=== PATIENT | male | born 1950 | race Caucasian/White ===

== ENCOUNTER 2018-04-29 12:57 | Observation (INO) | payer MEDICARE, SELFPAY ==
[2018-04-29] VITALS (11 sets, daily range): BP systolic 161–190; BP diastolic 105–121; PULSE 79–97; RESP 16–20; TEMP 36.6–37; O2SAT 92–95; BMI 27.1; BMI 26.5; BMI 26.6
--- NOTE | 2018-04-29 13:14 | CT_ITS ---
STUDY: CT ABDOMEN AND PELVIS WITHOUT CONTRAST REASON FOR EXAM: Male, 67 years old. Abdominal pain. Bloody diarrhea. Prior gastric bypass surgery and abdominal aortic aneurysm repair. RADIATION DOSAGE (If Supplied By Facility): CTDIvol = ( 9.35 ) mGy, DLP = ( 450.76 ) mGycm TECHNIQUE: Transaxial images were obtained from the dome of the diaphragm to the symphysis pubis without oral contrast, and without intravenous contrast. Sagittal and coronal images were reconstructed. Individualized dose optimization techniques were used for this CT. COMPARISON: Comparison is made with prior examination dated July 05, 2017. FINDINGS: The visualized lung bases are unremarkable. Coronary artery calcification. There is a 8.7 mm cyst in the superior aspect of the right lobe of the liver. There are surgical clips in the gallbladder fossa consistent with a prior cholecystectomy. Normal spleen. Normal pancreas. Normal bilateral adrenal glands. Stable 3.3 cm x 2.6 m cyst in the lateral inferior portion of the right kidney. Normal left kidney. Status post subtotal gastrectomy. Anastomosis clips are seen in the distal small bowel and right hemicolon as well as in the mid left small bowel loops. These are unchanged. Scattered sigmoid diverticula. There are surgical clips in the region of the appendix consistent with a prior appendectomy. There is scattered atherosclerotic calcification of the abdominal aorta, without a demonstrated aneurysm. Normal inferior vena cava. Normal retroperitoneum. Normal urinary bladder. There is evidence of an umbilical hernia containing nondilated small bowel loops. There are diffuse degenerative changes of the visualized lumbar spine. CT/Abdomen/Pelvis without Cont IMPRESSION: Midline ventral hernia containing nondilated small bowel loops. Postsurgical changes in the stomach as well as in the small bowel and colon. There has been no change. Electronically Signed: Mckay Blackwood MD at 14:07 EDT Tel [phone], Service support ,
--- NOTE | 2018-04-29 13:17 | ED.VISSUMM ---
- ER Visit Summary Date of Service: 04/29/18 Chief Complaint: Abdominal pain History of Present Illness: The patient is a 67 M who presents with abdominal pain as well as bright red blood per rectum. Started 2 days ago. He said he was having abdominal pain and cramping. 2 days ago he had bright red blood per rectum when he had a bowel movement. Yesterday and today he has had black and brown mixed in his stools. He still has some lower abdominal cramping but it is much improved. He states he was on arthritis pills but took all 60 of them and has not started them back for the past 5 days. He has no history of hemorrhoids or any bleeding. He is on aspirin and Plavix for coronary artery disease. Physical Examination: Vital signs reviewed. HEENT exam unremarkable. Heart is regular rate and rhythm without murmurs. Lungs are clear to auscultation. Abdomen is soft and nontender. He does have multiple scars on the abdomen. Extremities reveal no edema. Skin exam normal. Neurologic exam normal. Test Results: Hemoglobin 11.7, potassium 2.9, BUN 20. CAT scan of the abdomen and pelvis reveals a midline hernia with some small bowel but there is no evidence of obstruction. Emergency Department Course and Treatment: Patient's hemoglobin has decreased. It was 15 last year. The etiology of his GI bleed may be from taking all of the arthritis pills. He may have developed an ulcer. Patient will be given Protonix here. Discussed with Dr. Mendes and he will be available to see the patient as needed. Patient was also discussed with hospitalist for admission Treatment Plan: [] Disposition: Admit Impression: GI bleed This note was generated with [employer] dictation software. It may contain incorrect words, spelling, and punctuation that were not noted in review of the chart prior to signing ED Disposition - Plan for ED Patient: Chief Complaint: GI Bleed Referrals: Kelley Tolbert MD [Primary Care Provider] -
[2018-04-29 13:34] LABS: Absolute Lymphocyte Count 1.17 X10^3/ul (0.83-4.51); Absolute Neutrophil Count 5.3 X10^3/uL (2.0-7.7); Basophil# 0.03 X10^3/uL; Basophil% 0.4 % (0-1); Eosinophil# 0.14 X10^3/uL; Eosinophils% 1.9 % (0-5); Hemoglobin 11.7 g/dl (13.0-16.5); Lymphocyte # 1.17 X10^3/ul (4.0); Lymphocyte % 15.9 % (19-41); Mean Corp Hgb Conc 33.4 g/gl (32-36); Mean Corpuscular Hgb 32.1 pg (27.0-32.0); Mean Corpuscular Volume 95.9 fL (80-94); Mean Platelet Vol. 9.2 fl (6.2-12.0); Monocyte# 0.66 X10^3/uL; Neutrophil # 5.33 X10^3/uL (2.7-7.7); Neutrophil % 72.7 % (47-70); POSITIVE COUNT NO; POSITIVE DIFFERENTIAL NO; POSITIVE MORPHOLOGY NO; Platelet Count 215 K/mm3 (150-450); RBC Distribution Width CV 15.2 % (11.6-14.6); RBC Distribution Width SD 52.9 fl (35.1-43.9); Red Blood Count 3.65 M/mm3 (4.6-6.2); White Blood Count 7.3 K/mm3 (4.4-11.0)
[2018-04-29 13:49] LABS: ALB/GLOB Ratio 0.9 RATIO (0.9-2.4); AST(SGOT) 13 U/L (15-37); Alanine Aminotransfer ALT/SGPT 16 U/L (16-61); Albumin, Serum 3.1 g/dL (3.2-5.0); Alkaline Phosphatase 65 U/L (45-117); Anion Gap 8 (5-15); BUN 20 mg/dL (7-18); BUN/Creat Ratio 16.5 RATIO (10-20); Calcium,Total 8.2 mg/dL (8.5-10.1); Chloride 106 mmol/L (98-107); Creatinine, Serum 1.21 mg/dL (0.70-1.30); EST Glomerular Filtration Rate 64 mL/min (>60); Est Glom Filt Rate - Afr Amer 77 mL/min (>60); Globulin 3.4 g/dL (2.2-4.2); Glucose 87 mg/dL (74-106); Potassium 2.9 mmol/L (3.5-5.1); Protein, Total 6.5 g/dL (6.4-8.2); Sodium Level 143 mmol/L (136-145)
--- NOTE | 2018-04-29 14:30 | PCM.HP.STD ---
Problem List (1) Lower GI bleed Status: Acute History of Present Illness Date of Admission: 04/29/18 Chief Complaint: Lower GI bleed The patient is a 67 year old M with an extensive past medical history which includes CAD status post quadruple bypass, and carotid stenting, history of throat cancer, and hypotension. Was admitted by the ED on 04/29/2018 with a complaint of rectal bleeding of one day duration. According to patient, went to have a bowel movement and realized that the toilet bowl was full of from blood with very little bowel movement. It recurred today as well as so he decided coming to the ED. This is first episode of rectal bleeding. He denies any history of diverticular disease, any weight loss, any pain with the rectal bleeding or any vomiting. Patient is on aspirin and Plavix and states that he was put on a medication to help with his arthritis by his primary care doctor. He states he takes 1 tablet a day and on the medication information list, it said not to take medication if patient had heart stents; this is likely therefore an NSAID he was taking. 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 He admitted to mild shortness of breath but that is chronic and also complained of lightheadedness but attributed this to vertigo which he states is chronic since he had his throat cancer. He denied any coffee-ground emesis or abdominal pain. 12 point review of systems otherwise negative. In the ED, his vitals were significant for temperature of 97.9 Fahrenheit, blood pressure 167/116, pulse rate of 92 and respiratory rate of 16. Labs were significant for potassium of 2.9 and hemoglobin of 11.7, platelets where normal at 215. He had a CT of his abdomen and pelvis which was significant for midline ventral hernia with nondilated bowel loops. He has been admitted to be managed for lower GI bleed. [] Past Medical History Past Medical History (Chronic Problems): Chronic Problems (Last Reviewed 04/29/18 @ 09:47 by Terry Dunbar MD) Dyspnea on exertion (Chronic) Fatigue (Chronic) Atherosclerosis of [place] coronary artery of [place] heart without angina pectoris (Chronic) CABG 2012; NSTEMI 08/31/2014; Syncope (Chronic) Bilateral carotid artery stenosis (Chronic) History of gastric bypass (Chronic) Hypertension (Chronic) Hyperlipidemia (Chronic) History of coronary artery bypass graft (Chronic 02/26/15) LEVINE-LAD, SVG to diag and LCx. SVG to PDA of RCA 02/26/2013 @ [facility]; Adrenal insufficiency (Chronic) Generalized weakness (Chronic) Non compliance w medication regimen (Chronic) Orthostatic hypotension (Chronic) Asthma (Chronic) Depression (Chronic) Tonsillar cancer (Chronic) diagnosed in 2005 and treated with surgery, radiation and cis-platinin Hypothyroidism (Chronic) Medical History: Medical History (Last Reviewed 04/29/18 @ 09:47 by Terry Dunbar MD) Dyspnea on exertion (Chronic) R06.09 Fatigue (Chronic) R53.83 Atherosclerosis of [place] coronary artery of [place] heart without angina pectoris (Chronic) I25.10 CABG 2012; NSTEMI 08/31/2014; Syncope (Chronic) R55 Bilateral carotid artery stenosis (Chronic) I65.23 Hypertension (Chronic) I10 Hyperlipidemia (Chronic) E78.5 Adrenal insufficiency (Chronic) E27.40 Hypophosphatemia (Acute) E83.39 Generalized weakness (Chronic) R53.1 Hypokalemia (Acute) E87.6 Non compliance w medication regimen (Chronic) Z91.14 Orthostatic hypotension (Chronic) I95.1 Hypoxemia (Acute) R09.02 Asthma (Chronic) J45.909 Depression (Chronic) F32.9 Tonsillar cancer (Chronic) C09.9 diagnosed in 2005 and treated with surgery, radiation and cis-platinin Hypothyroidism (Chronic) E03.9 Allergies ciprofloxacin [From Cipro] Adverse Reaction (Verified 04/29/18 13:00) Vomiting ciprofloxacin HCl [From Cipro] Adverse Reaction (Verified 04/29/18 13:00) Vomiting metronidazole [From Flagyl] Adverse Reaction (Verified 04/29/18 13:00) Vomiting morphine Adverse Reaction (Verified 04/29/18 13:00) Other ofloxacin [From Floxin] Adverse Reaction (Verified 04/29/18 13:00) Vomiting Home Medications: Ambulatory Orders Medication Instructions Recorded Clopidogrel Bisulfate [Plavix] 75 mg PO DAILY 10/12/15 Levothyroxine [Synthroid] 75 mcg PO DAILY 10/12/15 Albuterol Inhaler [Ventolin Hfa] 1 puff INHALATION Q4H PRN PRN 12/03/16 Potassium Chloride [K-Dur] 20 meq PO BIDCM #60 tab 12/05/16 sertraline 50 mg tablet 50 mg PO QDAY 08/01/17 atorvastatin 20 mg tablet 20 mg PO QDAY 02/03/18 fludrocortisone 0.1 mg tablet 0.1 mg PO QDAY 02/03/18 prednisone 5 mg tablet 5 mg PO BID 02/03/18 guaifenesin ER 1,200 mg tablet, 1,200 mg PO Q12H 04/03/18 extended release 12 hr meclizine 12.5 mg tablet 12.5 mg PO BID-TID PRN 04/03/18 multivitamin tablet 1 tab PO DAILY 04/03/18 Aspirin [Aspirin EC] 81 mg PO DAILY 04/29/18 Etodolac [Lodine] 300 mg PO Q8H 04/29/18 Fluticasone Propionate 2 puff NASAL QHS 04/29/18 Ranitidine [Zantac] 150 mg PO BID 04/29/18 Sucralfate 1 tab PO TID 04/29/18 Surgical History: Surgical History (Last Reviewed 04/29/18 @ 09:47 by Terry Dunbar MD) History of gastric bypass (Chronic) Z98.890 History of coronary artery bypass graft (Chronic) Onset Date: 02/26/15 LEVINE-LAD, SVG to diag and LCx. SVG to PDA of RCA 02/26/2013 @ [facility]; Surgical History: cholecystectomy, coronary bypass surgery, - - cholecystectomy, appendectomy, H&N surgery for tonsillar cancer Lives: Spouse/ Significant Other Smoking Status: Never smoker Alcohol: None Drugs: None - *Family History Maternal Family History: Family History (Last Reviewed 04/29/18 @ 09:47 by Terry Dunbar MD) Mother CAD (coronary artery disease) Lung cancer Father Alcoholism Brother Diabetes Hypertension History Items: No pertinent history Review of Systems Constitutional: Denies: Chills, Fever, Malaise, Weakness, Weight Change, Fatigue Eyes: Denies: Cataracts HEENT: Denies: Head Aches, Sinus Congestion, Sinus Drainage Cardiovascular: Reports: Light Headedness - chronic. Denies: Chest Pain, Chest Tightness, Edema, Heaviness, Orthopnea, Palpitations, Paroxysmal Noc. Dyspnea, Syncope Respiratory: Denies: Cough, Shortness of Breath, Shortness of breath at rest, Sputum production Gastrointestinal: Reports: Hematochezia. Denies: Abdominal Pain, Dyspepsia, Hematemesis, Nausea, Melena, Vomiting Genitourinary: Denies: Dysuria Musculoskeletal: Denies: Joint Pain, Joint Tenderness Skin: Denies: Rash, Wounds Neurological: Denies: Numbness, Tingling, Focal weakness Psychiatric: Denies: Anxiety, Depression, Homicidal Ideations, Suicidal Ideations Hematologic/ Lymphatic: Denies: Easy Bruising, Easy Bleeding VTE Information - Inpt Only VTE Present on Admission: No VTE Mechan Device Prophylaxis: SCD's VTE Pharm Prophylaxis ordered?: Yes Reason prophylaxis not ordered:: Medical Contraindication - rectal bleeding - Physical Exam General: Alert, Oriented x3, Cooperative, No apparent distress HEENT: Atraumatic, PERRLA, EOMI, Normocephalic Oral: Dry Mucosa Neck: Supple, No JVD, Negative Carotid Bruits, No Nodes Lungs: Clear to auscultation, Normal air movement Cardiovascular: Regular rate, Regular Rhythm, Normal S1, Normal S2, No murmurs Abdomen: Bowel Sounds Present, Soft, Non Tender, Non-Distended, No Hepato-splenomegaly, - - well healed site in epigastrum where PEG tube was inserted Extremities: No edema, Capillary Refill Less than 3 Seconds Skin: No rashes, No breakdown Musculoskeletal: No Tenderness to Palpation of Joints or Extremities Lymphatic: No Cervical, Supraclavicular, or Inguinal Adenopathy Neurological: Cranial nerves II-XII grossly intact, Neuro grossly intact, Motor Exam 5/5 strength throughout Psych/Mental Status: Normal Affect, Appropriate, Alert and oriented to time, place, person, mood and affect Vital Signs Temp Pulse Resp BP Pulse Ox 97.9 F 92 16 167/116 H 94 04/29/18 12:58 04/29/18 13:03 04/29/18 12:58 04/29/18 13:03 04/29/18 12:58 Oxygen Delivery Method Room Air Weight: 200 lb Body Mass Index (BMI) 27.1 Finger Stick Blood Glucose 104 Laboratory Tests Past 24 Hrs 04/29/18 04/29/18 13:25 13:25 WBC 7.3 RBC 3.65 L Hgb 11.7 L Hct 35.0 L MCV 95.9 H MCH 32.1 H MCHC 33.4 RDW 15.2 H RDW Differential 52.9 H Plt Count 215 MPV 9.2 Immature Gran % (Auto) 0.100 Neut % (Auto) 72.7 H Lymph % (Auto) 15.9 L [place] % (Auto) 9.0 Eos % (Auto) 1.9 Baso % (Auto) 0.4 Absolute Neuts (auto) 5.3 Absolute Lymphs (auto) 1.17 Total Counted Not Reportable Sodium 143 Potassium 2.9 L Chloride 106 Carbon Dioxide 29.0 Anion Gap 8 BUN 20 H Creatinine 1.21 Estim Creat Clear Calc 66.80 Est GFR (MDRD) Af Amer 77 Est GFR (MDRD) Non-Af 64 BUN/Creatinine Ratio 16.5 Glucose 87 Calcium 8.2 L Total Bilirubin 0.50 AST 13 L ALT 16 Alkaline Phosphatase 65 Total Protein 6.5 Albumin 3.1 L Globulin 3.4 Albumin/Globulin Ratio 0.9 Diagnostic Data Abdomen/Pelvis CT 04/29/18 13:14 IMPRESSION: Midline ventral hernia containing nondilated small bowel loops. Postsurgical changes in the stomach as well as in the small bowel and colon. There has been no change. Electronically Signed: Mckay Blackwood MD at 14:07 EDT Tel [phone], Service support , Assessment/Plan All Active Problems (Last Reviewed 04/29/18 @ 09:47 by Terry Dunbar MD) Lower GI bleed (Acute) Hypophosphatemia (Acute) Hypokalemia (Acute) Hypoxemia (Acute) Angina pectoris (Resolved) NSTEMI (non-ST elevated myocardial infarction) (Resolved) 67-year-old male presenting with a one-day history of lower GI bleeding. 1. Lower GI bleeding likely medication induced vs diverticular disease Bleeding started 1 day ago. It is painless bright red with no associated clots. CT scan of abdomen only showed ventral hernia. Hemoglobin is 11, with baseline from 1 year ago been around 16. Platelets are normal. To [facility] with telemetry. Keep n.p.o. for now. IV fluid normal saline 1 20 cc/h IV pantoprazole 40 mg twice daily. Hold aspirin, Plavix and NSAIDs. consult general surgery. 2. Hypokalemia: Potassium is 2.9 today. Has a history of hypokalemia. Will replace. Will check magnesium level as well. Will monitor. 3. CAD s/p CABG and carotid stents hold aspirin, plavix. continue statins 4. Hypotension: on midodrine, likely for orthostatic hypotension. will monitor 5. Macrocytic anemia Hb is 11.7, with macrocytosis normochromic will check iron panel, vitamin B12 and folate 6. Hypothyroidism: Synthroid 75 mg daily. Will continue. 7. History of throat cancer: stable. S/p treatment. 8. History of adrenal insufficiency: on PO prednisone 5mg bid. Will hold o/a of NPO status, and start IV solumedrol 20mg bid; the slightly higher replacement dose will also help with stress hormone replacement. DVT prophylaxis:SCDs. No anti-coagulation on account of rectal bleeding Prophylaxis: On IV PPI Code Status: Full code. Patient counselled extensively about different types of code status, and differences between DNRCC, DNRCCA and full code. Patient elects to be full code. Total face to face time 17 mins Code Visit Inpatient E&M: 72773 Init Hosp L3 Procedures: 45204 Advncd Care Plan 30 Min
[2018-04-29] MEDS: 0.9% Normal Saline 1,000 ML 100 ML IV (15:57)
[2018-04-29 17:05] LABS: Ferritin 24 ng/mL (26-388); Iron 63 ug/dL (65-175); Iron Binding Capacity,Total 366 ug/dL (250-450); Magnesium 2.2 mg/dL (1.6-2.6)
[2018-04-29 17:10] LABS: International Normalized Ratio 0.9; Prothrombin Time (Protime)PT. 12.5 SECONDS (11.7-14.9); Vitamin B12 287 pg/mL (211-911)
[2018-04-29] MEDS: Sertraline 50 MG Tablet PO (17:19)
--- NOTE | 2018-04-29 20:13 | CON.PCM_ITS ---
Reason for Consult Date of Consultation: 04/29/18 Reason for Consultation: GI Bleed History of Present Illness: The patient is a 67 year old M who recently underwent bilateral carotid artery stenting. The patient is on aspirin and Plavix. he was given a prescription of Naprosyn but cautioned against taking it due to the risk of ulcerations. the patient had an upper respiratory infection at the end of March. He was initially given antibiotics and given a steroid taper. Due to pain, the patient is also taking significant quantities of Excedrin. he noted dark stools for a day, then bloody stools followed by maroon to dark or melena stools again. He denies dizziness. He does note some epigastric discomfort. He presented emergency department. A complete blood count the [facility] in January, had a hemoglobin of 14.7. Today's hemoglobin is 11.7. the patient has a complex past history.I had most recently seen the patient July,. My note at that time included: Salty is a patient I am following for an incisional hernia and a leaking PEG tube site. ?? ? The patient's most significant concern his chronic drainage from a left sub costal wound site. 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 ?The patient noted no problems with the PEG tube site after removal until underwent coronary artery bypass grafting in 2012. ?Since that time, he notes that the upper left incision site which he recalls is being previously the PEG tube site now has chronic drainage. ??He notes no gastric contents but occasionally purulent drainage from this site. ?He recalls his chest tube was located in that site of my PEG tube placement when he underwent his CABG - February 14, 2013. ???He had a previous gastric reduction surgery performed by Dr. Craig Katz which involved stapling of the stomach and a gastrostomy tube placed lower in his left upper quadrant in the . ?When I saw him for PEG tube placement in 2004, I had to place the PEG tube more proximally in the stomach felt to be above his restrictive staple line. ? I did initially seen him in July 2013 for this complaint. ?I obtained a CT scan of the abdomen and pelvis and chest. ?This demonstrated: ? CT ABDOMEN FINDINGS: * ?Midline abdominal hernia containing multiple loops of small bowel noted on image 187. No obstruction is seen. * ?Multiple postsurgical clips in the epigastric region noted image 154. * ?Soft tissue density or changes from previous PEG tube noted image 69 LEFT side of the midline just below the xiphoid process extending into the stomach. No fluid collections are seen in this area. No definite fistulous tract lumen is seen. Liver: Liver texture unremarkable. ?There is a subcentimeter cyst dome of liver RIGHT side image 94. Postsurgical clips in the gallbladder fossa noted Biliary tree: Common duct normal in size. No intrahepatic bile duct dilatation is seen. Pancreas: Unremarkable Spleen: Spleen normal size. ?No focal masses. Adrenals: Normal size. Kidneys: Are seen to function bilaterally. ?RIGHT renal cyst is noted. Lymph nodes: No enlarged lymph nodes are seen. Retroperitoneum: The aorta is normal in size. ?Otherwise unremarkable. CT PELVIS FINDINGS: Lymph Nodes: No enlarged lymph nodes. Urinary bladder: Unremarkable IMPRESSION: 1. ?No fluid collections are seen at the site of the previous PEG tube tract. 2. ?Findings in the chest probably represent post radiation changes 3. ?Midline anterior abdominal wall hernia containing nondilated loops of small bowel ? ? ?I felt it was unusual that the patient's drainage started this many years follo wing PEG tube placement and that he had no problem for over 5 years after the tube was removed. ?I then performed upper and lower endoscopy on 09/15/2013. The patient was found to have gastritis, previous gastrostomy present, patent vertical banded gastroplasty, gastric polyps, and evidence of where the PEG site has not closed completely. Colon noted multiple small diverticula in the sigmoid colon. Pathology demonstrated Antrum biopsy noting chronic inactive gastritis with single and minute non necrotizing granuloma, stomach polypectomy noting fundic gland polyp, and proximal to gastric band biopsy with no diagnostic alteration. H. Pylori was negative. The patient notes no complaints since the procedure. This demonstrated postsurgical changes consistent with his previous gastric stapling. ?My PEG site which demonstrated a indentation intragastrically but I was not able to feed a biopsy probe through the tract or feed a probe from the external abdominal cavity into the stomach through the tract. ? The patient noted that he did well for some time following this endoscopy and had minimal symptoms of drainage but recently he has noted increased drainage and occasionally what sounds like air leaking out of the site. ?He still does not note actual food or gastric contents draining but occasionally purulent discharge. ?He returns for repeat evaluation for the chronic above issue. ? ? The patient in August had a CT scan of the chest. ?This demonstrated the tract with indentation but no signs of intra-abdominal abscess or other abnormality. ? He returns now in September 2016 noting drainage increasing more frequently after eating. ?He also notes that his incisional hernias are enlarging both in the upper midline which seemed to be secondary to his cardiac surgical procedure and an incisional hernia below that site in the upper midline/just slightly supraumbilical region. ???He also has a history of tonsillar cancer. ?He received neck radiation. ?He had a duplex with a finding of carotid stenosis and was referred to Dr. Nieto for vascular surgical evaluation at [facility]. ? I repeated the CT scan with oral contrast this time asking the patient to strain to see if he could have any contrast be demonstrated his ejecting from the site. ?Due to testing and other issues the CT scan was not obtained until March 2017. ?CT scan again demonstrates the tract without any filling of contrast but both the subxiphoid incisional hernia which is just medial to the gastrostomy track and a larger super umbilical incisional hernia are increasing in size and are now giving the patient discomfort. ? The patient's most significant concern his chronic drainage from a left sub costal wound site. 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 ?The patient noted no problems with the PEG tube site since removal. ?He recently underwent coronary artery bypass grafting. ?Since that time, he notes that the upper left incision site which she recalls is being previously the PEG tube site now has chronic drainage. ?He also feels that his sternum seems somewhat unstable. ?He notes no gastric contents but occasionally purulent drainage from this site. ?He does not recall whether a chest tube was located in that site or not post CABG. ? I obtained a CT scan of the abdomen and pelvis and chest. ?This demonstrated no obvious abnormalities related to the coronary bypass grafting and no residual metallic or wire structures. ?This site does seem to be directed towards the PEG site. ?In repeat discussion with Radha Palomo, he notes that he had had gastric banding by Dr. Katz. ?On CT scan, there appears to be a surgical phyllis in the stomach not completely near the PEG site but this does not seem consistent with pure gastric banding. ?He also seems unusual at the patient's drainage what it started this many years following PEG tube placement. ? I communicated with Dr. Narciso Sears [facility] fluid noted a similar problem and is recommended to repeat upper endoscopy with resolution clip placement ? I performed upper endoscopy on May 07, 2017 and placed 2 clips at the leaking gastrostomy site and also noted a degree of gastritis which I performed a biopsy. ?Pathology demonstrated: ? Stomach, antrum, biopsy - Oxyntic type gastric mucosa with changes of chemical gastritis (reactive gastropathy). - No Helicobacter organisms identified. ? The patient notes no further bilious drainage from the site and no bubbling when he eats or coughs like he had previous to clip placement. ?He also notes no irritation around the site which she felt was from the leakage of gastric contents. ? He now notes a scant amount of white drainage from the site. ?He feels this is likely consistent with drainage as noted in past from what he thought was the chest tube site which came out just medial to the previous PEG site. ?His interpretation is that the gastric side is no longer leaking but the chronic issue at from the chest tube site is now the scant but less problematic drainage. Past Medical History Past Medical History (Chronic Problems): Chronic Problems (Last Reviewed 04/29/18 @ 09:47 by Terry Dunbar MD) Dyspnea on exertion (Chronic) Fatigue (Chronic) Atherosclerosis of [place] coronary artery of [place] heart without angina pectoris (Chronic) CABG 2012; NSTEMI 08/31/2014; Syncope (Chronic) Bilateral carotid artery stenosis (Chronic) History of gastric bypass (Chronic) Hypertension (Chronic) Hyperlipidemia (Chronic) History of coronary artery bypass graft (Chronic 02/26/15) LEVINE-LAD, SVG to diag and LCx. SVG to PDA of RCA 02/26/2013 @ [facility]; Adrenal insufficiency (Chronic) Generalized weakness (Chronic) Non compliance w medication regimen (Chronic) Orthostatic hypotension (Chronic) Asthma (Chronic) Depression (Chronic) Tonsillar cancer (Chronic) diagnosed in 2005 and treated with surgery, radiation and cis-platinin Hypothyroidism (Chronic) Medical History: Medical History (Last Reviewed 04/29/18 @ 09:47 by Terry Dunbar MD) Dyspnea on exertion (Chronic) R06.09 Fatigue (Chronic) R53.83 Atherosclerosis of [place] coronary artery of [place] heart without angina pectoris (Chronic) I25.10 CABG 2012; NSTEMI 08/31/2014; Syncope (Chronic) R55 Bilateral carotid artery stenosis (Chronic) I65.23 Hypertension (Chronic) I10 Hyperlipidemia (Chronic) E78.5 Adrenal insufficiency (Chronic) E27.40 Hypophosphatemia (Acute) E83.39 Generalized weakness (Chronic) R53.1 Hypokalemia (Acute) E87.6 Non compliance w medication regimen (Chronic) Z91.14 Orthostatic hypotension (Chronic) I95.1 Hypoxemia (Acute) R09.02 Asthma (Chronic) J45.909 Depression (Chronic) F32.9 Tonsillar cancer (Chronic) C09.9 diagnosed in 2005 and treated with surgery, radiation and cis-platinin Hypothyroidism (Chronic) E03.9 Allergies ciprofloxacin [From Cipro] Adverse Reaction (Verified 04/29/18 13:00) Vomiting ciprofloxacin HCl [From Cipro] Adverse Reaction (Verified 04/29/18 13:00) Vomiting metronidazole [From Flagyl] Adverse Reaction (Verified 04/29/18 13:00) Vomiting morphine Adverse Reaction (Verified 04/29/18 15:21) after 2-3 days I turn into a monster ofloxacin [From Floxin] Adverse Reaction (Verified 04/29/18 13:00) Vomiting Home Medications: Ambulatory Orders Medication Instructions Recorded Clopidogrel Bisulfate [Plavix] 75 mg PO DAILY 10/12/15 Levothyroxine [Synthroid] 75 mcg PO DAILY 10/12/15 Albuterol Inhaler [Ventolin Hfa] 1 puff INHALATION Q4H PRN PRN 12/03/16 Potassium Chloride [K-Dur] 20 meq PO BIDCM #60 tab 12/05/16 sertraline 50 mg tablet 50 mg PO QDAY 08/01/17 atorvastatin 20 mg tablet 20 mg PO QDAY 02/03/18 fludrocortisone 0.1 mg tablet 0.1 mg PO QDAY 02/03/18 prednisone 5 mg tablet 5 mg PO BID 02/03/18 guaifenesin ER 1,200 mg tablet, 1,200 mg PO Q12H 04/03/18 extended release 12 hr meclizine 12.5 mg tablet 12.5 mg PO BID-TID PRN 04/03/18 multivitamin tablet 1 tab PO DAILY 04/03/18 Aspirin [Aspirin EC] 81 mg PO DAILY 04/29/18 Etodolac [Lodine] 300 mg PO Q8H 04/29/18 Fluticasone Propionate 2 puff NASAL QHS 04/29/18 Ranitidine [Zantac] 150 mg PO BID 04/29/18 Sucralfate 1 tab PO TID 04/29/18 Surgical History: Surgical History (Last Reviewed 04/29/18 @ 09:47 by Terry Dunbar MD) History of gastric bypass (Chronic) Z98.890 History of coronary artery bypass graft (Chronic) Onset Date: 02/26/15 LEVINE-LAD, SVG to diag and LCx. SVG to PDA of RCA 02/26/2013 @ [facility]; Surgical History: cholecystectomy, coronary bypass surgery, - - cholecystectomy, appendectomy, H&N surgery for tonsillar cancer Lives: Spouse/ Significant Other Smoking Status: Never smoker Alcohol: None Drugs: None - *Family History Maternal Family History: Family History (Last Reviewed 04/29/18 @ 09:47 by Terry Dunbar MD) Mother CAD (coronary artery disease) Lung cancer Father Alcoholism Brother Diabetes Hypertension History Items: No pertinent history Review of Systems Constitutional: Reports: Fatigue. Denies: Chills, Fever, Weight Change HEENT: Denies: Head Aches, Sinus Congestion, Sinus Drainage Cardiovascular: Denies: Chest Pain, Palpitations Respiratory: Denies: Cough, Shortness of breath at rest, Sputum production Gastrointestinal: Reports: Abdominal Pain, Hematochezia, Melena. Denies: Nausea, Vomiting Genitourinary: Denies: Dysuria Musculoskeletal: Denies: Joint Pain, Joint Tenderness Skin: Denies: Rash, Wounds Neurological: Denies: Numbness, Tingling, Focal weakness Psychiatric: Denies: Anxiety, Depression, Homicidal Ideations, Suicidal Ideations Hematologic/ Lymphatic: Denies: Easy Bruising, Easy Bleeding - Physical Exam General: Alert, Oriented x3, Cooperative HEENT: Atraumatic, PERRLA, EOMI, Normocephalic Neck: Supple, No JVD, Negative Carotid Bruits Lungs: Clear to auscultation, Normal air movement Cardiovascular: Regular rate, No murmurs Abdomen: Bowel Sounds Present, Soft, Tender - In the epigastrium Extremities: No edema, Capillary Refill Less than 3 Seconds Skin: No rashes, No breakdown Musculoskeletal: No Tenderness to Palpation of Joints or Extremities Neurological: Cranial nerves II-XII grossly intact Psych/Mental Status: Normal Affect, Appropriate Vital Signs Temp Pulse Resp BP Pulse Ox 98.3 F 84 20 H 190/119 H 94 04/29/18 15:51 04/29/18 18:00 04/29/18 15:51 04/29/18 15:51 04/29/18 15:51 Oxygen Delivery Method Room Air Weight: 88.859 kg Body Mass Index (BMI) 26.5 Finger Stick Blood Glucose 104 Intake and Output for Last 24 Hours 04/27/18 04/28/18 04/29/18 23:59 23:59 23:59 Intake Total 550 / 550 Output Total 600 / 600 Balance -50 / -50 Laboratory Tests Past 24 Hrs 04/29/18 04/29/18 04/29/18 13:25 13:25 16:01 WBC 7.3 RBC 3.65 L Hgb 11.7 L Hct 35.0 L MCV 95.9 H MCH 32.1 H MCHC 33.4 RDW 15.2 H RDW Differential 52.9 H Plt Count 215 MPV 9.2 Immature Gran % (Auto) 0.100 Neut % (Auto) 72.7 H Lymph % (Auto) 15.9 L Dixon % (Auto) 9.0 Eos % (Auto) 1.9 Baso % (Auto) 0.4 Absolute Neuts (auto) 5.3 Absolute Lymphs (auto) 1.17 Total Counted Not Reportable PT INR Sodium 143 Potassium 2.9 L Chloride 106 Carbon Dioxide 29.0 Anion Gap 8 BUN 20 H Creatinine 1.21 Estim Creat Clear Calc 66.80 Est GFR (MDRD) Af Amer 77 Est GFR (MDRD) Non-Af 64 BUN/Creatinine Ratio 16.5 Glucose 87 Calcium 8.2 L Magnesium 2.2 Iron 63 L TIBC 366 Ferritin 24 L Total Bilirubin 0.50 AST 13 L ALT 16 Alkaline Phosphatase 65 Total Protein 6.5 Albumin 3.1 L Globulin 3.4 Albumin/Globulin Ratio 0.9 Vitamin B12 RBC Folate Hemolysate RBC Folate Hematocrit Blood Type Antibody Screen 04/29/18 04/29/18 04/29/18 16:01 16:01 16:01 WBC RBC Hgb Hct MCV MCH MCHC RDW RDW Differential Plt Count MPV Immature Gran % (Auto) Neut % (Auto) Lymph % (Auto) Dixon % (Auto) Eos % (Auto) Baso % (Auto) Absolute Neuts (auto) Absolute Lymphs (auto) Total Counted PT 12.5 INR 0.9 Sodium Potassium Chloride Carbon Dioxide Anion Gap BUN Creatinine Estim Creat Clear Calc Est GFR (MDRD) Af Amer Est GFR (MDRD) Non-Af BUN/Creatinine Ratio Glucose Calcium Magnesium Iron TIBC Ferritin Total Bilirubin AST ALT Alkaline Phosphatase Total Protein Albumin Globulin Albumin/Globulin Ratio Vitamin B12 287 RBC Folate Hemolysate RBC Folate Hematocrit Blood Type A POSITIVE Antibody Screen NEGATIVE 04/29/18 16:01 WBC RBC Hgb Hct MCV MCH MCHC RDW RDW Differential Plt Count MPV Immature Gran % (Auto) Neut % (Auto) Lymph % (Auto) Dixon % (Auto) Eos % (Auto) Baso % (Auto) Absolute Neuts (auto) Absolute Lymphs (auto) Total Counted PT INR Sodium Potassium Chloride Carbon Dioxide Anion Gap BUN Creatinine Estim Creat Clear Calc Est GFR (MDRD) Af Amer Est GFR (MDRD) Non-Af BUN/Creatinine Ratio Glucose Calcium Magnesium Iron TIBC Ferritin Total Bilirubin AST ALT Alkaline Phosphatase Total Protein Albumin Globulin Albumin/Globulin Ratio Vitamin B12 RBC Folate Hemolysate Pending RBC Folate Pending Hematocrit Pending Blood Type Antibody Screen Assessment/Plan All Active Problems (Last Reviewed 04/29/18 @ 09:47 by Terry Dunbar MD) Lower GI bleed (Acute) Hypophosphatemia (Acute) Hypokalemia (Acute) Hypoxemia (Acute) Angina pectoris (Resolved) NSTEMI (non-ST elevated myocardial infarction) (Resolved) GI bleed-likely upper source due to aspirin, steroids, and Plavix. Patient an unremarkable colonoscopy 2012. He would like not to have another colonoscopy if possible. The patient will be admitted and his hemoglobin will be monitored. If his hemoglobin drops, more significantly. Plan will be for transfusion. Otherwise, I plan to perform upper endoscopy tomorrow. The patient understands the risks, benefits, complications, possible alternatives to endoscopy. Consents to the planned procedure.
[2018-04-29] MEDS: Atorvastatin Calcium 20 MG Tablet PO (21:09)
[2018-04-29] MEDS: guaiFENesin 1,200 MG Tablet 1200 MG PO (21:09)
[2018-04-29] MEDS: Fluticasone 0.05% 1 SPRAY NASAL.SRY 2 SPRAY NASAL (21:10)
[2018-04-29] MEDS: 0.9% NaCl Peripheral Flush Adult/Peds IV (21:10)
[2018-04-29] MEDS: Albuterol 2.5 MG/3 ML VIAL.NEB. INHALATION (22:10)
[2018-04-30] VITALS (21 sets, daily range): BP systolic 127–197; BP diastolic 83–132; PULSE 77–99; RESP 16–20; TEMP 36.5–36.8; O2SAT 93–96; BMI 26.5
[2018-04-30] MEDS: 0.9% Normal Saline 1,000 ML 100 ML IV (02:11)
[2018-04-30] MEDS: Acetaminophen 325 MG Tablet 650 MG PO (03:11)
[2018-04-30 06:24] LABS: Absolute Lymphocyte Count 0.51 X10^3/ul (0.83-4.51); Absolute Neutrophil Count 6.3 X10^3/uL (2.0-7.7); Basophil# 0.02 X10^3/uL; Basophil% 0.3 % (0-1); Hematocrit 35.3 % (40-54); Hemoglobin 11.6 g/dl (13.0-16.5); Lymphocyte # 0.51 X10^3/ul (4.0); Lymphocyte % 7.3 % (19-41); Mean Corp Hgb Conc 32.9 g/gl (32-36); Mean Corpuscular Hgb 31.5 pg (27.0-32.0); Mean Corpuscular Volume 95.9 fL (80-94); Mean Platelet Vol. 9.5 fl (6.2-12.0); Monocyte# 0.22 X10^3/uL; Monocyte% 3.1 % (0-10); Neutrophil # 6.26 X10^3/uL (2.7-7.7); Neutrophil % 89.3 % (47-70); Platelet Count 245 K/mm3 (150-450); RBC Distribution Width CV 14.9 % (11.6-14.6); RBC Distribution Width SD 52.8 fl (35.1-43.9); Red Blood Count 3.68 M/mm3 (4.6-6.2)
[2018-04-30 06:39] LABS: Anion Gap 7 (5-15); BUN 17 mg/dL (7-18); BUN/Creat Ratio 15.9 RATIO (10-20); Calcium,Total 8.1 mg/dL (8.5-10.1); Chloride 108 mmol/L (98-107); Creatinine, Serum 1.07 mg/dL (0.70-1.30); EST Glomerular Filtration Rate 74 mL/min (>60); Est Glom Filt Rate - Afr Amer 89 mL/min (>60); Estimated Creatinine Clearance 75.55 ml/min; Glucose 117 mg/dL (74-106); Potassium 3.6 mmol/L (3.5-5.1); Sodium Level 142 mmol/L (136-145)
[2018-04-30] MEDS: Levothyroxine 75 MCG Tablet PO (06:57)
[2018-04-30 07:02] LABS: Differential Indicated SCAN CRITERIA MET; POSITIVE COUNT NO; POSITIVE DIFFERENTIAL YES; POSITIVE MORPHOLOGY NO
[2018-04-30 07:06] LABS: Differential Comment SCANNED
--- NOTE | 2018-04-30 07:51 | PCM.PN.HOSP ---
Subjective: Patient is a 67-year-old gentleman with multiple comorbidities who presented with lower GI bleed 04/30/2018: Patient seen scheduled to undergo endoscopic evaluation by Dr. Mendes Objective: GENERAL: cooperative HEENT: Atraumatic moist oral mucosa EYES; Anicteric, Normal Conjuctiva NECK; supple, normal thyroid, RESPIRATORY: Clear to auscultation bilaterally, CARDIOVASCULAR: Regular S1 S2, GI: soft, non-tender, normoactive bowel sounds, : No Renal angle tenderness; No marvin EXTREMITIES: No edema, no clubbing, no cyanosis. MUSCULOSKELTAL: No Joint Tenderness; no muscle waisting NEURO: Awake; no lateralizing signs. SKIN: No Rash PSYCH; Normal affect Vitals/I&O's: Vital Signs Temp Pulse Resp BP Pulse Ox 97.7 F L 83 18 143/93 H 94 04/30/18 02:16 04/30/18 07:47 04/30/18 02:16 04/30/18 02:16 04/30/18 02:16 Oxygen Delivery Method Room Air Weight: 88.859 kg Body Mass Index (BMI) 26.5 Finger Stick Blood Glucose 104 Intake and Output for Last 24 Hours 04/28/18 04/29/18 04/30/18 23:59 23:59 23:59 Intake Total 550 / 550 2148 / 2148 Output Total 600 / 600 1800 / 1800 Balance -50 / -50 348 / 348 Musculoskeletal: - - Full range of motion in all major muscle groups. Laboratory Results 04/29/18 13:25: WBC 7.3, RBC 3.65 L, Hgb 11.7 L, Hct 35.0 L, MCV 95.9 H, MCH 32.1 H, MCHC 33.4, RDW 15.2 H, RDW Differential 52.9 H, Plt Count 215, MPV 9.2, Immature Gran % (Auto) 0.100, Neut % (Auto) 72.7 H, Lymph % (Auto) 15.9 L, [place] % (Auto) 9.0, Eos % (Auto) 1.9, Baso % (Auto) 0.4, Absolute Neuts (auto) 5.3, Absolute Lymphs (auto) 1.17, Total Counted Not Reportable 04/29/18 13:25: Sodium 143, Potassium 2.9 L, Chloride 106, Carbon Dioxide 29.0, Anion Gap 8, BUN 20 H, Creatinine 1.21, Estim Creat Clear Calc 66.80, Est GFR (MDRD) Af Amer 77, Est GFR (MDRD) Non-Af 64, BUN/Creatinine Ratio 16.5, Glucose 87, Calcium 8.2 L, Total Bilirubin 0.50, AST 13 L, ALT 16, Alkaline Phosphatase 65, Total Protein 6.5, Albumin 3.1 L, Globulin 3.4, Albumin/Globulin Ratio 0.9 04/29/18 16:01: Magnesium 2.2, Iron 63 L, TIBC 366, Ferritin 24 L 04/29/18 16:01: Blood Type A POSITIVE, Antibody Screen NEGATIVE 04/29/18 16:01: PT 12.5, INR 0.9 04/29/18 16:01: Vitamin B12 287 04/29/18 16:01: RBC Folate Hemolysate Pending, RBC Folate Pending, Hematocrit Pending 04/30/18 05:40: Sodium 142, Potassium 3.6, Chloride 108 H, Carbon Dioxide 27.0, Anion Gap 7, BUN 17, Creatinine 1.07, Estim Creat Clear Calc 75.55, Est GFR (MDRD) Af Amer 89, Est GFR (MDRD) Non-Af 74, BUN/Creatinine Ratio 15.9, Glucose 117 H, Calcium 8.1 L 04/30/18 05:40: WBC 7.0, RBC 3.68 L, Hgb 11.6 L, Hct 35.3 L, MCV 95.9 H, MCH 31.5, MCHC 32.9, RDW 14.9 H, RDW Differential 52.8 H, Plt Count 245, MPV 9.5, Immature Gran % (Auto) 0.000, Neut % (Auto) 89.3 H, Lymph % (Auto) 7.3 L, [place] % (Auto) 3.1, Eos % (Auto) 0.0, Baso % (Auto) 0.3, Absolute Neuts (auto) 6.3, Absolute Lymphs (auto) 0.51 L, Total Counted Not Reportable, Differential Comment SCANNED Current Medications Acetaminophen (Tylenol) 650 mg PO Q6H PRN PRN PRN Reason: Non-cardiac pain (mod-severe) Last Admin: 04/30/18 03:11 Dose: 650 mg Albuterol Sulfate (Ventolin Aerosols) 2.5 mg INHALATION Q4H PRN PRN PRN Reason: SOB &/OR WHEEZING Last Admin: 04/29/18 22:10 Dose: 2.5 mg Atorvastatin Calcium (Lipitor) 20 mg PO QHS [facility] Last Admin: 04/29/18 21:09 Dose: 20 mg Fludrocortisone Acetate (Florinef) 0.1 mg PO DAILY@0800 [facility] Fluticasone Propionate (Flonase Nasal [place]) 2 spray NASAL QHS [facility] Last Admin: 04/29/18 21:10 Dose: 2 spray Guaifenesin (Mucinex) 1,200 mg PO Q12H [facility] Last Admin: 04/29/18 21:09 Dose: 1,200 mg Hydralazine HCl (Apresoline) 10 mg PO Q4H PRN PRN PRN Reason: SBP > 160 Sodium Chloride () 1,000 mls @ 100 mls/hr IV .Q10H [facility] Stop: 04/30/18 11:14 Last Admin: 04/30/18 02:11 Dose: 100 mls/hr Pantoprazole Sodium 40 mg/ (Sodium Chloride) 110 mls @ 330 mls/hr IV Q12 [facility] Last Admin: 04/29/18 21:09 Dose: 330 mls/hr Influenza Virus Vaccine Quadrival (Fluarix/Fluzone) 0.5 ml IM .ONCE ONE Stop: 04/30/18 10:01 Levothyroxine Sodium (Synthroid) 75 mcg PO DAILY@0600 [facility] Last Admin: 04/30/18 06:57 Dose: 75 mcg Magnesium Hydroxide (Milk Of Magnesia) 30 ml PO DAILY PRN PRN PRN Reason: Constipation Meclizine HCl (Antivert) 12.5 mg PO TID PRN PRN PRN Reason: Vertigo Methylprednisolone (Solu-Medrol) 20 mg IV BID [facility] Last Admin: 04/29/18 21:09 Dose: 20 mg Multivitamins (Multivitamin) 1 tablet PO DAILY@0800 [facility] Sertraline HCl (Zoloft) 50 mg PO DAILY [facility] Last Admin: 04/29/18 17:19 Dose: 50 mg Sodium Chloride () 5 - 30 ml IV UD PRN PRN Reason: SALINE FLUSH Last Admin: 04/29/18 21:10 Dose: 10 ml Medical Necessity - Tobacco Use Smoking Status: Never smoker Assessment/Plan All Active Problems (Last Reviewed 04/29/18 @ 09:47 by Terry Dunbar MD) Lower GI bleed (Acute) Hypophosphatemia (Acute) Hypokalemia (Acute) Hypoxemia (Acute) Angina pectoris (Resolved) NSTEMI (non-ST elevated myocardial infarction) (Resolved) Patient is a 67-year-old gentleman with multiple comorbidities who presented with lower GI bleed 1. GI bleed suspected to be NSAID induced gastritis. Patient was on dual antiplatelet therapy held on admission started on Protonix consultation placed to Dr. Murphy with general surgery plan is for patient undergo endoscopic evaluation 2. Hypokalemia corrected per protocol 3. CAD with previous CABG and subsequent stent placement patient dual antiplatelets held on admission in view of above 4. Carotid artery disease with previous carotid stents 5. Hypothyroidism-patient is on levothyroxine home dose continued 6. 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 History of gastric bypass 8. History of adrenal insufficiency: PO prednisone 5mg bid held and started on IV Solumedrol 20mg bid 9. Orthostatic Hypotension: on midodrine 10. Depression patient is on SSRI 11. DVT prophylaxis SCDs only Clinical Impression(s) from Imaging Studies Abdomen/Pelvis CT 04/29/18 13:14 IMPRESSION: Midline ventral hernia containing nondilated small bowel loops. Postsurgical changes in the stomach as well as in the small bowel and colon. There has been no change. Electronically Signed: Mckay Blackwood MD at 14:07 EDT Tel [phone], Service support , Active Medications Acetaminophen (Tylenol) 650 mg PO Q6H PRN PRN PRN Reason: Non-cardiac pain (mod-severe) Last Admin: 04/30/18 03:11 Dose: 650 mg Albuterol Sulfate (Ventolin Aerosols) 2.5 mg INHALATION Q4H PRN PRN PRN Reason: SOB &/OR WHEEZING Last Admin: 04/29/18 22:10 Dose: 2.5 mg Atorvastatin Calcium (Lipitor) 20 mg PO QHS [facility] Last Admin: 09/25/18 21:09 Dose: 20 mg Fludrocortisone Acetate (Florinef) 0.1 mg PO DAILY@0800 [facility] Fluticasone Propionate (Flonase Nasal [place]) 2 spray NASAL QHS [facility] Last Admin: 04/29/18 21:10 Dose: 2 spray Guaifenesin (Mucinex) 1,200 mg PO Q12H [facility] Last Admin: 04/29/18 21:09 Dose: 1,200 mg Hydralazine HCl (Apresoline) 10 mg PO Q4H PRN PRN PRN Reason: SBP > 160 Last Admin: 04/30/18 11:17 Dose: 10 mg Pantoprazole Sodium 40 mg/ (Sodium Chloride) 110 mls @ 330 mls/hr IV Q12 [facility] Last Admin: 04/30/18 09:31 Dose: 330 mls/hr Levothyroxine Sodium (Synthroid) 75 mcg PO DAILY@0600 [facility] Last Admin: 04/30/18 06:57 Dose: 75 mcg Magnesium Hydroxide (Milk Of Magnesia) 30 ml PO DAILY PRN PRN PRN Reason: Constipation Meclizine HCl (Antivert) 12.5 mg PO TID PRN PRN PRN Reason: Vertigo Methylprednisolone (Solu-Medrol) 20 mg IV BID [facility] Last Admin: 04/30/18 09:31 Dose: 20 mg Multivitamins (Multivitamin) 1 tablet PO DAILY@0800 [facility] Sertraline HCl (Zoloft) 50 mg PO DAILY [facility] Last Admin: 04/29/18 17:19 Dose: 50 mg Sodium Chloride () 5 - 30 ml IV UD PRN PRN Reason: SALINE FLUSH Last Admin: 04/29/18 21:10 Dose: 10 ml Code Visit Inpatient E&M: 51212 Subs Hosp L3
[2018-04-30] MEDS: hydrALAZINE 10 MG Tablet PO (11:17)
--- NOTE | 2018-04-30 14:13 | CASEMGMT ---
Addendum entered by Frankie Blood 04/30/18 14:52: -pt at testing. Original Note: RN CM Note. Attempted to complete assessment, pt is @ testing. Baljeet MACDONALDN RN ACM
--- NOTE | 2018-04-30 14:56 | PCM.PN.SRG ---
Subjective: STOOL BECOMING BROWN - Physical Exam General: Alert, Oriented x3 Cardiovascular: Regular rate Abdomen: Bowel Sounds Present Vital Signs Temp Pulse Resp BP Pulse Ox 98.0 F 99 18 133/99 H 94 04/30/18 12:09 04/30/18 12:23 04/30/18 12:09 04/30/18 12:09 04/30/18 12:09 Oxygen Delivery Method Room Air Weight: 88.9 kg Body Mass Index (BMI) 26.5 Finger Stick Blood Glucose 104 Intake and Output for Last 24 Hours 04/28/18 04/29/18 04/30/18 23:59 23:59 23:59 Intake Total 550 / 550 2676 / 2676 Output Total 600 / 600 2200 / 2200 Balance -50 / -50 476 / 476 Laboratory Tests Past 24 Hrs 04/29/18 04/29/18 04/29/18 16:01 16:01 16:01 WBC RBC Hgb Hct MCV MCH MCHC RDW RDW Differential Plt Count MPV Immature Gran % (Auto) Neut % (Auto) Lymph % (Auto) [place] % (Auto) Eos % (Auto) Baso % (Auto) Absolute Neuts (auto) Absolute Lymphs (auto) Total Counted Differential Comment PT 12.5 INR 0.9 Sodium Potassium Chloride Carbon Dioxide Anion Gap BUN Creatinine Estim Creat Clear Calc Est GFR (MDRD) Af Amer Est GFR (MDRD) Non-Af BUN/Creatinine Ratio Glucose Calcium Magnesium 2.2 Iron 63 L TIBC 366 Ferritin 24 L Vitamin B12 RBC Folate Hemolysate RBC Folate Hematocrit Blood Type A POSITIVE Antibody Screen NEGATIVE 04/29/18 04/29/18 04/30/18 16:01 16:01 05:40 WBC RBC Hgb Hct MCV MCH MCHC RDW RDW Differential Plt Count MPV Immature Gran % (Auto) Neut % (Auto) Lymph % (Auto) [place] % (Auto) Eos % (Auto) Baso % (Auto) Absolute Neuts (auto) Absolute Lymphs (auto) Total Counted Differential Comment PT INR Sodium 142 Potassium 3.6 Chloride 108 H Carbon Dioxide 27.0 Anion Gap 7 BUN 17 Creatinine 1.07 Estim Creat Clear Calc 75.55 Est GFR (MDRD) Af Amer 89 Est GFR (MDRD) Non-Af 74 BUN/Creatinine Ratio 15.9 Glucose 117 H Calcium 8.1 L Magnesium Iron TIBC Ferritin Vitamin B12 287 RBC Folate Hemolysate Pending RBC Folate Pending Hematocrit Pending Blood Type Antibody Screen 04/30/18 05:40 WBC 7.0 RBC 3.68 L Hgb 11.6 L Hct 35.3 L MCV 95.9 H MCH 31.5 MCHC 32.9 RDW 14.9 H RDW Differential 52.8 H Plt Count 245 MPV 9.5 Immature Gran % (Auto) 0.000 Neut % (Auto) 89.3 H Lymph % (Auto) 7.[address] [place] % (Auto) 3.1 Eos % (Auto) 0.0 Baso % (Auto) 0.3 Absolute Neuts (auto) 6.3 Absolute Lymphs (auto) 0.51 L Total Counted Not Reportable Differential Comment SCANNED PT INR Sodium Potassium Chloride Carbon Dioxide Anion Gap BUN Creatinine Estim Creat Clear Calc Est GFR (MDRD) Af Amer Est GFR (MDRD) Non-Af BUN/Creatinine Ratio Glucose Calcium Magnesium Iron TIBC Ferritin Vitamin B12 RBC Folate Hemolysate RBC Folate Hematocrit Blood Type Antibody Screen Medical Necessity - Tobacco Use Smoking Status: Never smoker Assessment/Plan All Active Problems (Last Reviewed 04/29/18 @ 09:47 by Terry Dunbar MD) Lower GI bleed (Acute) Hypophosphatemia (Acute) Hypokalemia (Acute) Hypoxemia (Acute) Angina pectoris (Resolved) NSTEMI (non-ST elevated myocardial infarction) (Resolved) GI bleed-likely upper source due to aspirin, steroids, and Plavix. Patient an unremarkable colonoscopy 2012. He would like not to have another colonoscopy if possible. The patient will be admitted and his hemoglobin will be monitored. If his hemoglobin drops, more significantly. Plan will be for transfusion. Planned for EGD today - BP in endoscopy suite - 211/137 - case cancelled, 10mg labetalol given. Will plan to try again tomorrow at 10:30am. The patient understands the risks, benefits, complications, possible alternatives to endoscopy. Consents to the planned procedure.
--- NOTE | 2018-04-30 15:12 | PCM.PN.HOSP ---
Vitals/I&O's: Vital Signs Temp Pulse Resp BP Pulse Ox 98.0 F 99 18 133/99 H 94 04/30/18 12:09 04/30/18 12:23 04/30/18 12:09 04/30/18 12:09 04/30/18 12:09 Oxygen Delivery Method Room Air Weight: 88.9 kg Body Mass Index (BMI) 26.5 Finger Stick Blood Glucose 104 Intake and Output for Last 24 Hours 04/28/18 04/29/18 04/30/18 23:59 23:59 23:59 Intake Total 550 / 550 2676 / 2676 Output Total 600 / 600 2200 / 2200 Balance -50 / -50 476 / 476 Laboratory Results 04/29/18 16:01: Magnesium 2.2, Iron 63 L, TIBC 366, Ferritin 24 L 04/29/18 16:01: Blood Type A POSITIVE, Antibody Screen NEGATIVE 04/29/18 16:01: PT 12.5, INR 0.9 04/29/18 16:01: Vitamin B12 287 04/29/18 16:01: RBC Folate Hemolysate Pending, RBC Folate Pending, Hematocrit Pending 04/30/18 05:40: Sodium 142, Potassium 3.6, Chloride 108 H, Carbon Dioxide 27.0, Anion Gap 7, BUN 17, Creatinine 1.07, Estim Creat Clear Calc 75.55, Est GFR (MDRD) Af Amer 89, Est GFR (MDRD) Non-Af 74, BUN/Creatinine Ratio 15.9, Glucose 117 H, Calcium 8.1 L 04/30/18 05:40: WBC 7.0, RBC 3.68 L, Hgb 11.6 L, Hct 35.3 L, MCV 95.9 H, MCH 31.5, MCHC 32.9, RDW 14.9 H, RDW Differential 52.8 H, Plt Count 245, MPV 9.5, Immature Gran % (Auto) 0.000, Neut % (Auto) 89.3 H, Lymph % (Auto) 7.3 L, [place] % (Auto) 3.1, Eos % (Auto) 0.0, Baso % (Auto) 0.3, Absolute Neuts (auto) 6.3, Absolute Lymphs (auto) 0.51 L, Total Counted Not Reportable, Differential Comment SCANNED Current Medications Acetaminophen (Tylenol) 650 mg PO Q6H PRN PRN PRN Reason: Non-cardiac pain (mod-severe) Last Admin: 04/30/18 03:11 Dose: 650 mg Albuterol Sulfate (Ventolin Aerosols) 2.5 mg INHALATION Q4H PRN PRN PRN Reason: SOB &/OR WHEEZING Last Admin: 04/29/18 22:10 Dose: 2.5 mg Atorvastatin Calcium (Lipitor) 20 mg PO QHS [facility] Last Admin: 04/29/18 21:09 Dose: 20 mg Fludrocortisone Acetate (Florinef) 0.1 mg PO DAILY@0800 [facility] Fluticasone Propionate (Flonase Nasal [place]) 2 spray NASAL QHS [facility] Last Admin: 04/29/18 21:10 Dose: 2 spray Guaifenesin (Mucinex) 1,200 mg PO Q12H [facility] Last Admin: 04/29/18 21:09 Dose: 1,200 mg Hydralazine HCl (Apresoline) 10 mg PO Q4H PRN PRN PRN Reason: SBP > 160 Last Admin: 04/30/18 11:17 Dose: 10 mg Pantoprazole Sodium 40 mg/ (Sodium Chloride) 110 mls @ 330 mls/hr IV Q12 [facility] Last Admin: 04/30/18 09:31 Dose: 330 mls/hr Levothyroxine Sodium (Synthroid) 75 mcg PO DAILY@0600 [facility] Last Admin: 04/30/18 06:57 Dose: 75 mcg Magnesium Hydroxide (Milk Of Magnesia) 30 ml PO DAILY PRN PRN PRN Reason: Constipation Meclizine HCl (Antivert) 12.5 mg PO TID PRN PRN PRN Reason: Vertigo Methylprednisolone (Solu-Medrol) 20 mg IV BID [facility] Last Admin: 04/30/18 09:31 Dose: 20 mg Multivitamins (Multivitamin) 1 tablet PO DAILY@0800 [facility] Sertraline HCl (Zoloft) 50 mg PO DAILY [facility] Last Admin: 04/29/18 17:19 Dose: 50 mg Sodium Chloride () 5 - 30 ml IV UD PRN PRN Reason: SALINE FLUSH Last Admin: 04/29/18 21:10 Dose: 10 ml Medical Necessity - Tobacco Use Smoking Status: Never smoker Assessment/Plan All Active Problems (Last Reviewed 04/29/18 @ 09:47 by Terry Dunbar MD) Lower GI bleed (Acute) Hypophosphatemia (Acute) Hypokalemia (Acute) Hypoxemia (Acute) Angina pectoris (Resolved) NSTEMI (non-ST elevated myocardial infarction) (Resolved) Patient is a 67-year-old gentleman with multiple comorbidities who presented with lower GI bleed 1. GI bleed suspected to be NSAID induced gastritis. Patient was on dual antiplatelet therapy held on admission started on Protonix consultation placed to Dr. Murphy with general surgery plan is for patient undergo endoscopic evaluation 2. Hypokalemia corrected per protocol 3. CAD with previous CABG and subsequent stent placement patient dual antiplatelets held on admission in view of above 4. Carotid artery disease with previous carotid stents 5. Hypothyroidism-patient is on levothyroxine home dose continued 6. 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 History of gastric bypass 8. Adrenal insufficiency: on PO prednisone 5mg bid held and started on IV Solumedrol 20mg bid 9. Orthostatic Hypotension: on midodrine 10. Depression patient is on SSRI 11. DVT prophylaxis SCDs only Clinical Impression(s) from Imaging Studies Abdomen/Pelvis CT 04/29/18 13:14 IMPRESSION: Midline ventral hernia containing nondilated small bowel loops. Postsurgical changes in the stomach as well as in the small bowel and colon. There has been no change. Electronically Signed: Mckay Blackwood MD at 14:07 EDT Tel [phone], Service support , Active Medications Acetaminophen (Tylenol) 650 mg PO Q6H PRN PRN PRN Reason: Non-cardiac pain (mod-severe) Last Admin: 04/30/18 03:11 Dose: 650 mg Albuterol Sulfate (Ventolin Aerosols) 2.5 mg INHALATION Q4H PRN PRN PRN Reason: SOB &/OR WHEEZING Last Admin: 04/29/18 22:10 Dose: 2.5 mg Atorvastatin Calcium (Lipitor) 20 mg PO QHS [facility] Last Admin: 04/29/18 21:09 Dose: 20 mg Fludrocortisone Acetate (Florinef) 0.1 mg PO DAILY@0800 [facility] Fluticasone Propionate (Flonase Nasal [place]) 2 spray NASAL QHS [facility] Last Admin: 04/29/18 21:10 Dose: 2 spray Guaifenesin (Mucinex) 1,200 mg PO Q12H [facility] Last Admin: 04/29/18 21:09 Dose: 1,200 mg Hydralazine HCl (Apresoline) 10 mg PO Q4H PRN PRN PRN Reason: SBP > 160 Last Admin: 04/30/18 11:17 Dose: 10 mg Pantoprazole Sodium 40 mg/ (Sodium Chloride) 110 mls @ 330 mls/hr IV Q12 [facility] Last Admin: 04/30/18 09:31 Dose: 330 mls/hr Levothyroxine Sodium (Synthroid) 75 mcg PO DAILY@0600 [facility] Last Admin: 04/30/18 06:57 Dose: 75 mcg Magnesium Hydroxide (Milk Of Magnesia) 30 ml PO DAILY PRN PRN PRN Reason: Constipation Meclizine HCl (Antivert) 12.5 mg PO TID PRN PRN PRN Reason: Vertigo Methylprednisolone (Solu-Medrol) 20 mg IV BID [facility] Last Admin: 04/30/18 09:31 Dose: 20 mg Multivitamins (Multivitamin) 1 tablet PO DAILY@0800 [facility] Sertraline HCl (Zoloft) 50 mg PO DAILY [facility] Last Admin: 04/29/18 17:19 Dose: 50 mg Sodium Chloride () 5 - 30 ml IV UD PRN PRN Reason: SALINE FLUSH Last Admin: 04/29/18 21:10 Dose: 10 ml
[2018-04-30] MEDS: ALPRAZolam 0.5 MG Tablet PO (17:48)
--- NOTE | 2018-04-30 18:10 | SUR.PHASEI ---
Patient transferred to PACU from Endo Suite at 1455. Patient did not have procedure done due to elevate diastolic bp as high as 120. Dr. Efe Isaac is with patient and admnistering Labetolol IV. Please refer to anesthesia record for times Labetolol was given. Brought to PACU to monitor BP while Labetolol is being given.
--- NOTE | 2018-04-30 19:18 | SUR.PHASEI ---
PATIENT RECEIVED A TOTAL OF 25 MG OF LABETOLOL OVER APPROXIMATELY [address] DONNA LAINEZ STATED PATIENT COULD BE TRANSFERRED BACK TO HIS ORIGINAL ROOM WITH CLOSE MONITORING FROM DR JAUREGUI. DR. VALVERDE PLANS TO DO SCOPE TOMORROW AM. PATIENT STATES HE DOES NOT WANT SCOPE AND HE WANTS TO GO HOME. ALL OF THIS INFORMATION WAS REPORTED TO CHARGE NURSE, JEWEL.
[2018-04-30] MEDS: Fluticasone 0.05% 1 SPRAY NASAL.SRY 2 SPRAY NASAL (22:29)
[2018-04-30] MEDS: guaiFENesin 1,200 MG Tablet 1200 MG PO (22:30)
[2018-04-30] MEDS: 0.9% NaCl Peripheral Flush Adult/Peds IV (22:30)
[2018-04-30] MEDS: Atorvastatin Calcium 20 MG Tablet PO (22:30)
[2018-05-01] VITALS (14 sets, daily range): BP systolic 69–162; BP diastolic 51–100; PULSE 77–92; RESP 16–18; TEMP 36.6–37.3; O2SAT 92–97; BMI 26.6
--- NOTE | 2018-05-01 | IMM_PTH ---
PATIENT: SHAYAN ROSENTHAL LOC: [facility] U#:[id number] AGE/SX: 67/M ROOM: CO31 RE04/29/[address]: Dr. David Issa MD : [id number] BED: 1 DIS: 05/01/2018 SPEC #: [id number] RECD: 05/02/18 11:12 STATUS: SOUT REQ #: [id number] HERNÁN: 05/01/18 00:[address]: Craig Murphy DEPT: IMMUNOHISTOCHEMISTRY RECD BY: Miracle Canales ENTERED: 05/02/18 11:12 SP TYPE: IMMUNO OTHR DR: MD Dr. David Stark MD Dr. Nana Yaa Koram, MD Dr. Richard Guttman, MD Tissues: A - Stomach, NOS Procedures: H Pylori (initial) Comments: @ Ordering doctor for H.PYLORI edited from to @ by DANIEL at 05/02/18 1133 @ Submitting doctor edited from to @ by DANIEL at 05/02/18 1133 PHYSICIAN & INSTITUTION [place] [id number] SPECIMEN INFORMATION: Tissue Source: A - Antral biopsy Clinical Info: GI bleed Specimen Number: [id number] CPT code: 77722 METHODOLOGY: Deparaffinized sections of prefer/formalin-fixed tissue or PAP/DQ stained slides are incubated with monoclonal/polyclonal antibodies/oligonucleotide probes. Localization is made via biotin free immunoperoxidase method. Appropriate controls are performed and reacted as expected. Results on target cell population are indicated in the following table: RESULTS: ANTIBODY / CLONE RESULT Block A H Pylori (polyclonal) negative These tests were developed and their performance characteristics determined by [facility]. They may not have been cleared or approved by the [place]. Food and Drug Administration. The FDA has determined that such clearance or approval is not necessary. INTERPRETATION: A. Antral biopsy: Negative for Helicobacter pylori organisms. SJ:donell 05/05/18
--- NOTE | 2018-05-01 07:17 | PCM.PN.HOSP ---
Subjective: Patient seen scheduled to undergo endoscopic evaluation this a.m. Patient did receive Xanax for anxiety the day prior still remains sleepy according to him Objective: GENERAL: cooperative HEENT: Atraumatic moist oral mucosa EYES; Anicteric, Normal Conjuctiva NECK; supple, normal thyroid, RESPIRATORY: Clear to auscultation bilaterally, CARDIOVASCULAR: Regular S1 S2, GI: soft, non-tender, normoactive bowel sounds, : No Renal angle tenderness; No marvin EXTREMITIES: No edema, no clubbing, no cyanosis. MUSCULOSKELTAL: No Joint Tenderness; no muscle waisting NEURO: Awake; no lateralizing signs. SKIN: No Rash PSYCH; Normal affect Vitals/I&O's: Vital Signs Temp Pulse Resp BP Pulse Ox 98.8 F 81 18 124/87 H 94 05/01/18 03:43 05/01/18 06:28 05/01/18 03:43 05/01/18 03:43 05/01/18 03:43 Oxygen Delivery Method Room Air Weight: 88.9 kg Body Mass Index (BMI) 26.5 Finger Stick Blood Glucose 104 Intake and Output for Last 24 Hours 04/29/18 04/30/18 05/01/18 23:59 23:59 23:59 Intake Total 550 / 550 3101 / 3101 495 / 495 Output Total 600 / 600 2750 / 2750 1075 / 1075 Balance -50 / -50 351 / 351 -580 / -580 Current Medications Acetaminophen (Tylenol) 650 mg PO Q6H PRN PRN PRN Reason: Non-cardiac pain (mod-severe) Last Admin: 04/30/18 03:11 Dose: 650 mg Albuterol Sulfate (Ventolin Aerosols) 2.5 mg INHALATION Q4H PRN PRN PRN Reason: SOB &/OR WHEEZING Last Admin: 04/29/18 22:10 Dose: 2.5 mg Alprazolam (Xanax) 0.5 mg PO TID PRN PRN PRN Reason: ANXIETY Last Admin: 04/30/18 17:48 Dose: 0.5 mg Atorvastatin Calcium (Lipitor) 20 mg PO QHS [facility] Last Admin: 04/30/18 22:30 Dose: 20 mg Fludrocortisone Acetate (Florinef) 0.1 mg PO DAILY@0800 [facility] Last Admin: 04/30/18 17:52 Dose: Not Given Fluticasone Propionate (Flonase Nasal [place]) 2 spray NASAL QHS [facility] Last Admin: 04/30/18 22:29 Dose: 2 spray Guaifenesin (Mucinex) 1,200 mg PO Q12H [facility] Last Admin: 04/30/18 22:30 Dose: 1,200 mg Hydralazine HCl (Apresoline) 10 mg PO Q4H PRN PRN PRN Reason: SBP > 160 Last Admin: 04/30/18 11:17 Dose: 10 mg Pantoprazole Sodium 40 mg/ (Sodium Chloride) 110 mls @ 330 mls/hr IV Q12 [facility] Last Admin: 04/30/18 22:36 Dose: 330 mls/hr Levothyroxine Sodium (Synthroid) 75 mcg PO DAILY@0600 [facility] Last Admin: 05/01/18 05:24 Dose: Not Given Magnesium Hydroxide (Milk Of Magnesia) 30 ml PO DAILY PRN PRN PRN Reason: Constipation Meclizine HCl (Antivert) 12.5 mg PO TID PRN PRN PRN Reason: Vertigo Methylprednisolone (Solu-Medrol) 20 mg IV BID [facility] Last Admin: 04/30/18 22:30 Dose: 20 mg Multivitamins (Multivitamin) 1 tablet PO DAILY@0800 [facility] Last Admin: 04/30/18 17:48 Dose: Not Given Sertraline HCl (Zoloft) 50 mg PO DAILY [facility] Last Admin: 04/30/18 18:50 Dose: Not Given Sodium Chloride () 5 - 30 ml IV UD PRN PRN Reason: SALINE FLUSH Last Admin: 04/30/18 22:30 Dose: 10 ml Medical Necessity - Tobacco Use Smoking Status: Never smoker Assessment/Plan All Active Problems (Last Reviewed 04/29/18 @ 09:47 by Terry Dunbar MD) Lower GI bleed (Acute) Hypophosphatemia (Acute) Hypokalemia (Acute) Hypoxemia (Acute) Angina pectoris (Resolved) NSTEMI (non-ST elevated myocardial infarction) (Resolved) Patient is a 67-year-old gentleman with multiple comorbidities who presented with lower GI bleed 1. GI bleed suspected to be NSAID induced gastritis. Patient was on dual antiplatelet therapy held on admission started on Protonix consultation placed to Dr. Murphy with general surgery plan is for patient undergo endoscopic evaluation 2. Hypokalemia corrected per protocol 3. CAD with previous CABG and subsequent stent placement patient dual antiplatelets held on admission in view of above 4. Carotid artery disease with previous carotid stents 5. Hypothyroidism-patient is on levothyroxine home dose continued 6. 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 History of gastric bypass 8. Adrenal insufficiency: on PO prednisone 5mg bid held and started on IV Solumedrol 20mg bid 9. Orthostatic Hypotension: on midodrine 10. Depression patient is on SSRI 11. DVT prophylaxis SCDs only Clinical Impression(s) from Imaging Studies Abdomen/Pelvis CT 04/29/18 13:14 IMPRESSION: Midline ventral hernia containing nondilated small bowel loops. Postsurgical changes in the stomach as well as in the small bowel and colon. There has been no change. Electronically Signed: Mckay Blackwood MD at 14:07 EDT Tel [phone], Service support , Active Medications Acetaminophen (Tylenol) 650 mg PO Q6H PRN PRN PRN Reason: Non-cardiac pain (mod-severe) Last Admin: 04/30/18 03:11 Dose: 650 mg Albuterol Sulfate (Ventolin Aerosols) 2.5 mg INHALATION Q4H PRN PRN PRN Reason: SOB &/OR WHEEZING Last Admin: 04/29/18 22:10 Dose: 2.5 mg Atorvastatin Calcium (Lipitor) 20 mg PO QHS [facility] Last Admin: 04/29/18 21:09 Dose: 20 mg Fludrocortisone Acetate (Florinef) 0.1 mg PO DAILY@0800 [facility] Fluticasone Propionate (Flonase Nasal Citra) 2 spray NASAL QHS [facility] Last Admin: 04/29/18 21:10 Dose: 2 spray Guaifenesin (Mucinex) 1,200 mg PO Q12H [facility] Last Admin: 04/29/18 21:09 Dose: 1,200 mg Hydralazine HCl (Apresoline) 10 mg PO Q4H PRN PRN PRN Reason: SBP > 160 Last Admin: 04/30/18 11:17 Dose: 10 mg Pantoprazole Sodium 40 mg/ (Sodium Chloride) 110 mls @ 330 mls/hr IV Q12 [facility] Last Admin: 04/30/18 09:31 Dose: 330 mls/hr Levothyroxine Sodium (Synthroid) 75 mcg PO DAILY@0600 [facility] Last Admin: 04/30/18 06:57 Dose: 75 mcg Magnesium Hydroxide (Milk Of Magnesia) 30 ml PO DAILY PRN PRN PRN Reason: Constipation Meclizine HCl (Antivert) 12.5 mg PO TID PRN PRN PRN Reason: Vertigo Methylprednisolone (Solu-Medrol) 20 mg IV BID [facility] Last Admin: 04/30/18 09:31 Dose: 20 mg Multivitamins (Multivitamin) 1 tablet PO DAILY@0800 [facility] Sertraline HCl (Zoloft) 50 mg PO DAILY [facility] Last Admin: 04/29/18 17:19 Dose: 50 mg Sodium Chloride () 5 - 30 ml IV UD PRN PRN Reason: SALINE FLUSH Last Admin: 04/29/18 21:10 Dose: 10 ml Code Visit Inpatient E&M: 30178 Subs Hosp L2
--- NOTE | 2018-05-01 11:00 | EGD_PTH ---
PATIENT: SHAYAN ROSENTHAL LOC: MS3 U#:[id number] AGE/SX: 67/M ROOM: CT315 RE04/29/[address]: Dr. David Issa MD : 1950 BED: 1 DIS: 05/01/2018 SPEC #: [id number] RECD: 05/01/18 13:38 STATUS: JOSEF REQ #: [id number] HERNÁN: 05/01/18 11:[address]: Craig Murphy DEPT: SURGICAL PATHOLOGY RECD BY: Carolee Peck ENTERED: 05/01/18 14:08 SP TYPE: EGD BIOPSY OTHR DR: MD Dr. David Stark MD Dr. Nana Yaa Koram, MD Dr. Richard Guttman, MD Tissues: A - Gastric mucous membrane B - Gastric mucous membrane Procedures: Special Stain Group II Surgery Specimen Level IV Alcian Blue/PAS (control) Comments: @ Ordering doctor for SUIV edited from to @ by DANIEL at 05/02/18817 @ Submitting doctor edited from to @ by RGOOD at 05/02/18817 HEADER OPERATION: EGD ([facility] [place]) PRE-OP DIAGNOSIS: GI bleed TISSUE SUBMITTED: A. Antral biopsy, B. GE junction biopsy MICROSCOPIC DIAGNOSIS A. Antral biopsy: Mild gastritis. See microscopic description and comment. B. GE junction, biopsy: A fragment of gastroesophageal mucosa with chronic inflammation. Intestinal metaplasia (goblet cell metaplasia) is not identified. See comment. SJ:rg 05/02/18 COMMENT A. The results of immunohistochemistry for Helicobacter pylori will be reported separately ([id number]). B. Alcian blue/PAS stain with matched control is used in the evaluation of the specimen. MICROSCOPIC DESCRIPTION Slides are reviewed. A. The specimen shows fragments of gastric mucosa with chronic inflammatory cell infiltrates in the lamina propria consisting of lymphocytes and plasma cells, consistent with mild chronic gastritis. GROSS DESCRIPTION A - Received in fixative is one container labeled with the patient's name and designated antral biopsy. The specimen consists of one irregular fragment of light bell soft tissue that measures 0.8 x 0.2 x 0.1 cm. The specimen is totally submitted in one cassette. B - Received in fixative is one container labeled with the patient's name and designated GE junction biopsy. The specimen consists of one irregular fragment of light bell soft tissue that measures 0.6 x 0.2 x 0.1 cm. The specimen is totally submitted in one cassette. / SJ:donell 05/01/18 TC:3 CPT: 26154 x2, 09249
--- NOTE | 2018-05-01 11:25 | OP.ENDO_ITS ---
Patient Name: Salty Culver Procedure Date: 05/01/2018 11:02 AM Date of : 1950 Age: 67 Procedure: Upper GI endoscopy Indications: Suspected upper gastrointestinal bleeding Providers: Craig Murphy MD Referring MD: Shanda Andrade Medicines: Monitored Anesthesia Care Patient Profile: This is a 67 year old male. Refer to note in patient chart for documentation of history and physical. Complications: No immediate complications. Procedure: Pre-Anesthesia Assessment: - Prior to the procedure, a History and Physical was performed, and patient medications and allergies were reviewed. The patient is competent. The risks and benefits of the procedure and the sedation options and risks were discussed with the patient. All questions were answered and informed consent was obtained. Patient identification and proposed procedure were verified by the physician, the nurse and the irrigation district manager in the procedure room. Mental Status Examination: alert and oriented. Airway Examination: normal oropharyngeal airway and neck mobility. Respiratory Examination: clear to auscultation. CV Examination: normal. Prophylactic Antibiotics: The patient does not require prophylactic antibiotics. Prior Anticoagulants: The patient has taken Plavix (clopidogrel), last dose was day of procedure. ASA Grade Assessment: III - A patient with severe systemic disease. After reviewing the risks and benefits, the patient was deemed in satisfactory condition to undergo the procedure. The anesthesia plan was to use monitored anesthesia care (MAC). Immediately prior to administration of medications, the patient was re-assessed for adequacy to receive sedatives. The heart rate, respiratory rate, oxygen saturations, blood pressure, adequacy of pulmonary ventilation, and response to care were monitored throughout the procedure. The physical status of the patient was re-assessed after the procedure. After obtaining informed consent, the endoscope was passed under direct vision. Throughout the procedure, the patient's blood pressure, pulse, and oxygen saturations were monitored continuously. The gastroscope was introduced through the mouth, and advanced to the jejunum. The upper GI endoscopy was accomplished without difficulty. The patient tolerated the procedure well. Scope In: 11:07:24 AM Scope Out: 11:17:26 AM Total Procedure Duration Time 0 hours 10 minutes 2 seconds Findings: The examined jejunum was normal. The examined duodenum was normal. Evidence of a patent vertical banded gastroplasty was found. A gastric pouch was found. The staple line appeared intact. Evidence of a Silastic band was not seen. Evidence of a gastric bypass was found. A gastric pouch was found. The [id number]-[id number] limb was examined. There was evidence of a closed previous gastrostomy present in the gastric body. This was characterized by erythema. Scattered mild inflammation characterized by erythema, friability and granularity was found in the entire examined stomach. Biopsies were taken with a cold forceps for Helicobacter pylori cultures. Biopsies were taken with a cold forceps for histology. Mildly severe esophagitis with no bleeding was found. Biopsies were taken with a cold forceps for histology. Impression: - Normal examined jejunum. - Normal examined duodenum. - Patent vertical banded gastroplasty and intact staple line. - Gastric bypass. - Closed previous gastrostomy present characterized by erythema. - Chronic gastritis. Biopsied. - Mildly severe reflux esophagitis. Biopsied. Recommendation: - Return to my office in 1 week. - Use Prilosec (omeprazole) 40 mg PO daily. - Continue present medications. Procedure Code(s): --- Professional --- 25627, Esophagogastroduodenoscopy, flexible, transoral; with biopsy, single or multiple CPT copyright 2017 [employer]. All rights reserved. The codes documented in this report are preliminary and upon certified adapted physical educator review may be revised to meet current compliance requirements. Craig Murphy MD 05/01/2018 11:24:46 AM This report has been signed electronically. Number of Addenda: 0 Note Initiated On: 05/01/2018 11:02 AM
--- NOTE | 2018-05-01 12:00 | DCINST_ITS ---
You will use the following diet at home:: No restrictions Your food should be the consistency of: Regular Discharge Activity: Return to Normal Activity Allergies/Adverse Reactions: Allergies ciprofloxacin [From Cipro] Adverse Reaction (Verified 04/29/18 13:00) Vomiting ciprofloxacin HCl [From Cipro] Adverse Reaction (Verified 04/29/18 13:00) Vomiting metronidazole [From Flagyl] Adverse Reaction (Verified 04/29/18 13:00) Vomiting morphine Adverse Reaction (Verified 04/29/18 15:21) after 2-3 days I turn into a monster ofloxacin [From Floxin] Adverse Reaction (Verified 04/29/18 13:00) Vomiting Medications to take at Discharge Clopidogrel Bisulfate [Plavix] 75 mg PO DAILY 10/12/15 Levothyroxine [Synthroid] 75 mcg PO DAILY 10/12/15 Albuterol Inhaler [Ventolin Hfa] 1 puff INHALATION Q4H PRN PRN 12/03/16 sertraline 50 mg tablet 50 mg PO QDAY 08/01/17 atorvastatin 20 mg tablet 20 mg PO QDAY 02/03/18 fludrocortisone 0.1 mg tablet 0.1 mg PO QDAY 02/03/18 prednisone 5 mg tablet 5 mg PO BID 02/03/18 guaifenesin ER 1,200 mg tablet, extended release 12 hr 1,200 mg PO Q12H 04/03/18 meclizine 12.5 mg tablet 12.5 mg PO BID-TID PRN 04/03/18 multivitamin tablet 1 tab PO DAILY 04/03/18 Aspirin [Aspirin EC] 81 mg PO DAILY 04/29/18 Fluticasone Propionate 2 puff NASAL QHS 04/29/18 Ranitidine [Zantac] 150 mg PO BID 04/29/18 Sucralfate 1 tab PO TID 04/29/18 potassium chloride ER 20 mEq tablet,extended release(part/cryst) 40 meq PO BIDCM #60 tab 04/30/18 Pantoprazole Sodium [Protonix] 40 mg PO DAILY #60 tablet 05/01/18 The following prescriptions were given: Pantoprazole Sodium [Protonix] 40 mg PO DAILY #60 tablet Primary Care Physician: Kelley Tolbert MD [Primary Care Provider] - Please follow up with your Primary Care Physician in: in 1-2 weeks Test Results: Test results from this visit will be discussed in further detail at your follow- up appointment, if applicable. Please Follow Up With: Craig Murphy MD When: in 1-2 weeks Proposed Discharge Date: 05/01/18
--- NOTE | 2018-05-01 12:00 | DS.PCM_ITS ---
Discharge Date and Diagnosis Date of Admission: 04/29/18 Date of Discharge: 05/01/18 - Primary Discharge Diagnosis Acute gastritis; NSAID induced - Secondary Discharge Diagnosis Chronic Problems (Last Reviewed 04/29/18 @ 09:47 by Terry Dunbar MD) Dyspnea on exertion (Chronic) Fatigue (Chronic) Atherosclerosis of [place] coronary artery of [place] heart without angina pectoris (Chronic) CABG 2012; NSTEMI 08/31/2014; Syncope (Chronic) Bilateral carotid artery stenosis (Chronic) History of gastric bypass (Chronic) Hypertension (Chronic) Hyperlipidemia (Chronic) History of coronary artery bypass graft (Chronic 02/26/15) LEVINE-LAD, SVG to diag and LCx. SVG to PDA of RCA 02/26/2013 @ [facility]; Adrenal insufficiency (Chronic) Generalized weakness (Chronic) Non compliance w medication regimen (Chronic) Orthostatic hypotension (Chronic) Asthma (Chronic) Depression (Chronic) Tonsillar cancer (Chronic) diagnosed in 2005 and treated with surgery, radiation and cis-platinin Hypothyroidism (Chronic) Hospital Course and Treatment Imaging Results: Clinical Impression(s) from Imaging Studies Abdomen/Pelvis CT 04/29/18 13:14 IMPRESSION: Midline ventral hernia containing nondilated small bowel loops. Postsurgical changes in the stomach as well as in the small bowel and colon. There has been no change. Electronically Signed: Mckay Blackwood MD at 14:07 EDT Tel [phone], Service support , Labs (Last 48 Hours) 04/29/18 04/29/18 04/29/18 13:25 13:25 16:01 WBC 7.3 RBC 3.65 L Hgb 11.7 L Hct 35.0 L MCV 95.9 H MCH 32.1 H MCHC 33.4 RDW 15.2 H RDW Differential 52.9 H Plt Count 215 MPV 9.2 Immature Gran % (Auto) 0.100 Neut % (Auto) 72.7 H Lymph % (Auto) 15.[address] [place] % (Auto) 9.0 Eos % (Auto) 1.9 Baso % (Auto) 0.4 Absolute Neuts (auto) 5.3 Absolute Lymphs (auto) 1.17 Total Counted Not Reportable Differential Comment PT INR Sodium 143 Potassium 2.9 L Chloride 106 Carbon Dioxide 29.0 Anion Gap 8 BUN 20 H Creatinine 1.21 Estim Creat Clear Calc 66.80 Est GFR (MDRD) Af Amer 77 Est GFR (MDRD) Non-Af 64 BUN/Creatinine Ratio 16.5 Glucose 87 Calcium 8.2 L Magnesium 2.2 Iron 63 L TIBC 366 Ferritin 24 L Total Bilirubin 0.50 AST 13 L ALT 16 Alkaline Phosphatase 65 Total Protein 6.5 Albumin 3.1 L Globulin 3.4 Albumin/Globulin Ratio 0.9 Vitamin B12 RBC Folate Hemolysate RBC Folate Hematocrit Blood Type Antibody Screen 04/29/18 04/29/18 04/29/18 16:01 16:01 16:01 WBC RBC Hgb Hct MCV MCH MCHC RDW RDW Differential Plt Count MPV Immature Gran % (Auto) Neut % (Auto) Lymph % (Auto) [place] % (Auto) Eos % (Auto) Baso % (Auto) Absolute Neuts (auto) Absolute Lymphs (auto) Total Counted Differential Comment PT 12.5 INR 0.9 Sodium Potassium Chloride Carbon Dioxide Anion Gap BUN Creatinine Estim Creat Clear Calc Est GFR (MDRD) Af Amer Est GFR (MDRD) Non-Af BUN/Creatinine Ratio Glucose Calcium Magnesium Iron TIBC Ferritin Total Bilirubin AST ALT Alkaline Phosphatase Total Protein Albumin Globulin Albumin/Globulin Ratio Vitamin B12 287 RBC Folate Hemolysate RBC Folate Hematocrit Blood Type A POSITIVE Antibody Screen NEGATIVE 04/29/18 04/30/18 04/30/18 16:01 05:40 05:40 WBC 7.0 RBC 3.68 L Hgb 11.6 L Hct 35.3 L MCV 95.9 H MCH 31.5 MCHC 32.9 RDW 14.9 H RDW Differential 52.8 H Plt Count 245 MPV 9.5 Immature Gran % (Auto) 0.000 Neut % (Auto) 89.3 H Lymph % (Auto) 7.[address] [place] % (Auto) 3.1 Eos % (Auto) 0.0 Baso % (Auto) 0.3 Absolute Neuts (auto) 6.3 Absolute Lymphs (auto) 0.51 L Total Counted Not Reportable Differential Comment SCANNED PT INR Sodium 142 Potassium 3.6 Chloride 108 H Carbon Dioxide 27.0 Anion Gap 7 BUN 17 Creatinine 1.07 Estim Creat Clear Calc 75.55 Est GFR (MDRD) Af Amer 89 Est GFR (MDRD) Non-Af 74 BUN/Creatinine Ratio 15.9 Glucose 117 H Calcium 8.1 L Magnesium Iron TIBC Ferritin Total Bilirubin AST ALT Alkaline Phosphatase Total Protein Albumin Globulin Albumin/Globulin Ratio Vitamin B12 RBC Folate Hemolysate Pending RBC Folate Pending Hematocrit Pending Blood Type Antibody Screen Operations: None Summary of Care Provided: Physical exams at the time of discharge: GENERAL: cooperative HEENT: Atraumatic moist oral mucosa EYES; Anicteric, Normal Conjuctiva NECK; supple, normal thyroid, RESPIRATORY: Clear to auscultation bilaterally, CARDIOVASCULAR: Regular S1 S2, GI: soft, non-tender, normoactive bowel sounds, : No Renal angle tenderness; No marvin EXTREMITIES: No edema, no clubbing, no cyanosis. MUSCULOSKELTAL: No Joint Tenderness; no muscle waisting NEURO: Awake; no lateralizing signs. SKIN: No Rash PSYCH; Normal affect Patient is a 67-year-old gentleman with multiple comorbidities who presented with lower GI bleed 1. GI bleed suspected to be NSAID induced gastritis. Patient was on dual antiplatelet therapy held on admission started on Protonix consultation placed to Dr. Murphy with general surgery and underwent endoscopic evaluation on 05/01/2018 findings included evidence of gastritis which was felt to be secondary to patient's NSAID use; discontinued on discharge and prescribed PPI 2. Hypokalemia corrected per protocol 3. CAD with previous CABG and subsequent stent placement patient dual antiplatelets held on admission in view of above 4. Carotid artery disease with previous carotid stents 5. Hypothyroidism-patient is on levothyroxine home dose continued 6. History of Tonsillar cancer diagnosed in 2006 and treated with surgery, radiation and cis-platinin patient has since remained in remission 7. History of gastric bypass 8. Adrenal insufficiency: on PO prednisone 5mg bid held and started on IV Solumedrol 20mg bid 9. Orthostatic Hypotension: on midodrine 10. Depression patient is on SSRI 11. DVT prophylaxis SCDs only Discharge Diet: No Restrictions Discharge Activity: Return to Normal Activity Home Medications: Medications to take at Discharge Clopidogrel Bisulfate [Plavix] 75 mg PO DAILY 10/12/15 Levothyroxine [Synthroid] 75 mcg PO DAILY 10/12/15 Albuterol Inhaler [Ventolin Hfa] 1 puff INHALATION Q4H PRN PRN 12/03/16 sertraline 50 mg tablet 50 mg PO QDAY 08/01/17 atorvastatin 20 mg tablet 20 mg PO QDAY 02/03/18 fludrocortisone 0.1 mg tablet 0.1 mg PO QDAY 02/03/18 prednisone 5 mg tablet 5 mg PO BID 02/03/18 guaifenesin ER 1,200 mg tablet, extended release 12 hr 1,200 mg PO Q12H 04/03/18 meclizine 12.5 mg tablet 12.5 mg PO BID-TID PRN 04/03/18 multivitamin tablet 1 tab PO DAILY 04/03/18 Aspirin [Aspirin EC] 81 mg PO DAILY 04/29/18 Fluticasone Propionate 2 puff NASAL QHS 04/29/18 Ranitidine [Zantac] 150 mg PO BID 04/29/18 Sucralfate 1 tab PO TID 04/29/18 potassium chloride ER 20 mEq tablet,extended release(part/cryst) 40 meq PO BIDCM #60 tab 04/30/18 Pantoprazole Sodium [Protonix] 40 mg PO DAILY #60 tablet 05/01/18 Following Prescrptions Were Given to Patient: Pantoprazole Sodium [Protonix] 40 mg PO DAILY #60 tablet Primary Care Physician: Kelley Tolbert MD [Primary Care Provider] - Please follow up with your Primary Care Physician in: in 1-2 weeks Please Follow Up With: Craig Murphy MD When: in 1-2 weeks Disposition: Home Minutes spent on discharge:: 35 Patient Condition:: Stable Medical Necessity - Tobacco Use Smoking Status: Never smoker Meaningful Use Info Meaningful Use Diagnoses (Choose all that apply): None applicable Code Visit Inpatient E&M: 82216 Disch Hosp
[2018-05-01] MEDS: guaiFENesin 1,200 MG Tablet 1200 MG PO (12:47)
[2018-05-01] MEDS: 0.9% NaCl Peripheral Flush Adult/Peds IV (12:48)
[2018-05-01 16:10] LABS: Folate, Hemolysate Test 473.5 ng/mL (Not Estab.); Folate, RBC (Hct) Test 38.6 % (37.5-51.0)
[2018-05-02 12:41] LABS: Folates, RBC Test 1227 ng/mL (>498)
== END 2018-05-01 14:54 | disposition home or self-care (01) ==
LOC: ED 13:24 → MS3 14:47
PROVIDERS: Surgery; Admitting Provider Student in an Organized Health Care Education/Training Program; Emergency Provider Emergency Medicine; Family Provider Internal Medicine; PCP Internal Medicine; Referring Provider Student in an Organized Health Care Education/Training Program; Visit Provider Internal Medicine
PROC: 0DJ08ZZ Inspection of Upper Intestinal Tract, Via Natural or Artificial Opening Endoscopic (ICD-10-PCS; CPT 43235; principal; 2018-05-01 10:25)
DX: K29.00 Acute gastritis without bleeding (principal); T39.395A Adverse effect of other nonsteroidal anti-inflammatory drugs [NSAID], initial encounter; I25.10 Atherosclerotic heart disease of native coronary artery without angina pectoris; E78.5 Hyperlipidemia, unspecified; E03.9 Hypothyroidism, unspecified; I10 Essential (primary) hypertension; Z23 Encounter for immunization; M19.90 Unspecified osteoarthritis, unspecified site; K43.9 Ventral hernia without obstruction or gangrene; E87.6 Hypokalemia; E27.40 Unspecified adrenocortical insufficiency; D53.9 Nutritional anemia, unspecified; I95.1 Orthostatic hypotension; Z79.899 Other long term (current) drug therapy; Z79.02 Long term (current) use of antithrombotics/antiplatelets; Z95.1 Presence of aortocoronary bypass graft; Z79.82 Long term (current) use of aspirin; Z85.89 Personal history of malignant neoplasm of other organs and systems; Z92.21 Personal history of antineoplastic chemotherapy; Z92.3 Personal history of irradiation; F32.9 Major depressive disorder, single episode, unspecified; Z53.09 Procedure and treatment not carried out because of other contraindication
CPT/HCPCS: 43239 ×2; 36415; 74176; 80048; 80053; 82607; 82728; 82747; 83540; 83550; 83735; 85014; 85025; 85610; 86850; 86900; 88305; 88313; 88342; 94640; 96361; 96365; 96366; 96375; 96376; 97802; 99218; 99282; J7030; J7040; J7120; 90686; A4216; G0378

== ENCOUNTER → 2018-08-21 12:14 | Outpatient (CLI) | payer MEDICARE, SELFPAY ==
[2018-08-21 11:41] VITALS: BMI 28.2
--- NOTE | 2018-08-21 12:19 | RAD_ITS ---
STUDY: X-RAY CHEST REASON FOR EXAM: Male, 67 years old. Shortness of breath/dyspnea. Chest pain. Persistent cough. TECHNIQUE: PA and lateral views of the chest. COMPARISON: Comparison is made with prior study dated April 23, 2017. FINDINGS: Hyperinflation. Surgical clips are seen in the right cervical region. Mild degree of persistent increased markings in the lingular segment of the left upper lobe suggestive of scarring. There is no demonstrated pleural abnormality. Sternal cerclage wires and vascular clips are present from a prior sternotomy and coronary artery bypass graft procedure (CABG). Normal mediastinum and becca. Normal visualized pulmonary arteries. There is atherosclerotic tortuosity of the aortic arch and descending thoracic aorta. There are degenerative changes of the visualized thoracic spine. Normal visualized ribs, clavicles, and shoulders. Surgical clips are seen in the epigastric region as well as in the right upper quadrant. RAD/Chest PA and Lateral IMPRESSION: Stable mild degree of increased markings in the lingular segment left upper lobe suggestive of scarring. Electronically Signed: Mckay Blackwood MD at 10:18 EST Tel [phone], Service support ,
[2018-08-21 13:47] LABS: Absolute Lymphocyte Count 0.71 X10^3/ul (0.83-4.51); Absolute Neutrophil Count 11.1 X10^3/uL (2.0-7.7); Basophil# 0.02 X10^3/uL; Basophil% 0.2 % (0-1); Eosinophil# 0.01 X10^3/uL; Eosinophils% 0.1 % (0-5); Hemoglobin 14.4 g/dl (13.0-16.5); Lymphocyte # 0.71 X10^3/ul (4.0); Lymphocyte % 5.6 % (19-41); Mean Corpuscular Hgb 32.4 pg (27.0-32.0); Mean Corpuscular Volume 101.4 fL (80-94); Mean Platelet Vol. 10.3 fl (6.2-12.0); Monocyte% 5.6 % (0-10); Neutrophil # 11.05 X10^3/uL (2.7-7.7); Neutrophil % 87.9 % (47-70); Platelet Count 182 K/mm3 (150-450); RBC Distribution Width SD 56.2 fl (35.1-43.9); Red Blood Count 4.44 M/mm3 (4.6-6.2); White Blood Count 12.6 K/mm3 (4.4-11.0)
[2018-08-21 13:48] LABS: POSITIVE COUNT NO; POSITIVE DIFFERENTIAL NO; POSITIVE MORPHOLOGY NO
[2018-08-21 14:12] LABS: Anion Gap 8 (5-15); BUN 18 mg/dL (7-18); BUN/Creat Ratio 15.1 RATIO (10-20); Calcium,Total 9.1 mg/dL (8.5-10.1); Chloride 109 mmol/L (98-107); Creatinine, Serum 1.19 mg/dL (0.70-1.30); EST Glomerular Filtration Rate 65 mL/min (>60); Est Glom Filt Rate - Afr Amer 79 mL/min (>60); Glucose 105 mg/dL (74-106); Potassium 4.3 mmol/L (3.5-5.1); Sodium Level 142 mmol/L (136-145)
[2018-08-21 14:19] LABS: BNP,B-Type NATRIURETIC PEPTIDE 146.5 pg/mL (0-100)
--- OUTSIDE RECORDS SUMMARY | 2018-10-26 04:15 | XMS RPT_ITS ---
:1950 Author Organization OHIP Care Team Providers Name Role Phone Terry Dunbar Attending Unavailable Jacob Freitas Attending Unavailable Ganta, Laura Referring Unavailable Ganta, Laura Primary Care Unavailable Terry Dunbar Attending Unavailable Ganta, Laura Referring Unavailable Ganta, Laura Primary Care Unavailable Koram, Shanda Keyla Admitting Unavailable Koram, Shanda Keyla Referring Unavailable Ana Murphy Consulting Unavailable David Issa Attending Unavailable Koram, Shanda Keyla Admitting Unavailable Koram, Shanda Keyla Attending Unavailable Koram, Shanda Keyla Referring Unavailable Ganta, Laura Primary Care Unavailable Ana Murphy Consulting Unavailable Koram, Shanda Keyla Consulting Unavailable RoofJacob H Attending Unavailable Ganta, Laura Referring Unavailable Roof, Jacob H Attending Unavailable Roof, Jacob H Referring Unavailable Ganta, Laura Primary Care Unavailable Koram, Shanda Keyla Admitting Unavailable David Issa Attending Unavailable Koram, Shanda Keyla Referring Unavailable Ganta, Laura Primary Care Unavailable Ana Murphy Consulting Unavailable David Issa Consulting Unavailable Koram, Shanda Keyla Admitting Unavailable David Issa Attending Unavailable Koram, Shanda Keyla Referring Unavailable Ganta, Laura Primary Care Unavailable Ana Murphy Consulting Unavailable David Issa Consulting Unavailable LUTHER NIETO Admitting Unavailable LUTHER NIETO Attending Unavailable NIETO, LUTHER SCHNEIDER Admitting Unavailable LUTHER NIETO Attending Unavailable NIETOLUTHER Attending Unavailable GANTA, LAURA Referring Unavailable NIETO, LUTHER SCHNEIDER Admitting Unavailable LUTHER NIETO Attending Unavailable NIETOLUTHER Attending Unavailable GANTA, LAURA Referring Unavailable JOVANA WHITAKER (PA) Attending Unavailable MARCO FRIAS (PA) Referring Unavailable MOOREROSALEE (M48 M60 ARMOR CREWMAN) Referring Unavailable GANTA, LAURA Attending Unavailable MARILYN HERMAN (FLIGHT ATTENDANT) Referring Unavailable GANTA, LAURA Referring Unavailable MOORELUKASROSALEE (M48 M60 ARMOR CREWMAN) Referring Unavailable KATYJEREMIAS (M48 M60 ARMOR CREWMAN) Attending Unavailable GANTA, LAURA Referring Unavailable GANTA, LAURA Referring Unavailable HAAGEN, MAUDE (M48 M60 ARMOR CREWMAN) Referring Unavailable HAAGEN, MAUDE (M48 M60 ARMOR CREWMAN) Attending Unavailable HAAGEN, MAUDE (M48 M60 ARMOR CREWMAN) Referring Unavailable HAAGEN, MAUDE (M48 M60 ARMOR CREWMAN) Referring Unavailable HAAGEN, MAUDE (M48 M60 ARMOR CREWMAN) Referring Unavailable HAAGEN, MAUDE (M48 M60 ARMOR CREWMAN) Referring Unavailable HAAGEN, MAUDE (M48 M60 ARMOR CREWMAN) Attending Unavailable HAAGEN, MAUDE (M48 M60 ARMOR CREWMAN) Attending Unavailable HAAGEN, MAUDE (M48 M60 ARMOR CREWMAN) Referring Unavailable HAAGEN, MAUDE (M48 M60 ARMOR CREWMAN) Referring Unavailable HAAGEN, MAUDE (M48 M60 ARMOR CREWMAN) Attending Unavailable HAAGEN, MAUDE (M48 M60 ARMOR CREWMAN) Referring Unavailable GANTA, LAURA Attending Unavailable JEREMIAS BURNS (M48 M60 ARMOR CREWMAN) Attending Unavailable GANTA, LAURA Referring Unavailable JEREMIAS BURNS (M48 M60 ARMOR CREWMAN) Attending Unavailable GANTA, LAURA Referring Unavailable JEREMIAS BURNS (M48 M60 ARMOR CREWMAN) Attending Unavailable GANTA, LAURA Referring Unavailable GANTA, LAURA Attending Unavailable GANTA, LAURA Referring Unavailable JEREMIAS BURNS ([facility]) Attending Unavailable GANTA, LAURA Attending Unavailable GANTA, LAURA Referring Unavailable LUTHER NIETO Admitting Unavailable LUTHER NIETO Attending Unavailable IMCA Primary Care Unavailable LUTHER NIETO Attending Unavailable IMCA Referring Unavailable IMCA Primary Care Unavailable LUTHER NIETO Admitting Unavailable LUTHER NIETO Attending Unavailable IMCA Primary Care Unavailable LUTHER NIETO Attending Unavailable IMCA Referring Unavailable IMCA Primary Care Unavailable LUTHER NIETO Admitting Unavailable LUTHER NIETO Attending Unavailable IMCA Primary Care Unavailable LUTHER NIETO Attending Unavailable IMCA Referring Unavailable IMCA Primary Care Unavailable PROBLEMS PROBLEMS DATE TYPE CONDITION / CODE ATTENDING STATUS SOURCE Unknown I25.10 - Atherosclerotic Jacob Freitas Active [place] 9 heart disease of [place] [facility] coronary artery without Hospital angina pectoris / Repository I25.10(ICD-10) Unknown Z95.1 - Presence of Jacob Freitas Active [place] 9 aortocoronary bypass Community graft / Z95.1(ICD-10) Hospital Repository Unknown I65.23 - Occlusion and Jacob Freitas Active [place] 9 stenosis of bilateral Community carotid arteries / Hospital I65.23(ICD-10) Repository Unknown E78.00 - Pure Jacob Freitas Active [place] 9 hypercholesterolemia, Community unspecified / Hospital E78.00(ICD-10) Repository Unknown I10 - Essential (primary) Jacob Freitas Active [place] 9 hypertension / Community I10(ICD-10) Hospital Repository Unknown R06.09 - Other forms of Jacob Freitas Active [place] 9 dyspnea / R06.09(ICD-10) Community Hospital Repository Unknown K92.2 - Gastrointestinal Manjinder, Terry Active [place] 8 hemorrhage, unspecified / Community K92.2(ICD-10) Hospital Repository Unknown E78.0 - Pure Jacob Freitas Active [place] 8 hypercholesterolemia / Community E78.0(ICD-10) Hospital Repository Unknown I95.1 - Orthostatic RoofJacob Active [place] 8 hypotension / Community I95.1(ICD-10) Hospital Repository Active Occlusion and stenosis of [facility] 8 bilateral carotid [facility] Other arteries / I65.23(ICD-10) [place] Repository Active Other specified NATE Active [place] 8 postprocedural states / [facility] Other Z98.890(ICD-10) [place] Repository Admitting Unknown / UNK(Unknown) NATE Active [facility] 8 diagnosis [facility] Repository Active Generalized anxiety NA Active [place] 8 disorder / F41.1(ICD-10) Clinic Main [place] Repository Active Anemia, unspecified / NA Active [place] 8 D64.9(ICD-10) Clinic Main [place] Repository Active Bronchitis, not specified NA Active [place] 8 as acute or chronic / Clinic Main J40(ICD-10) [place] Repository Active Other injury of Active [place] 8 unspecified body region, Clinic Main initial encounter / [place] T14.8XXA(ICD-10) Repository Active Local infection of the Active [place] 8 skin and subcutaneous [facility] Main tissue, unspecified / [place] L08.9(ICD-10) Repository Active Chest pain, unspecified / Active [place] 8 R07.9(ICD-10) Clinic Main [place] Repository Active Hemorrhage due to Active [place] 8 vascular prosthetic [facility] Main devices, implants and [place] grafts, initial encounter Repository / T82.838A(ICD-10) Active Contusion of abdominal Active [place] 8 wall, initial encounter / Clinic Main S30.1XXA(ICD-10) [place] Repository Active Dizziness and giddiness / NA Active [place] 7 R42(ICD-10) Clinic Main [place] Repository Active Other hypotension / NA Active [place] 8 I95.89(ICD-10) Clinic Main [place] Repository Active Essential (primary) NA Active [place] 8 hypertension / Clinic Main I10(ICD-10) [place] Repository Active Other shelter (current) NA Active [place] 8 drug therapy / Clinic Main Z79.899(ICD-10) [place] Repository Active 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 Clinic Main (chronic) / D50.0(ICD-10) [place] Repository Active Occlusion and stenosis of NATE Active [place] 8 right carotid artery / LUTHERHELEN SCHNEIDER [facility] Other I65.21(ICD-10) [place] Repository Active Unknown / UNK(Unknown) NATE Active [place] 8 LUTHER SCHNEIDER [facility] Other [place] Repository Active Vitamin D deficiency, NA [facility] unspecified / Clinic Main E55.9(ICD-10) [place] Repository Active Nonscarring hair loss, NA Active [place] 8 unspecified / Clinic Main L65.9(ICD-10) [place] Repository Active Pain, unspecified / NA Active [place] 8 R52(ICD-10) Clinic Main [place] Repository Active Unspecified injury of [facility] [place] by [facility] 8 left lower leg, initial Clinic Main encounter / [place] S89.92XA(ICD-10) Repository Active Occlusion and stenosis of Irma NIETO [place] 8 unspecified carotid [facility] Other artery / I65.29(ICD-10) [place] Repository Active Encounter for other NA [facility] 8 preprocedural examination Clinic Main / Z01.818(ICD-10) [place] Repository PROCEDURES PROCEDURES No Procedure Records FoundRESULTS RESULTS PROGRESS Observed: 08/22/2018 Status: COMPLETED Source: [place] 10:38 AM [facility] RE[facility] HNO ID: [id number] Author: Laura [place] Service: (none) Author Type: Physician Type: Progress Notes Filed: 08/26/2018 10:19 AM Note Text: Reason for Visit Patient presents with: Established Patient: 2 month follow up-HTN,dizzy,stomach bloated,right sided pain Shayan Culver is a 67 year old male who presents here today for Above Complaints. Health Maintenance DTAP,TDAP,TD(1 - Tdap) HEPATITIS C SCREENING PNEUMOVAX AGE 65 AND OVER WITH 5YR LOOKBACK(1) HPI Patient has been feeling poorly for the past few weeks. Complains of feeling sick in his stomach constantly for the past few days. 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 He has very labile blood pressures. Today he noted to me that his granddaughter is home with him, his DIL is being very difficult , grandchildren do not feel safe. He is very very worried about the whole situation. Son is upset as his has been cheating him for the past many years, and since his granddaughters are at home he is constantly reminded of the sad situation at home. All of the stress makes his bp high and with his carotid body disease he is not able to control his blood pressures and we have a hard time controlling his blood pressures Also today he notes His vertigo is out of control. He was not to take naproxen due to gi Issue but he has been taking it not realizing it.which I think is contributing to his gi issues. He was asked not to take any NSAIDS but he still takes them on a daily basis. He has bloating and indigestion, I think from the nsaids No problem-specific Assessment AND Plan notes found for this encounter. PAST MEDICAL HISTORY Diagnosis Date - BPH (benign prostatic hyperplasia) - CAD (coronary artery disease) - Carotid stenosis L>R - COPD (chronic obstructive pulmonary disease) ([facility]) - Essential hypertension, benign Labile hyper and hypotensive - GERD (gastroesophageal reflux disease) 2012 - History of gastric bypass - Hyperlipidemia - Hypothyroidism - Major depressive disorder, single episode, moderate (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) 02/2013 CABG x 4 - Orthostatic hypotension - Reflux esophagitis Confirmed by Ba swallow. - Seasonal allergies Dr. Espana. - Stroke (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 - Unspecified asthma(493.90) - Vertebral artery occlusion left - Vitamin D deficiency 2012 PAST SURGICAL HISTORY Procedure Laterality Date - APPENDECTOMY 1961 - CABG (4) VEIN GRAFTS AND ARTERIAL GRAFT(S) 02/26/13 - CAROTID STENT PLACEMENT-INTRAOP Right 12/06/2017 - COLONOSCOP W/ OR W/O BRSH SPEC 09/15/13 few diverticula - 10 year follow up - COLONOSCOPY several - EGD W/O BRSH SPECIMEN W/BX 09/15/13 gastritis, gastric band in place, thin PEG site - EGD W/O OR W/BRUSH/WASH 03/28/2010 EGD - EGD W/O OR W/BRUSH/WASH 05/07/2017 EGD - HEART CATHETERIZATION 09/01/14 diffuse disease, no revascularizable target - HEART SURGERY HX - KIDNEY SURGERY HX - PAST SURGICAL HISTORY OF ~1977 kidney stones - PAST SURGICAL HISTORY OF 1976 intestinal bypass - PAST SURGICAL HISTORY OF ~1977 partial intestinal bypass reversal - PAST SURGICAL HISTORY OF 1994 gastric banding - PAST SURGICAL HISTORY OF 01/18/2005 throat cancer - PAST SURGICAL HISTORY OF 11/08/2017 Lt carotid arteriogram with stenting - PEG TUBE 03/20/2005 removed after 1 1/2y - REMOVAL GALLBLADDER ~1977 - XRAY CHEST 1 VIEW 06/06/15 hyperinflation and scarring FAMILY HISTORY Problem Relation Age of Onset - Diabetes Mother - Coronary Artery Disease Mother - Psychiatry Mother depression - Cancer Mother lung - Cancer Father esophagus - Asthma Father - other (esophageal cancer) Father - Diabetes Brother - Alcohol/Drug Maternal Uncle - Alcohol/Drug Maternal Grandfather - Coronary Artery Disease Maternal Grandfather - Heart Maternal Grandfather - Alcohol/Drug Brother - Cancer Maternal Uncle throat - Coronary Artery Disease Maternal Aunt - Diabetes Maternal Grandmother - Diabetes Paternal Grandmother - Diabetes Maternal Aunt x2 - Heart Maternal Aunt x2 Social History Substance Use Topics - Smoking status: Never Smoker - Smokeless tobacco: Never Used Comment: Parents smoked in childhood. Spouse smokes. - Alcohol use No Past medical history, appointments, medications, allergies reviewed. Pertinent Lab/Diagnostic Studies are reviewed and discussed today Current Outpatient Prescriptions: - pregabalin (LYRICA) 25 mg capsule - levothyroxine (SYNTHROID) 75 mcg tablet - sertraline (ZOLOFT) 100 mg tablet - pantoprazole (PROTONIX) 40 mg grps - atorvastatin (LIPITOR) 20 mg tablet - predniSONE (DELTASONE) 10 mg tablet - Milnacipran (SAVELLA) 50 mg tab - meclizine (ANTIVERT) 12.5 mg tab - albuterol HFA (VENTOLIN HFA) 90 mcg/actuation inhaler - sucralfate (CARAFATE) 1 gram tablet - hydrOXYzine pamoate (VISTARIL) 25 mg capsule - fluticasone (FLONASE) 50 mcg/actuation nasal spray - fludrocortisone (FLORINEF) 0.1 mg tablet - esomeprazole (NEXIUM) 40 mg capsule - clopidogrel (PLAVIX) 75 mg tablet - guaiFENesin (MUCINEX) 1,200 mg Ta12 - aspirin 325 mg tablet - potassium chloride (K-TAB) 10 mEq tablet - MULTIVITAMIN TAB Review of Systems CONSTITUTIONAL: No fevers, chills night sweats, unintended weight loss CARDIOVASCULAR: No chest pain, dyspnea, palpitations, orthopnea, PND, ankle edema. PULM: No dyspnea, unexplained cough. GI: No dysphagia/odynophagia, problematic reflux, constipation, diarrhea, changes in stool habits, hematochezia, melena. : No new urinary complaints, including dysuria, gross hematuria or pyuria. NEURO: No new balance problems, peripheral weakness/paresthesias or numbness of concern. Physical Exam BP 164/100 (BP Site: Left Arm, BP Position: Sitting, BP Cuff Size: Large Adult) Pulse 99 Resp 12 Ht 182.9 cm (6') Wt 96.2 kg (212 lb) SpO2 96% BMI 28.75 kg/m? General appearance: Well appearing, alert, in no acute distress, well nourished. Skin: Skin color, texture, turgor normal, no suspicious rashes or lesions Head: Normocephalic, no masses, lesions, tenderness or abnormalities Eyes: Anicteric sclera. Pupils are equally round and reactive to light. Extraocular movements are intact. Lungs: Lungs clear to auscultation. No wheezing, rhonchi, rales Heart: RRR without murmur, gallop, or rubs. Extremities: No deformities, edema, skin discoloration, clubbing or cyanosis. Good capillary refill. ASSESSMENT/PLAN: 1. Gastroesophageal reflux disease without esophagitis - ICD9: 530.81, ICD10: K21.9 discussed that he can only take tylenol - PANTOPRAZOLE 20 MG TABLET,DELAYED RELEASE. 2. Essential hypertension - ICD9: 401.9, ICD10: I10 Not well controlled emotionally patient is not doing very well and that increased his bp he is also very sensitive to medication and bottoms out frequently, cardiology has been involved but we are not able to adequately control. - Recommended regular aerobic exercise. - Recommend home blood pressure monitoring, to bring results in on next visit - Goal of BP <130/80 3. Anxiety and depression - ICD9: 300.00, 311, ICD10: F41.9, F32.9 Asked him to take this on a daily basis - BUSPIRONE 5 MG TABLET 4. Recurrent major depressive disorder, in partial remission (HCC) - ICD9: 296.35, ICD10: F33.41 See hpi for depression triggers, current he is anxious and depressed 5. Chronic obstructive pulmonary disease, unspecified COPD type (HCC) - ICD9: 496, ICD10: J44.9 Patient has copd which is stable today LAURA GROVE MD CNOV Observed: 08/22/2018 Status: COMPLETED Source: [place] 10:20 AM [facility] REPOSITORY Office Visit (INTMWS) SHAYAN CULVER ([id number]) 1950 M Date Time Provider Department 08/22/18 10:20 AM LAURA GROVE INTMWS During your visit today, we recorded the following information about you: Pulse Respiration Blood pressure Weight 99/minute 12/minute 110/70 96.2 kg Height 1.829 m LAURA GROVE MD 08/26/2018 10:19 AM Signed Reason for Visit Patient presents with: Established Patient: 2 month follow up-HTN,dizzy,stomach bloated,right sided pain Shayan Culver is a 67 year old male who presents here today for Above Complaints. Health Maintenance DTAP,TDAP,TD(1 - Tdap) HEPATITIS C SCREENING PNEUMOVAX AGE 65 AND OVER WITH 5YR LOOKBACK(1) HPI Patient has been feeling poorly for the past few weeks. Complains of feeling sick in his stomach constantly for the past few days. 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 He has very labile blood pressures. Today he noted to me that his granddaughter is home with him, his DIL is being very difficult , grandchildren do not feel safe. He is very very worried about the whole situation. Son is upset as his has been cheating him for the past many years, and since his granddaughters are at home he is constantly reminded of the sad situation at home. All of the stress makes his bp high and with his carotid body disease he is not able to control his blood pressures and we have a hard time controlling his blood pressures Also today he notes His vertigo is out of control. He was not to take naproxen due to gi Issue but he has been taking it not realizing it.which I think is contributing to his gi issues. He was asked not to take any NSAIDS but he still takes them on a daily basis. He has bloating and indigestion, I think from the nsaids No problem-specific Assessment AND Plan notes found for this encounter. PAST MEDICAL HISTORY Diagnosis Date - BPH (benign prostatic hyperplasia) - CAD (coronary artery disease) - Carotid stenosis L>R - COPD (chronic obstructive pulmonary disease) ([facility]) - Essential hypertension, benign Labile hyper and hypotensive - GERD (gastroesophageal reflux disease) 2012 - History of gastric bypass - Hyperlipidemia - Hypothyroidism - Major depressive disorder, single episode, moderate (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) 02/2013 CABG x 4 - Orthostatic hypotension - Reflux esophagitis Confirmed by Ba swallow. - Seasonal allergies Dr. Espana. - Stroke (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 - Unspecified asthma(493.90) - Vertebral artery occlusion left - Vitamin D deficiency 2012 PAST SURGICAL HISTORY Procedure Laterality Date - APPENDECTOMY 1961 - CABG (4) VEIN GRAFTS AND ARTERIAL GRAFT(S) 02/26/13 - CAROTID STENT PLACEMENT-INTRAOP Right 12/06/2017 - COLONOSCOP W/ OR W/O BRSH SPEC 09/15/13 few diverticula - 10 year follow up - COLONOSCOPY several - EGD W/O BRSH SPECIMEN W/BX 09/15/13 gastritis, gastric band in place, thin PEG site - EGD W/O OR W/BRUSH/WASH 03/28/2010 EGD - EGD W/O OR W/BRUSH/WASH 05/07/2017 EGD - HEART CATHETERIZATION 09/01/14 diffuse disease, no revascularizable target - HEART SURGERY HX - KIDNEY SURGERY HX - PAST SURGICAL HISTORY OF ~1977 kidney stones - PAST SURGICAL HISTORY OF 1976 intestinal bypass - PAST SURGICAL HISTORY OF ~1977 partial intestinal bypass reversal - PAST SURGICAL HISTORY OF 1994 gastric banding - PAST SURGICAL HISTORY OF 01/18/2005 throat cancer - PAST SURGICAL HISTORY OF 11/08/2017 Lt carotid arteriogram with stenting - PEG TUBE 03/20/2005 removed after 1 1/2y - REMOVAL GALLBLADDER ~1977 - XRAY CHEST 1 VIEW 06/06/15 hyperinflation and scarring FAMILY HISTORY Problem Relation Age of Onset - Diabetes Mother - Coronary Artery Disease Mother - Psychiatry Mother depression - Cancer Mother lung - Cancer Father esophagus - Asthma Father - other (esophageal cancer) Father - Diabetes Brother - Alcohol/Drug Maternal Uncle - Alcohol/Drug Maternal Grandfather - Coronary Artery Disease Maternal Grandfather - Heart Maternal Grandfather - Alcohol/Drug Brother - Cancer Maternal Uncle throat - Coronary Artery Disease Maternal Aunt - Diabetes Maternal Grandmother - Diabetes Paternal Grandmother - Diabetes Maternal Aunt x2 - Heart Maternal Aunt x2 Social History Substance Use Topics - Smoking status: Never Smoker - Smokeless tobacco: Never Used Comment: Parents smoked in childhood. Spouse smokes. - Alcohol use No Past medical history, appointments, medications, allergies reviewed. Pertinent Lab/Diagnostic Studies are reviewed and discussed today Current Outpatient Prescriptions: - pregabalin (LYRICA) 25 mg capsule - levothyroxine (SYNTHROID) 75 mcg tablet - sertraline (ZOLOFT) 100 mg tablet - pantoprazole (PROTONIX) 40 mg grps - atorvastatin (LIPITOR) 20 mg tablet - predniSONE (DELTASONE) 10 mg tablet - Milnacipran (SAVELLA) 50 mg tab - meclizine (ANTIVERT) 12.5 mg tab - albuterol HFA (VENTOLIN HFA) 90 mcg/actuation inhaler - sucralfate (CARAFATE) 1 gram tablet - hydrOXYzine pamoate (VISTARIL) 25 mg capsule - fluticasone (FLONASE) 50 mcg/actuation nasal spray - fludrocortisone (FLORINEF) 0.1 mg tablet - esomeprazole (NEXIUM) 40 mg capsule - clopidogrel (PLAVIX) 75 mg tablet - guaiFENesin (MUCINEX) 1,200 mg Ta12 - aspirin 325 mg tablet - potassium chloride (K-TAB) 10 mEq tablet - MULTIVITAMIN TAB Review of Systems CONSTITUTIONAL: No fevers, chills night sweats, unintended weight loss CARDIOVASCULAR: No chest pain, dyspnea, palpitations, orthopnea, PND, ankle edema. PULM: No dyspnea, unexplained cough. GI: No dysphagia/odynophagia, problematic reflux, constipation, diarrhea, changes in stool habits, hematochezia, melena. : No new urinary complaints, including dysuria, gross hematuria or pyuria. NEURO: No new balance problems, peripheral weakness/paresthesias or numbness of concern. Physical Exam BP 164/100 (BP Site: Left Arm, BP Position: Sitting, BP Cuff Size: Large Adult) Pulse 99 Resp 12 Ht 182.9 cm (6') Wt 96.2 kg (212 lb) SpO2 96% BMI 28.75 kg/m? General appearance: Well appearing, alert, in no acute distress, well nourished. Skin: Skin color, texture, turgor normal, no suspicious rashes or lesions Head: Normocephalic, no masses, lesions, tenderness or abnormalities Eyes: Anicteric sclera. Pupils are equally round and reactive to light. Extraocular movements are intact. Lungs: Lungs clear to auscultation. No wheezing, rhonchi, rales Heart: RRR without murmur, gallop, or rubs. Extremities: No deformities, edema, skin discoloration, clubbing or cyanosis. Good capillary refill. ASSESSMENT/PLAN: 1. Gastroesophageal reflux disease without esophagitis - ICD9: 530.81, ICD10: K21.9 discussed that he can only take tylenol - PANTOPRAZOLE 20 MG TABLET,DELAYED RELEASE. 2. Essential hypertension - ICD9: 401.9, ICD10: I10 Not well controlled emotionally patient is not doing very well and that increased his bp he is also very sensitive to medication and bottoms out frequently, cardiology has been involved but we are not able to adequately control. - Recommended regular aerobic exercise. - Recommend home blood pressure monitoring, to bring results in on next visit - Goal of BP <130/80 3. Anxiety and depression - ICD9: 300.00, 311, ICD10: F41.9, F32.9 Asked him to take this on a daily basis - BUSPIRONE 5 MG TABLET 4. Recurrent major depressive disorder, in partial remission (HCC) - ICD9: 296.35, ICD10: F33.41 See hpi for depression triggers, current he is anxious and depressed 5. Chronic obstructive pulmonary disease, unspecified COPD type (HCC) - ICD9: 496, ICD10: J44.9 Patient has copd which is stable today LAURA GROVE MD Referring Provider: LAURA GROVE [[id number]] Allergies As of Date: 08/22/2018 Noted Allergy Reaction FLOXIN (OFLOXACIN) 10/09/2005 1 - Mental Status Change Comments: Severe depression. FLAGYL (METRONIDAZOLE HCL) 01/15/2005 1 - Mental Status Change Comments: Depression. CIPROFLOXACIN 02/16/2013 6 - Diarrhea 16 - Unknown Comments: ? diarrhea. MORPHINE 12/28/2016 1 - Mental Status Change Date Reviewed: 08/22/2018 Reviewed by: Kamila Casas LPN - Fully Assessed Reason for Visit: Established Patient [175] Cmt: 2 month follow up-HTN,dizzy,stomach bloated,right sided pain Primary Visit Diagnosis:Gastroesophageal reflux disease without esophagitis [K21.9] Other Visit Diagnoses:Essential hypertension [I10] Anxiety and depression [F41.9, F32.9] Recurrent major depressive disorder, in partial remission (HCC) [F33.41] Chronic obstructive pulmonary disease, unspecified COPD type (HCC) [J44.9] Order(s):pantoprazole DR (PROTONIX) 20 mg tabletTake 1 tablet by mouth twice daily. Take on empty stomach, 1/2 hr before meal.Disp: 60 tabletRfl: 2 busPIRone (BUSPAR) 5 mg tabletTake 1 tablet by mouth three times daily.Disp: 90 tabletRfl: 0 Prescriptions as of 08/22/2018 Sig: PANTOPRAZOLE 20 MG TABLET,DEL* Take 1 tablet by mouth twice * BUSPIRONE 5 MG TABLET Take 1 tablet by mouth three * PREGABALIN 25 MG CAPSULE Take 1 capsule by mouth twice* Patient not taking: Reported on 08/03/2018 LEVOTHYROXINE 75 MCG TABLET TAKE ONE TABLET BY MOUTH ONCE* SERTRALINE 100 MG TABLET TAKE ONE-HALF TABLET BY MOUTH* ATORVASTATIN 20 MG TABLET Take 1 tablet by mouth once d* PREDNISONE 10 MG TABLET Take 1 tablet by mouth once d* MECLIZINE 12.5 MG TABLET TAKE ONE TABLET BY MOUTH TWIC* ALBUTEROL SULFATE HFA 90 MCG/* Inhale 2 Puffs as instructed * SUCRALFATE 1 GRAM TABLET Take 1 tablet by mouth three * HYDROXYZINE PAMOATE 25 MG CAP* Take 1 capsule by mouth three* FLUTICASONE 50 MCG/ACTUATION * Use 2 Sprays in each nostril * FLUDROCORTISONE 0.1 MG TABLET Take 1 tablet by mouth twice * ESOMEPRAZOLE MAGNESIUM 40 MG * Take 1 capsule by mouth daily* CLOPIDOGREL 75 MG TABLET Take 1 tablet by mouth once d* GUAIFENESIN ER 1,200 MG TABLE* Take 1 tablet by mouth once d* ASPIRIN 325 MG TABLET Take 81 mg by mouth once genaro* POTASSIUM CHLORIDE ER 10 MEQ * Take 1 tablet by mouth daily * MULTIVITAMIN TABLET Take one(1) tablet daily. Problem List As Of Date 08/22/2018 Noted Resolved MALIGNANT NEOPL TONSIL [C09.9] INVALID FOR* DIZZINESS AND GIDDINESS [R42] INVALID FOR* More... 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 Depression [F32.9] INVALID FOR* More... GERD (gastroesophageal reflux disease) [K21.9] INVALID FOR* More... Vitamin d deficiency [E55.9] Hyperlipidemia [E78.5] More... Hearing loss [H91.90] INVALID FOR* BPPV (benign paroxysmal positional vertigo) [H8*INVALID FOR* Tonsillar cancer [C09.9] INVALID FOR* CAD (coronary artery disease) [I25.10] More... Carotid artery stenosis, symptomatic [I65.29] More... Encounter for screening colonoscopy [Z12.11] INVALID FOR* Diverticula of colon [K57.30] INVALID FOR* Gastritis [K29.70] INVALID FOR* Irritation around percutaneous endoscopic gastr*INVALID FOR* Essential hypertension, benign [I10] More... Labile blood pressure [R09.89] INVALID FOR* Other pain disorders related to psychological f*INVALID FOR* Adjustment disorder with mixed anxiety and depr*INVALID FOR* Asthma, moderate persistent, poorly-controlled * Arthritis [M19.90] INVALID FOR* More... Orthostatic hypotension [I95.1] INVALID FOR* More... COPD with chronic bronchitis (HCC) [J44.9] INVALID FOR* More... Hypertension [I10] INVALID FOR* More... Environmental allergies [Z91.09] INVALID FOR* More... Complication of gastrostomy tube (HCC) [K94.20] INVALID FOR* Reflux esophagitis [K21.0] More... Essential hypertension [I10] INVALID FOR* Internal carotid artery stenosis, bilateral [I6*INVALID FOR* Malnutrition of mild degree (HCC) [E44.1] INVALID FOR* History of common carotid artery stent placemen*INVALID FOR* History of carotid stenosis [Z86.79] INVALID FOR* Prescriptions ordered this encounter Disp Refills Start End PANTOPRAZOLE 20 MG TABLET,DELAYED RE* 60 t* 2 08/22/2018 Route: ORAL Sig: Take 1 tablet by mouth twice daily. Take on empty stomach, 1/2 hr before meal. BUSPIRONE 5 MG TABLET 90 t* 0 08/22/2018 Route: ORAL Sig: Take 1 tablet by mouth three times daily. Medications Discontinued During This Encounter pantoprazole (PROTONIX) 40 mg grps 60 P* 2 06/20/2018 08/22/2018 Route: ORAL Sig: Take 1 Packet by mouth DAILY (6 AM). Disc: Reason for discontinue is not on file. Milnacipran (SAVELLA) 50 mg tab 60 t* 2 06/20/2018 08/22/2018 Class: Print RX Route: ORAL Sig: Take 1 tablet by mouth twice daily. 12.5 mg once on day 1, then 12.5 mg twice daily on days 2 to 3, 25 mg twice daily on days 4 to 7, then 50 mg twice daily thereafter Patient not taking: Reported on 07/03/2018 Disc: Reason for discontinue is not on file. Encounter Status:Closed by LAURA GROVE MD on 08/26/18 CBC W/DIFF, AUTOMATED Collected: 08/21/2018 Status: F Source: [place] 12:32 PM [facility] REPOSITORY TYPE CODE TESTS RESULT OUT OF RANGE REFERENCE UNITS LAB L100.1000 4.4-11.0 K/mm3 High WBC 12.6 LAB L100.1200 4.6-6.2 M/mm3 Low RBC 4.44 LAB L100.1300 13.0-16.5 g/dl Normal HGB 14.4 LAB L100.1400 40-54 % Normal HCT 45.0 LAB L100.1500 80-94 fL High MCV 101.4 LAB L100.1600 27.0-32.0 pg High MCH 32.4 LAB L100.1700 32-36 g/gl Normal MCHC 32.0 LAB L100.1810 11.6-14.6 % High RDW CV 15.0 LAB L100.1820 35.1-43.9 fl High RDW SD 56.2 LAB L100.1900 150-450 K/mm3 Normal PLT 182 LAB L100.2000 6.2-12.0 fl Normal MPV 10.3 LAB L100.2100 47-70 % High NEUT% 87.9 LAB L100.2200 19-41 % Low LY% 5.6 LAB L100.2300 0-10 % Normal MONO% 5.6 LAB L100.2400 0-5 % Normal EO% 0.1 LAB L100.2500 0-1 % Normal BASO% 0.2 LAB L100.2550 0.0-0.9 % Normal IM GRAN % 0.600 Result Comment: IG% - Immature Granulocytes (promyelocytes, myelocytes and metamyelocytes) > 1% indicates that a LEFT SHIFT is Present. LAB L100.2620 2.0-7.7 X10 3/uL High Absolute Neut 11.1 LAB L100.2720 0.83-4.51 X10 3/ul Low Absolute Lymph 0.71 Performed By: #### L100.0100 #### [facility] [address] [place] [address]. [place], [address] BASIC METABOLIC Collected: 08/21/2018 Status: F Source: [place] PROFILE (BMP) 12:32 PM [facility] REPOSITORY TYPE CODE TESTS RESULT OUT OF RANGE REFERENCE UNITS LAB L501.0100 74-106 mg/dL Normal GLU 105 Result Comment: Fasting Glucose result from 100 to 125 mg/dL suggests IMPAIRED HOMEOSTASIS per A.D.A. criteria. Please note revised GLUCOSE reference range effective 2017. LAB L501.1000 7-18 mg/dL Normal BUN 18 LAB L501.1100 0.70-1.30 mg/dL Normal CREAT,SERUM 1.19 Result Comment: The validity of the calculated GFR AND GFRAA in patients over 70 years has not been determined. Clinical correlation is essential. LAB L501.1110 >60 mL/min Normal EST GFR 65 Result Comment: Non- GFR Calc LAB L501.1115 >60 mL/min Normal EST GFR - AA 79 Result Comment: GFR Calc LAB L501.1300 10-20 RATIO Normal BUN/CRE 15.1 LAB L501.2200 8.5-10.1 mg/dL CA Normal 9.1 LAB L501.5300 136-145 mmol/L NA Normal 142 LAB L501.5600 3.5-5.1 mmol/L K Normal 4.3 Result Comment: Slight Hemolysis, Result may be falsely increased. LAB L501.5900 98-107 mmol/L High CL 109 LAB L501.6100 21.0-32.0 mmol/L Normal CO2 25.0 LAB L501.6200 5-15 Normal 8 GAP Performed By: #### L500.2500 #### [facility] [address] [place], [address] BNP,B-TYPE NATRIURETIC Collected: 08/21/2018 Status: F Source: [place] 12:32 PM [facility] REPOSITORY TYPE CODE TESTS RESULT OUT OF RANGE REFERENCE UNITS LAB L503.6620 0-100 pg/mL High B-TYPE 146.5 KENNETH PEP Performed By: #### L503.6620 #### [facility] [address] [place], [address] CHEST PA AND LATERAL Observed: 08/21/2018 Status: F Source: [place] 12:17 PM [facility] REPOSITORY [facility] Imaging Services [address] [place] [address] Chest PA and Lateral MR#: [id number] Acct: [id number] Name: SHAYAN CULVER Rep #: [id number] : 1950 M 67 From: Mckay Blackwood MD PCP: Laura Grove MD Status: REG CLI Study: Chest PA and Lateral Date of Exam: 08/21/18 Exam# [id number] Ordering Dr: Jacob Freitas FLIGHT ATTENDANT-C STUDY: X-RAY CHEST REASON FOR EXAM: Male, 67 years old. Shortness of breath/dyspnea. Chest pain. Persistent cough. TECHNIQUE: PA and lateral views of the chest. COMPARISON: Comparison is made with prior study dated April 23, 2017. FINDINGS: Hyperinflation. Surgical clips are seen in the right cervical region. Mild degree of persistent increased markings in the lingular segment of the left upper lobe suggestive of scarring. There is no demonstrated pleural abnormality. Sternal cerclage wires and vascular clips are present from a prior sternotomy and coronary artery bypass graft procedure (CABG). Normal mediastinum and becca. Normal visualized pulmonary arteries. There is atherosclerotic tortuosity of the aortic arch and descending thoracic aorta. There are degenerative changes of the visualized thoracic spine. Normal visualized ribs, clavicles, and shoulders. Surgical clips are seen in the epigastric region as well as in the right upper quadrant. RAD/Chest PA and Lateral IMPRESSION: Stable mild degree of increased markings in the lingular segment left upper lobe suggestive of scarring. Electronically Signed: Mckay Blackwood MD at 10:18 EST Tel [phone], Service support , CC: MUKESH Freitas; Laura Grove MD Whip Operator: Signed CNCO Observed: 08/04/2018 Status: COMPLETED Source: [place] 12:00 AM [facility] REPOSITORY Letter Text [place] [facility] [address] [place], [place] [address] 08/04/2018 Shayan Culver [id number] [address] [facility] [address] Dear Mr. Culvre: I noted on my schedule today that we had an appointment. I am sorry I missed you. I realize that there are many distractions and busy schedules. Please call ahead of time, if you are unable to make it. If this was because of a miscommunication, please ensure that you speak with one of the schedulers over the phone/in person after each appointment (this is the safest way, since we can't guarantee that you will receive your appointments via mail). If you need to cancel, please call us in advance. Thanks for your understanding, and hope to see you again soon. Sincerely, Dr. Macario Alberto MD PROGRESS Observed: 08/03/2018 Status: COMPLETED Source: [place] 1:16 PM [facility] [place] REPOSITORY HNO ID: [id number] Author: Ken (Clara) Service: (none) Author Type: Nurse Practitioner Type: Progress Notes Filed: 08/03/2018 2:36 PM Note Text: Subjective HPI HPI Shayan Culver is a 67 year old male who presents today for CC of cough, chest pain, weakness. This started 2 weeks ago. Has tried otc medication and albuterol. Symptoms are worsened by nothing. Risk factors hx of CAD, GA, CHF, COPD. .Patient presents with: Chest Congestion: cough and fatigue x 2 weeks PAST MEDICAL HISTORY Diagnosis Date - BPH (benign prostatic hyperplasia) - CAD (coronary artery disease) - Carotid stenosis L>R - COPD (chronic obstructive pulmonary disease) ([facility]) - Essential hypertension, benign Labile hyper and hypotensive - GERD (gastroesophageal reflux disease) 2012 - History of gastric bypass - Hyperlipidemia - Hypothyroidism - Major depressive disorder, single episode, moderate (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) 02/2013 CABG x 4 - Orthostatic hypotension - Reflux esophagitis Confirmed by Ba swallow. - Seasonal allergies Dr. Espana. - Stroke (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 - Unspecified asthma(493.90) - Vertebral artery occlusion left - Vitamin D deficiency 2012 PAST SURGICAL HISTORY Procedure Laterality Date - APPENDECTOMY 1961 - CABG (4) VEIN GRAFTS AND ARTERIAL GRAFT(S) 02/26/13 - CAROTID STENT PLACEMENT-INTRAOP Right 12/06/2017 - COLONOSCOP W/ OR W/O BRSH SPEC 09/15/13 few diverticula - 10 year follow up - COLONOSCOPY several - EGD W/O BRSH SPECIMEN W/BX 09/15/13 gastritis, gastric band in place, thin PEG site - EGD W/O OR W/BRUSH/WASH 03/28/2010 EGD - EGD W/O OR W/BRUSH/WASH 05/07/2017 EGD - HEART CATHETERIZATION 09/01/14 diffuse disease, no revascularizable target - HEART SURGERY HX - KIDNEY SURGERY HX - PAST SURGICAL HISTORY OF ~1977 kidney stones - PAST SURGICAL HISTORY OF 1976 intestinal bypass - PAST SURGICAL HISTORY OF ~1977 partial intestinal bypass reversal - PAST SURGICAL HISTORY OF 1994 gastric banding - PAST SURGICAL HISTORY OF 01/18/2005 throat cancer - PAST SURGICAL HISTORY OF 11/08/2017 Lt carotid arteriogram with stenting - PEG TUBE 03/20/2005 removed after 1 12y - REMOVAL GALLBLADDER ~1977 - XRAY CHEST 1 VIEW 06/06/15 hyperinflation and scarring ALLERGIES Floxin [Ofloxacin]; Flagyl [Metronidazole Hcl]; Ciprofloxacin; Morphine MEDICATIONS albuterol HFA (VENTOLIN HFA) 90 mcg/actuation inhaler Inhale 2 Puffs as instructed every 4 hours as needed for Wheezing/Shortness of Breath. aspirin 325 mg tablet Take 81 mg by mouth once daily. atorvastatin (LIPITOR) 20 mg tablet Take 1 tablet by mouth once daily. clopidogrel (PLAVIX) 75 mg tablet Take 1 tablet by mouth once daily. esomeprazole (NEXIUM) 40 mg capsule Take 1 capsule by mouth daily before breakfast. 1/2 hr before meal. fludrocortisone (FLORINEF) 0.1 mg tablet Take 1 tablet by mouth twice daily. Prescribed by cardiology. fluticasone (FLONASE) 50 mcg/actuation nasal spray Use 2 Sprays in each nostril once daily. Rinse mouth after use. guaiFENesin (MUCINEX) 1,200 mg Ta12 Take 1 tablet by mouth once daily. hydrOXYzine pamoate (VISTARIL) 25 mg capsule Take 1 capsule by mouth three times daily as needed. levothyroxine (SYNTHROID) 75 mcg tablet TAKE ONE TABLET BY MOUTH ONCE DAILY meclizine (ANTIVERT) 12.5 mg tab TAKE ONE TABLET BY MOUTH TWICE DAILY MULTIVITAMIN TAB Take one(1) tablet daily. pantoprazole (PROTONIX) 40 mg grps Take 1 Packet by mouth DAILY (6 AM). potassium chloride (K-TAB) 10 mEq tablet Take 1 tablet by mouth daily with breakfast. predniSONE (DELTASONE) 10 mg tablet Take 1 tablet by mouth once daily. sertraline (ZOLOFT) 100 mg tablet TAKE ONE-HALF TABLET BY MOUTH TWICE DAILY sucralfate (CARAFATE) 1 gram tablet Take 1 tablet by mouth three times daily before meals. Milnacipran (SAVELLA) 50 mg tab Take 1 tablet by mouth twice daily. 12.5 mg once on day 1, then 12.5 mg twice daily on days 2 to 3, 25 mg twice daily on days 4 to 7, then 50 mg twice daily thereafter pregabalin (LYRICA) 25 mg capsule Take 1 capsule by mouth twice daily for 30 days. FAMILY HISTORY Problem Relation Age of Onset - Diabetes Mother - Coronary Artery Disease Mother - Psychiatry Mother depression - Cancer Mother lung - Cancer Father esophagus - Asthma Father - other (esophageal cancer) Father - Diabetes Brother - Alcohol/Drug Maternal Uncle - Alcohol/Drug Maternal Grandfather - Coronary Artery Disease Maternal Grandfather - Heart Maternal Grandfather - Alcohol/Drug Brother - Cancer Maternal Uncle throat - Coronary Artery Disease Maternal Aunt - Diabetes Maternal Grandmother - Diabetes Paternal Grandmother - Diabetes Maternal Aunt x2 - Heart Maternal Aunt x2 Social History Substance Use Topics - Smoking status: Never Smoker - Smokeless tobacco: Never Used Comment: Parents smoked in childhood. Spouse smokes. - Alcohol use No Review of Systems Constitutional: Negative for chills, fever and weight loss. HENT: Positive for congestion. Negative for ear pain, nosebleeds and sore throat. Respiratory: Positive for cough and shortness of breath. Negative for wheezing. Cardiovascular: Positive for chest pain. Musculoskeletal: Negative for neck pain. Objective Blood pressure 128/76, pulse 82, temperature 36.1 ?C (96.9 ?F), temperature source Tympanic, resp. rate 16, weight 93.9 kg (207 lb), SpO2 95 %. Component Latest Ref Rng AND Units 01/31/2018 Glucose 74 - 99 mg/dL 94 BUN 9 - 24 mg/dL 21 Creatinine 0.73 - 1.22 mg/dL 1.26 (H) Sodium 136 - 144 mmol/L 138 Potassium 3.7 - 5.1 mmol/L 4.4 Chloride 97 - 105 mmol/L 102 CO2 22 - 30 mmol/L 21 (L) Anion Gap 9 - 18 mmol/L 15 Calcium 8.5 - 10.2 mg/dL 9.9 eGFR- >60 eGFR-All Other Races . 57 Physical Exam Constitutional: He is oriented to person, place, and time and well-developed, well-nourished, and in no distress. Non-toxic appearance. He does not have a sickly appearance. No distress. HENT: Head: Normocephalic and atraumatic. Cardiovascular: Normal rate, regular rhythm, S1 normal, S2 normal and normal heart sounds. Pulmonary/Chest: Effort normal. He has wheezes (scattered). He has rhonchi (scattered). Neurological: He is alert and oriented to person, place, and time. Gait normal. Skin: He is not diaphoretic. ASSESSMENT/PLAN: 1. Chest pain, unspecified type - ICD9: 786.50, ICD10: R07.9 -concerns for cardiac involvement, I recommend ER evaluation -report called to [facility] ER - to drive pov to ER Patient declined squad Ken Varela APRN.CNP CNOV Observed: 08/03/2018 Status: COMPLETED Source: [place] 1:00 PM [facility] REPOSITORY Office Visit (WSTR) SHAYAN CULVER Queenie ([id number]) 1950 M Date Time Provider Department 08/03/18 1:00 PM [facility] During your visit today, we recorded the following information about you: Temperature Pulse Respiration Blood pressure 96.9 degrees 82/minute 16/minute 128/76 Weight 93.9 kg Ken Varela APRN.CNP 08/03/2018 2:36 PM Signed Subjective HPI HPI Shayan Culver is a 67 year old male who presents today for CC of cough, chest pain, weakness. This started 2 weeks ago. Has tried otc medication and albuterol. Symptoms are worsened by nothing. Risk factors hx of CAD, GA, CHF, COPD. .Patient presents with: Chest Congestion: cough and fatigue x 2 weeks PAST MEDICAL HISTORY Diagnosis Date - BPH (benign prostatic hyperplasia) - CAD (coronary artery disease) - Carotid stenosis L>R - COPD (chronic obstructive pulmonary disease) ([facility]) - Essential hypertension, benign Labile hyper and hypotensive - GERD (gastroesophageal reflux disease) 2012 - History of gastric bypass - Hyperlipidemia - Hypothyroidism - Major depressive disorder, single episode, moderate (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) 02/2013 CABG x 4 - Orthostatic hypotension - Reflux esophagitis Confirmed by Ba swallow. - Seasonal allergies Dr. Espana. - Stroke (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 - Unspecified asthma(493.90) - Vertebral artery occlusion left - Vitamin D deficiency 2012 PAST SURGICAL HISTORY Procedure Laterality Date - APPENDECTOMY 1961 - CABG (4) VEIN GRAFTS AND ARTERIAL GRAFT(S) 02/26/13 - CAROTID STENT PLACEMENT-INTRAOP Right 12/06/2017 - COLONOSCOP W/ OR W/O BRSH SPEC 09/15/13 few diverticula - 10 year follow up - COLONOSCOPY several - EGD W/O BRSH SPECIMEN W/BX 09/15/13 gastritis, gastric band in place, thin PEG site - EGD W/O OR W/BRUSH/WASH 03/28/2010 EGD - EGD W/O OR W/BRUSH/WASH 05/07/2017 EGD - HEART CATHETERIZATION 09/01/14 diffuse disease, no revascularizable target - HEART SURGERY HX - KIDNEY SURGERY HX - PAST SURGICAL HISTORY OF ~1977 kidney stones - PAST SURGICAL HISTORY OF 1976 intestinal bypass - PAST SURGICAL HISTORY OF ~1977 partial intestinal bypass reversal - PAST SURGICAL HISTORY OF 1994 gastric banding - PAST SURGICAL HISTORY OF 01/18/2005 throat cancer - PAST SURGICAL HISTORY OF 11/08/2017 Lt carotid arteriogram with stenting - PEG TUBE 03/20/2005 removed after 1 1/2y - REMOVAL GALLBLADDER ~1977 - XRAY CHEST 1 VIEW 06/06/15 hyperinflation and scarring ALLERGIES Floxin [Ofloxacin]; Flagyl [Metronidazole Hcl]; Ciprofloxacin; Morphine MEDICATIONS albuterol HFA (VENTOLIN HFA) 90 mcg/actuation inhaler Inhale 2 Puffs as instructed every 4 hours as needed for Wheezing/Shortness of Breath. aspirin 325 mg tablet Take 81 mg by mouth once daily. atorvastatin (LIPITOR) 20 mg tablet Take 1 tablet by mouth once daily. clopidogrel (PLAVIX) 75 mg tablet Take 1 tablet by mouth once daily. esomeprazole (NEXIUM) 40 mg capsule Take 1 capsule by mouth daily before breakfast. 1/2 hr before meal. fludrocortisone (FLORINEF) 0.1 mg tablet Take 1 tablet by mouth twice daily. Prescribed by cardiology. fluticasone (FLONASE) 50 mcg/actuation nasal spray Use 2 Sprays in each nostril once daily. Rinse mouth after use. guaiFENesin (MUCINEX) 1,200 mg Ta12 Take 1 tablet by mouth once daily. hydrOXYzine pamoate (VISTARIL) 25 mg capsule Take 1 capsule by mouth three times daily as needed. levothyroxine (SYNTHROID) 75 mcg tablet TAKE ONE TABLET BY MOUTH ONCE DAILY meclizine (ANTIVERT) 12.5 mg tab TAKE ONE TABLET BY MOUTH TWICE DAILY MULTIVITAMIN TAB Take one(1) tablet daily. pantoprazole (PROTONIX) 40 mg grps Take 1 Packet by mouth DAILY (6 AM). potassium chloride (K-TAB) 10 mEq tablet Take 1 tablet by mouth daily with breakfast. predniSONE (DELTASONE) 10 mg tablet Take 1 tablet by mouth once daily. sertraline (ZOLOFT) 100 mg tablet TAKE ONE-HALF TABLET BY MOUTH TWICE DAILY sucralfate (CARAFATE) 1 gram tablet Take 1 tablet by mouth three times daily before meals. Milnacipran (SAVELLA) 50 mg tab Take 1 tablet by mouth twice daily. 12.5 mg once on day 1, then 12.5 mg twice daily on days 2 to 3, 25 mg twice daily on days 4 to 7, then 50 mg twice daily thereafter pregabalin (LYRICA) 25 mg capsule Take 1 capsule by mouth twice daily for 30 days. FAMILY HISTORY Problem Relation Age of Onset - Diabetes Mother - Coronary Artery Disease Mother - Psychiatry Mother depression - Cancer Mother lung - Cancer Father esophagus - Asthma Father - other (esophageal cancer) Father - Diabetes Brother - Alcohol/Drug Maternal Uncle - Alcohol/Drug Maternal Grandfather - Coronary Artery Disease Maternal Grandfather - Heart Maternal Grandfather - Alcohol/Drug Brother - Cancer Maternal Uncle throat - Coronary Artery Disease Maternal Aunt - Diabetes Maternal Grandmother - Diabetes Paternal Grandmother - Diabetes Maternal Aunt x2 - Heart Maternal Aunt x2 Social History Substance Use Topics - Smoking status: Never Smoker - Smokeless tobacco: Never Used Comment: Parents smoked in childhood. Spouse smokes. - Alcohol use No Review of Systems Constitutional: Negative for chills, fever and weight loss. HENT: Positive for congestion. Negative for ear pain, nosebleeds and sore throat. Respiratory: Positive for cough and shortness of breath. Negative for wheezing. Cardiovascular: Positive for chest pain. Musculoskeletal: Negative for neck pain. Objective Blood pressure 128/76, pulse 82, temperature 36.1 ?C (96.9 ?F), temperature source Tympanic, resp. rate 16, weight 93.9 kg (207 lb), SpO2 95 %. Component Latest Ref Rng AND Units 01/31/2018 Glucose 74 - 99 mg/dL 94 BUN 9 - 24 mg/dL 21 Creatinine 0.73 - 1.22 mg/dL 1.26 (H) Sodium 136 - 144 mmol/L 138 Potassium 3.7 - 5.1 mmol/L 4.4 Chloride 97 - 105 mmol/L 102 CO2 22 - 30 mmol/L 21 (L) Anion Gap 9 - 18 mmol/L 15 Calcium 8.5 - 10.2 mg/dL 9.9 eGFR- >60 eGFR-All Other Races . 57 Physical Exam Constitutional: He is oriented to person, place, and time and well-developed, well-nourished, and in no distress. Non-toxic appearance. He does not have a sickly appearance. No distress. HENT: Head: Normocephalic and atraumatic. Cardiovascular: Normal rate, regular rhythm, S1 normal, S2 normal and normal heart sounds. Pulmonary/Chest: Effort normal. He has wheezes (scattered). He has rhonchi (scattered). Neurological: He is alert and oriented to person, place, and time. Gait normal. Skin: He is not diaphoretic. ASSESSMENT/PLAN: 1. Chest pain, unspecified type - ICD9: 786.50, ICD10: R07.9 -concerns for cardiac involvement, I recommend ER evaluation -report called to [facility] ER - to drive pov to ER Patient declined squad Ken Varela APRN.[id number] M60 [employer] Referring Provider: SELF [[id number]] Allergies As of Date: 08/03/2018 Noted Allergy Reaction FLOXIN (OFLOXACIN) 10/09/2005 1 - Mental Status Change Comments: Severe depression. FLAGYL (METRONIDAZOLE HCL) 01/15/2005 1 - Mental Status Change Comments: Depression. CIPROFLOXACIN 02/16/2013 6 - Diarrhea 16 - Unknown Comments: ? diarrhea. MORPHINE 12/28/2016 1 - Mental Status Change Date Reviewed: 08/03/2018 Reviewed by: Ken Varela - Fully Assessed Reason for Visit: Chest Congestion [236] Cmt: cough and fatigue x 2 weeks Primary Visit Diagnosis:Chest pain, unspecified type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 avoid all NSAIDs except ASA going forward - Routine follow up as scheduled 3. Reactive depression - ICD9: 300.4, ICD10: F32.9 - Improved - Continue Zoloft at 100mg daily - Discontinue Wellbutrin d/t intolerance - Okay to begin Vistaril PRN as discussed at previous visit - Routine follow up as scheduled, sooner for new or worsening symptoms Jeremias Burns APRN.[id number] M60 [employer] May 13, 2018 10:52 AM Referring Provider: LAURA GROVE [[id number]] Allergies As of Date: 05/13/2018 Noted Allergy Reaction FLOXIN (OFLOXACIN) 10/09/2005 1 - Mental Status Change Comments: Severe depression. FLAGYL (METRONIDAZOLE HCL) 01/15/2005 1 - Mental Status Change Comments: Depression. CIPROFLOXACIN 02/16/2013 6 - Diarrhea 16 - Unknown Comments: ? diarrhea. MORPHINE 12/28/2016 1 - Mental Status Change Date Reviewed: 04/17/2018 Reviewed by: Jeremias Starkey LPN - Fully Assessed Primary Visit Diagnosis:Hospital discharge follow-up [Z09] Other Visit Diagnoses:GI bleed due to NSAIDs [K92.2, T39.395A] Reactive depression [F32.9] Order(s):albuterol HFA (VENTOLIN HFA) 90 mcg/actuation inhalerInhale 2 Puffs as instructed every 4 hours as needed for Wheezing/Shortness of Breath.Disp: 1 InhalerRfl: 5 atorvastatin (LIPITOR) 20 mg tabletTake 1 tablet by mouth once daily.Disp: 90 tabletRfl: 3 sucralfate (CARAFATE) 1 gram tabletTake 1 tablet by mouth three times daily before meals.Disp: 90 tabletRfl: 1 Prescriptions as of 05/13/2018 Sig: PANTOPRAZOLE 40 MG GRANULES F* Take 40 mg by mouth DAILY (6 * PREDNISONE 5 MG TABLET,DELAYE* Take 5 mg by mouth twice genaro* ALBUTEROL SULFATE HFA 90 MCG/* Inhale 2 Puffs as instructed * ATORVASTATIN 20 MG TABLET Take 1 tablet by mouth once d* SUCRALFATE 1 GRAM TABLET Take 1 tablet by mouth three * HYDROXYZINE PAMOATE 25 MG CAP* Take 1 capsule by mouth three* PREDNISONE 10 MG TABLET Take 40 mg x 3 days, 20 mg x * FLUTICASONE 50 MCG/ACTUATION * Use 2 Sprays in each nostril * FLUDROCORTISONE 0.1 MG TABLET Take 1 tablet by mouth twice * ESOMEPRAZOLE MAGNESIUM 40 MG * Take 1 capsule by mouth daily* CLOPIDOGREL 75 MG TABLET Take 1 tablet by mouth once d* GUAIFENESIN ER 1,200 MG TABLE* Take 1 tablet by mouth once d* MECLIZINE 12.5 MG TABLET Take 1 tablet by mouth twice * LEVOTHYROXINE 75 MCG TABLET Take 1 tablet by mouth once d* SERTRALINE 100 MG TABLET Take 0.5 tablets by mouth twi* ASPIRIN 325 MG TABLET Take 81 mg by mouth once genaro* POTASSIUM CHLORIDE ER 10 MEQ * Take 1 tablet by mouth daily * MULTIVITAMIN TABLET Take one(1) tablet daily. Problem List As Of Date 05/13/2018 Noted Resolved MALIGNANT NEOPL TONSIL [C09.9] INVALID FOR* DIZZINESS AND GIDDINESS [R42] INVALID FOR* More... 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 Depression [F32.9] INVALID FOR* More... GERD (gastroesophageal reflux disease) [K21.9] INVALID FOR* More... Vitamin d deficiency [E55.9] Hyperlipidemia [E78.5] More... Hearing loss [H91.90] INVALID FOR* BPPV (benign paroxysmal positional vertigo) [H8*INVALID FOR* Tonsillar cancer [C09.9] INVALID FOR* CAD (coronary artery disease) [I25.10] More... Carotid artery stenosis, symptomatic [I65.29] More... Encounter for screening colonoscopy [Z12.11] INVALID FOR* Diverticula of colon [K57.30] INVALID FOR* Gastritis [K29.70] INVALID FOR* Irritation around percutaneous endoscopic gastr*INVALID FOR* Essential hypertension, benign [I10] More... Labile blood pressure [R09.89] INVALID FOR* Other pain disorders related to psychological f*INVALID FOR* Adjustment disorder with mixed anxiety and depr*INVALID FOR* Asthma, moderate persistent, poorly-controlled * Arthritis [M19.90] INVALID FOR* More... Orthostatic hypotension [I95.1] INVALID FOR* More... COPD with chronic bronchitis (HCC) [J44.9] INVALID FOR* More... Hypertension [I10] INVALID FOR* More... Environmental allergies [Z91.09] INVALID FOR* More... Complication of gastrostomy tube (HCC) [K94.20] INVALID FOR* Reflux esophagitis [K21.0] More... Essential hypertension [I10] INVALID FOR* Internal carotid artery stenosis, bilateral [I6*INVALID FOR* Malnutrition of mild degree ([facility]) [E44.1] INVALID FOR* History of common carotid artery stent placemen*INVALID FOR* History of carotid stenosis [Z86.79] INVALID FOR* Prescriptions ordered this encounter Disp Refills Start End ALBUTEROL SULFATE HFA 90 MCG/ACTUATI* 1 In* 5 05/13/2018 Route: INHALATION Sig: Inhale 2 Puffs as instructed every 4 hours as needed for Wheezing/Shortness of Breath. ATORVASTATIN 20 MG TABLET 90 t* 3 05/13/2018 Route: ORAL Sig: Take 1 tablet by mouth once daily. SUCRALFATE 1 GRAM TABLET 90 t* 1 05/13/2018 Route: ORAL Sig: Take 1 tablet by mouth three times daily before meals. Medications Discontinued During This Encounter buPROPion XL (WELLBUTRIN XL) 150 mg * 30 t* 0 04/17/2018 05/13/2018 Route: ORAL Sig: Take 1 tablet by mouth once daily. Disc: Reason for discontinue is not on file. naproxen (NAPROSYN) 500 mg tablet 30 t* 0 12/20/2017 05/13/2018 Route: ORAL Sig: Take 1 tablet by mouth twice daily as needed (for pain/inflammation). Take with food. Disc: Reason for discontinue is not on file. albuterol HFA (VENTOLIN HFA) 90 mcg/* 1 In* 5 09/05/2017 05/13/2018 Route: INHALATION Sig: Inhale 2 Puffs as instructed every 4 hours as needed for Wheezing/Shortness of Breath. Disc: Reason for discontinue is not on file. atorvastatin (LIPITOR) 20 mg tablet 90 t* 0 01/15/2017 05/13/2018 Route: ORAL Sig: Take 1 tablet by mouth once daily. Disc: Reason for discontinue is not on file. sucralfate (CARAFATE) 1 gram tablet 90 t* 1 04/17/2018 05/13/2018 Route: ORAL Sig: Take 1 tablet by mouth three times daily before meals. Disc: Reason for discontinue is not on file. Encounter Status:Closed by JEREMIAS BURNS CNP on 05/14/18 PROGRESS Observed: 05/05/2018 Status: COMPLETED Source: [place] 5:04 PM [facility] REPOSITORY HNO ID: [id number] Author: Graciela Romero Service: (none) Author Type: Registered Nurse Type: Progress Notes Filed: 05/07/2018 5:34 PM Note Text: Unable to reach pt. URIEL Observed: 05/05/2018 Status: COMPLETED Source: [place] 12:00 AM [facility] REPOSITORY Patient Outreach (INTMWS) SHAYAN CULVER ([id number]) 1950 M Date Time Provider Department 05/05/18 GRACIELA OCAMPO During your visit today, we recorded the following information about you: Graciela Capps RN 05/07/2018 5:34 PM Signed Unable to reach pt. Allergies As of Date: 05/05/2018 Noted Allergy Reaction FLOXIN (OFLOXACIN) 10/09/2005 1 - Mental Status Change Comments: Severe depression. FLAGYL (METRONIDAZOLE HCL) 01/15/2005 1 - Mental Status Change Comments: Depression. CIPROFLOXACIN 02/16/2013 6 - Diarrhea 16 - Unknown Comments: ? diarrhea. 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 Hospital Follow Up [7950] Transition Of Care [7007] Reason For Visit History Recorded Prescriptions as of 05/05/2018 Sig: BUPROPION XL 150 MG TAB Take 1 tablet by mouth once d* HYDROXYZINE PAMOATE 25 MG CAP* Take 1 capsule by mouth three* SUCRALFATE 1 GRAM TABLET Take 1 tablet by mouth three * PREDNISONE 10 MG TABLET Take 40 mg x 3 days, 20 mg x * FLUTICASONE 50 MCG/ACTUATION * Use 2 Sprays in each nostril * FLUDROCORTISONE 0.1 MG TABLET Take 1 tablet by mouth twice * NAPROXEN 500 MG TABLET Take 1 tablet by mouth twice * ESOMEPRAZOLE MAGNESIUM 40 MG * Take 1 capsule by mouth daily* CLOPIDOGREL 75 MG TABLET Take 1 tablet by mouth once d* ALBUTEROL SULFATE HFA 90 MCG/* Inhale 2 Puffs as instructed * GUAIFENESIN ER 1,200 MG TABLE* Take 1 tablet by mouth once d* MECLIZINE 12.5 MG TABLET Take 1 tablet by mouth twice * LEVOTHYROXINE 75 MCG TABLET Take 1 tablet by mouth once d* SERTRALINE 100 MG TABLET Take 0.5 tablets by mouth twi* ATORVASTATIN 20 MG TABLET Take 1 tablet by mouth once d* ASPIRIN 325 MG TABLET Take 81 mg by mouth once genaro* POTASSIUM CHLORIDE ER 10 MEQ * Take 1 tablet by mouth daily * MULTIVITAMIN TABLET Take one(1) tablet daily. Problem List As Of Date 05/05/2018 Noted Resolved MALIGNANT NEOPL TONSIL [C09.9] INVALID FOR* DIZZINESS AND GIDDINESS [R42] INVALID FOR* More... 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 Depression [F32.9] INVALID FOR* More... GERD (gastroesophageal reflux disease) [K21.9] INVALID FOR* More... Vitamin d deficiency [E55.9] Hyperlipidemia [E78.5] More... Hearing loss [H91.90] INVALID FOR* BPPV (benign paroxysmal positional vertigo) [H8*INVALID FOR* Tonsillar cancer [C09.9] INVALID FOR* CAD (coronary artery disease) [I25.10] More... Carotid artery stenosis, symptomatic [I65.29] More... Encounter for screening colonoscopy [Z12.11] INVALID FOR* Diverticula of colon [K57.30] INVALID FOR* Gastritis [K29.70] INVALID FOR* Irritation around percutaneous endoscopic gastr*INVALID FOR* Essential hypertension, benign [I10] More... Labile blood pressure [R09.89] INVALID FOR* Other pain disorders related to psychological f*INVALID FOR* Adjustment disorder with mixed anxiety and depr*INVALID FOR* Asthma, moderate persistent, poorly-controlled * Arthritis [M19.90] INVALID FOR* More... Orthostatic hypotension [I95.1] INVALID FOR* More... COPD with chronic bronchitis (HCC) [J44.9] INVALID FOR* More... Hypertension [I10] INVALID FOR* More... Environmental allergies [Z91.09] INVALID FOR* More... Complication of gastrostomy tube (HCC) [K94.20] INVALID FOR* Reflux esophagitis [K21.0] More... Essential hypertension [I10] INVALID FOR* Internal carotid artery stenosis, bilateral [I6*INVALID FOR* Malnutrition of mild degree (HCC) [E44.1] INVALID FOR* History of common carotid artery stent placemen*INVALID FOR* History of carotid stenosis [Z86.79] INVALID FOR* Encounter Status:Closed by GRACIELA ROMERO on 05/07/18 PROGRESS Observed: 05/03/2018 Status: COMPLETED Source: [place] 9:55 AM [facility] REPOSITORY [facility] ID: [id number] Author: Ana Murphy Service: (none) Author Type: Physician Type: Progress Notes Filed: 05/03/2018 9:57 AM Note Text: OPERATIVE NOTATION FOR [facility] SURGICAL PROCEDURE. May 01, 2018 Shayan Jerome Palomo 1950 [id number] male PROCEDURE: EGD WITH BIOPSY - [id number] SURGEON: Alejandra Murphy M.D. FACS MENTAL HEALTH ASSOCIATE: None DEPT: WQ PROVIDER: [id number]=AstjmmzAna Murphy MD POS: [id number]=[id number] DIAGNOSIS: (K92.2) Acute GI bleeding (primary encounter diagnosis) ASA CLASS: 3 - Severe FINDINGS: no obvious source COMPLICATIONS: None PMHx - PAST MEDICAL HISTORY Diagnosis Date - BPH (benign prostatic hyperplasia) - CAD (coronary artery disease) - Carotid stenosis L>R - COPD (chronic obstructive pulmonary disease) (HCC) - Essential hypertension, benign Labile hyper and hypotensive - GERD (gastroesophageal reflux disease) 2012 - History of gastric bypass - Hyperlipidemia - Hypothyroidism - Major depressive disorder, single episode, moderate (HCC) Corey Pardo-therapist and José Stewart - Malignant neoplasm of lingual tonsil (HCC) 2004 SCC - GA (myocardial infarction) (HCC) 02/2013 CABG x 4 - Orthostatic hypotension - Reflux esophagitis Confirmed by Ba swallow. - Seasonal allergies Dr. Espana. 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 Ana Murphy MD DISCHARGE SUMMARY Observed: 05/01/2018 Status: F Source: [place] 12:22 PM [facility] REPOSITORY [facility] Medical Records Department [address] [place] [address] Discharge Summary 05/01/18 1200 MR#: [id number] Acct: [id number] Name: SHAYAN CULVER Rep #: [id number] : 1950 67 From: David Issa MD PCP: Laura Grove MD Status: ADM IN Y [place] [facility] [place] [id number] Discharge Date and Diagnosis Date of Admission: 04/29/18 Date of Discharge: 05/01/18 - Primary Discharge Diagnosis Acute gastritis; NSAID induced - Secondary Discharge Diagnosis Chronic Problems (Last Reviewed 04/29/18 @ 09:47 by Terry Dunbar MD) Dyspnea on exertion (Chronic) Fatigue (Chronic) Atherosclerosis of [place] coronary artery of [place] heart without angina pectoris (Chronic) CABG 2012; NSTEMI 08/31/2014; Syncope (Chronic) Bilateral carotid artery stenosis (Chronic) History of gastric bypass (Chronic) Hypertension (Chronic) Hyperlipidemia (Chronic) History of coronary artery bypass graft (Chronic 02/26/15) LEVINE-LAD, SVG to diag and LCx. SVG to PDA of RCA 02/26/2013 @ [facility]; Adrenal insufficiency (Chronic) Generalized weakness (Chronic) Non compliance w medication regimen (Chronic) Orthostatic hypotension (Chronic) Asthma (Chronic) Depression (Chronic) Tonsillar cancer (Chronic) diagnosed in 2005 and treated with surgery, radiation and cis-platinin Hypothyroidism (Chronic) Hospital Course and Treatment Imaging Results: Clinical Impression(s) from Imaging Studies Abdomen/Pelvis CT 04/29/18 13:14 IMPRESSION: Midline ventral hernia containing nondilated small bowel loops. Postsurgical changes in the stomach as well as in the small bowel and colon. There has been no change. Electronically Signed: Mckay Blackwood MD at 14:07 EDT Tel [phone], Service support , Labs (Last 48 Hours) WBC 7.3 RBC 3.65 L Hgb 11.7 L Hct 35.0 L MCV 95.9 H MCH 32.1 H MCHC 33.4 RDW 15.2 H RDW Differential 52.9 H WBC RBC Hgb Hct MCV MCH MCHC RDW RDW Differential Plt Count MPV Immature Gran % (Auto) WBC 7.0 RBC 3.68 L Hgb 11.6 L Hct 35.3 L MCV 95.9 H MCH 31.5 MCHC 32.9 RDW 14.9 H Operations: None Summary of Care Provided: Physical exams at the time of discharge: GENERAL: cooperative HEENT: Atraumatic moist oral mucosa EYES; Anicteric, Normal Conjuctiva NECK; supple, normal thyroid, RESPIRATORY: Clear to auscultation bilaterally, CARDIOVASCULAR: Regular S1 S2, GI: soft, non-tender, normoactive bowel sounds, : No Renal angle tenderness; No acuna EXTREMITIES: No edema, no clubbing, no cyanosis. MUSCULOSKELTAL: No Joint Tenderness; no muscle waisting NEURO: Awake; no lateralizing signs. SKIN: No Rash PSYCH; Normal affect Patient is a 67-year-old gentleman with multiple comorbidities who presented with lower GI bleed 1. GI bleed suspected to be NSAID induced gastritis. Patient was on dual antiplatelet therapy held on admission started on Protonix consultation placed to Dr. Murphy with general surgery and underwent endoscopic evaluation on 05/01/2018 findings included evidence of gastritis which was felt to be secondary to patient's NSAID use; discontinued on discharge and prescribed PPI 2. Hypokalemia corrected per protocol 3. CAD with previous CABG and subsequent stent placement patient dual antiplatelets held on admission in view of above 4. Carotid artery disease with previous carotid stents 5. Hypothyroidism-patient is on levothyroxine home dose continued 6. 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 History of gastric bypass 8. Adrenal insufficiency: on PO prednisone 5mg bid held and started on IV Solumedrol 20mg bid 9. Orthostatic Hypotension: on midodrine 10. Depression patient is on SSRI 11. DVT prophylaxis SCDs only Discharge Diet: No Restrictions Discharge Activity: Return to Normal Activity Home Medications: Medications to take at Discharge Clopidogrel Bisulfate [Plavix] 75 mg PO DAILY 10/12/15 Levothyroxine [Synthroid] 75 mcg PO DAILY 10/12/15 Albuterol Inhaler [Ventolin Hfa] 1 puff INHALATION Q4H PRN PRN 12/03/16 sertraline 50 mg tablet 50 mg PO QDAY 08/01/17 atorvastatin 20 mg tablet 20 mg PO QDAY 02/03/18 fludrocortisone 0.1 mg tablet 0.1 mg PO QDAY 02/03/18 prednisone 5 mg tablet 5 mg PO BID 02/03/18 guaifenesin ER 1,200 mg tablet, extended release 12 hr 1,200 mg PO Q12H 04/03/18 meclizine 12.5 mg tablet 12.5 mg PO BID-TID PRN 04/03/18 multivitamin tablet 1 tab PO DAILY 04/03/18 Aspirin [Aspirin EC] 81 mg PO DAILY 04/29/18 Fluticasone Propionate 2 puff NASAL QHS 04/29/18 Ranitidine [Zantac] 150 mg PO BID 04/29/18 Sucralfate 1 tab PO TID 04/29/18 potassium chloride ER 20 mEq tablet,extended release(part/cryst) 40 meq PO BIDCM #60 tab 04/30/18 Pantoprazole Sodium [Protonix] 40 mg PO DAILY #60 tablet 05/01/18 Following Prescrptions Were Given to Patient: Pantoprazole Sodium [Protonix] 40 mg PO DAILY #60 tablet Primary Care Physician: Laura Grove MD [Primary Care Provider] - Please follow up with your Primary Care Physician in: in 1- 2 weeks Please Follow Up With: Ana Murphy MD When: in 1-2 weeks Disposition: Home Minutes spent on discharge:: 35 Patient Condition:: Stable Medical Necessity - Tobacco Use Smoking Status: Never smoker Meaningful Use Info Meaningful Use Diagnoses (Choose all that apply): None applicable Code Visit Inpatient E CARIE M: [id number] Disch Hosp 05/01/18 1222 <Electronically signed by David Issa MD> Date David Issa MD Cosigner Signature (if applicable): Date CC: Laura Grove MD; David Issa MD Signed DISCHARGE INSTRUCTION Observed: 05/01/2018 Status: F Source: [place] 12:00 PM [facility] REPOSITORY [facility] Medical Records Department [address] [place] [address] Instructions for Home/Discharge Instructions 05/01/18 1158 MR#: [id number] Acct: [id number] Name: SHAYAN CULVER Rep #: [id number] : 1950 67 From: David Issa MD PCP: Laura Grove MD Status: ADM IN You will use the following diet at home:: No restrictions Your food should be the consistency of: Regular Discharge Activity: Return to Normal Activity Allergies/Adverse Reactions: Allergies ciprofloxacin [From Cipro] Adverse Reaction (Verified 04/29/18 13:00) Vomiting ciprofloxacin HCl [From Cipro] Adverse Reaction (Verified 04/29/18 13:00) Vomiting metronidazole [From Flagyl] Adverse Reaction (Verified 04/29/18 13:00) Vomiting morphine Adverse Reaction (Verified 04/29/18 15:21) after 2-3 days I turn into a monster ofloxacin [From Floxin] Adverse Reaction (Verified 04/29/18 13:00) Vomiting Medications to take at Discharge Clopidogrel Bisulfate [Plavix] 75 mg PO DAILY 10/12/15 Levothyroxine [Synthroid] 75 mcg PO DAILY 10/12/15 Albuterol Inhaler [Ventolin Hfa] 1 puff INHALATION Q4H PRN PRN 12/03/16 sertraline 50 mg tablet 50 mg PO QDAY 08/01/17 atorvastatin 20 mg tablet 20 mg PO QDAY 02/03/18 fludrocortisone 0.1 mg tablet 0.1 mg PO QDAY 02/03/18 prednisone 5 mg tablet 5 mg PO BID 02/03/18 guaifenesin ER 1,200 mg tablet, extended release 12 hr 1,200 mg PO Q12H 04/03/18 meclizine 12.5 mg tablet 12.5 mg PO BID-TID PRN 04/03/18 multivitamin tablet 1 tab PO DAILY 04/03/18 Aspirin [Aspirin EC] 81 mg PO DAILY 04/29/18 Fluticasone Propionate 2 puff NASAL QHS 04/29/18 Ranitidine [Zantac] 150 mg PO BID 04/29/18 Sucralfate 1 tab PO TID 04/29/18 potassium chloride ER 20 mEq tablet,extended release(part/cryst) 40 meq PO BIDCM #60 tab 04/30/18 Pantoprazole Sodium [Protonix] 40 mg PO DAILY #60 tablet 05/01/18 The following prescriptions were given: Pantoprazole Sodium [Protonix] 40 mg PO DAILY #60 tablet Primary Care Physician: Laura Grove MD [Primary Care Provider] - Please follow up with your Primary Care Physician in: in 1- 2 weeks Test Results: Test results from this visit will be discussed in further detail at your follow-up appointment, if applicable. Please Follow Up With: Ana Murphy MD When: in 1-2 weeks Proposed Discharge Date: 05/01/18 05/01/18 1200 <Electronically signed by David Issa MD> Date David Issa MD CC: Laura Grove MD; Ana Murphy MD OPERATIVE REPORT - Observed: 05/01/2018 Status: F Source: [place] [facility] 11:25 AM [facility] REPOSITORY [facility] Medical Records Department [address] [place] [address] Operative Report - Endoscopy MR#: [id number] Acct: [id number] Name: SHAYAN CULVER Rep #: [id number] : 1950 67 From: Ana Murphy MD PCP: Laura Grove MD Status: ADM IN Patient Name: Shayan Culver Procedure Date: 05/01/2018 11:02 AM Date of : 1950 Age: 67 Procedure: Upper GI endoscopy Indications: Suspected upper gastrointestinal bleeding Providers: Ana Murphy MD Referring MD: Shanda Andrade Medicines: Monitored Anesthesia Care Patient Profile: This is a 67 year old male. Refer to note in patient chart for documentation of history and physical. Complications: No immediate complications. Procedure: Pre-Anesthesia Assessment: - Prior to the procedure, a History and Physical was performed, and patient medications and allergies were reviewed. The patient is competent. The risks and benefits of the procedure and the sedation options and risks were discussed with the patient. All questions were answered and informed consent was obtained. Patient identification and proposed procedure were verified by the physician, the nurse and the cut off operator scorer in the procedure room. Mental Status Examination: alert and oriented. Airway Examination: normal oropharyngeal airway and neck mobility. Respiratory Examination: clear to auscultation. CV Examination: normal. Prophylactic Antibiotics: The patient does not require prophylactic antibiotics. Prior Anticoagulants: The patient has taken Plavix (clopidogrel), last dose was day of procedure. ASA Grade Assessment: III - A patient with severe systemic disease. After reviewing the risks and benefits, the patient was deemed in satisfactory condition to undergo the procedure. The anesthesia plan was to use monitored anesthesia care (MAC). Immediately prior to administration of medications, the patient was re-assessed for adequacy to receive sedatives. The heart rate, respiratory rate, oxygen saturations, blood pressure, adequacy of pulmonary ventilation, and response to care were monitored throughout the procedure. The physical status of the patient was re-assessed after the procedure. After obtaining informed consent, the endoscope was passed under direct vision. Throughout the procedure, the patient's blood pressure, pulse, and oxygen saturations were monitored continuously. The gastroscope was introduced through the mouth, and advanced to the jejunum. The upper GI endoscopy was accomplished without difficulty. The patient tolerated the procedure well. Scope In: 11:07:24 AM Scope Out: 11:17:26 AM Total Procedure Duration Time 0 hours 10 minutes 2 seconds Findings: The examined jejunum was normal. The examined duodenum was normal. Evidence of a patent vertical banded gastroplasty was found. A gastric pouch was found. The staple line appeared intact. Evidence of a Silastic band was not seen. Evidence of a gastric bypass was found. A gastric pouch was found. The [id number] limb was examined. There was evidence of a closed previous gastrostomy present in the gastric body. This was characterized by erythema. Scattered mild inflammation characterized by erythema, friability and granularity was found in the entire examined stomach. Biopsies were taken with a cold forceps for Helicobacter pylori cultures. Biopsies were taken with a cold forceps for histology. Mildly severe esophagitis with no bleeding was found. Biopsies were taken with a cold forceps for histology. Impression: - Normal examined jejunum. - Normal examined duodenum. - Patent vertical banded gastroplasty and intact staple line. - Gastric bypass. - Closed previous gastrostomy present characterized by erythema. - Chronic gastritis. Biopsied. - Mildly severe reflux esophagitis. Biopsied. Recommendation: - Return to my office in 1 week. - Use Prilosec (omeprazole) 40 mg PO daily. - Continue present medications. Procedure Code(s): --- Professional --- 53922, Esophagogastroduodenoscopy, flexible, transoral; with biopsy, single or multiple CPT copyright 2017 [employer]. All rights reserved. The codes documented in this report are preliminary and upon managed care manager review may be revised to meet current compliance requirements. Ana Murphy MD 05/01/2018 11:24:46 AM This report has been signed electronically. Number of Addenda: 0 Note Initiated On: 05/01/2018 11:02 AM 05/01/18 1125 Date Ana Murphy MD Cosigner Signature: Date (if indicated) CC: Laura Grove MD; David Issa MD; Shanda Andrade MD Date Dictated: 05/01/18 1102 Date Transcribed: Whip Operator: DONELL Signed EGD (PICK SITE) Observed: 05/01/2018 Status: F Source: [place] 11:00 AM [facility] REPOSITORY Patient: SHAYAN CULVER : 1950 (67/M) Acct Num: [id number] Phys: Maegan HANNA, Unit Num: [id number] Loc: MS3 [id number] Specimen: [id number] Received: 05/01/18 - 1338 Spec Type: EGD BIOPSY TISSUES 1 TISSUES: A. Gastric mucous membrane B. Gastric mucous membrane COMMENT A. The results of immunohistochemistry for Helicobacter pylori will be reported separately ([id number]). B. Alcian blue/PAS stain with matched control is used in the evaluation of the specimen. GROSS DESCRIPTION A - Received in fixative is one container labeled with the patient's name and designated antral biopsy. The specimen consists of one irregular fragment of light bell soft tissue that measures 0.8 x 0.2 x 0.1 cm. The specimen is totally submitted in one cassette. B - Received in fixative is one container labeled with the patient's name and designated GE junction biopsy. The specimen consists of one irregular fragment of light bell soft tissue that measures 0.6 x 0.2 x 0.1 cm. The specimen is totally submitted in one cassette. / KATIANA:donell 05/01/18 TC:3 CPT: 88911 x2, 93039 HEADER OPERATION: EGD ([facility]) PRE-OP DIAGNOSIS: GI bleed TISSUE SUBMITTED: A. Antral biopsy, B. GE junction biopsy MICROSCOPIC DESCRIPTION Slides are reviewed. A. The specimen shows fragments of gastric mucosa with chronic inflammatory cell infiltrates in the lamina propria consisting of lymphocytes and plasma cells, consistent with mild chronic gastritis. MICROSCOPIC DIAGNOSIS A. Antral biopsy: Mild gastritis. See microscopic description and comment. B. GE junction, biopsy: A fragment of gastroesophageal mucosa with chronic inflammation. Intestinal metaplasia (goblet cell metaplasia) is not identified. See comment. KATIANA:donell 05/02/18 Signed Sergey Dumont 05/02/18 <signature on file> Performed By: #### PEGD #### [facility] [place], [place], [address] IMMUNOHISTOCHEMISTRY Observed: 05/01/2018 Status: F Source: [place] 12:00 AM [facility] REPOSITORY Patient: SHAYAN CULVER : 1950 (67/M) Acct Num: [id number] Phys: David Issa MD Unit Num: [id number] Loc: MS3 [id number] Specimen: [id number] Received: 05/02/18 - 1112 Spec Type: IMMUNO TISSUES 1 TISSUES: A. Stomach, NOS SPECIMEN INFORMATION: Tissue Source: A - Antral biopsy Clinical Info: GI bleed Specimen Number: [id number] CPT code: 11130 METHODOLOGY: Deparaffinized sections of prefer/formalin-fixed tissue or PAP/DQ stained slides are incubated with monoclonal/polyclonal antibodies/oligonucleotide probes. Localization is made via biotin free immunoperoxidase method. Appropriate controls are performed and reacted as expected. Results on target cell population are indicated in the following table: RESULTS: ANTIBODY / CLONE RESULT Block A H Pylori (polyclonal) negative These tests were developed and their performance characteristics determined by [facility]. They may not have been cleared or approved by the U.S. Food and Drug Administration. The FDA has determined that such clearance or approval is not necessary. INTERPRETATION: A. Antral biopsy: Negative for Helicobacter pylori organisms. SJ:donell 05/05/18 PHYSICIAN AND INSTITUTION [address] [address] Signed Sergey Dumont 05/05/18 <signature on file> Performed By: #### PIMM #### [facility] [address] [place] [address]. [place], [place], [id number] CNOP Observed: 05/01/2018 Status: COMPLETED Source: [place] 12:00 AM [facility] REPOSITORY Operative Note (Enc) (GENSWS) Progress Notes: Ana Murphy MD 05/03/2018 9:57 AM Signed OPERATIVE NOTATION FOR [facility] SURGICAL PROCEDURE. May 01, 2018 Shayan Culver 1950 [id number] male PROCEDURE: EGD WITH BIOPSY - [id number] SURGEON: Alejandra Murphy M.D. FACS MENTAL HEALTH ASSOCIATE: None DEPT: WQ PROVIDER: X95=MujzobsAna Murphy MD POS: 0X1=HEOUXLPCL DIAGNOSIS: (K92.2) Acute GI bleeding (primary encounter diagnosis) ASA CLASS: 3 - Severe FINDINGS: no obvious source COMPLICATIONS: None PMHx - PAST MEDICAL HISTORY Diagnosis Date - BPH (benign prostatic hyperplasia) - CAD (coronary artery disease) - Carotid stenosis L>R - COPD (chronic obstructive pulmonary disease) ([facility]) - Essential hypertension, benign Labile hyper and hypotensive - GERD (gastroesophageal reflux disease) 2012 - History of gastric bypass - Hyperlipidemia - Hypothyroidism - Major depressive disorder, single episode, moderate (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) 02/2013 CABG x 4 - Orthostatic hypotension - Reflux esophagitis Confirmed by Ba swallow. - Seasonal allergies Dr. Espana. - Stroke (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 Ana Murphy MD Encounter Status:Closed by ANA MURPHY MD on 05/03/18 BASIC METABOLIC Collected: 04/30/2018 Status: F Source: [place] PROFILE ([facility]) 5:40 AM [facility] REPOSITORY TYPE CODE TESTS RESULT OUT OF RANGE REFERENCE UNITS LAB L501.0100 74-106 mg/dL High GLU 117 Result Comment: Fasting Glucose result from 100 to 125 mg/dL suggests IMPAIRED HOMEOSTASIS per A.D.A. criteria. Please note revised GLUCOSE reference range effective 2017. LAB L501.1000 7-18 mg/dL Normal BUN 17 LAB L501.1100 0.70-1.30 mg/dL Normal CREAT,SERUM 1.07 Result Comment: The validity of the calculated GFR AND GFRAA in patients over 70 years has not been determined. Clinical correlation is essential. LAB L501.1110 >60 mL/min Normal EST GFR 74 Result Comment: Non- GFR Calc LAB L501.1115 >60 mL/min Normal EST GFR - AA 89 Result Comment: GFR Calc LAB L501.1255 ml/min Normal Estimated CRCL 75.55 LAB L501.1300 10-20 RATIO Normal BUN/CRE 15.9 LAB L501.2200 8.5-10 mg/dL Low .1 CA 8.1 LAB L501.5300 136-14 mmol/L Normal 5 NA 142 LAB L501.5600 3.5-5. mmol/L Normal 1 K 3.6 LAB L501.5900 98-107 mmol/L High CL 108 LAB L501.6100 21.0-3 mmol/L Normal 2.0 CO2 27.0 LAB L501.6200 5-15 Normal GAP 7 Performed By: #### L500.2500 #### [facility] [address] [place], [place], [id number] CBC W/DIFF, AUTOMATED Collected: 04/30/2018 Status: F Source: [place] 5:40 AM [facility] REPOSITORY TYPE CODE TESTS RESULT OUT OF RANGE REFERENCE UNITS LAB L100.1000 4.4-11.0 K/mm3 Normal WBC 7.0 LAB L100.1200 4.6-6.2 M/mm3 Low RBC 3.68 LAB L100.1300 13.0-16.5 g/dl Low HGB 11.6 LAB L100.1400 40-54 % Low HCT 35.3 LAB L100.1500 80-94 fL High MCV 95.9 LAB L100.1600 27.0-32.0 pg Normal MCH 31.5 LAB L100.1700 32-36 g/gl Normal MCHC 32.9 LAB L100.1810 11.6-14.6 % High RDW CV 14.9 LAB L100.1820 35.1-43.9 fl High RDW SD 52.8 LAB L100.1900 150-450 K/mm3 Normal PLT 245 LAB L100.2000 6.2-12.0 fl Normal MPV 9.5 LAB L100.2100 47-70 % High NEUT% 89.3 LAB L100.2200 19-41 % Low LY% 7.3 LAB L100.2300 0-10 % Normal MONO% 3.1 LAB L100.2400 0-5 % Normal EO% 0.0 LAB L100.2500 0-1 % Normal BASO% 0.3 LAB L100.2550 0.0-0.9 % Normal IM GRAN % 0.000 Result Comment: IG% - Immature Granulocytes (promyelocytes, myelocytes and metamyelocytes) > 1% indicates that a LEFT SHIFT is Present. LAB L100.2620 2.0-7.7 X10 3/uL Normal Absolute Neut 6.3 LAB L100.2720 0.83-4.51 X10 3/ul Low Absolute Lymph 0.51 LAB L100.4500 Normal SMEAR COMMENT SCANNED Performed By: #### L100.0100 #### [facility] [address] [facility] [place], [address] CONSULTATION Observed: 04/29/2018 Status: F Source: [place] 8:16 PM [facility] REPOSITORY [facility] Medical Records Department [address] [place] [address] Consultation 04/29/182004 MR#: [id number] Acct: [id number] Name: SHAYAN CULVER Rep #: [id number] : 1950 67 From: Ana uMrphy MD PCP: Laura Grove MD Status: ADM IN Location: [facility] [id number] Reason for Consult Date of Consultation: 04/29/18 Reason for Consultation: GI Bleed History of Present Illness: The patient is a 67 year old M who recently underwent bilateral carotid artery stenting. The patient is on aspirin and Plavix. he was given a prescription of Naprosyn but cautioned against taking it due to the risk of ulcerations. the patient had an upper respiratory infection at the end of March. He was initially given antibiotics and given a steroid taper. Due to pain, the patient is also taking significant quantities of Excedrin. he noted dark stools for a day, then bloody stools followed by maroon to dark or melena stools again. He denies dizziness. He does note some epigastric discomfort. He presented emergency department. A complete blood count the [facility] in January, had a hemoglobin of 14.7. Today's hemoglobin is 11.7. the patient has a complex past history.I had most recently seen the patient July,. My note at that time included: Shayan is a patient I am following for an incisional hernia and a leaking PEG tube site. The patient's most significant concern his chronic drainage from a left sub costal wound site. 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 The patient noted no problems with the PEG tube site after removal until underwent coronary artery bypass grafting in 2012. Since that time, he notes that the upper left incision site which he recalls is being previously the PEG tube site now has chronic drainage. He notes no gastric contents but occasionally purulent drainage from this site. He recalls his chest tube was located in that site of my PEG tube placement when he underwent his CABG - February 14, 2013. He had a previous gastric reduction surgery performed by Dr. Ana Katz which involved stapling of the stomach and a gastrostomy tube placed lower in his left upper quadrant in the . When I saw him for PEG tube placement in 2004, I had to place the PEG tube more proximally in the stomach felt to be above his restrictive staple line. I did initially seen him in July 2013 for this complaint. I obtained a CT scan of the abdomen and pelvis and chest. This demonstrated: CT ABDOMEN FINDINGS: * Midline abdominal hernia containing multiple loops of small bowel noted on image 187. No obstruction is seen. * Multiple postsurgical clips in the epigastric region noted image 154. * Soft tissue density or changes from previous PEG tube noted image 69 LEFT side of the midline just below the xiphoid process extending into the stomach. No fluid collections are seen in this area. No definite fistulous tract lumen is seen. Liver: Liver texture unremarkable. There is a subcentimeter cyst dome of liver RIGHT side image 94. Postsurgical clips in the gallbladder fossa noted Biliary tree: Common duct normal in size. No intrahepatic bile duct dilatation is seen. Pancreas: Unremarkable Spleen: Spleen normal size. No focal masses. Adrenals: Normal size. Kidneys: Are seen to function bilaterally. RIGHT renal cyst is noted. Lymph nodes: No enlarged lymph nodes are seen. Retroperitoneum: The aorta is normal in size. Otherwise unremarkable. CT PELVIS FINDINGS: Lymph Nodes: No enlarged lymph nodes. Urinary bladder: Unremarkable IMPRESSION: 1. No fluid collections are seen at the site of the previous PEG tube tract. 2. Findings in the chest probably represent post radiation changes 3. Midline anterior abdominal wall hernia containing nondilated loops of small bowel I felt it was unusual that the patient's drainage started this many years following PEG tube placement and that he had no problem for over 5 years after the tube was removed. I then performed upper and lower endoscopy on 09/15/2013. The patient was found to have gastritis, previous gastrostomy present, patent vertical banded gastroplasty, gastric polyps, and evidence of where the PEG site has not closed completely. Colon noted multiple small diverticula in the sigmoid colon. Pathology demonstrated Antrum biopsy noting chronic inactive gastritis with single and minute non necrotizing granuloma, stomach polypectomy noting fundic gland polyp, and proximal to gastric band biopsy with no diagnostic alteration. H. Pylori was negative. The patient notes no complaints since the procedure. This demonstrated postsurgical changes consistent with his previous gastric stapling. My PEG site which demonstrated a indentation intragastrically but I was not able to feed a biopsy probe through the tract or feed a probe from the external abdominal cavity into the stomach through the tract. The patient noted that he did well for some time following this endoscopy and had minimal symptoms of drainage but recently he has noted increased drainage and occasionally what sounds like air leaking out of the site. He still does not note actual food or gastric contents draining but occasionally purulent discharge. He returns for repeat evaluation for the chronic above issue. The patient in August had a CT scan of the chest. This demonstrated the tract with indentation but no signs of intra-abdominal abscess or other abnormality. He returns now in September 2016 noting drainage increasing more frequently after eating. He also notes that his incisional hernias are enlarging both in the upper midline which seemed to be secondary to his cardiac surgical procedure and an incisional hernia below that site in the upper midline/just slightly supraumbilical region. He also has a history of tonsillar cancer. He received neck radiation. He had a duplex with a finding of carotid stenosis and was referred to Dr. Nieto for vascular surgical evaluation at [facility]. I repeated the CT scan with oral contrast this time asking the patient to strain to see if he could have any contrast be demonstrated his ejecting from the site. Due to testing and other issues the CT scan was not obtained until March 2017. CT scan again demonstrates the tract without any filling of contrast but both the subxiphoid incisional hernia which is just medial to the gastrostomy track and a larger super umbilical incisional hernia are increasing in size and are now giving the patient discomfort. The patient's most significant concern his chronic drainage from a left sub costal wound site. 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 The patient noted no problems with the PEG tube site since removal. He recently underwent coronary artery bypass grafting. Since that time, he notes that the upper left incision site which she recalls is being previously the PEG tube site now has chronic drainage. He also feels that his sternum seems somewhat unstable. He notes no gastric contents but occasionally purulent drainage from this site. He does not recall whether a chest tube was located in that site or not post CABG. I obtained a CT scan of the abdomen and pelvis and chest. This demonstrated no obvious abnormalities related to the coronary bypass grafting and no residual metallic or wire structures. This site does seem to be directed towards the PEG site. In repeat discussion with Radha Palomo, he notes that he had had gastric banding by Dr. Katz. On CT scan, there appears to be a surgical phyllis in the stomach not completely near the PEG site but this does not seem consistent with pure gastric banding. He also seems unusual at the patient's drainage what it started this many years following PEG tube placement. I communicated with Dr. Narciso Sears [facility] fluid noted a similar problem and is recommended to repeat upper endoscopy with resolution clip placement I performed upper endoscopy on May 07, 2017 and placed 2 clips at the leaking gastrostomy site and also noted a degree of gastritis which I performed a biopsy. Pathology demonstrated: Stomach, antrum, biopsy - Oxyntic type gastric mucosa with changes of chemical gastritis (reactive gastropathy). - No Helicobacter organisms identified. The patient notes no further bilious drainage from the site and no bubbling when he eats or coughs like he had previous to clip placement. He also notes no irritation around the site which she felt was from the leakage of gastric contents. He now notes a scant amount of white drainage from the site. He feels this is likely consistent with drainage as noted in past from what he thought was the chest tube site which came out just medial to the previous PEG site. His interpretation is that the gastric side is no longer leaking but the chronic issue at from the chest tube site is now the scant but less problematic drainage. Past Medical History Past Medical History (Chronic Problems): Chronic Problems (Last Reviewed 04/29/18 @ 09:47 by Terry Dunbar MD) Dyspnea on exertion (Chronic) Fatigue (Chronic) Atherosclerosis of [place] coronary artery of [place] heart without angina pectoris (Chronic) CABG 2012; NSTEMI 08/31/2014; Syncope (Chronic) Bilateral carotid artery stenosis (Chronic) History of gastric bypass (Chronic) Hypertension (Chronic) Hyperlipidemia (Chronic) History of coronary artery bypass graft (Chronic 02/26/15) LEVINE-LAD, SVG to diag and LCx. SVG to PDA of RCA 02/26/2013 @ [facility]; Adrenal insufficiency (Chronic) Generalized weakness (Chronic) Non compliance w medication regimen (Chronic) Orthostatic hypotension (Chronic) Asthma (Chronic) Depression (Chronic) Tonsillar cancer (Chronic) diagnosed in 2005 and treated with surgery, radiation and cis-platinin Hypothyroidism (Chronic) Medical History: Medical History (Last Reviewed 04/29/18 @ 09:47 by Terry Dunbar MD) Dyspnea on exertion (Chronic) R06.09 Fatigue (Chronic) R53.83 Atherosclerosis of [place] coronary artery of [place] heart without angina pectoris (Chronic) I25.10 CABG 2012; NSTEMI 08/31/2014; Syncope (Chronic) R55 Bilateral carotid artery stenosis (Chronic) I65.23 Hypertension (Chronic) I10 Hyperlipidemia (Chronic) E78.5 Adrenal insufficiency (Chronic) E27.40 Hypophosphatemia (Acute) E83.39 Generalized weakness (Chronic) R53.1 Hypokalemia (Acute) E87.6 Non compliance w medication regimen (Chronic) Z91.14 Orthostatic hypotension (Chronic) I95.1 Hypoxemia (Acute) R09.02 Asthma (Chronic) J45.909 Depression (Chronic) F32.9 Tonsillar cancer (Chronic) C09.9 diagnosed in 2005 and treated with surgery, radiation and cis-platinin Hypothyroidism (Chronic) E03.9 Allergies ciprofloxacin [From Cipro] Adverse Reaction (Verified 04/29/18 13:00) Vomiting ciprofloxacin HCl [From Cipro] Adverse Reaction (Verified 04/29/18 13:00) Vomiting metronidazole [From Flagyl] Adverse Reaction (Verified 04/29/18 13:00) Vomiting morphine Adverse Reaction (Verified 04/29/18 15:21) after 2-3 days I turn into a monster ofloxacin [From Floxin] Adverse Reaction (Verified 04/29/18 13:00) Vomiting Home Medications: Ambulatory Orders Medication Instructions Recorded Clopidogrel Bisulfate [Plavix] 75 mg PO DAILY 10/12/15 Levothyroxine [Synthroid] 75 mcg PO DAILY 10/12/15 Surgical History: Surgical History (Last Reviewed 04/29/18 @ 09:47 by Terry Dunbar MD) History of gastric bypass (Chronic) Z98.890 History of coronary artery bypass graft (Chronic) Onset Date: 02/26/15 LEVINE-LAD, SVG to diag and LCx. SVG to PDA of RCA 02/26/2013 @ [facility]; Surgical History: cholecystectomy, coronary bypass surgery, - - cholecystectomy, appendectomy, H AND N surgery for tonsillar cancer Lives: Spouse/ Significant Other Smoking Status: Never smoker Alcohol: None Drugs: None - *Family History Maternal Family History: Family History (Last Reviewed 04/29/18 @ 09:47 by Terry Dunbar MD) Mother CAD (coronary artery disease) Lung cancer Father Alcoholism Brother Diabetes Hypertension History Items: No pertinent history Review of Systems Constitutional: Reports: Fatigue. Denies: Chills, Fever, Weight Change HEENT: Denies: Head Aches, Sinus Congestion, Sinus Drainage Cardiovascular: Denies: Chest Pain, Palpitations Respiratory: Denies: Cough, Shortness of breath at rest, Sputum production Gastrointestinal: Reports: Abdominal Pain, Hematochezia, Melena. Denies: Nausea, Vomiting Genitourinary: Denies: Dysuria Musculoskeletal: Denies: Joint Pain, Joint Tenderness Skin: Denies: Rash, Wounds Neurological: Denies: Numbness, Tingling, Focal weakness Psychiatric: Denies: Anxiety, Depression, Homicidal Ideations, Suicidal Ideations Hematologic/ Lymphatic: Denies: Easy Bruising, Easy Bleeding - Physical Exam General: Alert, Oriented x3, Cooperative HEENT: Atraumatic, PERRLA, EOMI, Normocephalic Neck: Supple, No JVD, Negative Carotid Bruits Lungs: Clear to auscultation, Normal air movement Cardiovascular: Regular rate, No murmurs Abdomen: Bowel Sounds Present, Soft, Tender - In the epigastrium Extremities: No edema, Capillary Refill Less than 3 Seconds Skin: No rashes, No breakdown Musculoskeletal: No Tenderness to Palpation of Joints or Extremities Neurological: Cranial nerves II-XII grossly intact Psych/Mental Status: Normal Affect, Appropriate Vital Signs Temp Pulse Resp BP Pulse Ox 98.3 F 84 20 H 190/119 H 94 04/29/18 15:51 04/29/18 18:00 04/29/18 15:51 04/29/18 15:51 04/29/18 15:51 Oxygen Delivery Method Room Air Weight: 88.859 kg Body Mass Index (BMI) 26.5 Finger Stick Blood Glucose 104 Intake and Output for Last 24 Hours Intake Total 550 / 550 Output Total 600 / 600 Balance -50 / -50 Laboratory Tests Past 24 Hrs WBC 7.3 RBC 3.65 L Hgb 11.7 L Hct 35.0 L MCV 95.9 H MCH 32.1 H MCHC 33.4 WBC RBC Hgb Hct MCV MCH MCHC RDW RDW Differential Plt Count Assessment/Plan All Active Problems (Last Reviewed 04/29/18 @ 09:47 by Terry Dunbar MD) Lower GI bleed (Acute) Hypophosphatemia (Acute) Hypokalemia (Acute) Hypoxemia (Acute) Angina pectoris (Resolved) NSTEMI (non-ST elevated myocardial infarction) (Resolved) GI bleed-likely upper source due to aspirin, steroids, and Plavix. Patient an unremarkable colonoscopy 2012. He would like not to have another colonoscopy if possible. The patient will be admitted and his hemoglobin will be monitored. If his hemoglobin drops, more significantly. Plan will be for transfusion. Otherwise, I plan to perform upper endoscopy tomorrow. The patient understands the risks, benefits, complications, possible alternatives to endoscopy. Consents to the planned procedure. 04/29/182015 <Electronically signed by Ana Murphy MD> Date Ana Murphy MD Cosigner Signature (if applicable): Date CC: Laura Grove MD; Shanda Andrade MD; Ana Murphy MD Signed HISTORY AND PHYSICAL Observed: 04/29/2018 Status: F Source: [place] EXAM 7:48 PM [facility] REPOSITORY [facility] Medical Records Department [address] [place] [address] History and Physical 04/29/18 1430 MR#: [id number] Acct: [id number] Name: SHAYAN CULVER Rep #: [id number] : 1950 67 From: Shanda Andrade MD PCP: Laura Grove MD Status: ADM IN Y [id number] Problem List (1) Lower GI bleed Status: Acute History of Present Illness Date of Admission: 04/29/18 Chief Complaint: Lower GI bleed The patient is a 67 year old M with an extensive past medical history which includes CAD status post quadruple bypass, and carotid stenting, history of throat cancer, and hypotension. Was admitted by the ED on 04/29/2018 with a complaint of rectal bleeding of one day duration. According to patient, went to have a bowel movement and realized that the toilet bowl was full of from blood with very little bowel movement. It recurred today as well as so he decided coming to the ED. This is first episode of rectal bleeding. He denies any history of diverticular disease, any weight loss, any pain with the rectal bleeding or any vomiting. Patient is on aspirin and Plavix and states that he was put on a medication to help with his arthritis by his primary care doctor. He states he takes 1 tablet a day and on the medication information list, it said not to take medication if patient had heart stents; this is likely therefore an NSAID he was taking. He denied any associated chest pain, though he said he saw his medical device sales consultant this morning he complained of some chest discomfort and EKG was done which was normal. He admitted to mild shortness of breath but that is chronic and also complained of lightheadedness but attributed this to vertigo which he states is chronic since he had his throat cancer. He denied any coffee-ground emesis or abdominal pain. 12 point review of systems otherwise negative. In the ED, his vitals were significant for temperature of 97.9 Fahrenheit, blood pressure 167/116, pulse rate of 92 and respiratory rate of 16. Labs were significant for potassium of 2.9 and hemoglobin of 11.7, platelets where normal at 215. He had a CT of his abdomen and pelvis which was significant for midline ventral hernia with nondilated bowel loops. He has been admitted to be managed for lower GI bleed. [] Past Medical History Past Medical History (Chronic Problems): Chronic Problems (Last Reviewed 04/29/18 @ 09:47 by Terry Dunbar MD) Dyspnea on exertion (Chronic) Fatigue (Chronic) Atherosclerosis of [place] coronary artery of [place] heart without angina pectoris (Chronic) CABG 2012; NSTEMI 08/31/2014; Syncope (Chronic) Bilateral carotid artery stenosis (Chronic) History of gastric bypass (Chronic) Hypertension (Chronic) Hyperlipidemia (Chronic) History of coronary artery bypass graft (Chronic 02/26/15) LEVINE-LAD, SVG to diag and LCx. SVG to PDA of RCA 02/26/2013 @ [facility]; Adrenal insufficiency (Chronic) Generalized weakness (Chronic) Non compliance w medication regimen (Chronic) Orthostatic hypotension (Chronic) Asthma (Chronic) Depression (Chronic) Tonsillar cancer (Chronic) diagnosed in 2005 and treated with surgery, radiation and cis-platinin Hypothyroidism (Chronic) Medical History: Medical History (Last Reviewed 04/29/18 @ 09:47 by Terry Dunbar MD) Dyspnea on exertion (Chronic) R06.09 Fatigue (Chronic) R53.83 Atherosclerosis of [place] coronary artery of [place] heart without angina pectoris (Chronic) I25.10 CABG 2012; NSTEMI 08/31/2014; Syncope (Chronic) R55 Bilateral carotid artery stenosis (Chronic) I65.23 Hypertension (Chronic) I10 Hyperlipidemia (Chronic) E78.5 Adrenal insufficiency (Chronic) E27.40 Hypophosphatemia (Acute) E83.39 Generalized weakness (Chronic) R53.1 Hypokalemia (Acute) E87.6 Non compliance w medication regimen (Chronic) Z91.14 Orthostatic hypotension (Chronic) I95.1 Hypoxemia (Acute) R09.02 Asthma (Chronic) J45.909 Depression (Chronic) F32.9 Tonsillar cancer (Chronic) C09.9 diagnosed in 2006 and treated with surgery, radiation and cis-platinin Hypothyroidism (Chronic) E03.9 Allergies ciprofloxacin [From Cipro] Adverse Reaction (Verified 04/29/18 13:00) Vomiting ciprofloxacin HCl [From Cipro] Adverse Reaction (Verified 04/29/18 13:00) Vomiting metronidazole [From Flagyl] Adverse Reaction (Verified 04/29/18 13:00) Vomiting morphine Adverse Reaction (Verified 04/29/18 13:00) Other ofloxacin [From Floxin] Adverse Reaction (Verified 04/29/18 13:00) Vomiting Home Medications: Ambulatory Orders Medication Instructions Recorded Clopidogrel Bisulfate [Plavix] 75 mg PO DAILY 10/12/15 Levothyroxine [Synthroid] 75 mcg PO DAILY 10/12/15 Surgical History: Surgical History (Last Reviewed 04/29/18 @ 09:47 by Terry Dunbar MD) History of gastric bypass (Chronic) Z98.890 History of coronary artery bypass graft (Chronic) Onset Date: 02/26/15 LEVINE-LAD, SVG to diag and LCx. SVG to PDA of RCA 02/26/2013 @ [facility]; Surgical History: cholecystectomy, coronary bypass surgery, - - cholecystectomy, appendectomy, H AND N surgery for tonsillar cancer Lives: Spouse/ Significant Other Smoking Status: Never smoker Alcohol: None Drugs: None - *Family History Maternal Family History: Family History (Last Reviewed 04/29/18 @ 09:47 by Terry Dunbar MD) Mother CAD (coronary artery disease) Lung cancer Father Alcoholism Brother Diabetes Hypertension History Items: No pertinent history Review of Systems Constitutional: Denies: Chills, Fever, Malaise, Weakness, Weight Change, Fatigue Eyes: Denies: Cataracts HEENT: Denies: Head Aches, Sinus Congestion, Sinus Drainage Cardiovascular: Reports: Light Headedness - chronic. Denies: Chest Pain, Chest Tightness, Edema, Heaviness, Orthopnea, Palpitations, Paroxysmal Noc. Dyspnea, Syncope Respiratory: Denies: Cough, Shortness of Breath, Shortness of breath at rest, Sputum production Gastrointestinal: Reports: Hematochezia. Denies: Abdominal Pain, Dyspepsia, Hematemesis, Nausea, Melena, Vomiting Genitourinary: Denies: Dysuria Musculoskeletal: Denies: Joint Pain, Joint Tenderness Skin: Denies: Rash, Wounds Neurological: Denies: Numbness, Tingling, Focal weakness Psychiatric: Denies: Anxiety, Depression, Homicidal Ideations, Suicidal Ideations Hematologic/ Lymphatic: Denies: Easy Bruising, Easy Bleeding VTE Information - Inpt Only VTE Present on Admission: No VTE Mechan Device Prophylaxis: SCD's VTE Pharm Prophylaxis ordered?: Yes Reason prophylaxis not ordered:: Medical Contraindication - rectal bleeding - Physical Exam General: Alert, Oriented x3, Cooperative, No apparent distress HEENT: Atraumatic, PERRLA, EOMI, Normocephalic Oral: Dry Mucosa Neck: Supple, No JVD, Negative Carotid Bruits, No Nodes Lungs: Clear to auscultation, Normal air movement Cardiovascular: Regular rate, Regular Rhythm, Normal S1, Normal S2, No murmurs Abdomen: Bowel Sounds Present, Soft, Non Tender, Non-Distended, No Hepato-splenomegaly, - - well healed site in epigastrum where PEG tube was inserted Extremities: No edema, Capillary Refill Less than 3 Seconds Skin: No rashes, No breakdown Musculoskeletal: No Tenderness to Palpation of Joints or Extremities Lymphatic: No Cervical, Supraclavicular, or Inguinal Adenopathy Neurological: Cranial nerves II-XII grossly intact, Neuro grossly intact, Motor Exam 5/5 strength throughout Psych/Mental Status: Normal Affect, Appropriate, Alert and oriented to time, place, person, mood and affect Vital Signs Temp Pulse Resp BP Pulse Ox 97.9 F 92 16 167/116 H 94 04/29/18 12:58 04/29/18 13:03 04/29/18 12:58 04/29/18 13:03 04/29/18 12:58 Oxygen Delivery Method Room Air Weight: 200 lb Body Mass Index (BMI) 27.1 Finger Stick Blood Glucose 104 Laboratory Tests Past 24 Hrs WBC 7.3 RBC 3.65 L Hgb 11.7 L Hct 35.0 L MCV 95.9 H Diagnostic Data Abdomen/Pelvis CT 04/29/18 13:14 IMPRESSION: Midline ventral hernia containing nondilated small bowel loops. Postsurgical changes in the stomach as well as in the small bowel and colon. There has been no change. Electronically Signed: Mckay Blackwood MD at 14:07 EDT Tel [phone], Service support , Assessment/Plan All Active Problems (Last Reviewed 04/29/18 @ 09:47 by Terry Dunbar MD) Lower GI bleed (Acute) Hypophosphatemia (Acute) Hypokalemia (Acute) Hypoxemia (Acute) Angina pectoris (Resolved) NSTEMI (non-ST elevated myocardial infarction) (Resolved) 67-year-old male presenting with a one-day history of lower GI bleeding. 1. Lower GI bleeding likely medication induced vs diverticular disease * Bleeding started 1 day ago. It is painless bright red with no associated clots. * CT scan of abdomen only showed ventral hernia. * Hemoglobin is 11, with baseline from 1 year ago been around 16. Platelets are normal. * To [facility] with telemetry. * Keep n.p.o. for now. IV fluid normal saline 1 20 cc/h * IV pantoprazole 40 mg twice daily. * Hold aspirin, Plavix and NSAIDs. * consult general surgery. * 2. Hypokalemia: Potassium is 2.9 today. Has a history of hypokalemia. Will replace. Will check magnesium level as well. Will monitor. 3. CAD s/p CABG and carotid stents * hold aspirin, plavix. continue statins * 4. Hypotension: on midodrine, likely for orthostatic hypotension. will monitor 5. Macrocytic anemia * Hb is 11.7, with macrocytosis normochromic * will check iron panel, vitamin B12 and folate * 6. Hypothyroidism: Synthroid 75 mg daily. Will continue. 7. History of throat cancer: stable. S/p treatment. 8. History of adrenal insufficiency: * on PO prednisone 5mg bid. Will hold o/a of NPO status, and start IV solumedrol 20mg bid; the slightly higher replacement dose will also help with stress hormone replacement. DVT prophylaxis:SCDs. No anti-coagulation on account of rectal bleeding Prophylaxis: On IV PPI Code Status: Full code. * Patient counselled extensively about different types of code status, and differences between DNRCC, DNRCCA and full code. Patient elects to be full code. Total face to face time 17 mins Code Visit Inpatient E AND M: 56156 Init Hosp L3 Procedures: 16055 Advncd Care Plan 30 Min 04/29/181947 <Electronically signed by Shanda Andrade MD> Date Shanda Andrade MD Cosigner Signature: Date (if applicable) CC: Laura Grove MD; Shanda Andrade MD Signed MAGNESIUM Collected: 04/29/2018 Status: F Source: [place] 4:01 PM [facility] REPOSITORY TYPE CODE TESTS RESULT OUT OF RANGE REFERENCE UNITS LAB L501.5200 1.6-2.6 mg/dL Normal MG 2.2 Performed By: #### L501.5200, L503.6075, L503.6150, L503.6550 #### [facility] [address] [place], [address] IRON BINDING Collected: 04/29/2018 Status: F Source: [place] [facility] 4:01 PM [facility] REPOSITORY TYPE CODE TESTS RESULT OUT OF RANGE REFERENCE UNITS LAB L503.6075 250-450 ug/dL Normal TIBC 366 Performed By: #### L501.5200, L503.6075, L503.6150, L503.6550 #### [facility] [address] [place], [address] IRON Collected: 04/29/2018 Status: F Source: [place] 4:01 PM [facility] REPOSITORY TYPE CODE TESTS RESULT OUT OF RANGE REFERENCE UNITS LAB L503.6150 65-175 ug/dL Low IRON 63 Performed By: #### L501.5200, L503.6075, L503.6150, L503.6550 #### [facility] [address] [place], [address] FERRITIN Collected: 04/29/2018 Status: F Source: [place] 4:01 [facility] REPOSITORY TYPE CODE TESTS RESULT OUT OF REFERENCE UNITS RANGE LAB L503.6550 26-388 ng/mL Low FERRITIN 24 Performed By: #### L501.5200, L503.6075, L503.6150, L503.6550 #### [facility] [address] [place], [address] PROTHROMBIN TIME W/INR Collected: 04/29/2018 Status: F Source: [place] 4:01 [facility] REPOSITORY TYPE CODE TESTS RESULT OUT OF RANGE REFERENCE UNITS LAB L300.4150 11.7-14.9 SECONDS Normal PROTIME 12.5 LAB L300.4200 Normal INR 0.9 Performed By: #### L300.3900 #### [facility] [address] [place], [address] VITAMIN B12 Collected: 04/29/2018 Status: F Source: [place] 4:01 [facility] REPOSITORY TYPE CODE TESTS RESULT OUT OF RANGE REFERENCE UNITS LAB L503.0105 211-911 pg/mL Normal Vitamin B12 287 Performed By: #### L503.0105 #### [facility] [address] [place], [address] TYPE AND SCREEN Collected: 04/29/2018 Status: F Source: [place] 4:01 [facility] REPOSITORY Order Comment: Reason for Type AND Screen/Red Cells: HEMORRHAGE, GI BLEED TYPE CODE TESTS RESULT OUT OF RANGE REFERENCE UNITS LAB B10.0800 A Normal BLOOD TYPE GEL POSITIVE LAB B100.4000 Normal Antibody NEGATIVE Screen Performed By: #### B101.7450 #### [facility] [address] [place], [address] FOLATES, RBC Collected: 04/29/2018 Status: F Source: [place] 4:01 [facility] REPOSITORY TYPE CODE TESTS RESULT OUT OF RANGE REFERENCE UNITS LAB L3100.1735 Not Estab. ng/mL Normal 473.5 FOL,HEMOLYSA TE LAB L3100.1740 37.5-51.0 % Normal 38.6 FOLR,HEMATOC RIT LAB L3100.1745 >498 ng/mL Normal FOLATE, 1227 RBC Result Comment: Performed at: - [facility] [address], [place], [place] [id number] Host And Hostess: Escobar Cade PhD, Phone: [phone] Performed By: #### L3100.1725 #### [facility] (refer to report for specific site) refer to report for address and phone number EMERGENCY DEPARTMENT Observed: 04/29/2018 Status: F Source: [place] SUMMARY 2:33 PM [facility] REPOSITORY [facility] Medical Records Department [address] [facility] [place] [address] Emergency Department Summary 04/29/18 1317 MR#: [id number] Acct: [id number] Name: SHAYAN CULVER Rep #: [id number] : 1950 67 From: Orville Fournier MD PCP: Laura Grove MD Status: REG ER - ER Visit Summary Date of Service: 04/29/18 Chief Complaint: Abdominal pain History of Present Illness: The patient is a 67 M who presents with abdominal pain as well as bright red blood per rectum. Started 2 days ago. He said he was having abdominal pain and cramping. 2 days ago he had bright red blood per rectum when he had a bowel movement. Yesterday and today he has had black and brown mixed in his stools. He still has some lower abdominal cramping but it is much improved. He states he was on arthritis pills but took all 60 of them and has not started them back for the past 5 days. He has no history of hemorrhoids or any bleeding. He is on aspirin and Plavix for coronary artery disease. Physical Examination: Vital signs reviewed. HEENT exam unremarkable. Heart is regular rate and rhythm without murmurs. Lungs are clear to auscultation. Abdomen is soft and nontender. He does have multiple scars on the abdomen. Extremities reveal no edema. Skin exam normal. Neurologic exam normal. Test Results: Hemoglobin 11.7, potassium 2.9, BUN 20. CAT scan of the abdomen and pelvis reveals a midline hernia with some small bowel but there is no evidence of obstruction. Emergency Department Course and Treatment: Patient's hemoglobin has decreased. It was 15 last year. The etiology of his GI bleed may be from taking all of the arthritis pills. He may have developed an ulcer. Patient will be given Protonix here. Discussed with Dr. Mendes and he will be available to see the patient as needed. Patient was also discussed with hospitalist for admission Treatment Plan: [] Disposition: Admit Impression: GI bleed This note was generated with Skyt[employer] dictation software. It may contain incorrect words, spelling, and punctuation that were not noted in review of the chart prior to signing ED Disposition - Plan for ED Patient: Chief Complaint: GI Bleed Referrals: Laura Grove MD [Primary Care Provider] - What to do if you have Problems For any increased pain, shortness of breath, bleeding, nausea or vomiting, chest pain, or any unexpected problems, contact your Primary Care Provider. Call [facility] ([phone]) or report to the closest Emergency Room. Call 911 if necessary. 04/29/18 1433 <Electronically signed by Orville Fournier MD> Date Orville Fournier MD Cosigner Signature (If Indicated): Date CC: Laura Grove MD CBC W/DIFF, AUTOMATED Collected: 04/29/2018 Status: F Source: [place] 1:25 PM [facility] REPOSITORY TYPE CODE TESTS RESULT OUT OF RANGE REFERENCE UNITS LAB L100.1000 4.4-11.0 K/mm3 Normal WBC 7.3 LAB L100.1200 4.6-6.2 M/mm3 Low RBC 3.65 LAB L100.1300 13.0-16.5 g/dl Low HGB 11.7 LAB L100.1400 40-54 % Low HCT 35.0 LAB L100.1500 80-94 fL High MCV 95.9 LAB L100.1600 27.0-32.0 pg High MCH 32.1 LAB L100.1700 32-36 g/gl Normal MCHC 33.4 LAB L100.1810 11.6-14.6 % High RDW CV 15.2 LAB L100.1820 35.1-43.9 fl High RDW SD 52.9 LAB L100.1900 150-450 K/mm3 Normal PLT 215 LAB L100.2000 6.2-12.0 fl Normal MPV 9.2 LAB L100.2100 47-70 % High NEUT% 72.7 LAB L100.2200 19-41 % Low LY% 15.9 LAB L100.2300 0-10 % Normal MONO% 9.0 LAB L100.2400 0-5 % Normal EO% 1.9 LAB L100.2500 0-1 % Normal BASO% 0.4 LAB L100.2550 0.0-0.9 % Normal IM GRAN % 0.100 Result Comment: IG% - Immature Granulocytes (promyelocytes, myelocytes and metamyelocytes) > 1% indicates that a LEFT SHIFT is Present. LAB L100.2620 2.0-7.7 X10 3/uL Normal Absolute Neut 5.3 LAB L100.2720 0.83-4.51 X10 3/ul Normal Absolute Lymph 1.17 Performed By: #### L100.0100 #### [facility] [address] [place], [address] COMPREHENSIVE METABOLIC Collected: 04/29/2018 Status: F Source: [facility] 1:25 [facility] REPOSITORY TYPE CODE TESTS RESULT OUT OF RANGE REFERENCE UNITS LAB L501.0100 74-106 mg/dL Normal GLU 87 Result Comment: Please note revised GLUCOSE reference range effective 2017. LAB L501.1000 7-18 mg/dL High BUN 20 LAB L501.1100 0.70-1.30 mg/dL Normal CREAT,SERUM 1.21 Result Comment: The validity of the calculated GFR AND GFRAA in patients over 70 years has not been determined. Clinical correlation is essential. LAB L501.1110 >60 mL/min Normal EST GFR 64 Result Comment: Non- GFR Calc LAB L501.1115 >60 mL/min Normal EST GFR - AA 77 Result Comment: GFR Calc LAB L501.1255 ml/min Normal Estimated CRCL 66.80 LAB L501.1300 10-20 RATIO Normal BUN/CRE 16.5 LAB L501.1500 6.4-8. g/dL Normal 2 T PROT 6.5 LAB L501.1800 3.2-5. g/dL Low 0 ALB 3.1 LAB L501.1950 2.2-4. g/dL Normal 2 GLOB 3.4 LAB L501.2000 0.9-2. RATIO Normal 4 A/G 0.9 LAB L501.2200 8.5-10 mg/dL Low .1 CA 8.2 LAB L501.4100 15-37 U/L Low AST 13 LAB L501.4305 45-117 U/L Normal ALK P 65 LAB L501.4405 16-61 U/L Normal ALT 16 LAB L501.4600 0.20-1 mg/dL Normal .00 T BILI 0.50 LAB L501.5300 136-14 mmol/L Normal 5 NA 143 LAB L501.5600 3.5-5. mmol/L Low 1 K 2.9 LAB L501.5900 98-107 mmol/L Normal CL 106 LAB L501.6100 21.0-3 mmol/L Normal 2.0 CO2 29.0 LAB L501.6200 5-15 Normal GAP 8 Performed By: #### L500.4050 #### [facility] [address] [facility] [place], [address] ABDOMEN/PELVIS WITHOUT Observed: 04/29/2018 Status: F Source: [place] CONT 1:16 PM [facility] REPOSITORY [facility] Imaging Services [address] [place] [address] Abdomen/Pelvis without Cont MR#: [id number] Acct: [id number] Name: SHAYAN CULVER Rep #: [id number] : 1950 M 67 From: Mckay Blackwood MD PCP: Laura Grove MD Status: REG ER Study: Abdomen/Pelvis without Cont Date of Exam: 04/29/18 Exam# [id number] Ordering Dr: Orville Fournier MD STUDY: CT ABDOMEN AND PELVIS WITHOUT CONTRAST REASON FOR EXAM: Male, 67 years old. Abdominal pain. Bloody diarrhea. Prior gastric bypass surgery and abdominal aortic aneurysm repair. RADIATION DOSAGE (If Supplied By Facility): CTDIvol = ( 9.35 ) mGy, DLP = ( 450.76 ) mGycm TECHNIQUE: Transaxial images were obtained from the dome of the diaphragm to the symphysis pubis without oral contrast, and without intravenous contrast. Sagittal and coronal images were reconstructed. Individualized dose optimization techniques were used for this CT. COMPARISON: Comparison is made with prior examination dated July 05, 2017. FINDINGS: The visualized lung bases are unremarkable. Coronary artery calcification. There is a 8.7 mm cyst in the superior aspect of the right lobe of the liver. There are surgical clips in the gallbladder fossa consistent with a prior cholecystectomy. Normal spleen. Normal pancreas. Normal bilateral adrenal glands. Stable 3.3 cm x 2.6 m cyst in the lateral inferior portion of the right kidney. Normal left kidney. Status post subtotal gastrectomy. Anastomosis clips are seen in the distal small bowel and right hemicolon as well as in the mid left small bowel loops. These are unchanged. Scattered sigmoid diverticula. There are surgical clips in the region of the appendix consistent with a prior appendectomy. There is scattered atherosclerotic calcification of the abdominal aorta, without a demonstrated aneurysm. Normal inferior vena cava. Normal retroperitoneum. Normal urinary bladder. There is evidence of an umbilical hernia containing nondilated small bowel loops. There are diffuse degenerative changes of the visualized lumbar spine. CT/Abdomen/Pelvis without Cont IMPRESSION: Midline ventral hernia containing nondilated small bowel loops. Postsurgical changes in the stomach as well as in the small bowel and colon. There has been no change. Electronically Signed: Mckay Blackwood MD at 14:07 EDT Tel [phone], Service support , CC: Laura Grove MD; Orville Fournier MD Whip Operator: Signed CARDIOLOGY VISIT Observed: 04/29/2018 Status: F Source: [place] REPORT 9:55 AM [facility] REPOSITORY [facility] [address] [place] [address]. [address] [place] [address] OFFICE VISIT Date of Service: 04/29/18 MR#: [id number] Acct: [id number] Name: SHAYAN CULVER Rep #: [id number] : 1950 Provider: Terry Dunbar MD Age/Sex: 67/M Location: [facility] Status: Signed HPI HPI Chief Complaint: Follow up visit Details: SHAYAN CULVER, is a 67 M who presents to the office today for a cardiovascular outpatient follow-up. He has a history of coronary artery disease status post bypass surgery in 2012 with LEVINE to the LAD, SVG to diagonal branch, and SVG to posterior descending artery of the RCA. He also has a history of bilateral carotid stenosis status post bilateral carotid stenting in 2018, labile hypertension, hyperlipidemia, and throat cancer s/p radiation therapy in the past. He has complained of some intermittent chest discomfort which has occurred 3 times. He has had no dizziness or diaphoresis no near syncope or syncope. He also complains of some black tarry stools as well as reddish discoloration of his stools. He is also had difficulty clearing his throat. He has not had any deena syncopal episodes. His physical exam here today demonstrates clear lung haines regular rate and rhythm no carotid bruit no pedal edema his electrocardiogram done demonstrates normal sinus rhythm with a rate of 95 bpm and no acute changes noted. Intake Vital Signs04/29/18 Height 6 ft 1 in 04/29/18 Weight: 200 lb 04/29/18 Body Mass Index (BMI) 26.4 04/29/18 Blood Pressure 168/98 H Intake Visit Reasons: chest pain [id number] Consultant Required: No Accompanied by: none Is patient in pain?: Yes Allergies ciprofloxacin [From Cipro] Adverse Reaction (Verified 04/29/18 09:38) Vomiting ciprofloxacin HCl [From Cipro] Adverse Reaction (Verified 04/29/18 09:38) Vomiting metronidazole [From Flagyl] Adverse Reaction (Verified 04/29/18 09:38) Vomiting morphine Adverse Reaction (Verified 04/29/18 09:38) Other ofloxacin [From Floxin] Adverse Reaction (Verified 04/29/18 09:38) Vomiting Medications Aspirin [Aspirin, Baby] 81 mg PO DAILY@0800 10/12/15 [History Confirmed 04/29/18] Clopidogrel Bisulfate [Plavix] 75 mg PO DAILY 10/12/15 [History Confirmed 04/29/18] Levothyroxine [Synthroid] 75 mcg PO DAILY 10/12/15 [History Confirmed 04/29/18] Albuterol Inhaler [Ventolin Hfa] 1 puff INHALATION Q4H PRN PRN 12/03/16 [History Confirmed 04/29/18] Potassium Chloride [K-Dur] 20 meq PO BIDCM #60 tab 12/05/16 [Rx Confirmed 04/29/18] sertraline 50 mg tablet 50 mg PO QDAY 08/01/17 [History Confirmed 04/29/18] atorvastatin 20 mg tablet 20 mg PO QDAY 02/03/18 [History Confirmed 04/29/18] fludrocortisone 0.1 mg tablet 0.1 mg PO QDAY 02/03/18 [History Confirmed 04/29/18] prednisone 5 mg tablet 5 mg PO BID 02/03/18 [History Confirmed 04/29/18] sodium di- and monophosphate-potassium phos monobasic 250 mg tablet 1 tab PO TID tab 02/03/18 [History Confirmed 04/29/18] guaifenesin ER 1,200 mg tablet, extended release 12 hr 1,200 mg PO Q12H 04/03/18 [History Confirmed 04/29/18] meclizine 12.5 mg tablet 12.5 mg PO BID-TID PRN 04/03/18 [History Confirmed 04/29/18] multivitamin tablet 1 tab PO DAILY 04/03/18 [History Confirmed 04/29/18] naproxen 500 mg tablet 500 mg PO BID 04/03/18 [History Confirmed 04/29/18] [facility] Medical History Dyspnea on exertion (Chronic) Fatigue (Chronic) Atherosclerosis of [place] coronary artery of [place] heart without angina pectoris (Chronic) Syncope (Chronic) Bilateral carotid artery stenosis (Chronic) Hypertension (Chronic) Hyperlipidemia (Chronic) Adrenal insufficiency (Chronic) Hypophosphatemia (Acute) Generalized weakness (Chronic) Hypokalemia (Acute) Non compliance w medication regimen (Chronic) Orthostatic hypotension (Chronic) Hypoxemia (Acute) Asthma (Chronic) Depression (Chronic) Tonsillar cancer (Chronic) Hypothyroidism (Chronic) Surgical History History of gastric bypass (Chronic) History of coronary artery bypass graft (Chronic 02/26/15) Family History Mother CAD (coronary artery disease) Lung cancer Father Alcoholism Brother Diabetes Hypertension Social History Smoking Status: Former smoker quit date: 05/05/15 pack-years: 90 alcohol intake: never substance use type: does not use caffeine: Yes Type: coffee Number of servings: 1 what type of physical activity do you participate in: none seatbelt use: always do you feel safe at home: Yes ROS Const Const: Negative for fatigue, weakness, night sweats, excessive sweating, frequent falls, headache(s) or daytime sleepiness Eyes Eyes: Negative for loss of peripheral vision, transient loss of vision, blind spots, double vision or blurry vision ENT ENT: Negative for headache(s), dizziness, balance problems, Nosebleed/epistaxis, tongue swelling or lip swelling Cardio Chest Pain: Yes Frequency: daily Character: sharp Onset: at rest, exercise Location: mid sternal Duration: minutes Exacerbation: rest, exercise Palpitations: No Edema: None Muscle aches with walking: None Resp Respiratory: Negative for SOB at rest, SOB orthopnea\SOB lying down, Cough, paroxysmal nocturnal dyspnea or SOB with activity GI GI: Negative nausea, vomiting, heartburn, black,tarry stools or bright, red blood in stools : Negative for hematuria Musc Musc: Negative for balance problems, muscle aches/ myalgia, muscle weakness or joint pain Skin Skin: Negative non-healing lesions, unusual bruising or rash Neuro Neuro: Negative for weakness, frequent falls, headache(s), double vision, dizziness, lightheadedness, orthostatic symptoms, blurry vision or lack of coordination Fercho Hematologic/Lymphatic: Negative for easy bruising or easy bleeding Endo Endo: Negative for fatigue, excessive sweating, cold intolerance, heat intolerance, increased thirst/drinking or hair loss Psych Psych: Negative for anxiety or depression Allergy Allergy/Immunology: Negative for throat swelling, Negative for tongue swelling, Negative for hives, Negative for rash, Negative for lip swelling Cardiology Exam Const Appearance: cooperative, healthy appearing, well developed, well groomed and no acute distress Nutritional Appearance: well nourished and average body habitus Orientation: alert, awake and oriented x3 Head Head: normal to inspection, normocephalic and atraumatic Ears: hearing grossly normal bilaterally and external ears normal Nose: external nose normal, nasal mucous membranes and turbinates normal, nares normal, septum normal, no nasal discharge Face and Sinus: face symmetric Mouth: oral mucosae normal, tongue normal, oropharynx normal and moist mucous membranes Teeth and gingiva: dentition normal Throat: posterior oropharynx normal, tonsils normal and uvula midline Eyes General: appearance normal, both eyes and all related structures Eyelids: eyelids normal Conjunctivae: conjunctivae normal Pupils: PERRL, normal by confrontation and accommodation normal EOM: EOM intact bilaterally Neck Neck: normal visual inspection, trachea midline and no JVD JVD: +5 Carotids: normal carotid upstroke and bounding pulses Chest Chest inspection: normal inspection of the chest, symmetric chest movement and normal respiratory effort Auscultation: Bilateral: Clear to Auscultation Cardio Palpation: normal PMI Rate: regular rate Rhythm: regular rhythm Heart sounds: S1 normal, S2 normal and normal, physiologic split S2; negative rub, gallop or murmur GI GI: normal to inspection, soft, no hepatosplenomegaly and bowel sounds present Neuro General: alert, awake, oriented x3, no focal sensory deficit, gait normal and moves all extremities Skin Skin: no rashes or lesions noted Extremities Pulses: Normal: Right Femoral Pulse, Left Femoral Pulse, Right Dorsalis Pedis Pulse, Left Dorsalis Pedis Pulse, Right Posterior Tibial Pulse, Left Posterior Tibial Pulse, Right Radial Pulse, Left Radial Pulse Lower Extremity Edema: None: Bilateral Musculoskel Musculoskeletal: No joint tenderness Psych Psychological: normal affect Assessment AND Plan 1. History of coronary artery bypass graft Z95.1 LEVINE-LAD, SVG to diag and LCx. SVG to PDA of RCA 02/26/2013 @ [facility]; Plan He does have a history of coronary bypass grafting his last test in August 2017 demonstrated evidence of basal lateral infarct with no evidence of ischemia at this time with his chest discomfort I do not think this is anginal but I would like to obtain a troponin his EKG is reassuring. Orders Orders: 2. Hypertension I10 Plan He does have labile blood pressures and as you know at this time his blood pressure is a little elevated which is not terribly unusual for him we will continue to follow him and have him monitor his blood pressures carefully. 3. Bilateral carotid artery stenosis I65.23 Plan He does have a history of bilateral carotid stenosis status post bilateral stenting he will continue to follow-up with the vascular surgeon regarding the above. 4. GI bleed K92.2 Plan He appears to be having a GI bleed and I would like us to obtain a CBC to make sure there is not a significant amount of bleed. He is on naproxen which I am suggesting to him that he discontinue. Depending on the results further recommendations will be made. I have however asked him to check in with you later this week. Plan Detail Other Orders Orders: Follow Up 6 Months (jhr) Coding Level of Care Code Off vis,est,level 4 Diagnoses History of coronary artery bypass graft Z95.1 Hypertension I10 Bilateral carotid artery stenosis I65.23 GI bleed K92.2 Coding Level of Care Code Off vis,est,level 4 Diagnoses History of coronary artery bypass graft Z95.1 Hypertension I10 Bilateral carotid artery stenosis I65.23 GI bleed K92.2 04/29/18 0955 <Electronically signed by Terry Dunbar MD> Date Terry Dunbar MD Cosigner Signature: Date (if applicable) CC: Laura Grove MD PROGRESS Observed: 04/17/2018 Status: COMPLETED Source: [place] 1:23 PM [facility] [place] REPOSITORY O ID: [id number] Author: Jeremias Burns Service: (none) Author Type: Nurse Practitioner Type: Progress Notes Filed: 04/17/2018 5:22 PM Note Text: CC: Patient presents with: Depression: getting worse Dizziness Fatigue Abdominal Pain: x 2-3 weeks; feels this is due to carrying a ladder HPI Shayan Culver is a 67 year old male who presents today for complaints of depression, dizziness, fatigue and abdominal pain x2-3 weeks. Patient reports he is feeling very depressed with associated fatigue and feelings of dizziness or being overwhelmed for which his Antivert is not helping. He states if too many things are thrown at him or too many people are talking to him he becomes overwhelmed, feels dizzy and almost confused. He reports his appetite is down since our last visit and has lost ~6lbs over the past 2 weeks. He is currently on Zoloft 100mg total. he was previously put on Wellbutrin for worsening depression this summer but self discontinued. He is interested in restarting medication. He also notes he should be enjoying life at this point but he has to deal with his meth head son and narc head daughter. He son currently lives with he and his . He reports he has survived cancer and surgeries but is unable to celebrate anything positive. Denies any SI/HI. Abdominal Pain: Constant nausea or irritated feeling in the mid abdomen. Denies fevers or chills. On Nexium for GERD for which he is compliant. Requesting carafate as that has helped in the past following all of his abdominal surgeries. No vomiting, diarrhea, black or bloody stools. Patient also notes continued cough since our last visit ~2 weeks ago. Completed course of treatment with no improvement. REVIEW OF SYSTEMS General: no fevers, no chills, no night sweats, no recurrent infections and See HPI Respiratory: no wheezing, no shortness of breath, no hemoptysis, See HPI Cardiovascular: no chest pain, no chest pressure, no palpitations and no swelling GI: See HPI Psych: See HPI PAST MEDICAL HISTORY Diagnosis Date - BPH (benign prostatic hyperplasia) - CAD (coronary artery disease) - Carotid stenosis L>R - COPD (chronic obstructive pulmonary disease) ([facility]) - Essential hypertension, benign Labile hyper and hypotensive - GERD (gastroesophageal reflux disease) 2012 - History of gastric bypass - Hyperlipidemia - Hypothyroidism - Major depressive disorder, single episode, moderate (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) 02/2013 CABG x 4 - Orthostatic hypotension - Reflux esophagitis Confirmed by Ba swallow. - Seasonal allergies Dr. Espana. - Stroke (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 - Unspecified asthma(493.90) - Vertebral artery occlusion left - Vitamin D deficiency 2012 PAST SURGICAL HISTORY Procedure Laterality Date - APPENDECTOMY 1961 - CABG (4) VEIN GRAFTS AND ARTERIAL GRAFT(S) 02/26/13 - CAROTID STENT PLACEMENT-INTRAOP Right 12/06/2017 - COLONOSCOP W/ OR W/O BRS SPEC 09/15/13 few diverticula - 10 year follow up - COLONOSCOPY several - EGD W/O [facility] SPECIMEN W/BX 09/15/13 gastritis, gastric band in place, thin PEG site - EGD W/O OR W/BRUSH/WASH 03/28/2010 EGD - EGD W/O OR W/BRUSH/WASH 05/07/2017 EGD - HEART CATHETERIZATION 09/01/14 diffuse disease, no revascularizable target - HEART SURGERY HX - KIDNEY SURGERY HX - PAST SURGICAL HISTORY OF ~1977 kidney stones - PAST SURGICAL HISTORY OF 1976 intestinal bypass - PAST SURGICAL HISTORY OF ~1977 partial intestinal bypass reversal - PAST SURGICAL HISTORY OF 1994 gastric banding - PAST SURGICAL HISTORY OF 01/18/2005 throat cancer - PAST SURGICAL HISTORY OF 11/08/2017 Lt carotid arteriogram with stenting - PEG TUBE 03/20/2005 removed after 1 1/2y - REMOVAL GALLBLADDER ~1977 - XRAY CHEST 1 VIEW 06/06/15 hyperinflation and scarring ALLERGIES Floxin [Ofloxacin]; Flagyl [Metronidazole Hcl]; Ciprofloxacin; Morphine MEDICATIONS fluconazole (DIFLUCAN) 200 mg tablet TAKE 2 TABLETS BY MOUTH ON DAY 1, THEN TAKE ONE TABLET DAILY FOR 13 DAYS predniSONE (DELTASONE) 10 mg tablet Take 40 mg x 3 days, 20 mg x 3 days, 10 mg x 3 days. Take with food, once daily fluticasone (FLONASE) 50 mcg/actuation nasal spray Use 2 Sprays in each nostril once daily. Rinse mouth after use. fludrocortisone (FLORINEF) 0.1 mg tablet Take 1 tablet by mouth twice daily. Prescribed by cardiology. naproxen (NAPROSYN) 500 mg tablet Take 1 tablet by mouth twice daily as needed (for pain/inflammation). Take with food. esomeprazole (NEXIUM) 40 mg capsule Take 1 capsule by mouth daily before breakfast. 1/2 hr before meal. clopidogrel (PLAVIX) 75 mg tablet Take 1 tablet by mouth once daily. ranitidine (ZANTAC) 150 mg tablet Take 1 tablet by mouth twice daily. albuterol HFA (VENTOLIN HFA) 90 mcg/actuation inhaler Inhale 2 Puffs as instructed every 4 hours as needed for Wheezing/Shortness of Breath. guaiFENesin (MUCINEX) 1,200 mg Ta12 Take 1 tablet by mouth once daily. meclizine (ANTIVERT) 12.5 mg tab Take 1 tablet by mouth twice daily. levothyroxine (SYNTHROID) 75 mcg tablet Take 1 tablet by mouth once daily. sertraline (ZOLOFT) 100 mg tablet Take 0.5 tablets by mouth twice daily. atorvastatin (LIPITOR) 20 mg tablet Take 1 tablet by mouth once daily. aspirin 325 mg tablet Take 81 mg by mouth once daily. potassium chloride (K-TAB) 10 mEq tablet Take 1 tablet by mouth daily with breakfast. MULTIVITAMIN TAB Take one(1) tablet daily. FAMILY HISTORY Problem Relation Age of Onset - Diabetes Mother - Coronary Artery Disease Mother - Psychiatry Mother depression - Cancer Mother lung - Cancer Father esophagus - Asthma Father - other (esophageal cancer) Father - Diabetes Brother - Alcohol/Drug Maternal Uncle - Alcohol/Drug Maternal Grandfather - Coronary Artery Disease Maternal Grandfather - Heart Maternal Grandfather - Alcohol/Drug Brother - Cancer Maternal Uncle throat - Coronary Artery Disease Maternal Aunt - Diabetes Maternal Grandmother - Diabetes Paternal Grandmother - Diabetes Maternal Aunt x2 - Heart Maternal Aunt x2 Social History Substance Use Topics - Smoking status: Never Smoker - Smokeless tobacco: Never Used Comment: Parents smoked in childhood. Spouse smokes. - Alcohol use No PHYSICAL EXAM BP 160/102 Pulse 96 Temp 36.9 ?C (98.5 ?F) Resp 16 Wt 88 kg (194 lb) SpO2 97% BMI 26.31 kg/m? General Appearance: in no acute distress, alert, thin Pysch: mood and affect flat and restricted Skin: Skin color, texture, turgor normal for age; Head: normocephalic, atraumatic Lungs: Negative findings: normal respiratory rate and rhythm and no chest deformities noted, Positive findings: wheezing , rhonchi Heart: RRR without murmur, gallop, or rubs. No ectopy Abdomen: Abdomen soft, Bowel sounds normal. No masses, organomegaly, Positive findings: tenderness mild epigastric DTAP,TDAP,TD(1 - Tdap) due on 11/13/1971 HEPATITIS C SCREENING due on 1996 PNEUMOVAX AGE 65 AND OVER WITH 5YR LOOKBACK(1) due on 2017 INFLUENZA(1) due on 04/05/2018 STATIN MED ADHERENCE due on 05/05/2018 STEROID INHALER PRESCRIBED due on 05/05/2018 LDL CHOLESTEROL due on 12/12/2018 ANNUAL PCP TEAM CHRONIC DISEASE VISIT due on 04/02/2019 BP CONTROLLED (<130/80) due on 04/02/2019 DIABETES SCREEN due on 01/31/2021 LIPID SCREEN due on 12/12/2022 COLORECTAL CANCER SCREENING,SEE MODIFIER due on 09/15/2023 PROSTATE CANCER SCREENING DISCUSSION Completed ADULT PREVNAR-13 Completed ASSESSMENT/PLAN: 1. Moderate episode of recurrent major depressive disorder (HCC) - ICD9: 296.32, ICD10: F33.1 (primary diagnosis) - Continue Zoloft, add Wellbutrin - BUPROPION XL 150 MG TAB - HYDROXYZINE PAMOATE 25 MG CAPSULE - Follow up in 3 weeks 2. Dizziness and giddiness - ICD9: 780.4, ICD10: R42 - BUPROPION XL 150 MG TAB - HYDROXYZINE PAMOATE 25 MG CAPSULE 3. Epigastric pain - ICD9: 789.06, ICD10: R10.13 Etiology unclear Differential Diagnosis includes GERD, PUD and anxiety - Begin treatment with carafate TID - Follow up in 3 weeks or sooner if worsening of symptoms - SUCRALFATE 1 GRAM TABLET 4. Cough - ICD9: 786.2, ICD10: R05 - Concerned for silent aspiration vs aspiration pneumonia - Patient declined repeat MBS as he doesn't intend to follow a thickened liquid diet should it be recommended, strongly encouraged patient to reconsider. He plans to discuss with and notify office if he changes his mind - Consider starting Doxycycline if no symptom improvement in 3-5 days Jeremias Burns APRN.[id number] M60 [employer] Prescription instructions reviewed with patient as applicable. Potential red flag symptoms discussed with the patient. Reviewed appropriate action plan to take if red flag symptoms occur. Patient agreeable to treatment plan. YESSY Observed: 04/17/2018 Status: COMPLETED Source: [place] 1:20 PM [facility] REPOSITORY Office Visit (INTMWS) SHAYAN CULVER ([id number]) 1950 M Date Time Provider Department 04/17/18 1:20 PM JEREMIAS BURNS (CLARA) INTQueenieWS During your visit today, we recorded the following information about you: Temperature Pulse Respiration Blood pressure 98.5 degrees 96/minute 16/minute 160/102 Weight 88 kg Jeremias Burns APRN.CNP 04/17/2018 5:22 PM Signed CC: Patient presents with: Depression: getting worse Dizziness Fatigue Abdominal Pain: x 2-3 weeks; feels this is due to carrying a ladder HPI Shayan Culver is a 67 year old male who presents today for complaints of depression, dizziness, fatigue and abdominal pain x2-3 weeks. Patient reports he is feeling very depressed with associated fatigue and feelings of dizziness or being overwhelmed for which his Antivert is not helping. He states if too many things are thrown at him or too many people are talking to him he becomes overwhelmed, feels dizzy and almost confused. He reports his appetite is down since our last visit and has lost ~6lbs over the past 2 weeks. He is currently on Zoloft 100mg total. he was previously put on Wellbutrin for worsening depression this summer but self discontinued. He is interested in restarting medication. He also notes he should be enjoying life at this point but he has to deal with his meth head son and narc head daughter. He son currently lives with he and his . He reports he has survived cancer and surgeries but is unable to celebrate anything positive. Denies any SI/HI. Abdominal Pain: Constant nausea or irritated feeling in the mid abdomen. Denies fevers or chills. On Nexium for GERD for which he is compliant. Requesting carafate as that has helped in the past following all of his abdominal surgeries. No vomiting, diarrhea, black or bloody stools. Patient also notes continued cough since our last visit ~2 weeks ago. Completed course of treatment with no improvement. REVIEW OF SYSTEMS General: no fevers, no chills, no night sweats, no recurrent infections and See HPI Respiratory: no wheezing, no shortness of breath, no hemoptysis, See HPI Cardiovascular: no chest pain, no chest pressure, no palpitations and no swelling GI: See HPI Psych: See HPI PAST MEDICAL HISTORY Diagnosis Date - BPH (benign prostatic hyperplasia) - CAD (coronary artery disease) - Carotid stenosis L>R - COPD (chronic obstructive pulmonary disease) (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) 02/2013 CABG x 4 - Orthostatic hypotension - Reflux esophagitis Confirmed by Ba swallow. - Seasonal allergies Dr. Espana. - Stroke (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 - Unspecified asthma(493.90) - Vertebral artery occlusion left - Vitamin D deficiency 2012 PAST SURGICAL HISTORY Procedure Laterality Date - APPENDECTOMY 1961 - CABG (4) VEIN GRAFTS AND ARTERIAL GRAFT(S) 02/26/13 - CAROTID STENT PLACEMENT-INTRAOP Right 12/06/2017 - COLONOSCOP W/ OR W/O BRS SPEC 09/15/13 few diverticula - 10 year follow up - COLONOSCOPY several - EGD W/O [facility] SPECIMEN W/BX 09/15/13 gastritis, gastric band in place, thin PEG site - EGD W/O OR W/BRUSH/WASH 03/28/2010 EGD - EGD W/O OR W/BRUSH/WASH 05/07/2017 EGD - HEART CATHETERIZATION 09/01/14 diffuse disease, no revascularizable target - HEART SURGERY HX - KIDNEY SURGERY HX - PAST SURGICAL HISTORY OF ~1977 kidney stones - PAST SURGICAL HISTORY OF 1976 intestinal bypass - PAST SURGICAL HISTORY OF ~1977 partial intestinal bypass reversal - PAST SURGICAL HISTORY OF 1994 gastric banding - PAST SURGICAL HISTORY OF 01/18/2005 throat cancer - PAST SURGICAL HISTORY OF 11/08/2017 Lt carotid arteriogram with stenting - PEG TUBE 03/20/2005 removed after 1 1/2y - REMOVAL GALLBLADDER ~1977 - XRAY CHEST 1 VIEW 06/06/15 hyperinflation and scarring ALLERGIES Floxin [Ofloxacin]; Flagyl [Metronidazole Hcl]; Ciprofloxacin; Morphine MEDICATIONS fluconazole (DIFLUCAN) 200 mg tablet TAKE 2 TABLETS BY MOUTH ON DAY 1, THEN TAKE ONE TABLET DAILY FOR 13 DAYS predniSONE (DELTASONE) 10 mg tablet Take 40 mg x 3 days, 20 mg x 3 days, 10 mg x 3 days. Take with food, once daily fluticasone (FLONASE) 50 mcg/actuation nasal spray Use 2 Sprays in each nostril once daily. Rinse mouth after use. fludrocortisone (FLORINEF) 0.1 mg tablet Take 1 tablet by mouth twice daily. Prescribed by cardiology. naproxen (NAPROSYN) 500 mg tablet Take 1 tablet by mouth twice daily as needed (for pain/inflammation). Take with food. esomeprazole (NEXIUM) 40 mg capsule Take 1 capsule by mouth daily before breakfast. 1/2 hr before meal. clopidogrel (PLAVIX) 75 mg tablet Take 1 tablet by mouth once daily. ranitidine (ZANTAC) 150 mg tablet Take 1 tablet by mouth twice daily. albuterol HFA (VENTOLIN HFA) 90 mcg/actuation inhaler Inhale 2 Puffs as instructed every 4 hours as needed for Wheezing/Shortness of Breath. guaiFENesin (MUCINEX) 1,200 mg Ta12 Take 1 tablet by mouth once daily. meclizine (ANTIVERT) 12.5 mg tab Take 1 tablet by mouth twice daily. levothyroxine (SYNTHROID) 75 mcg tablet Take 1 tablet by mouth once daily. sertraline (ZOLOFT) 100 mg tablet Take 0.5 tablets by mouth twice daily. atorvastatin (LIPITOR) 20 mg tablet Take 1 tablet by mouth once daily. aspirin 325 mg tablet Take 81 mg by mouth once daily. potassium chloride (K-TAB) 10 mEq tablet Take 1 tablet by mouth daily with breakfast. MULTIVITAMIN TAB Take one(1) tablet daily. FAMILY HISTORY Problem Relation Age of Onset - Diabetes Mother - Coronary Artery Disease Mother - Psychiatry Mother depression - Cancer Mother lung - Cancer Father esophagus - Asthma Father - other (esophageal cancer) Father - Diabetes Brother - Alcohol/Drug Maternal Uncle - Alcohol/Drug Maternal Grandfather - Coronary Artery Disease Maternal Grandfather - Heart Maternal Grandfather - Alcohol/Drug Brother - Cancer Maternal Uncle throat - Coronary Artery Disease Maternal Aunt - Diabetes Maternal Grandmother - Diabetes Paternal Grandmother - Diabetes Maternal Aunt x2 - Heart Maternal Aunt x2 Social History Substance Use Topics - Smoking status: Never Smoker - Smokeless tobacco: Never Used Comment: Parents smoked in childhood. Spouse smokes. - Alcohol use No PHYSICAL EXAM BP 160/102 Pulse 96 Temp 36.9 ?C (98.5 ?F) Resp 16 Wt 88 kg (194 lb) SpO2 97% BMI 26.31 kg/m? General Appearance: in no acute distress, alert, thin Pysch: mood and affect flat and restricted Skin: Skin color, texture, turgor normal for age; Head: normocephalic, atraumatic Lungs: Negative findings: normal respiratory rate and rhythm and no chest deformities noted, Positive findings: wheezing , rhonchi Heart: RRR without murmur, gallop, or rubs. No ectopy Abdomen: Abdomen soft, Bowel sounds normal. No masses, organomegaly, Positive findings: tenderness mild epigastric DTAP,TDAP,TD(1 - Tdap) due on 11/13/1971 HEPATITIS C SCREENING due on 1996 PNEUMOVAX AGE 65 AND OVER WITH 5YR LOOKBACK(1) due on 2017 INFLUENZA(1) due on 04/05/2018 STATIN MED ADHERENCE due on 05/05/2018 STEROID INHALER PRESCRIBED due on 05/05/2018 LDL CHOLESTEROL due on 12/12/2018 ANNUAL PCP TEAM CHRONIC DISEASE VISIT due on 04/02/2019 BP CONTROLLED (<130/80) due on 04/02/2019 DIABETES SCREEN due on 01/31/2021 LIPID SCREEN due on 12/12/2022 COLORECTAL CANCER SCREENING,SEE MODIFIER due on 09/15/2023 PROSTATE CANCER SCREENING DISCUSSION Completed ADULT PREVNAR-13 Completed ASSESSMENT/PLAN: 1. Moderate episode of recurrent major depressive disorder (HCC) - ICD9: 296.32, ICD10: F33.1 (primary diagnosis) - Continue Zoloft, add Wellbutrin - BUPROPION XL 150 MG TAB - HYDROXYZINE PAMOATE 25 MG CAPSULE - Follow up in 3 weeks 2. Dizziness and giddiness - ICD9: 780.4, ICD10: R42 - BUPROPION XL 150 MG TAB - HYDROXYZINE PAMOATE 25 MG CAPSULE 3. Epigastric pain - ICD9: 789.06, ICD10: R10.13 Etiology unclear Differential Diagnosis includes GERD, PUD and anxiety - Begin treatment with carafate TID - Follow up in 3 weeks or sooner if worsening of symptoms - SUCRALFATE 1 GRAM TABLET 4. Cough - ICD9: 786.2, ICD10: R05 - Concerned for silent aspiration vs aspiration pneumonia - Patient declined repeat MBS as he doesn't intend to follow a thickened liquid diet should it be recommended, strongly encouraged patient to reconsider. He plans to discuss with and notify office if he changes his mind - Consider starting Doxycycline if no symptom improvement in 3-5 days Jeremias Burns APRN.M48 M60 [employer] Prescription instructions reviewed with patient as applicable. Potential red flag symptoms discussed with the patient. Reviewed appropriate action plan to take if red flag symptoms occur. Patient agreeable to treatment plan. Referring Provider: LAURA GROVE [[id number]] Allergies As of Date: 04/17/2018 Noted Allergy Reaction FLOXIN (OFLOXACIN) 10/09/2005 1 - Mental Status Change Comments: Severe depression. FLAGYL (METRONIDAZOLE HCL) 01/15/2005 1 - Mental Status Change Comments: Depression. CIPROFLOXACIN 02/16/2013 6 - Diarrhea 16 - Unknown Comments: ? diarrhea. MORPHINE 12/28/2016 1 - Mental Status Change Date Reviewed: 04/17/2018 Reviewed by: Jeremias Starkey LPN - Fully Assessed Reason for Visit: Depression [32] Cmt: getting worse Dizziness [36] Fatigue [46] Abdominal Pain [1] Cmt: x 2-3 weeks; feels this is due to carrying a ladder Primary Visit Diagnosis:Moderate episode of recurrent major depressive disorder (HCC) [F33.1] Other Visit Diagnoses:Dizziness and giddiness [R42] Epigastric pain [R10.13] Cough [R05] Order(s):buPROPion XL (WELLBUTRIN XL) 150 mg 24 hr tabletTake 1 tablet by mouth once daily.Disp: 30 tabletRfl: 0 hydrOXYzine pamoate (VISTARIL) 25 mg capsuleTake 1 capsule by mouth three times daily as needed.Disp: 90 capsuleRfl: 0 sucralfate (CARAFATE) 1 gram tabletTake 1 tablet by mouth three times daily before meals.Disp: 90 tabletRfl: 1 [START ON 04/21/2018] doxycycline monohydrate (MONODOX) 100 mg capsuleTake 1 capsule by mouth twice daily for 7 days.Disp: 14 capsuleRfl: 0 Prescriptions as of 04/17/2018 Sig: PREDNISONE 10 MG TABLET Take 40 mg x 3 days, 20 mg x * FLUTICASONE 50 MCG/ACTUATION * Use 2 Sprays in each nostril * FLUDROCORTISONE 0.1 MG TABLET Take 1 tablet by mouth twice * NAPROXEN 500 MG TABLET Take 1 tablet by mouth twice * ESOMEPRAZOLE MAGNESIUM 40 MG * Take 1 capsule by mouth daily* CLOPIDOGREL 75 MG TABLET Take 1 tablet by mouth once d* ALBUTEROL SULFATE HFA 90 MCG/* Inhale 2 Puffs as instructed * GUAIFENESIN ER 1,200 MG TABLE* Take 1 tablet by mouth once d* MECLIZINE 12.5 MG TABLET Take 1 tablet by mouth twice * LEVOTHYROXINE 75 MCG TABLET Take 1 tablet by mouth once d* SERTRALINE 100 MG TABLET Take 0.5 tablets by mouth twi* ATORVASTATIN 20 MG TABLET Take 1 tablet by mouth once d* ASPIRIN 325 MG TABLET Take 81 mg by mouth once genaro* POTASSIUM CHLORIDE ER 10 MEQ * Take 1 tablet by mouth daily * MULTIVITAMIN TABLET Take one(1) tablet daily. BUPROPION XL 150 MG TAB Take 1 tablet by mouth once d* HYDROXYZINE PAMOATE 25 MG CAP* Take 1 capsule by mouth three* SUCRALFATE 1 GRAM TABLET Take 1 tablet by mouth three * DOXYCYCLINE MONOHYDRATE 100 M* Take 1 capsule by mouth twice* Problem List As Of Date 04/17/2018 Noted Resolved MALIGNANT NEOPL TONSIL [C09.9] INVALID FOR* DIZZINESS AND GIDDINESS [R42] INVALID FOR* More... 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 Depression [F32.9] INVALID FOR* More... GERD (gastroesophageal reflux disease) [K21.9] INVALID FOR* More... Vitamin d deficiency [E55.9] Hyperlipidemia [E78.5] More... Hearing loss [H91.90] INVALID FOR* BPPV (benign paroxysmal positional vertigo) [H8*INVALID FOR* Tonsillar cancer [C09.9] INVALID FOR* CAD (coronary artery disease) [I25.10] More... Carotid artery stenosis, symptomatic [I65.29] More... Encounter for screening colonoscopy [Z12.11] INVALID FOR* Diverticula of colon [K57.30] INVALID FOR* Gastritis [K29.70] INVALID FOR* Irritation around percutaneous endoscopic gastr*INVALID FOR* Essential hypertension, benign [I10] More... Labile blood pressure [R09.89] INVALID FOR* Other pain disorders related to psychological f*INVALID FOR* Adjustment disorder with mixed anxiety and depr*INVALID FOR* Asthma, moderate persistent, poorly-controlled * Arthritis [M19.90] INVALID FOR* More... Orthostatic hypotension [I95.1] INVALID FOR* More... COPD with chronic bronchitis (HCC) [J44.9] INVALID FOR* More... Hypertension [I10] INVALID FOR* More... Environmental allergies [Z91.09] INVALID FOR* More... Complication of gastrostomy tube (HCC) [K94.20] INVALID FOR* Reflux esophagitis [K21.0] More... Essential hypertension [I10] INVALID FOR* Internal carotid artery stenosis, bilateral [I6*INVALID FOR* Malnutrition of mild degree (HCC) [E44.1] INVALID FOR* History of common carotid artery stent placemen*INVALID FOR* History of carotid stenosis [Z86.79] INVALID FOR* Prescriptions ordered this encounter Disp Refills Start End BUPROPION XL 150 MG TAB 30 t* 0 04/17/2018 Route: ORAL Sig: Take 1 tablet by mouth once daily. HYDROXYZINE PAMOATE 25 MG CAPSULE 90 c* 0 04/17/2018 Route: ORAL Sig: Take 1 capsule by mouth three times daily as needed. SUCRALFATE 1 GRAM TABLET 90 t* 1 04/17/2018 Route: ORAL Sig: Take 1 tablet by mouth three times daily before meals. DOXYCYCLINE MONOHYDRATE 100 MG CAPSU* 14 c* 0 04/21/2018 04/28/2018 Route: ORAL Sig: Take 1 capsule by mouth twice daily for 7 days. Medications Discontinued During This Encounter fluconazole (DIFLUCAN) 200 mg tablet 15 t* 0 04/02/2018 04/17/2018 Sig: TAKE 2 TABLETS BY MOUTH ON DAY 1, THEN TAKE ONE TABLET DAILY FOR 13 DAYS Disc: Reason for discontinue is not on file. ranitidine (ZANTAC) 150 mg tablet 60 t* 11 09/18/2017 04/17/2018 Route: ORAL Sig: Take 1 tablet by mouth twice daily. Disc: Reason for discontinue is not on file. Follow-up and Disposition History Recorded Encounter Status:Closed by KATY CLARAJEREMIAS on 04/17/18 CARDIOLOGY VISIT Observed: 04/17/2018 Status: F Source: [place] REPORT 10:35 AM [facility] [place] REPOSITORY [facility] [address] [place] [address] OFFICE VISIT Date of Service: 04/03/18 MR#: [id number] Acct: [id number] Name: SHAYAN CULVER Rep #: [id number] : 1950 Provider: MUKESH Freitas Age/Sex: 67/M Location: [facility] Status: Signed HPI HPI Details: SHAYAN CULVER, is a 67 M who presents to the office today for a cardiovascular outpatient follow-up. He has a history of coronary artery disease status post bypass surgery in 2012 with LEVINE to the LAD, SVG to diagonal branch, and SVG to posterior descending artery of the RCA. He also has a history of bilateral carotid stenosis status post bilateral carotid stenting in 2017, labile hypertension, hyperlipidemia, and throat cancer s/p radiation therapy in the past. Pt. denies chest, arm, jaw, or neck discomfort. His exercise tolerance is stable. Pt. denies symptoms of CHF, palpitations, or syncopal episodes. Pt. denies edema or claudication issues. Pt. denies PND, myalgia, or unexplainable fatigue. He states SOB that he is currently being treated for a sinus infection/drainage. He states lightheadedness and dizziness with pre-syncope sensation with fluctuating blood pressure and recent sinus infection. He uses three pillows to help with GERD. Intake Vital Signs04/03/18 Height 6 ft 1 in 04/03/18 Weight: 199 lb 04/03/18 Body Mass Index (BMI) 26.2 04/03/18 Blood Pressure 210/130 Intake Visit Reasons: concerned re: BP's, orthostatic Sx J2Ee Consultant Required: No Accompanied by: none Is patient in pain?: No Allergies ciprofloxacin [From Cipro] Adverse Reaction (Verified 02/03/18 09:19) Vomiting ciprofloxacin HCl [From Cipro] Adverse Reaction (Verified 02/03/18 09:19) Vomiting metronidazole [From Flagyl] Adverse Reaction (Verified 02/03/18 09:19) Vomiting morphine Adverse Reaction (Verified 02/03/18 09:19) Other ofloxacin [From Floxin] Adverse Reaction (Verified 02/03/18 09:19) Vomiting Medications Aspirin [Aspirin, Baby] 81 mg PO DAILY@0800 10/12/15 [History Confirmed 04/03/18] Clopidogrel Bisulfate [Plavix] 75 mg PO DAILY 10/12/15 [History Confirmed 04/03/18] Levothyroxine [Synthroid] 75 mcg PO DAILY 10/12/15 [History Confirmed 04/03/18] Albuterol Inhaler [Ventolin Hfa] 1 puff INHALATION Q4H PRN PRN 12/03/16 [History Confirmed 04/03/18] Esomeprazole Magnesium [Nexium] 40 mg PO DAILY 12/03/16 [History Confirmed 04/03/18] Potassium Chloride [K-Dur] 20 meq PO BIDCM #60 tab 12/05/16 [Rx Confirmed 04/03/18] sertraline 50 mg tablet 50 mg PO QDAY 08/01/17 [History Confirmed 04/03/18] atorvastatin 20 mg tablet 20 mg PO QDAY 02/03/18 [History Confirmed 04/03/18] fludrocortisone 0.1 mg tablet 0.1 mg PO QDAY 02/03/18 [History Confirmed 04/03/18] prednisone 5 mg tablet 5 mg PO BID 02/03/18 [History Confirmed 04/03/18] sodium di- and monophosphate-potassium phos monobasic 250 mg tablet 1 tab PO TID tab 02/03/18 [History Confirmed 04/03/18] guaifenesin ER 1,200 mg tablet, extended release 12 hr 1,200 mg PO Q12H 04/03/18 [History Confirmed 04/03/18] meclizine 12.5 mg tablet 12.5 mg PO BID-TID PRN 04/03/18 [History Confirmed 04/03/18] multivitamin tablet 1 tab PO DAILY 04/03/18 [History Confirmed 04/03/18] naproxen 500 mg tablet 500 mg PO BID 04/03/18 [History Confirmed 04/03/18] PFSH Medical History Dyspnea on exertion (Chronic) Fatigue (Chronic) Atherosclerosis of [place] coronary artery of [place] heart without angina pectoris (Chronic) Syncope (Chronic) Bilateral carotid artery stenosis (Chronic) Hypertension (Chronic) Hyperlipidemia (Chronic) Adrenal insufficiency (Chronic) Hypophosphatemia (Acute) Generalized weakness (Chronic) Hypokalemia (Acute) Non compliance w medication regimen (Chronic) Orthostatic hypotension (Chronic) Hypoxemia (Acute) Asthma (Chronic) Depression (Chronic) Tonsillar cancer (Chronic) Hypothyroidism (Chronic) Surgical History History of gastric bypass (Chronic) History of coronary artery bypass graft (Chronic 02/26/15) Family History Mother CAD (coronary artery disease) Lung cancer Father Alcoholism Brother Diabetes Hypertension Social History Smoking Status: Former smoker quit date: 05/05/15 pack-years: 90 alcohol intake: never substance use type: does not use caffeine: Yes Type: coffee Number of servings: 1 what type of physical activity do you participate in: none seatbelt use: always do you feel safe at home: Yes ROS Const Const: Negative for weakness, body ache, fever(s), chills or fatigue ENT ENT: Positive for dizziness Cardio Chest Pain: No Palpitations: No Edema: None Muscle aches with walking: None Resp Respiratory: Positive for SOB with activity; negative for SOB at rest, SOB orthopnea\SOB lying down or paroxysmal nocturnal dyspnea GI GI: Negative nausea, black,tarry stools, bright, red blood in stools or vomiting blood/hematemesis : Negative for hematuria or frequent nighttime urination/ nocturia Musc Musc: Negative for muscle aches/ myalgia Skin Skin: Negative non-healing lesions or rash Neuro Neuro: Positive for lightheadedness, near syncope and dizziness; negative for syncope, orthostatic symptoms or weakness Endo Endo: Negative for fatigue Allergy Allergy/Immunology: Negative for rash Cardiology Exam Const Appearance: cooperative, healthy appearing, comfortable and no acute distress Nutritional Appearance: overweight Orientation: alert, awake and oriented x3 Head Head: normal to inspection Ears: hearing grossly normal bilaterally Nose: external nose normal Face and Sinus: face symmetric Mouth: oral mucosae normal Eyes Eyelids: eyelids normal Conjunctivae: conjunctivae normal Pupils: PERRL EOM: EOM intact bilaterally Neck Neck: no JVD and normal visual inspection Carotids: normal carotid upstroke carotid endarterectomy: Bilateral Chest Chest inspection: normal inspection of the chest and normal respiratory effort Auscultation: Bilateral: Clear to Auscultation Cardio Rate: regular rate Rhythm: regular rhythm Heart sounds: S1 normal and S2 normal; negative rub, gallop or murmur GI GI: normal to inspection and hernia Neuro General: alert, awake, oriented x3 and CN's II-XI intact bilaterally Skin Skin: no rashes or lesions noted Extremities Pulses: Normal: Right Posterior Tibial Pulse, Left Posterior Tibial Pulse, Right Radial Pulse, Left Radial Pulse Lower Extremity Edema: None: Bilateral Psych Psychological: normal affect Supplemental Info Echocardiogram from July 2017 showed normal LV size, estimated ejection fraction 55%, and structurally normal valves. Stress test from August 2017 was a pharmacological myocardial perfusion stress test with evidence of basal lateral infarct and no ischemia noted. Assessment AND Plan 1. Atherosclerosis of [place] coronary artery of [place] heart without angina pectoris I25.10 CABG 2012; NSTEMI 08/31/2014; KRYSTIAN Duque Stress test in January 2018 was considered negative for stress- induced myocardial ischemia. Patient denies any chest pain, arm pain, jaw pain, neck pain, shortness of breath, or fatigue suggestive of angina at this time. We will continue to monitor this. We will not make any medication regimen changes and will continue risk factor modification. 2. History of coronary artery bypass graft Z95.1 LEVINE-LAD, SVG to diag and LCx. SVG to PDA of RCA 02/26/2013 @ [facility]; [place] - KRYSTIAN Camacho She will continue current treatment plan as outlined above. 3. Bilateral carotid artery stenosis I65.23 KRYSTIAN Duque He is status post recent stenting to bilateral carotid arteries. He will continue follow-up with Dr. Nieto for this. He will continue current medications. 4. Pure hypercholesterolemia E78.00; E78.0 KRYSTIAN Duque This is managed by primary care physician. We will continue current statin medication. 5. Orthostatic hypotension I95.1 KRYSTIAN Duque Patient's blood pressure continues to be very labile. He states during his carotid stenting he required arterial line due to frequent blood pressure shifts. His blood pressure is elevated today in office. He states this is not unusual for him. He is recently started on oral prednisone due to sinus infection. He was asked to hold his Florinef while taking oral steroids and continue to monitor his blood pressure. Even though his blood pressure is elevated no medications will be added, due to previous attempts causing extreme lows. Hopefully carotid stenting will improve labile blood pressure. Plan Detail Additional Comments - Jacob Freitas FLIGHT ATTENDANT-C Discussed the above patient with Dr. Dunbar, he agrees with the plan of care. Thank you for allowing us to participate in the patients plan of care, if you have any questions please do not hesitate to call. This note was generated using a voice recognition system and there may be incorrect words, spelling or punctuation that were not noted when reviewing the office note prior to saving. Coding Level of Care Code Off vis,est,level 3 Diagnoses Atherosclerosis of [place] coronary artery of [place] heart without angina pectoris I25.10 History of coronary artery bypass graft Z95.1 Bilateral carotid artery stenosis I65.23 Pure hypercholesterolemia E78.00; E78.0 Hyperlipidemia type: pure hypercholesterolemia Orthostatic hypotension I95.1 Coding Level of Care Code Off vis,est,level 3 Diagnoses Atherosclerosis of [place] coronary artery of [place] heart without angina pectoris I25.10 History of coronary artery bypass graft Z95.1 Bilateral carotid artery stenosis I65.23 Pure hypercholesterolemia E78.00; E78.0 Hyperlipidemia type: pure hypercholesterolemia Orthostatic hypotension I95.1 04/03/18 1432 <Electronically signed by Jacob Freitas FLIGHT ATTENDANT-C> Date Jacob Freitas FLIGHT ATTENDANT-C 04/17/18 1035<Electronically signed by Terry Dunbar MD> Cosigner Signature: Date (if applicable) Terry Dunbar MD CC: Laura Grove MD PROGRESS Observed: 04/02/2018 Status: COMPLETED Source: [place] 2:04 PM [facility] [facility] [place] REPOSITORY [facility] ID: [id number] Author: Jeremias Burns Service: (none) Author Type: Nurse Practitioner Type: Progress Notes Filed: 04/02/2018 3:04 PM Note Text: CC: Patient presents with: Cough: Ongoing cough x 4 weeks, finished AIB, patient now has sore throat x 5 days HPI: Shayan Culver is a 67 year old male who presents to the office with complaint of respiratory symptoms, chest congestion, head congestion, cough, productive, wheezing, sore throat, sinus symptoms, ear symptoms, rhinorrhea and waking up with sweats for 2 weeks. Symptoms started with sinus drainage, ear pain and chest congestion. He denies sneezing, hoarse voice, body aches, fever, ear pain, rash, nausea and vomiting . Treatments tried include Guaifenesin/Mucinex, Albuterol once daily MDI/nebulilzer and Excedrin and previously on antibiotics per PCP with no relief of symptoms. Recently finished Zpak and reports no symptom improvement but no worsening of symptoms. Sick contacts: no. Patient denies a history of occasional episodes of bronchitis, pneumonia and COPD. Non-smoker and with a history of seasonal allergies. The ROS is otherwise negative. The patient's pmh, medications, allergies, and past visits are reviewed. PHYSICAL EXAM: BP 114/78 Pulse 78 Temp 36.6 ?C (97.9 ?F) (Temporal Artery) Resp 16 Wt 90.7 kg (200 lb) SpO2 98% BMI 27.12 kg/m? General appearance: tired/ill appearing, alert, cooperative, pleasant, in no acute distress Head: Normocephalic Eyes: conjunctiva pink and moist, no icterus, sclera white, non-injected Ears: Right ear: Normal, TM - dull. Left ear: Normal, TM - dull, serous effusion Nose: clear rhinorrhea. Oropharynx:moderate erythema Neck:supple Heart: Negative. RRR without obvious murmur, gallop, or rubs. No ectopy. Lungs: diminished breath sounds, scattered end expiratory wheezes, rhonchi diffusely ASSESSMENT/PLAN: 1. Recurrent pansinusitis - ICD9: 461.8, ICD10: J01.41 (primary diagnosis) - The patient should also be given OTC decongestants prn, warm salt water gargles, throat lozenges and/or OTC throat spray as needed for the first 5-7 days of treatment. - Supportive care with plenty of fluids, rest, and analgesia prn. - Follow up in 3-5 days if symptoms persist or worsen. - PREDNISONE 10 MG TABLET - FLUTICASONE 50 MCG/ACTUATION NASAL SPRAY,SUSPENSION 2. Wheezing - ICD9: 786.07, ICD10: R06.2 - Albuterol inhaler TID, may use up to every 4 hours as needed for SOB/wheezing - PREDNISONE 10 MG TABLET - Follow up in 5 days if no symptom improvement 3. Cough - ICD9: 786.2, ICD10: R05 - Plan as above - Recommend humidifier and Mucinex - PREDNISONE 10 MG TABLET 4. Dysfunction of both eustachian tubes - ICD9: 381.81, ICD10: H69.83 - FLUTICASONE 50 MCG/ACTUATION NASAL SPRAY,SUSPENSION 5. Oral thrush - ICD9: 112.0, ICD10: B37.0 - FLUCONAZOLE 200 MG TABLET Prescription instructions reviewed with patient as applicable. Potential red flag symptoms discussed with the patient. Reviewed appropriate action plan to take if red flag symptoms occur. Patient agreeable to treatment plan. Jeremias Burns APRN.CNP CNOV Observed: 04/02/2018 Status: COMPLETED Source: [place] 2:00 PM [facility] REPOSITORY Office Visit (INTMWS) SHAYAN CULVER ([id number]) 1950 M Date Time Provider Department 04/02/18 2:00 PM JEREMIAS BURNS (M48 M60 [employer]) INTMWS During your visit today, we recorded the following information about you: Temperature Pulse Respiration Blood pressure 97.9 degrees 78/minute 16/minute 114/78 Weight 90.7 kg Jeremias Burns APRN.CNP 04/02/2018 3:04 PM Signed CC: Patient presents with: Cough: Ongoing cough x 4 weeks, finished AIB, patient now has sore throat x 5 days HPI: Shayan Culver is a 67 year old male who presents to the office with complaint of respiratory symptoms, chest congestion, head congestion, cough, productive, wheezing, sore throat, sinus symptoms, ear symptoms, rhinorrhea and waking up with sweats for 2 weeks. Symptoms started with sinus drainage, ear pain and chest congestion. He denies sneezing, hoarse voice, body aches, fever, ear pain, rash, nausea and vomiting . Treatments tried include Guaifenesin/Mucinex, Albuterol once daily MDI/nebulilzer and Excedrin and previously on antibiotics per PCP with no relief of symptoms. Recently finished Zpak and reports no symptom improvement but no worsening of symptoms. Sick contacts: no. Patient denies a history of occasional episodes of bronchitis, pneumonia and COPD. Non-smoker and with a history of seasonal allergies. The ROS is otherwise negative. The patient's pmh, medications, allergies, and past visits are reviewed. PHYSICAL EXAM: BP 114/78 Pulse 78 Temp 36.6 ?C (97.9 ?F) (Temporal Artery) Resp 16 Wt 90.7 kg (200 lb) SpO2 98% BMI 27.12 kg/m? General appearance: tired/ill appearing, alert, cooperative, pleasant, in no acute distress Head: Normocephalic Eyes: conjunctiva pink and moist, no icterus, sclera white, non-injected Ears: Right ear: Normal, TM - dull. Left ear: Normal, TM - dull, serous effusion Nose: clear rhinorrhea. Oropharynx:moderate erythema Neck:supple Heart: Negative. RRR without obvious murmur, gallop, or rubs. No ectopy. Lungs: diminished breath sounds, scattered end expiratory wheezes, rhonchi diffusely ASSESSMENT/PLAN: 1. Recurrent pansinusitis - ICD9: 461.8, ICD10: J01.41 (primary diagnosis) - The patient should also be given OTC decongestants prn, warm salt water gargles, throat lozenges and/or OTC throat spray as needed for the first 5-7 days of treatment. - Supportive care with plenty of fluids, rest, and analgesia prn. - Follow up in 3-5 days if symptoms persist or worsen. - PREDNISONE 10 MG TABLET - FLUTICASONE 50 MCG/ACTUATION NASAL SPRAY,SUSPENSION 2. Wheezing - ICD9: 786.07, ICD10: R06.2 - Albuterol inhaler TID, may use up to every 4 hours as needed for SOB/wheezing - PREDNISONE 10 MG TABLET - Follow up in 5 days if no symptom improvement 3. Cough - ICD9: 786.2, ICD10: R05 - Plan as above - Recommend humidifier and Mucinex - PREDNISONE 10 MG TABLET 4. Dysfunction of both eustachian tubes - ICD9: 381.81, ICD10: H69.83 - FLUTICASONE 50 MCG/ACTUATION NASAL SPRAY,SUSPENSION 5. Oral thrush - ICD9: 112.0, ICD10: B37.0 - FLUCONAZOLE 200 MG TABLET Prescription instructions reviewed with patient as applicable. Potential red flag symptoms discussed with the patient. Reviewed appropriate action plan to take if red flag symptoms occur. Patient agreeable to treatment plan. Jeremias Burns APRN.CLARA Burns APRN.CLARA 04/02/2018 2:26 PM Signed Start using Albuterol inhaler at least 3x day. You may use as frequently as every 4 hours. Warm liquids for sore throat or lozenges. Resume Mucinex Humidifier at bedtime or where you spend the most time. Referring Provider: LAURA GROVE [[id number]] Allergies As of Date: 04/02/2018 Noted Allergy Reaction FLOXIN (OFLOXACIN) 10/09/2005 1 - Mental Status Change Comments: Severe depression. FLAGYL (METRONIDAZOLE HCL) 01/15/2005 1 - Mental Status Change Comments: Depression. CIPROFLOXACIN 02/16/2013 6 - Diarrhea 16 - Unknown Comments: ? diarrhea. MORPHINE 12/28/2016 1 - Mental Status Change Date Reviewed: 04/02/2018 Reviewed by: Emily Benavidez Ma - Fully Assessed Reason for Visit: Cough [28] Cmt: Ongoing cough x 4 weeks, finished AIB, patient now has sore throat x 5 days Reason For Visit History Recorded Primary Visit Diagnosis:Recurrent pansinusitis [J01.41] Other Visit Diagnoses:Wheezing [R06.2] Cough [R05] Dysfunction of both eustachian tubes [H69.83] Oral thrush [B37.0] Order(s):fluconazole (DIFLUCAN) 200 mg tabletTAKE 2 TABLETS BY MOUTH ON DAY 1, THEN TAKE ONE TABLET DAILY FOR 13 DAYSDisp: 15 tabletRfl: 0 predniSONE (DELTASONE) 10 mg tabletTake 40 mg x 3 days, 20 mg x 3 days, 10 mg x 3 days. Take with food, once dailyDisp: 21 tabletRfl: 0 fluticasone (FLONASE) 50 mcg/actuation nasal sprayUse 2 Sprays in each nostril once daily. Rinse mouth after use.Disp: 1 BottleRfl: 2 Prescriptions as of 04/02/2018 Sig: FLUCONAZOLE 200 MG TABLET TAKE 2 TABLETS BY MOUTH ON DA* PREDNISONE 10 MG TABLET Take 40 mg x 3 days, 20 mg x * FLUTICASONE 50 MCG/ACTUATION * Use 2 Sprays in each nostril * FLUDROCORTISONE 0.1 MG TABLET Take 1 tablet by mouth twice * NAPROXEN 500 MG TABLET Take 1 tablet by mouth twice * ESOMEPRAZOLE MAGNESIUM 40 MG * Take 1 capsule by mouth daily* CLOPIDOGREL 75 MG TABLET Take 1 tablet by mouth once d* RANITIDINE 150 MG TABLET Take 1 tablet by mouth twice * ALBUTEROL SULFATE HFA 90 MCG/* Inhale 2 Puffs as instructed * GUAIFENESIN ER 1,200 MG TABLE* Take 1 tablet by mouth once d* MECLIZINE 12.5 MG TABLET Take 1 tablet by mouth twice * LEVOTHYROXINE 75 MCG TABLET Take 1 tablet by mouth once d* SERTRALINE 100 MG TABLET Take 0.5 tablets by mouth twi* ATORVASTATIN 20 MG TABLET Take 1 tablet by mouth once d* ASPIRIN 325 MG TABLET Take 81 mg by mouth once genaro* POTASSIUM CHLORIDE ER 10 MEQ * Take 1 tablet by mouth daily * MULTIVITAMIN TABLET Take one(1) tablet daily. Problem List As Of Date 04/02/2018 Noted Resolved MALIGNANT NEOPL TONSIL [C09.9] INVALID FOR* DIZZINESS AND GIDDINESS [R42] INVALID FOR* More... 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 Depression [F32.9] INVALID FOR* More... GERD (gastroesophageal reflux disease) [K21.9] INVALID FOR* More... Vitamin d deficiency [E55.9] Hyperlipidemia [E78.5] More... Hearing loss [H91.90] INVALID FOR* BPPV (benign paroxysmal positional vertigo) [H8*INVALID FOR* Tonsillar cancer [C09.9] INVALID FOR* CAD (coronary artery disease) [I25.10] More... Carotid artery stenosis, symptomatic [I65.29] More... Encounter for screening colonoscopy [Z12.11] INVALID FOR* Diverticula of colon [K57.30] INVALID FOR* Gastritis [K29.70] INVALID FOR* Irritation around percutaneous endoscopic gastr*INVALID FOR* Essential hypertension, benign [I10] More... Labile blood pressure [R09.89] INVALID FOR* Other pain disorders related to psychological f*INVALID FOR* Adjustment disorder with mixed anxiety and depr*INVALID FOR* Asthma, moderate persistent, poorly-controlled * Arthritis [M19.90] INVALID FOR* More... Orthostatic hypotension [I95.1] INVALID FOR* More... COPD with chronic bronchitis (HCC) [J44.9] INVALID FOR* More... Hypertension [I10] INVALID FOR* More... Environmental allergies [Z91.09] INVALID FOR* More... Complication of gastrostomy tube (HCC) [K94.20] INVALID FOR* Reflux esophagitis [K21.0] More... Essential hypertension [I10] INVALID FOR* Internal carotid artery stenosis, bilateral [I6*INVALID FOR* Malnutrition of mild degree (HCC) [E44.1] INVALID FOR* History of common carotid artery stent placemen*INVALID FOR* History of carotid stenosis [Z86.79] INVALID FOR* Other instructions from your clinician: Start using Albuterol inhaler at least 3x day. You may use as frequently as every 4 hours. Warm liquids for sore throat or lozenges. Resume Mucinex Humidifier at bedtime or where you spend the most time. Prescriptions ordered this encounter Disp Refills Start End FLUCONAZOLE 200 MG TABLET 15 t* 0 04/02/2018 Sig: TAKE 2 TABLETS BY MOUTH ON DAY 1, THEN TAKE ONE TABLET DAILY FOR 13 DAYS PREDNISONE 10 MG TABLET 21 t* 0 04/02/2018 Sig: Take 40 mg x 3 days, 20 mg x 3 days, 10 mg x 3 days. Take with food, once daily FLUTICASONE 50 MCG/ACTUATION NASAL S* 1 Nikhil* 2 04/02/2018 Route: EACH NOSTRIL Sig: Use 2 Sprays in each nostril once daily. Rinse mouth after use. Medications Discontinued During This Encounter azithromycin (ZITHROMAX) 250 mg tabl* 6 ta* 0 03/20/2018 04/02/2018 Route: ORAL Sig: Take 1 tablet by mouth once daily. Disc: Reason for discontinue is not on file. fluconazole (DIFLUCAN) 200 mg tablet 15 t* 0 02/07/2018 04/02/2018 Sig: TAKE 2 TABLETS BY MOUTH ON DAY 1, THEN TAKE ONE TABLET DAILY FOR 13 DAYS Disc: Reason for discontinue is not on file. fluticasone (FLONASE) 50 mcg/actuati* 1 Nikhil* 3 09/05/2017 04/02/2018 Route: EACH NOSTRIL Sig: Use 1 [place] in each nostril daily at bedtime. Disc: Reason for discontinue is not on file. Encounter Status:Closed by JEREMIAS BURNS CNP on 04/02/18 PROGRESS Observed: 03/20/2018 Status: COMPLETED Source: [place] 11:26 AM [facility] [place] REPOSITORY O ID: [id number] Author: Laura Grove Service: (none) Author Type: Physician Type: Progress Notes Filed: 03/20/2018 1:53 PM Note Text: Reason for Visit Patient presents with: Same Day Appointment: possible sinus infection or pneumonia Shayan Culver is a 67 year old male who presents here today for Above Complaints.. Health Maintenance BLOOD PRESSURE CONTROLLED DTAP,TDAP,TD(1 - Tdap) HEPATITIS C SCREENING PNEUMOVAX AGE 65 AND OVER WITH 5YR LOOKBACK(1) INFLUENZA(1) HPI Here today for sinusitis- he has had that for the past 3 weeks, he was seen by Maude Higgins , his head below the eyes back of the head hurts him, some cough, some moy black discharge, was taking mucinex. He is not taking fludricortisone. His bp is very high, because does not like to come in, he has huge fluctuations, of bp , he goes up and down a lot. At home he is 117 /88, He had a carotid artery stenosis. Stopped wellbutrin felt dazed out on it No problem-specific Assessment AND Plan notes found for this encounter. 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 - Seasonal allergies Dr. Espana. 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 - Unspecified asthma(493.90) - Vertebral artery occlusion left - Vitamin D deficiency 2012 PAST SURGICAL HISTORY Procedure Laterality Date - APPENDECTOMY 1961 - CABG (4) VEIN GRAFTS AND ARTERIAL GRAFT(S) 02/26/13 - CAROTID STENT PLACEMENT-INTRAOP Right 12/06/2017 - COLONOSCOP W/ OR W/O [facility] SPEC 09/15/13 few diverticula - 10 year follow up - COLONOSCOPY several - EGD W/O [facility] SPECIMEN W/BX 09/15/13 gastritis, gastric band in place, thin PEG site - EGD W/O OR W/BRUSH/WASH 03/28/2010 EGD - EGD W/O OR W/BRUSH/WASH 05/07/2017 EGD - HEART CATHETERIZATION 09/01/14 diffuse disease, no revascularizable target - HEART SURGERY HX - KIDNEY SURGERY HX - PAST SURGICAL HISTORY OF ~1977 kidney stones - PAST SURGICAL HISTORY OF 1976 intestinal bypass - PAST SURGICAL HISTORY OF ~1977 partial intestinal bypass reversal - PAST SURGICAL HISTORY OF 1994 gastric banding - PAST SURGICAL HISTORY OF 01/18/2005 throat cancer - PAST SURGICAL HISTORY OF 11/08/2017 Lt carotid arteriogram with stenting - PEG TUBE 03/20/2005 removed after 1 1/2y - REMOVAL GALLBLADDER ~1977 - XRAY CHEST 1 VIEW 06/06/15 hyperinflation and scarring FAMILY HISTORY Problem Relation Age of Onset - Diabetes Mother - Coronary Artery Disease Mother - Psychiatry Mother depression - Cancer Mother lung - Cancer Father esophagus - Asthma Father - other (esophageal cancer) Father - Diabetes Brother - Alcohol/Drug Maternal Uncle - Alcohol/Drug Maternal Grandfather - Coronary Artery Disease Maternal Grandfather - Heart Maternal Grandfather - Alcohol/Drug Brother - Cancer Maternal Uncle throat - Coronary Artery Disease Maternal Aunt - Diabetes Maternal Grandmother - Diabetes Paternal Grandmother - Diabetes Maternal Aunt x2 - Heart Maternal Aunt x2 Social History Substance Use Topics - Smoking status: Never Smoker - Smokeless tobacco: Never Used Comment: Parents smoked in childhood. Spouse smokes. - Alcohol use No Past medical history, appointments, medications, allergies reviewed. Pertinent Lab/Diagnostic Studies are reviewed and discussed today Current Outpatient Prescriptions: - fluconazole (DIFLUCAN) 200 mg tablet - buPROPion (WELLBUTRIN) 75 mg tablet - fludrocortisone (FLORINEF) 0.1 mg tablet - naproxen (NAPROSYN) 500 mg tablet - esomeprazole (NEXIUM) 40 mg capsule - clopidogrel (PLAVIX) 75 mg tablet - ranitidine (ZANTAC) 150 mg tablet - albuterol HFA (VENTOLIN HFA) 90 mcg/actuation inhaler - fluticasone (FLONASE) 50 mcg/actuation nasal spray - guaiFENesin (MUCINEX) 1,200 mg Ta12 - meclizine (ANTIVERT) 12.5 mg tab - levothyroxine (SYNTHROID) 75 mcg tablet - sertraline (ZOLOFT) 100 mg tablet - atorvastatin (LIPITOR) 20 mg tablet - aspirin 325 mg tablet - potassium chloride (K-TAB) 10 mEq tablet - MULTIVITAMIN TAB Review of Systems CONSTITUTIONAL: No fevers, chills night sweats, unintended weight loss CARDIOVASCULAR: No chest pain, dyspnea, palpitations, orthopnea, PND, ankle edema. PULM: No dyspnea, unexplained cough. GI: No dysphagia/odynophagia, problematic reflux, constipation, diarrhea, changes in stool habits, hematochezia, melena. : No new urinary complaints, including dysuria, gross hematuria or pyuria. NEURO: No new balance problems, peripheral weakness/paresthesias or numbness of concern. Physical Exam BP 194/96 (BP Site: Right Arm, BP Position: Sitting, BP Cuff Size: Large Adult) Pulse 87 Resp 14 Ht 182.9 cm (6') Wt 90.7 kg (200 lb) SpO2 94% BMI 27.12 kg/m? General appearance: Well appearing, alert, in no acute distress, well nourished. Skin: Skin color, texture, turgor normal, no suspicious rashes or lesions Head: tenderness in the frontal and maxillary Eyes: Anicteric sclera. Pupils are equally round and reactive to light. Extraocular movements are intact. Lungs: Lungs clear to auscultation. No wheezing, rhonchi, rales Heart: RRR without murmur, gallop, or rubs. ASSESSMENT/PLAN: 1. Acute recurrent pansinusitis - ICD9: 461.8, ICD10: J01.41 (primary diagnosis) - Will begin treatment with as per antibiotic as written, see orders. Patient involved in shared decision making for management of her medical issues. History and medications reviewed. Epic updated as needed Refills taken care of and meds adjusted as indicated after reviewed history, exam and labs. Health Maintenance reviewed. Updated record and/or ordered tests as recorded. - AZITHROMYCIN 250 MG TABLET 2. Elevated BP without diagnosis of hypertension - ICD9: 796.2, ICD10: R03.0 He will call back with readings from home repeat systolic was 170, much lower than when he came in LAURA GROVE MD CNOV Observed: 03/20/2018 Status: COMPLETED Source: [place] 11:00 AM [facility] REPOSITORY Office Visit (INTMWS) SHAYAN CULVER ([id number]) 1950 M Date Time Provider Department 03/20/18 11:00 AM LAURA GROVE INTMWS During your visit today, we recorded the following information about you: Pulse Respiration Blood pressure Weight 87/minute 14/minute 194/96 90.7 kg Height 1.829 m LAURA GROVE MD 03/20/2018 1:53 PM Signed Reason for Visit Patient presents with: Same Day Appointment: possible sinus infection or pneumonia Shayan Culver is a 67 year old male who presents here today for Above Complaints.. Health Maintenance BLOOD PRESSURE CONTROLLED DTAP,TDAP,TD(1 - Tdap) HEPATITIS C SCREENING PNEUMOVAX AGE 65 AND OVER WITH 5YR LOOKBACK(1) INFLUENZA(1) HPI Here today for sinusitis- he has had that for the past 3 weeks, he was seen by Maude Higgins , his head below the eyes back of the head hurts him, some cough, some moy black discharge, was taking mucinex. He is not taking fludricortisone. His bp is very high, because does not like to come in, he has huge fluctuations, of bp , he goes up and down a lot. At home he is 117 /88, He had a carotid artery stenosis. Stopped wellbutrin felt dazed out on it No problem-specific Assessment AND Plan notes found for this encounter. PAST MEDICAL HISTORY Diagnosis Date - BPH (benign prostatic hyperplasia) - CAD (coronary artery disease) - Carotid stenosis L>R - COPD (chronic obstructive pulmonary disease) ([facility]) - Essential hypertension, benign Labile hyper and hypotensive - GERD (gastroesophageal reflux disease) 2012 - History of gastric bypass - Hyperlipidemia - Hypothyroidism - Major depressive disorder, single episode, moderate (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) 02/2013 CABG x 4 - Orthostatic hypotension - Reflux esophagitis Confirmed by Ba swallow. - Seasonal allergies Dr. Espana. - Stroke (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 - Unspecified asthma(493.90) - Vertebral artery occlusion left - Vitamin D deficiency 2012 PAST SURGICAL HISTORY Procedure Laterality Date - APPENDECTOMY 1961 - CABG (4) VEIN GRAFTS AND ARTERIAL GRAFT(S) 02/26/13 - CAROTID STENT PLACEMENT-INTRAOP Right 12/06/2017 - COLONOSCOP W/ OR W/O [facility] SPEC 09/15/13 few diverticula - 10 year follow up - COLONOSCOPY several - EGD W/O [facility] SPECIMEN W/BX 09/15/13 gastritis, gastric band in place, thin PEG site - EGD W/O OR W/BRUSH/WASH 03/28/2010 EGD - EGD W/O OR W/BRUSH/WASH 05/07/2017 EGD - HEART CATHETERIZATION 09/01/14 diffuse disease, no revascularizable target - HEART SURGERY HX - KIDNEY SURGERY HX - PAST SURGICAL HISTORY OF ~1977 kidney stones - PAST SURGICAL HISTORY OF 1976 intestinal bypass - PAST SURGICAL HISTORY OF ~1977 partial intestinal bypass reversal - PAST SURGICAL HISTORY OF 1994 gastric banding - PAST SURGICAL HISTORY OF 01/18/2005 throat cancer - PAST SURGICAL HISTORY OF 11/08/2017 Lt carotid arteriogram with stenting - PEG TUBE 03/20/2005 removed after 1 1/2y - REMOVAL GALLBLADDER ~1977 - XRAY CHEST 1 VIEW 06/06/15 hyperinflation and scarring FAMILY HISTORY Problem Relation Age of Onset - Diabetes Mother - Coronary Artery Disease Mother - Psychiatry Mother depression - Cancer Mother lung - Cancer Father esophagus - Asthma Father - other (esophageal cancer) Father - Diabetes Brother - Alcohol/Drug Maternal Uncle - Alcohol/Drug Maternal Grandfather - Coronary Artery Disease Maternal Grandfather - Heart Maternal Grandfather - Alcohol/Drug Brother - Cancer Maternal Uncle throat - Coronary Artery Disease Maternal Aunt - Diabetes Maternal Grandmother - Diabetes Paternal Grandmother - Diabetes Maternal Aunt x2 - Heart Maternal Aunt x2 Social History Substance Use Topics - Smoking status: Never Smoker - Smokeless tobacco: Never Used Comment: Parents smoked in childhood. Spouse smokes. - Alcohol use No Past medical history, appointments, medications, allergies reviewed. Pertinent Lab/Diagnostic Studies are reviewed and discussed today Current Outpatient Prescriptions: - fluconazole (DIFLUCAN) 200 mg tablet - buPROPion (WELLBUTRIN) 75 mg tablet - fludrocortisone (FLORINEF) 0.1 mg tablet - naproxen (NAPROSYN) 500 mg tablet - esomeprazole (NEXIUM) 40 mg capsule - clopidogrel (PLAVIX) 75 mg tablet - ranitidine (ZANTAC) 150 mg tablet - albuterol HFA (VENTOLIN HFA) 90 mcg/actuation inhaler - fluticasone (FLONASE) 50 mcg/actuation nasal spray - guaiFENesin (MUCINEX) 1,200 mg Ta12 - meclizine (ANTIVERT) 12.5 mg tab - levothyroxine (SYNTHROID) 75 mcg tablet - sertraline (ZOLOFT) 100 mg tablet - atorvastatin (LIPITOR) 20 mg tablet - aspirin 325 mg tablet - potassium chloride (K-TAB) 10 mEq tablet - MULTIVITAMIN TAB Review of Systems CONSTITUTIONAL: No fevers, chills night sweats, unintended weight loss CARDIOVASCULAR: No chest pain, dyspnea, palpitations, orthopnea, PND, ankle edema. PULM: No dyspnea, unexplained cough. GI: No dysphagia/odynophagia, problematic reflux, constipation, diarrhea, changes in stool habits, hematochezia, melena. : No new urinary complaints, including dysuria, gross hematuria or pyuria. NEURO: No new balance problems, peripheral weakness/paresthesias or numbness of concern. Physical Exam BP 194/96 (BP Site: Right Arm, BP Position: Sitting, BP Cuff Size: Large Adult) Pulse 87 Resp 14 Ht 182.9 cm (6') Wt 90.7 kg (200 lb) SpO2 94% BMI 27.12 kg/m? General appearance: Well appearing, alert, in no acute distress, well nourished. Skin: Skin color, texture, turgor normal, no suspicious rashes or lesions Head: tenderness in the frontal and maxillary Eyes: Anicteric sclera. Pupils are equally round and reactive to light. Extraocular movements are intact. Lungs: Lungs clear to auscultation. No wheezing, rhonchi, rales Heart: RRR without murmur, gallop, or rubs. ASSESSMENT/PLAN: 1. Acute recurrent pansinusitis - ICD9: 461.8, ICD10: J01.41 (primary diagnosis) - Will begin treatment with as per antibiotic as written, see orders. Patient involved in shared decision making for management of her medical issues. History and medications reviewed. Epic updated as needed Refills taken care of and meds adjusted as indicated after reviewed history, exam and labs. Health Maintenance reviewed. Updated record and/or ordered tests as recorded. - AZITHROMYCIN 250 MG TABLET 2. Elevated BP without diagnosis of hypertension - ICD9: 796.2, ICD10: R03.0 He will call back with readings from home repeat systolic was 170, much lower than when he came in LAURA GROVE MD Referring Provider: SELF [[id number]] Allergies As of Date: 03/20/2018 Noted Allergy Reaction FLOXIN (OFLOXACIN) 10/09/2005 1 - Mental Status Change Comments: Severe depression. FLAGYL (METRONIDAZOLE HCL) 01/15/2005 1 - Mental Status Change Comments: Depression. CIPROFLOXACIN 02/16/2013 6 - Diarrhea 16 - Unknown Comments: ? diarrhea. MORPHINE 12/28/2016 1 - Mental Status Change Date Reviewed: 03/20/2018 Reviewed by: Kamila Casas LPN - Fully Assessed Reason for Visit: Same Day Appointment [255] Cmt: possible sinus infection or pneumonia Primary Visit Diagnosis:Acute recurrent pansinusitis [J01.41] Other Visit Diagnosis:Elevated BP without diagnosis of hypertension [R03.0] Order(s):azithromycin (ZITHROMAX) 250 mg tabletTake 1 tablet by mouth once daily.Disp: 6 tabletRfl: 0 Prescriptions as of 03/20/2018 Sig: AZITHROMYCIN 250 MG TABLET Take 1 tablet by mouth once d* FLUCONAZOLE 200 MG TABLET TAKE 2 TABLETS BY MOUTH ON DA* FLUDROCORTISONE 0.1 MG TABLET Take 1 tablet by mouth twice * NAPROXEN 500 MG TABLET Take 1 tablet by mouth twice * ESOMEPRAZOLE MAGNESIUM 40 MG * Take 1 capsule by mouth daily* CLOPIDOGREL 75 MG TABLET Take 1 tablet by mouth once d* RANITIDINE 150 MG TABLET Take 1 tablet by mouth twice * ALBUTEROL SULFATE HFA 90 MCG/* Inhale 2 Puffs as instructed * FLUTICASONE 50 MCG/ACTUATION * Use 1 [place] in each nostril d* GUAIFENESIN ER 1,200 MG TABLE* Take 1 tablet by mouth once d* MECLIZINE 12.5 MG TABLET Take 1 tablet by mouth twice * LEVOTHYROXINE 75 MCG TABLET Take 1 tablet by mouth once d* SERTRALINE 100 MG TABLET Take 0.5 tablets by mouth twi* ATORVASTATIN 20 MG TABLET Take 1 tablet by mouth once d* ASPIRIN 325 MG TABLET Take 81 mg by mouth once genaro* POTASSIUM CHLORIDE ER 10 MEQ * Take 1 tablet by mouth daily * MULTIVITAMIN TABLET Take one(1) tablet daily. Problem List As Of Date 03/20/2018 Noted Resolved MALIGNANT NEOPL TONSIL [C09.9] INVALID FOR* DIZZINESS AND GIDDINESS [R42] INVALID FOR* More... 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 Depression [F32.9] INVALID FOR* More... GERD (gastroesophageal reflux disease) [K21.9] INVALID FOR* More... Vitamin d deficiency [E55.9] Hyperlipidemia [E78.5] More... Hearing loss [H91.90] INVALID FOR* BPPV (benign paroxysmal positional vertigo) [H8*INVALID FOR* Tonsillar cancer [C09.9] INVALID FOR* CAD (coronary artery disease) [I25.10] More... Carotid artery stenosis, symptomatic [I65.29] More... Encounter for screening colonoscopy [Z12.11] INVALID FOR* Diverticula of colon [K57.30] INVALID FOR* Gastritis [K29.70] INVALID FOR* Irritation around percutaneous endoscopic gastr*INVALID FOR* Essential hypertension, benign [I10] More... Labile blood pressure [R09.89] INVALID FOR* Other pain disorders related to psychological f*INVALID FOR* Adjustment disorder with mixed anxiety and depr*INVALID FOR* Asthma, moderate persistent, poorly-controlled * Arthritis [M19.90] INVALID FOR* More... Orthostatic hypotension [I95.1] INVALID FOR* More... COPD with chronic bronchitis (HCC) [J44.9] INVALID FOR* More... Hypertension [I10] INVALID FOR* More... Environmental allergies [Z91.09] INVALID FOR* More... Complication of gastrostomy tube (HCC) [K94.20] INVALID FOR* Reflux esophagitis [K21.0] More... Essential hypertension [I10] INVALID FOR* Internal carotid artery stenosis, bilateral [I6*INVALID FOR* Malnutrition of mild degree (HCC) [E44.1] INVALID FOR* History of common carotid artery stent placemen*INVALID FOR* History of carotid stenosis [Z86.79] INVALID FOR* Prescriptions ordered this encounter Disp Refills Start End AZITHROMYCIN 250 MG TABLET 6 ta* 0 03/20/2018 Route: ORAL Sig: Take 1 tablet by mouth once daily. Medications Discontinued During This Encounter buPROPion (WELLBUTRIN) 75 mg tablet 60 t* 2 01/31/2018 03/20/2018 Route: ORAL Sig: Take 1 tablet by mouth twice daily. Disc: Reason for discontinue is not on file. Encounter Status:Closed by LAURA GROVE MD on 03/20/18 PROGRESS Observed: 03/01/2018 Status: COMPLETED Source: [place] 3:16 PM [facility] REPOSITORY O ID: [id number] Author: Luther Nieto Service: (none) Author Type: Physician Type: Progress Notes Filed: 03/01/2018 3:23 PM Note Text: This patient is seen back in follow-up of his bilateral carotid artery stenting. He is doing very well post stenting and states that he feels a lot better than he did prior to the stenting procedures. 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 I still don't think that his improvement in how he feels on a day-to-day basis is related at all to what we did with regard to his carotid artery stenting. I do feel that the fact that the patient no longer is worried about the severe stenosis may have impacted how he feels on a day-to-day basis. At this point in time I review the imaging with the patient and show him what we did at the time of his carotid artery stenting and he is appreciative of this. At this point I tell him what I would like to do is get a CT angiogram in June and then an office visit in July to see him back and see how we look on carotid imaging. I tell him he should continue his aspirin and Plavix and I'm probably going to leave this long-term given the etiology of his problem. Overall I'm very pleased about this patient's outcome. He still having issues with his blood pressure but this is an extremely curious and interesting problem because the patient and have bouts of extremely severe hypertension is he had at one point in time which canceled his original stenting but then at other times can have blood pressure so low that he actually has syncopal episodes secondary to pressures in the 60s. This certainly poses a dilemma and while I have discussed this with his medical device sales consultant I don't know that we have a good answer as to what to do with regard to his blood pressure issues. All in all the patient is doing quite well has no postoperative sequelae and is very satisfied with how things have gone I'm going to follow-up with him when he returns for reassessment in July after CT angiogram is performed in June.I spent 15 minutes in the visit, with more than 50% of the total [id number] time of the visit in counseling / coordination of care. YESSY Observed: 02/21/2018 Status: COMPLETED Source: [place] 10:00 AM [facility] OTHER [place] REPOSITORY Office Visit (AGMIL) SHAYAN CULVER ([id number]) 1950 M Date Time Provider Department 02/21/18 10:00 AM LUTHER NIETO During your visit today, we recorded the following information about you: Pulse Respiration Blood pressure Weight 76/minute 18/minute 144/86 86.2 kg Height 1.829 m Luther Nieto MD 03/01/2018 3:23 PM Signed This patient is seen back in follow-up of his bilateral carotid artery stenting. He is doing very well post stenting and states that he feels a lot better than he did prior to the stenting procedures. 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 I still don't think that his improvement in how he feels on a day-to-day basis is related at all to what we did with regard to his carotid artery stenting. I do feel that the fact that the patient no longer is worried about the severe stenosis may have impacted how he feels on a day-to-day basis. At this point in time I review the imaging with the patient and show him what we did at the time of his carotid artery stenting and he is appreciative of this. At this point I tell him what I would like to do is get a CT angiogram in June and then an office visit in July to see him back and see how we look on carotid imaging. I tell him he should continue his aspirin and Plavix and I'm probably going to leave this long-term given the etiology of his problem. Overall I'm very pleased about this patient's outcome. He still having issues with his blood pressure but this is an extremely curious and interesting problem because the patient and have bouts of extremely severe hypertension is he had at one point in time which canceled his original stenting but then at other times can have blood pressure so low that he actually has syncopal episodes secondary to pressures in the 60s. This certainly poses a dilemma and while I have discussed this with his medical device sales consultant I don't know that we have a good answer as to what to do with regard to his blood pressure issues. All in all the patient is doing quite well has no postoperative sequelae and is very satisfied with how things have gone I'm going to follow-up with him when he returns for reassessment in July after CT angiogram is performed in June.I spent 15 minutes in the visit, with more than 50% of the total [id number] time of the visit in counseling / coordination of care. Referring Provider: LAURA GROVE [[id number]] Allergies As of Date: 02/21/2018 Noted Allergy Reaction FLOXIN (OFLOXACIN) 10/09/2005 1 - Mental Status Change Comments: Severe depression. FLAGYL (METRONIDAZOLE HCL) 01/15/2005 1 - Mental Status Change Comments: Depression. CIPROFLOXACIN 02/16/2013 6 - Diarrhea 16 - Unknown Comments: ? diarrhea. MORPHINE 12/28/2016 1 - Mental Status Change Date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 nasal spray Use 1 [place] in each nostril daily at bedtime. guaiFENesin (MUCINEX) 1,200 mg Ta12 Take 1 tablet by mouth once daily. meclizine (ANTIVERT) 12.5 mg tab Take 1 tablet by mouth twice daily. levothyroxine (SYNTHROID) 75 mcg tablet Take 1 tablet by mouth once daily. sertraline (ZOLOFT) 100 mg tablet Take 0.5 tablets by mouth twice daily. atorvastatin (LIPITOR) 20 mg tablet Take 1 tablet by mouth once daily. aspirin 325 mg tablet Take 81 mg by mouth once daily. potassium chloride (K-TAB) 10 mEq tablet Take 1 tablet by mouth daily with breakfast. MULTIVITAMIN TAB Take one(1) tablet daily. No current facility-administered medications for this visit. FAMILY HISTORY Problem Relation Age of Onset - Diabetes Mother - Coronary Artery Disease Mother - Psychiatry Mother depression - Cancer Mother lung - Cancer Father esophagus - Asthma Father - esophageal cancer [OTHER] Father - Diabetes Brother - Alcohol/Drug Maternal Uncle - Alcohol/Drug Maternal Grandfather - Coronary Artery Disease Maternal Grandfather - Heart Maternal Grandfather - Alcohol/Drug Brother - Cancer Maternal Uncle throat - Coronary Artery Disease Maternal Aunt - Diabetes Maternal Grandmother - Diabetes Paternal Grandmother - Diabetes Maternal Aunt x2 - Heart Maternal Aunt x2 Social History Marital status: Spouse name: Jenna Years of education: Number of children: 2 Occupational History Occupation Employer Comment disability-[employer]* Social History Main Topics Smoking status: Never Smoker Smokeless tobacco: Never Used Comment: Parents smoked in childhood. Spouse smokes. Alcohol use: No Drug use: Yes Types: Marijuana Comment: Past marijuana, over 1 year ago. Sexual activity: Yes Partners with: Female EXAM: BP 154/100 (BP Site: Left Arm, BP Position: Sitting, BP Cuff Size: Regular Adult) Pulse 92 Temp 36.8 ?C (98.3 ?F) (Left Tympanic) Resp 12 Wt 89.4 kg (197 lb) SpO2 98% BMI 25.85 kg/m? PHYSICAL EXAM: General Appearance: Well appearing, alert, in no acute distress, well-hydrated, well nourished.. Skin: Skin color, texture, turgor normal, no suspicious rashes or lesions. Left side of peg site with grape sized red area that is slightly swollen. Head: Normocephalic, no masses, lesions, tenderness or abnormalities. Eyes: Anicteric sclera. Pupils are equally round and reactive to light. Extraocular movements are intact. . Ears: External ears normal, canals clear, Normal TMs bilaterally. Oropharynx: Lips, mucosa, and tongue normal, teeth and gums normal, oropharynx normal. Neck: Supple, no adenopathy Lungs: Lungs clear to auscultation. No wheezing, rhonchi, rales. Heart: RRR without murmur, gallop, or rubs. No ectopy. Abdomen: Abdomen soft, non-tender. Bowel sounds normal. No masses, organomegaly. Musculoskeletal: No joint swelling, deformity, or tenderness. Neurologic: Gait normal. ASSESSMENT/PLAN: 1. Bronchitis - ICD9: 490, ICD10: J40 (primary diagnosis) Continue mucinex. Increase fluids. Start augmentin. - CBC + DIFF - COMP METABOLIC PANEL - XR CHEST 2V FRONTAL/LAT - Discussed red flag symptoms and when to call. 2. Wound infection - ICD9: 958.3, ICD10: T14.8XXA, L08.9 - Begin treatment with Augmentin - warm compresses. - WOUND CULTURE AND GRAM STAIN - CBC + DIFF - COMP METABOLIC PANEL 3. Labile blood pressure - ICD9: 796.2, ICD10: R09.89 - Recheck BP in office in a week. Encouraged to call Dr. Dunbar to discuss his labile blood pressure and if parameters needs to be adjusted for the florinef. - FLUDROCORTISONE 0.1 MG TABLET Discussed treatment plan and patient voices understanding. Patient's questions answered appropriately. Medications and potential side effects were discussed and patient voices understanding. Return to the office as scheduled or as needed for worsening/no improvement. Maude Higgins APRN.CLARA Higgins APRN.CLARA 01/07/2018 2:38 PM Signed 1. Nurse visit next week for BP check. 2. Start augmentin for bronchitis. 3. Keep using mucinex. 4. If you start feeling worse or running a fever, let us know. 5. Continue to monitor BP. 6. Labs today. Referring Provider: SELF [[id number]] Allergies As of Date: 01/07/2018 Noted Allergy Reaction FLOXIN (OFLOXACIN) 10/09/2005 1 - Mental Status Change Comments: Severe depression. FLAGYL (METRONIDAZOLE HCL) 01/15/2005 1 - Mental Status Change Comments: Depression. CIPROFLOXACIN 02/16/2013 6 - Diarrhea 16 - Unknown Comments: ? diarrhea. MORPHINE 12/28/2016 1 - Mental Status Change Date Reviewed: 01/07/2018 Reviewed by: Wanda Salvador Slab Tripper - Fully Assessed Reason for Visit: Fatigue [46] Cmt: X5 days Primary Visit Diagnosis:Bronchitis [J40] Other Visit Diagnoses:Wound infection [T14.8XXA, L08.9] Labile blood pressure [R09.89] Order(s):amoxicillin-clavulanic acid (AUGMENTIN) 875-125 mg per tabletTake 1 tablet by mouth twice daily for 10 days.Disp: 20 tabletRfl: 0 WOUND CULTURE AND GRAM STAIN [SQWCUL] Order #: [id number] CBC + DIFF [SQCBCDIF] Order #: [id number] FUTURE COMP METABOLIC PANEL [SQCMP] Order #: [id number] FUTURE XR CHEST 2V FRONTAL/LAT [[id number]] Order #: [id number] FUTURE fludrocortisone (FLORINEF) 0.1 mg tabletTake 1 tablet by mouth twice daily. Prescribed by cardiology.Disp: Rfl: Prescriptions as of 01/07/2018 Sig: NAPROXEN 500 MG TABLET Take 1 tablet by mouth twice * ESOMEPRAZOLE MAGNESIUM 40 MG * Take 1 capsule by mouth daily* CLOPIDOGREL 75 MG TABLET Take 1 tablet by mouth once d* RANITIDINE 150 MG TABLET Take 1 tablet by mouth twice * ALBUTEROL SULFATE HFA 90 MCG/* Inhale 2 Puffs as instructed * FLUTICASONE 50 MCG/ACTUATION * Use 1 [place] in each nostril d* GUAIFENESIN ER 1,200 MG TABLE* Take 1 tablet by mouth once d* MECLIZINE 12.5 MG TABLET Take 1 tablet by mouth twice * LEVOTHYROXINE 75 MCG TABLET Take 1 tablet by mouth once d* SERTRALINE 100 MG TABLET Take 0.5 tablets by mouth twi* ATORVASTATIN 20 MG TABLET Take 1 tablet by mouth once d* ASPIRIN 325 MG TABLET Take 81 mg by mouth once genaro* POTASSIUM CHLORIDE ER 10 MEQ * Take 1 tablet by mouth daily * MULTIVITAMIN TABLET Take one(1) tablet daily. AMOXICILLIN 875 MG-POTASSIUM * Take 1 tablet by mouth twice * FLUDROCORTISONE 0.1 MG TABLET Take 1 tablet by mouth twice * Problem List As Of Date 01/07/2018 Noted Resolved MALIGNANT NEOPL TONSIL [C09.9] INVALID FOR* DIZZINESS AND GIDDINESS [R42] INVALID FOR* More... 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 Depression [F32.9] INVALID FOR* More... GERD (gastroesophageal reflux disease) [K21.9] INVALID FOR* More... Vitamin d deficiency [E55.9] Hyperlipidemia [E78.5] More... Hearing loss [H91.90] INVALID FOR* BPPV (benign paroxysmal positional vertigo) [H8*INVALID FOR* Tonsillar cancer [C09.9] INVALID FOR* CAD (coronary artery disease) [I25.10] More... Carotid artery stenosis, symptomatic [I65.29] More... Encounter for screening colonoscopy [Z12.11] INVALID FOR* Diverticula of colon [K57.30] INVALID FOR* Gastritis [K29.70] INVALID FOR* Irritation around percutaneous endoscopic gastr*INVALID FOR* Essential hypertension, benign [I10] More... Labile blood pressure [R09.89] INVALID FOR* Other pain disorders related to psychological f*INVALID FOR* Adjustment disorder with mixed anxiety and depr*INVALID FOR* Asthma, moderate persistent, poorly-controlled * Arthritis [M19.90] INVALID FOR* More... Orthostatic hypotension [I95.1] INVALID FOR* More... COPD with chronic bronchitis (HCC) [J44.9] INVALID FOR* More... Hypertension [I10] INVALID FOR* More... Environmental allergies [Z91.09] INVALID FOR* More... Complication of gastrostomy tube (HCC) [K94.20] INVALID FOR* Reflux esophagitis [K21.0] More... Essential hypertension [I10] INVALID FOR* Internal carotid artery stenosis, bilateral [I6*INVALID FOR* Malnutrition of mild degree (HCC) [E44.1] INVALID FOR* History of common carotid artery stent placemen*INVALID FOR* History of carotid stenosis [Z86.79] INVALID FOR* Other instructions from your clinician: 1. Nurse visit next week for BP check. 2. Start augmentin for bronchitis. 3. Keep using mucinex. 4. If you start feeling worse or running a fever, let us know. 5. Continue to monitor BP. 6. Labs today. Prescriptions ordered this encounter Disp Refills Start End AMOXICILLIN 875 MG-POTASSIUM CLAVULA* 20 t* 0 01/07/2018 01/17/2018 Route: ORAL Sig: Take 1 tablet by mouth twice daily for 10 days. FLUDROCORTISONE 0.1 MG TABLET 01/07/2018 Class: Med Update Route: ORAL Sig: Take 1 tablet by mouth twice daily. Prescribed by cardiology. Medications Discontinued During This Encounter >IV - Start IV 1 Ea* 0 12/12/2017 01/07/2018 Class: Back Office Sig: START IV Disc: Other Encounter Status:Closed by MAUDE HIGGINS CNP on 01/07/18 WOUND Observed: 01/07/2018 Status: F Source: [place] CULTURE/STAIN 1:03 AM [facility] [place] REPOSITORY Sp. Request/Comment: - Swab Smear Result - No organisms seen No Polymorphonuclear leukocytes Culture Result - Few skin mckenna Performed By: #### WCUL #### [facility] [address] [id number] PROGRESS Observed: 12/20/2017 Status: COMPLETED Source: [place] 1:17 PM [facility] [place] REPOSITORY HNO ID: [id number] Author: Maude (Clara) Ronaldo Service: (none) Author Type: Nurse Practitioner Type: Progress Notes Filed: 12/20/2017 2:51 PM Note Text: This is a 67 year old male who presents today with: Patient presents with: Recheck: hypotension HISTORY OF PRESENT ILLNESS: Shayan Culver is a 67 year old male. Patient presents with: Recheck: hypotension Pt presents today for short interval follow-up. He was here last week for hospital f/u after having carotid done. He was having problems with hypotension and dizziness. His hemoglobin had dropped about 4 grams. He had 2 hematomas of the left groin. Refers that bruising is better. Refers that he is feeling better. Drinking 4 bottles of water daily. Eating better. Weight up 4 pounds. Hgb raising slowly. Refers that he is taking a daily. Refers that he takes the iron 2-3 times a day. Refers dizziness is improved. Restless legs improved. Refers blood pressure continues to fluctuate, but not getting low numbers any longer. Refers that not getting less than 90's systolic. REVIEW OF SYSTEMS GENERAL: No weight loss, malaise or fevers/chills HEENT: Negative for frequent or significant headaches, No changes in hearing or vision. RESPIRATORY: Negative for cough, hemoptysis, wheezing, dyspnea or shortness of breath CARDIOVASCULAR: Negative for chest pain, leg swelling, orthopnea, or palpitations GI: No nausea, vomiting, or diarrhea/constipation. No hematochezia/melena. No heartburn or reflux symptoms. MUSCULOSKELETAL: + knee pain. SKIN: Negative for lesions, rash, and itching. Refers bruising improved. ENDOCRINE: Negative for cold or heat intolerance, polyuria, polydipsia and goiter NEURO: No history of headaches, syncope, paralysis, seizures or tremors PAST MEDICAL HISTORY: PAST MEDICAL HISTORY Diagnosis Date - BPH (benign prostatic hyperplasia) - CAD (coronary artery disease) - Carotid stenosis L>R - COPD (chronic obstructive pulmonary disease) ([facility]) - Essential hypertension, benign Labile hyper and hypotensive - GERD (gastroesophageal reflux disease) 2012 - History of gastric bypass - Hyperlipidemia - Hypothyroidism - Major depressive disorder, single episode, moderate (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) 02/2013 CABG x 4 - Orthostatic hypotension - Reflux esophagitis Confirmed by Ba swallow. - Seasonal allergies Dr. Espana. - Stroke (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 - Unspecified asthma(493.90) - Vertebral artery occlusion left - Vitamin D deficiency 2012 PAST SURGICAL HISTORY Procedure Laterality Date - APPENDECTOMY 1961 - CABG (4) VEIN GRAFTS AND ARTERIAL GRAFT(S) 02/26/13 - CAROTID STENT PLACEMENT-INTRAOP Right 12/06/2017 - COLONOSCOP W/ OR W/O [facility] SPEC 09/15/13 few diverticula - 10 year follow up - COLONOSCOPY several - EGD W/O [facility] SPECIMEN W/BX 09/15/13 gastritis, gastric band in place, thin PEG site - EGD W/O OR W/BRUSH/WASH 03/28/2010 EGD - EGD W/O OR W/BRUSH/WASH 05/07/2017 EGD - HEART CATHETERIZATION 09/01/14 diffuse disease, no revascularizable target - HEART SURGERY HX - KIDNEY SURGERY HX - PAST SURGICAL HISTORY OF ~1977 kidney stones - PAST SURGICAL HISTORY OF 1976 intestinal bypass - PAST SURGICAL HISTORY OF ~1977 partial intestinal bypass reversal - PAST SURGICAL HISTORY OF 1994 gastric banding - PAST SURGICAL HISTORY OF 01/18/2005 throat cancer - PAST SURGICAL HISTORY OF 11/08/2017 Lt carotid arteriogram with stenting - PEG TUBE 03/20/2005 removed after 1 1/2y - REMOVAL GALLBLADDER ~1977 - XRAY CHEST 1 VIEW 06/06/15 hyperinflation and scarring ALLERGIES Floxin [Ofloxacin]; Flagyl [Metronidazole Hcl]; Ciprofloxacin; Morphine MEDICATIONS Current Outpatient Prescriptions: >IV - Start IV START IV naproxen (NAPROSYN) 500 mg tablet Take 1 tablet by mouth twice daily as needed (for pain/inflammation). Take with food. esomeprazole (NEXIUM) 40 mg capsule Take 1 capsule by mouth daily before breakfast. 1/2 hr before meal. diazePAM (VALIUM) 5 mg tablet Take 4 mg by mouth every 6 hours as needed (sleep). clopidogrel (PLAVIX) 75 mg tablet Take 1 tablet by mouth once daily. ranitidine (ZANTAC) 150 mg tablet Take 1 tablet by mouth twice daily. albuterol HFA (VENTOLIN HFA) 90 mcg/actuation inhaler Inhale 2 Puffs as instructed every 4 hours as needed for Wheezing/Shortness of Breath. fluticasone (FLONASE) 50 mcg/actuation nasal spray Use 1 [place] in each nostril daily at bedtime. guaiFENesin (MUCINEX) 1,200 mg Ta12 Take 1 tablet by mouth once daily. meclizine (ANTIVERT) 12.5 mg tab Take 1 tablet by mouth twice daily. levothyroxine (SYNTHROID) 75 mcg tablet Take 1 tablet by mouth once daily. sertraline (ZOLOFT) 100 mg tablet Take 0.5 tablets by mouth twice daily. atorvastatin (LIPITOR) 20 mg tablet Take 1 tablet by mouth once daily. aspirin 325 mg tablet Take 81 mg by mouth once daily. potassium chloride (K-TAB) 10 mEq tablet Take 1 tablet by mouth daily with breakfast. MULTIVITAMIN TAB Take one(1) tablet daily. No current facility-administered medications for this visit. FAMILY HISTORY Problem Relation Age of Onset - Diabetes Mother - Coronary Artery Disease Mother - Psychiatry Mother depression - Cancer Mother lung - Cancer Father esophagus - Asthma Father - esophageal cancer [OTHER] Father - Diabetes Brother - Alcohol/Drug Maternal Uncle - Alcohol/Drug Maternal Grandfather - Coronary Artery Disease Maternal Grandfather - Heart Maternal Grandfather - Alcohol/Drug Brother - Cancer Maternal Uncle throat - Coronary Artery Disease Maternal Aunt - Diabetes Maternal Grandmother - Diabetes Paternal Grandmother - Diabetes Maternal Aunt x2 - Heart Maternal Aunt x2 Social History Marital status: Spouse name: Jenna Years of education: Number of children: 2 Occupational History Occupation Employer Comment disability-[employer]* Social History Main Topics Smoking status: Never Smoker Smokeless tobacco: Never Used Comment: Parents smoked in childhood. Spouse smokes. Alcohol use: No Drug use: Yes Types: Marijuana Comment: Past marijuana, over 1 year ago. Sexual activity: Yes Partners with: Female EXAM: BP 102/60 (BP Site: Right Arm, BP Position: Sitting, BP Cuff Size: Regular Adult) Pulse 78 Resp 12 Wt 90.3 kg (199 lb) BMI 26.11 kg/m? PHYSICAL EXAM: General Appearance: Well appearing, alert, in no acute distress, well-hydrated, well nourished.. Skin: Skin color, texture, turgor normal, no suspicious rashes or lesions. Bruising of the left groin and thigh much improved. Some fading bruising still present. Head: Normocephalic, no masses, lesions, tenderness or abnormalities. Eyes: Anicteric sclera. Pupils are equally round and reactive to light. Extraocular movements are intact. . Lungs: Lungs clear to auscultation. No wheezing, rhonchi, rales. Heart: RRR without murmur, gallop, or rubs. No ectopy. Extremities: No deformities, edema, skin discoloration, clubbing or cyanosis. Good capillary refill. . Neurologic: Gait normal. ASSESSMENT/PLAN: 1. Orthostatic hypotension - ICD9: 458.0, ICD10: I95.1 (primary diagnosis) Pt doing better. He is tolerating fluids. Refers BP still fluctuates, but no significantly low BPs any longer. 2. Dizziness and giddiness - ICD9: 780.4, ICD10: R42 Improved. Keep drinking! 3. Anemia, unspecified type - ICD9: 285.9, ICD10: D64.9 Improving. Continue iron -- 1-2 times daily. Recheck labs in 3-4 weeks. - COMP METABOLIC PANEL - CBC + DIFF 4. Arthritis - ICD9: 716.90, ICD10: M19.90 Use naproxen sparingly for knee. - NAPROXEN 500 MG TABLET - Aware that he can have increased bleeding tendencies with this and plavix. Discussed treatment plan and patient voices understanding. Patient's questions answered appropriately. Medications and potential side effects were discussed and patient voices understanding. Return to the office as scheduled or as needed for worsening/no improvement. Maude Higgins APRN.CNP CNOV Observed: 12/20/2017 Status: COMPLETED Source: [place] 1:00 PM [facility] REPOSITORY Office Visit (FAMPWS) SHAYAN CULVER ([id number]) 1950 M Date Time Provider Department 12/20/17 1:00 PM MAUDE HIGGINS (CLARA) FAMPWS During your visit today, we recorded the following information about you: Pulse Respiration Blood pressure Weight 78/minute 12/minute 102/60 90.3 kg Maude Higgins APRN.CNP 12/20/2017 2:51 PM Signed This is a 67 year old male who presents today with: Patient presents with: Recheck: hypotension HISTORY OF PRESENT ILLNESS: Shayan Culver is a 67 year old male. Patient presents with: Recheck: hypotension Pt presents today for short interval follow-up. He was here last week for hospital f/u after having carotid done. He was having problems with hypotension and dizziness. His hemoglobin had dropped about 4 grams. He had 2 hematomas of the left groin. Refers that bruising is better. Refers that he is feeling better. Drinking 4 bottles of water daily. Eating better. Weight up 4 pounds. Hgb raising slowly. Refers that he is taking a daily. Refers that he takes the iron 2-3 times a day. Refers dizziness is improved. Restless legs improved. Refers blood pressure continues to fluctuate, but not getting low numbers any longer. Refers that not getting less than 90's systolic. REVIEW OF SYSTEMS GENERAL: No weight loss, malaise or fevers/chills HEENT: Negative for frequent or significant headaches, No changes in hearing or vision. RESPIRATORY: Negative for cough, hemoptysis, wheezing, dyspnea or shortness of breath CARDIOVASCULAR: Negative for chest pain, leg swelling, orthopnea, or palpitations GI: No nausea, vomiting, or diarrhea/constipation. No hematochezia/melena. No heartburn or reflux symptoms. MUSCULOSKELETAL: + knee pain. SKIN: Negative for lesions, rash, and itching. Refers bruising improved. ENDOCRINE: Negative for cold or heat intolerance, polyuria, polydipsia and goiter NEURO: No history of headaches, syncope, paralysis, seizures or tremors PAST MEDICAL HISTORY: PAST MEDICAL HISTORY Diagnosis Date - BPH (benign prostatic hyperplasia) - CAD (coronary artery disease) - Carotid stenosis L>R - COPD (chronic obstructive pulmonary disease) ([facility]) - Essential hypertension, benign Labile hyper and hypotensive - GERD (gastroesophageal reflux disease) 2012 - History of gastric bypass - Hyperlipidemia - Hypothyroidism - Major depressive disorder, single episode, moderate (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) 02/2013 CABG x 4 - Orthostatic hypotension - Reflux esophagitis Confirmed by Ba swallow. - Seasonal allergies Dr. Espana. - Stroke (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 - Unspecified asthma(493.90) - Vertebral artery occlusion left - Vitamin D deficiency 2012 PAST SURGICAL HISTORY Procedure Laterality Date - APPENDECTOMY 1961 - CABG (4) VEIN GRAFTS AND ARTERIAL GRAFT(S) 02/26/13 - CAROTID STENT PLACEMENT-INTRAOP Right 12/06/2017 - COLONOSCOP W/ OR W/O [facility] SPEC 09/15/13 few diverticula - 10 year follow up - COLONOSCOPY several - EGD W/O [facility] SPECIMEN W/BX 09/15/13 gastritis, gastric band in place, thin PEG site - EGD W/O OR W/BRUSH/WASH 03/28/2010 EGD - EGD W/O OR W/BRUSH/WASH 05/07/2017 EGD - HEART CATHETERIZATION 09/01/14 diffuse disease, no revascularizable target - HEART SURGERY HX - KIDNEY SURGERY HX - PAST SURGICAL HISTORY OF ~1977 kidney stones - PAST SURGICAL HISTORY OF 1976 intestinal bypass - PAST SURGICAL HISTORY OF ~1977 partial intestinal bypass reversal - PAST SURGICAL HISTORY OF 1994 gastric banding - PAST SURGICAL HISTORY OF 01/18/2005 throat cancer - PAST SURGICAL HISTORY OF 11/08/2017 Lt carotid arteriogram with stenting - PEG TUBE 03/20/2005 removed after 1 1/2y - REMOVAL GALLBLADDER ~1977 - XRAY CHEST 1 VIEW 06/06/15 hyperinflation and scarring ALLERGIES Floxin [Ofloxacin]; Flagyl [Metronidazole Hcl]; Ciprofloxacin; Morphine MEDICATIONS Current Outpatient Prescriptions: >IV - Start IV START IV naproxen (NAPROSYN) 500 mg tablet Take 1 tablet by mouth twice daily as needed (for pain/inflammation). Take with food. esomeprazole (NEXIUM) 40 mg capsule Take 1 capsule by mouth daily before breakfast. 1/2 hr before meal. diazePAM (VALIUM) 5 mg tablet Take 4 mg by mouth every 6 hours as needed (sleep). clopidogrel (PLAVIX) 75 mg tablet Take 1 tablet by mouth once daily. ranitidine (ZANTAC) 150 mg tablet Take 1 tablet by mouth twice daily. albuterol HFA (VENTOLIN HFA) 90 mcg/actuation inhaler Inhale 2 Puffs as instructed every 4 hours as needed for Wheezing/Shortness of Breath. fluticasone (FLONASE) 50 mcg/actuation nasal spray Use 1 [place] in each nostril daily at bedtime. guaiFENesin (MUCINEX) 1,200 mg Ta12 Take 1 tablet by mouth once daily. meclizine (ANTIVERT) 12.5 mg tab Take 1 tablet by mouth twice daily. levothyroxine (SYNTHROID) 75 mcg tablet Take 1 tablet by mouth once daily. sertraline (ZOLOFT) 100 mg tablet Take 0.5 tablets by mouth twice daily. atorvastatin (LIPITOR) 20 mg tablet Take 1 tablet by mouth once daily. aspirin 325 mg tablet Take 81 mg by mouth once daily. potassium chloride (K-TAB) 10 mEq tablet Take 1 tablet by mouth daily with breakfast. MULTIVITAMIN TAB Take one(1) tablet daily. No current facility-administered medications for this visit. FAMILY HISTORY Problem Relation Age of Onset - Diabetes Mother - Coronary Artery Disease Mother - Psychiatry Mother depression - Cancer Mother lung - Cancer Father esophagus - Asthma Father - esophageal cancer [OTHER] Father - Diabetes Brother - Alcohol/Drug Maternal Uncle - Alcohol/Drug Maternal Grandfather - Coronary Artery Disease Maternal Grandfather - Heart Maternal Grandfather - Alcohol/Drug Brother - Cancer Maternal Uncle throat - Coronary Artery Disease Maternal Aunt - Diabetes Maternal Grandmother - Diabetes Paternal Grandmother - Diabetes Maternal Aunt x2 - Heart Maternal Aunt x2 Social History Marital status: Spouse name: Jenna Years of education: Number of children: 2 Occupational History Occupation Employer Comment disability-[employer]* Social History Main Topics Smoking status: Never Smoker Smokeless tobacco: Never Used Comment: Parents smoked in childhood. Spouse smokes. Alcohol use: No Drug use: Yes Types: Marijuana Comment: Past marijuana, over 1 year ago. Sexual activity: Yes Partners with: Female EXAM: BP 102/60 (BP Site: Right Arm, BP Position: Sitting, BP Cuff Size: Regular Adult) Pulse 78 Resp 12 Wt 90.3 kg (199 lb) BMI 26.11 kg/m? PHYSICAL EXAM: General Appearance: Well appearing, alert, in no acute distress, well-hydrated, well nourished.. Skin: Skin color, texture, turgor normal, no suspicious rashes or lesions. Bruising of the left groin and thigh much improved. Some fading bruising still present. Head: Normocephalic, no masses, lesions, tenderness or abnormalities. Eyes: Anicteric sclera. Pupils are equally round and reactive to light. Extraocular movements are intact. . Lungs: Lungs clear to auscultation. No wheezing, rhonchi, rales. Heart: RRR without murmur, gallop, or rubs. No ectopy. Extremities: No deformities, edema, skin discoloration, clubbing or cyanosis. Good capillary refill. . Neurologic: Gait normal. ASSESSMENT/PLAN: 1. Orthostatic hypotension - ICD9: 458.0, ICD10: I95.1 (primary diagnosis) Pt doing better. He is tolerating fluids. Refers BP still fluctuates, but no significantly low BPs any longer. 2. Dizziness and giddiness - ICD9: 780.4, ICD10: R42 Improved. Keep drinking! 3. Anemia, unspecified type - ICD9: 285.9, ICD10: D64.9 Improving. Continue iron -- 1-2 times daily. Recheck labs in 3-4 weeks. - COMP METABOLIC PANEL - CBC + DIFF 4. Arthritis - ICD9: 716.90, ICD10: M19.90 Use naproxen sparingly for knee. - NAPROXEN 500 MG TABLET - Aware that he can have increased bleeding tendencies with this and plavix. Discussed treatment plan and patient voices understanding. Patient's questions answered appropriately. Medications and potential side effects were discussed and patient voices understanding. Return to the office as scheduled or as needed for worsening/no improvement. Maude Higgins APRN.CLARA Higgins APRN.CNP 12/20/2017 1:43 PM Signed 1. Labwork in a month. 2. Follow-up with Dr. Grove as scheduled. 3 If any problems/concerns prior to that, call. Referring Provider: SELF [[id number]] Allergies As of Date: 12/20/2017 Noted Allergy Reaction FLOXIN (OFLOXACIN) 10/09/2005 1 - Mental Status Change Comments: Severe depression. FLAGYL (METRONIDAZOLE HCL) 01/15/2005 1 - Mental Status Change Comments: Depression. CIPROFLOXACIN 02/16/2013 6 - Diarrhea 16 - Unknown Comments: ? diarrhea. MORPHINE 12/28/2016 1 - Mental Status Change Date Reviewed: 12/20/2017 Reviewed by: Wanda Salvador Slab Tripper - Fully Assessed Reason for Visit: Recheck [92] Cmt: hypotension Primary Visit Diagnosis:Orthostatic hypotension [I95.1] Other Visit Diagnoses:Dizziness and giddiness [R42] Anemia, unspecified type [D64.9] Arthritis [M19.90] Order(s):naproxen (NAPROSYN) 500 mg tabletTake 1 tablet by mouth twice daily as needed (for pain/inflammation). Take with food.Disp: 30 tabletRfl: 0 COMP METABOLIC PANEL [SQCMP] Order #: [id number] FUTURE CBC + DIFF [SQCBCDIF] Order #: [id number] FUTURE Prescriptions as of 12/20/2017 Sig: NAPROXEN 500 MG TABLET Take 1 tablet by mouth twice * COMPOUNDED PRESCRIPTION START IV ESOMEPRAZOLE MAGNESIUM 40 MG * Take 1 capsule by mouth daily* CLOPIDOGREL 75 MG TABLET Take 1 tablet by mouth once d* RANITIDINE 150 MG TABLET Take 1 tablet by mouth twice * ALBUTEROL SULFATE HFA 90 MCG/* Inhale 2 Puffs as instructed * FLUTICASONE 50 MCG/ACTUATION * Use 1 [place] in each nostril d* GUAIFENESIN ER 1,200 MG TABLE* Take 1 tablet by mouth once d* MECLIZINE 12.5 MG TABLET Take 1 tablet by mouth twice * LEVOTHYROXINE 75 MCG TABLET Take 1 tablet by mouth once d* SERTRALINE 100 MG TABLET Take 0.5 tablets by mouth twi* ATORVASTATIN 20 MG TABLET Take 1 tablet by mouth once d* ASPIRIN 325 MG TABLET Take 81 mg by mouth once genaro* POTASSIUM CHLORIDE ER 10 MEQ * Take 1 tablet by mouth daily * MULTIVITAMIN TABLET Take one(1) tablet daily. Problem List As Of Date 12/20/2017 Noted Resolved MALIGNANT NEOPL TONSIL [C09.9] INVALID FOR* DIZZINESS AND GIDDINESS [R42] INVALID FOR* More... 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 Depression [F32.9] INVALID FOR* More... GERD (gastroesophageal reflux disease) [K21.9] INVALID FOR* More... Vitamin d deficiency [E55.9] Hyperlipidemia [E78.5] More... Hearing loss [H91.90] INVALID FOR* BPPV (benign paroxysmal positional vertigo) [H8*INVALID FOR* Tonsillar cancer [C09.9] INVALID FOR* CAD (coronary artery disease) [I25.10] More... Carotid artery stenosis, symptomatic [I65.29] More... Encounter for screening colonoscopy [Z12.11] INVALID FOR* Diverticula of colon [K57.30] INVALID FOR* Gastritis [K29.70] INVALID FOR* Irritation around percutaneous endoscopic gastr*INVALID FOR* Essential hypertension, benign [I10] More... Labile blood pressure [R09.89] INVALID FOR* Other pain disorders related to psychological f*INVALID FOR* Adjustment disorder with mixed anxiety and depr*INVALID FOR* Asthma, moderate persistent, poorly-controlled * Arthritis [M19.90] INVALID FOR* More... Orthostatic hypotension [I95.1] INVALID FOR* More... COPD with chronic bronchitis (HCC) [J44.9] INVALID FOR* More... Hypertension [I10] INVALID FOR* More... Environmental allergies [Z91.09] INVALID FOR* More... Complication of gastrostomy tube (HCC) [K94.20] INVALID FOR* Reflux esophagitis [K21.0] More... Essential hypertension [I10] INVALID FOR* Internal carotid artery stenosis, bilateral [I6*INVALID FOR* Malnutrition of mild degree (HCC) [E44.1] INVALID FOR* History of common carotid artery stent placemen*INVALID FOR* History of carotid stenosis [Z86.79] INVALID FOR* Other instructions from your clinician: 1. Labwork in a month. 2. Follow-up with Dr. Grove as scheduled. 3 If any problems/concerns prior to that, call. Prescriptions ordered this encounter Disp Refills Start End NAPROXEN 500 MG TABLET 30 t* 0 12/20/2017 Route: ORAL Sig: Take 1 tablet by mouth twice daily as needed (for pain/inflammation). Take with food. Medications Discontinued During This Encounter diazePAM (VALIUM) 5 mg tablet 12/20/2017 Class: Historical Med Route: ORAL Sig: Take 4 mg by mouth every 6 hours as needed (sleep). Disc: Course of therapy completed naproxen (NAPROSYN) 500 mg tablet 30 t* 0 11/21/2017 12/20/2017 Route: ORAL Sig: Take 1 tablet by mouth twice daily as needed (for pain/inflammation). Take with food. Disc: Reason for discontinue is not on file. Disposition: Return if symptoms worsen or fail to improve. Follow-up and Disposition History Recorded Encounter Status:Closed by MAUDE HIGGINS CNP on 12/20/17 CBC AND DIFFERENTIAL Collected: 12/19/2017 Status: F Source: [place] 9:35 AM [facility] REPOSITORY TYPE CODE TESTS RESULT OUT OF REFERENCE UNITS RANGE LAB WBC 3.70-11.00 k/uL WBC High 11.27 LAB RBC 4.20-6.00 m/uL Low RBC 3.25 LAB HGB 13.0-17.0 g/dL Low Hemoglobin 10.7 LAB HCT 39.0-51.0 % Low Hematocrit 34.0 LAB MCV 80.0-100.0 fL MCV High 104.6 LAB MCH 26.0-34.0 pG MCH 32.9 LAB MCHC 30.5-36.0 g/dL MCHC 31.5 LAB RDWCV 11.5-15.0 % RDW-CV High 16.1 LAB PLTCT 150-400 k/uL Platelet Count 332 LAB MPV 9.0-12.7 fL MPV 10.0 LAB ANEUT % Neut% 71.4 LAB AANEUT 1.45-7.50 k/uL Abs Neut High 8.06 LAB ALYMP % Lymph% 13.0 LAB AALYMP 1.00-4.00 k/uL Abs Lymph 1.46 LAB AMONO % [place]% 8.2 LAB AAMONO <0.87 k/uL Abs [place] High 0.92 LAB AEOS % Eosin% 6.7 LAB AAEOS <0.46 k/uL Abs High Eosin 0.75 LAB ABASO % Baso% 0.7 LAB AABASO <0.11 k/uL Abs Baso 0.08 LAB AUNRBC 0 /100 WBC NRBCs 0.0 LAB ABNRBC <0.01 k/uL Absolute nRBC <0.01 LAB DTYP DTYPE Auto Diff Performed By: #### CBCDIF #### [facility] [address] [place], [place] [address] PROGRESS Observed: 12/12/2017 Status: COMPLETED Source: [place] 1:07 PM [facility] REPOSITORY HNO ID: [id number] Author: Maude Higgins (Hammer Operator) Service: (none) Author Type: Nurse Practitioner Type: Progress Notes Filed: 12/12/2017 4:47 PM Note Text: This is a 67 year old male who presents today with: Patient presents with: Hospital Follow Up: TCM HISTORY OF PRESENT ILLNESS: Shayan Culver is a 67 year old male. Patient presents with: Hospital Follow Up: TCM Pt presents today for hospital follow-up. Was admitted on 12/06/17 and discharged on 12/07/17 with PROCEDURE: Carotid arteriogram with placement of R ICA stent, Left groin access HOSPITAL COURSE: Labile blood pressure post procedure with stable neurologic exam. Patient discharged the following day. FINAL DIAGNOSIS: Right ICA stenosis s/p stenting Refers since Saturday, he has been feeling weak and dizzy. Refers that he has extensive bruising in the groin. Refers that he had a problem with bleeding during/after procedure, that pressure had to be held and protamine given several times. Refers the bruising is starting to get a little better. His Hgb noted to drop from 14.8 in October to 11.0 on 12/07. Today was 10.4. Gets orthostatic with position changes. Admits to not drinking much. Episode of chest pain last evening. Lasted several minutes. Did not feel necessary to go to ER, however reports it was similar to his heart pain in the past. No palpitation, diaphoresis, SOB. 10/12. REVIEW OF SYSTEMS GENERAL: + weakness. + restless legs. No fever/chills. HEENT: Negative for frequent or significant headaches, No changes in hearing or vision. NECK: Negative for lumps, goiter, pain and significant neck swelling RESPIRATORY: Negative for cough, hemoptysis, wheezing, dyspnea or shortness of breath CARDIOVASCULAR: Negative leg swelling, orthopnea, or palpitations. + chest pain last night 10/12. Lasted several minutes. States it was similar to heart pain. GI: No nausea, vomiting. No hematochezia/melena. Diarrhea X 1 over the weekend. Nothing since. : No history of dysuria, frequency or incontinence MUSCULOSKELETAL: + leg weakness SKIN: + groin bruising from recent procedure. ENDOCRINE: Negative for cold or heat intolerance, polyuria, polydipsia and goiter NEURO: No history of headaches, paralysis, seizures or tremors. Orthostatic dizziness. PAST MEDICAL HISTORY: PAST MEDICAL HISTORY Diagnosis Date - BPH (benign prostatic hyperplasia) - CAD (coronary artery disease) - Carotid stenosis L>R - COPD (chronic obstructive pulmonary disease) ([facility]) - Essential hypertension, benign Labile hyper and hypotensive - GERD (gastroesophageal reflux disease) 2012 - History of gastric bypass - Hyperlipidemia - Hypothyroidism - Major depressive disorder, single episode, moderate (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) 02/2013 CABG x 4 - Orthostatic hypotension - Reflux esophagitis Confirmed by Ba swallow. - Seasonal allergies Dr. Espana. - Stroke (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 - Unspecified asthma(493.90) - Vertebral artery occlusion left - Vitamin D deficiency 2012 PAST SURGICAL HISTORY Procedure Laterality Date - APPENDECTOMY 1961 - CABG (4) VEIN GRAFTS AND ARTERIAL GRAFT(S) 02/26/13 - CAROTID STENT PLACEMENT-INTRAOP Right 12/06/2017 - COLONOSCOP W/ OR W/O [facility] SPEC 09/15/13 few diverticula - 10 year follow up - COLONOSCOPY several - EGD W/O [facility] SPECIMEN W/BX 09/15/13 gastritis, gastric band in place, thin PEG site - EGD W/O OR W/BRUSH/WASH 03/28/2010 EGD - EGD W/O OR W/BRUSH/WASH 05/07/2017 EGD - HEART CATHETERIZATION 09/01/14 diffuse disease, no revascularizable target - HEART SURGERY HX - KIDNEY SURGERY HX - PAST SURGICAL HISTORY OF ~1977 kidney stones - PAST SURGICAL HISTORY OF 1976 intestinal bypass - PAST SURGICAL HISTORY OF ~1977 partial intestinal bypass reversal - PAST SURGICAL HISTORY OF 1994 gastric banding - PAST SURGICAL HISTORY OF 01/18/2005 throat cancer - PAST SURGICAL HISTORY OF 11/08/2017 Lt carotid arteriogram with stenting - PEG TUBE 03/20/2005 removed after 1 12y - REMOVAL GALLBLADDER ~1977 - XRAY CHEST 1 VIEW 06/06/15 hyperinflation and scarring ALLERGIES Floxin [Ofloxacin]; Flagyl [Metronidazole Hcl]; Ciprofloxacin; Morphine MEDICATIONS Current Outpatient Prescriptions: naproxen (NAPROSYN) 500 mg tablet Take 1 tablet by mouth twice daily as needed (for pain/inflammation). Take with food. esomeprazole (NEXIUM) 40 mg capsule Take 1 capsule by mouth daily before breakfast. 1/2 hr before meal. diazePAM (VALIUM) 5 mg tablet Take 4 mg by mouth every 6 hours as needed (sleep). clopidogrel (PLAVIX) 75 mg tablet Take 1 tablet by mouth once daily. ranitidine (ZANTAC) 150 mg tablet Take 1 tablet by mouth twice daily. albuterol HFA (VENTOLIN HFA) 90 mcg/actuation inhaler Inhale 2 Puffs as instructed every 4 hours as needed for Wheezing/Shortness of Breath. fluticasone (FLONASE) 50 mcg/actuation nasal spray Use 1 [place] in each nostril daily at bedtime. guaiFENesin (MUCINEX) 1,200 mg Ta12 Take 1 tablet by mouth once daily. meclizine (ANTIVERT) 12.5 mg tab Take 1 tablet by mouth twice daily. levothyroxine (SYNTHROID) 75 mcg tablet Take 1 tablet by mouth once daily. sertraline (ZOLOFT) 100 mg tablet Take 0.5 tablets by mouth twice daily. atorvastatin (LIPITOR) 20 mg tablet Take 1 tablet by mouth once daily. aspirin 325 mg tablet Take 81 mg by mouth once daily. potassium chloride (K-TAB) 10 mEq tablet Take 1 tablet by mouth daily with breakfast. MULTIVITAMIN TAB Take one(1) tablet daily. No current facility-administered medications for this visit. FAMILY HISTORY Problem Relation Age of Onset - Diabetes Mother - Coronary Artery Disease Mother - Psychiatry Mother depression - Cancer Mother lung - Cancer Father esophagus - Asthma Father - esophageal cancer [OTHER] Father - Diabetes Brother - Alcohol/Drug Maternal Uncle - Alcohol/Drug Maternal Grandfather - Coronary Artery Disease Maternal Grandfather - Heart Maternal Grandfather - Alcohol/Drug Brother - Cancer Maternal Uncle throat - Coronary Artery Disease Maternal Aunt - Diabetes Maternal Grandmother - Diabetes Paternal Grandmother - Diabetes Maternal Aunt x2 - Heart Maternal Aunt x2 Social History Marital status: Spouse name: Jenna Years of education: Number of children: 2 Occupational History Occupation Employer Comment disability-[employer]* Social History Main Topics Smoking status: Never Smoker Smokeless tobacco: Never Used Comment: Parents smoked in childhood. Spouse smokes. Alcohol use: No Drug use: Yes Types: Marijuana Comment: Past marijuana, over 1 year ago. Sexual activity: Yes Partners with: Female EXAM: BP 100/58 (BP Site: Right Arm, BP Position: Sitting, BP Cuff Size: Regular Adult) Pulse 62 Resp 12 Wt 88.5 kg (195 lb) BMI 25.59 kg/m? PHYSICAL EXAM: General Appearance: Pale, alert, in no acute distress, well nourished.. Skin: left groin with dressing that is coming off. Intact suture under dressing. Appx baseball sized hematoma present. Extensive bruising over mons pubis, penis, inner and anterior thigh. No bruit heard. Head: Normocephalic, no masses, lesions, tenderness or abnormalities. Eyes: Anicteric sclera. Extraocular movements are intact. . Oropharynx: Lips, mucosa, and tongue dry, teeth and gums normal, oropharynx normal. Neck: Supple, no adenopathy; thyroid symmetric, normal size, no bruits. Lungs: few scattered exp wheezes, otherwise, clear to auscultation. No wheezing, rhonchi, rales. Heart: RRR without murmur, gallop, or rubs. No ectopy. Abdomen: Abdomen soft, non-tender. Bowel sounds normal. No masses, organomegaly. Scar from previous gastrostomy tube. Extremities: No deformities, edema. Compression stockings on. Peripheral Pulses: Normal. Neurologic: Gait normal. ASSESSMENT/PLAN: 1. Internal carotid artery stenosis, bilateral - ICD9: 433.10, 433.30, ICD10: I65.23 (primary diagnosis) Right ICA stent on 12/06/17. Had Left ICA stent last month. 2. History of common carotid artery stent placement - ICD9: V45.89, ICD10: Z98.890, Z95.828 Right ICA stent on 12/06/17. Had left ICA stent last month. 3. Hematoma of groin, initial encounter - ICD9: 922.2, ICD10: S30.1XXA - US GROIN UNL VAS LAB -- r/0 pseudoaneurysm and/or retroperitoneal bleed. No bruit heard. However Hgb dropped from 14.8 in october, to 11 on 12/07 to 10.4 now. orthodontic treatment coordinator was able to facilitate having patient go directly to vascular lab for u/s. 4. Hemorrhage due to vascular prosthetic devices, implants and grafts, initial encounter ([facility]) - ICD9: 996.74, ICD10: T82.838A - US GROIN UNL VAS LAB - However Hgb dropped from 14.8 in october, to 11 on 12/07 to 10.4 now. Encouraged to start iron twice daily X 1 week; then daily. Aware to increase fluids/fruits/vegetable to help prevent constipation. 5. Orthostatic hypotension - ICD9: 458.0, ICD10: I95.1 + ortho drop -- 140 supine, 90 standing. Encouraged to push fluids. Will return tomorrow for some IVF - COMPOUNDED PRESCRIPTION - SODIUM CHLORIDE 0.9 % INTRAVENOUS SOLUTION 6. Chest pain, unspecified type - ICD9: 786.50, ICD10: R07.9 Chest pain likely coronary ischemia related symptom - Electrocardiogram: Normal Conversation with patient that if develops heart pain again, he should be evaluated by ER via 911. Patient and voices understanding. - ECG COMPLETE W INTERPRETATION Discussed treatment plan and patient voices understanding. Patient's questions answered appropriately. Medications and potential side effects were discussed and patient voices understanding. Return to the office as scheduled or as needed for worsening/no improvement. Maude Higgins APRN.[id number] M60 ARMOR CREWMAN PROGRESS Observed: 12/12/2017 Status: COMPLETED Source: [place] 1:07 PM [facility] REPOSITORY HNO ID: [id number] Author: Wanda Salvador Cma Service: (none) Author Type: (none) Type: Progress Notes Filed: 12/12/2017 4:47 PM Note Text: Transitional Care Management Progress Note The patients TCM visit was performed within the 7 days of discharge. Patient's Date of discharge: 12/07/17 Date of initial coordinator contact after discharge: 12/10/17 Discharge diagnosis: right ICA stenosis Medication review completed Yes Wanda Salvador Cma Provider Documentation: In follow-up of hospitalization, Shayan Culver is a 67 year old male with the chief complaint of hospital follow up-TCM I have reviewed the patient?s last hospital course including diagnostic testing performed during this hospitalization, their discharge medications, and my assessment and plan with the patient and any family members present at today?s visit. CNOV Observed: 12/12/2017 Status: COMPLETED Source: [place] 1:00 PM [facility] REPOSITORY Office Visit (FAMPWS) SHAYAN CULVER ([id number]) 1950 M Date Time Provider Department 12/12/17 1:00 PM MAUDE HIGGINS ([id number] M60 ARMOR CREWMAN) FAMPWS During your visit today, we recorded the following information about you: Pulse Respiration Blood pressure Weight 100/minute 12/minute 92/71 88.5 kg Wanda Salvador Cma 12/12/2017 4:47 PM Signed Transitional Care Management Progress Note The patients TCM visit was performed within the 7 days of discharge. Patient's Date of discharge: 12/07/17 Date of initial coordinator contact after discharge: 12/10/17 Discharge diagnosis: right ICA stenosis Medication review completed Yes Wanda Salvador Cma Provider Documentation: In follow-up of hospitalization, Shayan Culver is a 67 year old male with the chief complaint of hospital follow up-TCM I have reviewed the patient?s last hospital course including diagnostic testing performed during this hospitalization, their discharge medications, and my assessment and plan with the patient and any family members present at today?s visit. Maude Higgins (Hammer Operator) 12/12/2017 4:47 PM Signed This is a 67 year old male who presents today with: Patient presents with: Hospital Follow Up: TCM HISTORY OF PRESENT ILLNESS: Shayan Culver is a 67 year old male. Patient presents with: Hospital Follow Up: TCM Pt presents today for hospital follow-up. Was admitted on 12/06/17 and discharged on 12/07/17 with PROCEDURE: Carotid arteriogram with placement of R ICA stent, Left groin access HOSPITAL COURSE: Labile blood pressure post procedure with stable neurologic exam. Patient discharged the following day. FINAL DIAGNOSIS: Right ICA stenosis s/p stenting Refers since Saturday, he has been feeling weak and dizzy. Refers that he has extensive bruising in the groin. Refers that he had a problem with bleeding during/after procedure, that pressure had to be held and protamine given several times. Refers the bruising is starting to get a little better. His Hgb noted to drop from 14.8 in October to 11.0 on 12/07. Today was 10.4. Gets orthostatic with position changes. Admits to not drinking much. Episode of chest pain last evening. Lasted several minutes. Did not feel necessary to go to ER, however reports it was similar to his heart pain in the past. No palpitation, diaphoresis, SOB. 10/12. REVIEW OF SYSTEMS GENERAL: + weakness. + restless legs. No fever/chills. HEENT: Negative for frequent or significant headaches, No changes in hearing or vision. NECK: Negative for lumps, goiter, pain and significant neck swelling RESPIRATORY: Negative for cough, hemoptysis, wheezing, dyspnea or shortness of breath CARDIOVASCULAR: Negative leg swelling, orthopnea, or palpitations. + chest pain last night 10/12. Lasted several minutes. States it was similar to heart pain. GI: No nausea, vomiting. No hematochezia/melena. Diarrhea X 1 over the weekend. Nothing since. : No history of dysuria, frequency or incontinence MUSCULOSKELETAL: + leg weakness SKIN: + groin bruising from recent procedure. ENDOCRINE: Negative for cold or heat intolerance, polyuria, polydipsia and goiter NEURO: No history of headaches, paralysis, seizures or tremors. Orthostatic dizziness. PAST MEDICAL HISTORY: PAST MEDICAL HISTORY Diagnosis Date - BPH (benign prostatic hyperplasia) - CAD (coronary artery disease) - Carotid stenosis L>R - COPD (chronic obstructive pulmonary disease) (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) 02/2013 CABG x 4 - Orthostatic hypotension - Reflux esophagitis Confirmed by Ba swallow. - Seasonal allergies Dr. Espana. - Stroke (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 - Unspecified asthma(493.90) - Vertebral artery occlusion left - Vitamin D deficiency 2012 PAST SURGICAL HISTORY Procedure Laterality Date - APPENDECTOMY 1961 - CABG (4) VEIN GRAFTS AND ARTERIAL GRAFT(S) 02/26/13 - CAROTID STENT PLACEMENT-INTRAOP Right 12/06/2017 - COLONOSCOP W/ OR W/O BRSH SPEC 09/15/13 few diverticula - 10 year follow up - COLONOSCOPY several - EGD W/O BRSH SPECIMEN W/BX 09/15/13 gastritis, gastric band in place, thin PEG site - EGD W/O OR W/BRUSH/WASH 03/28/2010 EGD - EGD W/O OR W/BRUSH/WASH 05/07/2017 EGD - HEART CATHETERIZATION 09/01/14 diffuse disease, no revascularizable target - HEART SURGERY HX - KIDNEY SURGERY HX - PAST SURGICAL HISTORY OF ~1977 kidney stones - PAST SURGICAL HISTORY OF 1976 intestinal bypass - PAST SURGICAL HISTORY OF ~1977 partial intestinal bypass reversal - PAST SURGICAL HISTORY OF 1994 gastric banding - PAST SURGICAL HISTORY OF 01/18/2005 throat cancer - PAST SURGICAL HISTORY OF 11/08/2017 Lt carotid arteriogram with stenting - PEG TUBE 03/20/2005 removed after 1 1/2y - REMOVAL GALLBLADDER ~1977 - XRAY CHEST 1 VIEW 06/06/15 hyperinflation and scarring ALLERGIES Floxin [Ofloxacin]; Flagyl [Metronidazole Hcl]; Ciprofloxacin; Morphine MEDICATIONS Current Outpatient Prescriptions: naproxen (NAPROSYN) 500 mg tablet Take 1 tablet by mouth twice daily as needed (for pain/inflammation). Take with food. esomeprazole (NEXIUM) 40 mg capsule Take 1 capsule by mouth daily before breakfast. 1/2 hr before meal. diazePAM (VALIUM) 5 mg tablet Take 4 mg by mouth every 6 hours as needed (sleep). clopidogrel (PLAVIX) 75 mg tablet Take 1 tablet by mouth once daily. ranitidine (ZANTAC) 150 mg tablet Take 1 tablet by mouth twice daily. albuterol HFA (VENTOLIN HFA) 90 mcg/actuation inhaler Inhale 2 Puffs as instructed every 4 hours as needed for Wheezing/Shortness of Breath. fluticasone (FLONASE) 50 mcg/actuation nasal spray Use 1 [place] Century in each nostril daily at bedtime. guaiFENesin (MUCINEX) 1,200 mg Ta12 Take 1 tablet by mouth once daily. meclizine (ANTIVERT) 12.5 mg tab Take 1 tablet by mouth twice daily. levothyroxine (SYNTHROID) 75 mcg tablet Take 1 tablet by mouth once daily. sertraline (ZOLOFT) 100 mg tablet Take 0.5 tablets by mouth twice daily. atorvastatin (LIPITOR) 20 mg tablet Take 1 tablet by mouth once daily. aspirin 325 mg tablet Take 81 mg by mouth once daily. potassium chloride (K-TAB) 10 mEq tablet Take 1 tablet by mouth daily with breakfast. MULTIVITAMIN TAB Take one(1) tablet daily. No current facility-administered medications for this visit. FAMILY HISTORY Problem Relation Age of Onset - Diabetes Mother - Coronary Artery Disease Mother - Psychiatry Mother depression - Cancer Mother lung - Cancer Father esophagus - Asthma Father - esophageal cancer [OTHER] Father - Diabetes Brother - Alcohol/Drug Maternal Uncle - Alcohol/Drug Maternal Grandfather - Coronary Artery Disease Maternal Grandfather - Heart Maternal Grandfather - Alcohol/Drug Brother - Cancer Maternal Uncle throat - Coronary Artery Disease Maternal Aunt - Diabetes Maternal Grandmother - Diabetes Paternal Grandmother - Diabetes Maternal Aunt x2 - Heart Maternal Aunt x2 Social History Marital status: Spouse name: Jenna Years of education: Number of children: 2 Occupational History Occupation Employer Comment disability-[employer]* Social History Main Topics Smoking status: Never Smoker Smokeless tobacco: Never Used Comment: Parents smoked in childhood. Spouse smokes. Alcohol use: No Drug use: Yes Types: Marijuana Comment: Past marijuana, over 1 year ago. Sexual activity: Yes Partners with: Female EXAM: BP 100/58 (BP Site: Right Arm, BP Position: Sitting, BP Cuff Size: Regular Adult) Pulse 62 Resp 12 Wt 88.5 kg (195 lb) BMI 25.59 kg/m? PHYSICAL EXAM: General Appearance: Pale, alert, in no acute distress, well nourished.. Skin: left groin with dressing that is coming off. Intact suture under dressing. Appx baseball sized hematoma present. Extensive bruising over mons pubis, penis, inner and anterior thigh. No bruit heard. Head: Normocephalic, no masses, lesions, tenderness or abnormalities. Eyes: Anicteric sclera. Extraocular movements are intact. . Oropharynx: Lips, mucosa, and tongue dry, teeth and gums normal, oropharynx normal. Neck: Supple, no adenopathy; thyroid symmetric, normal size, no bruits. Lungs: few scattered exp wheezes, otherwise, clear to auscultation. No wheezing, rhonchi, rales. Heart: RRR without murmur, gallop, or rubs. No ectopy. Abdomen: Abdomen soft, non-tender. Bowel sounds normal. No masses, organomegaly. Scar from previous gastrostomy tube. Extremities: No deformities, edema. Compression stockings on. Peripheral Pulses: Normal. Neurologic: Gait normal. ASSESSMENT/PLAN: 1. Internal carotid artery stenosis, bilateral - ICD9: 433.10, 433.30, ICD10: I65.23 (primary diagnosis) Right ICA stent on 12/06/17. Had Left ICA stent last month. 2. History of common carotid artery stent placement - ICD9: V45.89, ICD10: Z98.890, Z95.828 Right ICA stent on 12/06/17. Had left ICA stent last month. 3. Hematoma of groin, initial encounter - ICD9: 922.2, ICD10: S30.1XXA - US GROIN UNL VAS LAB -- r/0 pseudoaneurysm and/or retroperitoneal bleed. No bruit heard. However Hgb dropped from 14.8 in october, to 11 on 12/07 to 10.4 now. orthodontic treatment coordinator was able to facilitate having patient go directly to vascular lab for u/s. 4. Hemorrhage due to vascular prosthetic devices, implants and grafts, initial encounter ([facility]) - ICD9: 996.74, ICD10: T82.838A - US GROIN UNL VAS LAB - However Hgb dropped from 14.8 in october, to 11 on 12/07 to 10.4 now. Encouraged to start iron twice daily X 1 week; then daily. Aware to increase fluids/fruits/vegetable to help prevent constipation. 5. Orthostatic hypotension - ICD9: 458.0, ICD10: I95.1 + ortho drop -- 140 supine, 90 standing. Encouraged to push fluids. Will return tomorrow for some IVF - COMPOUNDED PRESCRIPTION - SODIUM CHLORIDE 0.9 % INTRAVENOUS SOLUTION 6. Chest pain, unspecified type - ICD9: 786.50, ICD10: R07.9 Chest pain likely coronary ischemia related symptom - Electrocardiogram: Normal Conversation with patient that if develops heart pain again, he should be evaluated by ER via 911. Patient and voices understanding. - ECG COMPLETE W INTERPRETATION Discussed treatment plan and patient voices understanding. Patient's questions answered appropriately. Medications and potential side effects were discussed and patient voices understanding. Return to the office as scheduled or as needed for worsening/no improvement. Maude Higgins APRN.[id number] M60 ARMOR CREWMAN Maude Higgins ([facility]) 12/12/2017 2:23 PM Signed 1. Start ferrous sulfate twice daily X 1 week; then decrease to daily. 2. Increase fluids. 3. If you get chest pain that does not quickly subside, or is accompanied by shortness of breast, dizziness, sweatiness, etc -- to the ER via 911. 4. If symptoms become worse -- more dizziness, feeling faint, etc -- to the ER. 5. Return tomorrow for some IV hydration. Referring Provider: SELF [[id number]] Allergies As of Date: 12/12/2017 Noted Allergy Reaction FLOXIN (OFLOXACIN) 10/09/2005 1 - Mental Status Change Comments: Severe depression. FLAGYL (METRONIDAZOLE HCL) 01/15/2005 1 - Mental Status Change Comments: Depression. CIPROFLOXACIN 02/16/2013 6 - Diarrhea 16 - Unknown Comments: ? diarrhea. MORPHINE 12/28/2016 1 - Mental Status Change Date Reviewed: 12/12/2017 Reviewed by: Wanda Salvador Cma - Fully Assessed Reason for Visit: Hospital Follow Up [177] Cmt: TCM Primary Visit Diagnosis:Internal carotid artery stenosis, bilateral [I65.23] Other Visit Diagnoses:History of common carotid artery stent placement [Z98.890, Z95.828] Hematoma of groin, initial encounter [S30.1XXA] Hemorrhage due to vascular prosthetic devices, implants and grafts, initial encounter ([facility]) [T82.838A] Orthostatic hypotension [I95.1] Chest pain, unspecified type [R07.9] Order(s):US GROIN [facility]L VAS LAB [[id number]] Order #: [id number] FUTURE >IV - Start IVSTART IVDisp: 1 EachRfl: 0 [START ON 12/13/2017] NaCl 0.9% iv infusionDisp: Rfl: ECG COMPLETE W INTERPRETATION [ECG01] Order #: [id number] FUTURE CBC + DIFF [SQCBCDIF] Order #: [id number] FUTURE Prescriptions as of 12/12/2017 Sig: COMPOUNDED PRESCRIPTION START IV NAPROXEN 500 MG TABLET Take 1 tablet by mouth twice * ESOMEPRAZOLE MAGNESIUM 40 MG * Take 1 capsule by mouth daily* DIAZEPAM 5 MG TABLET Take 4 mg by mouth every 6 ho* CLOPIDOGREL 75 MG TABLET Take 1 tablet by mouth once d* RANITIDINE 150 MG TABLET Take 1 tablet by mouth twice * ALBUTEROL SULFATE HFA 90 MCG/* Inhale 2 Puffs as instructed * FLUTICASONE 50 MCG/ACTUATION * Use 1 [place] in each nostril d* GUAIFENESIN ER 1,200 MG TABLE* Take 1 tablet by mouth once d* MECLIZINE 12.5 MG TABLET Take 1 tablet by mouth twice * LEVOTHYROXINE 75 MCG TABLET Take 1 tablet by mouth once d* SERTRALINE 100 MG TABLET Take 0.5 tablets by mouth twi* ATORVASTATIN 20 MG TABLET Take 1 tablet by mouth once d* ASPIRIN 325 MG TABLET Take 81 mg by mouth once genaro* POTASSIUM CHLORIDE ER 10 MEQ * Take 1 tablet by mouth daily * MULTIVITAMIN TABLET Take one(1) tablet daily. Problem List As Of Date 12/12/2017 Noted Resolved MALIGNANT NEOPL TONSIL [C09.9] INVALID FOR* DIZZINESS AND GIDDINESS [R42] INVALID FOR* More... 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 Depression [F32.9] INVALID FOR* More... GERD (gastroesophageal reflux disease) [K21.9] INVALID FOR* More... Vitamin d deficiency [E55.9] Hyperlipidemia [E78.5] More... Hearing loss [H91.90] INVALID FOR* BPPV (benign paroxysmal positional vertigo) [H8*INVALID FOR* Tonsillar cancer [C09.9] INVALID FOR* CAD (coronary artery disease) [I25.10] More... Carotid artery stenosis, symptomatic [I65.29] More... Encounter for screening colonoscopy [Z12.11] INVALID FOR* Diverticula of colon [K57.30] INVALID FOR* Gastritis [K29.70] INVALID FOR* Irritation around percutaneous endoscopic gastr*INVALID FOR* Essential hypertension, benign [I10] More... Labile blood pressure [R09.89] INVALID FOR* Other pain disorders related to psychological f*INVALID FOR* Adjustment disorder with mixed anxiety and depr*INVALID FOR* Asthma, moderate persistent, poorly-controlled * Arthritis [M19.90] INVALID FOR* More... Orthostatic hypotension [I95.1] INVALID FOR* More... COPD with chronic bronchitis (HCC) [J44.9] INVALID FOR* More... Hypertension [I10] INVALID FOR* More... Environmental allergies [Z91.09] INVALID FOR* More... Complication of gastrostomy tube (HCC) [K94.20] INVALID FOR* Reflux esophagitis [K21.0] More... Essential hypertension [I10] INVALID FOR* Internal carotid artery stenosis, bilateral [I6*INVALID FOR* Malnutrition of mild degree (HCC) [E44.1] INVALID FOR* History of common carotid artery stent placemen*INVALID FOR* History of carotid stenosis [Z86.79] INVALID FOR* Other instructions from your clinician: 1. Start ferrous sulfate twice daily X 1 week; then decrease to daily. 2. Increase fluids. 3. If you get chest pain that does not quickly subside, or is accompanied by shortness of breast, dizziness, sweatiness, etc -- to the ER via 911. 4. If symptoms become worse -- more dizziness, feeling faint, etc -- to the ER. 5. Return tomorrow for some IV hydration. Prescriptions ordered this encounter Disp Refills Start End COMPOUNDED PRESCRIPTION 1 Ea* 0 12/12/2017 Class: Back Office Sig: START IV SODIUM CHLORIDE 0.9 % INTRAVENOUS SO* 12/13/2017 12/13/2017 Route: INTRAVENOUS Encounter Status:Closed by MAUDE HIGGINS CNP on 12/12/17 PROGRESS Observed: 12/12/2017 Status: COMPLETED Source: [place] 11:58 AM [facility] [facility] [place] REPOSITORY HNO ID: [id number] Author: Maude (Clara) Ronaldo Service: (none) Author Type: Nurse Practitioner Type: Progress Notes Filed: 05/16/2018 6:59 AM Note Text: Order signed. BMP PLUS [facility] Collected: 12/12/2017 Status: F Source: [place] 8:58 AM [facility] REPOSITORY TYPE CODE TESTS RESULT OUT OF REFERENCE UNITS RANGE LAB NA 128-145 mmol/L Sodium 138 LAB K 3.6-5.1 mmol/L Low Potassium 3.4 LAB CL 98-108 mmol/L Chloride 106 LAB CO2 18-33 mmol/L CO2 27 LAB CRET 0.6-1.2 mg/dL Creatinine 0.90 LAB BUN 7-22 mg/dL BUN 12 LAB GLU 73-118 mg/dL Glucose 104 LAB CA 8.0-10.3 mg/dL Calcium, Total 9.0 LAB MG 1.6-2.3 mg/dL Magnesium 1.8 LAB AGAP 9-18 mmol/L Low Anion Gap 5 LAB GFRAA eGFR- >60 Amer. LAB GFRNAA . eGFR-All Other Races >60 Result Comment: eGFR (Estimated GFR) Units of measure: mL/min/1.73 meters squared eGFR is derived from the reexpressed MDRD Study equation using the following parameters: serum creatinine, age, gender and race. The creatinine assay has been calibrated to be traceable to IDMS. An eGFR <60 mL/min/1.73m2 for >3 months is consistent with chronic kidney disease. Refer to KDOQI guidelines for clinical interpretation. In patients with unstable renal function, e.g. those with acute kidney injury, the eGFR may not accurately reflect actual GFR. [place] CBC Collected: 12/12/2017 Status: F Source: [place] 8:58 AM [facility] REPOSITORY TYPE CODE TESTS RESULT OUT OF REFERENCE UNITS RANGE LAB WWBC 3.70-11.00 k/uL [place] WBC 9.09 LAB WRBC 4.20-6.00 m/uL Low [place] RBC 3.15 LAB WHGB 13.0-17.0 g/dL Low [place] Hemoglobin 10.4 LAB WHCT 39.0-51.0 % Low [place] Hematocrit 31.4 LAB WMCV 80.0-100.0 fL [place] MCV 99.7 LAB WMCH 26.0-34.0 pg [place] MCH 33.0 LAB WMCHC 30.5-36.0 g/dL [place] MCHC 33.1 LAB WRDW 11.5-15.0 % [place] RDW 14.2 LAB WPLT 150-400 k/uL [place] Platelet Cnt 258 LAB WMPV 9.0-12.7 fL [place] MPV 10.5 Result Comment: Test performed at: [facility], [address] [place] [address] Rd[address] [place] [address]. LIPID PANEL, BASIC Collected: 12/12/2017 Status: F Source: [place] 8:58 AM [facility] [place] REPOSITORY TYPE CODE TESTS RESULT OUT OF REFERENCE UNITS RANGE LAB CHOL <200 mg/dL Cholesterol 189 Result Comment: <200 mg/dL, Desirable 200-239 mg/dL, Borderline high >239 mg/dL, High LAB TRIGLY <150 mg/dL Triglyceride High 179 Result Comment: <150 mg/dL, Normal 150-199 mg/dL, Borderline high 200-499 mg/dL, High >499 mg/dL, Very high LAB HDL >39 mg/dL HDL-Cholesterol 40 Result Comment: 40-59 mg/dL, Acceptable >59 mg/dL, High: Negative risk factor for coronary heart disease <40 mg/dL, Low: Positive risk factor for coronary heart disease LAB LDL <100 mg/dL LDL-Cholesterol High 113 Result Comment: <100 mg/dL, Optimal 100-129 mg/dL, Near optimal/above optimal 130-159 mg/dL, Borderline high 160-189 mg/dL, High >189 mg/dL, Very high Secondary prevention optimal LDL Cholesterol levels are recommended to be < 70 mg/dL LAB NONHDL <130 mg/dL Non HDL High Cholesterol 149 Result Comment: <130 mg/dL, Optimal 130-159 mg/dL, Near optimal/above optimal 160-189 mg/dL, Borderline high 190-219 mg/dL, High >219 mg/dL, Very high Secondary prevention optimal non HDL Cholesterol levels are recommended to be < 100 mg/dL LAB FT hrs Fasting Time 2 LAB VLDL <30 mg/dL High VLDL Cholesterol 36 LAB TCHDL <5.10 TC:HDL Ratio 4.73 LAB LDLHDL <2.54 High LDL:HDL Ratio 2.83 Result Comment: Reference: 1. National Cholesterol Education Program ATP III Guideline At-A-Glance Quick Desk Reference: National Heart, Lung, and Blood [place]. National Institutes of Health. 2001: NIH Publication No. 01-3305. 2. An International Atherosclerosis Society position paper: global recommendations for the management of dyslipidemia: executive summary, Atherosclerosis. 2014: 232(2):410-413. Performed By: #### LIPB #### [facility] [address] [id number] CNPTOUTREASARA Observed: 12/12/2017 Status: COMPLETED Source: [place] 12:00 AM [facility] REPOSITORY Patient Outreach (INTMWS) SHAYAN CULVER ([id number]) 1950 M Date Time Provider Department 12/12/17 GRACIELA OCAMPO During your visit today, we recorded the following information about you: Graciela Capps RN 05/16/2018 6:59 AM Signed PRIMARY CARE COORDINATION IN OFFICE VISIT WITH PCP Patient has been identified by name and date of . PCP Assessment/Plan: Reviewed PCP plan with patient using Teach Back Pt has lg hematoma on lower abd and is discolored thru perineum, thighs, around sides and down under to buttock area. He is pale and feels weak. Orthostatics positive. He states he is unable to drink lg amts water because of previous gastric banding. Usually drinks only enough to relieve his dry mouth. He will be havingbvascular US today and IV hydration all day tomorrow. PCC Plan of Care: Patient concerns: States if this was the first side done, I'd never have the 2nd one done. Patient goals: To gain strength and not be so dizzy when standing. PCC Interventions: Assist with scheduling [facility] US today. Next Office Visit: 02/25/2018 Plan For Next Call: Graciela Capps RN December 12, 2017 Allergies As of Date: 12/12/2017 Noted Allergy Reaction FLOXIN (OFLOXACIN) 10/09/2005 1 - Mental Status Change Comments: Severe depression. FLAGYL (METRONIDAZOLE HCL) 01/15/2005 1 - Mental Status Change Comments: Depression. CIPROFLOXACIN 02/16/2013 6 - Diarrhea 16 - Unknown Comments: ? diarrhea. MORPHINE 12/28/2016 1 - Mental Status Change Date Reviewed: 12/12/2017 Reviewed by: Wanda Salvador Slab Tripper - Fully Assessed Reason for Visit: Mold Maintenance Technician Hospital Follow Up [1009] Prescriptions as of 12/12/2017 Sig: X COMPOUNDED PRESCRIPTION START IV X NAPROXEN 500 MG TABLET Take 1 tablet by mouth twice * ESOMEPRAZOLE MAGNESIUM 40 MG * Take 1 capsule by mouth daily* X DIAZEPAM 5 MG TABLET Take 4 mg by mouth every 6 ho* CLOPIDOGREL 75 MG TABLET Take 1 tablet by mouth once d* X RANITIDINE 150 MG TABLET Take 1 tablet by mouth twice * GUAIFENESIN ER 1,200 MG TABLE* Take 1 tablet by mouth once d* X ALBUTEROL SULFATE HFA 90 MCG/* Inhale 2 Puffs as instructed * X FLUTICASONE 50 MCG/ACTUATION * Use 1 [place] in each nostril d* MECLIZINE 12.5 MG TABLET Take 1 tablet by mouth twice * LEVOTHYROXINE 75 MCG TABLET Take 1 tablet by mouth once d* SERTRALINE 100 MG TABLET Take 0.5 tablets by mouth twi* X ATORVASTATIN 20 MG TABLET Take 1 tablet by mouth once d* ASPIRIN 325 MG TABLET Take 81 mg by mouth once genaro* POTASSIUM CHLORIDE ER 10 MEQ * Take 1 tablet by mouth daily * MULTIVITAMIN TABLET Take one(1) tablet daily. Problem List As Of Date 12/12/2017 Noted Resolved MALIGNANT NEOPL TONSIL [C09.9] INVALID FOR* DIZZINESS AND GIDDINESS [R42] INVALID FOR* More... 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 Depression [F32.9] INVALID FOR* More... GERD (gastroesophageal reflux disease) [K21.9] INVALID FOR* More... Vitamin d deficiency [E55.9] Hyperlipidemia [E78.5] More... Hearing loss [H91.90] INVALID FOR* BPPV (benign paroxysmal positional vertigo) [H8*INVALID FOR* Tonsillar cancer [C09.9] INVALID FOR* CAD (coronary artery disease) [I25.10] More... Carotid artery stenosis, symptomatic [I65.29] More... Encounter for screening colonoscopy [Z12.11] INVALID FOR* Diverticula of colon [K57.30] INVALID FOR* Gastritis [K29.70] INVALID FOR* Irritation around percutaneous endoscopic gastr*INVALID FOR* Essential hypertension, benign [I10] More... Labile blood pressure [R09.89] INVALID FOR* Other pain disorders related to psychological f*INVALID FOR* Adjustment disorder with mixed anxiety and depr*INVALID FOR* Asthma, moderate persistent, poorly-controlled * Arthritis [M19.90] INVALID FOR* More... Orthostatic hypotension [I95.1] INVALID FOR* More... COPD with chronic bronchitis (HCC) [J44.9] INVALID FOR* More... Hypertension [I10] INVALID FOR* More... Environmental allergies [Z91.09] INVALID FOR* More... Complication of gastrostomy tube (HCC) [K94.20] INVALID FOR* Reflux esophagitis [K21.0] More... Essential hypertension [I10] INVALID FOR* Internal carotid artery stenosis, bilateral [I6*INVALID FOR* Malnutrition of mild degree (HCC) [E44.1] INVALID FOR* History of common carotid artery stent placemen*INVALID FOR* History of carotid stenosis [Z86.79] INVALID FOR* Letter Text [place] [place] [facility] [address], [place] [address] Shayan Culver [facility] [address] Clinic #: [id number] 12/13/2017 Dear Mr. Culver; It was so nice to speak with you today regarding your recent discharge from the hospital and recuperation. Please feel free to call me with any questions or concerns to relay to Dr. Grove. If I do not answer, there is a voice mail to leave a message and I'll get back to you as soon as I can. Our Care Coordination program at the [facility] is a way to assist patients after discharge from the hospital, particularly when there are medication changes and possible need for assistance with appointments, etc. We understand that navigating the health care system is confusing and daunting at times and want to assist patients in any way we can. We also have a Pharmacist who can help with your meds and a Field Handyman. There is no additional charge for our services and is a way to help patients and their physicians stay more closely connected. Please feel free to call me anytime with any requests or questions you may have. We hope your recovery is speedy and uneventful and know we are here as a resource for you and your family. Sincerely, Graciela Romero RN Ambulatory Mold Maintenance Technician of Internal Medicine [facility] Encounter Status:Closed by IAN DAI on 05/16/18 URIEL Observed: 12/12/2017 Status: COMPLETED Source: [place] 12:00 AM [facility] REPOSITORY Patient Outreach (INTMWS) SHAYAN CULVER ([id number]) 1950 M Date Time Provider Department 12/12/17 GRACIELA OCAMPO During your visit today, we recorded the following information about you: Graciela Capps RN 05/16/2018 6:59 AM Signed TRANSITION CARE MANAGEMENT (TCM) FOLLOW-UP NOTE Provider Action/FYI Pls file lab orders so they can be resulted in time for appt today, Patient identified by name and date of : YES Spoke to patient Summary: Pt had labs drawn this morning and coming in to see FLIGHT ATTENDANT at . Can you change BMP, CBC order to STAT so they can result it by the time he comes in? Concerns: Sociology Faculty Member plan for next outreach: Signature Graciela Capps RN December 12, 2017 Maude Higgins APRN.CLARA 05/16/2018 6:59 AM Signed Order signed. Allergies As of Date: 12/12/2017 Noted Allergy Reaction FLOXIN (OFLOXACIN) 10/09/2005 1 - Mental Status Change Comments: Severe depression. FLAGYL (METRONIDAZOLE HCL) 01/15/2005 1 - Mental Status Change Comments: Depression. CIPROFLOXACIN 02/16/2013 6 - Diarrhea 16 - Unknown Comments: ? diarrhea. MORPHINE 12/28/2016 1 - Mental Status Change Date Reviewed: 12/12/2017 Reviewed by: Wanda Salvador Slab Tripper - Fully Assessed Reason for Visit: Mold Maintenance Technician Hospital Follow Up [3610] Primary Visit Diagnosis:Dizziness and giddiness [R42] Other Visit Diagnosis:Hypotension due to blood loss [I95.89] Order(s):PORFIRIO CBC [SQWCBC] Order #: [id number] FUTURE BMP PLUS FHC [SQPICBMP] Order #: [id number] FUTURE Prescriptions as of 12/12/2017 Sig: X NAPROXEN 500 MG TABLET Take 1 tablet by mouth twice * ESOMEPRAZOLE MAGNESIUM 40 MG * Take 1 capsule by mouth daily* X DIAZEPAM 5 MG TABLET Take 4 mg by mouth every 6 ho* CLOPIDOGREL 75 MG TABLET Take 1 tablet by mouth once d* X RANITIDINE 150 MG TABLET Take 1 tablet by mouth twice * GUAIFENESIN ER 1,200 MG TABLE* Take 1 tablet by mouth once d* X ALBUTEROL SULFATE HFA 90 MCG/* Inhale 2 Puffs as instructed * X FLUTICASONE 50 MCG/ACTUATION * Use 1 New Century in each nostril d* MECLIZINE 12.5 MG TABLET Take 1 tablet by mouth twice * LEVOTHYROXINE 75 MCG TABLET Take 1 tablet by mouth once d* SERTRALINE 100 MG TABLET Take 0.5 tablets by mouth twi* X ATORVASTATIN 20 MG TABLET Take 1 tablet by mouth once d* ASPIRIN 325 MG TABLET Take 81 mg by mouth once genaro* POTASSIUM CHLORIDE ER 10 MEQ * Take 1 tablet by mouth daily * MULTIVITAMIN TABLET Take one(1) tablet daily. Problem List As Of Date 12/12/2017 Noted Resolved MALIGNANT NEOPL TONSIL [C09.9] INVALID FOR* DIZZINESS AND GIDDINESS [R42] INVALID FOR* More... 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 Depression [F32.9] INVALID FOR* More... GERD (gastroesophageal reflux disease) [K21.9] INVALID FOR* More... Vitamin d deficiency [E55.9] Hyperlipidemia [E78.5] More... Hearing loss [H91.90] INVALID FOR* BPPV (benign paroxysmal positional vertigo) [H8*INVALID FOR* Tonsillar cancer [C09.9] INVALID FOR* CAD (coronary artery disease) [I25.10] More... Carotid artery stenosis, symptomatic [I65.29] More... Encounter for screening colonoscopy [Z12.11] INVALID FOR* Diverticula of colon [K57.30] INVALID FOR* Gastritis [K29.70] INVALID FOR* Irritation around percutaneous endoscopic gastr*INVALID FOR* Essential hypertension, benign [I10] More... Labile blood pressure [R09.89] INVALID FOR* Other pain disorders related to psychological f*INVALID FOR* Adjustment disorder with mixed anxiety and depr*INVALID FOR* Asthma, moderate persistent, poorly-controlled * Arthritis [M19.90] INVALID FOR* More... Orthostatic hypotension [I95.1] INVALID FOR* More... COPD with chronic bronchitis (HCC) [J44.9] INVALID FOR* More... Hypertension [I10] INVALID FOR* More... Environmental allergies [Z91.09] INVALID FOR* More... Complication of gastrostomy tube (HCC) [K94.20] INVALID FOR* Reflux esophagitis [K21.0] More... Essential hypertension [I10] INVALID FOR* Internal carotid artery stenosis, bilateral [I6*INVALID FOR* Malnutrition of mild degree (HCC) [E44.1] INVALID FOR* History of common carotid artery stent placemen*INVALID FOR* History of carotid stenosis [Z86.79] INVALID FOR* Encounter Status:Closed by MALAIKA, PRODUSER on 05/16/18 PROGRESS Observed: 12/11/2017 Status: COMPLETED Source: [place] 1:21 PM [facility] [place] REPOSITORY HNO ID: [id number] Author: Wanda Salvador Cma Service: (none) Author Type: (none) Type: Progress Notes Filed: 05/16/2018 7:02 AM Note Text: Patient notified and verbalized understanding Wanda Salvador Slab Tripper PROGRESS Observed: 12/11/2017 Status: COMPLETED Source: [place] 11:25 AM [facility] [place] REPOSITORY HNO ID: [id number] Author: Laura Grove Service: (none) Author Type: Physician Type: Progress Notes Filed: 05/16/2018 7:02 AM Note Text: noted PROGRESS Observed: 12/11/2017 Status: COMPLETED Source: [place] 9:50 AM [facility] [place] REPOSITORY HNO ID: [id number] Author: Maude Higgins Service: (none) Author Type: Nurse Practitioner Type: Progress Notes Filed: 05/16/2018 7:02 AM Note Text: Orders signed. Agree to ER if symptomatic at all. Increase fluids. PROGRESS Observed: 12/11/2017 Status: COMPLETED Source: [place] 8:26 AM [facility] [place] REPOSITORY HNO ID: [id number] Author: Graciela Romero Service: (none) Author Type: Registered Nurse Type: Progress Notes Filed: 05/16/2018 7:02 AM Note Text: 107/48; 89/69. HR 74 This AM. He is feeling better today, still tired. Needs F/U labs done and appt. Will come in tomorrow for labs. Concerned that he may have had additional slow bleeding. PROGRESS Observed: 12/10/2017 Status: COMPLETED Source: [place] 5:39 PM [facility] [place] REPOSITORY HNO ID: [id number] Author: Graciela Romero Service: (none) Author Type: Registered Nurse Type: Progress Notes Filed: 05/16/2018 7:02 AM Note Text: TRANSITION CARE MANAGEMENT (TCM) INITIAL CONTACT Provider Action/FYI: Pt had post op bleeding. Hgb dropped from 14.8>11.0. His SBP running 70-107. But declines ER. Need appt this week. Initial contact with patient post discharge, spoke to Shelby. Patient identified by name and . SUMMARY: -Pt discharged from [facility] on 12/07/17. -Follow up appointment on 12/12/17.. -Medication review done with . -Admitted for: R ICA CONCERNS: states Pt had a bleeder post op after groin cath removed and they had to kneel on him to stop it and he lost a lot of blood Due to additional anesthesia, per , his BP has been low. She states this morning it was 90. States when he was sitting it was in 70's so he laid down. continues to state she is watching him carefully and keeping him safe.' He always gets low bp with anesthesia until it wears off.' I am very concerned and discussed need for ER and she states he is alert and no need at this time. I asked her to take BP with him laying down. It is 96/. I suggested ER again and she again says he gets this way. We discussed if he is symptomatic, etc to call 911 IMMEDIATELY. She understands. Encouraged much increased fluids tonight and would likely need to see him tomorrow. I called back after 15 mins, and spoke wth pt. He is up and talked and laughed with me, refused ER currently but agrees to go if ANY more symptomatic. NEW MEDICATIONS: None MEDS HELD/DISCONTINUED: None BRIEF HOSPITAL COURSE: PROCEDURE: Carotid arteriogram with placement of R ICA stent, Left groin access HOSPITAL COURSE: Labile blood pressure post procedure with stable neurologic exam. Patient discharged the following day. FINAL DIAGNOSIS: Right ICA stenosis s/p stenting Copied from [employer] URIEL Observed: 12/10/2017 Status: COMPLETED Source: [place] 12:00 AM [facility] REPOSITORY Patient Outreach (FAMPWS) SHAYAN CULVER ([id number]) 1950 M Date Time Provider Department 12/10/17 QUYEN IMHOF, GRACIELA FAMPWS During your visit today, we recorded the following information about you: Graciela Capps RN 05/16/2018 7:02 AM Signed TRANSITION CARE MANAGEMENT (TCM) INITIAL CONTACT Provider Action/FYI: Pt had post op bleeding. Hgb dropped from 14.8>11.0. His SBP running 70-107. But declines ER. Need appt this week. Initial contact with patient post discharge, spoke to Shelby. Patient identified by name and . SUMMARY: -Pt discharged from [facility] on 12/07/17. -Follow up appointment on 12/12/17.. -Medication review done with . -Admitted for: R ICA CONCERNS: states Pt had a bleeder post op after groin cath removed and they had to kneel on him to stop it and he lost a lot of blood Due to additional anesthesia, per , his BP has been low. She states this morning it was 90. States when he was sitting it was in 70's so he laid down. continues to state she is watching him carefully and keeping him safe.' He always gets low bp with anesthesia until it wears off.' I am very concerned and discussed need for ER and she states he is alert and no need at this time. I asked her to take BP with him laying down. It is 96/. I suggested ER again and she again says he gets this way. We discussed if he is symptomatic, etc to call 911 IMMEDIATELY. She understands. Encouraged much increased fluids tonight and would likely need to see him tomorrow. I called back after 15 mins, and spoke wth pt. He is up and talked and laughed with me, refused ER currently but agrees to go if ANY more symptomatic. NEW MEDICATIONS: None MEDS HELD/DISCONTINUED: None BRIEF HOSPITAL COURSE: PROCEDURE: Carotid arteriogram with placement of R ICA stent, Left groin access HOSPITAL COURSE: Labile blood pressure post procedure with stable neurologic exam. Patient discharged the following day. FINAL DIAGNOSIS: Right ICA stenosis s/p stenting Copied from [employer] Graciela Capps RN 05/16/2018 7:02 AM Signed 107/48; 89/69. HR 74 This AM. He is feeling better today, still tired. Needs F/U labs done and appt. Will come in tomorrow for labs. Concerned that he may have had additional slow bleeding. Maude Higgins APRN.[id number] M60 ARMOR CREWMAN 05/16/2018 7:02 AM Signed Orders signed. Agree to ER if symptomatic at all. Increase fluids. LAURA GROVE MD 05/16/2018 7:02 AM Signed noted Wanda Salvador Cma 05/16/2018 7:02 AM Signed Patient notified and verbalized understanding Wanda Workvincent Slab Tripper Allergies As of Date: 12/10/2017 Noted Allergy Reaction FLOXIN (OFLOXACIN) 10/09/2005 1 - Mental Status Change Comments: Severe depression. FLAGYL (METRONIDAZOLE HCL) 01/15/2005 1 - Mental Status Change Comments: Depression. CIPROFLOXACIN 02/16/2013 6 - Diarrhea 16 - Unknown Comments: ? diarrhea. MORPHINE 12/28/2016 1 - Mental Status Change Date Reviewed: 12/06/2017 Reviewed by: Heavenly (Rn) CLINTON De La Cruz - Fully Assessed Reason for Visit: Transition Of Care [4074] Primary Visit Diagnosis:Blood loss anemia [D50.0] Other Visit Diagnosis:Essential hypertension [I10] Order(s):CBC [SQCBC] Order #: [id number] FUTURE BASIC METABOLIC PNL [SQBMP] Order #: [id number] FUTURE Prescriptions as of 12/10/2017 Sig: X NAPROXEN 500 MG TABLET Take 1 tablet by mouth twice * ESOMEPRAZOLE MAGNESIUM 40 MG * Take 1 capsule by mouth daily* CLOPIDOGREL 75 MG TABLET Take 1 tablet by mouth once d* X RANITIDINE 150 MG TABLET Take 1 tablet by mouth twice * X ALBUTEROL SULFATE HFA 90 MCG/* Inhale 2 Puffs as instructed * X FLUTICASONE 50 MCG/ACTUATION * Use 1 New Century in each nostril d* MECLIZINE 12.5 MG TABLET Take 1 tablet by mouth twice * LEVOTHYROXINE 75 MCG TABLET Take 1 tablet by mouth once d* SERTRALINE 100 MG TABLET Take 0.5 tablets by mouth twi* X ATORVASTATIN 20 MG TABLET Take 1 tablet by mouth once d* ASPIRIN 325 MG TABLET Take 81 mg by mouth once genaro* POTASSIUM CHLORIDE ER 10 MEQ * Take 1 tablet by mouth daily * X DIAZEPAM 5 MG TABLET Take 4 mg by mouth every 6 ho* GUAIFENESIN ER 1,200 MG TABLE* Take 1 tablet by mouth once d* MULTIVITAMIN TABLET Take one(1) tablet daily. Problem List As Of Date 12/10/2017 Noted Resolved MALIGNANT NEOPL TONSIL [C09.9] INVALID FOR* DIZZINESS AND GIDDINESS [R42] INVALID FOR* More... 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 Depression [F32.9] INVALID FOR* More... GERD (gastroesophageal reflux disease) [K21.9] INVALID FOR* More... Vitamin d deficiency [E55.9] Hyperlipidemia [E78.5] More... Hearing loss [H91.90] INVALID FOR* BPPV (benign paroxysmal positional vertigo) [H8*INVALID FOR* Tonsillar cancer [C09.9] INVALID FOR* CAD (coronary artery disease) [I25.10] More... Carotid artery stenosis, symptomatic [I65.29] More... Encounter for screening colonoscopy [Z12.11] INVALID FOR* Diverticula of colon [K57.30] INVALID FOR* Gastritis [K29.70] INVALID FOR* Irritation around percutaneous endoscopic gastr*INVALID FOR* Essential hypertension, benign [I10] More... Labile blood pressure [R09.89] INVALID FOR* Other pain disorders related to psychological f*INVALID FOR* Adjustment disorder with mixed anxiety and depr*INVALID FOR* Asthma, moderate persistent, poorly-controlled * Arthritis [M19.90] INVALID FOR* More... Orthostatic hypotension [I95.1] INVALID FOR* More... COPD with chronic bronchitis (HCC) [J44.9] INVALID FOR* More... Hypertension [I10] INVALID FOR* More... Environmental allergies [Z91.09] INVALID FOR* More... Complication of gastrostomy tube (HCC) [K94.20] INVALID FOR* Reflux esophagitis [K21.0] More... Essential hypertension [I10] INVALID FOR* Internal carotid artery stenosis, bilateral [I6*INVALID FOR* Malnutrition of mild degree (HCC) [E44.1] INVALID FOR* History of common carotid artery stent placemen*INVALID FOR* History of carotid stenosis [Z86.79] INVALID FOR* Encounter Status:Closed by EPIC, PRODUSER on 05/16/18 CNDS Observed: 12/07/2017 Status: COMPLETED Source: [place] 1:00 PM CLINIC [facility] REPOSITORY O ID: [id number] Author: Sang Bland (Res) Service: Vascular Surgery Author Type: Resident Type: Discharge Summaries Filed: 12/07/2017 1:02 PM Note Text: DISCHARGE NOTE (Patient Admitted Less than 48 Hours) SERVICE DATE: 12/07/2017 SERVICE TIME: 1300 ADMISSION DATE: 12/06/2017 DISCHARGE DISPOSITION: Home/Self Care DIET: Regular ACTIVITY AFTER DISCHARGE: Resume pre-hospital activity FOLLOW UP CARE REQUIRED: follow up with Dr. Nieto in 2-3 weeks DISCHARGE MEDICATIONS (ONLY ACTIVATE WHEN READY TO DISCHARGE): Current Discharge Medication List CONTINUE these medications which have NOT CHANGED diazePAM (VALIUM) 4 mg Take 4 mg by mouth every 6 hours as needed (sleep). clopidogrel (PLAVIX) 75 mg Take 75 mg by mouth once daily. Qty: 90 tablet Refills: 3 Associated Diagnoses:Non-ST elevation GA (NSTEMI) ([facility]) ranitidine (ZANTAC) 150 mg Take 150 mg by mouth twice daily. Qty: 60 tablet Refills: 11 Associated Diagnoses:Hypertension, unspecified type meclizine (ANTIVERT) 12.5 mg Take 12.5 mg by mouth twice daily. Qty: 180 tablet Refills: 3 Comments: Please consider 90 day supplies to promote better adherence levothyroxine (SYNTHROID) 75 mcg Take 75 mcg by mouth once daily. Qty: 90 tablet Refills: 3 sertraline (ZOLOFT) 50 mg Take 50 mg by mouth twice daily. Qty: 30 tablet Refills: 11 atorvastatin (LIPITOR) 20 mg Take 20 mg by mouth once daily. Qty: 90 tablet Refills: 0 aspirin 81 mg Take 81 mg by mouth once daily. Qty: 10 tablet Refills: 0 Associated Diagnoses:SOB (shortness of breath) naproxen (NAPROSYN) 500 mg Take 500 mg by mouth twice daily as needed (for pain/inflammation). Take with food. Qty: 30 tablet Refills: 0 esomeprazole (NexIUM) 40 mg Take 40 mg by mouth daily before breakfast. 1/2 hr before meal. Qty: 90 capsule Refills: 3 albuterol HFA (PROVENTIL HFA, VENTOLIN HFA) 2 Puffs Inhale 2 Puffs as instructed every 4 hours as needed for Wheezing/Shortness of Breath. Qty: 1 Inhaler Refills: 5 Associated Diagnoses:Asthma, late onset, severe persistent, uncomplicated fluticasone (FLONASE) 1 New Century Use 1 New Century in each nostril daily at bedtime. Qty: 1 Bottle Refills: 3 Associated Diagnoses:Chronic rhinitis guaiFENesin 1,200 mg Take 1,200 mg by mouth once daily. Qty: 30 tablet Refills: 3 Associated Diagnoses:Asthma, late onset, severe persistent, uncomplicated; Chronic rhinitis potassium chloride (K-TAB) 10 mEq Take 10 mEq by mouth daily with breakfast. Refills: 0 Associated Diagnoses:Non-ST elevation GA (NSTEMI) ([facility]) MULTIVITAMIN TAB Take one(1) tablet daily. Refills: 0 PROCEDURE: Carotid arteriogram with placement of R ICA stent, Left groin access HOSPITAL COURSE: Labile blood pressure post procedure with stable neurologic exam. Patient discharged the following day. FINAL DIAGNOSIS: Right ICA stenosis s/p stenting SIGNATURE: Sang Bland MD PATIENT NAME: Shayan Culver DATE: December 07, 2017 TIME: 1:00 PM PAGER: [phone] PROGRESS Observed: 12/07/2017 Status: COMPLETED Source: [place] 12:57 PM [facility] REPOSITORY O ID: [id number] Author: Sang Bland (Res) Service: Vascular Surgery Author Type: Resident Type: Progress Notes Filed: 12/07/2017 12:59 PM Note Text: Attestation signed by Karla Bucio at 12/08/2017 8:31 AM [facility] STAFF PHYSICIAN NOTE OF PERSONAL INVOLVEMENT IN CARE IMPRESSION: Carotid Stenosis PLAN: s/p carotid stent placement. Doing well, off all drips for labile BP. Will ween O2 and plan on DC today I have reviewed the documentation above obtained and documented by the Resident and have reviewed comorbidities and relevant tests. I have personally performed a face to face assessment of the patient and I have discussed the case and management of the patient's care. Counseling (Inpatient): I personally spent 20 total minutes involved in the care of this patient. Greater than 50% of the time was spent counseling and/or coordinating care for the patient, the nature of which is noted above. STAFF PHYSICIAN:: Karla Bucio MD DATE of SERVICE: 12/08/2017 TIME of SERVICE: 8:31 AM VASCULAR SURGERY PROGRESS NOTE SERVICE DATE: 12/07/2017 Subjective SUBJECTIVE: No overnight events. No complaints. Off all BP meds Denies N/V/CP/SOB Diet: DIET HEART HEALTHY Objective OBJECTIVE: Vitals: Temp (24hrs), Av ?C (96.8 ?F), Min:36 ?C (96.8 ?F), Max:36 ?C (96.8 ?F) BP 91/66 Pulse 89 Temp 36 ?C (96.8 ?F) (Temporal Artery) Resp 19 Ht 185.9 cm (6' 1.2) Wt 90.7 kg (200 lb) SpO2 93% BMI 26.24 kg/m? O2 Therapy: Room Air IANDO: Date 12/06/17699 - 12/07/1765812/07/17699 - 12/08/17 0659 Shift 0115-0179 6494-0795 3616-2596 24 Hour Total 0696-0369 9497-0261 4301-9609 24 Hour Total I N T A K E PO 240 240 PO 240 240 IV 420 918.1 1338.1 LR 267 728 0602 Phenylephrine Volume 20 22.1 42.1 Shift Total 660 918.1 1578.1 O U T P U T Urine 615 300 915 300 300 Void (ml) 300 300 Tube Output ([REMOVED] Indwelling Urinary Catheter 12/06/17 1800 Acuna 16 Fr 12/07/17 0552) 615 300 915 # of BMs Number of BMs 1 x 1 x Shift Total 615 300 915 300 300 Weight (kg) 90.7 90.7 90.7 90.7 90.7 90.7 90.7 90.7 MEDICATIONS Current Facility-Administered Medications: ondansetron 4 mg tab(s) (ZOFRAN) 4 mg ORAL q 6 H PRN ondansetron (PF) 4 mg injection (ZOFRAN) 4 mg INTRAVENOUS q 6 H PRN aspirin 81 mg tab(s) 81 mg ORAL DAILY meclizine 12.5 mg tab(s) (ANTIVERT) 12.5 mg ORAL BID atorvastatin 20 mg tab(s) (LIPITOR) 20 mg ORAL AT BEDTIME albuterol HFA 90 mcg/actuation 2 Puff (PROVENTIL HFA, VENTOLIN HFA) 2 Puff INHALATION q 4 H PRN guaiFENesin 1,200 mg ER tab(s) (MUCINEX) 1,200 mg ORAL DAILY famotidine 20 mg tab(s) (PEPCID) 20 mg ORAL BID clopidogrel 75 mg tab(s) (PLAVIX) 75 mg ORAL DAILY potassium chloride 10 mEq tablet (K-TAB) 10 mEq ORAL DAILY WITH BREAKFAST pantoprazole DR 40 mg tab(s) (PROTONIX) 40 mg ORAL BEFORE BREAKFAST DAILY sertraline 50 mg tab(s) (ZOLOFT) 50 mg ORAL BID levothyroxine 75 mcg tab(s) (SYNTHROID) 75 mcg ORAL DAILY (6 AM) enoxaparin 40 mg injection (LOVENOX) 40 mg SUBCUTANEOUS DAILY acetaminophen 975 mg tab(s) (TYLENOL) 975 mg ORAL q 6 H oxyCODONE IR 5 mg tab(s) (ROXICODONE) 5 mg ORAL q 6 H PRN fentaNYL 50 mcg/mL 25 mcg injection (SUBLIMAZE) 25 mcg INTRAVENOUS q 2 H PRN nitroglycerin 100 mg in D5W 250 mL 5-200 mcg/min INTRAVENOUS CONTINUOUS PHENYLephrine 80 mg in D5W 250 mL (NEOSYNEPHRINE) 25-300 mcg/min INTRAVENOUS CONTINUOUS Labs: Recent Labs 12/07/17 0430 NA 141 K 4.1 CHLOR 111* CO2 22 BUN 14 CREAT 1.05 GLUC 71 ANION 12 CA 8.1* WBC 8.34 HB 11.0* HCT 32.5* PLT 154 Exam: GENERAL: No distress, Alert NEURO: AANDOx3, CN II-XII grossly intact LUNGS: Unlabored breathing O2 Therapy: Room Air CARDIAC: Regular rate and rhythm as above ABDOMEN: Soft, non-tender, non-distended EXTREMITIES: EDWARDS, No deformities, No edema. Groin soft, mild ecchymosis SKIN: Skin color, texture, turgor normal, No rashes or lesions ASSESSMENT AND PLAN: Active Hospital Problems Diagnosis Date Noted - Carotid artery stenosis, symptomatic Overview Note: US 02/25/13: L ICA 50%, ECA 50-70%; R<50% - History of common carotid artery stent placement 12/06/2017 - History of carotid stenosis 12/06/2017 67 year old male s/p R carotid artery stenting No acute events Resume home medications Discharge home Assessment and plan discussed with attending: Fortunato SIGNATURE: Sang Bland MD PATIENT NAME: Shayan Culver DATE: December 07, 2017 TIME: 12:57 PM Pager: [phone] HEMOGRAM/DIFF Collected: 12/07/2017 Status: F Source: [facility] 4:30 AM HEALTH SYSTEM REPOSITORY TYPE CODE TESTS RESULT OUT OF REFERENCE UNITS RANGE LAB WBC(LOINC) 4.23-9.07 thou/cmm WBC 8.34 LAB RBC(LOINC) 4.63-6.08 mil/cmm Low RBC 3.33 LAB HGB(LOINC) 13.7-17.5 g/dL Low Hgb 11.0 LAB HCT(LOINC) 40.1-51.0 % Low Hct 32.5 LAB MCV(LOINC) 83.2-95.6 fl MCV High 97.6 LAB MCH(LOINC) 25.7-32.2 pg MCH High 33.0 LAB MCHC(LOINC 32.3-36.5 % ) MCHC 33.8 LAB RDW(LOINC) 11.6-14.4 % RDW 14.2 LAB RDWSD(LOIN 36.1-45.8 fl C) RDW SD High 51.4 LAB PLT(LOINC) 141-365 thou/cmm Platelet 154 LAB MPV(LOINC) 8.7-12.0 fl MPV 10.0 LAB SEG(LOINC) % Seg Neutrophil 74.2 LAB IGRE(LOINC % ) Immature Grans 0.50 LAB LYMPH(LOIN % C) Lymphocyte 10.3 LAB MNO(LOINC) % Monocyte 10.1 LAB EOSIN(LOIN % C) Eosinophil 4.3 LAB BASO(LOINC % ) Basophil 0.6 LAB SEGN(LOINC 1.78-5.38 thou/cmm ) Abs. High Neut 6.19 LAB IGAB(LOINC 0.00-0.05 thou/cmm ) Abs Immature Grans 0.04 LAB LYMN(LOINC 0.84-2.85 thou/cmm ) Abs. Lymph 0.86 LAB MONON(LOIN 0.30-0.82 thou/cmm C) Abs. High [place] 0.84 LAB EOSN(LOINC 0.04-0.54 thou/cmm ) Abs. Eosin 0.36 LAB BASON(LOIN 0.01-0.08 thou/cmm C) Abs. Baso 0.05 Performed By: #### CBCD1 #### [place] [address] BASIC PANEL Collected: 12/07/2017 Status: F Source: [facility] 4:30 AM HEALTH SYSTEM REPOSITORY TYPE CODE TESTS RESULT OUT OF REFERENCE UNITS RANGE LAB NA(LOINC) 136-145 mEq/L Sodium Blood 141 LAB K(LOINC) 3.5-5.1 mEq/L Potassium Blood 4.1 LAB CL(LOINC) 98-107 mEq/L Chloride High Blood 111 LAB CO2(LOINC) 21-32 mEq/L CO2 Blood 22 LAB GLU(LOINC) 70-99 mg/dL Glucose Blood 71 LAB BUN(LOINC) 7-18 mg/dL BUN Blood 14 LAB CREA(LOINC 0.67-1.17 mg/dL ) Creatinine Blood 1.05 LAB CA(LOINC) 8.5-10.1 mg/dL Low Calcium Blood 8.1 LAB ANGAP(LOIN 8-16 C) Anion Gap 12 Performed By: #### P8 #### [place] [address] MDRD GFR Collected: 12/07/2017 Status: F Source: [facility] 4:30 AM HEALTH SYSTEM REPOSITORY TYPE CODE TESTS RESULT OUT OF RANGE REFERENCE UNITS LAB GFRFN(LOINC >60mL/min/1.73m ) 2 eGFR >60 Result Comment: If the patient is , multiply the result by 1.210. Performed By: #### GFR #### [facility] [address] [place], [place] [address] CAROTID CEREBRAL Observed: 12/06/2017 Status: F Source: [facility] [id number] 12:43 PM HEALTH SYSTEM REPOSITORY Performed at [facility] APPROVED BY: LUTHER NIETO MD EXAM TITLE: RIGHT CEREBRAL ARTERIOGRAM. ANGIOPLASTY AND STENTING OF SEVERE RIGHT INTERNAL CAROTID STENOSIS UTILIZING 8MM BY 29 MM WALLSTENT STATUS POST RADIATION.*CLOSE CLOSURE OF RIGHT FEMORAL ACCESS Skin exit site pressure for 20 minutes. There were no complications noted. Note should be maintained at the patient was hemodynamically very unstable on admission secondary to his hypertension and the refore the entire procedure was performed with arterial line monitoring in continuous hemodynamic agents to help control the patient's blood pressure both hypertension and hypotension. The patient was awake at the end of the procedure had no evidence of any deficits and was returned to the cardiovascular intensive care unit in stable condition. DATE:12/06/2017 08:34 CLINICAL INDICATION/HISTORY: Patient has a history of severe radiation to the neck and severe bilateral carotid stenosis previously treated with left internal carotid artery stenting now here for right internal carotid artery stenting. TECHNIQUE: All elements of maximal barrier technique including cap and mask, sterile gown, sterile gloves, a large sterile drape, hand hygiene and appropriate prep agent for cutaneous antisepsis were ut ilized and maintained during the procedure. Micropuncture access was obtained and a micropuncture sheath was passed in the right femoral region. This was done under ultrasound guidance. Images are provided of the ultrasound guided access. The [place] wire was passed and the distal aorta 6 [place] sheath was passed. Once this was placed we went ahead and proceeded to pass a wire up and into the thoracic aortic arch. Utilizing previous thoraci c arch aortography we were able to identify the origin of the takeoff of the innominate artery on the right. We went ahead and proceeded to cannulate this. Once we had position there we passed a long 6 [place] shuttle sheath up and into the proximal common carotid artery. With the shuttle sheath in place we went ahead and proceeded to access the internal carotid artery. This was done with a filter wire. The filter wire was passed up and into the interest cavernous portion of the carotid artery. Once this was in good position we went ahead and proceeded to pass up a 3 mm x 20 mm balloon. Predil ation was performed with a 3 mm x 20 mm direct ablation with the distal filter wire in place. Once this was accomplished we went ahead and proceeded to perform passage of the stent up and over the wire and into the level of the carotid bifurcation. Once the stent was appropriately seated we went ahead and opened the stent the stent was opened and post stent dilation was performed utilizing 4 mm x 20 mm calculi balloon. Once this was accomplished we went ahead and performed post stent dilation arteriography. The post stent dilation arteriography revealed a widely patent stent without evidence of any intracerebral embolization. Images are provided of the balloon angioplasties as well as the placement of the protection device. In addition once these are performed images are provided revealing t he post stent placement images. Post stent imaging reveals minimal residual stenosis at the area of severe stenosis. Now the protection device was captured and retrieved. Once this was done we remove d the sheath and at the site of the sheath insertion and a Star close device was placed. Once a Star close device was placed we went ahead and proceeded to held FINDINGS: As above IMPRESSION: Successful stenting of significant postradiation stenosis of the right internal carotid artery utilizing 8mm by 29 mm Wallstent with post stent dilation utilizing 4 mm x 20 mm balloon CAROTID STENT [facility] Observed: 12/06/2017 Status: F Source: [facility] WITH EMB PROT 12:43 PM HEALTH SYSTEM [address] REPOSITORY Performed at [facility] APPROVED BY: LUTHER NIETO MD EXAM TITLE: RIGHT CEREBRAL ARTERIOGRAM. ANGIOPLASTY AND STENTING OF SEVERE RIGHT INTERNAL CAROTID STENOSIS UTILIZING 8MM BY 29 MM WALLSTENT STATUS POST RADIATION.*CLOSE CLOSURE OF RIGHT FEMORAL ACCESS Skin exit site pressure for 20 minutes. There were no complications noted. Note should be maintained at the patient was hemodynamically very unstable on admission secondary to his hypertension and the refore the entire procedure was performed with arterial line monitoring in continuous hemodynamic agents to help control the patient's blood pressure both hypertension and hypotension. The patient was awake at the end of the procedure had no evidence of any deficits and was returned to the cardiovascular intensive care unit in stable condition. DATE:12/06/2017 08:34 CLINICAL INDICATION/HISTORY: Patient has a history of severe radiation to the neck and severe bilateral carotid stenosis previously treated with left internal carotid artery stenting now here for right internal carotid artery stenting. TECHNIQUE: All elements of maximal barrier technique including cap and mask, sterile gown, sterile gloves, a large sterile drape, hand hygiene and appropriate prep agent for cutaneous antisepsis were ut ilized and maintained during the procedure. Micropuncture access was obtained and a micropuncture sheath was passed in the right femoral region. This was done under ultrasound guidance. Images are provided of the ultrasound guided access. The [place] wire was passed and the distal aorta 6 [place] sheath was passed. Once this was placed we went ahead and proceeded to pass a wire up and into the thoracic aortic arch. Utilizing previous thoraci c arch aortography we were able to identify the origin of the takeoff of the innominate artery on the right. We went ahead and proceeded to cannulate this. Once we had position there we passed a long 6 [place] shuttle sheath up and into the proximal common carotid artery. With the shuttle sheath in place we went ahead and proceeded to access the internal carotid artery. This was done with a filter wire. The filter wire was passed up and into the interest cavernous portion of the carotid artery. Once this was in good position we went ahead and proceeded to pass up a 3 mm x 20 mm balloon. Predil ation was performed with a 3 mm x 20 mm direct ablation with the distal filter wire in place. Once this was accomplished we went ahead and proceeded to perform passage of the stent up and over the wire and into the level of the carotid bifurcation. Once the stent was appropriately seated we went ahead and opened the stent the stent was opened and post stent dilation was performed utilizing 4 mm x 20 mm calculi balloon. Once this was accomplished we went ahead and performed post stent dilation arteriography. The post stent dilation arteriography revealed a widely patent stent without evidence of any intracerebral embolization. Images are provided of the balloon angioplasties as well as the placement of the protection device. In addition once these are performed images are provided revealing t he post stent placement images. Post stent imaging reveals minimal residual stenosis at the area of severe stenosis. Now the protection device was captured and retrieved. Once this was done we remove d the sheath and at the site of the sheath insertion and a Star close device was placed. Once a Star close device was placed we went ahead and proceeded to held FINDINGS: As above IMPRESSION: Successful stenting of significant postradiation stenosis of the right internal carotid artery utilizing 8mm by 29 mm Wallstent with post stent dilation utilizing 4 mm x 20 mm balloon BRIEF OP NOT Observed: 12/06/2017 Status: COMPLETED Source: [place] 12:04 PM [facility] REPOSITORY HNO ID: [id number] Author: Luther Nieto Service: Vascular Surgery Author Type: Physician Type: Brief Op Note Filed: 12/06/2017 12:07 PM Note Text: VASCULAR SURGERY POST PROCEDURE NOTE DATE: 12/06/17 NAME: Shayan Culver LOG ID: [id number] Pre-Procedure Diagnosis: 90% stenosis R ICA s/p radiation; symptomatic Post Procedure Diagnosis: Same. Career Coordinator: Dr. Luther Nieto (Primary) Procedure: Caqrotid arteriogram with placement R ICA stent Anesthesia: Procedural Sedation Findings: Good reslt with widely patent stent ; Pt neurologically intact post stent Estimated Blood Loss: Minimal (Less Than 25 mL). Specimen: None. Complications: None. Full report with procedural details to follow and will become available under Imaging Reports. Please contact for any questions or concerns. Luther Nieto MD Vascular Surgery Beeper [phone] ACT Collected: 12/06/2017 Status: F Source: [facility] 11:52 AM HEALTH SYSTEM REPOSITORY TYPE CODE TESTS RESULT OUT OF RANGE REFERENCE UNITS LAB ACT(LOINC) 89-169 sec ACT 159 Performed By: #### ACT #### [place] [address] ACT Collected: 12/06/2017 Status: F Source: [facility] 11:32 AM HEALTH SYSTEM REPOSITORY TYPE CODE TESTS RESULT OUT OF RANGE REFERENCE UNITS LAB ACT(LOINC) 89-169 sec High ACT 377 Performed By: #### ACT #### [place] [address] ACT Collected: 12/06/2017 Status: F Source: [facility] 10:55 AM HEALTH SYSTEM REPOSITORY TYPE CODE TESTS RESULT OUT OF RANGE REFERENCE UNITS LAB ACT(LOINC) 89-169 sec High ACT >400 Performed By: #### ACT #### [place] [address] ACT Collected: 12/06/2017 Status: F Source: [facility] 10:38 AM HEALTH SYSTEM REPOSITORY TYPE CODE TESTS RESULT OUT OF RANGE REFERENCE UNITS LAB ACT(LOINC) 89-169 sec High ACT 277 Performed By: #### ACT #### [facility] [address], [place] [address] ACT Collected: 12/06/2017 Status: F Source: [facility] 10:30 AM HEALTH SYSTEM REPOSITORY TYPE CODE TESTS RESULT OUT OF RANGE REFERENCE UNITS LAB ACT(LOINC) 89-169 sec ACT 130 Performed By: #### ACT #### [facility] [address] [place], [place] [address] PROGRESS Observed: 12/04/2017 Status: COMPLETED Source: [place] 1:40 PM [facility] REPOSITORY HNO ID: [id number] Author: Luther Nieto Service: (none) Author Type: Physician Type: Progress Notes Filed: 12/04/2017 1:43 PM Note Text: This patient is seen back in follow-up of his carotid stent that was performed on the left. This looked quite good upon completion and he has had no sequelae from this. He has no swelling or pain in his groin at this time. He is to undergo stenting of his right internal carotid artery in about a week from now. Overall the patient still has high anxiety about this and comes into the hospital hypertensive and we had to place an arterial line and control his blood pressure with nitroglycerin on the last visit. Immediately after performing the procedure he became normotensive and almost hypotensive and therefore I understand the problems that his primary physicians have in keeping him on any type of blood pressure medication I'm sure however he is having the spikes in blood pressure the problem is that when he gets hypotensive he has had episodes of near syncope and syncope which is not good either. At this point I'm going to go ahead and just plan on trying to give him a little more anxiolytic medication before the procedure and then proceed with seeing if we can do it without doing an arterial line this time. He have him set up for next Saturday for the procedure he is going to follow-up with us at that time CNOV Observed: 11/29/2017 Status: COMPLETED Source: [place] 11:45 AM [facility] REPOSITORY Office Visit (AGMIL) SHAYAN CULVER ([id number]) 1950 M Date Time Provider Department 11/29/17 11:45 AM LUTHER NIETO During your visit today, we recorded the following information about you: Pulse Respiration Blood pressure Weight 74/minute 18/minute 122/74 90.7 kg Height 1.829 m Luther Nieto MD 12/04/2017 1:43 PM Signed This patient is seen back in follow-up of his carotid stent that was performed on the left. This looked quite good upon completion and he has had no sequelae from this. He has no swelling or pain in his groin at this time. He is to undergo stenting of his right internal carotid artery in about a week from now. Overall the patient still has high anxiety about this and comes into the hospital hypertensive and we had to place an arterial line and control his blood pressure with nitroglycerin on the last visit. Immediately after performing the procedure he became normotensive and almost hypotensive and therefore I understand the problems that his primary physicians have in keeping him on any type of blood pressure medication I'm sure however he is having the spikes in blood pressure the problem is that when he gets hypotensive he has had episodes of near syncope and syncope which is not good either. At this point I'm going to go ahead and just plan on trying to give him a little more anxiolytic medication before the procedure and then proceed with seeing if we can do it without doing an arterial line this time. He have him set up for next Saturday for the procedure he is going to follow-up with us at that time Referring Provider: LAURA GROVE [[id number]] Allergies As of Date: 11/29/2017 Noted Allergy Reaction FLOXIN (OFLOXACIN) 10/09/2005 1 - Mental Status Change Comments: Severe depression. FLAGYL (METRONIDAZOLE HCL) 01/15/2005 1 - Mental Status Change Comments: Depression. CIPROFLOXACIN 02/16/2013 6 - Diarrhea 16 - Unknown Comments: ? diarrhea. MORPHINE 12/28/2016 1 - Mental Status Change Date Reviewed: 11/29/2017 Reviewed by: Salma Gould LPN - Fully Assessed Reason for Visit: Stenosis [1326] Cmt: Shayan is here for post op 11/08/17 Lt carotid arteriogram with stenting. Primary Visit Diagnosis:Internal carotid artery stenosis, right [I65.21] Other Visit Diagnoses:Pre-operative anxiety [F41.1] Anticipatory anxiety [F41.1] Prescriptions as of 11/29/2017 Sig: NAPROXEN 500 MG TABLET Take 1 tablet by mouth twice * ESOMEPRAZOLE MAGNESIUM 40 MG * Take 1 capsule by mouth daily* CLOPIDOGREL 75 MG TABLET Take 1 tablet by mouth once d* RANITIDINE 150 MG TABLET Take 1 tablet by mouth twice * ALBUTEROL SULFATE HFA 90 MCG/* Inhale 2 Puffs as instructed * FLUTICASONE 50 MCG/ACTUATION * Use 1 [place] in each nostril d* GUAIFENESIN ER 1,200 MG TABLE* Take 1 tablet by mouth once d* MECLIZINE 12.5 MG TABLET Take 1 tablet by mouth twice * LEVOTHYROXINE 75 MCG TABLET Take 1 tablet by mouth once d* SERTRALINE 100 MG TABLET Take 0.5 tablets by mouth twi* ATORVASTATIN 20 MG TABLET Take 1 tablet by mouth once d* ASPIRIN 325 MG TABLET Take 81 mg by mouth once genaro* POTASSIUM CHLORIDE ER 10 MEQ * Take 1 tablet by mouth daily * MULTIVITAMIN TABLET Take one(1) tablet daily. DIAZEPAM 5 MG TABLET Take 4 mg by mouth every 6 ho* Medication notes this encounter DIAZEPAM 5 MG TABLET >> Salma Gould LPN 11/29/2017 10:49 AM >> SALMA GOULD LPN SatNov 29, 2017 10:49 AM completed Problem List As Of Date 11/29/2017 Noted Resolved MALIGNANT NEOPL TONSIL [C09.9] INVALID FOR* DIZZINESS AND GIDDINESS [R42] INVALID FOR* More... 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 Depression [F32.9] INVALID FOR* More... GERD (gastroesophageal reflux disease) [K21.9] INVALID FOR* More... Vitamin d deficiency [E55.9] Hyperlipidemia [E78.5] More... Hearing loss [H91.90] INVALID FOR* BPPV (benign paroxysmal positional vertigo) [H8*INVALID FOR* Tonsillar cancer [C09.9] INVALID FOR* CAD (coronary artery disease) [I25.10] More... Carotid artery stenosis, symptomatic [I65.29] More... Encounter for screening colonoscopy [Z12.11] INVALID FOR* Diverticula of colon [K57.30] INVALID FOR* Gastritis [K29.70] INVALID FOR* Irritation around percutaneous endoscopic gastr*INVALID FOR* Essential hypertension, benign [I10] More... Labile blood pressure [R09.89] INVALID FOR* Other pain disorders related to psychological f*INVALID FOR* Adjustment disorder with mixed anxiety and depr*INVALID FOR* Asthma, moderate persistent, poorly-controlled * Arthritis [M19.90] INVALID FOR* More... Orthostatic hypotension [I95.1] INVALID FOR* More... COPD with chronic bronchitis (HCC) [J44.9] INVALID FOR* More... Hypertension [I10] INVALID FOR* More... Environmental allergies [Z91.09] INVALID FOR* More... Complication of gastrostomy tube (HCC) [K94.20] INVALID FOR* Reflux esophagitis [K21.0] More... Essential hypertension [I10] INVALID FOR* Internal carotid artery stenosis, bilateral [I6*INVALID FOR* Malnutrition of mild degree (HCC) [E44.1] INVALID FOR* Letter Text Encounter Status:Closed by LUTHER NIETO MD on 12/04/17 PROGRESS Observed: 11/21/2017 Status: COMPLETED Source: [place] 10:02 AM [facility] REPOSITORY HNO ID: [id number] Author: Jeremias Burns Service: (none) Author Type: Nurse Practitioner Type: Progress Notes Filed: 11/22/2017 8:05 AM Note Text: CC: Patient presents with: Established Patient: [facility] D/C carotid stent placed left side; TCM HPI Shayan Culver is a 67 year old male who presents today for follow up after Left carotid stent placed on 11/08/17. Patient was monitored in ICU overnight and discharged home the following day, 11/09/17. Since his return home patient reports he is feeling much better. Notes change in his energy level, reports his vision is improved specifically how his eyes react to sun light and dizziness is significantly better. Does report intermittent tingling sensation to the inner aspect of his right arm. Denies any pain, weakness, incisional swelling, drainage or bruising. Patient denies any headaches, chest pain, worsening SOB, new or worsening dizziness/lightheadedness. Patient is expected to have the same procedure on the right side next week. Patient also complained of ongoing bilateral knee pain after he sustained a fall ~4 months ago. He reports falling backwards off a step. He was evaluated in the urgent care for the same complaint back in September. Xrays were completd at that time showing no acute changes or fractures. Patient states that his pain continues to bilateral knees and thighs.Pain is constant and intensifies with standing. Described as a sharp pain, rated currently 1 out of 10 with standing. Tylenol for pain only takes edge off. Also using biofreeze daily. Denies any joint swelling, redness, weakness or numbness/tingling of lower extremities. HTN: Mr. Culver indicates that he is feeling well and denies any symptoms referable to elevated blood pressure. Specifically denies headache, chest pain, palpitations, dyspnea and peripheral edema. Patient denies any side effects of his medication(s) and is compliant with their regimen. Last 3 Encounter BP Readings: Date: BP: 11/21/2017 140/72 10/17/2017 148/113 09/30/2017 110/84 COPD. Shayan Culver 67 year old male presents today in follow up of COPD. Current symptoms include chronic cough and shortness of breath on exertion. 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 Depression: Patient reports mood is stable. States he does have down days on occasion, but feels the Zoloft is really helping him. He takes his medication regularly without notable side effects. REVIEW OF SYSTEMS General: no fevers, no chills, no night sweats, no recurrent infections, no change in appetite, no change in energy and no significant changes in weight HEENT: no frequent or significant headaches, no changes in hearing, no visual changes, no nose bleeds, no sinus or nasal problems Respiratory: no wheezing, no hemoptysis Cardiovascular: no chest pain, no chest pressure, no palpitations and no swelling GI: No nausea, vomiting, or diarrhea Neurologic: No headache, weakness, numbness, neck stiffness, tremor, vertigo, memory loss, syncope. 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 - Seasonal allergies Dr. Esapna. 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 - Unspecified asthma(493.90) - Vertebral artery occlusion left - Vitamin D deficiency 2012 PAST SURGICAL HISTORY Procedure Laterality Date - APPENDECTOMY 1961 - CABG (4) VEIN GRAFTS AND ARTERIAL GRAFT(S) 02/26/13 - COLONOSCOP W/ OR W/O BRSH SPEC 09/15/13 few diverticula - 10 year follow up - COLONOSCOPY several - EGD W/O BRSH SPECIMEN W/BX 09/15/13 gastritis, gastric band in place, thin PEG site - EGD W/O OR W/BRUSH/WASH 03/28/2010 EGD - EGD W/O OR W/BRUSH/WASH 05/07/2017 EGD - HEART CATHETERIZATION 09/01/14 diffuse disease, no revascularizable target - HEART SURGERY HX - KIDNEY SURGERY HX - PAST SURGICAL HISTORY OF ~1977 kidney stones - PAST SURGICAL HISTORY OF 1976 intestinal bypass - PAST SURGICAL HISTORY OF ~1977 partial intestinal bypass reversal - PAST SURGICAL HISTORY OF 1994 gastric banding - PAST SURGICAL HISTORY OF 01/18/2005 throat cancer - PEG TUBE 03/20/2005 removed after 1 1/2y - REMOVAL GALLBLADDER ~1977 - XRAY CHEST 1 VIEW 06/06/15 hyperinflation and scarring ALLERGIES Floxin [Ofloxacin]; Flagyl [Metronidazole Hcl]; Ciprofloxacin; Morphine MEDICATIONS esomeprazole (NEXIUM) 40 mg capsule Take 1 capsule by mouth daily before breakfast. 1/2 hr before meal. diazePAM (VALIUM) 5 mg tablet Take 4 mg by mouth every 6 hours as needed (sleep). clopidogrel (PLAVIX) 75 mg tablet Take 1 tablet by mouth once daily. ranitidine (ZANTAC) 150 mg tablet Take 1 tablet by mouth twice daily. albuterol HFA (VENTOLIN HFA) 90 mcg/actuation inhaler Inhale 2 Puffs as instructed every 4 hours as needed for Wheezing/Shortness of Breath. fluticasone (FLONASE) 50 mcg/actuation nasal spray Use 1 [place] in each nostril daily at bedtime. guaiFENesin (MUCINEX) 1,200 mg Ta12 Take 1 tablet by mouth once daily. meclizine (ANTIVERT) 12.5 mg tab Take 1 tablet by mouth twice daily. levothyroxine (SYNTHROID) 75 mcg tablet Take 1 tablet by mouth once daily. sertraline (ZOLOFT) 100 mg tablet Take 0.5 tablets by mouth twice daily. atorvastatin (LIPITOR) 20 mg tablet Take 1 tablet by mouth once daily. aspirin 325 mg tablet Take 81 mg by mouth once daily. potassium chloride (K-TAB) 10 mEq tablet Take 1 tablet by mouth daily with breakfast. MULTIVITAMIN TAB Take one(1) tablet daily. FAMILY HISTORY Problem Relation Age of Onset - Diabetes Mother - Coronary Artery Disease Mother - Psychiatry Mother depression - Cancer Mother lung - Cancer Father esophagus - Asthma Father - esophageal cancer [OTHER] Father - Diabetes Brother - Alcohol/Drug Maternal Uncle - Alcohol/Drug Maternal Grandfather - Coronary Artery Disease Maternal Grandfather - Heart Maternal Grandfather - Alcohol/Drug Brother - Cancer Maternal Uncle throat - Coronary Artery Disease Maternal Aunt - Diabetes Maternal Grandmother - Diabetes Paternal Grandmother - Diabetes Maternal Aunt x2 - Heart Maternal Aunt x2 Social History Substance Use Topics - Smoking status: Never Smoker - Smokeless tobacco: Never Used Comment: Parents smoked in childhood. Spouse smokes. - Alcohol use No PHYSICAL EXAM BP 140/72 (BP Site: Right Arm, BP Position: Sitting, BP Cuff Size: Regular Adult) Pulse 88 Resp 12 Ht 185.4 cm (6' 1) Wt 90.7 kg (200 lb) SpO2 97% BMI 26.39 kg/m2 General Appearance: well appearing, in no acute distress, alert Skin: Skin color, texture, turgor normal for age; Head: normocephalic, atraumatic Eyes: conjunctiva pink and moist, no icterus, sclera white, non-injected Oropharynx: lips normal without lesions, buccal mucosa dry, tongue midline and normal, soft palate, uvula, and tonsils normal Lungs: Lungs clear to auscultation. No wheezing, rhonchi, rales Heart: RRR without murmur, gallop, or rubs. No ectopy Bilateral Lower Extremities: No deformities, edema, skin discoloration, clubbing or cyanosis. Good capillary refill. TETANUS due on 11/13/1963 HEPATITIS C SCREENING due on 1996 PNEUMOVAX AGE 65 AND OVER WITH 5YR LOOKBACK(1) due on 2017 DIABETES SCREEN due on 11/09/2020 LIPID SCREEN due on 09/07/2021 COLORECTAL CANCER SCREENING,SEE MODIFIER due on 09/15/2023 PROSTATE CANCER SCREENING DISCUSSION Completed ADULT PREVNAR-13 Completed INFLUENZA Completed ASSESSMENT/PLAN: 1. Coronary artery disease involving ivanof bay heart without angina pectoris, unspecified vessel or lesion type - ICD9: 414.01, ICD10: I25.10 (primary diagnosis) - Recent L CEA 11/08/17. Post-operatively doing well - Scheduled for R CEA 11/27/17 - Follow up with cardiology as planned 2. Essential hypertension - ICD9: 401.9, ICD10: I10 - good control - Continue current medication(s) - Recheck in 4 months, sooner should new symptoms or problems arise. - Goal of BP <140/90 3. COPD with chronic bronchitis (HCC) - ICD9: 491.20, ICD10: J44.9 - Stable - Upcoming appointment with pulmonology - Follow up in 4 months, sooner if new or worsening symptoms 4. Adjustment disorder with mixed anxiety and depressed mood - ICD9: 309.28, ICD10: F43.23 - Stable - Continue Zoloft as prescribed - Follow up in 4 months, sooner if new or worsening symptoms 5. Acute pain of both knees - ICD9: 338.19, 719.46, ICD10: M25.561, M25.562 - Encouraged rest, ice/heat and PRN analgesics - Prescription for Naproxen given, patient instructed to confirm with cardiology before starting d/t upcoming procedure - Patient would most like benefit from PT after he is recovered from upcoming surgery Prescription instructions reviewed with patient as applicable. Potential red flag symptoms discussed with the patient. Reviewed appropriate action plan to take if red flag symptoms occur. Patient agreeable to treatment plan. Jeremias Burns APRN.M48 M60 ARMOR CREWMAN CNOV Observed: 11/21/2017 Status: COMPLETED Source: [place] 10:00 AM [facility] REPOSITORY Office Visit (INTMWS) SHAYAN CULVER ([id number]) 1950 M Date Time Provider Department 11/21/17 10:00 AM JEREMIAS BURNS ([facility]) INTMWS During your visit today, we recorded the following information about you: Pulse Respiration Blood pressure Weight 88/minute 12/minute 140/72 90.7 kg Height 1.854 m Kamila Casas WATER RESOURCES PROGRAM DIRECTOR 11/22/2017 8:05 AM Signed Provider Action/FYI: Pt w/L CEA, doing well. ? Initial contact with patient post discharge, spoke to Shayan. Patient identified by name and . ? SUMMARY: -Pt discharged from [facility] on 11/08. -Follow up appointment on 11/21/17 w/AJ Portillo. -Medication review done with pt. -Admitted for: L. CEA ? CONCERNS: None, doing well. Surprised he's doing so well and feeling so well. ? NEW MEDICATIONS: None ? MEDS HELD/DISCONTINUED: None ? BRIEF HOSPITAL COURSE: Operations:?Procedure(s) (LRB): SELECTIVE CATH PLACEMENT COMMON CAROTID OR INNOMINATE ARTERY BILATERAL W/ ANGIOGRAPHY OF THE IPSILATERAL EXTRACRANIAL CAROTID CIRCULATION AND ALL ASSOCIATED ?W/ ANGIOGRAPHY OF THE CERVICOCEREBRAL ARCH (N/A), 11/08/2017 Surgeon:?Luther Nieto ?? Other Procedures performed while hospitalized:? Insertion of Left Internal Carotid Artery Stent, 11/08/2017 ?? Hospital Course:?Pt had insertion of L carotid stent and was monitored in the ICU overnight for neurologic changes. Pt's BP was controlled without IV medications and the pt had no pain or neurologic changes after the procedure. Pt was started on a diet which he tolerated ANDamp; was advanced. Pt was discharged to home on POD1 in stable condition. ?? Operative Complications:?No ?? Complications prior to discharge:?No ?? Labs and Procedures Pending at Discharge:?No pending results.? ?? Consulting Teams During Hospitalization: Treatment Team: Attending Provider: Luther Nieto ?? Condition at Discharge:?Stable ? Note Details Additional Documentation Flowsheets: ? Source of Stratification SmartForms: ? [facility] CARE COORDINATE ACCEPT YN Encounter Info: ? Billing Info, History, Allergies, Detailed Report Jeremias Burns APRN.CLARA 11/22/2017 8:05 AM Signed CC: Patient presents with: Established Patient: [facility] D/C carotid stent placed left side; TCM HPI Shayan Culver is a 67 year old male who presents today for follow up after Left carotid stent placed on 11/08/17. Patient was monitored in ICU overnight and discharged home the following day, 11/09/17. Since his return home patient reports he is feeling much better. Notes change in his energy level, reports his vision is improved specifically how his eyes react to sun light and dizziness is significantly better. Does report intermittent tingling sensation to the inner aspect of his right arm. Denies any pain, weakness, incisional swelling, drainage or bruising. Patient denies any headaches, chest pain, worsening SOB, new or worsening dizziness/lightheadedness. Patient is expected to have the same procedure on the right side next week. Patient also complained of ongoing bilateral knee pain after he sustained a fall ~4 months ago. He reports falling backwards off a step. He was evaluated in the urgent care for the same complaint back in September. Xrays were completd at that time showing no acute changes or fractures. Patient states that his pain continues to bilateral knees and thighs.Pain is constant and intensifies with standing. Described as a sharp pain, rated currently 1 out of 10 with standing. Tylenol for pain only takes edge off. Also using biofreeze daily. Denies any joint swelling, redness, weakness or numbness/tingling of lower extremities. HTN: Mr. Culver indicates that he is feeling well and denies any symptoms referable to elevated blood pressure. Specifically denies headache, chest pain, palpitations, dyspnea and peripheral edema. Patient denies any side effects of his medication(s) and is compliant with their regimen. Last 3 Encounter BP Readings: Date: BP: 11/21/2017 140/72 10/17/2017 148/113 09/30/2017 110/84 COPD. Shayan Culver 67 year old male presents today in follow up of COPD. Current symptoms include chronic cough and shortness of breath on exertion. 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 Depression: Patient reports mood is stable. States he does have down days on occasion, but feels the Zoloft is really helping him. He takes his medication regularly without notable side effects. REVIEW OF SYSTEMS General: no fevers, no chills, no night sweats, no recurrent infections, no change in appetite, no change in energy and no significant changes in weight HEENT: no frequent or significant headaches, no changes in hearing, no visual changes, no nose bleeds, no sinus or nasal problems Respiratory: no wheezing, no hemoptysis Cardiovascular: no chest pain, no chest pressure, no palpitations and no swelling GI: No nausea, vomiting, or diarrhea Neurologic: No headache, weakness, numbness, neck stiffness, tremor, vertigo, memory loss, syncope. See HPI PAST MEDICAL HISTORY Diagnosis Date - BPH (benign prostatic hyperplasia) - CAD (coronary artery disease) - Carotid stenosis LANDgt;R - COPD (chronic obstructive pulmonary disease) ([facility]) - Essential hypertension, benign Labile hyper and hypotensive - GERD (gastroesophageal reflux disease) 2012 - History of gastric bypass - Hyperlipidemia - Hypothyroidism - Major depressive disorder, single episode, moderate (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) 02/2013 CABG x 4 - Orthostatic hypotension - Reflux esophagitis Confirmed by Ba swallow. - Seasonal allergies Dr. Espana. - Stroke (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 - Unspecified asthma(493.90) - Vertebral artery occlusion left - Vitamin D deficiency 2012 PAST SURGICAL HISTORY Procedure Laterality Date - APPENDECTOMY 1961 - CABG (4) VEIN GRAFTS ANDamp; ARTERIAL GRAFT(S) 02/26/13 - COLONOSCOP W/ OR W/O BRSH SPEC 09/15/13 few diverticula - 10 year follow up - COLONOSCOPY ANDquot;severalANDquot; - EGD W/O BRS SPECIMEN W/BX 09/15/13 gastritis, gastric band in place, thin PEG site - EGD W/O OR W/BRUSH/WASH 03/28/2010 EGD - EGD W/O OR W/BRUSH/WASH 05/07/2017 EGD - HEART CATHETERIZATION 1/28/15 diffuse disease, no revascularizable target - HEART SURGERY HX - KIDNEY SURGERY HX - PAST SURGICAL HISTORY OF ~1977 kidney stones - PAST SURGICAL HISTORY OF 1976 intestinal bypass - PAST SURGICAL HISTORY OF ~1977 partial intestinal bypass reversal - PAST SURGICAL HISTORY OF 1994 gastric banding - PAST SURGICAL HISTORY OF 01/18/2005 throat cancer - PEG TUBE 03/20/2005 removed after 1 1/2y - REMOVAL GALLBLADDER ~1977 - XRAY CHEST 1 VIEW 06/06/15 hyperinflation and scarring ALLERGIES Floxin [Ofloxacin]; Flagyl [Metronidazole Hcl]; Ciprofloxacin; Morphine MEDICATIONS esomeprazole (NEXIUM) 40 mg capsule Take 1 capsule by mouth daily before breakfast. 1/2 hr before meal. diazePAM (VALIUM) 5 mg tablet Take 4 mg by mouth every 6 hours as needed (sleep). clopidogrel (PLAVIX) 75 mg tablet Take 1 tablet by mouth once daily. ranitidine (ZANTAC) 150 mg tablet Take 1 tablet by mouth twice daily. albuterol HFA (VENTOLIN HFA) 90 mcg/actuation inhaler Inhale 2 Puffs as instructed every 4 hours as needed for Wheezing/Shortness of Breath. fluticasone (FLONASE) 50 mcg/actuation nasal spray Use 1 [place] in each nostril daily at bedtime. guaiFENesin (MUCINEX) 1,200 mg Ta12 Take 1 tablet by mouth once daily. meclizine (ANTIVERT) 12.5 mg tab Take 1 tablet by mouth twice daily. levothyroxine (SYNTHROID) 75 mcg tablet Take 1 tablet by mouth once daily. sertraline (ZOLOFT) 100 mg tablet Take 0.5 tablets by mouth twice daily. atorvastatin (LIPITOR) 20 mg tablet Take 1 tablet by mouth once daily. aspirin 325 mg tablet Take 81 mg by mouth once daily. potassium chloride (K-TAB) 10 mEq tablet Take 1 tablet by mouth daily with breakfast. MULTIVITAMIN TAB Take one(1) tablet daily. FAMILY HISTORY Problem Relation Age of Onset - Diabetes Mother - Coronary Artery Disease Mother - Psychiatry Mother depression - Cancer Mother lung - Cancer Father esophagus - Asthma Father - esophageal cancer [OTHER] Father - Diabetes Brother - Alcohol/Drug Maternal Uncle - Alcohol/Drug Maternal Grandfather - Coronary Artery Disease Maternal Grandfather - Heart Maternal Grandfather - Alcohol/Drug Brother - Cancer Maternal Uncle throat - Coronary Artery Disease Maternal Aunt - Diabetes Maternal Grandmother - Diabetes Paternal Grandmother - Diabetes Maternal Aunt x2 - Heart Maternal Aunt x2 Social History Substance Use Topics - Smoking status: Never Smoker - Smokeless tobacco: Never Used Comment: Parents smoked in childhood. Spouse smokes. - Alcohol use No PHYSICAL EXAM BP 140/72 (BP Site: Right Arm, BP Position: Sitting, BP Cuff Size: Regular Adult) Pulse 88 Resp 12 Ht 185.4 cm (6' 1ANDquot;) Wt 90.7 kg (200 lb) SpO2 97% BMI 26.39 kg/m2 General Appearance: well appearing, in no acute distress, alert Skin: Skin color, texture, turgor normal for age; Head: normocephalic, atraumatic Eyes: conjunctiva pink and moist, no icterus, sclera white, non-injected Oropharynx: lips normal without lesions, buccal mucosa dry, tongue midline and normal, soft palate, uvula, and tonsils normal Lungs: Lungs clear to auscultation. No wheezing, rhonchi, rales Heart: RRR without murmur, gallop, or rubs. No ectopy Bilateral Lower Extremities: No deformities, edema, skin discoloration, clubbing or cyanosis. Good capillary refill. TETANUS due on 11/13/1963 HEPATITIS C SCREENING due on 1996 PNEUMOVAX AGE 65 AND OVER WITH 5YR LOOKBACK(1) due on 2017 DIABETES SCREEN due on 11/09/2020 LIPID SCREEN due on 09/07/2021 COLORECTAL CANCER SCREENING,SEE MODIFIER due on 09/15/2023 PROSTATE CANCER SCREENING DISCUSSION Completed ADULT PREVNAR-13 Completed INFLUENZA Completed ASSESSMENT/PLAN: 1. Coronary artery disease involving ivanof bay heart without angina pectoris, unspecified vessel or lesion type - ICD9: 414.01, ICD10: I25.10 (primary diagnosis) - Recent L CEA 11/08/17. Post-operatively doing well - Scheduled for R CEA 11/27/17 - Follow up with cardiology as planned 2. Essential hypertension - ICD9: 401.9, ICD10: I10 - good control - Continue current medication(s) - Recheck in 4 months, sooner should new symptoms or problems arise. - Goal of BP ANDlt;140/90 3. COPD with chronic bronchitis (HCC) - ICD9: 491.20, ICD10: J44.9 - Stable - Upcoming appointment with pulmonology - Follow up in 4 months, sooner if new or worsening symptoms 4. Adjustment disorder with mixed anxiety and depressed mood - ICD9: 309.28, ICD10: F43.23 - Stable - Continue Zoloft as prescribed - Follow up in 4 months, sooner if new or worsening symptoms 5. Acute pain of both knees - ICD9: 338.19, 719.46, ICD10: M25.561, M25.562 - Encouraged rest, ice/heat and PRN analgesics - Prescription for Naproxen given, patient instructed to confirm with cardiology before starting d/t upcoming procedure - Patient would most like benefit from PT after he is recovered from upcoming surgery Prescription instructions reviewed with patient as applicable. Potential red flag symptoms discussed with the patient. Reviewed appropriate action plan to take if red flag symptoms occur. Patient agreeable to treatment plan. Jeremias Burns APRN.M48 M60 ARMOR CREWMAN Referring Provider: LAURA GROVE [[id number]] Allergies As of Date: 11/21/2017 Noted Allergy Reaction FLOXIN (OFLOXACIN) 10/09/2005 1 - Mental Status Change Comments: Severe depression. FLAGYL (METRONIDAZOLE HCL) 01/15/2005 1 - Mental Status Change Comments: Depression. CIPROFLOXACIN 02/16/2013 6 - Diarrhea 16 - Unknown Comments: ? diarrhea. MORPHINE 12/28/2016 1 - Mental Status Change Date Reviewed: 11/21/2017 Reviewed by: Kamila Casas LPN - Fully Assessed Reason for Visit: Established Patient [175] Cmt: [facility] D/C carotid stent placed left side; TCM Reason For Visit History Recorded Primary Visit Diagnosis:Coronary artery disease involving ivanof bay heart without angina pectoris, unspecified vessel or lesion type [I25.10] Other Visit Diagnoses:Essential hypertension [I10] COPD with chronic bronchitis (HCC) [J44.9] Adjustment disorder with mixed anxiety and depressed mood [F43.23] Acute pain of both knees [M25.561, M25.562] Order(s):naproxen (NAPROSYN) 500 mg tabletTake 1 tablet by mouth twice daily as needed (for pain/inflammation). Take with food.Disp: 30 tabletRfl: 0 Prescriptions as of 11/21/2017 Sig: NAPROXEN 500 MG TABLET Take 1 tablet by mouth twice * ESOMEPRAZOLE MAGNESIUM 40 MG * Take 1 capsule by mouth daily* DIAZEPAM 5 MG TABLET Take 4 mg by mouth every 6 ho* CLOPIDOGREL 75 MG TABLET Take 1 tablet by mouth once d* RANITIDINE 150 MG TABLET Take 1 tablet by mouth twice * ALBUTEROL SULFATE HFA 90 MCG/* Inhale 2 Puffs as instructed * FLUTICASONE 50 MCG/ACTUATION * Use 1 [place] in each nostril d* GUAIFENESIN ER 1,200 MG TABLE* Take 1 tablet by mouth once d* MECLIZINE 12.5 MG TABLET Take 1 tablet by mouth twice * LEVOTHYROXINE 75 MCG TABLET Take 1 tablet by mouth once d* SERTRALINE 100 MG TABLET Take 0.5 tablets by mouth twi* ATORVASTATIN 20 MG TABLET Take 1 tablet by mouth once d* ASPIRIN 325 MG TABLET Take 81 mg by mouth once genaro* POTASSIUM CHLORIDE ER 10 MEQ * Take 1 tablet by mouth daily * MULTIVITAMIN TABLET Take one(1) tablet daily. Problem List As Of Date 11/21/2017 Noted Resolved MALIGNANT NEOPL TONSIL [C09.9] INVALID FOR* DIZZINESS AND GIDDINESS [R42] INVALID FOR* More... 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 Depression [F32.9] INVALID FOR* More... GERD (gastroesophageal reflux disease) [K21.9] INVALID FOR* More... Vitamin d deficiency [E55.9] Hyperlipidemia [E78.5] More... Hearing loss [H91.90] INVALID FOR* BPPV (benign paroxysmal positional vertigo) [H8*INVALID FOR* Tonsillar cancer [C09.9] INVALID FOR* CAD (coronary artery disease) [I25.10] More... Carotid artery stenosis, symptomatic [I65.29] More... Encounter for screening colonoscopy [Z12.11] INVALID FOR* Diverticula of colon [K57.30] INVALID FOR* Gastritis [K29.70] INVALID FOR* Irritation around percutaneous endoscopic gastr*INVALID FOR* Essential hypertension, benign [I10] More... Labile blood pressure [R09.89] INVALID FOR* Other pain disorders related to psychological f*INVALID FOR* Adjustment disorder with mixed anxiety and depr*INVALID FOR* Asthma, moderate persistent, poorly-controlled * Arthritis [M19.90] INVALID FOR* More... Orthostatic hypotension [I95.1] INVALID FOR* More... COPD with chronic bronchitis (HCC) [J44.9] INVALID FOR* More... Hypertension [I10] INVALID FOR* More... Environmental allergies [Z91.09] INVALID FOR* More... Complication of gastrostomy tube (HCC) [K94.20] INVALID FOR* Reflux esophagitis [K21.0] More... Essential hypertension [I10] INVALID FOR* Internal carotid artery stenosis, bilateral [I6*INVALID FOR* Malnutrition of mild degree (HCC) [E44.1] INVALID FOR* Prescriptions ordered this encounter Disp Refills Start End NAPROXEN 500 MG TABLET 30 t* 0 11/21/2017 Route: ORAL Sig: Take 1 tablet by mouth twice daily as needed (for pain/inflammation). Take with food. Encounter Status:Closed by JEREMIAS BURNS CNP on 11/22/17 PROGRESS Observed: 11/21/2017 Status: COMPLETED Source: [place] 9:56 AM [facility] REPOSITORY O ID: [id number] Author: Kamila Casas LPN Service: (none) Author Type: (none) Type: Progress Notes Filed: 11/22/2017 8:05 AM Note Text: Provider Action/FYI: Pt w/L CEA, doing well. ? Initial contact with patient post discharge, spoke to Shayan. Patient identified by name and . ? SUMMARY: -Pt discharged from [facility] on 11/08. -Follow up appointment on 11/21/17 w/AJ Portillo. -Medication review done with pt. -Admitted for: L. CEA ? CONCERNS: None, doing well. Surprised he's doing so well and feeling so well. ? NEW MEDICATIONS: None ? MEDS HELD/DISCONTINUED: None ? BRIEF HOSPITAL COURSE: Operations:?Procedure(s) (LRB): SELECTIVE CATH PLACEMENT COMMON CAROTID OR INNOMINATE ARTERY BILATERAL W/ ANGIOGRAPHY OF THE IPSILATERAL EXTRACRANIAL CAROTID CIRCULATION AND ALL ASSOCIATED ?W/ ANGIOGRAPHY OF THE CERVICOCEREBRAL ARCH (N/A), 11/08/2017 Surgeon:?Luther Nieto ?? Other Procedures performed while hospitalized:? Insertion of Left Internal Carotid Artery Stent, 11/08/2017 ?? Hospital Course:?Pt had insertion of L carotid stent and was monitored in the ICU overnight for neurologic changes. Pt's BP was controlled without IV medications and the pt had no pain or neurologic changes after the procedure. Pt was started on a diet which he tolerated AND was advanced. Pt was discharged to home on POD1 in stable condition. ?? Operative Complications:?No ?? Complications prior to discharge:?No ?? Labs and Procedures Pending at Discharge:?No pending results.? ?? Consulting Teams During Hospitalization: Treatment Team: Attending Provider: Luther Nieto ?? Condition at Discharge:?Stable ? Note Details Additional Documentation Flowsheets: ? Source of Stratification SmartForms: ? [facility] CARE COORDINATE ACCEPT YN Encounter Info: ? Billing Info, History, Allergies, Detailed Report HOSP Observed: 11/14/2017 Status: COMPLETED Source: [place] 12:00 AM [facility] RE[facility] Patient:Shayan Culver MRN: <[id number]> Height:6' 0(1.829 m) Weight:200 lb (90.719 kg) Outpatient Medications as of 12/06/17: naproxen (NAPROSYN) 500 mg tablet esomeprazole (NEXIUM) 40 mg capsule diazePAM (VALIUM) 5 mg tablet clopidogrel (PLAVIX) 75 mg tablet ranitidine (ZANTAC) 150 mg tablet albuterol HFA (VENTOLIN HFA) 90 mcg/actuation inhaler fluticasone (FLONASE) 50 mcg/actuation nasal spray guaiFENesin (MUCINEX) 1,200 mg Ta12 meclizine (ANTIVERT) 12.5 mg tab levothyroxine (SYNTHROID) 75 mcg tablet sertraline (ZOLOFT) 100 mg tablet atorvastatin (LIPITOR) 20 mg tablet aspirin 325 mg tablet potassium chloride (K-TAB) 10 mEq tablet MULTIVITAMIN TAB Admission/Clinic Administered Medications as of 12/06/17: Patient has no admission medications. 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] Depression [F32.9] GERD (gastroesophageal reflux disease) [K21.9] Vitamin D deficiency [E55.9] Hyperlipidemia [E78.5] Hearing loss [H91.90] BPPV (benign paroxysmal positional vertigo) [H81.10] Tonsillar cancer (HCC) [C09.9] CAD (coronary artery disease) [I25.10] Carotid artery stenosis, symptomatic [I65.29] Encounter for screening colonoscopy [Z12.11] Diverticula of colon [K57.30] Gastritis [K29.70] Irritation around percutaneous endoscopic gastrostomy (PEG) tube site (HCC) [K94.29] Essential hypertension, benign [I10] Labile blood pressure [R09.89] Other pain disorders related to psychological factors [F45.42] Adjustment disorder with mixed anxiety and depressed mood [F43.23] Asthma, moderate persistent, poorly-controlled [J45.40] Arthritis [M19.90] Orthostatic hypotension [I95.1] COPD with chronic bronchitis (HCC) [J44.9] Hypertension [I10] Environmental allergies [Z91.09] Complication of gastrostomy tube (HCC) [K94.20] Reflux esophagitis [K21.0] Essential hypertension [I10] Internal carotid artery stenosis, bilateral [I65.23] Malnutrition of mild degree (HCC) [E44.1] Allergies: Floxin [Ofloxacin] Flagyl [Metronidazole Hcl] Ciprofloxacin Morphine Date Verified: 12/04/17 Lab Values Lab Value Units Date High Low POTA* 3.7 mEq/L 11/09/2017 5.1 3.5 Progress Notes ([facility]): DENYS Novak Angel 12/02/2017 9:33 AM Signed Mr. Culver is reschedule to have right carotid stenting on 12/06/17 arrival time 8:30am procedure time 9:30am at [facility]. ? NPO after midnight. Ok to continue ASA AND Plavix. ? Valium 15mg prior to procedure sent to [facility] [phone]. ? This information was phoned to Mrs. Culver. Progress Notes ([facility]): Luther Nieto 12/04/2017 1:43 PM Signed This patient is seen back in follow-up of his carotid stent that was performed on the left. This looked quite good upon completion and he has had no sequelae from this. He has no swelling or pain in his groin at this time. He is to undergo stenting of his right internal carotid artery in about a week from now. Overall the patient still has high anxiety about this and comes into the hospital hypertensive and we had to place an arterial line and control his blood pressure with nitroglycerin on the last visit. Immediately after performing the procedure he became normotensive and almost hypotensive and therefore I understand the problems that his primary physicians have in keeping him on any type of blood pressure medication I'm sure however he is having the spikes in blood pressure the problem is that when he gets hypotensive he has had episodes of near syncope and syncope which is not good either. At this point I'm going to go ahead and just plan on trying to give him a little more anxiolytic medication before the procedure and then proceed with seeing if we can do it without doing an arterial line this time. He have him set up for next Saturday for the procedure he is going to follow-up with us at that time PROGRESS Observed: 2017 Status: COMPLETED Source: [place] 6:13 PM [facility] REPOSITORY HNO ID: [id number] Author: Graciela Capps [facility] Service: (none) Author Type: Registered Nurse Type: Progress Notes Filed: 11/13/2017 9:25 AM Note Text: TRANSITION CARE MANAGEMENT (TCM) INITIAL CONTACT Provider Action/FYI: Pt w/L CEA, doing well. Initial contact with patient post discharge, spoke to Shayan. Patient identified by name and . SUMMARY: -Pt discharged from [facility] on 11/08. -Follow up appointment on 11/21/17 w/AJ Portillo. -Medication review done with pt. -Admitted for: L. CEA CONCERNS: None, doing well. Surprised he's doing so well and feeling so well. NEW MEDICATIONS: None MEDS HELD/DISCONTINUED: None BRIEF HOSPITAL COURSE: Operations: Procedure(s) (LRB): SELECTIVE CATH PLACEMENT COMMON CAROTID OR INNOMINATE ARTERY BILATERAL W/ ANGIOGRAPHY OF THE IPSILATERAL EXTRACRANIAL CAROTID CIRCULATION AND ALL ASSOCIATED W/ ANGIOGRAPHY OF THE CERVICOCEREBRAL ARCH (N/A), 11/08/2017 Surgeon: Luther Nieto ? Other Procedures performed while hospitalized: Insertion of Left Internal Carotid Artery Stent, 11/08/2017 ? Hospital Course: Pt had insertion of L carotid stent and was monitored in the ICU overnight for neurologic changes. Pt's BP was controlled without IV medications and the pt had no pain or neurologic changes after the procedure. Pt was started on a diet which he tolerated AND was advanced. Pt was discharged to home on POD1 in stable condition. ? Operative Complications: No ? Complications prior to discharge: No ? Labs and Procedures Pending at Discharge: No pending results. ? Consulting Teams During Hospitalization: Treatment Team: Attending Provider: Luther Nieto ? Condition at Discharge: Stable CNPTOUTREACH Observed: 2017 Status: COMPLETED Source: [place] 12:00 AM [facility] REPOSITORY Patient Outreach (INTMWS) SHAYAN CULVER ([id number]) 1950 M Date Time Provider Department 11/12/17 GRACIELA OCAMPO During your visit today, we recorded the following information about you: Graciela Capps RN 11/13/2017 9:25 AM Signed TRANSITION CARE MANAGEMENT (TCM) INITIAL CONTACT Provider Action/FYI: Pt w/L CEA, doing well. Initial contact with patient post discharge, spoke to Shayan. Patient identified by name and . SUMMARY: -Pt discharged from [facility] on 11/08. -Follow up appointment on 11/21/17 w/AJ Portillo. -Medication review done with pt. -Admitted for: L. CEA CONCERNS: None, doing well. Surprised he's doing so well and feeling so well. NEW MEDICATIONS: None MEDS HELD/DISCONTINUED: None BRIEF HOSPITAL COURSE: Operations: Procedure(s) (LRB): SELECTIVE CATH PLACEMENT COMMON CAROTID OR INNOMINATE ARTERY BILATERAL W/ ANGIOGRAPHY OF THE IPSILATERAL EXTRACRANIAL CAROTID CIRCULATION AND ALL ASSOCIATED W/ ANGIOGRAPHY OF THE CERVICOCEREBRAL ARCH (N/A), 11/08/2017 Surgeon: Luther Nieto ? Other Procedures performed while hospitalized: Insertion of Left Internal Carotid Artery Stent, 11/08/2017 ? Hospital Course: Pt had insertion of L carotid stent and was monitored in the ICU overnight for neurologic changes. Pt's BP was controlled without IV medications and the pt had no pain or neurologic changes after the procedure. Pt was started on a diet which he tolerated ANDamp; was advanced. Pt was discharged to home on POD1 in stable condition. ? Operative Complications: No ? Complications prior to discharge: No ? Labs and Procedures Pending at Discharge: No pending results. ? Consulting Teams During Hospitalization: Treatment Team: Attending Provider: Luther Nieto ? Condition at Discharge: Stable Allergies As of Date: 2017 Noted Allergy Reaction FLOXIN (OFLOXACIN) 10/09/2005 1 - Mental Status Change Comments: Severe depression. FLAGYL (METRONIDAZOLE HCL) 01/15/2005 1 - Mental Status Change Comments: Depression. CIPROFLOXACIN 02/16/2013 6 - Diarrhea 16 - Unknown Comments: ? diarrhea. 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 [3610] Prescriptions as of 2017 Sig: ESOMEPRAZOLE MAGNESIUM 40 MG * Take 1 capsule by mouth daily* DIAZEPAM 5 MG TABLET Take 4 mg by mouth every 6 ho* CLOPIDOGREL 75 MG TABLET Take 1 tablet by mouth once d* RANITIDINE 150 MG TABLET Take 1 tablet by mouth twice * ALBUTEROL SULFATE HFA 90 MCG/* Inhale 2 Puffs as instructed * FLUTICASONE 50 MCG/ACTUATION * Use 1 New Century in each nostril d* GUAIFENESIN ER 1,200 MG TABLE* Take 1 tablet by mouth once d* MECLIZINE 12.5 MG TABLET Take 1 tablet by mouth twice * LEVOTHYROXINE 75 MCG TABLET Take 1 tablet by mouth once d* SERTRALINE 100 MG TABLET Take 0.5 tablets by mouth twi* ATORVASTATIN 20 MG TABLET Take 1 tablet by mouth once d* ASPIRIN 325 MG TABLET Take 81 mg by mouth once genaro* POTASSIUM CHLORIDE ER 10 MEQ * Take 1 tablet by mouth daily * MULTIVITAMIN TABLET Take one(1) tablet daily. Problem List As Of Date 2017 Noted Resolved MALIGNANT NEOPL TONSIL [C09.9] INVALID FOR* DIZZINESS AND GIDDINESS [R42] INVALID FOR* More... 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 Depression [F32.9] INVALID FOR* More... GERD (gastroesophageal reflux disease) [K21.9] INVALID FOR* More... Vitamin d deficiency [E55.9] Hyperlipidemia [E78.5] More... Hearing loss [H91.90] INVALID FOR* BPPV (benign paroxysmal positional vertigo) [H8*INVALID FOR* Tonsillar cancer [C09.9] INVALID FOR* CAD (coronary artery disease) [I25.10] More... Carotid stenosis [I65.29] More... Encounter for screening colonoscopy [Z12.11] INVALID FOR* Diverticula of colon [K57.30] INVALID FOR* Gastritis [K29.70] INVALID FOR* Irritation around percutaneous endoscopic gastr*INVALID FOR* Essential hypertension, benign [I10] More... Labile blood pressure [R09.89] INVALID FOR* Other pain disorders related to psychological f*INVALID FOR* Adjustment disorder with mixed anxiety and depr*INVALID FOR* Asthma, moderate persistent, poorly-controlled * Arthritis [M19.90] INVALID FOR* More... Orthostatic hypotension [I95.1] INVALID FOR* More... COPD with chronic bronchitis (HCC) [J44.9] INVALID FOR* More... Hypertension [I10] INVALID FOR* More... Environmental allergies [Z91.09] INVALID FOR* More... Complication of gastrostomy tube (HCC) [K94.20] INVALID FOR* Reflux esophagitis [K21.0] More... Essential hypertension [I10] INVALID FOR* Internal carotid artery stenosis, bilateral [I6*INVALID FOR* Malnutrition of mild degree (HCC) [E44.1] INVALID FOR* Encounter Status:Closed by GRACIELA ROMERO on 11/13/17 CNDS Observed: 11/09/2017 Status: COMPLETED Source: [place] 2:11 PM [facility] REPOSITORY HNO ID: [id number] Author: Xochilt Thomas Service: Vascular Surgery Author Type: Resident Type: Discharge Summaries Filed: 11/09/2017 2:14 PM Note Text: DISCHARGE SUMMARY Name: Shayan Culver Admission Date: 11/08/2017 Discharge Date: November 09, 2017 Attending: Luther Nieto Reason for Hospitalization: Internal carotid artery stenosis, bilateral [I65.23] Secondary Diagnosis: Patient Active Hospital Problem List: Internal carotid artery stenosis, bilateral (11/08/2017) Malnutrition of mild degree (HCC) (11/08/2017) Operations: Procedure(s) (LRB): SELECTIVE CATH PLACEMENT COMMON CAROTID OR INNOMINATE ARTERY BILATERAL W/ ANGIOGRAPHY OF THE IPSILATERAL EXTRACRANIAL CAROTID CIRCULATION AND ALL ASSOCIATED W/ ANGIOGRAPHY OF THE CERVICOCEREBRAL ARCH (N/A), 11/08/2017 Surgeon: Luther Nieto Other Procedures performed while hospitalized: Insertion of Left Internal Carotid Artery Stent, 11/08/2017 Hospital Course: Pt had insertion of L carotid stent and was monitored in the ICU overnight for neurologic changes. Pt's BP was controlled without IV medications and the pt had no pain or neurologic changes after the procedure. Pt was started on a diet which he tolerated AND was advanced. Pt was discharged to home on POD1 in stable condition. Operative Complications: No Complications prior to discharge: No Labs and Procedures Pending at Discharge: No pending results. Consulting Teams During Hospitalization: Treatment Team: Attending Provider: Luther Nieto Condition at Discharge: Stable Discharge Disposition: Home/Self Care Information provided to patient: Copy of Discharge Instructions Instructions: See After Visit Summary Okay to remove bandaid over groin in 24 hours and shower after this time Discharge Medications: Current Discharge Medication List CONTINUE these medications which have NOT CHANGED diazePAM (VALIUM) 4 mg Take 4 mg by mouth every 6 hours as needed (sleep). clopidogrel (PLAVIX) 75 mg Take 75 mg by mouth once daily. Qty: 90 tablet Refills: 3 Associated Diagnoses:Non-ST elevation GA (NSTEMI) ([facility]) NEXIUM 24HR 20 mg capsule TAKE TWO CAPSULES BY MOUTH ONCE DAILY Qty: 60 capsule Refills: 3 Comments: Please consider 90 day supplies to promote better adherence albuterol HFA (PROVENTIL HFA, VENTOLIN HFA) 2 Puffs Inhale 2 Puffs as instructed every 4 hours as needed for Wheezing/Shortness of Breath. Qty: 1 Inhaler Refills: 5 Associated Diagnoses:Asthma, late onset, severe persistent, uncomplicated guaiFENesin 1,200 mg Take 1,200 mg by mouth once daily. Qty: 30 tablet Refills: 3 Associated Diagnoses:Asthma, late onset, severe persistent, uncomplicated; Chronic rhinitis meclizine (ANTIVERT) 12.5 mg Take 12.5 mg by mouth twice daily. Qty: 180 tablet Refills: 3 Comments: Please consider 90 day supplies to promote better adherence levothyroxine (SYNTHROID) 75 mcg Take 75 mcg by mouth once daily. Qty: 90 tablet Refills: 3 sertraline (ZOLOFT) 50 mg Take 50 mg by mouth twice daily. Qty: 30 tablet Refills: 11 atorvastatin (LIPITOR) 20 mg Take 20 mg by mouth once daily. Qty: 90 tablet Refills: 0 aspirin 81 mg Take 81 mg by mouth once daily. Qty: 10 tablet Refills: 0 Associated Diagnoses:SOB (shortness of breath) potassium chloride (K-TAB) 10 mEq Take 10 mEq by mouth daily with breakfast. Refills: 0 Associated Diagnoses:Non-ST elevation GA (NSTEMI) ([facility]) MULTIVITAMIN TAB Take one(1) tablet daily. Refills: 0 ranitidine (ZANTAC) 150 mg Take 150 mg by mouth twice daily. Qty: 60 tablet Refills: 11 Associated Diagnoses:Hypertension, unspecified type fluticasone (FLONASE) 1 New Century Use 1 New Century in each nostril daily at bedtime. Qty: 1 Bottle Refills: 3 Associated Diagnoses:Chronic rhinitis Current Discharge Medication List CONTINUE these medications which have NOT CHANGED diazePAM (VALIUM) 4 mg Take 4 mg by mouth every 6 hours as needed (sleep). clopidogrel (PLAVIX) 75 mg Take 75 mg by mouth once daily. Qty: 90 tablet Refills: 3 Associated Diagnoses:Non-ST elevation GA (NSTEMI) ([facility]) NEXIUM 24HR 20 mg capsule TAKE TWO CAPSULES BY MOUTH ONCE DAILY Qty: 60 capsule Refills: 3 Comments: Please consider 90 day supplies to promote better adherence albuterol HFA (PROVENTIL HFA, VENTOLIN HFA) 2 Puffs Inhale 2 Puffs as instructed every 4 hours as needed for Wheezing/Shortness of Breath. Qty: 1 Inhaler Refills: 5 Associated Diagnoses:Asthma, late onset, severe persistent, uncomplicated guaiFENesin 1,200 mg Take 1,200 mg by mouth once daily. Qty: 30 tablet Refills: 3 Associated Diagnoses:Asthma, late onset, severe persistent, uncomplicated; Chronic rhinitis meclizine (ANTIVERT) 12.5 mg Take 12.5 mg by mouth twice daily. Qty: 180 tablet Refills: 3 Comments: Please consider 90 day supplies to promote better adherence levothyroxine (SYNTHROID) 75 mcg Take 75 mcg by mouth once daily. Qty: 90 tablet Refills: 3 sertraline (ZOLOFT) 50 mg Take 50 mg by mouth twice daily. Qty: 30 tablet Refills: 11 atorvastatin (LIPITOR) 20 mg Take 20 mg by mouth once daily. Qty: 90 tablet Refills: 0 aspirin 81 mg Take 81 mg by mouth once daily. Qty: 10 tablet Refills: 0 Associated Diagnoses:SOB (shortness of breath) potassium chloride (K-TAB) 10 mEq Take 10 mEq by mouth daily with breakfast. Refills: 0 Associated Diagnoses:Non-ST elevation GA (NSTEMI) ([facility]) MULTIVITAMIN TAB Take one(1) tablet daily. Refills: 0 ranitidine (ZANTAC) 150 mg Take 150 mg by mouth twice daily. Qty: 60 tablet Refills: 11 Associated Diagnoses:Hypertension, unspecified type fluticasone (FLONASE) 1 New Century Use 1 New Century in each nostril daily at bedtime. Qty: 1 Bottle Refills: 3 Associated Diagnoses:Chronic rhinitis Follow-Up: Future Appointments Date Time Provider Department Center 2017 12:00 PM [id number] [facility] 11/29/2017 11:45 AM [id number] NIETO [facility] 12/05/2017 8:15 AM [id number] THERAPIST [facility] 12/05/2017 8:30 AM [id number] [facility]ER [facility] Follow Up with Dr. Nieto when pt has carotid stent placed on his other side TIME OF CARE: Discharge Management: I personally spent greater than 30 minutes involved in the discharge management of this patient. Xochilt Thomas DO November 09, 2017 2:11 PM PROGRESS Observed: 11/09/2017 Status: COMPLETED Source: [place] 6:24 AM [facility] OTHER CAMPUS REPOSITORY O ID: [id number] Author: Xochilt Thomas Service: Vascular Surgery Author Type: Resident Type: Progress Notes Filed: 11/09/2017 8:47 AM Note Text: Attestation signed by Sayda Patrick at 11/09/2017 1:48 PM I saw and evaluated the patient. Discussed with the resident and agree with resident's findings and plan as documented in the resident's note. Doing well. Neuro in tact. Puncture site c/d/i. Pt still has yet to get oob. BP controlled currently without drips. D/c either later today after pt walks vs tomorrow. Continue plavix. Sayda Patrick MD Vascular Surgery Progress Note SERVICE DATE: 11/09/2017 SUBJECTIVE: Pt doing very well. His blood pressure and pulse have been WNL without any drips. Pt has no neuro deficits. Is tolerating PO, no N/V. No pain. DIET REGULAR OBJECTIVE: Temp (24hrs), Av.3 ?C (97.4 ?F), Min:36 ?C (96.8 ?F), Max:36.6 ?C (97.9 ?F) BP 137/115 Pulse 84 Temp 36.3 ?C (97.3 ?F) Resp 22 Ht 185.4 cm (6' 1) Wt 90.7 kg (200 lb) SpO2 92% BMI 26.39 kg/m2 O2 Therapy: Room Air Date 11/08/17 07 - 11/09/17 0659 11/09/17 07 - 11/10/17 0659 Shift 9127-3707 6011-9385 7122-5221 24 Hour Total 3787-8353 6539-4639 7154-2832 24 Hour Total I N T A K E PO 120 120 PO 120 120 IV 1038 1038 D5 NS 1038 1038 Shift Total 120 1038 1158 O U T P U T Urine 278 627 6996 Void (ml) 483 222 7331 # of BMs Number of BMs 1 x 1 x Shift Total 059 543 2823 Weight (kg) 90.7 90.7 90.7 90.7 90.7 90.7 90.7 90.7 Current Facility-Administered Medications: dextrose 5% in NaCl 0.9% iv infusion 100 mL/hr INTRAVENOUS CONTINUOUS clopidogrel 75 mg tab(s) (PLAVIX) 75 mg ORAL DAILY enoxaparin 40 mg injection (LOVENOX) 40 mg SUBCUTANEOUS DAILY nitroglycerin 100 mg in D5W 250 mL 10 mcg/min INTRAVENOUS CONTINUOUS aspirin 81 mg tab(s) 81 mg ORAL DAILY meclizine 12.5 mg tab(s) (ANTIVERT) 12.5 mg ORAL BID albuterol HFA 90 mcg/actuation 2 Puff (PROVENTIL HFA, VENTOLIN HFA) 2 Puff INHALATION q 4 H PRN guaiFENesin 1,200 mg ER tab(s) (MUCINEX) 1,200 mg ORAL DAILY multivitamin with folic acid 1 tablet (THERA, ONE DAILY) 1 tablet ORAL DAILY potassium chloride 10 mEq tablet (K-TAB) 10 mEq ORAL DAILY WITH BREAKFAST sertraline 50 mg tab(s) (ZOLOFT) 50 mg ORAL DAILY levothyroxine 75 mcg tab(s) (SYNTHROID) 75 mcg ORAL DAILY famotidine 20 mg tab(s) (PEPCID) 20 mg ORAL BID ondansetron (PF) 4 mg injection (ZOFRAN) 4 mg INTRAVENOUS q 6 H PRN acetaminophen 650 mg tab(s) (TYLENOL) 650 mg ORAL q 4 H PRN Recent Labs 11/09/17 0240 11/06/17 0926 NA 139 142 K 3.7 4.1 CHLOR 108* 101 CO2 26 27 BUN 12 17 CREAT 1.08 1.41* GLUC 105* 112* ANION 9 14 CA 8.4* 9.5 INR -- 1.0 Exam: GENERAL: NAD NEURO: AANDOx3 HEENT: normocephalic, atraumatic, tongue midline, no facial droop LUNGS: Unlabored breathing CARDIAC: Regular rate and rhythm as above ABDOMEN: soft R GROIN: no swelling/hematoma, no ttp EXTREMITIES: EDWARDS, No deformities, No edema; bilateral UE AND LE's strength AND SILT ASSESSMENT AND PLAN: Active Hospital Problems Diagnosis Date Noted - Internal carotid artery stenosis, bilateral 11/08/2017 - Malnutrition of mild degree (HCC) 11/08/2017 66 year old male s/p L ICA stent 11/09/17 for symptomatic carotid stenosis, h/o neck XRT - diet - d/c a line - possibly okay to be discharged today - OOB, ambulate - ASA, plavix, lovenox - scd's Xochilt Thomas, DO General Surgery PGY-4 November 09, 2017 6:26 AM Pager: [phone] BASIC PANEL Collected: 11/09/2017 Status: F Source: [facility] 2:40 AM HEALTH SYSTEM REPOSITORY TYPE CODE TESTS RESULT OUT OF REFERENCE UNITS RANGE LAB NA(LOINC) 136-145 mEq/L Sodium Blood 139 LAB K(LOINC) 3.5-5.1 mEq/L Potassium Blood 3.7 LAB CL(LOINC) 98-107 mEq/L Chloride High Blood 108 LAB CO2(LOINC) 21-32 mEq/L CO2 Blood 26 LAB GLU(LOINC) 70-99 mg/dL Glucose High Blood 105 LAB BUN(LOINC) 7-18 mg/dL BUN Blood 12 LAB CREA(LOINC 0.67-1.17 mg/dL ) Creatinine Blood 1.08 LAB CA(LOINC) 8.5-10.1 mg/dL Low Calcium Blood 8.4 LAB ANGAP(LOIN 8-16 C) Anion Gap 9 Performed By: #### P8 #### [place] [id number] MDRD GFR Collected: 11/09/2017 Status: F Source: [facility] 2:40 AM HEALTH SYSTEM REPOSITORY TYPE CODE TESTS RESULT OUT OF RANGE REFERENCE UNITS LAB GFRFN(LOINC >60mL/min/1.73m ) 2 eGFR >60 Result Comment: If the patient is , multiply the result by 1.210. Performed By: #### GFR #### [facility] [address] [place] [id number] NUTRITION Observed: 11/08/2017 Status: COMPLETED Source: [place] 2:29 PM [facility] OTHER [facility] REPOSITORY HNO ID: [id number] Author: Neela Davis) CRYSTAL Valera Service: Nutrition Therapy Author Type: Registered Dietitian Type: Nutrition Filed: 11/08/2017 2:47 PM Note Text: NUTRITION THERAPY INITIAL ASSESSMENT SERVICE DATE: 11/08/2017 SERVICE TIME: 2:29 PM RECOMMENDED MALNUTRITION DIAGNOSIS: MILD PROTEIN-CALORIE MALNUTRITION In the context of Social/Environmental Circumstance based on: Insufficient Energy Intake: <75% for greater than or equal to 3 months NUTRITION CARE PLAN: Problem, Etiology and Signs/Symptoms: Suboptimal oral intake related to decreased appetite/ patient reports not hungry as evidenced by patient interview and unintentional weight loss Intervention: Advance diet as tolerated to Regular Monitor po and start supplement if po <50% meals Coordination of Care: Nursing Monitor and Evaluation: Goal: Meet >75% of estimated needs Monitor fluid/electrolyte balance Monitor labs, I/Os, vital signs, weight Discharge Nutrition Recommendations: Diet: Regular Chart reviewed for weight loss and poor po intake Per HPI: 66 yo male s/p stenting of left internal carotid artery Met with patient reports over the past 6 months a decline of ~20 lbs and not being hungry and not eating. ACTIVE PROBLEM LIST Malignant Neoplasm of Tonsil (Hcc) Dizziness and Giddiness Weight Loss Abdominal Pain, Unspecified Site Acute Gastritis Without Mention of Hemorrhage Hypothyroidism Malignant Neoplasm of Lingual Tonsil (Hcc) Depression Gerd (Gastroesophageal Reflux Disease) Vitamin D Deficiency Hyperlipidemia Hearing Loss Bppv (Benign Paroxysmal Positional Vertigo) Tonsillar Cancer (Hcc) Cad (Coronary Artery Disease) Carotid Stenosis Encounter for Screening Colonoscopy Diverticula of Colon Gastritis Irritation Around Percutaneous Endoscopic Gastrostomy (Peg) Tube Site (Hcc) Essential Hypertension, Benign Labile Blood Pressure Other Pain Disorders Related to Psychological Factors Adjustment Disorder With Mixed Anxiety and Depressed Mood Asthma, Moderate Persistent, Poorly-Controlled Arthritis Orthostatic Hypotension Copd With Chronic Bronchitis (Hcc) Hypertension Environmental Allergies Complication of Gastrostomy Tube (Hcc) Reflux Esophagitis Essential Hypertension Internal Carotid Artery Stenosis, Bilateral PAST MEDICAL HISTORY Diagnosis Date - BPH (benign prostatic hyperplasia) - CAD (coronary artery disease) - Carotid stenosis L>R - COPD (chronic obstructive pulmonary disease) (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) 02/2013 CABG x 4 - Orthostatic hypotension - Reflux esophagitis Confirmed by Ba swallow. - Seasonal allergies Dr. Espana. - Stroke (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 - Unspecified asthma(493.90) - Vertebral artery occlusion left - Vitamin D deficiency 2012 PAST SURGICAL HISTORY Procedure Laterality Date - APPENDECTOMY 1961 - CABG (4) VEIN GRAFTS AND ARTERIAL GRAFT(S) 02/26/13 - COLONOSCOP W/ OR W/O BRSH SPEC 09/15/13 few diverticula - 10 year follow up - COLONOSCOPY several - EGD W/O BRSH SPECIMEN W/BX 09/15/13 gastritis, gastric band in place, thin PEG site - EGD W/O OR W/BRUSH/WASH 03/28/2010 EGD - EGD W/O OR W/BRUSH/WASH 05/07/2017 EGD - HEART CATHETERIZATION 09/01/14 diffuse disease, no revascularizable target - HEART SURGERY HX - KIDNEY SURGERY HX - PAST SURGICAL HISTORY OF ~1977 kidney stones - PAST SURGICAL HISTORY OF 1976 intestinal bypass - PAST SURGICAL HISTORY OF ~1977 partial intestinal bypass reversal - PAST SURGICAL HISTORY OF 1994 gastric banding - PAST SURGICAL HISTORY OF 01/18/2005 throat cancer - PEG TUBE 03/20/2005 removed after 1 1/2y - REMOVAL GALLBLADDER ~1977 - XRAY CHEST 1 VIEW 06/06/15 hyperinflation and scarring Present Diet Order: Regular Enteral Access: None Nutritional Intake Prior to Admission: >75% estimated energy needs over the past 6 month(s), due to not being hungry GI symptoms: none Abdominal Exam: not assessed Is the patient having any pain that is interfering with oral/enteral intake? No ANTHROPOMETRICS Height: 185.4 cm (6' 1) Admission Weight: 90.7 kg (200 lb) Current Weight: 90.7 kg (200 lb) Body mass index is 26.39 kg/(m2). overweight Weight is stable over 3 months. Weight has decreased by 10 kg over 12 months representing 9.9 % weight change. NOT clinically significant Last Wt 11/08/17 : 90.7 kg (200 lb) 09/30/17 : 92.5 kg (204 lb) 09/18/17 : 91.5 kg (201 lb 12.8 oz) 09/05/17 : 92.1 kg (203 lb) 08/23/17 : 90.7 kg (200 lb) - 3 months ago 07/12/17 : 87.1 kg (192 lb) 07/05/17 : 87.3 kg (192 lb 6.4 oz) 07/01/17 : 88.5 kg (195 lb) 06/07/17 : 90.5 kg (199 lb 9.6 oz) 05/20/17 : 92.5 kg (204 lb) 05/07/17 : 89.9 kg (198 lb 3.1 oz) - 6 months ago 04/22/17 : 89.8 kg (198 lb) 04/16/17 : 91.2 kg (201 lb) 03/13/17 : 95.3 kg (210 lb) 02/25/17 : 96.2 kg (212 lb) 02/14/17 : 98 kg (216 lb) 02/08/17 : 95.3 kg (210 lb 3.2 oz) 01/09/17 : 95.3 kg (210 lb) 12/28/16 : 93.4 kg (206 lb) 11/08/16 : 100.7 kg (222 lb) - 12 months ago [place] Body Weight: 83.6kg Resting Metabolic Rate: 1755 Estimated kilocalorie needs: 9754-8054 kilocalories determined by 25-30 kcal/kg ideal body weight Estimated protein needs: 92-125 grams determined by 1.1-1.5 g/kg [place] weight Estimated fluid needs: 1614-0989 milliliters based on 1 mL per kcal NUTRITION FOCUSED PHYSICAL EXAM: Subcutaneous Fat Loss Orbital No fat loss Triceps No fat loss Mid-axillary at the iliac crest No fat loss Muscle Loss Locations: Temporalis No muscle loss Pectoralis No muscle loss Deltoids No muscle loss Interosseous No muscle loss Latissimus dorsi, trapezius No muscle loss Quadriceps No muscle loss Gastrocnemius No muscle loss Potential micronutrient deficiency revealed in: Hair - thin Mucous Membranes - dry and white film in mouth Tongue - white film Teeth - dentures Edema: No Ascites: No Assessment of Functional Status: No functional impairment, normal with no limitations Temperature Max in 24 hours: Temp (24hrs), Av ?C (96.8 ?F), Min:36 ?C (96.8 ?F), Max:36 ?C (96.8 ?F) BP 134/116 Pulse 79 Temp 36 ?C (96.8 ?F) Resp 17 Ht 185.4 cm (6' 1) Wt 90.7 kg (200 lb) SpO2 98% BMI 26.39 kg/m2 Recent Labs 11/06/17 0926 GLUC 112* BUN 17 CREAT 1.41* NA 142 K 4.1 CHLOR 101 CO2 27 Potential Signs of Inflammation: hyperglycemia ALLERGIES Allergen Reactions - Floxin [Ofloxacin] Mental Status Change Severe depression. - Flagyl [Metronidazo* Mental Status Change Depression. - Ciprofloxacin Diarrhea, Unknown ? diarrhea. - Morphine Mental Status Change Current Facility-Administered Medications: dextrose 5% in NaCl 0.9% iv infusion 100 mL/hr INTRAVENOUS CONTINUOUS clopidogrel 75 mg tab(s) (PLAVIX) 75 mg ORAL DAILY enoxaparin 40 mg injection (LOVENOX) 40 mg SUBCUTANEOUS DAILY nitroglycerin 100 mg in D5W 250 mL 10 mcg/min INTRAVENOUS CONTINUOUS aspirin 81 mg tab(s) 81 mg ORAL DAILY meclizine 12.5 mg tab(s) (ANTIVERT) 12.5 mg ORAL BID albuterol HFA 90 mcg/actuation 2 Puff (PROVENTIL HFA, VENTOLIN HFA) 2 Puff INHALATION q 4 H PRN guaiFENesin 1,200 mg ER tab(s) (MUCINEX) 1,200 mg ORAL DAILY multivitamin with folic acid 1 tablet (THERA, ONE DAILY) 1 tablet ORAL DAILY sertraline 50 mg tab(s) (ZOLOFT) 50 mg ORAL DAILY levothyroxine 75 mcg tab(s) (SYNTHROID) 75 mcg ORAL DAILY famotidine 20 mg tab(s) (PEPCID) 20 mg ORAL BID ondansetron (PF) 4 mg injection (ZOFRAN) 4 mg INTRAVENOUS q 6 H PRN acetaminophen 650 mg tab(s) (TYLENOL) 650 mg ORAL q 4 H PRN MNT Billing Type: Initial Assess/15 min 4 units SIGNATURE: Neela Valera RD, LD PATIENT NAME: Shayan Culver DATE: November 08, 2017 TIME: 2:29 PM PAGER: [phone] CAROTID CEREBRAL Observed: 11/08/2017 Status: F Source: [facility] [id number] 1:15 PM HEALTH SYSTEM REPOSITORY Performed at [facility] APPROVED BY: LUTHER NIETO MD EXAM TITLE: AORTIC ARCH ARTERIOGRAM WITH SELECTIVE LEFT CAROTID ARTERIOGRAM; STENTING OF LEFT INTERNAL CAROTID ARTERY UTILIZING 8MM BY 29 MM WALL STENT AND INTRAPROCEDURE CEREBRAL PROTECTION; CLOSURE OF ARTERIAL PUNCTURE WITH STAR CLOSE DEVICE DATE:11/08/2017 08:13 CLINICAL INDICATION/HISTORY: Patient with a history of both radical neck surgery and neck irradiation in the past he now has 90% stenosis of the internal carotid arteries bilaterally with some global sy mptomatology. He has also had some hemispheric symptomatology on both sides with some arm and hand numbness. He presents now for stenting of the internal carotid artery on the left with staged procedu re on the right planned. As on his previous trip to the hospital he is noted here to be severely hypertensive preoperatively even with preoperative sedation and therefore an arterial line was placed an d blood pressure was controlled with a nitroglycerin drip during the performance of the procedure. TECHNIQUE: All elements of maximal barrier technique including cap and mask, sterile gown, sterile gloves, a large sterile drape, hand hygiene and appropriate prep agent for cutaneous antisepsis were ut ilized and maintained during the procedure. Micropuncture access was obtained utilizing ultrasound guidance of the right common femoral artery. Once access was obtained we went ahead and passed a micropuncture wire with a micropuncture sheath an d dilator passed over this. We then passed a Bentson wire up and a diagnostic sheath was placed. Once the Bentson wire was passed proximally we then passed a pigtail catheter into the proximal aortic arch. Aortic arch arteriogram was performed which delineated the origins of the innominate artery the left common carotid artery and the subclavian arteries. Evidence of tight stenosis was present at the level of the internal carotid artery on the left. At this point in time easing examination of glide catheter and Glidewire we cannulated the left common carotid artery and pass the catheter up and into the carotid artery on the left. Diagnostic left a rteriogram was performed for measurement purposes and a severe 95% stenosis of the midportion of the internal carotid artery was noted. At this point in time we went ahead and proceeded to pass our wir e up and into the external carotid artery and with the tad wire in this position we went ahead and performed placement of a shuttle sheath into the proximal common carotid artery and advancing it into t he distal common carotid artery. Once the shuttle sheath was then placed we used a combination of glide catheter and the introducer catheter for the filter wire. At this point in time we went ahead an d passed the filter wire up and into the internal carotid artery. The filter wire initially was flow occlusive and therefore we immediately passed up a 3 mm x 2 mm coyote balloon and performed prestent angioplasty. This allowed to flow to be restored into the internal carotid artery after the angioplasty had been performed. Now with the wire in good position and the filter opened we went ahead and passed the Wallstent up and into the internal carotid artery. At this point in time the stent was opened and it opened well and seated well in the internal carotid artery. We had good flow through the internal carotid artery and a post stent dilation was performed with a 4 mm x 20 mm Bellwood balloon. Upon completion of this we had excellent flow there was good flow still through the distally placed stent filter. Now the filter was recaptured and removed. Completion arteriography was performed and compared to preangioplasty cerebral arteriography. There was no evidence of any embolization noted on pre and post cerebral arteriography. There was no evidence of any problems at the site of the stent. The sheath was removed at this point in time. A wire was left in place and then over the wire o f the*close device was passed and deployed. Skin exit site pressure was also held for 15 minutes with no evidence of bleeding. The patient had been heparinized during the procedure and a CTs were note d to be greater than 300 during performance of the procedure this was allowed to drift down but was not reversed. The patient also received Plavix during the performance of the procedure. The patient was neurologically intact upon completion of the procedure. This procedure was performed by Drs. Luther Nieto M.D. and Sayda Patrick M.D. FINDINGS: As above IMPRESSION: Normal aortic arch anatomy. Severe 95% stenosis of left internal carotid artery. Successful stenting of the internal carotid artery stenosis on the left utilizing 8mm by 29 mm wall stent and filter wi re. Successful post stent angioplasty using 4 mm x 20 mm coyote balloon. No evidence of intracerebral embolization on pre and post cerebral angiography. Successful closure of puncture site utilizing star close device CAROTID CEREBRAL Observed: 11/08/2017 Status: F Source: [facility] [id number] 1:15 PM HEALTH SYSTEM REPOSITORY Performed at [facility] APPROVED BY: LUTHER NIETO MD EXAM TITLE: AORTIC ARCH ARTERIOGRAM WITH SELECTIVE LEFT CAROTID ARTERIOGRAM; STENTING OF LEFT INTERNAL CAROTID ARTERY UTILIZING 8MM BY 29 MM WALL STENT AND INTRAPROCEDURE CEREBRAL PROTECTION; CLOSURE OF ARTERIAL PUNCTURE WITH STAR CLOSE DEVICE DATE:11/08/2017 08:13 CLINICAL INDICATION/HISTORY: Patient with a history of both radical neck surgery and neck irradiation in the past he now has 90% stenosis of the internal carotid arteries bilaterally with some global sy mptomatology. He has also had some hemispheric symptomatology on both sides with some arm and hand numbness. He presents now for stenting of the internal carotid artery on the left with staged procedu re on the right planned. As on his previous trip to the hospital he is noted here to be severely hypertensive preoperatively even with preoperative sedation and therefore an arterial line was placed an d blood pressure was controlled with a nitroglycerin drip during the performance of the procedure. TECHNIQUE: All elements of maximal barrier technique including cap and mask, sterile gown, sterile gloves, a large sterile drape, hand hygiene and appropriate prep agent for cutaneous antisepsis were ut ilized and maintained during the procedure. Micropuncture access was obtained utilizing ultrasound guidance of the right common femoral artery. Once access was obtained we went ahead and passed a micropuncture wire with a micropuncture sheath an d dilator passed over this. We then passed a Bentson wire up and a diagnostic sheath was placed. Once the Bentson wire was passed proximally we then passed a pigtail catheter into the proximal aortic arch. Aortic arch arteriogram was performed which delineated the origins of the innominate artery the left common carotid artery and the subclavian arteries. Evidence of tight stenosis was present at the level of the internal carotid artery on the left. At this point in time easing examination of glide catheter and Glidewire we cannulated the left common carotid artery and pass the catheter up and into the carotid artery on the left. Diagnostic left a rteriogram was performed for measurement purposes and a severe 95% stenosis of the midportion of the internal carotid artery was noted. At this point in time we went ahead and proceeded to pass our wir e up and into the external carotid artery and with the tad wire in this position we went ahead and performed placement of a shuttle sheath into the proximal common carotid artery and advancing it into t he distal common carotid artery. Once the shuttle sheath was then placed we used a combination of glide catheter and the introducer catheter for the filter wire. At this point in time we went ahead an d passed the filter wire up and into the internal carotid artery. The filter wire initially was flow occlusive and therefore we immediately passed up a 3 mm x 2 mm coyote balloon and performed prestent angioplasty. This allowed to flow to be restored into the internal carotid artery after the angioplasty had been performed. Now with the wire in good position and the filter opened we went ahead and passed the Wallstent up and into the internal carotid artery. At this point in time the stent was opened and it opened well and seated well in the internal carotid artery. We had good flow through the internal carotid artery and a post stent dilation was performed with a 4 mm x 20 mm Bellwood balloon. Upon completion of this we had excellent flow there was good flow still through the distally placed stent filter. Now the filter was recaptured and removed. Completion arteriography was performed and compared to preangioplasty cerebral arteriography. There was no evidence of any embolization noted on pre and post cerebral arteriography. There was no evidence of any problems at the site of the stent. The sheath was removed at this point in time. A wire was left in place and then over the wire o f the*close device was passed and deployed. Skin exit site pressure was also held for 15 minutes with no evidence of bleeding. The patient had been heparinized during the procedure and a CTs were note d to be greater than 300 during performance of the procedure this was allowed to drift down but was not reversed. The patient also received Plavix during the performance of the procedure. The patient was neurologically intact upon completion of the procedure. This procedure was performed by Drs. Luther Nieto M.D. and Sayda Patrick M.D. FINDINGS: As above IMPRESSION: Normal aortic arch anatomy. Severe 95% stenosis of left internal carotid artery. Successful stenting of the internal carotid artery stenosis on the left utilizing 8mm by 29 mm wall stent and filter wi re. Successful post stent angioplasty using 4 mm x 20 mm coyote balloon. No evidence of intracerebral embolization on pre and post cerebral angiography. Successful closure of puncture site utilizing star close device CAROTID STENT [facility] Observed: 11/08/2017 Status: F Source: [facility] WITH EMB PROT 1:15 PM HEALTH SYSTEM [id number] REPOSITORY Performed at [facility] APPROVED BY: LUTHER NIETO MD EXAM TITLE: AORTIC ARCH ARTERIOGRAM WITH SELECTIVE LEFT CAROTID ARTERIOGRAM; STENTING OF LEFT INTERNAL CAROTID ARTERY UTILIZING 8MM BY 29 MM WALL STENT AND INTRAPROCEDURE CEREBRAL PROTECTION; CLOSURE OF ARTERIAL PUNCTURE WITH STAR CLOSE DEVICE DATE:11/08/2017 08:13 CLINICAL INDICATION/HISTORY: Patient with a history of both radical neck surgery and neck irradiation in the past he now has 90% stenosis of the internal carotid arteries bilaterally with some global sy mptomatology. He has also had some hemispheric symptomatology on both sides with some arm and hand numbness. He presents now for stenting of the internal carotid artery on the left with staged procedu re on the right planned. As on his previous trip to the hospital he is noted here to be severely hypertensive preoperatively even with preoperative sedation and therefore an arterial line was placed an d blood pressure was controlled with a nitroglycerin drip during the performance of the procedure. TECHNIQUE: All elements of maximal barrier technique including cap and mask, sterile gown, sterile gloves, a large sterile drape, hand hygiene and appropriate prep agent for cutaneous antisepsis were ut ilized and maintained during the procedure. Micropuncture access was obtained utilizing ultrasound guidance of the right common femoral artery. Once access was obtained we went ahead and passed a micropuncture wire with a micropuncture sheath an d dilator passed over this. We then passed a Bentson wire up and a diagnostic sheath was placed. Once the Bentson wire was passed proximally we then passed a pigtail catheter into the proximal aortic arch. Aortic arch arteriogram was performed which delineated the origins of the innominate artery the left common carotid artery and the subclavian arteries. Evidence of tight stenosis was present at the level of the internal carotid artery on the left. At this point in time easing examination of glide catheter and Glidewire we cannulated the left common carotid artery and pass the catheter up and into the carotid artery on the left. Diagnostic left a rteriogram was performed for measurement purposes and a severe 95% stenosis of the midportion of the internal carotid artery was noted. At this point in time we went ahead and proceeded to pass our wir e up and into the external carotid artery and with the tad wire in this position we went ahead and performed placement of a shuttle sheath into the proximal common carotid artery and advancing it into t he distal common carotid artery. Once the shuttle sheath was then placed we used a combination of glide catheter and the introducer catheter for the filter wire. At this point in time we went ahead an d passed the filter wire up and into the internal carotid artery. The filter wire initially was flow occlusive and therefore we immediately passed up a 3 mm x 2 mm coyote balloon and performed prestent angioplasty. This allowed to flow to be restored into the internal carotid artery after the angioplasty had been performed. Now with the wire in good position and the filter opened we went ahead and passed the Wallstent up and into the internal carotid artery. At this point in time the stent was opened and it opened well and seated well in the internal carotid artery. We had good flow through the internal carotid artery and a post stent dilation was performed with a 4 mm x 20 mm Bellwood balloon. Upon completion of this we had excellent flow there was good flow still through the distally placed stent filter. Now the filter was recaptured and removed. Completion arteriography was performed and compared to preangioplasty cerebral arteriography. There was no evidence of any embolization noted on pre and post cerebral arteriography. There was no evidence of any problems at the site of the stent. The sheath was removed at this point in time. A wire was left in place and then over the wire o f the*close device was passed and deployed. Skin exit site pressure was also held for 15 minutes with no evidence of bleeding. The patient had been heparinized during the procedure and a CTs were note d to be greater than 300 during performance of the procedure this was allowed to drift down but was not reversed. The patient also received Plavix during the performance of the procedure. The patient was neurologically intact upon completion of the procedure. This procedure was performed by Drs. Luther Nieto M.D. and Sayda Patrick M.D. FINDINGS: As above IMPRESSION: Normal aortic arch anatomy. Severe 95% stenosis of left internal carotid artery. Successful stenting of the internal carotid artery stenosis on the left utilizing 8mm by 29 mm wall stent and filter wi re. Successful post stent angioplasty using 4 mm x 20 mm coyote balloon. No evidence of intracerebral embolization on pre and post cerebral angiography. Successful closure of puncture site utilizing star close device BRIEF OP NOT Observed: 11/08/2017 Status: COMPLETED Source: [place] 12:30 PM [facility]AMP[facility] REPOSITORY HNO ID: [id number] Author: Luther Nieto Service: Vascular Surgery Author Type: Physician Type: Brief Op Note Filed: 11/08/2017 12:33 PM Note Text: VASCULAR SURGERY POST PROCEDURE NOTE DATE: 11/08/17 NAME: Shayan Culver LOG ID: [id number] Pre-Procedure Diagnosis: Severe bilateral carotid stenosis, symptomatic,post neck radiation Post Procedure Diagnosis: Same. Career Coordinator: Dr. Luther Nieto (Primary) Procedure: Other (specify) - Aortic arch and selective left carotid arteriogram, stenting left internal carotid artery with 8mm stent utilizing cerebral protection Anesthesia: Procedural Sedation Findings: successful L ICA stenting with good result Estimated Blood Loss: Minimal (Less Than 25 mL). 100 mls Specimen: None. Complications: None. Full report with procedural details to follow and will become available under Imaging Reports. Please contact for any questions or concerns. Luther Nieto MD Vascular Surgery Beeper [phone] ACT Collected: 11/08/2017 Status: F Source: [facility] 12:07 PM HEALTH SYSTEM REPOSITORY TYPE CODE TESTS RESULT OUT OF RANGE REFERENCE UNITS LAB ACT(LOINC) 89-169 sec High ACT 285 Performed By: #### ACT #### [place] [address] ACT Collected: 11/08/2017 Status: F Source: [facility] 11:40 AM HEALTH SYSTEM REPOSITORY TYPE CODE TESTS RESULT OUT OF RANGE REFERENCE UNITS LAB ACT(LOINC) 89-169 sec High ACT 300 Performed By: #### ACT #### [address] [place], [place] [address] ACT Collected: 11/08/2017 Status: F Source: [facility] 11:15 AM HEALTH SYSTEM REPOSITORY TYPE CODE TESTS RESULT OUT OF RANGE REFERENCE UNITS LAB ACT(LOINC) 89-169 sec High ACT 345 Performed By: #### ACT #### [facility] [address] [place], [place] [address] ACT Collected: 11/08/2017 Status: F Source: [facility] 11:05 AM HEALTH SYSTEM REPOSITORY TYPE CODE TESTS RESULT OUT OF RANGE REFERENCE UNITS LAB ACT(LOINC) 89-169 sec ACT 131 Performed By: #### ACT #### [facility] [address] [place] [address] NURSING PROG Observed: 11/08/2017 Status: COMPLETED Source: [place] 8:54 AM [facility] REPOSITORY HNO ID: [id number] Author: Laura (Rn) CLINTON Price Service: (none) Author Type: Registered Nurse Type: Nursing Progress Note Filed: 11/08/2017 9:08 AM Note Text: 0855 PT admitted to [facility], Pre procedure teaching at bedside. Review of medications and moderate sedation teaching. 0907 dr nieto requesting the Patient at this time. 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 PROTIME Collected: 11/06/2017 Status: F Source: [place] 9:26 AM [facility] REPOSITORY TYPE CODE TESTS RESULT OUT OF RANGE REFERENCE UNITS LAB PSEC 9.7-13.0 sec PT Sec 9.9 LAB INR 0.9-1.3 PT INR 1.0 Result Comment: Vitamin K Antagonist (VKA) Therapeutic Range: INR 2 to 3 (Target INR of 2.5) Note: For patients treated with VKA drugs, such as warfarin, the [place] [employer] 2012 Guideline recommends a therapeutic INR range of 2 to 3 (target INR of 2.5). This recommendation includes high-risk patients with antiphospholipid syndrome with previous arterial or venous thromboembolism, current-generation mechanical or bioprosthetic aortic heart valve replacement. Note: Patients with mechanical aortic valve replacement and additional risk factors for thromboembolic events (atrial fibrillation, previous thromboembolism, LV dysfunction, hypercoagulable conditions) or an older generation mechanical AVR (i.e., ball in-Cage) or any mechanical MVR should have a INR therapeutic range of 2.5 to 3.5 (target INR of 3). Yeni GH, et al. Chest 2012, 141:7S-47S Kendra RA, et al. [facility] 2017, 70: [phone] Performed By: #### PT, BMP #### [facility] [address] [place], [place] [address] BASIC METABOLIC PANL Collected: 11/06/2017 Status: F Source: [place] 9:26 AM [facility] REPOSITORY TYPE CODE TESTS RESULT OUT OF REFERENCE UNITS RANGE LAB GLU 74-99 mg/dL High Glucose 112 Result Comment: The [place] [employer] Association (ADA) provides guidance for cutoff values for fasting glucose and random glucose. The ADA defines fasting as no caloric intake for at least 8 hours. Fas ting plasma glucose results between 100 to 125 mg/dL indicate increased risk for diabetes (prediabetes). Fasting plasma glucose results greater than or equal to 126 mg/dL meet the criteria for diagnosis of diabetes. In the absence of unequivocal hyperglycemia, results should be confirmed by repeat testing. In a patient with classic symptoms of hyperglycemia or hyperglycemic crisis, random plasma glucose results greater than or equal to 200 mg/dL meet the criteria for diagnosis of diabetes. Reference: Standards of Medical Care in Diabetes 2016, [place] [employer]. Diabetes Care. 2016.39(Suppl 1). LAB BUN 9-24 mg/dL BUN 17 LAB CRET 0.73-1.22 mg/dL Creatinine High 1.41 LAB NA 136-144 mmol/L Sodium 142 LAB K 3.7-5.1 mmol/L Potassium 4.1 LAB CL 97-105 mmol/L Chloride 101 LAB CO2 22-30 mmol/L CO2 27 LAB AGAP 9-18 mmol/L Anion Gap 14 LAB CA 8.5-10.2 mg/dL Calcium, Total 9.5 LAB GFRAA eGFR- Amer. >60 LAB GFRNAA . eGFR-All Other Races 51 Result Comment: eGFR (Estimated GFR) Units of measure: mL/min/1.73 meters squared eGFR is derived from the reexpressed MDRD Study equation using the following parameters: serum creatinine, age, gender and race. The creatinine assay has been calibrated to be traceable to IDMS. An eGFR <60 mL/min/1.73m2 for >3 months is consistent with chronic kidney disease. Refer to KDOQI guidelines for clinical interpretation. In patients with unstable renal function, e.g. those with acute kidney injury, the eGFR may not accurately reflect actual GFR. Performed By: #### PT, BMP #### [facility] [address] [place], [place] [address] CNPTOUTREACH Observed: 10/29/2017 Status: COMPLETED Source: [place] 12:00 AM [facility] REPOSITORY Patient Outreach ([facility]) SHAYAN CULVER ([id number]) 1950 M Date Time Provider Department 10/29/17 [facility] During your visit today, we recorded the following information about you: Allergies As of Date: 10/29/2017 Noted Allergy Reaction FLOXIN (OFLOXACIN) 10/09/2005 1 - Mental Status Change Comments: Severe depression. FLAGYL (METRONIDAZOLE HCL) 01/15/2005 1 - Mental Status Change Comments: Depression. CIPROFLOXACIN 02/16/2013 6 - Diarrhea 16 - Unknown Comments: ? diarrhea. MORPHINE 12/28/2016 1 - Mental Status Change Date Reviewed: 09/30/2017 Reviewed by: Digna Hubbard LPN - Fully Assessed Visit Diagnosis:Medication management [Z79.899] Order(s):LIPID PANEL BASIC [SQLIPB] Order #: [id number] FUTURE Prescriptions as of 10/29/2017 Sig: X DIAZEPAM 5 MG TABLET Take 4 mg by mouth every 6 ho* CLOPIDOGREL 75 MG TABLET Take 1 tablet by mouth once d* X ETODOLAC 300 MG CAPSULE Take 1 capsule by mouth every* X RANITIDINE 150 MG TABLET Take 1 tablet by mouth twice * X NEXIUM 24HR 20 MG CAPSULE,DEL* TAKE TWO CAPSULES BY MOUTH ON* GUAIFENESIN ER 1,200 MG TABLE* Take 1 tablet by mouth once d* X ALBUTEROL SULFATE HFA 90 MCG/* Inhale 2 Puffs as instructed * X FLUTICASONE 50 MCG/ACTUATION * Use 1 New Century in each nostril d* X PROCHLORPERAZINE MALEATE 5 MG* Take 1 tablet by mouth every * MECLIZINE 12.5 MG TABLET Take 1 tablet by mouth twice * LEVOTHYROXINE 75 MCG TABLET Take 1 tablet by mouth once d* SERTRALINE 100 MG TABLET Take 0.5 tablets by mouth twi* X BENZONATATE 200 MG CAPSULE Take 200 mg by mouth three ti* X ATORVASTATIN 20 MG TABLET Take 1 tablet by mouth once d* ASPIRIN 325 MG TABLET Take 81 mg by mouth once genaro* POTASSIUM CHLORIDE ER 10 MEQ * Take 1 tablet by mouth daily * MULTIVITAMIN TABLET Take one(1) tablet daily. Problem List As Of Date 10/29/2017 Noted Resolved MALIGNANT NEOPL TONSIL [C09.9] INVALID FOR* DIZZINESS AND GIDDINESS [R42] INVALID FOR* More... 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 Depression [F32.9] INVALID FOR* More... GERD (gastroesophageal reflux disease) [K21.9] INVALID FOR* More... Vitamin d deficiency [E55.9] Hyperlipidemia [E78.5] More... Hearing loss [H91.90] INVALID FOR* BPPV (benign paroxysmal positional vertigo) [H8*INVALID FOR* Tonsillar cancer [C09.9] INVALID FOR* CAD (coronary artery disease) [I25.10] More... Carotid stenosis [I65.29] More... Encounter for screening colonoscopy [Z12.11] INVALID FOR* Diverticula of colon [K57.30] INVALID FOR* Gastritis [K29.70] INVALID FOR* Irritation around percutaneous endoscopic gastr*INVALID FOR* Essential hypertension, benign [I10] More... Labile blood pressure [R09.89] INVALID FOR* Other pain disorders related to psychological f*INVALID FOR* Adjustment disorder with mixed anxiety and depr*INVALID FOR* Asthma, moderate persistent, poorly-controlled * Arthritis [M19.90] INVALID FOR* More... Orthostatic hypotension [I95.1] INVALID FOR* More... COPD with chronic bronchitis (HCC) [J44.9] INVALID FOR* More... Hypertension [I10] INVALID FOR* More... Environmental allergies [Z91.09] INVALID FOR* More... Complication of gastrostomy tube (HCC) [K94.20] INVALID FOR* Reflux esophagitis [K21.0] More... Essential hypertension [I10] INVALID FOR* Encounter Status:Closed by EPIC, PRODUSER on 05/16/18 CBC AND DIFFERENTIAL Collected: 10/17/2017 Status: F Source: [place] 2:37 PM [facility] REPOSITORY TYPE CODE TESTS RESULT OUT OF REFERENCE UNITS RANGE LAB WBC 3.70-11.00 k/uL WBC 9.05 LAB RBC 4.20-6.00 m/uL RBC 4.60 LAB HGB 13.0-17.0 g/dL Hemoglobin 14.8 LAB HCT 39.0-51.0 % Hematocrit 46.0 LAB MCV 80.0-100.0 fL MCV 100.0 LAB MCH 26.0-34.0 pG MCH 32.2 LAB MCHC 30.5-36.0 g/dL MCHC 32.2 LAB RDWCV 11.5-15.0 % RDW-CV 13.5 LAB PLTCT 150-400 k/uL Platelet Count 209 LAB MPV 9.0-12.7 fL MPV 10.6 LAB ANEUT % Neut% 80.1 LAB AANEUT 1.45-7.50 k/uL Abs Neut 7.25 LAB ALYMP % Lymph% 11.7 LAB AALYMP 1.00-4.00 k/uL Abs Lymph 1.06 LAB AMONO % [place]% 7.0 LAB AAMONO <0.87 k/uL Abs [place] 0.63 LAB AEOS % Eosin% 0.3 LAB AAEOS <0.46 k/uL Abs Eosin 0.03 LAB ABASO % Baso% 0.9 LAB AABASO <0.11 k/uL Abs Baso 0.08 LAB AUNRBC 0 /100 WBC NRBCs 0.0 LAB ABNRBC <0.01 k/uL Absolute nRBC <0.01 LAB DTYP DTYPE Auto Diff Performed By: #### CBCDIF, FT4, T3, TSH, VITD #### [facility] [address] [id number] FREE T4 Collected: 10/17/2017 Status: F Source: [place] 2:37 PM [facility] [place] REPOSITORY TYPE CODE TESTS RESULT OUT OF RANGE REFERENCE UNITS LAB FT4 0.9-1.7 ng/dL Low Free T4 0.7 Performed By: #### CBCDIF, FT4, T3, TSH, VITD #### [place] [address] T3 Collected: 10/17/2017 Status: F Source: [facility] 2:37 PM MAIN CAMPUS REPOSITORY TYPE CODE TESTS RESULT OUT OF RANGE REFERENCE UNITS LAB T3 79-165 ng/dL T3 90 Performed By: #### CBCDIF, FT4, T3, TSH, VITD #### [place] [address] TSH Collected: 10/17/2017 Status: F Source: [place] 2:37 PM [facility] [place] REPOSITORY TYPE CODE TESTS RESULT OUT OF RANGE REFERENCE UNITS LAB TSH 0.400-5.500 uU/mL TSH 2.140 Performed By: #### CBCDIF, FT4, T3, TSH, VITD #### [place] [address] VITAMIN D 25 HYDROXY Collected: 10/17/2017 Status: F Source: [place] 2:37 PM [facility] [place] REPOSITORY TYPE CODE TESTS RESULT OUT OF REFERENCE UNITS RANGE LAB VITD 31.0-80.0 ng/mL Vitamin D 25 34.8 Hydroxy Result Comment: Classification of 25 OH Vitamin D status: Insufficiency/Moderate Deficiency: < or = 30 ng/mL Sufficiency/Optimal Levels: 31 to 80 ng/mL Toxicity: > 100 ng/mL Test performed by chemiluminescent immunoassay. Performed By: #### CBCDIF, FT4, T3, TSH, VITD #### [place] [address] HOSP Observed: 10/17/2017 Status: COMPLETED Source: [place] 12:00 AM CLINIC OTHER CAMPUS REPOSITORY Patient:Shayan Culver MRN: <[id number]> Height:6' 1(1.854 m) Weight:200 lb (90.719 kg) Outpatient Medications as of 11/08/17: diazePAM (VALIUM) 5 mg tablet clopidogrel (PLAVIX) 75 mg tablet ranitidine (ZANTAC) 150 mg tablet NEXIUM 24HR 20 mg capsule albuterol HFA (VENTOLIN HFA) 90 mcg/actuation inhaler fluticasone (FLONASE) 50 mcg/actuation nasal spray guaiFENesin (MUCINEX) 1,200 mg Ta12 meclizine (ANTIVERT) 12.5 mg tab levothyroxine (SYNTHROID) 75 mcg tablet sertraline (ZOLOFT) 100 mg tablet atorvastatin (LIPITOR) 20 mg tablet aspirin 325 mg tablet potassium chloride (K-TAB) 10 mEq tablet MULTIVITAMIN TAB Admission/Clinic Administered Medications as of 11/08/17: Patient has no admission medications. 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] Depression [F32.9] GERD (gastroesophageal reflux disease) [K21.9] Vitamin D deficiency [E55.9] Hyperlipidemia [E78.5] Hearing loss [H91.90] BPPV (benign paroxysmal positional vertigo) [H81.10] Tonsillar cancer (HCC) [C09.9] CAD (coronary artery disease) [I25.10] Carotid stenosis [I65.29] Encounter for screening colonoscopy [Z12.11] Diverticula of colon [K57.30] Gastritis [K29.70] Irritation around percutaneous endoscopic gastrostomy (PEG) tube site (HCC) [K94.29] Essential hypertension, benign [I10] Labile blood pressure [R09.89] Other pain disorders related to psychological factors [F45.42] Adjustment disorder with mixed anxiety and depressed mood [F43.23] Asthma, moderate persistent, poorly-controlled [J45.40] Arthritis [M19.90] Orthostatic hypotension [I95.1] COPD with chronic bronchitis (HCC) [J44.9] Hypertension [I10] Environmental allergies [Z91.09] Complication of gastrostomy tube (HCC) [K94.20] Reflux esophagitis [K21.0] Essential hypertension [I10] Allergies: Floxin [Ofloxacin] Flagyl [Metronidazole Hcl] Ciprofloxacin Morphine Date Verified: 11/08/17 Lab Values Lab Value Units Date High Low POTA* 4.1 mmol/L 11/06/2017 5.1 3.7 FERCHO* 46.0 % 10/17/2017 51.0 39.0 Progress Notes ([facility]): Ignacia Glass LPN 10/22/2017 10:05 AM Signed Patient has been identified by name and date of : Yes Patient phones for refill(s): Pending Prescriptions Disp Refills CLOPIDOGREL 75 MG TABLET 90 tablet 3 Sig: Take 1 tablet by mouth once daily. KILO: No Date of last office visit in primary care: 09/18/2017 Last 2 Encounter Wt Readings: Date: Wt: 09/30/2017 92.5 kg (204 lb) 09/18/2017 91.5 kg (201 lb 12.8 oz) Previous labs/tests for medication: Blood Counts: WBC (k/uL) Date Value 10/17/2017 9.05 RBC (m/uL) Date Value 10/17/2017 4.60 Hematocrit (%) Date Value 10/17/2017 46.0 Hemoglobin (g/dL) Date Value 10/17/2017 14.8 Platelet Count (k/uL) Date Value 10/17/2017 209 Please advise. Thank you. Ignacia Casas LPN 10/22/2017 1:12 PM Signed The following approved medication requests have been transmitted electronically. Signed Prescriptions Disp Refills clopidogrel (PLAVIX) 75 mg tablet 90 tablet 3 Sig: Take 1 tablet by mouth once daily. KILO: No Authorizing Provider: LAURA GROVE LPN Progress Notes ([facility]): Yolie Jeronimo [employer] [facility] [place]/15/2017 11:41 AM Signed Patient needs ergocalciferol, vitamin D2, (DRISDOL) 50,000 unit capsule Patient has been identified by name and date of : Yes RX INSTRUCTIONS: Patient aware RX will be sent to pharmacy. No need to notify patient. Yolie Jeronimo PSR Frankie Harris 10/16/2017 3:28 PM Signed Patient has been identified by name and date of : Yes Patient phones for refill(s): No medications selected for refill. Date of last office visit in primary care: 09/18/17 w/pcp; next 11/12/17 Med was d/c 02/25/17 states not taking Last 2 Encounter Wt Readings: Date: Wt: 09/30/2017 92.5 kg (204 lb) 09/18/2017 91.5 kg (201 lb 12.8 oz) Previous labs/tests for medication: Vit D 2014 Please advise. Thank you. Frankie Ninacat LAURA GROVE MD 10/16/2017 3:48 PM Signed Please let him know that that he has labs ordered including the vitd We can decide if it is appropriate to fill depending on that [employer] WHEELER 10/16/2017 4:09 PM Signed Pt notified. PROGRESS Observed: 09/30/2017 Status: COMPLETED Source: [place] 3:44 PM [facility] [place] REPOSITORY HNO ID: [id number] Author: Marilyn Zheng ([place]) CLARA Angel Service: (none) Author Type: Nurse Practitioner Type: Progress Notes Filed: 09/30/2017 3:48 PM Note Text: Subjective HPI Patient presents with: Knee Pain: right knee pain after falling yesterday directly on knee on hard surface. Denies any otc treatment for symptoms. Review of Systems Musculoskeletal: Positive for joint pain (right knee injury yesterday after falling on it). PAST MEDICAL HISTORY Diagnosis Date - BPH (benign prostatic hyperplasia) - CAD (coronary artery disease) - Carotid stenosis L>R - COPD (chronic obstructive pulmonary disease) ([facility]) - Essential hypertension, benign Labile hyper and hypotensive - GERD (gastroesophageal reflux disease) 2012 - History of gastric bypass - Hyperlipidemia - Hypothyroidism - Major depressive disorder, single episode, moderate (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) 02/2013 CABG x 4 - Orthostatic hypotension - Reflux esophagitis Confirmed by Ba swallow. - Seasonal allergies Dr. Espana. 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 - Unspecified asthma(493.90) - Vertebral artery occlusion left - Vitamin D deficiency 2012 PAST SURGICAL HISTORY Procedure Laterality Date - APPENDECTOMY 1961 - CABG (4) VEIN GRAFTS AND ARTERIAL GRAFT(S) 02/26/13 - COLONOSCOP W/ OR W/O BRSH SPEC 09/15/13 few diverticula - 10 year follow up - COLONOSCOPY several - EGD W/O BRSH SPECIMEN W/BX 09/15/13 gastritis, gastric band in place, thin PEG site - EGD W/O OR W/BRUSH/WASH 03/28/2010 EGD - EGD W/O OR W/BRUSH/WASH 05/07/2017 EGD - HEART CATHETERIZATION 09/01/14 diffuse disease, no revascularizable target - HEART SURGERY HX - KIDNEY SURGERY HX - PAST SURGICAL HISTORY OF ~1977 kidney stones - PAST SURGICAL HISTORY OF 1976 intestinal bypass - PAST SURGICAL HISTORY OF ~1977 partial intestinal bypass reversal - PAST SURGICAL HISTORY OF 1994 gastric banding - PAST SURGICAL HISTORY OF 01/18/2005 throat cancer - PEG TUBE 03/20/2005 removed after 1 1/2y - REMOVAL GALLBLADDER ~1977 - XRAY CHEST 1 VIEW 06/06/15 hyperinflation and scarring ALLERGIES Floxin [Ofloxacin]; Flagyl [Metronidazole Hcl]; Ciprofloxacin; Morphine MEDICATIONS etodolac (LODINE) 300 mg capsule Take 1 capsule by mouth every 8 hours. ranitidine (ZANTAC) 150 mg tablet Take 1 tablet by mouth twice daily. NEXIUM 24HR 20 mg capsule TAKE TWO CAPSULES BY MOUTH ONCE DAILY albuterol HFA (VENTOLIN HFA) 90 mcg/actuation inhaler Inhale 2 Puffs as instructed every 4 hours as needed for Wheezing/Shortness of Breath. fluticasone (FLONASE) 50 mcg/actuation nasal spray Use 1 [place] Century in each nostril daily at bedtime. guaiFENesin (MUCINEX) 1,200 mg Ta12 Take 1 tablet by mouth once daily. meclizine (ANTIVERT) 12.5 mg tab Take 1 tablet by mouth twice daily. levothyroxine (SYNTHROID) 75 mcg tablet Take 1 tablet by mouth once daily. sertraline (ZOLOFT) 100 mg tablet Take 0.5 tablets by mouth twice daily. atorvastatin (LIPITOR) 20 mg tablet Take 1 tablet by mouth once daily. aspirin 325 mg tablet Take 81 mg by mouth once daily. clopidogrel (PLAVIX) 75 mg tablet Take 1 tablet by mouth once daily. potassium chloride (K-TAB) 10 mEq tablet Take 1 tablet by mouth daily with breakfast. MULTIVITAMIN TAB Take one(1) tablet daily. prochlorperazine (COMPAZINE) 5 mg tablet Take 1 tablet by mouth every 6 hours as needed. Benzonatate 200 mg capsule Take 200 mg by mouth three times daily as needed. FAMILY HISTORY Problem Relation Age of Onset - Diabetes Mother - Coronary Artery Disease Mother - Psychiatry Mother depression - Cancer Mother lung - Cancer Father esophagus - Asthma Father - esophageal cancer [OTHER] Father - Diabetes Brother - Alcohol/Drug Maternal Uncle - Alcohol/Drug Maternal Grandfather - Coronary Artery Disease Maternal Grandfather - Heart Maternal Grandfather - Alcohol/Drug Brother - Cancer Maternal Uncle throat - Coronary Artery Disease Maternal Aunt - Diabetes Maternal Grandmother - Diabetes Paternal Grandmother - Diabetes Maternal Aunt x2 - Heart Maternal Aunt x2 Social History Substance Use Topics - Smoking status: Never Smoker - Smokeless tobacco: Never Used Comment: Parents smoked in childhood. Spouse smokes. - Alcohol use No Objective Physical Exam Musculoskeletal: Left knee: He exhibits decreased range of motion (due to pain), swelling (mild) and bony tenderness (patellar). He exhibits no effusion, no ecchymosis, no deformity, no laceration, no erythema, normal alignment, no LCL laxity, normal patellar mobility, normal meniscus and no MCL laxity. Tenderness found. Medial joint line and MCL tenderness noted. No lateral joint line, no LCL and no patellar tendon tenderness noted. Nursing note and vitals reviewed. ASSESSMENT/PLAN: 1. Injury of left knee, initial encounter - ICD9: 959.7, ICD10: S89.92XA - Reviewed xray no acute fractures or dislocations. - Pt verbalized understanding. - Treat as sprain/contusion - Stanford wrap applied - Tylenol otc - RICE - F/u with pcp in 7-10 days or sooner if symptoms are not improving or worsening - XR KNEE GENERAL 4V AP BOTH/PA BOTH/LAT/MERC LT Prescription instructions reviewed with patient as applicable. Patient advised if symptoms do not improve or if symptoms worsen sooner, to contact their primary care physician. Potential red flag symptoms discussed with the patient. Reviewed appropriate action plan to take if red flag symptoms occur. Patient agreeable to treatment plan. Marilyn Angel CNP XR KNEE 4V AP/PA Observed: 09/30/2017 Status: F Source: [place] BOTH+LAT/VISH LT 2:10 PM [facility] [place] REPOSITORY * * *Final Report* * * DATE OF EXAM: Sep 30 2017 2:10PM WOX [id number] - XR KNEE 4V AP/PA BOTH+LAT/VISH LT / PROCEDURE REASON: Unspecified injury of left lower leg, initial encounter * * * * Physician Interpretation * * * * HISTORY: Unspecified injury of left lower leg, initial encounter TECHNIQUE: 4 views left knee COMPARISON: None. RESULT: There is no acute fracture. Normal joint space compartments and alignment. There is no joint effusion. Vascular calcifications are present. Surgical clips are in the medial soft tissue of the calf. IMPRESSION: NO ACUTE BONY ABNORMALITY Whip Operator: [facility] Transcribe Date/Time: Sep 30 2017 2:14P Dictated by : GAMA MCKEON MD This examination was interpreted and the report reviewed and electronically signed by: GAMA MCKEON MD on Sep 30 2017 2:15PM EST [id number] PROGRESS Observed: 09/30/2017 Status: COMPLETED Source: [place] 1:51 PM [facility] REPOSITORY HNO ID: [id number] Author: Reyna Quezada (Rt) Juvenal Gonzalez Service: (none) Author Type: Fitness Specialist Type: Progress Notes Filed: 09/30/2017 2:10 PM Note Text: Radiology Service Progress Note PATIENT NAME: Shayan Culver DATE OF SERVICE: September 30, 2017 TIME: 1:51 PM PATIENT IDENTITY VERIFICATION COMPLETED USING TWO (2) METHODS: Patient confirmed name verbally and Date of . PATIENT GENDER DATA: Male PATIENT RELEVANT IMPLANT DATA REVIEWED: Not Applicable RADIOLOGY DEPARTMENT: General X-ray: Exam(s) Completed: Lower Extremity X-Ray(s): Knee, AP / Lat / Tunne / Merchant Left: PERIPHERAL IV DATA: Not applicable SIGNED BY: RT Jimmy September 30, 2017 1:51 PM PROGRESS Observed: 09/18/2017 Status: COMPLETED Source: [place] 12:09 PM CLINIC MAIN CAMPUS REPOSITORY HNO ID: [id number] Author: Laura Grove Service: (none) Author Type: Physician Type: Progress Notes Filed: 09/18/2017 1:01 PM Note Text: Reason for Visit Patient presents with: Established Patient: wanting meds for pain, no narcotics Shayan Culver is a 66 year old male who presents here today for Above Complaints.. Health Maintenance TETANUS HEPATITIS C SCREENING HPI He has quit taking prednisone and the flourinef, he notes that his bp does not go too low. He has stopped having thrush and does not want to He was to have a carotid endarterectomy which was aborted due to the high blood pressure. Would like to have something for pain which seems to be an issue ever since he was off presnisone Also notes hair loss, severe fatigue and body aches. No problem-specific Assessment AND Plan notes found for this encounter. PAST MEDICAL HISTORY Diagnosis Date - BPH (benign prostatic hyperplasia) - CAD (coronary artery disease) - Carotid stenosis L>R - COPD (chronic obstructive pulmonary disease) (HCC) - Essential hypertension, benign Labile hyper and hypotensive - GERD (gastroesophageal reflux disease) 2012 - History of gastric bypass - Hyperlipidemia - Hypothyroidism - Major depressive disorder, single episode, moderate (HCC) Corey Pardo-therapist and José Stewart - Malignant neoplasm of lingual tonsil (HCC) 2004 SCC - GA (myocardial infarction) 02/2013 CABG x 4 - Orthostatic hypotension - Reflux esophagitis Confirmed by Ba swallow. - Seasonal allergies Dr. Espana. 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 - Unspecified asthma(493.90) - Vertebral artery occlusion left - Vitamin D deficiency 2012 PAST SURGICAL HISTORY Procedure Laterality Date - APPENDECTOMY 1961 - CABG (4) VEIN GRAFTS AND ARTERIAL GRAFT(S) 02/26/13 - COLONOSCOP W/ OR W/O BRSH SPEC 09/15/13 few diverticula - 10 year follow up - COLONOSCOPY several - EGD W/O BRSH SPECIMEN W/BX 09/15/13 gastritis, gastric band in place, thin PEG site - EGD W/O OR W/BRUSH/WASH 03/28/2010 EGD - EGD W/O OR W/BRUSH/WASH 05/07/2017 EGD - HEART CATHETERIZATION 1/28/15 diffuse disease, no revascularizable target - HEART SURGERY HX - KIDNEY SURGERY HX - PAST SURGICAL HISTORY OF ~1977 kidney stones - PAST SURGICAL HISTORY OF 1976 intestinal bypass - PAST SURGICAL HISTORY OF ~1977 partial intestinal bypass reversal - PAST SURGICAL HISTORY OF 1994 gastric banding - PAST SURGICAL HISTORY OF 01/18/2005 throat cancer - PEG TUBE 03/20/2005 removed after 1 1/2y - REMOVAL GALLBLADDER ~1977 - XRAY CHEST 1 VIEW 06/06/15 hyperinflation and scarring FAMILY HISTORY Problem Relation Age of Onset - Diabetes Mother - Coronary Artery Disease Mother - Psychiatry Mother depression - Cancer Mother lung - Cancer Father esophagus - Asthma Father - esophageal cancer [OTHER] Father - Diabetes Brother - Alcohol/Drug Maternal Uncle - Alcohol/Drug Maternal Grandfather - Coronary Artery Disease Maternal Grandfather - Heart Maternal Grandfather - Alcohol/Drug Brother - Cancer Maternal Uncle throat - Coronary Artery Disease Maternal Aunt - Diabetes Maternal Grandmother - Diabetes Paternal Grandmother - Diabetes Maternal Aunt x2 - Heart Maternal Aunt x2 Social History Substance Use Topics - Smoking status: Never Smoker - Smokeless tobacco: Never Used Comment: Parents smoked in childhood. Spouse smokes. - Alcohol use No Past medical history, appointments, medications, allergies reviewed. Pertinent Lab/Diagnostic Studies are reviewed and discussed today Current Outpatient Prescriptions: - NEXIUM 24HR 20 mg capsule - albuterol HFA (VENTOLIN HFA) 90 mcg/actuation inhaler - fluticasone (FLONASE) 50 mcg/actuation nasal spray - guaiFENesin (MUCINEX) 1,200 mg Ta12 - prochlorperazine (COMPAZINE) 5 mg tablet - meclizine (ANTIVERT) 12.5 mg tab - levothyroxine (SYNTHROID) 75 mcg tablet - sertraline (ZOLOFT) 100 mg tablet - Benzonatate 200 mg capsule - atorvastatin (LIPITOR) 20 mg tablet - fludrocortisone (FLORINEF) 0.1 mg tablet - aspirin 325 mg tablet - clopidogrel (PLAVIX) 75 mg tablet - potassium chloride (K-TAB) 10 mEq tablet - MULTIVITAMIN TAB Review of Systems CONSTITUTIONAL: No fevers, chills night sweats, unintended weight loss CARDIOVASCULAR: No chest pain, dyspnea, palpitations, orthopnea, PND, ankle edema. PULM: No dyspnea, unexplained cough. GI: No dysphagia/odynophagia, problematic reflux, constipation, diarrhea, changes in stool habits, hematochezia, melena. : No new urinary complaints, including dysuria, gross hematuria or pyuria. NEURO: No new balance problems, peripheral weakness/paresthesias or numbness of concern. Physical Exam BP 138/72 (BP Site: Left Arm, BP Position: Sitting, BP Cuff Size: Regular Adult) Pulse 87 Resp 12 Ht 185.4 cm (6' 1) Wt 91.5 kg (201 lb 12.8 oz) SpO2 97% BMI 26.62 kg/m2 General appearance: Well appearing, alert, in no acute distress, well nourished. Skin: Skin color, texture, turgor normal, no suspicious rashes or lesions Head: Normocephalic, no masses, lesions, tenderness or abnormalities Eyes: Anicteric sclera. Pupils are equally round and reactive to light. Extraocular movements are intact. Lungs: Lungs clear to auscultation. No wheezing, rhonchi, rales Heart: RRR without murmur, gallop, or rubs. Extremities: No deformities, edema, skin discoloration, clubbing or cyanosis. Good capillary refill. ASSESSMENT/PLAN: 1. Whole body pain - ICD9: 780.96, ICD10: R52 (primary diagnosis) To take ranitidine with the etodolac - ETODOLAC 300 MG CAPSULE - RANITIDINE 150 MG TABLET 2. Vitamin D deficiency - ICD9: 268.9, ICD10: E55.9 - VITAMIN D 25 HYDROXY 3. Falling hair - ICD9: 704.00, ICD10: L65.9 - TSH BLD - CBC + DIFF - T3 BLD - T4 FREE/FREE THYROX 4. Hypertension, unspecified type - ICD9: 401.9, ICD10: I10 Today blood pressure is good, he is not on any medication LAURA GROVE MD BRIEF OP NOT Observed: 09/13/2017 Status: COMPLETED Source: [place] 12:08 PM CLINIC OTHER CAMPUS REPOSITORY HNO ID: [id number] Author: Luther Nieto Service: Vascular Surgery Author Type: Physician Type: Brief Op Note Filed: 09/13/2017 12:17 PM Note Text: Patient was extremely hypertensive on entry into the room despite having been given PO Ativan for anxiety. On no antihypertensives per record. Initial BP with systolics 190-200 and diastolics 110-120. Given hydralazine x2 5 then 10mg more without adequate resolution. With his lesions being very tight risk of reperfusion bleeding due to loss of cerebral autoregulation and uncontrolled HTN were felt to be significant. Decision to contact his medical device sales consultant adjust meds and attempt stenting at another time was made. I contacted his medical device sales consultant Dr Dunbar and discussed case. He will contact patient and adjust meds and follow up with BP check next week. If better I will reschedule. Plan for intra-arterial monitoring at next attempt with Nitrotoglycerine drip if needed. Today's case cancelled. PLATELET Collected: 09/13/2017 Status: F Source: [facility] 8:30 AM HEALTH SYSTEM REPOSITORY TYPE CODE TESTS RESULT OUT OF REFERENCE UNITS RANGE LAB PLTI(LOINC) 141-365 thou/cmm Platelet 214 Performed By: #### PLTI #### [place] [address] PROTIME Collected: 09/12/2017 Status: F Source: [place] 4:02 PM [facility] [place] REPOSITORY TYPE CODE TESTS RESULT OUT OF RANGE REFERENCE UNITS LAB PSEC 9.7-13.0 sec PT Sec 10.5 LAB INR 0.9-1.3 PT INR 1.0 Result Comment: Vitamin K Antagonist (VKA) Therapeutic Range: INR 2 to 3 (Target INR of 2.5) Note: For patients treated with VKA drugs, such as warfarin, the [place] [employer] 2012 Guideline recommends a therapeutic INR range of 2 to 3 (target INR of 2.5). This recommendation includes high-risk patients with antiphospholipid syndrome with previous arterial or venous thromboembolism, current-generation mechanical or bioprosthetic aortic heart valve replacement. Note: Patients with mechanical aortic valve replacement and additional risk factors for thromboembolic events (atrial fibrillation, previous thromboembolism, LV dysfunction, hypercoagulable conditions) or an older generation mechanical AVR (i.e., ball in-Cage) or any mechanical MVR should have a INR therapeutic range of 2.5 to 3.5 (target INR of 3). Yeni QUIGLEY, et al. Chest 2012, 141:7S-47S Kendra VUONG et al. [facility] 2017, 70: 252-289 Performed By: #### PT, PTT, BMP #### [facility] [employer] [address], [place] [address] APTT Collected: 09/12/2017 Status: F Source: [place] 4:02 [facility] REPOSITORY TYPE CODE TESTS RESULT OUT OF RANGE REFERENCE UNITS LAB APTT 23.0-32.4 sec APTT 27.0 Result Comment: Unfractionated Heparin Therapeutic Ranges: Standard Heparin Nomogram: 53 to 78 seconds (anti-Xa level of 0.3 to 0.7 U/ml) Low Dose/ACS Nomogram: 49 to 67 seconds (anti-Xa level of 0.2 to 0.5 U/ml) Stroke Treatment Nomogram: 49 to 67 seconds (anti-Xa level of 0.2 to 0.5 U/ml) Note: The APTT therapeutic range has been determined for the current lot of laboratory APTT reagent in use throughout the [facility]. Performed By: #### PT, PTT, BMP #### [facility] [employer] [address] [place], [place] [address] BASIC METABOLIC PANL Collected: 09/12/2017 Status: F Source: [place] 4:02 [facility] REPOSITORY TYPE CODE TESTS RESULT OUT OF REFERENCE UNITS RANGE LAB GLU 74-99 mg/dL Glucose 94 Result Comment: The [place] Diabetes Association (ADA) provides guidance for cutoff values for fasting glucose and random glucose. The ADA defines fasting as no caloric intake for at least 8 hours. Fas ting plasma glucose results between 100 to 125 mg/dL indicate increased risk for diabetes (prediabetes). Fasting plasma glucose results greater than or equal to 126 mg/dL meet the criteria for diagnosis of diabetes. In the absence of unequivocal hyperglycemia, results should be confirmed by repeat testing. In a patient with classic symptoms of hyperglycemia or hyperglycemic crisis, random plasma glucose results greater than or equal to 200 mg/dL meet the criteria for diagnosis of diabetes. Reference: Standards of Medical Care in Diabetes 2016, [place] Diabetes Association. Diabetes Care. 2016.39(Suppl 1). LAB BUN 9-24 mg/dL BUN 21 LAB CRET 0.73-1.22 mg/dL Creatinine High 1.32 LAB NA 136-144 mmol/L Sodium 139 LAB K 3.7-5.1 mmol/L Potassium 3.9 LAB CL 97-105 mmol/L Chloride 99 LAB CO2 22-30 mmol/L CO2 26 LAB AGAP 9-18 mmol/L Anion Gap 14 LAB CA 8.5-10.2 mg/dL Calcium, Total 9.5 LAB GFRAA eGFR- Amer. >60 LAB GFRNAA . eGFR-All Other Races 55 Result Comment: eGFR (Estimated GFR) Units of measure: mL/min/1.73 meters squared eGFR is derived from the reexpressed MDRD Study equation using the following parameters: serum creatinine, age, gender and race. The creatinine assay has been calibrated to be traceable to IDMS. An eGFR <60 mL/min/1.73m2 for >3 months is consistent with chronic kidney disease. Refer to KDOQI guidelines for clinical interpretation. In patients with unstable renal function, e.g. those with acute kidney injury, the eGFR may not accurately reflect actual GFR. Performed By: #### PT, PTT, BMP #### [facility] [address], [place] [address] PROGRESS Observed: 09/05/2017 Status: COMPLETED Source: [place] 8:40 AM [facility] REPOSITORY HNO ID: [id number] Author: Jovana Whitaker Service: (none) Author Type: Physician Pricing Strategist Type: Progress Notes Filed: 09/05/2017 9:48 AM Note Text: [facility] [place], 09/05/17: INTERVAL HISTORY: The patient is here for follow up of asthma. Since the last visit 07/01/17, patient relates no ED visits or hospitalizations for management of exacerbation. Patient scheduled for left carotid arteriogram with possible stenting on 09/13/17. Patient weaned himself off of Prednisone since last office visit. Has not followed up with PCP as directed. Variable dry cough. No hemoptysis. No pleuritic chest pain. Variable wheezing, relieved with rescue inhaler. Exertional dyspnea. No nocturnal awakenings. Not requiring rescue bronchodilator weekly. I have not used it for a week. Side effects from medications: none. 2-3 times daily rescue bronchodilator use. Relieves chest tightness. Side effects from medications: unable to tolerate any addition to simple albuterol such as inhaled corticosteroids and anticholinergic bronchodilators secondary to oral thrush. PMH: Reviewed with patient today. No changes. FAMH: Reviewed with patient today. No changes. SOCH: No changes. ROS: General: Generally feels well. Eyes: No blurred vision, eye pain. Ears, nose, throat: Post nasal drip, rhinorrhea. No purulent nasal discharge, hoarseness. Cardiac: No angina, edema, orthopnea, paroxysmal nocturnal dyspnea. palpitations. GI: Heartburn, if eats chocolate at night and then goes to bed. No dysphagia. 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 Neuro/Psych: No headache, focal weakness, tremor. Sleeps poorly secondary to muscular pain. Skin: No rash. Otherwise negative. Immunization History Administered Date(s) Administered Influenza Seasonal Inj Age 3+ 05/14/2014 05/31/2016 Influenza Seasonal Inj Quadrivalent Age 3+ 07/11/2015 Influenza Vaccine, Split-Non Spec 05/19/2012 06/26/2013 Pneumococcal-13 Vac Conjugate 05/31/2016 Pneumovax 07/09/2006 Allergies were verified and updated, and medications were reconciled with the patient at this visit. PHYSICAL EXAMINATION: BP 104/62 Pulse 96 Resp 18 Wt 203 lb (92.1kg) SpO2 96% Body mass index is 26.78 kg/(m2). Gen: No acute distress. Cooperative with examination. ENT: Sclerae clear. EOMI. Nares clear. Oral hygeine good. Pharynx clear. No sign of oral thrush. Resp: No stridor, accessory respiratory muscle use, supra- sternal or intercostal retractions. No crackles, wheezes, rubs. CV: Regular rythm. Heart tones normal. Bilateral carotid bruit. Radial pulses normal. Abd: Non distended. MSK: No kyphoscoliosis, joint deformities. Ext: Warm and well perfused. No clubbing, cyanosis, edema. Skin: Color normal. Texture normal. No rash, eczema, urticaria. Neuro: Mental status normal. Affect normal. Muscle tone normal. No tremor. IMPRESSION and RECOMMENDATIONS: 1. Asthma, late onset, severe persistent, uncomplicated. Use your albuterol inhaler (Ventolin) at least 4 times daily. Start using Mucinex 1200 mg every 12 hours. This will help you cough up the mucus. Drink plenty of fluids to thin the mucus. Discuss with PCP prednisone use and pain control. Patient instructed to go to PCP for influenza vaccine. Our office does not have any additional vaccines. 2. Chronic Rhinitis. - Start nasal saline rinses as needed. - Flonase, 1-2 sprays each nostril once daily. ? - I reviewed the pathophysiology of asthma, NIH guidelines for evaluation and management, and mechanisms of action and side effects of medical therapy (ICS, bronchodilators) with the patient. I addressed the questions of the patient and , and they expressed understanding and acceptance of my answers. Jovana Whitaker PA-C [address] [place] [phone] CNOV Observed: 09/05/2017 Status: COMPLETED Source: [place] 8:30 AM [facility] REPOSITORY Office Visit (PULMWS) SHAYAN CULVER ([id number]) 1950 M Date Time Provider Department 09/05/17 8:30 AM JOVANA WHITAKER During your visit today, we recorded the following information about you: Pulse Respiration Blood pressure Weight 96/minute 18/minute 104/62 92.1 kg Jovana Whitaker PA-C 09/05/2017 9:48 AM Signed [facility], 09/05/17: INTERVAL HISTORY: The patient is here for follow up of asthma. Since the last visit 07/01/17, patient relates no ED visits or hospitalizations for management of exacerbation. Patient scheduled for left carotid arteriogram with possible stenting on 09/13/17. Patient weaned himself off of Prednisone since last office visit. Has not followed up with PCP as directed. Variable dry cough. No hemoptysis. No pleuritic chest pain. Variable wheezing, relieved with rescue inhaler. Exertional dyspnea. No nocturnal awakenings. Not requiring rescue bronchodilator weekly. ANDquot;I have not used it for a weekANDquot;. Side effects from medications: none. 2-3 times daily rescue bronchodilator use. Relieves chest tightness. Side effects from medications: unable to tolerate any addition to simple albuterol such as inhaled corticosteroids and anticholinergic bronchodilators secondary to oral thrush. PMH: Reviewed with patient today. No changes. FAMH: Reviewed with patient today. No changes. SOCH: No changes. ROS: General: Generally feels well. Eyes: No blurred vision, eye pain. Ears, nose, throat: Post nasal drip, rhinorrhea. No purulent nasal discharge, hoarseness. Cardiac: No angina, edema, orthopnea, paroxysmal nocturnal dyspnea. palpitations. GI: Heartburn, if eats chocolate at night and then goes to bed. No dysphagia. 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 Neuro/Psych: No headache, focal weakness, tremor. Sleeps poorly secondary to muscular pain. Skin: No rash. Otherwise negative. Immunization History Administered Date(s) Administered Influenza Seasonal Inj Age 3+ 05/14/2014 05/31/2016 Influenza Seasonal Inj Quadrivalent Age 3+ 07/11/2015 Influenza Vaccine, Split-Non Spec 05/19/2012 06/26/2013 Pneumococcal-13 Vac Conjugate 05/31/2016 Pneumovax 07/09/2006 Allergies were verified and updated, and medications were reconciled with the patient at this visit. PHYSICAL EXAMINATION: BP 104/62 Pulse 96 Resp 18 Wt 203 lb (92.1kg) SpO2 96% Body mass index is 26.78 kg/(m2). Gen: No acute distress. Cooperative with examination. ENT: Sclerae clear. EOMI. Nares clear. Oral hygeine good. Pharynx clear. No sign of oral thrush. Resp: No stridor, accessory respiratory muscle use, supra- sternal or intercostal retractions. No crackles, wheezes, rubs. CV: Regular rythm. Heart tones normal. Bilateral carotid bruit. Radial pulses normal. Abd: Non distended. MSK: No kyphoscoliosis, joint deformities. Ext: Warm and well perfused. No clubbing, cyanosis, edema. Skin: Color normal. Texture normal. No rash, eczema, urticaria. Neuro: Mental status normal. Affect normal. Muscle tone normal. No tremor. IMPRESSION and RECOMMENDATIONS: 1. Asthma, late onset, severe persistent, uncomplicated. Use your albuterol inhaler (Ventolin) at least 4 times daily. Start using Mucinex 1200 mg every 12 hours. This will help you cough up the mucus. Drink plenty of fluids to thin the mucus. Discuss with PCP prednisone use and pain control. Patient instructed to go to PCP for influenza vaccine. Our office does not have any additional vaccines. 2. Chronic Rhinitis. - Start nasal saline rinses as needed. - Flonase, 1-2 sprays each nostril once daily. ? - I reviewed the pathophysiology of asthma, NIH guidelines for evaluation and management, and mechanisms of action and side effects of medical therapy (ICS, bronchodilators) with the patient. I addressed the questions of the patient and , and they expressed understanding and acceptance of my answers. Jovana Whitaker PA-C [facility] [address] [phone] Jovana Whitaker PA-C 09/05/2017 9:00 AM Signed 1. Asthma, late onset, severe persistent, uncomplicated. Use your albuterol inhaler (Ventolin) at least 4 times daily. Start using Mucinex 1200 mg every 12 hours. This will help you cough up the mucus. Drink plenty of fluids to thin the mucus. Discuss with PCP prednisone use and pain control. Influenza vaccine today. 2. Chronic Rhinitis. - Start nasal saline rinses as needed. - Flonase, 1-2 sprays each nostril once daily. Referring Provider: MARCO FRIAS (GALEN) [[id number]] Allergies As of Date: 09/05/2017 Noted Allergy Reaction FLOXIN (OFLOXACIN) 10/09/2005 1 - Mental Status Change Comments: Severe depression. FLAGYL (METRONIDAZOLE HCL) 01/15/2005 1 - Mental Status Change Comments: Depression. CIPROFLOXACIN 02/16/2013 6 - Diarrhea 16 - Unknown Comments: ? diarrhea. MORPHINE 12/28/2016 1 - Mental Status Change Date Reviewed: 09/05/2017 Reviewed by: Jovana Whitaker - Fully Assessed Reason for Visit: Established Patient [175] Cmt: asthma Primary Visit Diagnosis:Asthma, late onset, severe persistent, uncomplicated [J45.50] Other Visit Diagnoses:Chronic rhinitis [J31.0] Post-nasal drip [R09.82] Order(s):albuterol HFA (VENTOLIN HFA) 90 mcg/actuation inhalerInhale 2 Puffs as instructed every 4 hours as needed for Wheezing/Shortness of Breath.Disp: 1 InhalerRfl: 5 SPIROMETRY BASELINE ONLY [[id number]] Order #: [id number] FUTURE fluticasone (FLONASE) 50 mcg/actuation nasal sprayUse 1 [place] in each nostril daily at bedtime.Disp: 1 BottleRfl: 3 guaiFENesin (MUCINEX) 1,200 mg [id number] 1 tablet by mouth once daily.Disp: 30 tabletRfl: 3 Prescriptions as of 09/05/2017 Sig: GUAIFENESIN ER 1,200 MG TABLE* Take 1 tablet by mouth once d* PROCHLORPERAZINE MALEATE 5 MG* Take 1 tablet by mouth every * MECLIZINE 12.5 MG TABLET Take 1 tablet by mouth twice * LEVOTHYROXINE 75 MCG TABLET Take 1 tablet by mouth once d* SERTRALINE 100 MG TABLET Take 0.5 tablets by mouth twi* ESOMEPRAZOLE MAGNESIUM 22.3 M* Take 2 capsules daily ATORVASTATIN 20 MG TABLET Take 1 tablet by mouth once d* ASPIRIN 325 MG TABLET Take 81 mg by mouth once genaro* CLOPIDOGREL 75 MG TABLET Take 1 tablet by mouth once d* POTASSIUM CHLORIDE ER 10 MEQ * Take 1 tablet by mouth daily * MULTIVITAMIN TABLET Take one(1) tablet daily. ALBUTEROL SULFATE HFA 90 MCG/* Inhale 2 Puffs as instructed * FLUTICASONE 50 MCG/ACTUATION * Use 1 [place] in each nostril d* ESOMEPRAZOLE MAGNESIUM 20 MG * Take 1 capsule by mouth daily* BENZONATATE 200 MG CAPSULE Take 200 mg by mouth three ti* FLUDROCORTISONE 0.1 MG TABLET Take 1 tablet by mouth once d* Patient taking differently: Take 0.1 mg by mouth twice da* Medication notes this encounter FLUDROCORTISONE 0.1 MG TABLET >> Jovana Whitaker PA-C 09/05/2017 8:40 AM >> JOVANA WHITAKER Sep 05, 2017 8:40 AM Not taking since 06/21 Problem List As Of Date 09/05/2017 Noted Resolved MALIGNANT NEOPL TONSIL [C09.9] INVALID FOR* DIZZINESS AND GIDDINESS [R42] INVALID FOR* More... 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 Depression [F32.9] INVALID FOR* More... GERD (gastroesophageal reflux disease) [K21.9] INVALID FOR* More... Vitamin d deficiency [E55.9] Hyperlipidemia [E78.5] More... Hearing loss [H91.90] INVALID FOR* BPPV (benign paroxysmal positional vertigo) [H8*INVALID FOR* Tonsillar cancer [C09.9] INVALID FOR* CAD (coronary artery disease) [I25.10] More... Carotid stenosis [I65.29] More... Encounter for screening colonoscopy [Z12.11] INVALID FOR* Diverticula of colon [K57.30] INVALID FOR* Gastritis [K29.70] INVALID FOR* Irritation around percutaneous endoscopic gastr*INVALID FOR* Essential hypertension, benign [I10] More... Labile blood pressure [R09.89] INVALID FOR* Other pain disorders related to psychological f*INVALID FOR* Adjustment disorder with mixed anxiety and depr*INVALID FOR* Asthma, moderate persistent, poorly-controlled * Arthritis [M19.90] INVALID FOR* More... Orthostatic hypotension [I95.1] INVALID FOR* More... COPD with chronic bronchitis (HCC) [J44.9] INVALID FOR* More... Hypertension [I10] INVALID FOR* More... Environmental allergies [Z91.09] INVALID FOR* More... Complication of gastrostomy tube (HCC) [K94.20] INVALID FOR* Reflux esophagitis [K21.0] More... Other instructions from your clinician: 1. Asthma, late onset, severe persistent, uncomplicated. Use your albuterol inhaler (Ventolin) at least 4 times daily. Start using Mucinex 1200 mg every 12 hours. This will help you cough up the mucus. Drink plenty of fluids to thin the mucus. Discuss with PCP prednisone use and pain control. Influenza vaccine today. 2. Chronic Rhinitis. - Start nasal saline rinses as needed. - Flonase, 1-2 sprays each nostril once daily. Prescriptions ordered this encounter Disp Refills Start End ALBUTEROL SULFATE HFA 90 MCG/ACTUATI* 1 In* 5 09/05/2017 Route: INHALATION Sig: Inhale 2 Puffs as instructed every 4 hours as needed for Wheezing/Shortness of Breath. FLUTICASONE 50 MCG/ACTUATION NASAL S* 1 Nikhil* 3 09/05/2017 Route: EACH NOSTRIL Sig: Use 1 [place] in each nostril daily at bedtime. GUAIFENESIN ER 1,200 MG TABLET, EXTE* 30 t* 3 09/05/2017 Route: ORAL Sig: Take 1 tablet by mouth once daily. Medications Discontinued During This Encounter predniSONE (DELTASONE) 10 mg tablet 30 t* 5 06/12/2017 09/05/2017 Cmt: Please consider 90 day supplies to promote better adherence Sig: TAKE ONE TABLET BY MOUTH ONCE DAILY Disc: Reason for discontinue is not on file. predniSONE (DELTASONE) 2.5 mg tablet 0 02/25/2017 09/05/2017 Class: Med Update Route: ORAL Sig: Take 5 tablets by mouth once daily. Disc: Reason for discontinue is not on file. fluticasone (FLONASE) 50 mcg/actuati* 1 Nikhil* 3 05/20/2017 09/05/2017 Route: EACH NOSTRIL Sig: Use 2 Sprays in each nostril daily at bedtime. Disc: Reason for discontinue is not on file. albuterol HFA (VENTOLIN HFA) 90 mcg/* 1 In* 0 02/01/2016 09/05/2017 Route: INHALATION Sig: Inhale 2 Puffs as instructed every 4 hours as needed for Wheezing/Shortness of Breath. Disc: Reason for discontinue is not on file. guaiFENesin (MUCINEX) 1,200 mg Ta12 0 04/22/2017 09/05/2017 Class: Med Update Route: ORAL Sig: Take 1 tablet by mouth once daily. Disc: Reason for discontinue is not on file. Disposition: Return in about 3 months (around 12/03/2017). Follow-up and Disposition History Recorded Encounter Status:Closed by JOVANA WHITAKER on 09/05/17 ALLERGIES ALLERGIES DATE TYPE / CODE NAME / CODE REACTION SEVERITY SOURCE 04/29/2018 Drug ciprofloxacin Vomiting Unknown [place] Allergy/416 HCl/[id number](RXNO Community 449998([facility]) [facility] ED CT) Repository 04/29/2018 Drug morphine/[id number] after 2-3 Unknown [place] Allergy/416 (RXNORM) days I turn [facility] 508420([facility] ED CT) monster Repository 04/29/2018 Drug ciprofloxacin/F0060 Vomiting Unknown [place] Allergy/416 31953(RXNORM) Community 916553([facility] ED CT) Repository 04/29/2018 Drug metronidazole/F0060 Vomiting Unknown [place] Allergy/416 72664(RXNORM) Community 063151([facility] ED CT) Repository 04/29/2018 Drug ofloxacin/[id number] Vomiting Unknown [place] Allergy/416 3(RXNORM) [facility] 645120([facility] ED CT) Repository 12/28/2016 DRUG MORPHINE Mental Chg [facility] INGREDI/419 Other [place] 816284(SNOM Repository ED CT) 02/16/2013 DRUG CIPROFLOXACIN DIARRHEA [facility] INGREDI/419 Other [place] 891418(SNOM Repository ED CT) 10/09/2005 DRUG OFLOXACIN Mental Chg High [facility] INGREDI/419 Other [place] 041292(SNOM Repository ED CT) 01/15/2005 DRUG METRONIDAZOLE HCL Mental Chg [facility] INGREDI/419 Other [place] 074082(SNOM Repository ED CT) NG/[id number] OFLOXACIN [facility] Repository NG/[id number] METRONIDAZOLE HCL [facility]) Repository NG/[id number] CIPROFLOXACIN [facility]) Repository NG/[id number] MORPHINE [facility]) Repository ENCOUNTERS ENCOUNTERS ADMIT/DISCHARGE ACCOUNT NUMBER ADMITTING ENCOUNTER LOCATION SOURCE CLASS 08/22/2018/08/27/19 [id number] Ambulatory [address] Main [place] Repository 08/21/2018 [id number] Ambulatory [facility] Hospital ding:RAD Repository 08/21/2018/08/21/19 [id number] Ambulatory BMSBuilding: [place] 19 BMS.[facility] Repository 08/03/2018/08/04/20 [id number] Ambulatory [address] Repository 07/03/2018/07/04/20 [id number] Ambulatory [address] Repository 06/20/2018/06/23/20 [id number] Ambulatory [address] Repository 05/13/2018/05/15/20 [id number] Ambulatory [address] Repository 04/29/2018/05/01/20 [id number] Shanda Andrade Amb[place] 18 [facility] ding:[id number] Repository : BN128Qme: 1 04/29/2018 [id number] Shanda Andrade Ambulatory BMSBuilding: [place] BMS.[facility] Repository 04/29/2018 [id number] Shanda Andrade Ambulatory BMSBuilding: [place] BMS.[facility] Repository 04/29/2018 [id number] Shanda Andrade Ambulatory BMSBuilding: [place] BMS.[facility] Repository 04/29/2018/04/29/20 [id number] Ambulatory BMSBuilding: [place] 18 BMS.[facility] Repository 04/17/2018/04/18/20 [id number] Ambulatory [address] Repository 04/03/2018/04/03/20 [id number] Ambulatory BMSBuilding: [place] 18 BMS.[facility] Repository 04/02/2018/04/03/20 [id number] Ambulatory [address] Repository 03/20/2018/03/21/20 [id number] Ambulatory [address] Repository 02/21/2018/02/22/20 [id number] Ambulatory [address] Other [place] Repository 02/21/2018/02/22/20 [id number] Ambulatory [address] MEDICAL Repository CENTERBuildi ng:AGWM 02/04/2018 [id number] Ambulatory BMSBuilding: [place] BMS.[facility] Repository 01/31/2018/02/01/20 [id number] Ambulatory [address] Repository 01/31/2018/02/04/20 [id number] Ambulatory [address] Repository 01/08/2018/01/09/20 [id number] Ambulatory [address] Repository 01/07/2018 [id number] Ambulatory [facility] Repository 01/07/2018/01/09/20 [id number] Ambulatory [address] [place] Repository 12/20/2017/12/24/19 [id number] Ambulatory [address] Repository 12/19/2017 [id number] Ambulatory [facility] Repository 12/12/2017/12/13/19 [id number] Ambulatory [address] Repository 12/12/2017/12/22/19 [id number] Ambulatory [address] Repository 12/12/2017 [id number] Ambulatory [facility] Repository 12/12/2017/12/14/19 [id number] Ambulatory [address] Repository 12/12/2017 [id number] Ambulatory [facility] Repository 12/12/2017/12/13/19 [id number] Ambulatory [address] Repository 12/06/2017/12/08/19 [id number] [place], Inpatient [address] Repository 12/06/2017/12/08/19 [id number] [place], [place] [address] MEDICAL Repository [place]:CVICRoom: [id number]: 11/29/2017/11/30/19 [id number] Ambulatory [address] Repository 11/29/2017/11/30/19 [id number] Ambulatory [address] MEDICAL Repository [place]:AGWM 11/21/2017/11/26/19 [id number] Ambulatory [address] Repository 11/08/2017/11/10/19 [id number] [place], Inpatient [address] Repository 11/08/2017/11/10/19 [id number] [place] [address] MEDICAL Repository CENTERBuildi ng:CVICRoom: [id number]: 11/06/2017/11/07/19 [id number] Ambulatory [address] Repository 10/17/2017 [id number] Ambulatory [facility] Repository 10/04/2017 [id number] Ambulatory [facility] MEDICAL Repository CENTERBuildi ng:AGWM 09/30/2017/09/30/19 [id number] Ambulatory [address] Repository 09/30/2017/10/04/19 [id number] Ambulatory [address] Repository 09/18/2017/09/19/19 [id number] Ambulatory [address] Repository 09/13/2017 [id number] [place], Ambulatory [facility] Repository 09/13/2017/09/13/19 [id number] [place], [address] MEDICAL Repository CENTERBuildi ng:AKIRRoom: POOLBed: 05 09/12/2017/09/12/19 [id number] Ambulatory [address] Repository 09/05/2017/09/05/19 [id number] Ambulatory [address] Repository PAYERS PAYERS ENCOUNTER GUARANTOR PAYER SUBSCRIBER SOURCE 08/21/2018 SHAYAN Jerome Primary SHAYAN [id number] Insurance:MYCARE [facility] THOMPSONDOB: Community MURALI RUN *IN [facility] [id number] Number: Repository [id number]: 330 [id number] [phone] () Date:4946-93-34BRFA CLAIMS DEPTPO [address] [address]BR: 08/21/2018 Secondary NOT GIVENUNK [place] Insurance:SELF PAY [facility] Number: Effective Repository Date:2018-08-21 08/21/2018 SHAYAN Jerome Primary SHAYAN [id number] Insurance:MYCARE CRSC THOMPSONDOB: Community MURALI RUN *IN [facility] [id number] Number: Repository [id number]: 330 [id number] [phone] (HP) Date:9025-54-44EAKZ CLAIMS DEPTPO [address] [address]QF: 08/21/2018 Secondary NOT GIVENUNK [place] Insurance:SELF PAY [facility] Number: Effective Repository Date:2018-08-21 04/29/2018 SHAYAN Jerome Primary SHAYAN [id number] Insurance:MYCARE CRSC THOMPSONDOB: Community MURALI RUN *IN [facility] [id number] Number: Repository [id number]: 330 [id number] [phone] (HP) Date:3960-62-91KGQF CLAIMS DEPTPO [address] [address]KK: 04/29/2018 Secondary NOT GIVENUNK [place] Insurance:SELF PAY [facility] Number: Effective Repository Date:2018-04-29 04/29/2018 SHAYAN Jerome Primary SHAYAN [id number] Insurance:MYCARE CRSC THOMPSONDOB: Community MURALI RUN *IN [facility] [id number] Number: Repository [id number]: 330 [id number] [phone] (HP) Date:8098-07-93WPZC CLAIMS DEPTPO [address] [place] [address]LA: 04/29/2018 Secondary NOT GIVENUNK [place] Insurance:SELF PAY [facility] Number: Effective Repository Date:2018-04-29 04/29/2018 SHAYAN Jerome Primary SHAYAN [place] [id number] Insurance:MYCARE CRSC THOMPSONDOB: Community MURALI RUN *IN [facility] [id number] Number: Repository [id number]: 330 [id number] [phone] () Date:2038-97-26YMDB CLAIMS DEPTPO [address] [address]UH: 04/29/2018 Secondary NOT GIVENUNK [place] Insurance:SELF PAY [facility] Number: Effective Repository Date:2018-04-29 04/29/2018 SHAYAN Jerome Primary SHAYAN [id number] Insurance:MYCARE CRSC THOMPSONDOB: Community MURALI RUN *IN [facility] 2521-29-07[place]USE[place] Number: Repository [id number]: 330 [id number] [phone] (HP) Date:2045-11-10GCUN CLAIMS DEPTPO [address] [place] [address]XL: 04/29/2018 Secondary NOT GIVENUNK [place] Insurance:SELF PAY [facility] Number: Effective Repository Date:2018-04-29 04/29/2018 SHAYAN Jerome Primary SHAYAN [place] [id number] Insurance:[facility]CARE [facility] THOMPSONDOB: [facility] MURALI RUN *IN [facility] [id number] Number: Repository [id number]: 330 [id number] [phone] () Date:2700-34-35DYMN CLAIMS DEPTPO [address] [place] [address]CK: 04/29/2018 Secondary NOT GIVENUNK [place] Insurance:SELF PAY [facility] Number: Effective Repository Date:2018-04-29 04/03/2018 SHAYAN Jerome Primary SHAYAN [place] [id number] Insurance:[facility] THOMPSONDOB: [facility] RUN *IN [facility] [id number] Number: Repository [address]Qog: [phone] [id number] [phone] () Date:9235-48-78VDBK CLAIMS DEPTPO [address] [place] [address]ZG: 04/03/2018 Secondary NOT GIVENUNK [place] Insurance:SELF PAY [facility] Number: Effective Repository Date:2018-04-03 02/21/2018 SHAYAN Jerome Primary SHAYAN Clancy [facility] THOMPSONDOB: Insurance:MEDICARE A THOMPSONDOB: [facility] [id number] AND BPolicy Number: [id number] Repository [facility] [id number] Date: [address]Zvn: () 02/21/2018 Secondary SHAYAN Clancy [facility] Insurance:[place] THOMPSONDOB: [facility] [id number] Repository Number: [id number] Date: 02/04/2018 SHAYAN Jerome Primary SHAYAN [place] [id number] Insurance:CARESOURCEP THOMPSONDOB: [facility] Number: [id number] [place], [place] [id number] Repository [address]Roq: (330) Date:2017-08-02P O [phone] (HP) [address]ATTN: [place] [address]PN: 02/04/2018 Secondary NOT GIVENUNK [place] Insurance:SELF PAY [facility] Number: Effective Repository Date:2017-08-02 12/06/2017 SHAYAN Jerome Primary SHAYAN Lopez THOMPSONDOB: Insurance:MEDICARE A THOMPSONDOB: Health System AND BPolicy Number: [id number] Repository [place] [id number] [place] Date: [address]Mmi: (HP) 12/06/2017 Secondary SHAYAN Lopez Insurance:[place] THOMPSONDOB: Health System MEDICAIDPolicy [id number] Repository Number: [id number] Date: 11/29/2017 SHAYAN Jerome Primary SHAYAN Lopez THOMPSONDOB: Insurance:CAR[employer]OURCE THOMPSONDOB: Health System MEDICAIDPolicy [id number] Repository [place] Number: [facility] CENTERNAILANEW [place] [id number] [address]Cje: (330) Date: [id number] (HP) 11/08/2017 SHAYAN Jerome Primary SHAYAN Lopez THOMPSONDOB: Insurance:MEDICARE A THOMPSONDOB: Health System AND BPolicy Number: [id number] Repository [place] [id number] [place] Date: [id number]: (HP) 10/04/2017 SHAYAN Jerome Primary SHAYAN Clancy [facility] THOMPSONDOB: Insurance:CARESOURCE THOMPSONDOB: Health System MEDICAIDPolicy [id number] Repository MURALI Number: [place]ANEW [place], [place] [id number] [address]Yvk: (330) Date: [id number] (HP) 09/13/2017 SHAYAN Clancy [facility] THOMPSONDOB: Insurance[facility] [id number] MEDICAIDPolicy [id number] [facility] Number: CONSTANTINO FISHER [id number] [id number]: (330) Date: ()
== END ==
PROVIDERS: Family Provider Internal Medicine; PCP Internal Medicine; Referring Provider Nurse Practitioner Family; Visit Provider Nurse Practitioner Family
DX: R06.09 Other forms of dyspnea (principal); I25.10 Atherosclerotic heart disease of native coronary artery without angina pectoris; Z95.1 Presence of aortocoronary bypass graft; I65.23 Occlusion and stenosis of bilateral carotid arteries; I10 Essential (primary) hypertension
CPT/HCPCS: 36415; 71046; 80048; 83880; 85025

== ENCOUNTER 2018-09-08 19:22 | Emergency (ER) | payer MEDICARE, SELFPAY ==
[2018-08-21 11:41] VITALS: BMI 28.2
[2018-09-08 19:24] VITALS: BP 125/72; PULSE 97; RESP 18; TEMP 36.9; O2SAT 93; BMI 28.9
--- NOTE | 2018-09-08 19:37 | EKG12_ITS ---
Test Reason : CP Blood Pressure : / mmHG Vent. Rate : 098 BPM Atrial Rate : 098 BPM P-R Int : 150 ms QRS Dur : 086 ms QT Int : 344 ms P-R-T Axes : 045 024 068 degrees QTc Int : 439 ms Normal sinus rhythm Nonspecific ST and T wave abnormality Abnormal ECG Confirmed by LISSETTE HANNA, DELFINA ([id number]), newspaper editor managing JORDEN CORRAL ([id number]) on 09/10/2018 2:03:18 PM Referred By: CARLIN Confirmed By:DELFINA MCLAUGHLIN MD
--- NOTE | 2018-09-08 19:38 | RAD_ITS ---
HISTORY: CHEST PAIN, LEFT SIDED ARM AND ABDOMEN PAIN WITH NAUSEAHX OF CABGx4, CAROTID SURGERIES RECENTY EXAM: XR Chest 1 View: COMPARISON: 08/21/18 CXR. FINDINGS: # of images incl. paperwork: 1 LINES/DEVICES: None. LUNGS: Radiographically clear. No consolidation, edema or effusion. No pneumothorax. Emphysematous changes are noted. MEDIASTINUM AND CARDIOVASCULAR STRUCTURES: Cardiac silhouette not enlarged. Central airways and mediastinal contour are unremarkable. Sternotomy wires and mediastinal surgical clips again demonstrated. As before, the upper 2 and most inferior sternotomy wires are discontiguous. BONES AND SOFT TISSUES: No acute findings. Several surgical clips in the upper abdomen again demonstrated. RAD/Chest 1 View (Portable) IMPRESSION: COPD. No radiographic evidence of acute cardiopulmonary disease. at 1952 Reported and signed by: Dimas Patel MD Electronically Signed: Dimas Patel, at 19:51 EST Tel , Service support ,
[2018-09-08 20:24] VITALS: BP 151/110; PULSE 90; RESP 20; TEMP 36.9; O2SAT 94
[2018-09-08 20:36] LABS: Absolute Lymphocyte Count 0.95 X10^3/ul (0.83-4.51); Absolute Neutrophil Count 10.2 X10^3/uL (2.0-7.7); Basophil# 0.03 X10^3/uL; Basophil% 0.2 % (0-1); Eosinophil# 0.13 X10^3/uL; Eosinophils% 1.1 % (0-5); Hematocrit 42.2 % (40-54); Lymphocyte # 0.95 X10^3/ul (4.0); Lymphocyte % 7.9 % (19-41); Mean Corp Hgb Conc 33.2 g/gl (32-36); Mean Corpuscular Hgb 32.9 pg (27.0-32.0); Mean Corpuscular Volume 99.3 fL (80-94); Mean Platelet Vol. 9.3 fl (6.2-12.0); Monocyte# 0.75 X10^3/uL; Monocyte% 6.2 % (0-10); Neutrophil # 10.15 X10^3/uL (2.7-7.7); Neutrophil % 84.4 % (47-70); Platelet Count 198 K/mm3 (150-450); RBC Distribution Width CV 14.4 % (11.6-14.6); RBC Distribution Width SD 51.9 fl (35.1-43.9); Red Blood Count 4.25 M/mm3 (4.6-6.2)
[2018-09-08 20:40] LABS: POSITIVE COUNT NO; POSITIVE DIFFERENTIAL NO; POSITIVE MORPHOLOGY NO
[2018-09-08 21:03] LABS: Anion Gap 5 (5-15); BUN 10 mg/dL (7-18); BUN/Creat Ratio 9.4 RATIO (10-20); Calcium,Total 8.8 mg/dL (8.5-10.1); Chloride 111 mmol/L (98-107); Creatinine, Serum 1.06 mg/dL (0.70-1.30); EST Glomerular Filtration Rate 74 mL/min (>60); Est Glom Filt Rate - Afr Amer 90 mL/min (>60); Estimated Creatinine Clearance 76.26 ml/min; Glucose 105 mg/dL (74-106); Potassium 3.5 mmol/L (3.5-5.1); Sodium Level 141 mmol/L (136-145)
[2018-09-08 21:13] VITALS: BP 163/109; PULSE 92; RESP 18; O2SAT 96
--- NOTE | 2018-09-08 21:20 | CT_ITS ---
HISTORY: LEFT SIDE ABD PAIN, CP, SOB, LEFT HAND WEAKNESS, DIZZINESS X 1 WEEK, HX GASTRIC BANDING WITH SMALL BOWEL RESECTION 40 YEARS AGO, CHF, PR, THROAT CA TECHNIQUE: Helically acquired images were obtained of the abdomen and pelvis following IV contrast. A radiation dose optimization technique was used for this scan. IV Contrast dosage and agent: 100 cc Isovue-300 Oral contrast: None. COMPARISON: 04/29/18 CT abdomen pelvis. FINDINGS: # of images incl. paperwork: 422 LOWER CHEST: No acute findings. Sternotomy wires partially visible. LIVER: No concerning findings. Incidental small cyst right lobe unchanged. GALLBLADDER AND BILIARY TREE: Status post cholecystectomy. Mild dilation of the common bile duct unchanged. KIDNEYS AND URETERS: Incidental cyst lower pole right kidney. No concerning renal mass. No hydronephrosis or renal stones. Ureters nondilated. ADRENAL GLANDS: Non-enlarged. SPLEEN: Normal size without focal cystic or solid mass. PANCREAS: No focal cystic or solid mass. BOWEL: Chronic postsurgical changes of the stomach with suture line and truncated appearance. Again demonstrated is a tract from the distal gastric lumen through the anterior abdominal wall to the skin surface, likely an open tract from previous gastrostomy tube. Supraumbilical wide necked anterior abdominal wall hernia contains several small bowel loops, no associated obstruction. Scattered sigmoid colon diverticula, no diverticulitis. Small bowel anastomoses in the left abdomen and the right abdomen. No inflammatory changes of the bowel. Small bilateral inguinal hernias contain fat but no bowel. LYMPH NODES: No enlarged mesenteric or retroperitoneal lymph nodes. PERITONEUM: No ascites or free air. No other fluid collection. VESSELS: Atherosclerosis. No abdominal aortic aneurysm. URINARY BLADDER: Incompletely distended, otherwise grossly unremarkable. REPRODUCTIVE ORGANS: No pelvic masses or pelvic ascites. BONES: No lytic or blastic abnormality observed. Degenerative changes similar to prior. CT/Abdomen/Pelvis WITH Contrast IMPRESSION: No acute findings, no significant change compared to previous. Extensive chronic postoperative changes of the bowel. 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 Individualized dose optimization techniques were used for this CT. at 0000 Reported and signed by: Dimas Patel MD Electronically Signed: Dimas Patel at 23:59 EST Tel , Service support ,
[2018-09-08] MEDS: Ondansetron 4 MG/2 ML Vial IV (21:25)
[2018-09-08] MEDS: Morphine 4 MG/ML Syringe IV (21:28)
[2018-09-08 21:34] VITALS: BP 155/96
[2018-09-08 21:36] LABS: Lipase 89 U/L (73-393)
[2018-09-08 21:45] LABS: AST(SGOT) 20 U/L (15-37); Alanine Aminotransfer ALT/SGPT 17 U/L (16-61); Albumin, Serum 3.3 g/dL (3.2-5.0); Alkaline Phosphatase 54 U/L (45-117); Globulin 3.2 g/dL (2.2-4.2); Protein, Total 6.5 g/dL (6.4-8.2)
[2018-09-08 22:23] VITALS: BP 137/93; PULSE 98; RESP 20; O2SAT 95
[2018-09-08 22:46] LABS: Bacteria 0 SEEN /hpf (None Seen); Mucous, Urine 0 SEEN /hpf (<or=2+); Red Blood Cells-Urine 0 SEEN /hpf (0-5); White Blood Cells 0 SEEN /hpf (0-5)
[2018-09-08 22:57] LABS: Color, Urine Yellow (Yellow); Glucose, Dipstick Normal (Normal); Ketone-Dipstick 15 mg/dl (Negative); Leukocyte Esterase-Dipstick Negative /ul (Negative); Nitrite-Dipstick Negative (Negative); Occult Blood-Urine Negative /ul (Negative); Protein-Dipstick Negative (Negative); Urine Bilirubin Dipstick Negative (Negative); Urine Clarity Clear (Clear); Urine Urobilinogen Normal (Normal)
[2018-09-08 23:07] LABS: Squamous Epithelial Cells - UA 0-5 SEEN /hpf (0-5)
[2018-09-08 23:43] VITALS: BP 97/84; PULSE 89; RESP 16; O2SAT 92
--- NOTE | 2018-09-09 00:20 | ED.VISSUMM ---
- ER Visit Summary Date of Service: 09/09/18 Chief Complaint: Chest pain and abdominal pain History of Present Illness: The patient is a 67 M who presents with chest and abdominal pain. This is been present for at least 2 months. His pain is sharp. It is worst in the left lower quadrant. He had one episode of diarrhea last week. He reports nausea without vomiting. No shortness of breath. No urinary symptoms. No blood in the stool. No fevers. Physical Examination: Initial blood pressure 151/110 this is improved on reevaluation and vitals otherwise normal Distress resting comfortably Moist mucous membranes Heart regular rate and rhythm Lungs are clear Abdomen soft Patient has diffuse abdominal tenderness but this is greatest in the left lower quadrant he does not have guarding or rebound Alert Test Results: EKG shows sinus rhythm at a rate of 98. Labs notable for white blood cell count 12.0. Chemistries otherwise unremarkable including hepatic function and lipase. Urinalysis is normal. Troponin is negative. Chest x-ray shows no acute disease. CT of the abdomen pelvis shows no acute findings does show a chronic fistulous tract. Emergency Department Course and Treatment: Patient was treated with IV morphine and Zofran. He is resting comfortably on reevaluation. His workup is unremarkable as above. Given chronic symptoms of 2 months and negative workup here I do not believe this is due to acute life-threatening pathology and believe he is safe to follow-up outpatient for further workup. He states that he has been referred by Dr. Mendes to [facility] in regards to abdominal pain, fistula, hernias. He was advised to follow-up as referred. Patient is to return for new or worsening symptoms was instructed on specific signs and symptoms to monitor for. He was given a prescription for short course of analgesics and antiemetics and discharged home. Treatment Plan: [] Disposition: Discharge Impression: Chest pain Abdominal pain This note was generated with [employer] dictation software. It may contain incorrect words, spelling, and punctuation that were not noted in review of the chart prior to signing ED Disposition - Plan for ED Patient: Referrals: Kelley Tolbert MD [Primary Care Provider] -
--- NOTE | 2018-09-09 00:23 | ED.DCSUM_ITS ---
- ER Visit Summary Date of Service: 09/09/18 Chief Complaint: Chest pain and abdominal pain History of Present Illness: The patient is a 67 M who presents with chest and abdominal pain. This is been present for at least 2 months. His pain is sharp. It is worst in the left lower quadrant. He had one episode of diarrhea last week. He reports nausea without vomiting. No shortness of breath. No urinary symptoms. No blood in the stool. No fevers. Physical Examination: Initial blood pressure 151/110 this is improved on reevaluation and vitals otherwise normal Distress resting comfortably Moist mucous membranes Heart regular rate and rhythm Lungs are clear Abdomen soft Patient has diffuse abdominal tenderness but this is greatest in the left lower quadrant he does not have guarding or rebound Alert Test Results: EKG shows sinus rhythm at a rate of 98. Labs notable for white blood cell count 12.0. Chemistries otherwise unremarkable including hepatic function and lipase. Urinalysis is normal. Troponin is negative. Chest x-ray shows no acute disease. CT of the abdomen pelvis shows no acute findings does show a chronic fistulous tract. Emergency Department Course and Treatment: Patient was treated with IV morphine and Zofran. He is resting comfortably on reevaluation. His workup is unremarkable as above. Given chronic symptoms of 2 months and negative workup here I do not believe this is due to acute life-threatening pathology and believe he is safe to follow-up outpatient for further workup. He states that he has been referred by Dr. Mendes to [facility] in regards to abdominal pain, fistul a, hernias. He was advised to follow-up as referred. Patient is to return for new or worsening symptoms was instructed on specific signs and symptoms to monitor for. He was given a prescription for short course of analgesics and antiemetics and discharged home. Treatment Plan: [] Disposition: Discharge Impression: Chest pain Abdominal pain This note was generated with [employer] dictation software. It may contain incorrect words, spelling, and punctuation that were not noted in review of the chart prior to signing ED Disposition - Plan for ED Patient: Referrals: Kelley Tolbert MD [Primary Care Provider] -
--- NOTE | 2018-09-09 00:23 | ED.DEP ---
ED Disposition - Plan for ED Patient: Instructions: ED Chest Pain NonCardiac, ED Abdominal Pain Unkn Cause Male Prescriptions: Hydrocodone Bitart/Apap 5-325 [[place] 5MG-325MG] 1 tab PO Q6H PRN PRN 3 Days #10 tab PRN Reason: Pain Ondansetron [Zofran Odt] 4 mg PO Q8H PRN PRN #10 tab PRN Reason: Nausea Referrals: Kelley Tolbert MD [Primary Care Provider] -
[2018-09-09 00:44] VITALS: BP 122/82; PULSE 88; RESP 14; O2SAT 94
== END 2018-09-09 00:44 | disposition home or self-care (01) ==
PROVIDERS: Emergency Provider Emergency Medicine; Family Provider Internal Medicine; PCP Internal Medicine
DX: R07.9 Chest pain, unspecified (principal); R10.9 Unspecified abdominal pain; R11.0 Nausea; R19.7 Diarrhea, unspecified; I25.10 Atherosclerotic heart disease of native coronary artery without angina pectoris; I10 Essential (primary) hypertension; E78.00 Pure hypercholesterolemia, unspecified; E03.9 Hypothyroidism, unspecified; Z95.1 Presence of aortocoronary bypass graft; Z79.82 Long term (current) use of aspirin; Z79.02 Long term (current) use of antithrombotics/antiplatelets; Z79.899 Other long term (current) drug therapy
CPT/HCPCS: 71045; 74177; 80048; 80076; 81001; 83690; 84484; 85025; 93005; 96374; 96375; 99285; Q9967; A4216; J2405

== ENCOUNTER → 2018-09-17 08:53 | Outpatient (CLI) | payer MEDICARE, SELFPAY ==
[2018-08-21 11:41] VITALS: BMI 28.2
[2018-09-08 19:24] VITALS: BMI 28.9
--- NOTE | 2018-09-17 08:56 | ECHOD_ITS ---
Reason For Study: DYSPNEA/SOB Procedure This was a 2D Doppler, Color Flow transthoracic echocardiogram. Exam performed in department. Left Ventricle Normal LV size. The estimated ejection fraction is 55 %. Stage 1 diastolic dysfunction. No regional wall motion abnormalities noted. Right Ventricle Normal RV size. Normal systolic function. Atria Normal left atrium. Normal right atrium. Mitral Valve Normal mitral valve. Tricuspid Valve Normal tricuspid valve. Aortic Valve Normal aortic valve. Pulmonic Valve Normal pulmonic valve. Great Vessels Normal aortic root. The pulmonary artery is normal size. Normal inferior vena cava. Pericardium/Pleural No pericardial effusion. MMode/2D Measurements & Calculations LVIDd: 4.1 cm IVSd: 1.1 cm Ao root diam: 3.7 cm LVIDs: 2.9 cm LVPWd: 0.76 cm RVDd: 3.0 cm FS: 28.6 % LAV(MOD-bp): 44.0 ml LVAd ap4: 32.3 cm2 SV(MOD-sp4): 53.9 ml LAV(MOD-bp) Indexed: 20.2 ml/m2 EDV(MOD-sp4): 98.4 ml LAV(MOD-sp2): 47.2 ml EDV(sp4-el): 104.4 ml LAV(MOD-sp4): 37.3 ml LVAs ap4: 19.4 cm2 ESV(MOD-sp4): 44.4 ml ESV(sp4-el): 46.1 ml EF(MOD-sp4): 54.8 % EF(sp4-el): 55.9 % SV(sp4-el): 58.3 ml LA A4 area: 15.3 cm2 LA dimension(2D): 3.2 cm RA A4 area: 14.6 cm2 Time Measurements MV dec time: 0.19 sec Doppler Measurements & Calculations MV E max aaron: 76.1 cm/sec Lat Peak E' Aaron: 12.8 cm/sec Med Peak E' Aaron: 8.5 cm/sec MV A max aaron: 102.8 cm/sec E/E' lat: 5.9 E/E' med: 8.9 MV E/A: 0.74 Ao V2 max: 129.4 cm/sec LV V1 max: 116.9 cm/sec PA V2 max: 83.9 cm/sec Ao max P.7 mmHg LV V1 max P.5 mmHg TR max aaron: 268.5 cm/sec TR max P.8 mmHg Interpretation Summary Normal LV size. The estimated ejection fraction is 55 %. Stage 1 diastolic dysfunction. The global longitudinal strain = -16.8 % (normal). The global longitudinal strain is normal. The global longitudinal strain = -16.8 % (normal). Ordering Physician: Jacob Freitas/Terry Dunbar Referring Physician: LAURA GROVE Performed By: Yudi Ruiz RDCS
== END ==
PROVIDERS: Family Provider Internal Medicine; PCP Internal Medicine; Referring Provider Internal Medicine Cardiovascular Disease; Visit Provider Internal Medicine Cardiovascular Disease
DX: I25.10 Atherosclerotic heart disease of native coronary artery without angina pectoris (principal); R06.09 Other forms of dyspnea; Z95.1 Presence of aortocoronary bypass graft; I10 Essential (primary) hypertension; E78.00 Pure hypercholesterolemia, unspecified
CPT/HCPCS: 93306

== ENCOUNTER 2019-04-09 12:58 | Emergency (ER) | payer MEDICARE, SELFPAY ==
[2019-04-09 13:02] VITALS: BP 112/83; PULSE 110; RESP 18; O2SAT 93
[2019-04-09 13:03] VITALS: BP 112/83; PULSE 110; RESP 18; TEMP 35.7; O2SAT 93; BMI 25.4
--- NOTE | 2019-04-09 13:21 | RAD_ITS ---
STUDY: X-RAY CHEST REASON FOR EXAM: Male, 68 years old. Weakness. Left upper quadrant pain. TECHNIQUE: AP and lateral views of the chest. COMPARISON: Comparison is made with prior examination dated September 08, 2018. FINDINGS: EKG electrodes are seen. Stable mild degree of increased markings in the lingular segment of the left upper lobe suggestive of a possible scarring. There is no demonstrated pleural abnormality. Sternal cerclage wires and vascular clips are present from a prior sternotomy and coronary artery bypass graft procedure (CABG). Normal mediastinum and becca. Normal visualized pulmonary arteries. There is atherosclerotic tortuosity of the aortic arch and descending thoracic aorta. Normal visualized thoracic spine. Normal visualized ribs, clavicles, and shoulders. There is no demonstrated abnormality of the visualized soft tissue structures of the upper abdomen. RAD/Chest PA and Lateral IMPRESSION: Mild increased markings in the lingular segment of the left upper lobe suggestive of scarring. Electronically Signed: Mckay Blackwood, at 14:33 EDT , Service support ,
--- NOTE | 2019-04-09 13:21 | CT_ITS ---
STUDY: CT ABDOMEN AND PELVIS WITHOUT CONTRAST REASON FOR EXAM: Male, 68 years old. 7 month history of left upper quadrant pain and weakness. RADIATION DOSAGE (If Supplied By Facility): CTDIvol = ( 11.89 ) mGy, DLP = ( 593.97 ) mGycm TECHNIQUE: Transaxial images were obtained from the dome of the diaphragm to the symphysis pubis without oral contrast, and without intravenous contrast. Sagittal and coronal images were reconstructed. Individualized dose optimization techniques were used for this CT. COMPARISON: Comparison is made with prior study dated September 08, 2018. FINDINGS: The visualized lung bases are unremarkable. Prior CABG. Coronary artery calcification. There is an 8 mm well-defined nodule in the mid upper aspect of the right lobe of liver suggestive of a small cyst. This is unchanged. There are surgical clips in the gallbladder fossa consistent with a prior cholecystectomy. Normal spleen. Normal pancreas. Normal bilateral adrenal glands. Stable 0.6 cm x 3.4 cm cyst in the lateral lower pole of the right kidney. Stable 1 cm hyperdense cyst in the lower pole of the left kidney. There is evidence of prior gastric surgery. Several anastomotic sites are seen within small bowel loops in the right lower and left lower abdomen. The patient is status post right hemicolectomy. Scattered sigmoid diverticula. There are surgical clips in the region of the appendix consistent with a prior appendectomy. Normal abdominal aorta. Normal inferior vena cava. Normal retroperitoneum. Normal urinary bladder. There is a small umbilical hernia containing nondilated small bowel loops. This is unchanged. There are diffuse degenerative changes of the visualized lumbar spine. CT/Abdomen/Pelvis without Cont IMPRESSION: Stable examination. No acute abnormality is seen. Electronically Signed: Mckay Blackwood, at 14:48 EDT , Service support ,
[2019-04-09] MEDS: HYDROmorphone 0.5 MG/0.5 ML SYRINGE IV (13:54)
[2019-04-09] MEDS: Ondansetron 4 MG/2 ML Vial IV (13:54)
[2019-04-09 14:00] LABS: Absolute Lymphocyte Count 1.05 X10^3/uL (0.83-4.51); Absolute Neutrophil Count 8.4 X10^3/uL (2.0-7.7); Basophil# 0.05 X10^3/uL; Basophil% 0.5 % (0-1); Eosinophil# 0.06 X10^3/uL; Eosinophils% 0.6 % (0-5); Hemoglobin 17.8 g/dL (13.0-16.5); Lymphocyte # 1.05 X10^3/ul (4.0); Mean Corp Hgb Conc 34.9 g/dL (32-36); Mean Corpuscular Hgb 34.8 pg (27.0-32.0); Mean Corpuscular Volume 99.6 fL (80-94); Mean Platelet Vol. 10.6 fl (6.2-12.0); Monocyte# 0.84 X10^3/uL; NRBC Flagged by Analyzer 0 % (0-5); Neutrophil # 8.42 X10^3/uL (2.7-7.7); Neutrophil % 80.5 % (47-70); Platelet Count 179 K/mm3 (150-450); RBC Distribution Width CV 13.1 % (11.6-14.6); RBC Distribution Width SD 48.1 fl (35.1-43.9); Red Blood Count 5.12 M/mm3 (4.6-6.2); White Blood Count 10.5 K/mm3 (4.4-11.0)
[2019-04-09 14:18] LABS: Anion Gap 6 (5-15); BUN 30 mg/dL (7-18); BUN/Creat Ratio 17.4 RATIO (10-20); Calcium,Total 9.6 mg/dL (8.5-10.1); Chloride 105 mmol/L (98-107); Creatinine, Serum 1.72 mg/dL (0.70-1.30); EST Glomerular Filtration Rate 42 mL/min (>60); Est Glom Filt Rate - Afr Amer 51 mL/min (>60); Estimated Creatinine Clearance 47.74 ml/min; Glucose 104 mg/dL (74-106); Potassium 5.1 mmol/L (3.5-5.1); Sodium Level 135 mmol/L (136-145)
[2019-04-09] MEDS: Ipratropium/Albuterol Sulfate 3 ML AMPUL.NEB INHALATION (14:27)
[2019-04-09 14:28] VITALS: PULSE 78; RESP 19
[2019-04-09 15:28] VITALS: BP 125/91; PULSE 78; RESP 14; O2SAT 91
[2019-04-09 15:33] LABS: Red Blood Cells-Urine 0 SEEN /hpf (0-5)
[2019-04-09 15:38] LABS: Color, Urine Yellow (Yellow); Glucose, Dipstick Normal (Normal); Ketone-Dipstick 15 mg/dl (Negative); Leukocyte Esterase-Dipstick Negative /ul (Negative); Nitrite-Dipstick Negative (Negative); Occult Blood-Urine Negative /ul (Negative); Protein-Dipstick Negative (Negative); Specific Gravity, Urine 1.015 (1.002-1.030); Urine Bilirubin Dipstick Negative (Negative); Urine Clarity Clear (Clear); Urine Urobilinogen Normal (Normal)
[2019-04-09 15:56] LABS: Bacteria RARE /hpf (None Seen); Mucous, Urine 1+ /hpf (<or=2+); Squamous Epithelial Cells - UA 0-5 SEEN /hpf (0-5); White Blood Cells 0-5 SEEN /hpf (0-5)
--- NOTE | 2019-04-09 16:16 | ED.VISSUMM ---
- ER Visit Summary Date of Service: 04/09/19 Chief Complaint: Abdominal pain History of Present Illness: The patient is a [address] Tolbert. He reports he has left upper quadrant abdominal pain that began yesterday. It is a sharp continuous pain that stated 10 severity. Is worsened by nothing and relieved by Protonix. He had nausea without vomiting. No diarrhea. His last bowel was today. No melena or hematochezia. He reports he has had dysuria for the past 4 years. On review of systems patient reports these had chills. He denies fever. Reports he had a cough productive of clear sputum for the past 2 to 3 months. He denies any chest pain or shortness of breath. Physical Examination: Vitals: Stable. Afebrile. General: Well-nourished and well-developed. Head: Normocephalic atraumatic. Neck: Supple, no lymphadenopathy. No JVD. Nontender. Cardiovascular: Regular rate and rhythm. No murmurs. Respiratory: No respiratory distress. Clear to auscultation bilaterally. Upper airway sounds bilaterally. Abdominal: Soft, mild left upper quadrant tenderness to palpation, nondistended, normal bowel sounds. No guarding, rebound, or peritoneal signs. Back: Nontender. Extremities: Nontender, no edema. Skin: Normal color, no rash. Neurologic: Alert and oriented ?3. Cranial nerves II through XII are intact. Normal strength and sensation. Psych: Normal affect. Test Results: CBC shows a hemoglobin of 17.8, 7 neutrophils 81, lymphocytes of 10. Chem-7 shows a sodium 135, BUN 30, creatinine 1.72. Creatinine is ranging from 1.06 and 1.19 in 2019. UA is negative. Clinical Impression(s) from Imaging Studies Abdomen/Pelvis CT 04/09/19 13:21 IMPRESSION: Stable examination. No acute abnormality is seen. Electronically Signed: Mckay Blackwood, at 14:48 EDT , Service support , Chest X-Ray 04/09/19 13:21 IMPRESSION: Mild increased markings in the lingular segment of the left upper lobe suggestive of scarring. Electronically Signed: Mckay Blackwood, at 14:33 EDT , Service support , Emergency Department Course and Treatment: Patient was given a dose of Dilaudid and Zofran IV. He is resting comfortably. He did not begin to wheeze so was given albuterol and Atrovent aerosols. His blood pressure is slightly low so he is given a liter of normal saline and his nhome dose of fludrocrotisone. Treatment Plan: Patient feels well and would like to go home. He will be discharged with Zofran. Instructed to follow-up with his primary care physician 1 day if not improving. Return to the emergency department for any worsening symptoms. Disposition: To home in improved and stable condition. Impression: 1. Abdominal pain, uncertain cause. 2. Renal insufficiency. 3. URI. This note was generated with [employer] dictation software. It may contain incorrect words, spelling, and punctuation that were not noted in review of the chart prior to signing ED Disposition - Plan for ED Patient: Disposition: Home or Assisted Living Instructions: ABDOMINAL PAIN, Unkown Cause, (Male) Prescriptions: Ondansetron [Zofran Odt] 4 mg PO Q8H PRN PRN #10 tab PRN Reason: Nausea Prescription Printed Referrals: Kelley Tolbert MD [Primary Care Provider] - 1 Day for another exam
[2019-04-09 16:39] VITALS: BP 100/81; PULSE 81; RESP 14; O2SAT 90
[2019-04-09] MEDS: Fludrocortisone Acetate 0.1 MG Tablet PO (16:39)
== END 2019-04-09 16:40 | disposition home or self-care (01) ==
LOC: ED 13:56
PROVIDERS: Emergency Provider Emergency Medicine; Family Provider Internal Medicine; PCP Internal Medicine
DX: R10.12 Left upper quadrant pain (principal); N28.9 Disorder of kidney and ureter, unspecified; J06.9 Acute upper respiratory infection, unspecified; R11.0 Nausea
CPT/HCPCS: 71046; 74176; 80048; 81001; 85025; 94640; 96361; 96374; 96375; 99285; J7030; A4216; J2405

== ENCOUNTER 2019-06-17 13:14 | Inpatient (IN) | payer MEDICARE, SELFPAY ==
[2019-05-07 15:55] VITALS: BMI 26.2
[2019-06-17] VITALS (12 sets, daily range): BP systolic 142–197; BP diastolic 93–145; PULSE 73–93; RESP 15–18; TEMP 36.4–36.7; O2SAT 95–97; BMI 29.6; BMI 27.0
--- NOTE | 2019-06-17 13:33 | RAD_ITS ---
STUDY: X-RAY CHEST REASON FOR EXAM: Male, 68 years old. One-month history of chest pain and shortness of breath. TECHNIQUE: PA and lateral views of the chest. COMPARISON: Comparison is made with prior study dated April 09, 2019. FINDINGS: EKG electrodes are seen. Hyperinflation. Stable increased markings in the lingular segment of the left upper lobe suggestive of scarring. There is no demonstrated pleural abnormality. Sternal cerclage wires and vascular clips are present from a prior sternotomy and coronary artery bypass graft procedure (CABG). Normal mediastinum and becca. Normal visualized pulmonary arteries. There is atherosclerotic tortuosity of the aortic arch and descending thoracic aorta. There are degenerative changes of the visualized thoracic spine. Normal visualized ribs, clavicles, and shoulders. Surgical clips are seen in the upper abdomen. RAD/Chest PA and Lateral IMPRESSION: Hyperinflation. Stable increased markings in the lingular segment of the left upper lobe in keeping with scarring. Electronically Signed: Mckay Blackwood, at 15:20 EST , Service support ,
--- NOTE | 2019-06-17 13:37 | ED.VIS.CHEST ---
History of Present Illness Chief Complaint: Shortness of Breath Informant: Patient Onset: Month(s) - 1.5-2 Timing: Continuous Location: Substernal, Left Chest Current Severity: Moderate Maximum Severity: Moderate Worsened By: Nothing Relieved By: Nothing Associated Symptoms: Dyspnea, Cough. Negative for: Nausea, Vomiting, Diaphoresis, Fever, Lightheadedness, Palpitations Narrative: Patient states he has 2 different chest pains. 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 He has a history of CABG. His last stress test was 08/2017, heart cath was longer than that. He is compliant with his medications, and until recently. He was prescribed imdur around 3 or 4 weeks ago, states that it is not helping anything and he thinks it may be making him feel worse since he has this new pressure-like chest pain on the left side only, so he stopped it 4 days ago. No changes in any of his symptoms since then. He indicates that he seems to get a lot of the discomfort at night, it may be worse when he lies down. Is a very poor historian, he is very angry, he is yelling at me about most of his symptoms and gets very frustrated when I attempt to ask details about his symptoms, telling me that I am making him mad and he wants to leave, but he is redirectable. He spent a lot of time telling me his opinions of the doctors who have seen him as an outpatient. - Past Medical History (1) Atherosclerosis of [place] coronary artery of [place] heart without angina pectoris Status: Chronic Comment: CABG 2012; NSTEMI 08/31/2014; (2) Bilateral carotid artery stenosis Status: Chronic (3) Essential hypertension Status: Chronic (4) History of coronary artery bypass graft Status: Chronic Comment: LEVINE-LAD, SVG to diag and LCx. SVG to PDA of RCA 02/26/2013 @ [facility]; (5) Hyperlipidemia Status: Chronic (6) Orthostatic hypotension Status: Chronic Past Medical History - Allergies and Home Meds Allergies/Adverse Reactions: Allergies ranolazine [From Ranexa] Adverse Reaction (Intermediate, Verified 06/01/19 08:49) wake up at night feeling like choking ciprofloxacin [From Cipro] Adverse Reaction (Verified 05/07/19 16:00) Vomiting ciprofloxacin HCl [From Cipro] Adverse Reaction (Verified 05/07/19 16:00) Vomiting metronidazole [From Flagyl] Adverse Reaction (Verified 05/07/19 16:00) Vomiting morphine Adverse Reaction (Verified 05/07/19 16:00) after 2-3 days I turn into a monster ofloxacin [From Floxin] Adverse Reaction (Verified 05/07/19 16:00) Vomiting Primary Care Physician: Kelley Tolbert MD [Primary Care Provider] - Surgical History: cholecystectomy, coronary bypass surgery, - - cholecystectomy, appendectomy, H&N surgery for tonsillar cancer, bilat carotid stenting Lives: Spouse/ Significant Other Smoking Status: Never smoker Drugs: None - Family History Maternal Family History: Family History (Last Reviewed 05/07/19 @ 16:35 by Terry Dunbar MD) Mother CAD (coronary artery disease) Lung cancer Father Cancer Brother Diabetes Hypertension Alcoholism Family History: Reports: No pertinent history Review of Systems General: Reports: Malaise. Denies: Chills, Fever, Sweats Eyes: Denies: Visual changes - bilaterally, Diplopia ENT: Denies: Rhinorrhea, Sore throat Cardiovascular: Reports: Chest pain. Denies: Palpitations Respiratory: Reports: Dyspnea, Cough. Denies: Sputum, Dyspnea on exertion, Orthopnea Gastrointestinal: Denies: Abdominal pain, Nausea, Vomiting, Diarrhea, Melena, Hematochezia Genitourinary: Denies: Dysuria, Hematuria, Frequency Musculoskeletal: Reports: Myalgias, Extremity Pain - claudication in calves x >1yr; no pain at rest. Denies: Swelling Skin: Denies: Rash, Wounds Neurological: Denies: Headache, Weakness, Numbness Physical Exam Vital Signs/Narrative: Vital Signs Temp Pulse Resp BP Pulse Ox 06/17/19 13:15 97.5 F L 92 17 150/93 H 96 Inital Vital Signs reviewed: Yes General: Well nourished, Well developed, No Acute Distress Head: Normocephalic, Atraumatic Eyes: Perrl, EOMI ENT: Moist mucous membranes, No rhinorrhea Neck: Supple, Nontender, No JVD Cardiovascular: Regular rate, Regular rhythm, No murmurs Respiratory: No distress, CTA bilaterally, Chest nontender Abdomen: Soft, Nontender, Nondistended, Normal bowel sounds Back: Nontender, Normal Inspection Extremities: Nontender, No edema. Negative for: Calf Tenderness Skin: Normal color, No rash, No Trauma Neurological: Alert, Oriented x3, Cranial nerves II-XII grossly intact, Normal Strength, Normal Sensation, Normal Gait Psychological: Normal affect, Agitated - emotionally. cooperative. Diagnostic/Tx/Re-eval Impressions Chest X-Ray 06/17/19 13:33 IMPRESSION: Hyperinflation. Stable increased markings in the lingular segment of the left upper lobe in keeping with scarring. Electronically Signed: Mckay Yasmeenediapril, at 15:20 EST , Service support , 06/17/19 13:33 Chest PA and Lateral [RAD] Stat Laboratory Results 06/17/19 06/17/19 13:50 13:50 WBC 8.5 RBC 4.20 L Hgb 14.1 Hct 42.5 MCV 101.2 H MCH 33.6 H MCHC 33.2 RDW Std Deviation 51.1 H RDW Coeff of Bharath 13.8 Plt Count 180 MPV 10.0 Immature Gran % (Auto) 0.200 Neut % (Auto) 81.6 H Lymph % (Auto) 9.2 L Mckinley % (Auto) 7.7 Eos % (Auto) 0.8 Baso % (Auto) 0.5 Absolute Neuts (auto) 6.9 Absolute Lymphs (auto) 0.78 L Nucleated RBC % 0 Sodium 144 Potassium 3.4 L Chloride 108 H Carbon Dioxide 29.0 Anion Gap 7 BUN 13 Creatinine 1.10 Estim Creat Clear Calc 72.51 Est GFR (MDRD) Af Amer 86 Est GFR (MDRD) Non-Af 71 BUN/Creatinine Ratio 11.8 Glucose 116 H Calcium 8.9 Troponin I 0.390 H - Rhythm Strip Rhythm Strip: Sinus Rhythm Rate: 90 Ectopy: None - EKG Initial EKG Interpretation: Sinus Rhythm, No Acute Injury Pattern, Non-Specific ST Changes - diffuse; no ST seg elev/dep Prior: Changed - only nonspecific T-wave changes Treatment: Aspirin, NTG SL, GI Cocktail - no change - Medical Decision Making Since patient has been having pain for over a month,. And states it is worse at night, we tried a GI cocktail first. It did not help anything. His EKG shows nonspecific T wave abnormalities without ST elevation or depressions, and his troponin came back elevated at 0.36. Therefore he will be given aspirin and nitroglycerin and reevaluated, plan is for admission. Discussed with Dr. Joyce who agrees with Lovenox and probably heart cath tomorrow. I did confirm that the patient has been compliant with his aspirin and Plavix, he last took his Plavix this morning. Therefore we do not need to load him at this time. He is getting nitroglycerin for his persistent chest discomfort, he is clinically stable and conversive and well-appearing. Discussed with hospitalist for PCU admission. ED Disposition - Plan for ED Patient: Disposition: Acute Care Hospital [facility] Diagnosis: Unstable angina Referrals: Kelley Tolbert MD [Primary Care Provider] -
[2019-06-17 14:00] LABS: Absolute Lymphocyte Count 0.78 X10^3/uL (0.83-4.51); Absolute Neutrophil Count 6.9 X10^3/uL (2.0-7.7); Basophil# 0.04 X10^3/uL; Basophil% 0.5 % (0-1); Eosinophil# 0.07 X10^3/uL; Eosinophils% 0.8 % (0-5); Hematocrit 42.5 % (40-54); Hemoglobin 14.1 g/dL (13.0-16.5); Lymphocyte # 0.78 X10^3/ul (4.0); Lymphocyte % 9.2 % (19-41); Mean Corp Hgb Conc 33.2 g/dL (32-36); Mean Corpuscular Hgb 33.6 pg (27.0-32.0); Mean Corpuscular Volume 101.2 fL (80-94); Monocyte# 0.65 X10^3/uL; Monocyte% 7.7 % (0-10); NRBC Flagged by Analyzer 0 % (0-5); Neutrophil # 6.93 X10^3/uL (2.7-7.7); Neutrophil % 81.6 % (47-70); Platelet Count 180 K/mm3 (150-450); RBC Distribution Width CV 13.8 % (11.6-14.6); RBC Distribution Width SD 51.1 fl (35.1-43.9); White Blood Count 8.5 K/mm3 (4.4-11.0)
[2019-06-17] MEDS: Mag Hydrox/Al Hydrox/Simeth 30 ML UDC PO (14:16)
[2019-06-17 14:17] LABS: Anion Gap 7 (5-15); BUN 13 mg/dL (7-18); BUN/Creat Ratio 11.8 RATIO (10-20); Calcium,Total 8.9 mg/dL (8.5-10.1); Chloride 108 mmol/L (98-107); EST Glomerular Filtration Rate 71 mL/min (>60); Est Glom Filt Rate - Afr Amer 86 mL/min (>60); Estimated Creatinine Clearance 72.51 ml/min; Glucose 116 mg/dL (74-106); Potassium 3.4 mmol/L (3.5-5.1); Sodium Level 144 mmol/L (136-145)
--- NOTE | 2019-06-17 14:57 | EKG12_ITS ---
Test Reason : CP Blood Pressure : / mmHG Vent. Rate : 090 BPM Atrial Rate : 090 BPM P-R Int : 170 ms QRS Dur : 110 ms QT Int : 372 ms P-R-T Axes : 085 074 047 degrees QTc Int : 455 ms Normal sinus rhythm Minimal voltage criteria for LVH, may be normal variant Septal infarct , age undetermined Abnormal ECG Confirmed by RICO HANNA, JOANNE ([id number]), online editor JORDEN CORRAL ([id number]) on 06/23/2019 1:06:42 PM Referred By: JULIANNE Confirmed By:MARY GÓMEZ MD
--- NOTE | 2019-06-17 15:47 | NURSING ---
106 UNSTABLE ANGINA TERELETSKY
[2019-06-17] MEDS: Aspirin 81 MG TAB.CHEW 324 MG PO (16:08)
[2019-06-17] MEDS: Enoxaparin 100 MG/ML Syringe SC (16:08)
[2019-06-17] MEDS: Nitroglycerin SL (ED/IMG/CATH) 0.4 MG TABLET SUBLINGUAL ×2 (16:08→16:23)
--- NOTE | 2019-06-17 16:29 | CON.PCM_ITS ---
Problem List (1) Unstable angina Status: Acute (2) Chest pain Status: Acute (3) Atherosclerosis of [place] coronary artery of [place] heart without angina pectoris Status: Chronic Comment: CABG 2012; NSTEMI 08/31/2014; (4) Hyperlipidemia Status: Chronic Qualifiers: Hyperlipidemia type: pure hypercholesterolemia Qualified Code(s): E78.00 - Pure hypercholesterolemia, unspecified; E78.0 - Pure hypercholesterolemia Reason for Consult Date of Consultation: 06/17/19 Reason for Consultation: Chest pain, unstable angina, hypertension, hypercholesterolemia, coronary disease status post CABG, non-STEMI History of Present Illness: The patient is a 68 year old M, patient of Dr. Higuera, with a history of laryngeal cancer status post radiation with possible subsequent blood pressure regulation challenges, coronary artery disease status post four-vessel bypass surgery at [facility] approximately 5 years ago after new onset substernal chest heaviness and pressure. Patient completed cardiac rehab and has not had a heart heart catheterization since that time. According to the patient had a fed some difficulty regulating his blood pressure where we go quite high and then go very low in the evening. About 3 weeks ago he discontinued his Toprol-XL 50 mg p.o. twice daily and his blood pressure has been climbing ever since. In addition the patient has had intermittent compliance with his baby aspirin, although he states that he has been compliant with his Plavix. Patient states that last evening he developed midsternal chest pain which was dissimilar from his previous angina that he experienced 5 years ago prior to his bypass as well as constant dull left upper chest pain aching. In addition he complained of dyspnea on exertion and shortness of breath and his blood pressure at home was quite elevated. Patient sought medical attention in the emergency room where his blood pressure was found to be in the 190s over 130s. Patient was initially given sublingual nitroglycerin with minimal improvement of his blood pressure. His EKG showed normal sinus rhythm with nonspecific ST and T wave changes. He is currently heme dynamically stable, awake, and answers all questions. Currently is having substernal chest pain, but it is improving with nitroglycerin. Initial troponin was 0.390. Chest x-ray is negative. [] Past Medical History Allergies/Adverse Reactions: Allergies ranolazine [From Ranexa] Adverse Reaction (Intermediate, Verified 06/01/19 08:49) wake up at night feeling like choking ciprofloxacin [From Cipro] Adverse Reaction (Verified 05/07/19 16:00) Vomiting ciprofloxacin HCl [From Cipro] Adverse Reaction (Verified 05/07/19 16:00) Vomiting metronidazole [From Flagyl] Adverse Reaction (Verified 05/07/19 16:00) Vomiting morphine Adverse Reaction (Verified 05/07/19 16:00) after 2-3 days I turn into a monster ofloxacin [From Floxin] Adverse Reaction (Verified 05/07/19 16:00) Vomiting Home Medications: Ambulatory Orders Medication Instructions Recorded Clopidogrel Bisulfate [Plavix] 75 mg PO DAILY 10/12/15 fludrocortisone 0.1 mg tablet 0.1 mg PO TID #90 tab 02/02/19 albuterol sulfate HFA 90 2 puff INHALATION Q4H PRN g 05/05/19 mcg/actuation aerosol inhaler fluticasone propionate 50 2 spray INTRANASAL DAILY 05/05/19 mcg/actuation nasal spray,suspension levothyroxine 100 mcg tablet 100 mcg PO DAILY 05/05/19 prednisone 10 mg tablet 10 mg PO DAILY 05/05/19 sucralfate 1 gram tablet 1 g PO 4X/DAY tab 05/05/19 isosorbide mononitrate ER 30 mg 30 mg PO DAILY #30 tab 06/01/19 tablet,extended release 24 hr Aspirin E.C. [Ecotrin] 81 mg PO DAILY@0800 06/17/19 Atorvastatin Calcium [Lipitor] 20 mg PO DAILY 06/17/19 Guaifenesin [Mucinex] 1,200 mg PO Q12H 06/17/19 Multivitamin with Minerals 1 tab PO DAILY 06/17/19 [Multiple Vitamin] Pantoprazole Sodium [Protonix] 20 mg PO BID 06/17/19 Potassium Chloride [K-Dur] 20 mg PO BID 06/17/19 Ranolazine [Ranolazine ER] 500 mg PO BID PRN PRN 06/17/19 Sertraline HCl [Zoloft] 50 mg PO DAILY 06/17/19 Past Medical History (Chronic Problems): Chronic Problems (Last Reviewed 05/07/19 @ 16:35 by Terry Dunbar MD) Essential hypertension (Chronic) Dyspnea on exertion (Chronic) Atherosclerosis of [place] coronary artery of [place] heart without angina pectoris (Chronic) CABG 2012; NSTEMI 08/31/2014; Syncope (Chronic) Bilateral carotid artery stenosis (Chronic) Hyperlipidemia (Chronic) History of coronary artery bypass graft (Chronic 02/26/15) LEVINE-LAD, SVG to diag and LCx. SVG to PDA of RCA 02/26/2013 @ [facility]; Orthostatic hypotension (Chronic) Surgical History: cholecystectomy, coronary bypass surgery, - - cholecystectomy, appendectomy, H&N surgery for tonsillar cancer, bilat carotid stenting - *Family History Maternal Family History: Family History (Last Reviewed 05/07/19 @ 16:35 by Terry Dunbar MD) Mother CAD (coronary artery disease) Lung cancer Father Cancer Brother Diabetes Hypertension Alcoholism History Items: No pertinent history Lives: Spouse/ Significant Other Smoking Status: Never smoker Drugs: None Review of Systems - Review of Systems General: Denies: Fever, Night Sweats, Fatigue Cardiovascular: Reports: Chest Discomfort, Chest Discomfort at Rest, Shortness of Breath, Shortness of Breath at Rest. Denies: Orthopnea, PND, Peripheral Edema, Palpitations, Lightheadedness, Dizziness, Near Syncope, Syncope Respiratory: Denies: Cough, Sputum Production, Hemoptysis Gastrointestinal: Denies: Hematemesis, Hematochezia, Melena Genitourinary: Denies: Dysuria, Hematuria Skin: Denies: Rash Subjectve: Patient laying in bed, no acute distress. Objective: Vital Signs Temp Pulse Resp BP Pulse Ox 97.5 F L 93 15 190/122 H 95 06/17/19 13:15 06/17/19 16:23 06/17/19 15:12 06/17/19 16:23 06/17/19 15:12 Oxygen Delivery Method Room Air Weight: 218 lb 11.177 oz Body Mass Index (BMI) 29.6 Finger Stick Blood Glucose 104 General: Awake, Alert, Oriented x 3 HEENT: PERRL, EOMI, Sclera Non Icteric Neck: Supple, Good ROM, No Lymph Node Enlargement Lungs: Clear to auscultation Cardiovascular: Regular Rhythm, Normal S1, Normal S2, No Murmurs, No Rubs, No Gallops 06/17/19 13:50: WBC 8.5, RBC 4.20 L, Hgb 14.1, Hct 42.5, MCV 101.2 H, MCH 33.6 H , MCHC 33.2, Plt Count 180, MPV 10.0, Immature Gran % (Auto) 0.200, Neut % (Auto) 81.6 H, Lymph % (Auto) 9.2 L, [place] % (Auto) 7.7, Eos % (Auto) 0.8, Baso % (Auto) 0.5, Absolute Neuts (auto) 6.9, Nucleated RBC % 0 06/17/19 13:50: Sodium 144, Potassium 3.4 L, Chloride 108 H, Carbon Dioxide 29.0, Anion Gap 7, BUN 13, Creatinine 1.10, Est GFR (MDRD) Af Amer 86, Est GFR (MDRD) Non-Af 71, BUN/Creatinine Ratio 11.8, Glucose 116 H, Calcium 8.9, Troponin I 0.390 H Rhythm: EKG: As above ECHO: From 09/17/2018 Normal LV size. The estimated ejection fraction is 55 %. Stage 1 diastolic dysfunction. The global longitudinal strain = -16.8 % (normal). The global longitudinal strain is normal. The global longitudinal strain = -16.8 % (normal). Stress Test: Cardiac Cath: Pending PCI: CT Surgery: Holter monitor: EPS: PPM: CXR: Chest CT Scan: Assessment/Plan 1. Coronary artery disease: The patient presents with atypical, nonexertional substernal chest pain superimposed on uncontrolled hypertension and poor medical compliance due to episodes of hypotension in the evening when taking his Toprol-XL 50 mg p.o. twice daily. Patient has known history of coronary disease and underwent four-vessel bypass surgery approximately 5 years ago. The pain upon presentation is dissimilar from his previous angina but he has associated shortness of breath. In addition he had an a recent non-walking nuclear stress test which was negative for inducible ischemia in 2018. His most recent echocardiogram in September 2018 showed normal LV size and function. Patient's initial troponin is 0.390, and given the constellation of his symptoms, risk factors, chest pain, and previous bypass surgery 5 years ago I recommend the patient undergo reloading with aspirin 325 mg x 1 now followed by reloading with Plavix 300 mg x 1 followed by 75 mg a day, and that he undergo a diagnostic left heart catheterization with graft angiography tomorrow morning. It is possible the patient's abnormal troponin is solely related to uncontrolled hypertension. However if he requires intervention we may proceed with that as well. In addition I recommend sublingual nitroglycerin series x3 followed by nitroglycerin paste 1 inch every 6 hours. In addition he will undergo Lovenox 1 mg/kg subcu twice daily for acute coronary syndrome. If he responds to nitroglycerin it does not bother him on his pressure would recommend nitroglycerin paste 1 inch every 6 hours. In addition patient has coronary disease and requires beta-nish therapy however he appears to have episodes of hypotension and possibly syncope with low blood pressure which is quite labile possibly related to his previous radiation to his carotid area after his throat cancer. Would recommend Coreg 3.125 mg p.o. twice daily starting this evening and titrating up from there. 2. Hyperlipidemia: Recommend obtaining a fasting lipid profile. Continue Lipitor. 3. Thank you very much for the opportunity to participate in the cardiac care of your patient. Consultation took place between 4 PM and 4:37 PM.
[2019-06-17] MEDS: Metoprolol Tartrate 5 MG/5 ML Vial IV (16:30)
[2019-06-17] MEDS: Nitroglycerin Oint 1 INCH PACKET TRANSDERM. (16:37)
--- NOTE | 2019-06-17 17:56 | HP.PCM_ITS ---
Problem List (1) Unstable angina Status: Acute (2) Chest pain Status: Acute (3) Essential hypertension Status: Chronic (4) Dyspnea on exertion Status: Chronic (5) Atherosclerosis of [place] coronary artery of [place] heart without angina pectoris Status: Chronic Comment: CABG 2012; NSTEMI 08/31/2014; (6) Syncope Status: Chronic (7) Bilateral carotid artery stenosis Status: Chronic (8) Hyperlipidemia Status: Chronic Qualifiers: Hyperlipidemia type: pure hypercholesterolemia Qualified Code(s): E78.00 - Pure hypercholesterolemia, unspecified; E78.0 - Pure hypercholesterolemia (9) History of coronary artery bypass graft Status: Chronic Comment: LEVINE-LAD, SVG to diag and LCx. SVG to PDA of [facility] 02/26/2013 @ [facility]; (10) Orthostatic hypotension Status: Chronic History of Present Illness Date of Admission: 06/17/19 Chief Complaint: Chest pain. The patient is a 68 year old M who presents to the emergency room due to chest pain. Patient reports he has had intermittent chest pain for the past month, worse when he is active or gets mad. He reports the episodes last approximately half hour and then resolved without any intervention. He reports associated shortness of breath and dizziness. He states his blood pressure is labile at home and typically is low in the morning and then rises throughout the day. Patient has a history of CABG, he follows with Dr. Dunbar. He denies chest pain currently. Pain does not radiate. He also reports his blood pressure is typically high during episodes of chest pain. Past Medical History Past Medical History (Chronic Problems): Chronic Problems (Last Reviewed 05/07/19 @ 16:35 by Terry Dunbar MD) Essential hypertension (Chronic) Dyspnea on exertion (Chronic) Atherosclerosis of [place] coronary artery of [place] heart without angina pectoris (Chronic) CABG 2012; NSTEMI 08/31/2014; Syncope (Chronic) Bilateral carotid artery stenosis (Chronic) Hyperlipidemia (Chronic) History of coronary artery bypass graft (Chronic 02/26/15) LEVINE-LAD, SVG to diag and LCx. SVG to PDA of RCA 02/26/2013 @ [facility]; Orthostatic hypotension (Chronic) Medical History: Medical History (Last Reviewed 05/07/19 @ 16:35 by Terry Dunbar MD) Essential hypertension (Chronic) I10 Dyspnea on exertion (Chronic) R06.09 Atherosclerosis of [place] coronary artery of [place] heart without angina pectoris (Chronic) I25.10 CABG 2012; NSTEMI 08/31/2014; Syncope (Chronic) R55 Bilateral carotid artery stenosis (Chronic) I65.23 Hyperlipidemia (Chronic) E78.5 Orthostatic hypotension (Chronic) I95.1 Adrenal insufficiency E27.40 Asthma J45.909 BPH (benign prostatic hyperplasia) N40.0 COPD (chronic obstructive pulmonary disease) J44.9 Depression F32.9 Fatigue R53.83 GERD (gastroesophageal reflux disease) K21.9 Generalized weakness R53.1 History of vertebral artery stenosis Z86.79 left Hypothyroidism E03.9 History of stroke Z86.73 Hypokalemia (Resolved) E87.6 Hypophosphatemia (Resolved) E83.39 Hypoxemia (Resolved) R09.02 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 and treated with surgery, radiation and cis-platinin Non compliance w medication regimen (Inactive) Z91.14 Allergies ranolazine [From Ranexa] Adverse Reaction (Intermediate, Verified 06/01/19 08:49) wake up at night feeling like choking ciprofloxacin [From Cipro] Adverse Reaction (Verified 05/07/19 16:00) Vomiting ciprofloxacin HCl [From Cipro] Adverse Reaction (Verified 05/07/19 16:00) Vomiting metronidazole [From Flagyl] Adverse Reaction (Verified 05/07/19 16:00) Vomiting morphine Adverse Reaction (Verified 05/07/19 16:00) after 2-3 days I turn into a monster ofloxacin [From Floxin] Adverse Reaction (Verified 05/07/19 16:00) Vomiting Home Medications: Ambulatory Orders Medication Instructions Recorded Clopidogrel Bisulfate [Plavix] 75 mg PO DAILY 10/12/15 fludrocortisone 0.1 mg tablet 0.1 mg PO TID #90 tab 02/02/19 albuterol sulfate HFA 90 2 puff INHALATION Q4H PRN g 05/05/19 mcg/actuation aerosol inhaler fluticasone propionate 50 2 spray INTRANASAL DAILY 05/05/19 mcg/actuation nasal spray,suspension levothyroxine 100 mcg tablet 100 mcg PO DAILY 05/05/19 prednisone 10 mg tablet 10 mg PO DAILY 05/05/19 sucralfate 1 gram tablet 1 g PO 4X/DAY tab 05/05/19 isosorbide mononitrate ER 30 mg 30 mg PO DAILY #30 tab 06/01/19 tablet,extended release 24 hr Aspirin E.C. [Ecotrin] 81 mg PO DAILY@0800 06/17/19 Atorvastatin Calcium [Lipitor] 20 mg PO DAILY 06/17/19 Guaifenesin [Mucinex] 1,200 mg PO Q12H 06/17/19 Multivitamin with Minerals 1 tab PO DAILY 06/17/19 [Multiple Vitamin] Pantoprazole Sodium [Protonix] 20 mg PO BID 06/17/19 Potassium Chloride [K-Dur] 20 mg PO BID 06/17/19 Ranolazine [Ranolazine ER] 500 mg PO BID PRN PRN 06/17/19 Sertraline HCl [Zoloft] 50 mg PO DAILY 06/17/19 Surgical History: Surgical History (Last Reviewed 05/07/19 @ 16:35 by Terry Dunbar MD) History of coronary artery bypass graft (Chronic) Onset Date: 02/26/15 LEVINE-LAD, SVG to diag and LCx. SVG to PDA of RCA 02/26/2013 @ [facility]; History of gastric bypass Z98.890 History of appendectomy Z90.49 History of cholecystectomy Z90.49 Surgical History: cholecystectomy, coronary bypass surgery, - - cholecystectomy, appendectomy, H&N surgery for tonsillar cancer, bilat carotid stenting, gastric bypass, kidney stone removal Psychiatric History: No pertinent psych hx Lives: Spouse/ Significant Other Smoking Status: Never smoker Tobacco Use: Secondhand Alcohol: None Drugs: None - *Family History Maternal Family History: Family History (Last Reviewed 05/07/19 @ 16:35 by Terry Dunbar MD) Mother CAD (coronary artery disease) Lung cancer Father Cancer Brother Diabetes Hypertension Alcoholism Paternal Family History: Family History (Last Reviewed 05/07/19 @ 16:35 by Terry Dunbar MD) Mother CAD (coronary artery disease) Lung cancer Father Cancer Brother Diabetes Hypertension Alcoholism History Items: - - esophageal cancer Review of Systems Constitutional: Denies: Chills, Fever, Weight Change HEENT: Denies: Head Aches, Sinus Congestion, Sinus Drainage Cardiovascular: Denies: Chest Pain, Edema, Light Headedness, Palpitations, Syncope Respiratory: Reports: Cough - Chronic. Denies: Shortness of breath at rest, Sputum production Gastrointestinal: Denies: Abdominal Pain, Nausea, Vomiting Genitourinary: Denies: Dysuria Musculoskeletal: Denies: Joint Pain, Joint Tenderness Skin: Denies: Rash, Wounds Neurological: Denies: Numbness, Tingling, Focal weakness Psychiatric: Denies: Anxiety, Depression, Homicidal Ideations, Suicidal Ideations Hematologic/ Lymphatic: Denies: Easy Bruising, Easy Bleeding VTE Information - Inpt Only VTE Present on Admission: No VTE Mechan Device Prophylaxis: None VTE Pharm Prophylaxis ordered?: Yes Patient Problems: Active and Suspected Problems (Last Reviewed 05/07/19 @ 16:35 by Terry Dunbar MD) Unstable angina (Acute) - Physical Exam Vitals/I&O's: Vital Signs Temp Pulse Resp BP Pulse Ox 98.1 F 73 16 163/103 H 96 06/17/19 17:31 06/17/19 17:55 06/17/19 17:40 06/17/19 17:31 06/17/19 17:31 Oxygen Flow Rate (L/min) 2 Oxygen Delivery Method Nasal Cannula Weight: 199 lb 3.2 oz Body Mass Index (BMI) 27.0 Finger Stick Blood Glucose 104 General: Alert, Oriented x3, Cooperative HEENT: Atraumatic, PERRLA, EOMI, Normocephalic Neck: Supple, No JVD, Negative Carotid Bruits Lungs: Clear to auscultation, Normal air movement Cardiovascular: Regular rate, Regular Rhythm, Normal S1, Normal S2, No murmurs Abdomen: Bowel Sounds Present, Soft, Non Tender Extremities: No clubbing, No cyanosis, No edema, Capillary Refill Less than 3 Seconds Skin: No rashes, No breakdown Musculoskeletal: No Tenderness to Palpation of Joints or Extremities Neurological: Cranial nerves II-XII grossly intact, Neuro grossly intact Psych/Mental Status: Normal Affect, Appropriate Laboratory Results 06/17/19 13:50: WBC 8.5, RBC 4.20 L, Hgb 14.1, Hct 42.5, MCV 101.2 H, MCH 33.6 H , MCHC 33.2, RDW Std Deviation 51.1 H, RDW Coeff of Bhar[place] 13.8, Plt Count 180, MPV 10.0, Immature Gran % (Auto) 0.200, Neut % (Auto) 81.6 H, Lymph % (Auto) 9.2 L, [place] % (Auto) 7.7, Eos % (Auto) 0.8, Baso % (Auto) 0.5, Absolute Neuts (auto) 6.9, Absolute Lymphs (auto) 0.78 L, Nucleated RBC % 0 06/17/19 13:50: Sodium 144, Potassium 3.4 L, Chloride 108 H, Carbon Dioxide 29.0, Anion Gap 7, BUN 13, Creatinine 1.10, Estim Creat Clear Calc 72.51, Est GFR (MDRD) Af Amer 86, Est GFR (MDRD) Non-Af 71, BUN/Creatinine Ratio 11.8, Glucose 116 H, Calcium 8.9, Troponin I 0.390 H Current Medications Aspirin (Ecotrin) 81 mg PO DAILY@0800 [facility] Atorvastatin Calcium (Lipitor) 20 mg PO QHS [facility] Clopidogrel Bisulfate (Plavix) 75 mg PO DAILY [facility] Diphenhydramine HCl (Benadryl) 50 mg PO X1 ONE Stop: 06/18/19 07:01 Fludrocortisone Acetate (Florinef) 0.1 mg PO TIDCM [facility] Fluticasone Propionate (Flonase Nasal [place]) 0 spray NASAL DAILY [facility] Guaifenesin (Mucinex) 1,200 mg PO Q12 [facility] Heparin Sodium (Porcine) (Heparin Na) 5,000 unit SC Q12 [facility] Sodium Chloride () 1,000 mls @ 0 mls/hr IV .Q0M [facility] Levothyroxine Sodium (Synthroid) 100 mcg PO DAILY@0600 [facility] Metoprolol Tartrate (Lopressor (Beta Renee)) 25 mg PO BID [facility] Morphine Sulfate () 4 mg IV Q3H PRN PRN PRN Reason: Pain Score 6-10/10 Pantoprazole Sodium (Protonix) 20 mg PO BID [facility] Potassium Chloride (K-Dur) 20 meq PO BID [facility] Prednisone () 10 mg PO DAILYCM [facility] Ranolazine (Ranexa) 500 mg PO BID PRN PRN PRN Reason: NAUSEA Sertraline HCl (Zoloft) 50 mg PO DAILY [facility] Sodium Chloride () 10 - 40 ml IV UD PRN PRN Reason: SALINE FLUSH Sucralfate (Carafate) 1 gm PO 1HR_ACHS [facility] Assessment/Plan All Active Problems (Last Reviewed 05/07/19 @ 16:35 by Terry Dunbar MD) Unstable angina (Acute) Chest pain (Acute) Angina pectoris (Resolved) Hypokalemia (Resolved) Hypophosphatemia (Resolved) Hypoxemia (Resolved) Lower GI bleed (Resolved) NSTEMI (non-ST elevated myocardial infarction) (Resolved) Tonsillar cancer (Resolved) 1. Chest pain/abnormal troponin, rule out ACS-cardiology consulted. Cycle enzymes. EKG without ST-T changes. Plan for cardiac catheterization in the morning. Continue aspirin, statin, Plavix. 2. CAD with history of CABG x4-continue aspirin, statin, Plavix. Started on beta-renee. 3. Hypertension-elevated on admission. Reports bottoming out with blood pressure medications in the past. Initiated on metoprolol 25 mg twice daily. 4. Hyperlipidemia-continue statin. 5. Carotid artery disease with previous cardiac stents-follows with Dr. Dunbar. Continue aspirin, statin, Plavix, nitrate. 6. Hypothyroidism-continue Synthroid regimen. 7. History of tonsillar cancer-in remission. 8. History of gastric bypass 9. Adrenal insufficiency-on Florinef. 10. Depression-continue sertraline regimen. 11. Orthostatic hypotension-previously on Midrin. DVT prophylaxis-heparin subcu This patient was seen by KRYSTIAN Posadas under the supervision of Dr. Song.
[2019-06-17] MEDS: Atorvastatin Calcium 20 MG Tablet PO (21:53)
[2019-06-17] MEDS: Heparin Injection (Vial) 5,000 UNIT/ML VIAL 5000 UNIT SC (21:53)
[2019-06-17] MEDS: Metoprolol Tartrate 25 MG Tablet PO (21:53)
[2019-06-17] MEDS: Sucralfate 1 GM Tablet PO (21:53)
[2019-06-17] MEDS: guaiFENesin 1,200 MG Tablet 1200 MG PO (21:53)
[2019-06-17] MEDS: Pantoprazole Sodium 20 MG Tablet PO (21:53)
[2019-06-17] MEDS: Ranolazine 500 MG Tablet PO (21:54)
[2019-06-17] MEDS: 0.9% Saline Lock 10 ML Syringe IV (22:00)
[2019-06-17] MEDS: Meclizine 12.5 MG Tablet PO (23:01)
[2019-06-18] VITALS (22 sets, daily range): BP systolic 112–160; BP diastolic 70–112; PULSE 63–77; RESP 15–18; TEMP 36.3–37; O2SAT 89–95
[2019-06-18] MEDS: 0.9% Saline Lock 10 ML Syringe IV ×3 (03:28→18:14)
[2019-06-18] MEDS: Morphine 4 MG/ML Syringe IV (03:28)
[2019-06-18] MEDS: Sucralfate 1 GM Tablet PO ×4 (05:55→20:32)
--- NOTE | 2019-06-18 05:55 | EKG12_ITS ---
Test Reason : AM EKG Blood Pressure : / mmHG Vent. Rate : 067 BPM Atrial Rate : 067 BPM P-R Int : 174 ms QRS Dur : 110 ms QT Int : 446 ms P-R-T Axes : 056 071 058 degrees QTc Int : 471 ms Normal sinus rhythm Nonspecific ST abnormality Abnormal ECG When compared with ECG of 17-JUN-2019 13:34, MANUAL COMPARISON REQUIRED, DATA IS UNCONFIRMED Confirmed by RICO AHNNA, JOANNE ([id number]), commissioning editor JORDEN CORRAL ([id number] on 06/23/2019 1:45:30 PM Referred By: [place] Confirmed By:MARY GÓMEZ MD
[2019-06-18] MEDS: Ranolazine 500 MG Tablet PO ×2 (05:56→20:32)
[2019-06-18] MEDS: Metoprolol Tartrate 25 MG Tablet PO (05:56)
[2019-06-18] MEDS: Levothyroxine 100 MCG Tablet PO (05:56)
[2019-06-18] MEDS: Aspirin E.C. 81 MG Tablet PO (05:58)
[2019-06-18] MEDS: Clopidogrel Bisulfate 75 MG Tablet PO (05:58)
[2019-06-18] MEDS: Ondansetron 4 MG/2 ML Vial IV ×2 (06:46→18:14)
[2019-06-18] MEDS: DiphenhydrAMINE 25 MG Capsule 50 MG PO (06:56)
--- NOTE | 2019-06-18 07:02 | NURSING ---
Report called to CLINTON Beth in [facility].
--- NOTE | 2019-06-18 08:05 | ECHOCS_ITS ---
Reason For Study: S/P CABG Procedure This was a 2D Doppler, Color Flow transthoracic echocardiogram. The study was technically difficult. Contrast injection was performed. Exam performed portable in patient room. Left Ventricle Normal LV size. The estimated ejection fraction is 40 %. Stage 2 diastolic dysfunction. Mid- Inferior: Hypokinetic. Infero-Basal: Hypokinetic. There are regional wall motion abnormalities as specified. Right Ventricle Normal RV size. Normal systolic function. Atria The left atrium is mildly enlarged. Normal right atrium. Mitral Valve Normal mitral valve. Tricuspid Valve Normal tricuspid valve. Aortic Valve The aortic valve is not well visualized. Pulmonic Valve The pulmonic valve is not well visualized. Great Vessels Normal aortic root. The pulmonary artery is normal size. Normal inferior vena cava. Pericardium/Pleural No pericardial effusion. Medication Diluted definity 5.0ml given slow IV push to enhance endocardial definition. MMode/2D Measurements & Calculations LVIDd: 5.4 cm IVSd: 1.1 cm Ao root diam: 3.5 cm LVIDs: 4.2 cm LVPWd: 0.94 cm RVDd: 3.7 cm FS: 22.9 % LAV(MOD-bp): 85.2 ml LA A4 area: 23.7 cm2 LA dimension(2D): 3.8 cm LAV(MOD-bp) Indexed: 40.1 ml/m2 LAV(MOD-sp2): 88.1 ml LAV(MOD-sp4): 81.2 ml RA A4 area: 16.1 cm2 Time Measurements MV dec time: 0.14 sec Doppler Measurements & Calculations MV E max aaron: 103.6 cm/sec Lat Peak E' Aaron: 9.2 cm/sec Med Peak E' Aaron: 7.4 cm/sec MV A max aaron: 58.5 cm/sec E/E' lat: 11.3 E/E' med: 14.0 MV E/A: 1.8 Ao V2 max: 131.6 cm/sec LV V1 max: 84.9 cm/sec PA V2 max: 75.5 cm/sec Ao max P.9 mmHg LV V1 max P.9 mmHg TR max aaron: 240.3 cm/sec TR max P.1 mmHg Interpretation Summary Normal LV size. The estimated ejection fraction is 40 %. There are regional wall motion abnormalities as specified. Stage 2 diastolic dysfunction. Contrast injection was performed. Ordering Physician: Terry Dunbar Referring Physician: Kelley Tolbert Performed By: Ban Jones, CRYSTALCS, RVT
--- NOTE | 2019-06-18 08:15 | PN.CARD_ITS ---
Subjectve: Patient seen and evaluated. Underwent cardiac catheterization Objective: Vital Signs Temp Pulse Resp BP Pulse Ox 98.0 F 77 18 113/76 95 06/18/19 06:50 06/18/19 07:13 06/18/19 06:50 06/18/19 06:50 06/18/19 06:50 Oxygen Flow Rate (L/min) 2 Oxygen Delivery Method Nasal Cannula Weight: 199 lb 3.2 oz Body Mass Index (BMI) 27.0 Finger Stick Blood Glucose 104 Intake and Output for Last 24 Hours 06/16/19 06/17/19 06/18/19 23:59 23:59 23:59 Intake Total 240 / 240 60 / 60 Balance 240 / 240 60 / 60 General: Awake, Alert, Oriented x 3 HEENT: PERRL, EOMI, Sclera Non Icteric Neck: Supple, Good ROM, No Lymph Node Enlargement Lungs: Clear to auscultation Cardiovascular: Regular Rhythm, Normal S1, Normal S2, No Murmurs, No Rubs, No Gallops Vascular: No Carotid Bruits, Normal Femoral Pulses, Normal Radial Pulses, Normal Dorsalis Pedal Pulse, Normal Posterior Tibial Pulses Abdomen: Bowel Sounds Present, Soft, Non Tender, No HSM, No Organomegaly Extremities: No Cyanosis, No Clubbing, No edema Musculoskeletal: No Erythema Skin: No Rashes Lymphatic: No Lymph Node Enlargement Neurological: No Focal Motor or Sensory Deficit Psych/Mental Status: Appropriate 06/17/19 13:50: WBC 8.5, RBC 4.20 L, Hgb 14.1, Hct 42.5, MCV 101.2 H, MCH 33.6 H , MCHC 33.2, Plt Count 180, MPV 10.0, Immature Gran % (Auto) 0.200, Neut % (Auto) 81.6 H, Lymph % (Auto) 9.2 L, [place] % (Auto) 7.7, Eos % (Auto) 0.8, Baso % (Auto) 0.5, Absolute Neuts (auto) 6.9, Nucleated RBC % 0 06/17/19 13:50: Sodium 144, Potassium 3.4 L, Chloride 108 H, Carbon Dioxide 29.0, Anion Gap 7, BUN 13, Creatinine 1.10, Est GFR (MDRD) Af Amer 86, Est GFR (MDRD) Non-Af 71, BUN/Creatinine Ratio 11.8, Glucose 116 H, Calcium 8.9, Troponin I 0.390 H 06/17/19 17:53: Troponin I 0.406 H 06/17/19 20:52: Troponin I 0.435 H Rhythm: EKG: ECHO: Stress Test: Cardiac Cath: PCI: CT Surgery: Holter monitor: EPS: PPM: CXR: Chest CT Scan: Medical Necessity - Tobacco Use Smoking Status: Never smoker Tobacco Use: Secondhand Assessment/Plan 1. Chest pain. Patient underwent cardiac catheterization today which demonstrated the following: Left main coronary artery which is normal. Left anterior descending artery which is totally occluded. Left circumflex artery which appears to be totally occluded. Ramus intermedius with 90% proximal long lesion. Dominant right coronary artery with moderate disease noted in the mid segment and severe distal lung disease. Saphenous vein graft to right coronary artery which is still occluded. Saphenous vein graft to the circumflex artery sequential to the diagonal with the circumflex artery portion occluded and moderate disease noted in the midsegment. An aberrant artery from the right coronary artery feeds the diagonal vessel area. Left internal mammary artery to left anterior descending artery which is patent. Global left ventricular systolic dysfunction with severe hypokinesis of the infe rior basal wall. Estimated ejection fraction 35%. Based on the above angiographic findings I would recommend continued medical therapy and ischemia mediated revascularization if necessary. 2. Hypertension * Pressures noted throughout the catheterization were normal. * Would recommend Coreg 6.25 mg twice a day * 3. Hyperlipidemia * Continue aggressive medical therapy * And has known diffuse atherosclerotic disease involving the carotid system, and subclavian system. * Thank you for allowing me to participate in the care of your patient. Please don't hesitate to call if any issues arise
--- NOTE | 2019-06-18 08:32 | CL.D_ITS ---
Patient Name: SHAYAN ROSENTHAL Study Date: 06/18/2019 Performing: Terry Dunbar MD Ht: 72.04 inches 183 cm : 1950 Wt: 198.42 lbs 90 kg Age: 68 Gender: male BSA: 2.12 PROCEDURE(S) PERFORMED [id number]/LV/CABG CLINICAL PROFILE AND INDICATIONS Indications: Worsening Angina, Other Heart Failure: None Stress/Imaging Stress/Image Study Performed: No CAD Presentations: Unstable angina. CONCLUSIONS Diffuse coronary artery disease with stenosis noted in the [place] ramus intermedius, moderate disease noted in the right coronary artery and severe disease noted in the distal right coronary artery and moderate disease noted in the saphenous vein graft to the diagonal vessel. RECOMMENDATIONS Medical therapy DESCRIPTION OF PROCEDURE The patient arrived to the procedure lab. The risks and benefits of the procedure as well as a full d escription of our services here and current unavailability of surgical backup were fully explained to the patient and/or their significant other prior to the catheterization. The Timeout was completed, verifying the correct patient and procedure. The patient's procedural site was prepped and draped in the usual fashion. Local anesthetic was given subcutaneously to right groin region with Lidocaine 2%. Using a modified Seldinger technique, arterial access was obtained via the right femoral artery, a 5 Fr sheath was inserted. Left Coronary Artery selective angiography was performed in multiple views u sing a 5 Fr. JL4 catheter. Right Coronary Artery selective angiography was then performed in multiple views using a 5 Fr. 3DRC (Lemuel) catheter. Saphenous Vein graft to the DIAG 1 selective angiograp hy was performed in multiple views using a 5 Fr. 3DRC (Lemuel) catheter. Left internal mammary artery graft to the LAD selective angiography was performed in multiple views using a 5 Fr. 3 DRC (Lemuel) catheter. Saphenous Vein graft to the DIAG 1 selective angiography was performed in mu ltiple views using a 5 Fr. AR MOD catheter. Left Ventriculography was performed in GASPAR projection usi ng a 5 Fr. Pigtail catheter. LV to AO pullback pressures were then recorded. Saphenous Vein graft to the DIAG 1 selective angiography was performed in multiple views using a 5 Fr. JR 4 catheter.The maynor rial sheath was pulled and manual compression applied until hemostasis is achieved. 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 COLLATERAL FLOW: Collateral flow from Right to Left COMPLICATIONS No Complications PROCEDURE MEDICATIONS Versed 1 mg IV Oxygen: 2 L/min via nasal cannula SUMMARY OF HEMODYNAMIC DATA Time AIR REST ECG 07:19:55 AO 125/72 (93) SA 07:37:29 LV 122/7, 22 07:53:51 LV 124/5, 21 07:53:59 LV 122/9, 24 07:55:07 LVp 124/7, 24 07:55:14 AOp 136/74 (100) 07:55:19 Signed By Terry Dunbar MD On 06/18/2019 8:32:04 AM Terry Dunbar MD
--- NOTE | 2019-06-18 09:29 | PN_ITS ---
Patient Problems: Active and Suspected Problems (Last Updated 06/18/19 @ 10:46 by Иван Graham MD) Unstable angina (Acute) Subjective: Chief complaint: Follow-up after admission for chest pain/angina pectoris/abnormal troponin. Patient seen and examined. No acute events overnight. He just came back from cardiac catheterization. He denies any more chest pain. Denies shortness of breath. His vital signs are stable. - Physical Exam Vitals/I&O's: Vital Signs Temp Pulse Resp BP Pulse Ox 97.8 F 65 16 120/85 H 94 06/18/19 09:05 06/18/19 09:20 06/18/19 09:20 06/18/19 09:20 06/18/19 09:20 Oxygen Flow Rate (L/min) 2 Oxygen Delivery Method Nasal Cannula Weight: 199 lb 3.2 oz Body Mass Index (BMI) 27.0 Finger Stick Blood Glucose 104 Intake and Output for Last 24 Hours 06/16/19 06/17/19 06/18/19 23:59 23:59 23:59 Intake Total 240 / 240 60 / 60 Balance 240 / 240 60 / 60 General: Alert, Oriented x3, Cooperative, No apparent distress HEENT: Atraumatic, PERRLA, EOMI, Normocephalic Oral: Moist Mucosa, No Gingival or Mucosal Lesions/ Ulcerations Neck: Supple, No JVD, Negative Carotid Bruits, Trachea Midline, Thyroid Normal Size and Texture Lungs: Clear to auscultation, Normal air movement, No rhonchi, No wheeze, No rales, Diminished Cardiovascular: Regular rate, Regular Rhythm, Normal S1, Normal S2, PMI Normal Abdomen: Bowel Sounds Present, Soft, Non Tender, Non-Distended, No Hepato- splenomegaly Extremities: No clubbing, No cyanosis, No edema Skin: No rashes, No breakdown Lymphatic: No Cervical, Supraclavicular, or Inguinal Adenopathy Neurological: Cranial nerves II-XII grossly intact, Motor Exam 5/5 strength throughout Psych/Mental Status: Normal Affect, Appropriate, Alert and oriented to time, place, person, mood and affect Laboratory Results 06/17/19 13:50: WBC 8.5, RBC 4.20 L, Hgb 14.1, Hct 42.5, MCV 101.2 H, MCH 33.6 H , MCHC 33.2, RDW Std Deviation 51.1 H, RDW Coeff of Bharath 13.8, Plt Count 180, MPV 10.0, Immature Gran % (Auto) 0.200, Neut % (Auto) 81.6 H, Lymph % (Auto) 9.2 L, [place] % (Auto) 7.7, Eos % (Auto) 0.8, Baso % (Auto) 0.5, Absolute Neuts (auto) 6.9, Absolute Lymphs (auto) 0.78 L, Nucleated RBC % 0 06/17/19 13:50: Sodium 144, Potassium 3.4 L, Chloride 108 H, Carbon Dioxide 29 .0, Anion Gap 7, BUN 13, Creatinine 1.10, Estim Creat Clear Calc 72.51, Est GFR (MDRD) Af Amer 86, Est GFR (MDRD) Non-Af 71, BUN/Creatinine Ratio 11.8, Glucose 116 H, Calcium 8.9, Troponin I 0.390 H 06/17/19 17:53: Troponin I 0.406 H 06/17/19 20:52: Troponin I 0.435 H Current Medications Albuterol Sulfate (Ventolin Aerosols) 2.5 mg INHALATION Q6HWA.RT PRN PRN Reason: SHORTNESS OF BREATH Aspirin (Ecotrin) 81 mg PO DAILY@0800 [facility] Last Admin: 06/18/19 05:58 Dose: 81 mg Documented by: Atorvastatin Calcium (Lipitor) 20 mg PO QHS [facility] Last Admin: 06/17/19 21:53 Dose: 20 mg Documented by: Carvedilol (Coreg) 6.25 mg PO BID [facility] Clopidogrel Bisulfate (Plavix) 75 mg PO DAILY [facility] Last Admin: 06/18/19 05:58 Dose: 75 mg Documented by: Fludrocortisone Acetate (Florinef) 0.1 mg PO TIDCM [facility] Last Admin: 06/17/19 18:08 Dose: Not Given Documented by: Fluticasone Propionate (Flonase Nasal [place]) 0 spray NASAL DAILY [facility] Guaifenesin (Mucinex) 1,200 mg PO Q12 [facility] Last Admin: 06/17/19 21:53 Dose: 1,200 mg Documented by: Heparin Sodium (Beef Lung) (Heparin 500 Unit/5 Ml (100/Ml)) 500 unit IV UD PRN PRN Reason: HEPARIN FLUSH Heparin Sodium (Porcine) (Heparin Na) 5,000 unit SC Q12 [facility] Last Admin: 06/17/19 21:53 Dose: 5,000 unit Documented by: Sodium Chloride () 1,000 mls @ 0 mls/hr IV .Q0M [facility] Labetalol HCl (Trandate) 5 mg IV X1 PRN PRN Reason: SBP > 160 prior to sheath pull Stop: 06/20/19 08:12 Levothyroxine Sodium (Synthroid) 100 mcg PO DAILY@0600 [facility] Last Admin: 06/18/19 05:56 Dose: 100 mcg Documented by: Meclizine HCl (Antivert) 12.5 mg PO BID PRN PRN PRN Reason: DIZZINESS Last Admin: 06/17/19 23:01 Dose: 12.5 mg Documented by: Morphine Sulfate () 4 mg IV Q3H PRN PRN PRN Reason: Pain Score 6-10/10 Last Admin: 06/18/19 03:28 Dose: 4 mg Documented by: Ondansetron HCl (Zofran) 4 mg IV Q6H PRN PRN PRN Reason: NAUSEA Last Admin: 06/18/19 06:46 Dose: 4 mg Documented by: Pantoprazole Sodium (Protonix) 20 mg PO BID [facility] Last Admin: 06/17/19 21:53 Dose: 20 mg Documented by: Potassium Chloride (K-Dur) 20 meq PO BID [facility] Last Admin: 06/18/19 05:56 Dose: 20 meq Documented by: Prednisone () 10 mg PO DAILYCM [facility] Ranolazine (Ranexa) 500 mg PO BID [facility] Last Admin: 06/18/19 05:56 Dose: 500 mg Documented by: Sertraline HCl (Zoloft) 50 mg PO DAILY [facility] Sodium Chloride () 10 - 40 ml IV UD PRN PRN Reason: SALINE FLUSH Last Admin: 06/18/19 06:46 Dose: 10 ml Documented by: Sucralfate (Carafate) 1 gm PO 1HR_ACHS [facility] Last Admin: 06/18/19 05:55 Dose: 1 gm Documented by: Medical Necessity - Tobacco Use Smoking Status: Never smoker Tobacco Use: Secondhand Assessment/Plan All Active Problems (Last Updated 06/18/19 @ 10:46 by Иван Graham MD) Unstable angina (Acute) This is a 68 years old male patient presented to the emergency room because of chest pain or shortness of breath, found to have abnormal troponin and the symptoms was probably due to unstable angina underwent cardiac catheterization. #1 chest pain/abnormal troponin/unstable angina: Status post cardiac catheterization that revealed diffuse coronary artery disease with stenosis noted in the [place] ramus intermedius, moderate disease in the RCA and severe disease in the distal RCA, moderate disease in the saphenous graft to the diagonal branch. No interventions performed and medical therapy recommended. Patient has no more chest pain. His vital signs are stable. EKG revealed no acute ischemic changes. He is on aspirin, Plavix, statins, Coreg, Ranexa. Cardiology on the case. 2D echocardiogram ordered. Plan to continue same treatment, anticipate discharge home tomorrow. #2 CAD status post CABG: Heart cath findings as noted above, plan for medical treatment. Continue aspirin, statins, beta-blockers, Plavix and Ranexa. #3 hypertension: Blood pressure stable, continue Coreg #4 hypothyroidism:. Stable, continue levothyroxine. #5 chronic renal insufficiency: Vitals are maintained, continue Florinef and prednisone. #6 hyperlipidemia: Continue statins. #7 carotid artery stenosis: Status post stents, stable, continue aspirin, statins, Plavix. #8 depression: Continue Zoloft. #9 DVT prophylaxis: Subcu heparin. This note was generated with [employer] dictation software. It may contain incorrect words, spelling, and punctuation that were not noted in checking the note before signing. Code Visit Inpatient E&M: 75407 Subs Hosp L2
[2019-06-18] MEDS: Fluticasone 0.05% 1 SPRAY NASAL.SRY NASAL (11:03)
[2019-06-18] MEDS: Carvedilol 6.25 MG Tablet PO ×2 (11:03→20:33)
[2019-06-18] MEDS: predniSONE 10 MG Tablet PO (11:03)
[2019-06-18] MEDS: Sertraline 50 MG Tablet PO (11:04)
[2019-06-18] MEDS: guaiFENesin 1,200 MG Tablet 1200 MG PO ×2 (11:04→20:32)
[2019-06-18] MEDS: Pantoprazole Sodium 20 MG Tablet PO ×2 (11:04→20:32)
--- NOTE | 2019-06-18 11:33 | CASEMGMT ---
CLINTON GREY assessment: Face to Face with patient for initial transition planning/care coordination assessment. CLINTON GREY introduced self and role at [facility], pt voices understanding and consents to assessment at this time. Pt is lying in bed in no distress at this time. Pt is A/Ox4 at this time and answers all questions appropriately at this time. Care providers, pharmacy, and demographics verified at this time. PCP: Tomasz Specialists: greer Murphy; yaritza Quinn [facility]erred Pharmacy: [facility] [place] [facility] [place] Living Will/HPOA: Pt states has LW/HPOA and is aware that they are not on file at [facility] at this time. Pt states his , Shelby Culver, is HPOA. LNOK: Shelby Culver, Living Arrangements: Pt states lives with in 1 story home and states no concerns at home at this time. Pt is independent with ADL's. Transportation: Pt states drives self and states no transportation concerns at this time. DME/HHC: Pt states has a grab bars by back door and states no need for any further DME at this time. Pt states no hx of HHC or SNF. Pt states no concerns with going home at time of discharge. Pt is retired. Pt states does not smoke or drink ETOH. Pt states no further concerns/needs at this time. CM to follow for any further discharge planning/needs. Advised pt to ask for CM if any further questions/concerns/needs arise, voices understanding. Pt Goal: Home Plan: [place] CLINTON GREY
[2019-06-18] MEDS: Fludrocortisone Acetate 0.1 MG Tablet PO (16:32)
--- NOTE | 2019-06-18 16:56 | CHAPLAIN ---
several attempts made for visit but patient was busy or sleeping
[2019-06-18] MEDS: Heparin Injection (Vial) 5,000 UNIT/ML VIAL 5000 UNIT SC (20:31)
[2019-06-18] MEDS: Atorvastatin Calcium 20 MG Tablet PO (20:32)
[2019-06-18] MEDS: Meclizine 12.5 MG Tablet PO (20:36)
[2019-06-19 02:30] VITALS: BP 166/104; PULSE 76; RESP 18; TEMP 36.9; O2SAT 95
--- NOTE | 2019-06-19 02:32 | NURSING ---
Addendum entered by Leatha Bang 06/19/19 02:47: Spoke with pharmacy, who reports that they would needs new order from physician to dispense inhaler. This nurse entered pt's room to talk with him about options for breathing treatment. Pt reports that 'it's cleared' he does not need breathing treatment anymore. Advised pt this nurse just wanted to talk with him about options for the breathing treatment. Pt stated that he didn't need to talk about it anymore, he is going home today and he will just go about his breathing treatments like normal when he gets home. Pt stated that this nurse was upsetting him and should just leave. This nurse left room. CLINTON Medina Original Note: Completed pt's 0230 assessment and VS. Pt's blood pressure elevated, 166/104. Advised pt B/p was a little high, and this nurse would call the physician to see if they wanted to give him any medications. At this point pt stated that he would not take any b/p medications unless Dr. Dunbar was the one telling him to take them. Pt stated that water pills bottom him out and he will not ''whatsoever'' take any b/p meds right now. Pt stated he just wants a breathing treatment. Called RT for breathing treatment. Pt refused nebulized treatment, wants an inhaler. This nurse will call pharmacy to see if they can give pt inhaler. CLINTON Medina
[2019-06-19 03:00] VITALS: PULSE 75
[2019-06-19] MEDS: Ondansetron 4 MG/2 ML Vial IV (04:39)
[2019-06-19] MEDS: Sucralfate 1 GM Tablet PO (06:09)
[2019-06-19] MEDS: Levothyroxine 100 MCG Tablet PO (06:09)
[2019-06-19 07:04] VITALS: PULSE 79
[2019-06-19 08:33] VITALS: BP 127/90; PULSE 80; RESP 18; TEMP 36.8; O2SAT 95
--- NOTE | 2019-06-19 08:35 | PCM.DC ---
- Discharge Diagnoses Current Active Problems: Current Active and Chronic Problems (Last Updated 06/18/19 @ 10:46 by Иван Graham MD) Unstable angina (Acute) You will use the following diet at home:: Cardiac Your food should be the consistency of: Regular Discharge Activity: Return to Normal Activity Weight Bearing Status: Weight bearing as tolerated Call your doctor if you observe: Fever of 101 or Higher, Shortness of breath, Dizziness, Fainting spells, Chest pain, Increased palpitations (irregular heartbeat), Uncontrolled pain Allergies/Adverse Reactions: Allergies ranolazine [From Ranexa] Adverse Reaction (Intermediate, Verified 06/01/19 08:49) wake up at night feeling like choking ciprofloxacin [From Cipro] Adverse Reaction (Verified 05/07/19 16:00) Vomiting ciprofloxacin HCl [From Cipro] Adverse Reaction (Verified 05/07/19 16:00) Vomiting metronidazole [From Flagyl] Adverse Reaction (Verified 05/07/19 16:00) Vomiting morphine Adverse Reaction (Verified 05/07/19 16:00) after 2-3 days I turn into a monster ofloxacin [From Floxin] Adverse Reaction (Verified 05/07/19 16:00) Vomiting Medications to take at Discharge Clopidogrel Bisulfate [Plavix] 75 mg PO DAILY 10/12/15 fludrocortisone 0.1 mg tablet 0.1 mg PO TID #90 tab 02/02/19 albuterol sulfate HFA 90 mcg/actuation aerosol inhaler 2 puff INHALATION Q4H PRN g 05/05/19 fluticasone propionate 50 mcg/actuation nasal spray,suspension 2 spray INTRANASAL DAILY 05/05/19 levothyroxine 100 mcg tablet 100 mcg PO DAILY 05/05/19 prednisone 10 mg tablet 10 mg PO DAILY 05/05/19 sucralfate 1 gram tablet 1 g PO 4X/DAY tab 05/05/19 Aspirin E.C. [Ecotrin] 81 mg PO DAILY@0800 06/17/19 Atorvastatin Calcium [Lipitor] 20 mg PO DAILY 06/17/19 Guaifenesin [Mucinex] 1,200 mg PO Q12H 06/17/19 Meclizine HCl 12.5 mg PO BID 06/17/19 Multivitamin with Minerals [Multiple Vitamin] 1 tab PO DAILY 06/17/19 Pantoprazole Sodium [Protonix] 20 mg PO BID 06/17/19 Potassium Chloride [K-Dur] 20 mg PO BID 06/17/19 Sertraline HCl [Zoloft] 50 mg PO DAILY 06/17/19 Carvedilol [Coreg (Beta Renee)] 6.25 mg PO BID #90 tab 06/19/19 Ranolazine [Ranolazine ER] 500 mg PO BID #0 06/19/19 The following prescriptions were given: Carvedilol [Coreg (Beta Renee)] 6.25 mg PO BID #90 tab Transmission Status: Pending to [id number] Primary Care Physician: Kelley Tolbert MD [Primary Care Provider] - Please follow up with your Primary Care Physician in: 1-2 weeks. Test Results: Test results from this visit will be discussed in further detail at your follow-up appointment, if applicable. Please Follow Up With: Kelley Tolbert MD Please Follow Up With: Terry Dunbar MD When: please call his office.
[2019-06-19] MEDS: Pantoprazole Sodium 20 MG Tablet PO (08:37)
[2019-06-19] MEDS: Ranolazine 500 MG Tablet PO (08:37)
[2019-06-19] MEDS: Clopidogrel Bisulfate 75 MG Tablet PO (08:37)
[2019-06-19] MEDS: Carvedilol 6.25 MG Tablet PO (08:37)
[2019-06-19] MEDS: predniSONE 10 MG Tablet PO (08:37)
[2019-06-19] MEDS: Fludrocortisone Acetate 0.1 MG Tablet PO (08:37)
[2019-06-19] MEDS: Aspirin E.C. 81 MG Tablet PO (08:37)
[2019-06-19] MEDS: guaiFENesin 1,200 MG Tablet 1200 MG PO (08:38)
[2019-06-19] MEDS: Sertraline 50 MG Tablet PO (08:38)
[2019-06-19] MEDS: Fluticasone 0.05% 1 SPRAY NASAL.SRY NASAL (08:38)
--- NOTE | 2019-06-19 11:44 | DS.PCM_ITS ---
Discharge Date and Diagnosis Date of Admission: 06/17/19 Date of Discharge: 06/19/19 - Primary Discharge Diagnosis Chest pain/unstable angina/abnormal troponin, status post cardiac catheterization that revealed diffuse CAD, recommended medical treatment. - Secondary Discharge Diagnosis Chronic Problems (Last Updated 06/18/19 @ 10:46 by Иван Graham MD) Essential hypertension (Chronic) Dyspnea on exertion (Chronic) Atherosclerosis of douglas coronary artery of douglas heart without angina pectoris (Chronic) CABG x 4 LEVINE-LAD, Sequential SVG to D1 and LCx, SVG to RPDA 02/26/2013 Bilateral carotid artery stenosis (Chronic) Hyperlipidemia (Chronic) History of coronary artery bypass graft (Chronic 02/26/13) CABG x 4 LEVINE-LAD, Sequential SVG to D1 and LCx, SVG to RPDA 02/26/2013 Orthostatic hypotension (Chronic) Hospital Course and Treatment Imaging Results: Clinical Impression(s) from Imaging Studies Chest X-Ray 06/17/19 13:33 IMPRESSION: Hyperinflation. Stable increased markings in the lingular segment of the left upper lobe in keeping with scarring. Electronically Signed: Mckay Blackwood, at 15:20 EST , Service support , Dr. Dunbar, cardiology. Operations: None Procedures: 2-D Echocardiogram, Cardiac catheterization, EKG Summary of Care Provided: Patient seen and examined on the day of discharge and appeared to be stable to be discharged home. He denies any more chest pain or shortness of breath. His vital signs are stable. The patient is a 68 year old M patient presented to the emergency room because of chest pain and he was found to have abnormal troponin and his symptoms was concerning for unstable angina. His EKG revealed no evidence of acute ischemic changes, no ST elevation. His troponin was borderline elevated and it was 0.390, 0.406, 0.45. Cardiology consulted and patient underwent cardiac catheterization that revealed diffuse CAD with stenosis in the douglas ramus intermedius, moderate disease in the RCA and severe disease in the distal RCA, moderate disease in the saphenous graft to the diagonal branch, no interventions was performed and medical therapy was recommended by cardiology. Patient was kept on aspirin, Plavix, statins, started on Coreg as well as Ranexa. His other routine blood work was unremarkable. His vital signs were stable throughout admission. 2D echocardiogram revealed normal LV size, ejection fraction was 40% and stage II diastolic dysfunction. Patient discharged home in a stable condition, discharged on Coreg and Ranexa, continued on aspirin, Plavix, statins, continued on his previous home medications without any changes, plan to follow-up with cardiology according to Dr. Dunbar recommendation, recommended follow-up with PCP in 1 to 2 weeks. - Physical Exam Vitals/I&O's: Vital Signs Temp Pulse Resp BP Pulse Ox 98.2 F 80 18 127/90 H 95 06/19/19 08:33 06/19/19 08:33 06/19/19 08:33 06/19/19 08:33 06/19/19 08:33 Oxygen Flow Rate (L/min) 2 Oxygen Delivery Method Room Air Weight: 199 lb 3.2 oz Body Mass Index (BMI) 27.0 Finger Stick Blood Glucose 104 Intake and Output for Last 24 Hours 06/17/19 06/18/19 06/19/19 23:59 23:59 23:59 Intake Total 240 / 240 670 / 670 240 / 240 Output Total 1250 / 1250 200 / 200 Balance 240 / 240 -580 / -580 40 / 40 General: Alert, Oriented x3, Cooperative, No apparent distress HEENT: Atraumatic, PERRLA, EOMI, Normocephalic Oral: Moist Mucosa, No Gingival or Mucosal Lesions/ Ulcerations Neck: Supple, No JVD, Negative Carotid Bruits, Trachea Midline, Thyroid Normal Size and Texture Lungs: Clear to auscultation, Normal air movement, No rhonchi, No wheeze, No rales, Diminished Cardiovascular: Regular rate, Regular Rhythm, Normal S1, Normal S2, PMI Normal Abdomen: Bowel Sounds Present, Soft, Non Tender, Non-Distended, No Hepato- splenomegaly Extremities: No clubbing, No cyanosis, No edema Skin: No rashes, No breakdown Lymphatic: No Cervical, Supraclavicular, or Inguinal Adenopathy Neurological: Cranial nerves II-XII grossly intact, Neuro grossly intact Psych/Mental Status: Normal Affect, Appropriate Discharge Activity: Return to Normal Activity Weight Bearing Status: Weight bearing as tolerated Call your doctor if you observe: Fever of 101 or Higher, Shortness of breath, Dizziness, Fainting spells, Chest pain, Increased palpitations (irregular heartbeat), Uncontrolled pain Home Medications: Medications to take at Discharge Clopidogrel Bisulfate [Plavix] 75 mg PO DAILY 10/12/15 fludrocortisone 0.1 mg tablet 0.1 mg PO TID #90 tab 02/02/19 albuterol sulfate HFA 90 mcg/actuation aerosol inhaler 2 puff INHALATION Q4H PRN g 05/05/19 fluticasone propionate 50 mcg/actuation nasal spray,suspension 2 spray INTRANASAL DAILY 05/05/19 levothyroxine 100 mcg tablet 100 mcg PO DAILY 05/05/19 prednisone 10 mg tablet 10 mg PO DAILY 05/05/19 sucralfate 1 gram tablet 1 g PO 4X/DAY tab 05/05/19 Aspirin E.C. [Ecotrin] 81 mg PO DAILY@0800 06/17/19 Atorvastatin Calcium [Lipitor] 20 mg PO DAILY 06/17/19 Guaifenesin [Mucinex] 1,200 mg PO Q12H 06/17/19 Meclizine HCl 12.5 mg PO BID 06/17/19 Multivitamin with Minerals [Multiple Vitamin] 1 tab PO DAILY 06/17/19 Pantoprazole Sodium [Protonix] 20 mg PO BID 06/17/19 Potassium Chloride [K-Dur] 20 mg PO BID 06/17/19 Sertraline HCl [Zoloft] 50 mg PO DAILY 06/17/19 Carvedilol [Coreg (Beta Renee)] 6.25 mg PO BID #90 tab 06/19/19 Ranolazine [Ranolazine ER] 500 mg PO BID #90 tab.er.12h 06/19/19 Following Prescrptions Were Given to Patient: Carvedilol [Coreg (Beta Renee)] 6.25 mg PO BID #90 tab Transmission Status: Received by [facility] [id number] Ranolazine [Ranolazine ER] 500 mg PO BID #90 tab.er.12h Transmission Status: Received by [facility] [id number] Primary Care Physician: Kelley Tolbert MD [Primary Care Provider] - Please follow up with your Primary Care Physician in: 1-2 weeks. Please Follow Up With: Kelley Tolbert MD Please Follow Up With: Terry Dunbar MD When: please call his office. Disposition: Home Minutes spent on discharge:: 26 Patient Condition:: Stable Medical Necessity - Tobacco Use Smoking Status: Never smoker Tobacco Use: Secondhand Meaningful Use Info Meaningful Use Diagnoses (Choose all that apply): None applicable Code Visit Inpatient E&M: 83005 Disch Hosp
== END 2019-06-19 09:16 | disposition home or self-care (01) | DRG 287 ==
LOC: ED 15:29 → PCU 16:15
PROVIDERS: Admitting Provider Internal Medicine; Emergency Provider Emergency Medicine; Family Provider Internal Medicine; PCP Internal Medicine; Visit Provider Hospitalist
DX: I25.110 Atherosclerotic heart disease of native coronary artery with unstable angina pectoris (principal); E27.40 Unspecified adrenocortical insufficiency; I25.710 Atherosclerosis of autologous vein coronary artery bypass graft(s) with unstable angina pectoris; E03.9 Hypothyroidism, unspecified; F32.9 Major depressive disorder, single episode, unspecified; E78.5 Hyperlipidemia, unspecified; I10 Essential (primary) hypertension; Z77.22 Contact with and (suspected) exposure to environmental tobacco smoke (acute) (chronic); I95.1 Orthostatic hypotension; Z85.818 Personal history of malignant neoplasm of other sites of lip, oral cavity, and pharynx; I25.2 Old myocardial infarction; Z79.02 Long term (current) use of antithrombotics/antiplatelets; Z92.3 Personal history of irradiation; Z95.1 Presence of aortocoronary bypass graft; Z79.82 Long term (current) use of aspirin; Z79.899 Other long term (current) drug therapy; R79.89 Other specified abnormal findings of blood chemistry
CPT/HCPCS: 36415; 71046; 80048; 84484; 85025; 93005; 93306; 93459; 99152; 99153; 99285; J7040; Q9957; Q9967; A4216; C1769; C8929; J2405

== ENCOUNTER 2019-06-30 03:11 | Inpatient (IN) | payer MEDICARE, SELFPAY ==
[2019-06-17 16:10] VITALS: BMI 27.0
[2019-06-30] VITALS (18 sets, daily range): BP systolic 97–171; BP diastolic 62–119; PULSE 64–82; RESP 11–24; TEMP 36.4–37.1; O2SAT 91–97; BMI 28.6; BMI 26.6; BMI 26.7
--- NOTE | 2019-06-30 03:13 | EKG12_ITS ---
Test Reason : REPEAT CP Blood Pressure : / mmHG Vent. Rate : 073 BPM Atrial Rate : 073 BPM P-R Int : 176 ms QRS Dur : 112 ms QT Int : 418 ms P-R-T Axes : 050 067 -30 degrees QTc Int : 460 ms Normal sinus rhythm T wave abnormality, consider inferior ischemia Prolonged QT Abnormal ECG Confirmed by LISSETTE HANNA, DELFINA ([id number]), editor newspaper BRYANT TOLENTINO ([id number]) on 07/01/2019 10:46:27 AM Referred By: ESPERANZA Confirmed By:DELFINA MCLAUGHLIN MD
--- NOTE | 2019-06-30 03:13 | RAD_ITS ---
STUDY: X-RAY CHEST REASON FOR EXAM: Male, 68 years old. Cough, shortness of breath. TECHNIQUE: Single AP portable view of the chest. COMPARISON: 06/17/2019. FINDINGS: The lungs are incompletely distended with fullness of the markings/Chiquis B-lines, new in the interval. There is increased lucency through the mid upper lung haines which may be seen with emphysema/COPD. There is no demonstrated pleural abnormality. Midline sternotomy wires noted. Heart is of normal size. Normal mediastinum and becca. Normal visualized pulmonary arteries. There is atherosclerotic calcification of the aortic arch with tortuosity. Suboptimally visualized thoracic spine. There is degenerative osteoarthritis of the bilateral shoulders. There is no demonstrated abnormality of the visualized soft tissue structures of the upper abdomen. RAD/Chest 1 View (Portable) IMPRESSION: Possible underlying COPD with superimposition of early interstitial edema, clinical correlation recommended. Differential diagnosis includes interstitial pneumonitis. Electronically Signed: Bella Boyce MD at 3:53 EST , Service support ,
--- NOTE | 2019-06-30 03:13 | ED.DCSUM_ITS ---
History of Present Illness Chief Complaint: Shortness of Breath Informant: Patient Onset: Today Context: Sudden Onset Timing: Continuous Current Severity: Moderate Maximum Severity: Moderate Narrative: The patient is a 68-year-old male with medical history significant for prior four-vessel CABG and congestive heart failure who presents to the emergency department with sudden onset dyspnea. Patient states that he woke about 2 in the morning. He states that he was getting up to use the restroom. He states he felt very dizzy and was having chest pressure. Shortly thereafter, he began to be very short of breath. Squad was called. On EMS arrival, the patient's saturation was 92%. Twelve-lead EKG in the field was done which did not show acute ischemia. He was placed on 2 L of nasal cannula and brought in. The patient was recently admitted just about 10 days ago. At that point, he had elevated troponin. He underwent cardiac catheterization which showed diffuse disease, but nothing amenable to stenting. He states he is been compliant with his medications. Prior similar symptoms: Yes Recent Illness/Hospitalization: Yes Past Medical History - Allergies and Home Meds Allergies/Adverse Reactions: Allergies ranolazine [From Ranexa] Adverse Reaction (Intermediate, Verified 06/01/19 08:49) wake up at night feeling like choking ciprofloxacin [From Cipro] Adverse Reaction (Verified 05/07/19 16:00) Vomiting ciprofloxacin HCl [From Cipro] Adverse Reaction (Verified 05/07/19 16:00) Vomiting metronidazole [From Flagyl] Adverse Reaction (Verified 05/07/19 16:00) Vomiting morphine Adverse Reaction (Verified 05/07/19 16:00) after 2-3 days I turn into a monster ofloxacin [From Floxin] Adverse Reaction (Verified 05/07/19 16:00) Vomiting Primary Care Physician: Kelley Tolbert MD [Primary Care Provider] - Prior records reviewed: Yes Past Medical History: - - Prior esophageal carcinoma, coronary vascular disease, CABG, CHF Surgical History: cholecystectomy, coronary bypass surgery, - - cholecystectomy, appendectomy, H&N surgery for tonsillar cancer, bilat carotid stenting, gastric bypass, kidney stone removal Smoking Status: Never smoker - Family History Paternal Family History: Family History (Last Reviewed 05/07/19 @ 16:35 by Terry Dunbar MD) Mother CAD (coronary artery disease) Lung cancer Father Cancer Brother Diabetes Hypertension Alcoholism Family History: Reports: - - esophageal cancer Maternal Family History: Family History (Last Reviewed 05/07/19 @ 16:35 by Terry Dunbar MD) Mother CAD (coronary artery disease) Lung cancer Father Cancer Brother Diabetes Hypertension Alcoholism Family History: Reports: No pertinent history Review of Systems General: Denies: Chills, Fever, Sweats Eyes: Denies: Visual changes - bilaterally, Diplopia ENT: Denies: Rhinorrhea, Sore throat Cardiovascular: Reports: Chest pain. Denies: Palpitations Respiratory: Reports: Dyspnea, Dyspnea on exertion. Denies: Cough Gastrointestinal: Denies: Abdominal pain, Nausea, Vomiting, Diarrhea, Melena, Hematochezia Genitourinary: Denies: Dysuria, Hematuria, Frequency Musculoskeletal: Denies: Back pain, Extremity Pain Skin: Denies: Rash, Wounds Neurological: Denies: Headache, Weakness, Numbness Physical Exam Inital Vital Signs reviewed: Yes General: Well nourished, Well developed, No Acute Distress Head: Normocephalic, Atraumatic Eyes: Perrl, EOMI ENT: Moist mucous membranes, No rhinorrhea Neck: Supple, Nontender Cardiovascular: Regular rate, Regular rhythm, No murmurs Respiratory: No distress, Chest nontender, Rales, Decreased Air Movement Abdomen: Soft, Nontender, Nondistended, Normal bowel sounds Back: Nontender, Normal Inspection Extremities: Nontender, No edema Skin: Normal color, No rash Neurological: Alert, Oriented x3, Cranial nerves II-XII grossly intact, Normal Strength, Normal Sensation Psychological: Normal affect, Normal Mood Diagnostic/Tx/Re-eval Chest X-Ray - ED: 2 View, Normal, Cardiomegaly, CHF, No Infiltrates Clinical Impression(s) from Imaging Studies Chest X-Ray 06/30/19 03:13 IMPRESSION: Possible underlying COPD with superimposition of early interstitial edema, clinical correlation recommended. Differential diagnosis includes interstitial pneumonitis. Electronically Signed: Bella Boyce MD at 3:53 EST , Service support , Abnormal Lab Results 06/30/19 06/30/19 06/30/19 03:20 03:20 03:20 WBC 9.9 RBC 3.83 L Hgb 13.0 Hct 39.2 L MCV 102.3 H MCH 33.9 H MCHC 33.2 RDW Std Deviation 50.4 H RDW Coeff of Bharath 13.5 Plt Count 189 MPV 10.1 Immature Gran % (Auto) 0.300 Neut % (Auto) 77.1 H Lymph % (Auto) 11.2 L [place] % (Auto) 9.0 Eos % (Auto) 2.1 Baso % (Auto) 0.3 Absolute Neuts (auto) 7.7 Absolute Lymphs (auto) 1.11 Nucleated RBC % 0 Sodium 146 H Potassium 3.2 L Chloride 110 H Carbon Dioxide 31.0 Anion Gap 5 BUN 22 H Creatinine 1.04 Estim Creat Clear Calc 76.69 Est GFR (MDRD) Af Amer 92 Est GFR (MDRD) Non-Af 76 BUN/Creatinine Ratio 21.2 H Glucose 108 H Calcium 8.3 L Magnesium 2.1 Troponin I < 0.015 B-Natriuretic Peptide 699.4 H - Rhythm Strip Rhythm Strip: Sinus Rhythm Rate: 60 Ectopy: None - EKG Initial EKG Interpretation: Sinus Rhythm, No Acute Injury Pattern, Non-Specific ST Changes Prior: Unchanged - Medical Decision Making The patient presents to the emergency department for lightheadedness, exertional dyspnea, and chest pain. He does have a significant cardiac history. He was recently admitted, underwent heart cath, but no culprit vessel was able to be isolated. The patient has been compliant with his medications. He does have crackles in both bases and tachypnea. His chest x-ray does show evidence of volume overload. His EKG was unchanged. His cardiac enzymes have normalized. The rest of his lab work was relatively unremarkable except for hypokalemia which was replaced orally. At this point, given the patient's chest pain and new evidence of heart failure, I do feel that he would benefit from admission for diuresis. The patient was discussed with the hospitalist. Impression 1. Chest pain with history of coronary vascular disease 2. Acute CHF exacerbation ED Disposition - Plan for ED Patient: Referrals: Kelley Tolbert MD [Primary Care Provider] -
[2019-06-30] MEDS: Ondansetron 4 MG/2 ML Vial IV (03:22)
[2019-06-30] MEDS: Aspirin 81 MG TAB.CHEW 324 MG PO (03:22)
[2019-06-30 03:28] LABS: Absolute Lymphocyte Count 1.11 X10^3/uL (0.83-4.51); Absolute Neutrophil Count 7.7 X10^3/uL (2.0-7.7); Basophil# 0.03 X10^3/uL; Basophil% 0.3 % (0-1); Eosinophil# 0.21 X10^3/uL; Eosinophils% 2.1 % (0-5); Hematocrit 39.2 % (40-54); Lymphocyte # 1.11 X10^3/ul (4.0); Lymphocyte % 11.2 % (19-41); Mean Corp Hgb Conc 33.2 g/dL (32-36); Mean Corpuscular Hgb 33.9 pg (27.0-32.0); Mean Corpuscular Volume 102.3 fL (80-94); Mean Platelet Vol. 10.1 fl (6.2-12.0); Monocyte# 0.89 X10^3/uL; NRBC Flagged by Analyzer 0 % (0-5); Neutrophil # 7.66 X10^3/uL (2.7-7.7); Neutrophil % 77.1 % (47-70); Platelet Count 189 K/mm3 (150-450); RBC Distribution Width CV 13.5 % (11.6-14.6); RBC Distribution Width SD 50.4 fl (35.1-43.9); Red Blood Count 3.83 M/mm3 (4.6-6.2); White Blood Count 9.9 K/mm3 (4.4-11.0)
[2019-06-30 03:44] LABS: Anion Gap 5 (5-15); BUN 22 mg/dL (7-18); BUN/Creat Ratio 21.2 RATIO (10-20); Calcium,Total 8.3 mg/dL (8.5-10.1); Chloride 110 mmol/L (98-107); Creatinine, Serum 1.04 mg/dL (0.70-1.30); EST Glomerular Filtration Rate 76 mL/min (>60); Est Glom Filt Rate - Afr Amer 92 mL/min (>60); Estimated Creatinine Clearance 76.69 ml/min; Glucose 108 mg/dL (74-106); Magnesium 2.1 mg/dL (1.6-2.6); Potassium 3.2 mmol/L (3.5-5.1); Sodium Level 146 mmol/L (136-145)
[2019-06-30 03:54] LABS: BNP,B-Type NATRIURETIC PEPTIDE 699.4 pg/mL (0-100)
--- NOTE | 2019-06-30 04:01 | HP.PCM_ITS ---
Problem List (1) Acute exacerbation of CHF (congestive heart failure) Status: Acute (2) Vertigo Status: Acute (3) Essential hypertension Status: Chronic (4) Atherosclerosis of [place] coronary artery of [place] heart without angina pec toris Status: Chronic Comment: CABG x 4 LEVINE-LAD, Sequential SVG to D1 and LCx, SVG to RPDA 02/26/2013 (5) Bilateral carotid artery stenosis Status: Chronic Comment: Bilateral carotid artery stenting 2017 (6) Hyperlipidemia Status: Chronic Qualifiers: Hyperlipidemia type: pure hypercholesterolemia Qualified Code(s): E78.00 - Pure hypercholesterolemia, unspecified; E78.0 - Pure hypercholesterolemia (7) History of coronary artery bypass graft Status: Chronic Comment: CABG x 4 LEVINE-LAD, Sequential SVG to D1 and LCx, SVG to RPDA 02/26/2013 (8) Orthostatic hypotension Status: Chronic History of Present Illness Date of Admission: 06/30/19 Chief Complaint: vertigo The patient is a 68 year old M with a significant history of systolic (ejection fraction of 40% on echocardiogram on 06/08/2019) and diastolic dysfunction (stage II diastolic heart failure) heart failure presenting with severe vertigo. Associated with her symptom is nausea without vomiting; blurry vision; and diaphoresis. He has chronic tinnitus and chronic hearing loss which he attributes to being on cisplatin for throat cancer. Further he has mild chest pain. Is BNP at the emergency department was elevated. On room air patient was 92% on his oxygen saturation. He denies any recent upper respiratory infection. Further he has shortness of breath and productive cough. Chronically he is a 3 pillow orthopnea with PND. EKG at the emergency department showed left bundle branch block which was unchanged. Cardiac cath on 06/18/2019 showed diffuse coronary artery disease with stenosis noted in the [place] ramus intermedius, moderate disease noted in the right coronary artery and severe disease noted in the distal right coronary artery and moderate disease noted in the saphenous vein graft to the diagonal vessel. Medical therapy was recommended. Left ventricular ejection fraction was 35% with moderate global hypokinesis. Echocardiogram on 06/08/2019 showed systolic ejection fraction of 40% and stage II diastolic dysfunction. Mitral valve and tricuspid valve were normal. Aortic valve and pulmonary valve could not be visualized. Past Medical History Past Medical History (Chronic Problems): Chronic Problems (Last Reviewed 06/30/19 @ 06:01 by Dez Soto MD) Essential hypertension (Chronic) Atherosclerosis of [place] coronary artery of [place] heart without angina pectoris (Chronic) CABG x 4 LEVINE-LAD, Sequential SVG to D1 and LCx, SVG to RPDA 02/26/2013 Bilateral carotid artery stenosis (Chronic) Bilateral carotid artery stenting 2018 Hyperlipidemia (Chronic) History of coronary artery bypass graft (Chronic 02/26/13) CABG x 4 LEVINE-LAD, Sequential SVG to D1 and LCx, SVG to RPDA 02/26/2013 Orthostatic hypotension (Chronic) Medical History: Medical History (Last Reviewed 06/30/19 @ 07:25 by Dez Soto MD) Essential hypertension (Chronic) I10 Atherosclerosis of [place] coronary artery of [place] heart without angina pectoris (Chronic) I25.10 CABG x 4 LEVINE-LAD, Sequential SVG to D1 and LCx, SVG to RPDA 02/26/2013 Bilateral carotid artery stenosis (Chronic) I65.23 Bilateral carotid artery stenting 2018 Hyperlipidemia (Chronic) E78.5 Orthostatic hypotension (Chronic) I95.1 Adrenal insufficiency E27.40 BPH (benign prostatic hyperplasia) N40.0 COPD (chronic obstructive pulmonary disease) J44.9 Depression F32.9 GERD (gastroesophageal reflux disease) K21.9 History of vertebral artery stenosis Z86.79 left Hypothyroidism E03.9 History of stroke Z86.73 Non compliance w medication regimen (Inactive) Z91.14 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 and treated with surgery, radiation and cis-platinin Allergies ranolazine [From Ranexa] Adverse Reaction (Intermediate, Verified 06/01/19 08:49) wake up at night feeling like choking ciprofloxacin [From Cipro] Adverse Reaction (Verified 05/07/19 16:00) Vomiting ciprofloxacin HCl [From Cipro] Adverse Reaction (Verified 05/07/19 16:00) Vomiting metronidazole [From Flagyl] Adverse Reaction (Verified 05/07/19 16:00) Vomiting morphine Adverse Reaction (Verified 05/07/19 16:00) after 2-3 days I turn into a monster ofloxacin [From Floxin] Adverse Reaction (Verified 05/07/19 16:00) Vomiting Home Medications: Ambulatory Orders Medication Instructions Recorded Clopidogrel Bisulfate [Plavix] 75 mg PO DAILY 10/12/15 albuterol sulfate HFA 90 2 puff INHALATION Q4H PRN g 05/05/19 mcg/actuation aerosol inhaler fluticasone propionate 50 2 spray INTRANASAL DAILY 05/05/19 mcg/actuation nasal spray,suspension levothyroxine 100 mcg tablet 100 mcg PO DAILY 05/05/19 prednisone 10 mg tablet 10 mg PO DAILY 05/05/19 sucralfate 1 gram tablet 1 g PO 4X/DAY tab 05/05/19 Aspirin E.C. [Ecotrin] 81 mg PO DAILY@0800 06/17/19 Atorvastatin Calcium [Lipitor] 20 mg PO DAILY 06/17/19 Guaifenesin [Mucinex] 1,200 mg PO Q12H 06/17/19 Meclizine HCl 12.5 mg PO BID 06/17/19 Multivitamin with Minerals 1 tab PO DAILY 06/17/19 [Multiple Vitamin] Pantoprazole Sodium [Protonix] 20 mg PO BID 06/17/19 Potassium Chloride [K-Dur] 20 mg PO BID 06/17/19 Sertraline HCl [Zoloft] 50 mg PO DAILY 06/17/19 Amlodipine Besylate 5 mg PO DAILY 06/30/19 Carvedilol [Coreg (Beta Renee)] 6.25 mg PO BID 06/30/19 Fludrocortisone Acetate [Florinef] 0.1 mg PO TID 06/30/19 Surgical History: Surgical History (Last Reviewed 06/30/19 @ 07:25 by Dez Soto MD) History of coronary artery bypass graft (Chronic) Onset Date: 02/26/13 CABG x 4 LEVINE-LAD, Sequential SVG to D1 and LCx, SVG to RPDA 02/26/2013 History of gastric bypass Z98.890 History of appendectomy Z90.49 History of cholecystectomy Z90.49 History of left common carotid artery stent placement Onset Date: 2017 Z, Z95.828 History of left heart catheterization Onset Date: 06/18/19 Z98.89 History of right common carotid artery stent placement Onset Date: 2017 Z98, Z95.828 Surgical History: cholecystectomy, coronary bypass surgery, - - cholecystectomy, appendectomy, H&N surgery for tonsillar cancer, bilat carotid stenting, gastric bypass, kidney stone removal Psychiatric History: No pertinent psych hx Lives: With Family Smoking Status: Never smoker Alcohol: None - *Family History Paternal Family History: Family History (Last Reviewed 06/30/19 @ 06:02 by Dez Soto MD) Mother CAD (coronary artery disease) Lung cancer Father Cancer Brother Diabetes Hypertension Alcoholism History Items: - - esophageal cancer Maternal Family History: Family History (Last Reviewed 06/30/19 @ 06:02 by Dez Soto MD) Mother CAD (coronary artery disease) Lung cancer Father Cancer Brother Diabetes Hypertension Alcoholism Review of Systems Constitutional: Denies: Chills, Fever, Weight Change HEENT: Denies: Head Aches, Sinus Congestion, Sinus Drainage Cardiovascular: Reports: Chest Pain. Denies: Palpitations Respiratory: Reports: Cough, Shortness of Breath, Sputum production Gastrointestinal: Denies: Abdominal Pain, Nausea, Vomiting Genitourinary: Denies: Dysuria Musculoskeletal: Denies: Joint Pain, Joint Tenderness Skin: Denies: Rash, Wounds Neurological: Denies: Numbness, Tingling, Focal weakness Psychiatric: Denies: Anxiety, Depression, Homicidal Ideations, Suicidal Ideations Hematologic/ Lymphatic: Denies: Easy Bruising, Easy Bleeding VTE Information - Inpt Only VTE Present on Admission: No VTE Mechan Device Prophylaxis: None VTE Pharm Prophylaxis ordered?: Yes Patient Problems: Active and Suspected Problems (Last Reviewed 06/30/19 @ 06:01 by Dez Soto MD) Acute exacerbation of CHF (congestive heart failure) (Acute) Vertigo (Acute) - Physical Exam Vitals/I&O's: Vital Signs Temp Pulse Resp BP Pulse Ox 97.7 F L 69 24 H 171/119 H 96 06/30/19 03:18 06/30/19 03:18 06/30/19 03:18 06/30/19 03:18 06/30/19 03:18 Oxygen Flow Rate (L/min) 2 Oxygen Delivery Method Nasal Cannula Weight: 95.9 kg Body Mass Index (BMI) 28.6 Finger Stick Blood Glucose 104 General: Alert, Oriented x3, Cooperative HEENT: Atraumatic, PERRLA, EOMI, Normocephalic Neck: Supple, No JVD, Negative Carotid Bruits Lungs: Clear to auscultation, Normal air movement Cardiovascular: Regular rate, No murmurs Abdomen: Bowel Sounds Present, Soft, Non Tender Extremities: No edema, Capillary Refill Less than 3 Seconds Skin: No rashes, No breakdown Musculoskeletal: No Tenderness to Palpation of Joints or Extremities Neurological: Cranial nerves II-XII grossly intact, - - Mary Hallpike maneuver did not show any nystagmus. Psych/Mental Status: Normal Affect, Appropriate Laboratory Results 06/30/19 03:20: WBC 9.9, RBC 3.83 L, Hgb 13.0, Hct 39.2 L, MCV 102.3 H, MCH 33.9 H, MCHC 33.2, RDW Std Deviation 50.4 H, RDW Coeff of Bharath 13.5, Plt Count 189, MPV 10.1, Immature Gran % (Auto) 0.300, Neut % (Auto) 77.1 H, Lymph % (Auto) 11.2 L, [place] % (Auto) 9.0, Eos % (Auto) 2.1, Baso % (Auto) 0.3, Absolute Neuts (auto) 7.7, Absolute Lymphs (auto) 1.11, Nucleated RBC % 0 06/30/19 03:20: Sodium 146 H, Potassium 3.2 L, Chloride 110 H, Carbon Dioxide 31.0, Anion Gap 5, BUN 22 H, Creatinine 1.04, Estim Creat Clear Calc 76.69, Est GFR (MDRD) Af Amer 92, Est GFR (MDRD) Non-Af 76, BUN/Creatinine Ratio 21.2 H, Glucose 108 H, Calcium 8.3 L, Magnesium 2.1, Troponin I < 0.015 06/30/19 03:20: B-Natriuretic Peptide 699.4 H Assessment/Plan All Active Problems (Last Reviewed 06/30/19 @ 06:01 by Dez Soto MD) Acute exacerbation of CHF (congestive heart failure) (Acute) Vertigo (Acute) The patient is a 68 year old M with a significant history of systolic (ejection fraction of 40% on echocardiogram on 06/08/2019) and diastolic dysfunction (stage II diastolic heart failure) heart failure presenting with severe vertigo; shortness of breath; productive cough and noted to have elevated BNP; and chest x-ray findings of possible underlying COPD with superimposition of early interstitial edema. Vertigo This is patient main concern. Mary-Hallpike maneuver was unremarkable. Will get MRI/MRA of head and neck. Patient received meclizine in the emergency department. We will put patient on scheduled meclizine. Will order Compazine as needed since patient has some QT prolongation. Diazepam as needed. Acute exacerbation of systolic and diastolic heart failure Continue patient on guideline directed medical therapy. Received IV at the emergency department. Continue Lasix IV for now. Daily weights. Strict intake and output. 2 g cardiac diet. Supplement potassium. Hypokalemia Supplement potassium Trend BMP Chest Pain On home aspirin; plavix; and Lipitor DVT prophylaxis Subcutaneous Lovenox Code Visit Inpatient E&M: 14628 Init Hosp L3
[2019-06-30] MEDS: Furosemide 40 MG/4 ML Vial IV ×3 (04:18→17:04)
[2019-06-30] MEDS: Meclizine HCl 25 MG Tablet PO ×3 (04:18→13:22)
--- NOTE | 2019-06-30 04:31 | EKG12_ITS ---
Test Reason : SOB Blood Pressure : / mmHG Vent. Rate : 066 BPM Atrial Rate : 066 BPM P-R Int : 178 ms QRS Dur : 114 ms QT Int : 450 ms P-R-T Axes : 053 061 007 degrees QTc Int : 471 ms Normal sinus rhythm Nonspecific T wave abnormality Prolonged QT Abnormal ECG Confirmed by LISSETTE HANNA, DELFINA ([id number]), newspaper copy editor BRYANT TOLENTINO ([id number]) on 07/01/2019 10:46:53 AM Referred By: ESPERANZA Confirmed By:DELFINA MCLAUGHLIN MD
--- NOTE | 2019-06-30 05:12 | MRI_ITS ---
STUDY: MRA OF THE HEAD WITHOUT CONTRAST REASON FOR EXAM: Male, 68 years old. Vertigo TECHNIQUE: 3-D xrgo-yv-wagbzx (TOF) imaging was performed with MIPs. The study was performed unenhanced. COMPARISON: CTA neck 01/03/2017. FINDINGS: Normal bilateral petrous carotid arteries. Normal right cavernous carotid artery with a normal supraclinoid bifurcation. Normal left cavernous carotid artery with a normal supraclinoid bifurcation. Normal right A1 segments of the anterior cerebral artery. Normal left A1 segments of the anterior cerebral artery. Normal intact anterior communicating artery (ACOM). Normal bilateral A2 segments of the anterior cerebral arteries. Normal right M1 and M2 segments of the middle cerebral arteries, with a normal M1 bifurcation. Normal left M1 and M2 segments of the middle cerebral arteries, with a normal M1 bifurcation. Normal right posterior communicating artery (PCOM). Normal left posterior communicating artery (PCOM). Normal right vertebral artery. The left vertebral artery is nonvisualized consistent with known long-standing occlusion. Normal basilar artery with a normal basilar bifurcation. The visualized bilateral superior cerebellar (SCA) arteries are normal. Normal bilateral P1, P2 and visualized P3 segments of the posterior cerebral arteries. There is no demonstrated aneurysm of the [place]. There is no major vessel occlusion or hemodynamically significant stenosis. There is no demonstrated abnormality of the visualized brain. MRI/MRA Head ONLY without Contrast IMPRESSION: The left vertebral artery is nonvisualized consistent with known long-standing occlusion. Otherwise normal MRA of the head Electronically Signed: Blair Gallo, at 11:12 EST Tel , Service support ,
--- NOTE | 2019-06-30 05:12 | MRI_ITS ---
STUDY: MRA NECK WITH AND WITHOUT CONTRAST REASON FOR EXAM: Male, 68 years old. Vertigo, sudden onset dizziness TECHNIQUE: 3-D akju-tf-jbgimj (TOF) imaging was performed in an 1.5 T MRI scanner. IV Dotarem 20 was administered for the contrast enhanced images. COMPARISON: CTA neck 01/03/2017. FINDINGS: RIGHT CAROTID ARTERIES: Normal right common carotid artery (CCA). There is marked focal narrowing of the right carotid bulb which may be due to metallic artifact from adjacent surgical clips. There is likely also right carotid bulb atherosclerotic and nonatheromatous plaque as seen on prior CTA.. There is moderate atherosclerotic plaque formation of the origin and proximal cervical portion of the right internal carotid artery with an estimated stenosis of 50-69% stenosis. The right external carotid artery is not visualized, this may be due to high-grade stenosis or occlusion. LEFT CAROTID ARTERIES: There is marked focal narrowing of the left carotid bulb . There is moderate atherosclerotic plaque formation of the origin of the left internal carotid artery with an estimated stenosis of 50-69% stenosis. Normal visualized cervical portion of the left internal carotid artery. Normal origin of the left external carotid artery (ECA). VERTEBRAL ARTERIES: Normal antegrade flow within the right vertebral artery without a hemodynamically significant stenosis. The left vertebral artery is not visualized. MRI/MRA Neck WITH and W/O Contrast IMPRESSION: 1. There is marked focal narrowing of the right and left carotid bulbs, on the right due to metallic artifact from adjacent surgical clips. 2. There is approximately 50-69% stenosis at the origin of the right and left internal carotid arteries. 3. The right external carotid artery is not visualized which may be due to high-grade stenosis or occlusion. 4. The left vertebral artery is not visualized consistent with occlusion, unchanged since 2017. 5. Neck CTA is recommended for further evaluation. Electronically Signed: Blair Holder, at 10:55 EST Tel , Service support ,
--- NOTE | 2019-06-30 05:12 | MRI_ITS ---
We are attempting to reach an attending provider to discuss findings. An addendum with communication details will be sent when the communication is complete. STUDY: MRI BRAIN WITHOUT CONTRAST REASON FOR EXAM: Male, 68 years old. Vertigo TECHNIQUE: Standardized multiplanar fat and water weighted pulse sequences were obtained. COMPARISON: CT head 12/03/2016. FINDINGS: There is a 3 mm focus of restricted diffusion in the right frontal lobe periventricular white matter and another 3 mm focus of restricted diffusion in the right occipital lobe subcortical white matter. Normal size of the ventricles and extra-axial spaces for the patient's age. There are a limited number of small white matter hyperintensities, distributed throughout the deep white matter tracts of the cerebral hemispheres, consistent with mild chronic white matter ischemic changes. Normal T2* images of the brain without demonstrated susceptibility artifact. There is no demonstrated hemosiderin stain. Normal bilateral basal ganglia. Normal thalami. There is no extra-axial fluid accumulation. Normal flow voids within the major intracranial circulation suggesting patency by spin echo criteria. Normal sella turcica, pituitary gland, infundibular stalk, optic chiasm and hypothalamus. Normal tectal plate and pineal gland. Normal midbrain, joan and medulla. Normal cerebellum. Normal basal cisterns. Normal bilateral temporal bones. Normal bilateral internal auditory canals. No demonstrated orbital abnormality, within the constraints of a routine brain study. Normal visualized paranasal sinuses. Normal calvarium and skull base. Normal visualized soft tissue structures. Normal visualized upper cervical spine. MRI/Brain without Contrast IMPRESSION: 3 mm foci of restricted diffusion in the right frontal lobe periventricular white matter and right occipital lobe subcortical white matter, consistent with small acute infarcts. Involutional changes of the brain, as described above. Electronically Signed: Blair Holder, at 11:30 EST Tel , Service support ,
[2019-06-30] MEDS: Enoxaparin 40 MG/0.4 ML Syringe SC (09:52)
--- NOTE | 2019-06-30 11:52 | ECHOL_ITS ---
Reason For Study: TIA/CVA Procedure This was a limited 2D transthoracic echocardiogram. Exam performed portable in patient room. Left Ventricle Normal LV size. The estimated ejection fraction is 45 %. Infero-Basal: Hypokinetic. Posterior-Basal: Hypokinetic. Basal inferoseptal: Hypokinetic. Right Ventricle Normal RV size. Normal systolic function. Atria The left atrium is mildly enlarged. Normal right atrium. Bubble contrast study negative for right to left interatrial shunt. Mitral Valve Normal mitral valve. Tricuspid Valve Normal tricuspid valve. Aortic Valve Trisinus/trileaflet aortic valve. Mild focal aortic valve calcification. Pulmonic Valve Normal pulmonic valve. Great Vessels Normal aortic root. The pulmonary artery is normal size. Normal inferior vena cava. Pericardium/Pleural No pericardial effusion. Medication Performed a rapid injection of agitated mix of 9 cc saline and 1cc air to assess for atrial septal defect. MMode/2D Measurements & Calculations LVIDd: 5.6 cm IVSd: 0.99 cm LAV(MOD-bp): 75.2 ml LVIDs: 4.5 cm LVPWd: 0.85 cm FS: 18.4 % LAV(MOD-bp) Indexed: 34.8 ml/m2 LAV(MOD-sp2): 71.1 ml LAV(MOD-sp4): 80.5 ml SV(MOD-sp4): 54.8 ml SV(sp4-el): 53.4 ml LVAd ap4: 34.2 cm2 EDV(MOD-sp4): 114.3 ml EDV(sp4-el): 114.5 ml LVAs ap4: 23.2 cm2 ESV(MOD-sp4): 59.4 ml ESV(sp4-el): 61.1 ml EF(MOD-sp4): 48.0 % EF(sp4-el): 46.6 % LA A4 area: 24.2 cm2 RA A4 area: 15.5 cm2 Interpretation Summary The estimated ejection fraction is 45 %. Normal LV size. Infero-Basal: Hypokinetic Posterior-Basal: Hypokinetic Basal inferoseptal: Hypokinetic Mild focal aortic valve calcification. Compared to previous study, the left ventricular systolic function is the same.. Ordering Physician: Macario Song Referring Physician: LAURA GROVE Performed By: Opal Blake, CRISTHIAN, RVT
--- NOTE | 2019-06-30 12:57 | PCM.CONS.GEN ---
Problem List (1) Stroke Status: Acute (2) Vertigo Status: Acute Reason for Consult Date of Consultation: 06/30/19 Reason for Consultation: Dizziness, stroke History of Present Illness: The patient is a 68 year old M with PMH HTN, HLD, history of TIA/stroke, carotid artery stenosis, s/p B/L Carotid artery stenting, left vertebral artery stenosis/occlusion, chronic systolic CHF, CAD status post CABG, history of tonsillar cancer, status post surgery radiation and chemo, hypothyroidism, COPD, chronic vertigo, depression admitted with dizziness and shortness of breath. Per patient he woke up this morning and felt acute onset dizziness, he felt the room was spinning, dizziness was worse than if he moves his head, was wobbly. Per patient he has been on meclizine for chronic vertigo. Per patient he is compliant with aspirin and Plavix at baseline. Per patient he drives, does not use cane or walker to ambulate, denies any frequent falls and does not need assistance for his ADLs. Per patient he follows up with Dr. Nieto for his carotid stenosis. MRI brain done on admission showed small right frontal and right occipital acute infarct, head/neck noted to show chronic left vertebral artery occlusion, bilateral ICA 50 to 69% stenosis. [] Past Medical History Past Medical History (Chronic Problems): Chronic Problems (Last Reviewed 06/30/19 @ 07:25 by Dez Soto MD) Essential hypertension (Chronic) Atherosclerosis of [place] coronary artery of [place] heart without angina pectoris (Chronic) CABG x 4 LEVINE-LAD, Sequential SVG to D1 and LCx, SVG to RPDA 02/26/2013 Bilateral carotid artery stenosis (Chronic) Bilateral carotid artery stenting 2018 Hyperlipidemia (Chronic) History of coronary artery bypass graft (Chronic 02/26/13) CABG x 4 LEVINE-LAD, Sequential SVG to D1 and LCx, SVG to RPDA 02/26/2013 Orthostatic hypotension (Chronic) Medical History: Medical History (Last Reviewed 06/30/19 @ 07:25 by Dez Soto MD) Essential hypertension (Chronic) I10 Atherosclerosis of [place] coronary artery of [place] heart without angina pectoris (Chronic) I25.10 CABG x 4 LEVINE-LAD, Sequential SVG to D1 and LCx, SVG to RPDA 02/26/2013 Bilateral carotid artery stenosis (Chronic) I65.23 Bilateral carotid artery stenting 2018 Hyperlipidemia (Chronic) E78.5 Orthostatic hypotension (Chronic) I95.1 Adrenal insufficiency E27.40 BPH (benign prostatic hyperplasia) N40.0 COPD (chronic obstructive pulmonary disease) J44.9 Depression F32.9 GERD (gastroesophageal reflux disease) K21.9 History of vertebral artery stenosis Z86.79 left Hypothyroidism E03.9 History of stroke Z86.73 Non compliance w medication regimen (Inactive) Z91.14 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 and treated with surgery, radiation and cis-platinin Allergies ranolazine [From Ranexa] Adverse Reaction (Intermediate, Verified 06/01/19 08:49) wake up at night feeling like choking ciprofloxacin [From Cipro] Adverse Reaction (Verified 05/07/19 16:00) Vomiting ciprofloxacin HCl [From Cipro] Adverse Reaction (Verified 05/07/19 16:00) Vomiting metronidazole [From Flagyl] Adverse Reaction (Verified 05/07/19 16:00) Vomiting morphine Adverse Reaction (Verified 05/07/19 16:00) after 2-3 days I turn into a monster ofloxacin [From Floxin] Adverse Reaction (Verified 05/07/19 16:00) Vomiting Home Medications: Ambulatory Orders Medication Instructions Recorded Clopidogrel Bisulfate [Plavix] 75 mg PO DAILY 10/12/15 albuterol sulfate HFA 90 2 puff INHALATION Q4H PRN g 05/05/19 mcg/actuation aerosol inhaler fluticasone propionate 50 2 spray INTRANASAL DAILY 05/05/19 mcg/actuation nasal spray,suspension levothyroxine 100 mcg tablet 100 mcg PO DAILY 05/05/19 prednisone 10 mg tablet 10 mg PO DAILY 05/05/19 sucralfate 1 gram tablet 1 g PO 4X/DAY tab 05/05/19 Aspirin E.C. [Ecotrin] 81 mg PO DAILY@0800 06/17/19 Atorvastatin Calcium [Lipitor] 20 mg PO DAILY 06/17/19 Guaifenesin [Mucinex] 1,200 mg PO Q12H 06/17/19 Meclizine HCl 12.5 mg PO BID 06/17/19 Multivitamin with Minerals 1 tab PO DAILY 06/17/19 [Multiple Vitamin] Pantoprazole Sodium [Protonix] 20 mg PO BID 06/17/19 Potassium Chloride [K-Dur] 20 mg PO BID 06/17/19 Sertraline HCl [Zoloft] 50 mg PO DAILY 06/17/19 Amlodipine Besylate 5 mg PO DAILY 06/30/19 Carvedilol [Coreg (Beta Renee)] 6.25 mg PO BID 06/30/19 Fludrocortisone Acetate [Florinef] 0.1 mg PO TID 06/30/19 Surgical History: Surgical History (Last Reviewed 06/30/19 @ 07:25 by Dez Soto MD) History of coronary artery bypass graft (Chronic) Onset Date: 02/26/13 CABG x 4 LEVINE-LAD, Sequential SVG to D1 and LCx, SVG to RPDA 02/26/2013 History of gastric bypass Z98.890 History of appendectomy Z90.49 History of cholecystectomy Z90.49 History of left common carotid artery stent placement Onset Date: 2017 Z98.890, Z95.828 History of left heart catheterization Onset Date: 06/18/19 Z98.890 History of right common carotid artery stent placement Onset Date: 2017 Z98.890, Z95.828 Surgical History: cholecystectomy, coronary bypass surgery, - - cholecystectomy, appendectomy, H&N surgery for tonsillar cancer, bilat carotid stenting, gastric bypass, kidney stone removal Psychiatric History: No pertinent psych hx Lives: Spouse/ Significant Other Smoking Status: Never smoker Alcohol: None Drugs: None - *Family History Paternal Family History: Family History (Last Reviewed 06/30/19 @ 06:02 by Dez Soto MD) Mother CAD (coronary artery disease) Lung cancer Father Cancer Brother Diabetes Hypertension Alcoholism History Items: - - esophageal cancer Maternal Family History: Family History (Last Reviewed 06/30/19 @ 06:02 by Dez Soto MD) Mother CAD (coronary artery disease) Lung cancer Father Cancer Brother Diabetes Hypertension Alcoholism History Items: No pertinent history Review of Systems Constitutional: Reports: - - Complete ROS negative except as documented in HPI Patient Problems: Active and Suspected Problems (Last Reviewed 06/30/19 @ 07:25 by Dez Soto MD) Acute exacerbation of CHF (congestive heart failure) (Acute) Vertigo (Acute) Stroke (Acute) - Physical Exam Vitals/I&O's: Vital Signs Temp Pulse Resp BP Pulse Ox 97.6 F L 73 16 130/85 H 94 06/30/19 09:48 06/30/19 11:01 06/30/19 09:48 06/30/19 09:48 06/30/19 09:48 Oxygen Flow Rate (L/min) 2 Oxygen Delivery Method Room Air Weight: 91.7 kg Body Mass Index (BMI) 26.6 Finger Stick Blood Glucose 104 Intake and Output for Last 24 Hours 06/28/19 06/29/19 06/30/19 23:59 23:59 23:59 Intake Total 60 / 60 Output Total 2300 / 2300 Balance -2240 / -2240 General: Alert HEENT: Normocephalic Neck: Supple Lungs: Normal air movement Cardiovascular: Normal S1, Normal S2 Abdomen: Bowel Sounds Present Extremities: No cyanosis Neurological: - - Conscious, alert, AOA x3, CN II to XII grossly intact, power 5/5 both upper and lower extremities, plantars B/L flexor, no pronator drift, no sensory loss, no cerebellar signs, gait deferred, reflexes + B/L B/S/T/K/A, No NR, fundus not visualized, NIHSS 0 at present, mRS 0 at baseline Psych/Mental Status: Normal Affect Laboratory Results 06/30/19 03:20: WBC 9.9, RBC 3.83 L, Hgb 13.0, Hct 39.2 L, MCV 102.3 H, MCH 33.9 H, MCHC 33.2, RDW Std Deviation 50.4 H, RDW Coeff of [place] 13.5, Plt Count 189, MPV 10.1, Immature Gran % (Auto) 0.300, Neut % (Auto) 77.1 H, Lymph % (Auto) 11.2 L, [place] % (Auto) 9.0, Eos % (Auto) 2.1, Baso % (Auto) 0.3, Absolute Neuts (auto) 7.7, Absolute Lymphs (auto) 1.11, Nucleated RBC % 0 06/30/19 03:20: Sodium 146 H, Potassium 3.2 L, Chloride 110 H, Carbon Dioxide 31.0, Anion Gap 5, BUN 22 H, Creatinine 1.04, Estim Creat Clear Calc 76.69, Est GFR (MDRD) Af Amer 92, Est GFR (MDRD) Non-Af 76, BUN/Creatinine Ratio 21.2 H, Glucose 108 H, Calcium 8.3 L, Magnesium 2.1, Troponin I < 0.015 06/30/19 03:20: B-Natriuretic Peptide 699.4 H 06/30/19 06:25: Troponin I 0.023 06/30/19 09:45: Troponin I 0.047 H Current Medications Acetaminophen (Tylenol) 650 mg PO Q6H PRN PRN PRN Reason: Pain Score 1-3/Temp > 100.7 F Aspirin (Aspirin, Baby) 81 mg PO DAILY@0800 REPLACED BY [facility] Dextrose (D50w Syringe) 0 gm IV X1 PRN; Protocol PRN Reason: Hypoglycemia Diazepam (Valium) 2 mg PO Q8H PRN PRN Reason: VERTIGO Enoxaparin Sodium (Lovenox) 40 mg SC DAILY@1000 REPLACED BY [facility] Last Admin: 06/30/19 09:52 Dose: 40 mg Documented by: Furosemide (Lasix) 40 mg IV BIDLX REPLACED BY [facility] Glucagon () 1 mg IM .X1 PRN PRN Reason: Hypoglycemia Sodium Chloride () 250 mls @ 15 mls/hr IV .[id number] PRN PRN Reason: Saline Flush Meclizine HCl (Antivert) 25 mg PO TID REPLACED BY [facility] Last Admin: 06/30/19 09:52 Dose: 25 mg Documented by: Prochlorperazine Edisylate (Compazine Iv) 5 mg IV Q4H PRN PRN PRN Reason: Breakthrough Nausea/Vomiting Sodium Chloride () 10 - 40 ml IV UD PRN PRN Reason: SALINE FLUSH Assessment/Plan All Active Problems (Last Reviewed 06/30/19 @ 07:25 by Dez Soto MD) Acute exacerbation of CHF (congestive heart failure) (Acute) Vertigo (Acute) Stroke (Acute) The patient is a 68 year old M with PMH HTN, HLD, history of TIA/stroke, carotid artery stenosis,s/p B/L Carotid artery stenting, left vertebral artery stenosis/occlusion, chronic systolic CHF, CAD status post CABG, history of tonsillar cancer, status post surgery radiation and chemo, hypothyroidism, COPD, chronic vertigo, depression admitted with dizziness and shortness of breath. Per patient he woke up this morning and felt acute onset dizziness, he felt the room was spinning, dizziness was worse than if he moves his head, was wobbly. Per patient he has been on meclizine for chronic vertigo. Per patient he is compliant with aspirin and Plavix at baseline. Per patient he drives, does not use cane or walker to ambulate, denies any frequent falls and does not need assistance for his ADLs. Per patient he follows up with Dr. Nieto for his carotid stenosis. MRI brain done on admission showed small right frontal and right occipital acute infarct, head/neck noted to show chronic left vertebral artery occlusion, bilateral ICA 50 to 69% stenosis. Impression Small right frontal and right occipital infarct Bilateral carotid stenosis Dizziness-likely peripheral etiology Plan -On Aspirin 81 mg p.o. once daily and Plavix 75 mg p.o. once daily at baseline. Bleeding risk discussed in detail with the patient. 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 It may contain incorrect words, spellings and punctuation that were not noted in the review of the note prior to signing Code Visit Inpatient E&M: 86316 Init Hosp L3
--- NOTE | 2019-06-30 13:11 | CT_ITS ---
STUDY: CTA HEAD AND NECK WITH CONTRAST REASON FOR EXAM: Male, 68 years old. STROKE SURG-right neck LN resection, 4 vessel CABG, cholecystectomy, AAA repair, gastric bypass with revision and gastric banding HX-THROAT CA W/ SURG,CHEMO,RAD TX RADIATION DOSAGE (If Supplied By Facility): CTDIvol = ( 30.77 ) mGy, DLP = ( 1561.30 ) mGycm TECHNIQUE: CT angiography was performed with a multi-detector CT scanner. Data acquisition was obtained from the skull base through the vertex following intravenous administration of IV Isovue 370 100CC. MIP images were reconstructed from the axial data set. Post-processing of the angiographic images was performed, with multiplanar reformation and 3D reconstruction. Individualized dose optimization techniques were used for this CT. COMPARISON: No relevant priors. FINDINGS: Normal bilateral petrous carotid arteries. There is calcified plaque formation of the right cavernous carotid artery, with a mild stenosis (less than 50%). There is calcified plaque formation of the left cavernous carotid artery, with a mild stenosis (less than 50%). Normal right A1 segments of the anterior cerebral artery. Normal left A1 segments of the anterior cerebral artery. Normal intact anterior communicating artery (ACOM). Normal bilateral A2 segments of the anterior cerebral arteries. Normal right M1 and M2 segments of the middle cerebral arteries, with a normal M1 bifurcation. Slightly hypoplastic/small left M1 and M2 segments of the middle cerebral arteries, with a normal M1 bifurcation. Normal right posterior communicating artery (PCOM). Normal left posterior communicating artery (PCOM). Normal bilateral vertebral arteries. Normal basilar artery with a normal basilar bifurcation. The visualized bilateral superior cerebellar (SCA) arteries are normal. Normal bilateral P1, P2 and visualized P3 segments of the posterior cerebral arteries. There is no demonstrated aneurysm of the [place]. There is no demonstrated abnormality of the visualized brain. AORTIC ARCH: Normal visualized aortic arch. Unremarkable origins of the brachiocephalic, left common carotid, and left subclavian , with minimal plaque. Stents are present in the bilateral distal common carotid arteries up to the bifurcations. The cervical portions of the bilateral internal carotid arteries are fully patent up to the intracranial entrance. RIGHT CAROTID ARTERIES: Normal right common carotid artery (CCA). Normal visualized cervical portion of the right internal carotid artery. The left ECA appears to have been surgically ligated with clips seen in the expected region. LEFT CAROTID ARTERIES: Normal left common carotid artery (CCA). Normal visualized cervical portion of the left internal carotid artery. Normal origin of the left external carotid artery (ECA). VERTEBRAL ARTERIES: There is enhancement within the bilateral vertebral arteries with a small left vertebral artery, and a dominant right vertebral artery. CT/CTA Head AND Neck W/ Contrast IMPRESSION: 1. No demonstrated arterial occlusion or high-grade stenosis of the major neck and intracranial arteries. 2. Stents are present in the bilateral distal common carotid arteries up to the bifurcations. The cervical portions of the bilateral internal carotid arteries are fully patent up to the intracranial entrance. Electronically Signed: Mahamed Moore MD at 19:11 EST , Service support ,
[2019-06-30] MEDS: 0.9% Saline Lock 10 ML Syringe IV ×3 (13:22→22:55)
[2019-06-30 14:29] LABS: Cholesterol 195 mg/dL (200); High Density Lipoprotein 45 mg/dL; Triglycerides 158 mg/dL; Very Low Density Lipoprotein 32 mg/dL (5-40)
--- NOTE | 2019-06-30 15:52 | CASEMGMT ---
Social Work PCU Reason for intervention: PHQ9 depression screening per protocol for patient's diagnosed with stroke or TIA Summary: Record briefly reviewed and noted patient with history of depression. Met with patient in room and introduced to self, role, and reason for visit. Patient agreeable to complete PHQ9 screen. Patient's score is a 20, falling in the severe range of depression, see attached link for details. Patient report he has had depression for years, is treated with Zoloft currently and reports to take Zoloft at prescribed. Patient reports if misses a dose then just cries. Patient discussed feeling that he sleeps too much going to bed at 9:30 pm until 7:00 am and then some days takes a 2 hour nap in the afternoon. Patient does eat 3 meals a day, but reports to feel he should be eating more. Patient reports his mind wanders, that he sits at the window and looks outside most days, that is is hard to concentrate on television or reading. Patient reports to have much stress in his life, with most prominent stress being from patient's 42 year old son who lives in the home and has substance use issues related to methamphetamines. Patient reports the son has lived in the home for a year now, and patient and feel helpless to know what to do to change the living situation, struggling with not wanting the son there but also not wanting put the son to the streets. Patient reports to have a 47 year old daughter who lives out of town and also has substance use issues with opioids and benzodiazepines. Patient denies he himself or patient's have any substance use issues. Additional stress from the holidays coming and patient worrying that family will cause some drama and not allow for an enjoyable holiday season. Patient also endorses that sometimes he feels down due to patient's not having any health issues and self perception that patient is holding his back due to patient's various medical issues. Patient reports he has been on full disability for years now and is not allowed to work. Patient reports there have been some medication changes in the last month, wilt patient being prescribed a new medicine for fibromyalgia and then for 3 weeks patient have an energy surge (outside taking out tree stumps) as well as developing other medical issues; increase of one of levothyroxine, and then running of of meclizine that patient has been on for 15 years now. Patient report that cessation of the meclizine helped to clear patient's head up, so did find that change useful. Patient admits to suicidal ideation in the past, but none in the last 2 weeks or currently. Patient clearly stated that would not kill himself as this would just transfer the burden and sadness to patient's , children, and dog. Patient reports that does not want to be the cause for anyone being sad. Patient reports he finds enjoyment and relief in spending time with his dog Amity. Patient reports the dog is patient's constant business agent and helpful to patient's mood. Talked with patient about addition counseling to patient's current treatment regime for depression. Patient reports that has been to [facility] in the past and found counseling helpful. Patient reports has been contemplating return to counseling for some time now, especially in light of the holiday's coming. At first patient declined rn social services's offer to make referral to get the ball rolling, but after time talking patient agreed to referral stating what will it hurt, and acknowledging that counseling is beneficial. Touched on [facility] [place] as support options for patient and in regards to having a loved one with addiction and chemical dependency issues. Patient agreed to take information. Patient expressed appreciation for rn social services coming to talk this date. Assessment: Patient cooperative, pleasant, and spontaneously started to share his life stressors. Affect constricted. Mood depressed. Speech within normal limits, thought process logical with good insight into the need and benefit of more supportive services for self. Patient's eye contact null at the beginning but by end of conversation eye contact within normal limits. Patient was able to make several jokes at appropriate times, and did voice that without humor in life one would . Patient is future oriented thinking about the holidays and places value on not wanting to cause his family sadness by dying. Patient is also voicing that he is willing to get back into counseling. Plan: Social work will follow up with patient again on 07.01.2019. Will be making a referral to [facility] for intake. Will be providing a list of [facility] meetings as well as PHQ9 resource guide. Plan to discuss [facility] program as another option for more intensive support and symptom management through the season. -LOGAN Marin, KARLEE
--- NOTE | 2019-06-30 16:07 | CASEMGMT ---
Readmission chart review: Pt was initally admitted 06/17-06/19/19 for unstable angina. Pt was discharged home with f/u plan in place. See RN CM assessment completed by this RN CM on 06/18/19. Pt then returned 06/30/19 for cough/sob and vertigo. Pt was admitted and MRI positive for CVA at this time as well as pt's BNPt is 699 but pt was 95% on room air upon arrival to ED triage. CM to follow PT/OT, home oxygen qualification, and for any further discharge planning/needs. SStaten RN CM
--- NOTE | 2019-06-30 16:19 | CCHN_ITS ---
Hospitalist Note Patient was seen and examined today briefly, he was admitted due to acute systolic congestive heart failure. Patient was also admitted due to dizziness, MRI was performed this morning which showed an acute right frontal and occipital stroke. Patient is currently on aspirin and Plavix, echocardiogram was ordered, stroke score is will be monitored, patient was seen by neurology today. We will stop the patient's Antivert and place him on programmed Valium for his dizziness. Neurology ordered a CTA of the head and neck on the patient. Herb dominguez will be seen by PT and OT
--- NOTE | 2019-06-30 16:29 | CASEMGMT ---
Social Work PCU Updated correction warden Portia regarding panties's PHQ9 screen and plans for social work to see patient again on 07.01.2019. Let RN know that patient denies any current thoughts, plans, intent for suicide. Patient is future oriented and is willing to have a referrals for aftercare. Refer to previous social work documentation this date for further details of interventions completed. Plan: Social work to see patient again on 07.01.2019, to which patient is in agreement with. -LOGAN Marin, SPRAY GUN [employer]IPER
[2019-06-30] MEDS: proCHLORPERazine 10 MG/2 ML Vial 5 MG IV ×2 (17:10→22:55)
[2019-06-30] MEDS: diazePAM 2 MG Tablet PO (17:11)
[2019-06-30] MEDS: Acetaminophen 325 MG Tablet 650 MG PO (20:00)
[2019-06-30 22:53] LABS: Hemoglobin A1c 5.5 % (4.2-6.3)
[2019-07-01 02:15] VITALS: BP 145/86; PULSE 87; RESP 18; TEMP 36.5; O2SAT 93
[2019-07-01 03:00] VITALS: PULSE 87
[2019-07-01 05:40] VITALS: BP 149/98; PULSE 87; RESP 20; TEMP 36.7; O2SAT 92
[2019-07-01] MEDS: Acetaminophen 325 MG Tablet 650 MG PO (05:43)
--- NOTE | 2019-07-01 05:55 | RAD_ITS ---
STUDY: X-RAY CHEST REASON FOR EXAM: Male, 68 years old. SOB TECHNIQUE: Single frontal view of the chest. COMPARISON: 06/30/2019 FINDINGS: Median sternotomy wires and CABG clips. Clips in the neck. No acute pulmonary findings. There is no demonstrated pleural abnormality. Normal size heart. Normal mediastinum and becca. Normal visualized pulmonary arteries. Normal visualized aortic arch and descending thoracic aorta. Normal visualized thoracic spine. Normal visualized ribs, clavicles, and shoulders. There is no demonstrated abnormality of the visualized soft tissue structures of the upper abdomen. RAD/Chest 1 View (Portable) IMPRESSION: No acute pulmonary findings. Electronically Signed: Dionisio Leos MD at 5:44 EST Tel , Service support ,
[2019-07-01 06:52] VITALS: PULSE 81
[2019-07-01 07:55] VITALS: O2SAT 91
--- NOTE | 2019-07-01 08:03 | PCM.PN.NEU ---
Patient Problems: Active and Suspected Problems (Last Reviewed 06/30/19 @ 07:25 by Dez Soto MD) Acute exacerbation of CHF (congestive heart failure) (Acute) Vertigo (Acute) Stroke (Acute) Subjective: No issues overnight. Care discussed with nursing staff and hospitalist. Dizziness improved, patient wanting to go home. CTA head/neck- no hemodynamically significant stenosis or occlusion. patent bilateral carotid stents, chronic left vert occlusion - Physical Exam Vitals/I&O's: Vital Signs Temp Pulse Resp BP Pulse Ox 98.1 F 81 20 H 149/98 H 91 07/01/19 05:40 07/01/19 06:52 07/01/19 05:40 07/01/19 05:40 07/01/19 07:55 Oxygen Flow Rate (L/min) 2 Oxygen Delivery Method Nasal Cannula Weight: 84.3 kg Body Mass Index (BMI) 26.6 Finger Stick Blood Glucose 104 Intake and Output for Last 24 Hours 06/29/19 06/30/19 07/01/19 23:59 23:59 23:59 Intake Total 180 / 300 240 / 240 Output Total 5025 / 7025 2275 / 2275 Balance -4845 / -6725 -5 / -2034 General: Alert HEENT: Normocephalic Neck: Supple Lungs: Normal air movement Cardiovascular: Normal S1, Normal S2 Abdomen: Bowel Sounds Present Extremities: No cyanosis Neurological: - - Conscious, alert, AOA x3, CN II to XII grossly intact, power 5/5 both upper and lower extremities, plantars B/L flexor, no pronator drift, no sensory loss, no cerebellar signs, gait deferred, reflexes + B/L B/S/T/K/A, No NR, fundus not visualized, NIHSS 0 at present, mRS 0 at baseline Psych/Mental Status: Normal Affect Laboratory Results 06/30/19 03:20: Triglycerides 158, Cholesterol 195, LDL Cholesterol 118, VLDL Cholesterol 32, HDL Cholesterol 45 06/30/19 03:20: Hemoglobin A1c 5.5 06/30/19 09:45: Troponin I 0.047 H Current Medications Acetaminophen (Tylenol) 650 mg PO Q6H PRN PRN PRN Reason: Pain Score 1-3/Temp > 100.7 F Last Admin: 07/01/19 05:43 Dose: 650 mg Documented by: Aspirin (Aspirin, Baby) 81 mg PO DAILY@0800 [facility] Dextrose (D50w Syringe) 0 gm IV X1 PRN; Protocol PRN Reason: Hypoglycemia Diazepam (Valium) 2 mg PO Q6 [facility] Last Admin: 07/01/19 05:44 Dose: Not Given Documented by: Enoxaparin Sodium (Lovenox) 40 mg SC DAILY@1000 [facility] Last Admin: 06/30/19 09:52 Dose: 40 mg Documented by: Furosemide (Lasix) 40 mg IV BIDLX [facility] Last Admin: 06/30/19 17:04 Dose: 40 mg Documented by: Glucagon () 1 mg IM .X1 PRN PRN Reason: Hypoglycemia Sodium Chloride () 250 mls @ 15 mls/hr IV .Q47P20H PRN PRN Reason: Saline Flush Prochlorperazine Edisylate (Compazine Iv) 5 mg IV Q4H PRN PRN PRN Reason: Breakthrough Nausea/Vomiting Last Admin: 06/30/19 22:55 Dose: 5 mg Documented by: Sodium Chloride () 10 - 40 ml IV UD PRN PRN Reason: SALINE FLUSH Last Admin: 06/30/19 22:55 Dose: 10 ml Documented by: STROKE Vital Signs/Narrative: Vital Signs Temp Pulse Resp BP Pulse Ox 07/01/19 07:55 91 07/01/19 06:52 81 07/01/19 05:40 98.1 F 87 20 H 149/98 H 92 Diagnostic/Tx/Re-eval - Rhythm Strip Rhythm Strip: Sinus Rhythm Rate: 60 Ectopy: None Medical Necessity - Tobacco Use Smoking Status: Never smoker Assessment/Plan All Active Problems (Last Reviewed 06/30/19 @ 07:25 by Dez Soto MD) Acute exacerbation of CHF (congestive heart failure) (Acute) Vertigo (Acute) Stroke (Acute) The patient is a 68 year old M with PMH HTN, HLD, history of TIA/stroke, carotid artery stenosis,s/p B/L Carotid artery stenting, left vertebral artery stenosis/occlusion, chronic systolic CHF, CAD status post CABG, history of tonsillar cancer, status post surgery radiation and chemo, hypothyroidism, COPD, chronic vertigo, depression admitted with dizziness and shortness of breath. Per patient he woke up this morning and felt acute onset dizziness, he felt the room was spinning, dizziness was worse than if he moves his head, was wobbly. Per patient he has been on meclizine for chronic vertigo. Per patient he is compliant with aspirin and Plavix at baseline. Per patient he drives, does not use cane or walker to ambulate, denies any frequent falls and does not need assistance for his ADLs. Per patient he follows up with Dr. Nieto for his carotid stenosis. MRI brain done on admission showed small right frontal and right occipital acute infarct, head/neck noted to show chronic left vertebral artery occlusion, bilateral ICA 50 to 69% stenosis. Impression Small right frontal and right occipital infarct Bilateral carotid stenosis s/p stenting Dizziness-likely peripheral etiology Plan -On Aspirin 81 mg p.o. once daily and Plavix 75 mg p.o. once daily at baseline. Bleeding risk discussed in detail with the patient. Defer to Cardiology -Lipitor 80 mg PO q hs -MRI brain images reviewed, MRA head/neck reviewed -CTA head/neck- no hemodynamically significant stenosis, patent bilateral carotid stents, chronic left vert occlusion -HbA1c 5.5, LDL 118 -TTE-EF 45%, mildly dilated LA, no PFO -30-day event recorder on discharge -Stroke risk factors discussed and stroke education provided -Avoid hypotension -FCI goal BP < 130/80 mmHg, goal LDL < 70 and goal Hba1c < 7% -Vestibular therapy and ENT consult -PT/OT/ST -GI/DVT prophylaxis -Fall precautions -Further medical management per hospitalist team -Please call with questions if any -Follow-up with neurology in 4 weeks -Thank you for allowing us to participate in patient's care and management This note has been generated using [employer] dictation software. It may contain incorrect words, spellings and punctuation that were not noted in the review of the note prior to signing
--- NOTE | 2019-07-01 09:14 | CASEMGMT ---
Addendum entered by Arlette Peck 07/01/19 10:19: Script for OP PT and vestibular therapy received from Dr Song and given to pt/. Original Note: CLINTON GREY NOTE: PT/OT evals reviewed. PT recommends further therapy. To room to talk with pt and who is at bedside. Discussed PT recommendations, HHC, and OP therapy. Pt declines wanting HHC and stated would like to do OP therapy. He is indecisive as to what location he would like to go to. Will get script from Dr Song and give to pt to take to a location of his choice. Anson SKELTON RN CM
[2019-07-01 09:40] VITALS: BP 91/70; PULSE 88; RESP 18; TEMP 36.6; O2SAT 94
--- NOTE | 2019-07-01 09:50 | PCM.DC ---
- Discharge Diagnoses Current Active Problems: Current Active and Chronic Problems (Last Reviewed 06/30/19 @ 07:25 by Dez Soto MD) Acute exacerbation of CHF (congestive heart failure) (Acute) Vertigo (Acute) Stroke (Acute) You will use the following diet at home:: No restrictions Your food should be the consistency of: Regular Your liquids should be the consistency of: Regular/Thin Discharge Activity: Return to Normal Activity Weight Bearing Status: Full weight bearing Additional Instructions: DO NOT TAKE AMLODIPINE Allergies/Adverse Reactions: Allergies ranolazine [From Ranexa] Adverse Reaction (Intermediate, Verified 06/01/19 08:49) wake up at night feeling like choking ciprofloxacin [From Cipro] Adverse Reaction (Verified 05/07/19 16:00) Vomiting ciprofloxacin HCl [From Cipro] Adverse Reaction (Verified 05/07/19 16:00) Vomiting metronidazole [From Flagyl] Adverse Reaction (Verified 05/07/19 16:00) Vomiting morphine Adverse Reaction (Verified 05/07/19 16:00) after 2-3 days I turn into a monster ofloxacin [From Floxin] Adverse Reaction (Verified 05/07/19 16:00) Vomiting Medications to take at Discharge Clopidogrel Bisulfate [Plavix] 75 mg PO DAILY 10/12/15 albuterol sulfate HFA 90 mcg/actuation aerosol inhaler 2 puff INHALATION Q4H PRN g 05/05/19 fluticasone propionate 50 mcg/actuation nasal spray,suspension 2 spray INTRANASAL DAILY 05/05/19 levothyroxine 100 mcg tablet 100 mcg PO DAILY 05/05/19 prednisone 10 mg tablet 10 mg PO DAILY 05/05/19 sucralfate 1 gram tablet 1 g PO 4X/DAY tab 05/05/19 Aspirin E.C. [Ecotrin] 81 mg PO DAILY@0800 06/17/19 Atorvastatin Calcium [Lipitor] 20 mg PO DAILY 06/17/19 Guaifenesin [Mucinex] 1,200 mg PO Q12H 06/17/19 Multivitamin with Minerals [Multiple Vitamin] 1 tab PO DAILY 06/17/19 Pantoprazole Sodium [Protonix] 20 mg PO BID 06/17/19 Potassium Chloride [K-Dur] 20 mg PO BID 06/17/19 Sertraline HCl [Zoloft] 50 mg PO DAILY 06/17/19 Carvedilol [Coreg (Beta Renee)] 6.25 mg PO BID 06/30/19 Fludrocortisone Acetate [Florinef] 0.1 mg PO TID 06/30/19 Amlodipine Besylate 2.5 mg PO DAILY #1 tab 07/01/19 Aspirin [Aspirin, Baby] 81 mg PO DAILY@0800 tab.chew 07/01/19 Furosemide [Lasix] 40 mg PO DAILY #30 tab 07/01/19 Lisinopril [Zestril] 2.5 mg PO DAILY #30 tab 07/01/19 Meclizine HCl 12.5 mg PO BID #60 tab 07/01/19 The following prescriptions were given: Amlodipine Besylate 2.5 mg PO DAILY #1 tab Furosemide [Lasix] 40 mg PO DAILY #30 tab Transmission Status: [id number] Meclizine HCl 12.5 mg PO BID #60 tab Transmission Status[id number] Lisinopril [Zestril] 2.5 mg PO DAILY #30 tab Transmission Status: [id number] Primary Care Physician: Kelley Tolbert MD [Primary Care Provider] - Please follow up with your Primary Care Physician in: IN 2 WEEKS Test Results: Test results from this visit will be discussed in further detail at your follow-up appointment, if applicable. Please Follow Up With: Terry Dunbar MD When: SCHEDULED
[2019-07-01] MEDS: Enoxaparin 40 MG/0.4 ML Syringe SC (09:56)
[2019-07-01] MEDS: Aspirin 81 MG TAB.CHEW PO (09:56)
--- NOTE | 2019-07-01 11:37 | CASEMGMT ---
Social Work PCU Reason for intervention: follow up to PHQ9 screening done on 06.30.2019. Summary: Called [facility] and arranged patient to have an intake for 07.15.2019 at 0930 with Marlin. Met with patient in room. Patient sitting in bed, dressed, and reports he feels ready for discharge home. Educated patient to [facility] program, and the [facility] program. Discussed having someone from come to talk to patient more about the program. Patient reported that he did not want to wait for another person, and would take information to look over. Educated patient that should he decide to want this level of care then can call to set up an intake. Encouraged patient to consider this options, as may be a good option to get patient out of the house and involved more quickly in symptom management. Patient agreed to consider. Educated patient to the intake assessment at [facility]. Patient stated now I will go to that. Provided patient with [facility] lists as well. Patient accepting of all information offered today. Addressed with patient the topic of suicide. Patient denies any thoughts, plans, intent for suicide. When asked if patient ever has attempted suicide patient stated, God no. Patient's came in and patient provided the with the packet social security assessor gave. Patient informed Shelby that this caption writer was present for counseling and support. Explained to Shelby the follow up made and Shelby reported to think this was a good idea for patient. Assessment: Patient alert, oriented, logical through process, speech within normal limits. Patient's eye contact normal today. Affect brighter than yesterday and smiling more. Patient stating intent to follow up with [facility]. Plan: Home with , plans to remain on antidepressant medication, mental health follow up in place, as well as information on hospital programming and [facility] meetings given. No other services requested or indicated. -LOGAN Marin, MANAGER ROUTE
--- NOTE | 2019-07-01 15:55 | PCM.DC.SUM ---
Discharge Date and Diagnosis Date of Admission: 06/30/19 Date of Discharge: 07/01/19 - Primary Discharge Diagnosis #1 right frontal lobe and right occipital lobe ischemic stroke-acute #2 acute on chronic vertigo #3 acute congestive heart failure with intermediate ejection fraction #4 ischemic cardiomyopathy #5 hyperlipidemia #6 essential hypertension - Secondary Discharge Diagnosis Chronic Problems (Last Reviewed 06/30/19 @ 07:25 by Dez Soto MD) Essential hypertension (Chronic) Atherosclerosis of [place] coronary artery of [place] heart without angina pectoris (Chronic) CABG x 4 LEVINE-LAD, Sequential SVG to D1 and LCx, SVG to RPDA 02/26/2013 Bilateral carotid artery stenosis (Chronic) Bilateral carotid artery stenting 2018 Hyperlipidemia (Chronic) History of coronary artery bypass graft (Chronic 02/26/13) CABG x 4 LEVINE-LAD, Sequential SVG to D1 and LCx, SVG to RPDA 02/26/2013 Orthostatic hypotension (Chronic) Hospital Course and Treatment Operations: None Procedures: 2-D Echocardiogram Summary of Care Provided: The patient is a 68 year old M who was seen in the emergency room at [facility] with chief complaint of shortness of breath, he also complained of vertiginous type symptoms. Work-up in the emergency room included a chest x-ray which showed evidence of congestive heart failure, EKG did not show evidence of acute ischemia. Patient was admitted to PCU, he underwent an MRI of the brain which showed 2 strokes one in the right frontal lobe and one in the right occipital lobe. Patient was seen by PT and OT, and neurology in consultation. Patient was given IV Lasix and responded well to the IV Lasix. Echocardiogram was performed which showed no evidence of PFO, patient had a 45% EF. On 07/01/2019, patient was seen and examined: On examination he appeared in good health and spirits. Vital signs as documented. Skin warm and dry and without overt rashes. Neck without JVD. Lungs clear. Heart exam notable for regular rhythm, normal sounds and absence of murmurs, rubs or gallops. Abdomen unremarkable and without evidence of organomegaly, masses, or abdominal aortic enlargement. Extremities nonedematous. Neuro: Cranial nerves II through XII are grossly intact, no focal motor deficits were noted, sensation to light touch and pinprick intact. Psych: Patient is alert and oriented x3, he does not appear anxious or depressed On 07/01/2019, patient was seen and examined and felt to be in stable condition for discharge home - Physical Exam Vitals/I&O's: Vital Signs Temp Pulse Resp BP Pulse Ox 97.8 F 88 18 91/70 94 07/01/19 09:40 07/01/19 09:40 07/01/19 09:40 07/01/19 09:40 07/01/19 09:40 Oxygen Flow Rate (L/min) 2 Oxygen Delivery Method Room Air Weight: 84.3 kg Body Mass Index (BMI) 26.6 Finger Stick Blood Glucose 104 Intake and Output for Last 24 Hours 06/29/19 06/30/19 07/01/19 23:59 23:59 23:59 Intake Total 180 / 300 240 / 240 Output Total 2275 / 7086 2275 / 2275 Balance -4845 / -6725 -2034 / -2034 Laboratory Results 06/30/19 03:20: Hemoglobin A1c 5.5 Discharge Activity: Return to Normal Activity Weight Bearing Status: Full weight bearing Home Medications: Medications to take at Discharge Clopidogrel Bisulfate [Plavix] 75 mg PO DAILY 10/12/15 albuterol sulfate HFA 90 mcg/actuation aerosol inhaler 2 puff INHALATION Q4H PRN g 05/05/19 fluticasone propionate 50 mcg/actuation nasal spray,suspension 2 spray INTRANASAL DAILY 05/05/19 levothyroxine 100 mcg tablet 100 mcg PO DAILY 05/05/19 prednisone 10 mg tablet 10 mg PO DAILY 05/05/19 sucralfate 1 gram tablet 1 g PO 4X/DAY tab 05/05/19 Aspirin E.C. [Ecotrin] 81 mg PO DAILY@0800 06/17/19 Atorvastatin Calcium [Lipitor] 20 mg PO DAILY 06/17/19 Guaifenesin [Mucinex] 1,200 mg PO Q12H 06/17/19 Multivitamin with Minerals [Multiple Vitamin] 1 tab PO DAILY 06/17/19 Pantoprazole Sodium [Protonix] 20 mg PO BID 06/17/19 Potassium Chloride [K-Dur] 20 mg PO BID 06/17/19 Sertraline HCl [Zoloft] 50 mg PO DAILY 06/17/19 Carvedilol [Coreg (Beta Renee)] 6.25 mg PO BID 06/30/19 Fludrocortisone Acetate [Florinef] 0.1 mg PO TID 06/30/19 Amlodipine Besylate 2.5 mg PO DAILY #1 tab 07/01/19 Aspirin [Aspirin, Baby] 81 mg PO DAILY@0800 tab.chew 07/01/19 Furosemide [Lasix] 40 mg PO DAILY #30 tab 07/01/19 Lisinopril [Zestril] 2.5 mg PO DAILY #30 tab 07/01/19 Meclizine HCl 12.5 mg PO BID #60 tab 07/01/19 Following Prescrptions Were Given to Patient: Amlodipine Besylate 2.5 mg PO DAILY #1 tab Furosemide [Lasix] 40 mg PO DAILY #30 tab Transmission Status: Received by [id number] Meclizine HCl 12.5 mg PO BID #60 tab Transmission Status: Received by [id number] Lisinopril [Zestril] 2.5 mg PO DAILY #30 tab Transmission Status: Received by [id number] Primary Care Physician: Kelley Tolbert MD [Primary Care Provider] - Please follow up with your Primary Care Physician in: IN 2 WEEKS Please Follow Up With: Terry Dunbar MD When: SCHEDULED Please Follow Up With: GIACOMO TINAJERO N.P. Please Follow Up With: Rizwan Bush MD Please Follow Up With: [facility] When: with Marlin Disposition: Home Minutes spent on discharge:: 32 Patient Condition:: Stable Medical Necessity - Tobacco Use Smoking Status: Never smoker Meaningful Use Info Meaningful Use Diagnoses (Choose all that apply): CHF - CHF ALL/ARB ordered at discharge?: Yes Documented LVEF (%): 32 Code Visit Inpatient E&M: 74100 Disch Hosp
--- NOTE | 2019-07-03 14:11 | CASEMGMT ---
RN MATILDA DC PHONE CALL DC DATE: 07/01/19 DC Disposition: Home Diagnosis on Discharge: CVA LACE/STRATA: 06/07 Intro role of CM to , pt was sleeping. states no questions re: instructions, f/u or medications. She states everything was explained very well to them. No care improvement suggestions were given. Oly MACDONALDN RN AC
== END 2019-07-01 11:11 | disposition home or self-care (01) | DRG 64 ==
LOC: ED 03:29 → PCU 04:26
PROVIDERS: Psychiatry & Neurology Neurology; Admitting Provider Hospitalist; Emergency Provider Emergency Medicine; Family Provider Internal Medicine; PCP Internal Medicine; Visit Provider Internal Medicine
DX: I63.9 Cerebral infarction, unspecified (principal); I50.21 Acute systolic (congestive) heart failure; I25.810 Atherosclerosis of coronary artery bypass graft(s) without angina pectoris; I11.0 Hypertensive heart disease with heart failure; E87.6 Hypokalemia; I25.10 Atherosclerotic heart disease of native coronary artery without angina pectoris; I65.23 Occlusion and stenosis of bilateral carotid arteries; I25.5 Ischemic cardiomyopathy; E78.5 Hyperlipidemia, unspecified; Z85.818 Personal history of malignant neoplasm of other sites of lip, oral cavity, and pharynx; Z79.82 Long term (current) use of aspirin; Z79.02 Long term (current) use of antithrombotics/antiplatelets; Z95.1 Presence of aortocoronary bypass graft; Z92.3 Personal history of irradiation; Z92.21 Personal history of antineoplastic chemotherapy; R42 Dizziness and giddiness
CPT/HCPCS: 36415; 70496; 70498; 70544; 70549; 70551; 71045; 80048; 80061; 83036; 83735; 83880; 84484; 85025; 93005; 93308; 97162; 97166; 97530; 97802; 99285; A9575; J7030; Q9957; Q9967; A4216; J1940; J2405

== ENCOUNTER 2019-07-05 03:05 | Emergency (ER) | payer MEDICARE, SELFPAY ==
[2019-06-30 04:35] VITALS: BMI 26.6
[2019-07-05] VITALS (13 sets, daily range): BP systolic 140–205; BP diastolic 102–149; PULSE 71–87; RESP 9–20; TEMP 36.4; O2SAT 94–98; BMI 25.4
--- NOTE | 2019-07-05 03:18 | EKG12_ITS ---
Test Reason : CP Blood Pressure : / mmHG Vent. Rate : 083 BPM Atrial Rate : 083 BPM P-R Int : 170 ms QRS Dur : 118 ms QT Int : 390 ms P-R-T Axes : 045 073 082 degrees QTc Int : 458 ms Normal sinus rhythm Non-specific intra-ventricular conduction delay Nonspecific ST and T wave abnormality Abnormal ECG Confirmed by LISSETTE HANNA, DELFINA ([id number]), rewrite editor JORDEN CORRAL ([id number]) on 07/06/2019 2:51:13 PM Referred By: BB Confirmed By:DELFINA MCLAUGHLIN MD
--- NOTE | 2019-07-05 03:18 | CT_ITS ---
We are attempting to reach an attending provider to discuss findings. An addendum with communication details will be sent when the communication is complete. STUDY: CT BRAIN WITHOUT CONTRAST REASON FOR EXAM: Male, 68 years old. Stroke symptoms, history of treated carotid stenosis. RADIATION DOSAGE (If Supplied By Facility): CTDIvol = ( 44.99 ) mGy, DLP = ( 829.85 ) mGycm TECHNIQUE: Transaxial CT imaging of the brain was performed without administration of intravenous contrast material. Individualized dose optimization techniques were used for this CT. COMPARISON: CT dated 07/08/2017 CTA 06/30/2019. FINDINGS: Normal soft tissue structures. Normal calvarium. There is mild cerebral atrophy with widening of the extra-axial spaces and ventricular dilatation. There are areas of decreased attenuation within the white matter tracts of the supratentorial brain, consistent with microvascular disease changes. There is a well-corticated hypoattenuation involving the left basal ganglia, stable and consistent with an old lacunar infarct. Remainder of the basal ganglia and thalami are normal. Normal brainstem. Normal cerebellum. There is no intracranial hemorrhage. There are no findings of an acute ischemic infarction. Normal visualized paranasal sinuses. CT/Brain/Head without Contrast IMPRESSION: Mild generalized brain atrophy along with microangiopathic white matter disease, stable study in the interval. No acute intracranial hemorrhage or space-occupying lesion. Electronically Signed: Bella Boyce MD at 3:49 EST , Service support ,
--- NOTE | 2019-07-05 03:20 | ED.VIS.STROK ---
History of Present Illness Chief Complaint: Numb/Ting Informant: Patient Onset: Hours - 1-1.5 Context: Sudden Onset - when coughed Timing: Continuous Quality and Location: Left Arm Parasthesia, Left Arm Weakness Onset: acute Current Severity: Moderate Maximum Severity: Moderate Associated Symptoms: Negative for: Headache, Nausea, Vomiting, Chest Pain Narrative: Patient has a history of TIAs and coronary disease, was having chest pain last week and had a heart cath without the need for PCI/intervention, was awake this morning at 2 AM walking in [facility] and coughed suddenly, which was associated with the onset of numbness and weakness in his left upper extremity that has persisted and been constant since. He denies any headache, loss of consciousness, thoracic symptoms, leg symptoms, speech difficulty. - Past Medical History (1) Stroke Status: Chronic (2) Vertigo Status: Chronic (3) Atherosclerosis of [place] coronary artery of [place] heart without angina pectoris Status: Chronic Comment: CABG x 4 LEVINE-LAD, Sequential SVG to D1 and LCx, SVG to RPDA 02/26/2013 (4) Bilateral carotid artery stenosis Status: Chronic Comment: Bilateral carotid artery stenting 2017 (5) Essential hypertension Status: Chronic (6) Hyperlipidemia Status: Chronic Past Medical History - Allergies and Home Meds Allergies/Adverse Reactions: Allergies ranolazine [From Ranexa] Adverse Reaction (Intermediate, Verified 07/05/19 03:28) wake up at night feeling like choking ciprofloxacin [From Cipro] Adverse Reaction (Verified 07/05/19 03:28) Vomiting ciprofloxacin HCl [From Cipro] Adverse Reaction (Verified 07/05/19 03:28) Vomiting metronidazole [From Flagyl] Adverse Reaction (Verified 07/05/19 03:28) Vomiting morphine Adverse Reaction (Verified 07/05/19 03:28) after 2-3 days I turn into a monster ofloxacin [From Floxin] Adverse Reaction (Verified 07/05/19 03:28) Vomiting Primary Care Physician: Kelley Tolbert MD [Primary Care Provider] - Surgical History: cholecystectomy, coronary bypass surgery, - - cholecystectomy, appendectomy, H&N surgery for tonsillar cancer, bilat carotid stenting, gastric bypass, kidney stone removal Lives: Spouse/ Significant Other Smoking Status: Never smoker Drugs: None - Family History Paternal Family History: Family History (Last Reviewed 06/30/19 @ 06:02 by Dez Soto MD) Mother CAD (coronary artery disease) Lung cancer Father Cancer Brother Diabetes Hypertension Alcoholism Family History: Reports: - - esophageal cancer Maternal Family History: Family History (Last Reviewed 06/30/19 @ 06:02 by Dez Soto MD) Mother CAD (coronary artery disease) Lung cancer Father Cancer Brother Diabetes Hypertension Alcoholism Family History: Reports: No pertinent history Review of Systems General: Denies: Chills, Fever, Sweats Eyes: Denies: Visual changes - bilaterally, Diplopia ENT: Denies: Rhinorrhea, Sore throat Cardiovascular: Denies: Chest pain, Palpitations Respiratory: Denies: Dyspnea, Cough, Dyspnea on exertion Gastrointestinal: Denies: Abdominal pain, Nausea, Vomiting, Diarrhea, Melena, Hematochezia Genitourinary: Denies: Dysuria, Hematuria, Frequency Musculoskeletal: Denies: Back pain, Swelling, Extremity Pain Skin: Denies: Rash, Wounds Neurological: Reports: Weakness, Numbness. Denies: Headache STROKE Vital Signs/Narrative: Vital Signs Temp Pulse Resp BP Pulse Ox 07/05/19 03:07 97.5 F L 78 16 188/137 H 98 Inital Vital Signs reviewed: Yes - NIHSS Initial 1a Level of Consciousness: 0 1b LOC Questions (Score 2 if aphasic/stupor): 0 1c LOC Commands (Only score 1st attempt): 0 2 Best Gaze (If aphasic, use reflexive mvmts.): 0 3 Visual: 0 4 Facial Palsy: 0 5 Motor Arm Right (UN = amputation/fusion): 0 5 Motor Arm Left: 0 6 Motor Leg Right: 0 6 Motor Leg Left: 0 7 Limb ataxia (Only + if out of proportion): 0 8 Sensory (Aphasia/stupor=0 or 1, coma=2): 1 9 Best Language: 0 10 Dysarthria (mute, coma=2, intubated=UN): 0 11 Extinction and Inattention (only scored if +): 0 Total Score: 1 General: Well nourished, Well developed Head: Normocephalic, Atraumatic Eyes: Perrl, EOMI ENT: Moist mucous membranes, No rhinorrhea Neck: Supple, Nontender, - - No carotid bruits Cardiovascular: Regular rate, Regular rhythm, No murmurs Respiratory: No distress, CTA bilaterally, Chest nontender Abdomen: Soft, Nontender, Nondistended, Normal bowel sounds Back: Nontender, Normal Inspection Extremities: Nontender, No edema. Negative for: Calf Tenderness Skin: Normal color, No rash, No Trauma Neurological: Alert, Oriented x3, Cranial nerves II-XII grossly intact, Normal Strength, Parasthesia - Left upper extremity Psychological: Normal affect, Normal Mood Diagnostic/Tx/Re-eval Impressions Brain CT 07/05/19 03:18 IMPRESSION: Mild generalized brain atrophy along with microangiopathic white matter disease, stable study in the interval. No acute intracranial hemorrhage or space-occupying lesion. Electronically Signed: Bella Boyce MD at 3:49 EST , Service support , ADDENDUM: 07/05/19 0357 IMPRESSION: Mild generalized brain atrophy along with microangiopathic white matter disease, stable study in the interval. No acute intracranial hemorrhage or space-occupying lesion. N.B. : The above information has been verbally conveyed by Bella Boyce MD to Domingo Christopher MD , , on 07/05/2019 03:50:07 (ET). Electronically Signed: Bella Boyce MD at 3:49 EST , Service support , 07/05/19 03:18 Brain/Head without Contrast [CT] Stat Laboratory Results 07/05/19 07/05/19 07/05/19 03:20 03:34 03:34 WBC 8.6 RBC 4.85 Hgb 16.3 Hct 47.4 MCV 97.7 H MCH 33.6 H MCHC 34.4 RDW Std Deviation 45.9 H RDW Coeff of Bharath 12.9 Plt Count 209 MPV 10.1 Immature Gran % (Auto) 0.300 Neut % (Auto) 72.4 H Lymph % (Auto) 13.1 L [place] % (Auto) 11.6 H Eos % (Auto) 2.1 Baso % (Auto) 0.5 Absolute Neuts (auto) 6.2 Absolute Lymphs (auto) 1.13 Nucleated RBC % 0 PT 12.4 INR 0.9 APTT 27.9 Sodium Potassium Chloride Carbon Dioxide Anion Gap BUN Creatinine Estim Creat Clear Calc Est GFR (MDRD) Af Amer Est GFR (MDRD) Non-Af BUN/Creatinine Ratio Glucose Calcium Troponin I POC Glucose 109 07/05/19 03:34 WBC RBC Hgb Hct MCV MCH MCHC RDW Std Deviation RDW Coeff of Bharath Plt Count MPV Immature Gran % (Auto) Neut % (Auto) Lymph % (Auto) [place] % (Auto) Eos % (Auto) Baso % (Auto) Absolute Neuts (auto) Absolute Lymphs (auto) Nucleated RBC % PT INR APTT Sodium 140 Potassium 3.1 L Chloride 103 Carbon Dioxide 28.0 Anion Gap 9 BUN 32 H Creatinine 1.68 H Estim Creat Clear Calc 47.47 Est GFR (MDRD) Af Amer 53 L Est GFR (MDRD) Non-Af 44 L BUN/Creatinine Ratio 19.0 Glucose 107 H Calcium 9.8 Troponin I < 0.015 POC Glucose - Rhythm Strip Rhythm Strip: Sinus Rhythm Rate: 75 Ectopy: None - EKG Initial EKG Interpretation: Sinus Rhythm, No Acute Injury Pattern, Non-Specific ST Changes Prior: Unchanged Follow-up EKG - chest pain Interpretation: Sinus Rhythm, No Acute Injury Pattern Prior: Unchanged - Medical Decision Making Stroke Team Activated: Yes Reviewed Inclusion/Exclusion criteria: Yes IV Alteplase (t-PA) Administered: No - per [facility] stroke neurologist, non-disabling deficit CT negative for any acute change/abnormality. Neurology chose to speak with me over the phone about this possible acute stroke, she stated that since the deficit was not measurable and that the patient's symptoms are nondisabling, IV TPA is not indicated for him at this time. She recommends admission for further stroke/neurologic work-up. However, we have no neurology coverage at this hospital at this time so unfortunately I cannot admit him here. I advised the patient that he will need to be transferred to have that done, which is certainly what I recommend especially since he is having TIAs while taking aspirin and clopidogrel. On reevaluation 1 hour and 15 minutes after arrival, he states his left upper extremity symptoms are resolved and his NIHSS is 0. This is consistent with a TIA, and the above recommendation stands. I discussed this with the patient. He understands, discussed with his , and they choose [facility] since he had cardiac work done there before. We are watching his pressure closely, he remained in the 180 range, but since his stroke symptoms resolved we left him there and did not treat this. However his next blood pressure was 205/149. I asked nursing to perform manual, and before getting this, the patient developed chest discomfort. An EKG was obtained quickly, it shows no changes or signs of an acute injury. Labetalol was ordered. Manual blood pressure was 177/110, labetalol 10mg IV was given, his blood pressure now is 145/102, and his chest discomfort is resolved and the patient feels much better. Accepted at [facility] to telemetry floor. Critical care time (excluding procedures): 30-74 minutes - 35 minutes, including time spent discussing with patient and family, discussing with consultants, arranging transfer, and performing direct patient care at the bedside ED Disposition - Plan for ED Patient: Disposition: [facility] Diagnosis: TIA (transient ischemic attack), Chest pain, unspecified, Hypokalemia, Acute renal insufficiency Referrals: Kelley Tolbert MD [Primary Care Provider] -
[2019-07-05 03:41] LABS: Absolute Lymphocyte Count 1.13 X10^3/uL (0.83-4.51); Absolute Neutrophil Count 6.2 X10^3/uL (2.0-7.7); Basophil# 0.04 X10^3/uL; Basophil% 0.5 % (0-1); Eosinophil# 0.18 X10^3/uL; Eosinophils% 2.1 % (0-5); Hematocrit 47.4 % (40-54); Hemoglobin 16.3 g/dL (13.0-16.5); Lymphocyte # 1.13 X10^3/ul (4.0); Lymphocyte % 13.1 % (19-41); Mean Corp Hgb Conc 34.4 g/dL (32-36); Mean Corpuscular Hgb 33.6 pg (27.0-32.0); Mean Corpuscular Volume 97.7 fL (80-94); Mean Platelet Vol. 10.1 fl (6.2-12.0); Monocyte% 11.6 % (0-10); NRBC Flagged by Analyzer 0 % (0-5); Neutrophil # 6.24 X10^3/uL (2.7-7.7); Neutrophil % 72.4 % (47-70); Platelet Count 209 K/mm3 (150-450); RBC Distribution Width CV 12.9 % (11.6-14.6); RBC Distribution Width SD 45.9 fl (35.1-43.9); Red Blood Count 4.85 M/mm3 (4.6-6.2); White Blood Count 8.6 K/mm3 (4.4-11.0)
[2019-07-05] MEDS: 0.9% Normal Saline 1,000 ML 100 ML IV (03:43)
[2019-07-05 03:46] LABS: Bedside Glucose 109 mg/dL (70-110)
[2019-07-05 03:53] LABS: International Normalized Ratio 0.9; Partial Thromboplast Time 27.9 Seconds (24.1-36.2); Prothrombin Time (Protime)PT. 12.4 SECONDS (11.7-14.9)
--- NOTE | 2019-07-05 04:10 | ED.RN ---
luis a mendez rn made phone call to [facility]
[2019-07-05 04:16] LABS: Anion Gap 9 (5-15); BUN 32 mg/dL (7-18); Calcium,Total 9.8 mg/dL (8.5-10.1); Chloride 103 mmol/L (98-107); Creatinine, Serum 1.68 mg/dL (0.70-1.30); EST Glomerular Filtration Rate 44 mL/min (>60); Est Glom Filt Rate - Afr Amer 53 mL/min (>60); Estimated Creatinine Clearance 47.47 ml/min; Glucose 107 mg/dL (74-106); Potassium 3.1 mmol/L (3.5-5.1); Sodium Level 140 mmol/L (136-145)
--- NOTE | 2019-07-05 05:03 | EKG12_ITS ---
Test Reason : STROKE Blood Pressure : / mmHG Vent. Rate : 077 BPM Atrial Rate : 077 BPM P-R Int : 174 ms QRS Dur : 116 ms QT Int : 414 ms P-R-T Axes : 056 061 092 degrees QTc Int : 468 ms Normal sinus rhythm Nonspecific ST abnormality Abnormal ECG Confirmed by LISSETTE HANNA, DELFINA ([id number]), pet technologist JORDEN CORRAL ([id number]) on 07/06/2019 2:48:06 PM Referred By: BB Confirmed By:DELFINA MCLAUGHLIN MD
--- NOTE | 2019-07-05 05:03 | ED.RN ---
pt c/o chest pressure to the left of the sternum. dr farrell notified. ekg being completed at this time. pt placed on o2 2l via nc
--- NOTE | 2019-07-05 05:50 | NURSING ---
ACCEPTED TO [facility] BY DR. RENNER [id number] REPORT
== END 2019-07-05 06:25 | disposition short-term general hospital (02) ==
PROVIDERS: Emergency Provider Emergency Medicine; Family Provider Internal Medicine; PCP Internal Medicine
DX: G45.9 Transient cerebral ischemic attack, unspecified (principal); R07.89 Other chest pain; E87.6 Hypokalemia; N28.9 Disorder of kidney and ureter, unspecified; R29.701 NIHSS score 1; I25.10 Atherosclerotic heart disease of native coronary artery without angina pectoris; I10 Essential (primary) hypertension; E78.5 Hyperlipidemia, unspecified; Z86.73 Personal history of transient ischemic attack (TIA), and cerebral infarction without residual deficits; Z85.818 Personal history of malignant neoplasm of other sites of lip, oral cavity, and pharynx; Z95.1 Presence of aortocoronary bypass graft; Z98.84 Bariatric surgery status; Z79.82 Long term (current) use of aspirin; Z79.02 Long term (current) use of antithrombotics/antiplatelets; Z79.899 Other long term (current) drug therapy
CPT/HCPCS: 70450; 80048; 82962; 84484; 85025; 85610; 85730; 93005; 96361; 96374; 99285; J7030; A4216

== ENCOUNTER 2019-09-08 10:48 | Emergency (ER) | payer MEDICARE, MEDICAID, SELFPAY ==
[2019-08-18 10:03] VITALS: BMI 26.7
[2019-09-08 10:49] VITALS: BP 146/93; PULSE 103; RESP 20; TEMP 36.4; O2SAT 99; BMI 26.7
--- NOTE | 2019-09-08 10:57 | EKG12_ITS ---
Test Reason : Blood Pressure : / mmHG Vent. Rate : 094 BPM Atrial Rate : 094 BPM P-R Int : 152 ms QRS Dur : 106 ms QT Int : 346 ms P-R-T Axes : 035 043 074 degrees QTc Int : 432 ms Normal sinus rhythm Possible Inferior infarct , age undetermined Abnormal ECG Confirmed by KULDEEP CARDONA ([id number]), bung remover BRYANT TOLENTINO ([id number]) on 09/11/2019 9:43:32 AM Referred By: ESPERANZA/MATTHEW Confirmed By:KULDEEP CARDONA
--- NOTE | 2019-09-08 10:58 | RAD_ITS ---
STUDY: X-RAY CHEST REASON FOR EXAM: Male, 68 years old. SOB, PAIN LEFT SIDE OF CHEST, TAKES HBP MEDICATION TECHNIQUE: PA and lateral views of the chest. COMPARISON: Comparison is made with prior examination dated July 01, 2019. FINDINGS: EKG electrodes are seen. Hyperinflation. Stable increased markings in the lingular segment of the left upper lobe suggestive of scarring. Decreased bilateral bronchovascular markings suggestive of emphysematous changes. This is unchanged. There is no demonstrated pleural abnormality. Sternal cerclage wires and vascular clips are present from a prior sternotomy and coronary artery bypass graft procedure (CABG). Normal mediastinum and becca. Normal visualized pulmonary arteries. There is atherosclerotic tortuosity of the aortic arch and descending thoracic aorta. There are diffuse degenerative changes of the visualized thoracic spine. Normal visualized ribs, clavicles, and shoulders. There is no demonstrated abnormality of the visualized soft tissue structures of the upper abdomen. RAD/Chest PA and Lateral IMPRESSION: Stable examination. No acute abnormality is seen. Electronically Signed: Mckay Blackwood, at 12:36 EST , Service support ,
--- NOTE | 2019-09-08 11:00 | ED.VIS.GEN ---
History of Present Illness Chief Complaint: Weakness Informant: Patient Onset: Days Context: Gradual Onset Timing: Intermittent Current Severity: Moderate Maximum Severity: Moderate Narrative: The patient is a 68-year-old male with medical history significant for coronary vascular disease who follows with Dr. Dunbar that presents to the emergency department with 10 days of generalized weakness. He states that he just feels like he is been short of breath. If he tries to exert himself, he feels lightheaded and feels like he cannot catch his breath. He states that he did have some mild chest tightness. He was recently seen in the office on the and had his Coreg dose increased. He states that because of it, he has been having lower blood pressure and feels like he may be dehydrated. He denies any fevers. He does admit to decreased appetite. Prior similar symptoms: Yes Recent Illness/Hospitalization: No Past Medical History - Allergies and Home Meds Allergies/Adverse Reactions: Allergies ranolazine [From Ranexa] Adverse Reaction (Intermediate, Verified 09/08/19 10:49) wake up at night feeling like choking ciprofloxacin [From Cipro] Adverse Reaction (Verified 09/08/19 10:49) Vomiting ciprofloxacin HCl [From Cipro] Adverse Reaction (Verified 09/08/19 10:49) Vomiting metronidazole [From Flagyl] Adverse Reaction (Verified 09/08/19 10:49) Vomiting morphine Adverse Reaction (Verified 09/08/19 10:49) after 2-3 days I turn into a monster ofloxacin [From Floxin] Adverse Reaction (Verified 09/08/19 10:49) Vomiting Primary Care Physician: Kelley Tolbert MD [Primary Care Provider] - Past Medical History: - - Coronary vascular disease Surgical History: cholecystectomy, coronary bypass surgery, - - cholecystectomy, appendectomy, H&N surgery for tonsillar cancer, bilat carotid stenting, gastric bypass, kidney stone removal Smoking Status: Never smoker - Family History Paternal Family History: Family History (Last Reviewed 07/17/19 @ 11:35 by GALEN Flood) Mother CAD (coronary artery disease) Lung cancer Father Cancer Brother Diabetes Hypertension Alcoholism Family History: Reports: - - esophageal cancer Maternal Family History: Family History (Last Reviewed 07/17/19 @ 11:35 by GALEN Flood) Mother CAD (coronary artery disease) Lung cancer Father Cancer Brother Diabetes Hypertension Alcoholism Family History: Reports: No pertinent history Review of Systems General: Denies: Chills, Fever, Sweats Eyes: Denies: Visual changes - bilaterally, Diplopia ENT: Denies: Rhinorrhea, Sore throat Cardiovascular: Reports: Chest pain. Denies: Palpitations Respiratory: Reports: Dyspnea. Denies: Cough, Dyspnea on exertion Gastrointestinal: Reports: Nausea. Denies: Abdominal pain, Vomiting, Diarrhea, Melena, Hematochezia Genitourinary: Denies: Dysuria, Hematuria, Frequency Musculoskeletal: Denies: Back pain, Extremity Pain Skin: Denies: Rash, Wounds Neurological: Reports: Weakness. Denies: Headache, Numbness Physical Exam Vital Signs/Narrative: Vital Signs Temp Pulse Resp BP Pulse Ox 09/08/19 10:49 97.5 F L 103 H 20 H 146/93 H 99 Inital Vital Signs reviewed: Yes General: Well nourished, Well developed, No Acute Distress Head: Normocephalic, Atraumatic Eyes: Perrl, EOMI ENT: Moist mucous membranes, No rhinorrhea Neck: Supple, Nontender Cardiovascular: Regular rate, Regular rhythm, No murmurs Respiratory: No distress, CTA bilaterally, Chest nontender Abdomen: Soft, Nontender, Nondistended, Normal bowel sounds Back: Nontender, Normal Inspection Extremities: Nontender, No edema Skin: Normal color, No rash Neurological: Alert, Oriented x3, Cranial nerves II-XII grossly intact, Normal Strength, Normal Sensation Psychological: Normal affect, Normal Mood Diagnostic/Tx/Re-eval Clinical Impression(s) from Imaging Studies Chest X-Ray 09/08/19 10:58 IMPRESSION: Stable examination. No acute abnormality is seen. Electronically Signed: Mckay Blackwood, at 12:36 EST , Service support , Abnormal Lab Results 09/08/19 09/08/19 09/08/19 11:15 11:15 11:15 WBC 18.3 H RBC 4.03 L Hgb 13.5 Hct 40.0 MCV 99.3 H MCH 33.5 H MCHC 33.8 RDW Std Deviation 48.2 H RDW Coeff of Bharath 13.2 Plt Count 186 MPV 9.5 Immature Gran % (Auto) 0.500 Neut % (Auto) 91.0 H Lymph % (Auto) 3.[address] [place] % (Auto) 4.8 Eos % (Auto) 0.5 Baso % (Auto) 0.2 Absolute Neuts (auto) 16.7 H Absolute Lymphs (auto) 0.54 L Nucleated RBC % 0 Sodium 140 Potassium 3.7 Chloride 108 H Carbon Dioxide 23.0 Anion Gap 9 BUN 28 H Creatinine 1.37 H Estim Creat Clear Calc 58.22 Est GFR (MDRD) Af Amer 67 Est GFR (MDRD) Non-Af 55 L BUN/Creatinine Ratio 20.4 H Glucose 135 H Lactic Acid Calcium 9.0 Total Bilirubin 0.50 AST 11 L ALT 20 Alkaline Phosphatase 50 Troponin I < 0.015 B-Natriuretic Peptide 112.8 H Total Protein 6.7 Albumin 3.3 Globulin 3.4 Albumin/Globulin Ratio 1.0 Urine Color Urine Clarity Urine pH Ur Specific [place] Urine Protein Urine Glucose (UA) Urine Ketones Urine Occult Blood Urine Nitrite Urine Bilirubin Urine Urobilinogen Ur Leukocyte Esterase Urine RBC Urine WBC Ur Squamous Epith Cells Urine Bacteria Urine Mucus 09/08/19 09/08/19 12:05 12:35 WBC RBC Hgb Hct MCV MCH MCHC RDW Std Deviation RDW Coeff of Bharath Plt Count MPV Immature Gran % (Auto) Neut % (Auto) Lymph % (Auto) [place] % (Auto) Eos % (Auto) Baso % (Auto) Absolute Neuts (auto) Absolute Lymphs (auto) Nucleated RBC % Sodium Potassium Chloride Carbon Dioxide Anion Gap BUN Creatinine Estim Creat Clear Calc Est GFR (MDRD) Af Amer Est GFR (MDRD) Non-Af BUN/Creatinine Ratio Glucose Lactic Acid 1.7 Calcium Total Bilirubin AST ALT Alkaline Phosphatase Troponin I B-Natriuretic Peptide Total Protein Albumin Globulin Albumin/Globulin Ratio Urine Color Yellow Urine Clarity Clear Urine pH 6.0 Ur Specific [place] 1.010 Urine Protein Negative Urine Glucose (UA) Normal Urine Ketones Negative Urine Occult Blood Negative Urine Nitrite Negative Urine Bilirubin Negative Urine Urobilinogen Normal Ur Leukocyte Esterase Negative Urine RBC 0 SEEN Urine WBC 0 SEEN Ur Squamous Epith Cells 0 SEEN Urine Bacteria 0 SEEN Urine Mucus 0 SEEN - Medical Decision Making The patient presents with generalized malaise. IV was established. He denied really any infectious symptoms. He states that he has had transient chest pain which is not atypical for him. EKG was obtained which was sinus without acute ischemia. Chest x-ray shows no evidence of volume overload. Cardiac enzymes were negative. The patient does have a leukocytosis of 18,000, but has not had a fever. Urine shows no evidence of infection. Chest x-ray shows no pneumonia. With fluids, the patient states that his symptoms have totally resolved. He is feeling improved. At this point, I do not suspect a dangerous cause given the chronicity of the patient's symptoms. He wants to attempt outpatient therapy and I feel this is reasonable. He will continue oral hydration and will follow up with his primary care or return with any worsening symptoms. Impression 1. Generalized weakness ED Disposition - Plan for ED Patient: Instructions: WEAKNESS, Unk Cause Referrals: Kelley Tolbert MD [Primary Care Provider] -
[2019-09-08 11:27] LABS: Absolute Lymphocyte Count 0.54 X10^3/uL (0.83-4.51); Absolute Neutrophil Count 16.7 X10^3/uL (2.0-7.7); Basophil# 0.04 X10^3/uL; Basophil% 0.2 % (0-1); Eosinophil# 0.09 X10^3/uL; Eosinophils% 0.5 % (0-5); Hemoglobin 13.5 g/dL (13.0-16.5); Lymphocyte # 0.54 X10^3/ul (4.0); Mean Corp Hgb Conc 33.8 g/dL (32-36); Mean Corpuscular Hgb 33.5 pg (27.0-32.0); Mean Corpuscular Volume 99.3 fL (80-94); Mean Platelet Vol. 9.5 fl (6.2-12.0); Monocyte# 0.88 X10^3/uL; Monocyte% 4.8 % (0-10); NRBC Flagged by Analyzer 0 % (0-5); Neutrophil # 16.65 X10^3/uL (2.7-7.7); POSITIVE DIFFERENTIAL YES; Platelet Count 186 K/mm3 (150-450); RBC Distribution Width CV 13.2 % (11.6-14.6); RBC Distribution Width SD 48.2 fl (35.1-43.9); Red Blood Count 4.03 M/mm3 (4.6-6.2); White Blood Count 18.3 K/mm3 (4.4-11.0)
[2019-09-08 11:30] LABS: Differential Indicated SCAN CRITERIA MET
[2019-09-08 11:31] VITALS: BP 87/70; PULSE 90; RESP 18; O2SAT 96
[2019-09-08 11:44] LABS: AST(SGOT) 11 U/L (15-37); Alanine Aminotransfer ALT/SGPT 20 U/L (16-61); Albumin, Serum 3.3 g/dL (3.2-5.0); Alkaline Phosphatase 50 U/L (45-117); Anion Gap 9 (5-15); BUN 28 mg/dL (7-18); BUN/Creat Ratio 20.4 RATIO (10-20); Chloride 108 mmol/L (98-107); Creatinine, Serum 1.37 mg/dL (0.70-1.30); EST Glomerular Filtration Rate 55 mL/min (>60); Est Glom Filt Rate - Afr Amer 67 mL/min (>60); Estimated Creatinine Clearance 58.22 ml/min; Globulin 3.4 g/dL (2.2-4.2); Glucose 135 mg/dL (74-106); Potassium 3.7 mmol/L (3.5-5.1); Protein, Total 6.7 g/dL (6.4-8.2); Sodium Level 140 mmol/L (136-145)
[2019-09-08 11:49] VITALS: BP 128/83; PULSE 88; RESP 16; O2SAT 96
[2019-09-08 11:54] LABS: BNP,B-Type NATRIURETIC PEPTIDE 112.8 pg/mL (0-100)
[2019-09-08 12:42] LABS: Lactic Acid 1.7 mmol/L (0.4-1.9)
[2019-09-08 12:47] LABS: Bacteria 0 SEEN /hpf (None Seen); Mucous, Urine 0 SEEN /hpf (<or=2+); Red Blood Cells-Urine 0 SEEN /hpf (0-5); Squamous Epithelial Cells - UA 0 SEEN /hpf (0-5); White Blood Cells 0 SEEN /hpf (0-5)
[2019-09-08 12:48] LABS: Color, Urine Yellow (Yellow); Glucose, Dipstick Normal (Normal); Ketone-Dipstick Negative (Negative); Leukocyte Esterase-Dipstick Negative /ul (Negative); Nitrite-Dipstick Negative (Negative); Occult Blood-Urine Negative /ul (Negative); Protein-Dipstick Negative (Negative); Urine Bilirubin Dipstick Negative (Negative); Urine Clarity Clear (Clear); Urine Urobilinogen Normal (Normal)
[2019-09-08 12:53] VITALS: BP 108/89; BP 112/84; BP 123/104; PULSE 100; PULSE 87; PULSE 90
[2019-09-08 13:00] VITALS: BP 129/94; PULSE 87; RESP 17; O2SAT 95
== END 2019-09-08 13:20 | disposition home or self-care (01) ==
LOC: ED 11:26
PROVIDERS: Emergency Provider Emergency Medicine; PCP Internal Medicine
DX: R53.1 Weakness (principal); R07.89 Other chest pain; R06.00 Dyspnea, unspecified; R42 Dizziness and giddiness; R11.0 Nausea; I25.10 Atherosclerotic heart disease of native coronary artery without angina pectoris; Z85.818 Personal history of malignant neoplasm of other sites of lip, oral cavity, and pharynx; Z87.442 Personal history of urinary calculi; Z98.84 Bariatric surgery status; Z95.1 Presence of aortocoronary bypass graft; Z79.82 Long term (current) use of aspirin; Z79.02 Long term (current) use of antithrombotics/antiplatelets; Z79.899 Other long term (current) drug therapy
CPT/HCPCS: 71046; 80053; 81001; 83605; 83880; 84484; 85025; 93005; 99285; J7030

== ENCOUNTER 2019-10-24 07:38 | Inpatient (IN) | payer MEDICARE, MEDICAID, SELFPAY ==
[2019-10-16 08:49] VITALS: BMI 26.7
[2019-10-24] VITALS (50 sets, daily range): BP systolic 57–150; BP diastolic 39–98; PULSE 75–107; RESP 12–29; TEMP 36.8–37.8; O2SAT 84–100; BMI 29.4; BMI 29.5
--- NOTE | 2019-10-24 07:49 | RAD_ITS ---
STUDY: X-RAY CHEST REASON FOR EXAM: Male, 68 years old. Sob and cough x 1 week -- cp and nausea since last night TECHNIQUE: Single AP portable view of the chest. COMPARISON: 09/08/2019. FINDINGS: There is patchy infiltrate in the right lower lobe new since the previous examination. There is mild infiltrate in right upper lobe. There is no demonstrated pleural abnormality. Sternal cerclage wires and vascular clips are present from a prior sternotomy and coronary artery bypass graft procedure (CABG). The cardiac silhouette is within normal limits. Normal mediastinum and becca. Normal visualized pulmonary arteries. There is atherosclerotic tortuosity of the aortic arch and descending thoracic aorta. The osseous structures are unchanged. There is no demonstrated abnormality of the visualized soft tissue structures of the upper abdomen. RAD/Chest 1 View (Portable) IMPRESSION: 1. Patchy infiltrate in right lower lobe likely due to pneumonia. 2. Mild infiltrate in right upper lobe. Electronically Signed: Mervin Addison MD at 8:38 EDT Tel , Service support ,
--- NOTE | 2019-10-24 07:52 | EKG12_ITS ---
Test Reason : CHEST PAIN Blood Pressure : / mmHG Vent. Rate : 097 BPM Atrial Rate : 097 BPM P-R Int : 206 ms QRS Dur : 108 ms QT Int : 378 ms P-R-T Axes : 097 077 070 degrees QTc Int : 480 ms Normal sinus rhythm Nonspecific ST and T wave abnormality Prolonged QT Abnormal ECG When compared with ECG of 24-OCT-2019 15:15, MANUAL COMPARISON REQUIRED, DATA IS UNCONFIRMED Confirmed by LISSETTE HANNA, DELFINA ([id number]), publications editor MARCO AMBROSIO ([id number]) on 10/27/2019 8:39:27 AM Referred By: HOMERO Confirmed By:DELFINA MCLAUGHLIN MD
--- NOTE | 2019-10-24 08:00 | ED.DCSUM_ITS ---
History of Present Illness Chief Complaint: Shortness of Breath Informant: Patient Onset: Weeks Maximum Severity: Mild Narrative: Coronavirus national emergency in effect the patient no obvious exposures The patient presents with paramedics he indicates he has history of heart disease he takes heart medications indicates he has been sick for about 1 week with harsh coughing no documented fever, symptoms intensified to the point he called EMS and was brought to the hospital, indicates he is also weak having chest pain is very nauseated, indicates he has no history of COPD or pulmonary issues his heart condition has been stable, bowel and bladder habits are normal, lives with family no exposures in his been ill, for EMS his pulse ox was about 80% on room air on arrival here his pulse ox is about 80 to 84% on room air he has a very harsh dry cough his blood pressure is in normal range, he is awake and alert answering questions Past Medical History - Allergies and Home Meds Allergies/Adverse Reactions: Allergies ranolazine [From Ranexa] Adverse Reaction (Intermediate, Verified 10/24/19 07:44) wake up at night feeling like choking ciprofloxacin [From Cipro] Adverse Reaction (Verified 10/24/19 07:44) Vomiting ciprofloxacin HCl [From Cipro] Adverse Reaction (Verified 10/24/19 07:44) Vomiting metronidazole [From Flagyl] Adverse Reaction (Verified 10/24/19 07:44) Vomiting morphine Adverse Reaction (Verified 10/24/19 07:44) after 2-3 days I turn into a monster ofloxacin [From Floxin] Adverse Reaction (Verified 10/24/19 07:44) Vomiting Past Medical History: - - As above Surgical History: cholecystectomy, coronary bypass surgery, - - cholecystectomy, appendectomy, H&N surgery for tonsillar cancer, bilat carotid stenting, gastric bypass, kidney stone removal Smoking Status: Never smoker - Family History Paternal Family History: Family History (Last Reviewed 07/17/19 @ 11:35 by GALEN Flood) Mother CAD (coronary artery disease) Lung cancer Father Cancer Brother Diabetes Hypertension Alcoholism Family History: Reports: - - esophageal cancer Maternal Family History: Family History (Last Reviewed 07/17/19 @ 11:35 by GALEN Flood) Mother CAD (coronary artery disease) Lung cancer Father Cancer Brother Diabetes Hypertension Alcoholism Family History: Reports: No pertinent history Review of Systems General: Denies: Chills, Fever, Sweats Eyes: Denies: Visual changes - bilaterally, Diplopia ENT: Denies: Rhinorrhea, Sore throat Cardiovascular: Reports: Chest pain. Denies: Palpitations Respiratory: Reports: Dyspnea, Cough. Denies: Dyspnea on exertion Gastrointestinal: Reports: Abdominal pain. Denies: Nausea, Vomiting, Diarrhea, Melena, Hematochezia Genitourinary: Denies: Dysuria, Hematuria, Frequency Musculoskeletal: Denies: Back pain, Extremity Pain Skin: Denies: Rash, Wounds Neurological: Denies: Headache, Weakness, Numbness Physical Exam Vital Signs/Narrative: Vital Signs Temp Pulse Resp BP Pulse Ox 10/24/19 07:39 98.7 F 107 H 18 105/55 L 84 General: Well nourished, Well developed, No Acute Distress Head: Normocephalic, Atraumatic Eyes: Perrl, EOMI ENT: Moist mucous membranes, No rhinorrhea Neck: Supple, Nontender Cardiovascular: Regular rate, Regular rhythm, No murmurs Respiratory: No distress, Chest nontender, Rales, Diminished, Decreased Air Movement Abdomen: Soft, Nontender, Nondistended, Normal bowel sounds Back: Nontender, Normal Inspection Extremities: Nontender, No edema Skin: Normal color, No rash Neurological: Alert, Oriented x3, Cranial nerves II-XII grossly intact, Normal Strength, Normal Sensation Psychological: Normal affect, Normal Mood Diagnostic/Tx/Re-eval - Medical Decision Making The differential is rather extensive, he has no med list, he has been supplemented with oxygen we will proceed with coronavirus treatment protocols, the chest pain protocol ED evaluation Patient's initial blood pressure was about 105/80, he is dropped his pressure now to about 80 over palp, he is awake he is alert answering questions his pulse ox is 93% blood gases pending results now show pH 7.34, PCO2 46, PO2 about 80, he returns with a white count of 17,000 slightly elevated lactic acid troponin 0.8, chest x-ray shows right lower lobe infiltrate, he has 2 peripheral large bore IV, he is undergoing sepsis protocol fluids IV antibiotics, he will undergo coronavirus protocol testing, I spoke with the hospitalist I spoke with ICU attending we will continue the IV fluid bolus and arrange for his admission to the ICU He is still receiving his IV fluid boluses blood pressure improved to 119/80, currently is now 125/80 Admit Impression final respiratory failure, right lower lobe pneumonia, hypotension ED Disposition - Plan for ED Patient: Disposition: Acute Care Hospital [facility]
[2019-10-24 08:01] LABS: Absolute Lymphocyte Count 0.77 X10^3/uL (0.83-4.51); Absolute Neutrophil Count 15.3 X10^3/uL (2.0-7.7); Basophil# 0.05 X10^3/uL; Basophil% 0.3 % (0-1); Eosinophils% 0.6 % (0-5); Hematocrit 41.6 % (40-54); Hemoglobin 13.5 g/dL (13.0-16.5); Lymphocyte # 0.77 X10^3/ul (4.0); Lymphocyte % 4.5 % (19-41); Mean Corp Hgb Conc 32.5 g/dL (32-36); Mean Corpuscular Hgb 33.4 pg (27.0-32.0); Mean Platelet Vol. 9.7 fl (6.2-12.0); Monocyte% 4.7 % (0-10); NRBC Flagged by Analyzer 0 % (0-5); Neutrophil % 89.5 % (47-70); Platelet Count 220 K/mm3 (150-450); RBC Distribution Width CV 13.6 % (11.6-14.6); RBC Distribution Width SD 51.9 fl (35.1-43.9); Red Blood Count 4.04 M/mm3 (4.6-6.2); White Blood Count 17.1 K/mm3 (4.4-11.0)
[2019-10-24 08:19] LABS: Anion Gap 6 (5-15); BNP,B-Type NATRIURETIC PEPTIDE 152.1 pg/mL (0-100); BUN 34 mg/dL (7-18); BUN/Creat Ratio 21.5 RATIO (10-20); Calcium,Total 8.7 mg/dL (8.5-10.1); Chloride 109 mmol/L (98-107); Creatinine, Serum 1.58 mg/dL (0.70-1.30); EST Glomerular Filtration Rate 47 mL/min (>60); Est Glom Filt Rate - Afr Amer 57 mL/min (>60); Estimated Creatinine Clearance 50.48 ml/min; Glucose 98 mg/dL (74-106); Potassium 3.4 mmol/L (3.5-5.1); Sodium Level 143 mmol/L (136-145)
[2019-10-24] MEDS: HYDROmorphone 0.5 MG/0.5 ML SYRINGE IV (08:20)
[2019-10-24] MEDS: Ondansetron 4 MG/2 ML Vial IV (08:20)
--- NOTE | 2019-10-24 08:20 | NURSING ---
Call from lab, troponin is 0.832, Dr Suarez aware.
[2019-10-24 08:34] LABS: Lactic Acid 2.1 mmol/L (0.4-1.9)
[2019-10-24] MEDS: 0.9% Normal Saline 1,000 ML 999 ML IV ×3 (08:35→09:26)
[2019-10-24 08:39] LABS: AST(SGOT) 16 U/L (15-37); Alanine Aminotransfer ALT/SGPT 18 U/L (16-61); Albumin, Serum 3.2 g/dL (3.2-5.0); Alkaline Phosphatase 52 U/L (45-117); Bilirubin, Direct 0.13 mg/dL (0.00-0.30); Globulin 3.5 g/dL (2.2-4.2); Lipase 100 U/L (73-393); Protein, Total 6.7 g/dL (6.4-8.2)
--- NOTE | 2019-10-24 08:39 | HP.PCM_ITS ---
History of Present Illness Date of Admission: 10/24/19 Chief Complaint: shortness of breath The patient is a 68 year old M with an extensive PMH as outlined. He was admitted via the ED on 10/24/2019 with a complaint of sudden onset shortness of breath. History was mainly taken from his on the phone as patient is lethargic. Per his , patient started complaining of not feeling well yesterday. He gradually became short of breath and symptoms worsen. He had an associated cough which was dry. She denied him having any fever or chills, any nausea or vomiting and denied him having been complaining of any urinary symptoms. Review of systems was otherwise negative. Patient just kept talking incoherently when asked questions. On admission in the ED, he was hypotensive, with BP going down to the 60s systolic even with IVF administration. Vitalss were temperature of 98.4F, RR of 24 and AL of 84. He was on 15L of oxygen. Labs showed Cr of 1.58, with potassum of 3.4 and lactic acid of 2.1. Wbc was 17.1 and Hb was 13.5. Initial troponin was 0.832, and EKG showed no acute ST changes. CXR showed patchy infiltrate in right lower lobe due to pneumonia and mild infiltrate in right upper lobe. Despite being resuscitated with IVF, patient was still hypotensive. AGB piasu2h pH of 7.33, with pCO2 of 46 and pO2 of 94. I did ask ED doctor to place central line before admission from ED to ICU as blood pressure was 67/53 in ED at time hospitalist reviewed patient. BP however came up to 117/53 per ED, after patient received IVF. There were concerns about possible coronavirus infection also. Patient received a 30 mils per KG IV fluid resuscitation per sepsis protocol in the ED prior to coming up to the ICU. On coming to the ICU and been reviewed, blood pressure was down in the 60s systolic. He was admitted to be managed for septic shock due to community acquired pneumonia. Of note, he hasnt come into contact with any person with COVID 19, according to his . Patient had central line placed in ICU after consent was obtained from his over the phone. Patient was started on BIPAP after admission. He was started on IV ceftriaxone and azithromycin [] Past Medical History Past Medical History (Chronic Problems): Chronic Problems (Last Updated 09/25/19 @ 14:00 by Jocy Nguyen) Atherosclerosis of [place] coronary artery of [place] heart without angina pectoris (Chronic) Atherosclerosis of coronary artery bypass graft without angina pectoris (Chronic) Ischemic cardiomyopathy (Chronic) Chronic systolic (congestive) heart failure (Chronic) Essential hypertension (Chronic) Hyperlipidemia (Chronic) Bilateral carotid artery stenosis (Chronic) Bilateral carotid artery stenting 2018 History of throat cancer (Chronic) Medical History: Medical History (Last Updated 09/25/19 @ 14:00 by Jocy Nguyen) Atherosclerosis of [place] coronary artery of [place] heart without angina pectoris (Chronic) I25.10 Atherosclerosis of coronary artery bypass graft without angina pectoris (Chronic) I25.810 History of non-ST elevation myocardial infarction (NSTEMI) (Resolved) Onset Date: 06/17/19 I25.2 Ischemic cardiomyopathy (Chronic) I25.5 Chronic systolic (congestive) heart failure (Chronic) I50.22 CVA (cerebral vascular accident) (Resolved) Onset Date: 06/30/19 I63.9 3 mm foci of restricted diffusion in the right frontal lobe periventricular white matter and right occipital lobe subcortical white matter, consistent with small acute infarcts. Essential hypertension (Chronic) I10 Hyperlipidemia (Chronic) E78.5 Bilateral carotid artery stenosis (Chronic) I65.23 Bilateral carotid artery stenting 2018 History of throat cancer (Chronic) Z85.819 Adrenal insufficiency E27.40 BPH (benign prostatic hyperplasia) N40.0 COPD (chronic obstructive pulmonary disease) J44.9 Depression F32.9 GERD (gastroesophageal reflux disease) K21.9 History of vertebral artery stenosis Z86.79 left Hypothyroidism E03.9 TIA (transient ischemic attack) Onset Date: 07/05/19 G45.9 Acute exacerbation of CHF (congestive heart failure) (Resolved) I50.9 Vertigo (Resolved) R42 Non compliance w medication regimen (Inactive) Z91.14 Orthostatic hypotension (Inactive) I95.1 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 and treated with surgery, radiation and cis-platinin Allergies ranolazine [From Ranexa] Adverse Reaction (Intermediate, Verified 10/24/19 07:44) wake up at night feeling like choking ciprofloxacin [From Cipro] Adverse Reaction (Verified 10/24/19 07:44) Vomiting ciprofloxacin HCl [From Cipro] Adverse Reaction (Verified 10/24/19 07:44) Vomiting metronidazole [From Flagyl] Adverse Reaction (Verified 10/24/19 07:44) Vomiting morphine Adverse Reaction (Verified 10/24/19 07:44) after 2-3 days I turn into a monster ofloxacin [From Floxin] Adverse Reaction (Verified 10/24/19 07:44) Vomiting Home Medications: Ambulatory Orders Medication Instructions Recorded Clopidogrel Bisulfate [Plavix] 75 mg PO DAILY 10/12/15 albuterol sulfate 90 mcg/actuation 2 puff INHALATION Q4H PRN g 05/05/19 aerosol inhaler Aspirin E.C. [Ecotrin] 81 mg PO DAILY@0800 06/17/19 Guaifenesin [Mucinex] 1,200 mg PO Q12H 06/17/19 Multivitamin with Minerals 1 tab PO DAILY 06/17/19 [Multiple Vitamin] Pantoprazole Sodium [Protonix] 40 mg PO DAILY 06/17/19 Meclizine HCl 12.5 mg PO BID #60 tab 07/01/19 levothyroxine 100 mcg tablet 100 mcg PO MOTUWETHFR tab 07/17/19 sertraline 100 mg tablet 50 mg PO BID tab 07/17/19 lisinopril 2.5 mg tablet 2.5 mg PO DAILY #30 tab 08/18/19 potassium chloride 20 mEq 20 meq PO BID tab 08/18/19 tablet,extended release(part/cryst) prednisone 10 mg tablet 5 mg PO DAILY tab 08/18/19 Amlodipine Besylate [Norvasc] 2.5 mg PO DAILY 10/24/19 Atorvastatin Calcium [Lipitor] 20 mg PO QHS 10/24/19 Carvedilol 6.25 mg PO BID 10/24/19 Diclofenac Sodium [Voltaren] 1 applic TP DAILY 10/24/19 Fludrocortisone Acetate 0.1 mg PO TID 10/24/19 Hydrochlorothiazide 12.5 mg PO DAILY 10/24/19 Levothyroxine [Synthroid] 50 mcg PO SUSA 10/24/19 Tamsulosin HCl [Flomax] 0.4 mg PO QHS 10/24/19 busPIRone [Buspar] 5 mg PO TID 10/24/19 Surgical History: Surgical History (Last Updated 09/25/19 @ 13:57 by Jocy Nguyen) H/O coronary artery bypass surgery (Resolved) Onset Date: 02/26/13 Z95.1 CABG x 4 LEVINE-LAD, Sequential SVG to D1 and LCx, SVG to RPDA 02/26/2013 History of appendectomy Z90.49 History of cholecystectomy Z90.49 History of gastric bypass Z98.890 History of left common carotid artery stent placement Onset Date: 2017 Z890, Z95.828 History of left heart catheterization Onset Date: 06/18/19 Z98.890 History of right common carotid artery stent placement Onset Date: 2017 Z98.890, Z95.828 Surgical History: cholecystectomy, coronary bypass surgery, - - cholecystectomy, appendectomy, H&N surgery for tonsillar cancer, bilat carotid stenting, gastric bypass, kidney stone removal Psychiatric History: No pertinent psych hx Lives: Spouse/ Significant Other Smoking Status: Never smoker Alcohol: None Drugs: None - *Family History Paternal Family History: Family History (Last Reviewed 07/17/19 @ 11:35 by GALEN Flood) Mother CAD (coronary artery disease) Lung cancer Father Cancer Brother Diabetes Hypertension Alcoholism History Items: - - esophageal cancer Maternal Family History: Family History (Last Reviewed 07/17/19 @ 11:35 by GALEN Flood) Mother CAD (coronary artery disease) Lung cancer Father Cancer Brother Diabetes Hypertension Alcoholism History Items: No pertinent history Review of Systems Constitutional: Reports: Malaise, Weakness. Denies: Anorexia, Chills, Fever HEENT: Denies: Head Aches, Sinus Congestion, Sinus Drainage Cardiovascular: Denies: Chest Pain Respiratory: Reports: Cough, Shortness of Breath, Shortness of breath at rest, Shortness of breath upon exertion Gastrointestinal: Denies: Abdominal Pain, Diarrhea, Nausea, Vomiting Genitourinary: Denies: Dysuria Skin: Denies: Wounds Unable to obtain accurate/complete ROS d/t: due to patient being lethargic VTE Information - Inpt Only VTE Present on Admission: No VTE Pharm Prophylaxis ordered?: Yes Patient Problems: Active and Suspected Problems (Last Updated 09/25/19 @ 14:00 by Jocy Nguyen) Acute respiratory failure with hypoxia (Acute) Right lower lobe pneumonia (Acute) Septic shock (Acute) - Physical Exam Vitals/I&O's: Vital Signs Temp Pulse Resp BP Pulse Ox 98.3 F 92 23 H 67/53 L 93 10/24/19 08:30 10/24/19 08:30 10/24/19 08:30 10/24/19 08:30 10/24/19 08:30 Oxygen Flow Rate (L/min) 3 Oxygen Delivery Method Non-Rebreather Weight: 216 lb 14.958 oz Body Mass Index (BMI) 29.4 Finger Stick Blood Glucose 109 General: No apparent distress, Confused, Lethargic HEENT: Atraumatic, PERRLA, EOMI, Normocephalic Oral: Dry Mucosa Neck: Supple, No JVD, Negative Carotid Bruits Lungs: Tachypneic, - - decreased breath sounds bibasally, Cardiovascular: Regular rate, Regular Rhythm, Normal S1, Normal S2, No murmurs Abdomen: Bowel Sounds Present, Soft, Non Tender, - - slightly erythematous opening on abdomen- PEG tube site. Mild generalised tenderness, no guarding or rebound tenderness Extremities: No clubbing, No cyanosis, No edema, Capillary Refill Less than 3 Seconds Skin: No rashes, No breakdown Musculoskeletal: No Tenderness to Palpation of Joints or Extremities Lymphatic: No Cervical, Supraclavicular, or Inguinal Adenopathy Neurological: Cranial nerves II-XII grossly intact, - - moving all limbs spontaneously, no mouth droop. CN II-XII intact Psych/Mental Status: - - confused Microbiology Past 72 Hours 10/24/19 08:05 Mucosa - Nasopharyngeal Rapid RSV (DFA) - Final 10/24/19 08:05 Mucosa - Nasopharyngeal Influenza Types A,B Direct FA (ALEXANDRA) - Final Laboratory Results 10/24/19 07:45: WBC 17.1 H, RBC 4.04 L, Hgb 13.5, Hct 41.6, MCV 103.0 H, MCH 33.4 H, MCHC 32.5, RDW Std Deviation 51.9 H, RDW Coeff of Bharath 13.6, Plt Count 220, MPV 9.7, Immature Gran % (Auto) 0.400, Neut % (Auto) 89.5 H, Lymph % (Auto) 4.5 L, [facility] % (Auto) 4.7, Eos % (Auto) 0.6, Baso % (Auto) 0.3, Absolute Neuts (auto) 15.3 H, Absolute Lymphs (auto) 0.77 L, Nucleated RBC % 0 10/24/19 07:45: Sodium 143, Potassium 3.4 L, Chloride 109 H, Carbon Dioxide 28.0, Anion Gap 6, BUN 34 H, Creatinine 1.58 H, Estim Creat Clear Calc 50.48, Est GFR (MDRD) Af Amer 57 L, Est GFR (MDRD) Non-Af 47 L, BUN/Creatinine Ratio 21.5 H, Glucose 98, Calcium 8.7, Troponin I 0.832 H* 10/24/19 07:45: B-Natriuretic Peptide 152.1 H 10/24/19 07:45: Total Bilirubin Pending, Direct Bilirubin Pending, AST Pending, ALT Pending, Alkaline Phosphatase Pending, Troponin I Pending, Total Protein Pending, Albumin Pending, Lipase Pending 10/24/19 07:45: Lactic Acid 2.1 H* Diagnostic Data Chest X-Ray 10/24/19 11:20 IMPRESSION: 1. Left internal jugular central venous catheter in place. 2. Right lung infiltrates increased since the previous exam. Electronically Signed: Mervin Addison MD at 12:18 EDT Tel , Service support , Current Medications Sodium Chloride () 500 mls @ 999 mls/hr IV .Q31M ONE Stop: 10/24/19 08:56 Last Admin: 10/24/19 08:27 Dose: 999 mls/hr Documented by: Sodium Chloride () 1,000 mls @ 999 mls/hr IV .Q1H1M [facility]; Protocol Stop: 10/24/19 11:35 Ceftriaxone Sodium 2 gm/ (Sodium Chloride) 50 mls @ 100 mls/hr IV X1 ONE Stop: 10/24/19 09:02 Azithromycin 500 mg/ Dextrose 255 mls @ 250 mls/hr IV X1 ONE Stop: 10/24/19 09:34 Assessment/Plan All Active Problems (Last Updated 09/25/19 @ 14:00 by Jocy Nguyen) Acute respiratory failure with hypoxia (Acute) Right lower lobe pneumonia (Acute) Septic shock (Acute) H/O coronary artery bypass surgery (Resolved 02/26/13) History of non-ST elevation myocardial infarction (NSTEMI) (Resolved 06/17/19) CVA (cerebral vascular accident) (Resolved 06/30/19) Acute exacerbation of CHF (congestive heart failure) (Resolved) Dyspnea on exertion (Resolved) Vertigo (Resolved) 68 y/o admitted with a complaint of shortness of breath 1. Septic shock due to community acquired pneumonia * Patient remained hypotensive after being resuscitated with 30 cc/kg of fluid in the ED. He therefore had to have central line placed and he was initiated on Levophed. * Chest x-ray showed evidence of right upper and lower lung infiltrates. * Urine for strep and Legionella, sputum culture and blood cultures are pending. * WBC 17. SIRS score is 2/4-tachypnea and elevated white cell count. Lactic acid is also 2.1. * SOFA score is ~ 10 * on IV ceftriaxone and azithromycin. * critical care on board * titrate levophed for MAP>65 * get 2D echo * * 2. Acute hypoxic respiratory failure due to community acquired pneumonia * ABG as under 1. * Currently on BiPAP which was initiated in the ICU * continue breathing treatments with duonebs * critical care on board; titrate oxygen to maintain sats>90% 3. Elevated troponins * initial troponin is 0.832; this may be troponin leak due to septic shock * will cycle troponins, if they trend upwards, will get cardiology consult * 2D echo ordered 4. Acute metabolic encephalopathy due to community acquired pneumonia and septic shock * management as under 1 and 2 5. History of adrenal insufficiency and orthostatic hypotension * on fludrocortisone at home. This may be contributing to septic shock * started on IV hydrocortisone 100mg q8 * 6. Hypertension; BP meds on hold o/a of septic shock 7. hyperlipidemia: on statin 8. Hypothyroidism: on synthroid 9. HFrEF: not in exacerbation now. lasix on hold. 10. CAD s/p CABG: on aspirin and statin. Carvedilol, lisinopril on hold o/a of septic shock. DVT prophylaxis; lovenox GI prophylaxis: IV famotidine Code status: full code * counseled extensively about different types of CODE STATUS including full code, DNR CCA and DNR CCA. elected for patient to be full code for now. Total time spent counseling about code status, and the difference between full code, DNRCC and DNRCCA- 16 mins. Inpatient E&M: 74536 Init Hosp L3 Procedures: 26232 Advncd Care Plan 30 Min
[2019-10-24] MEDS: Ipratropium/Albuterol Sulfate 3 ML AMPUL.NEB INHALATION (08:50)
[2019-10-24 08:56] LABS: Base Excess -2 mmol/L (-2 to +2); Blood Gas Specimen Type ART; O2 Delivery Device NRB Mask; PO2 76 mmHG (75-100); SITE R Radial; SO2 94 % (95-99); Time Given 850; Total Carbon Dioxide 25 mmol/L; pH 7.33 (7.35-7.45)
--- NOTE | 2019-10-24 08:58 | NURSING ---
ICU [facility] ACUTE HYPOXIC RESP FAILURE, PNEUMONIA
--- NOTE | 2019-10-24 09:40 | NURSING ---
ICU 4
[2019-10-24] MEDS: Lactated Ringers 1,000 ML 999 ML IV (10:40)
[2019-10-24 11:07] LABS: Bacteria 0 SEEN /hpf (None Seen); Mucous, Urine 0 SEEN /hpf (<or=2+); Red Blood Cells-Urine 0 SEEN /hpf (0-5); Squamous Epithelial Cells - UA 0 SEEN /hpf (0-5); White Blood Cells 0 SEEN /hpf (0-5)
[2019-10-24 11:12] LABS: Color, Urine Yellow (Yellow); Glucose, Dipstick Normal (Normal); Ketone-Dipstick Negative (Negative); Leukocyte Esterase-Dipstick Negative /ul (Negative); Nitrite-Dipstick Negative (Negative); Occult Blood-Urine Negative /ul (Negative); Protein-Dipstick Negative (Negative); Specific Gravity, Urine 1.015 (1.002-1.030); Urine Bilirubin Dipstick Negative (Negative); Urine Clarity Clear (Clear); Urine Urobilinogen Normal (Normal)
--- NOTE | 2019-10-24 11:20 | RAD_ITS ---
STUDY: X-RAY CHEST REASON FOR EXAM: Male, 68 years old. Status post central line placement. TECHNIQUE: Single AP portable view of the chest. COMPARISON: 10/24/2019 FINDINGS: There is a new left internal jugular central venous catheter with its tip in the atriocaval junction. Right upper and lower lung infiltrates are again seen increased exam. There is no demonstrated pleural abnormality. Sternal cerclage wires and vascular clips are present from a prior sternotomy and coronary artery bypass graft procedure (CABG). Normal mediastinum and becca. Normal visualized pulmonary arteries. Normal visualized aortic arch and descending thoracic aorta. The bony structures are unchanged. There is no demonstrated abnormality of the visualized soft tissue structures of the upper abdomen. RAD/Chest 1 View (Portable) IMPRESSION: 1. Left internal jugular central venous catheter in place. 2. Right lung infiltrates increased since the previous exam. Electronically Signed: Mervin Addison MD at 12:18 EDT Tel , Service support ,
[2019-10-24 11:27] LABS: Prothrombin Time (Protime)PT. 12.9 SECONDS (11.7-14.9)
[2019-10-24 11:28] LABS: Partial Thromboplast Time 27.2 Seconds (24.1-36.2)
--- NOTE | 2019-10-24 11:39 | PCM.CON.CC ---
Problem List (1) Acute respiratory failure with hypoxia Status: Acute (2) Right lower lobe pneumonia Status: Acute Qualifiers: Pneumonia type: due to unspecified organism Qualified Code(s): J18.9 - Pneumonia, unspecified organism (3) Septic shock Status: Acute (4) Atherosclerosis of [place] coronary artery of [place] heart without angina pectoris Status: Chronic (5) H/O coronary artery bypass surgery Status: Resolved Comment: CABG x 4 LEVINE-LAD, Sequential SVG to D1 and LCx, SVG to RPDA 02/26/2013 (6) History of non-ST elevation myocardial infarction (NSTEMI) Status: Resolved (7) Ischemic cardiomyopathy Status: Chronic (8) Chronic systolic (congestive) heart failure Status: Chronic (9) CVA (cerebral vascular accident) Status: Resolved Comment: 3 mm foci of restricted diffusion in the right frontal lobe periventricular white matter and right occipital lobe subcortical white matter, consistent with small acute infarcts. (10) Essential hypertension Status: Chronic (11) Hyperlipidemia Status: Chronic Qualifiers: Hyperlipidemia type: pure hypercholesterolemia Qualified Code(s): E78.00 - Pure hypercholesterolemia, unspecified; E78.0 - Pure hypercholesterolemia (12) Bilateral carotid artery stenosis Status: Chronic Comment: Bilateral carotid artery stenting 2017 (13) History of throat cancer Status: Chronic Reason for Consult Date of Consultation: 10/24/19 Reason for Consultation: Septic shock/respiratory failure History of Present Illness: The patient is a 68 year old M, with past medical history listed below, who presented to [facility] on 10/24/2019 secondary to progressive shortness of breath and harsh cough for approximately 1 week. Patient reportedly had no documented fever, but symptoms had intensified to the point that he called EMS to be brought to the hospital. Patient reportedly had felt weak and very nauseated, but no emesis was reported. Patient denied any diarrhea or constipation. No sick contacts. Reportedly, patient saturation was 80% on room air. On arrival to the ER, patient was 80 to 84% on room air with a reported dry cough. Patient was reportedly alert, awake and answering questions at that time. There was reportedly no med list. Patient was placed on supplemental oxygen. Patient's initial blood pressure was 105/80, but this dropped to 80 over palp. ABG at that time showed a pH of 7.33 with a PO2 of 76 on a nonrebreather. I was called from the ER physician called me and stated that the hospitalist refused to accept the patient until a central line was placed. Patient had been started on a fluid bolus and reportedly had a blood pressure of 111/79 at 9:55 AM. Patient was reportedly given antibiotics and then transported to the intensive care unit at 9:55 AM. Patient arrived on the intensive care unit at 10:30 AM with a blood pressure of 68/52 saturating 89% on a nonrebreather. Patient had 2 size 20 and 1 size 22 peripheral IVs. No central line was in place. Patient was groggy and unable to provide any additional history. Hospitalist called patient's and got consent for a central line and clarified full CODE STATUS. Patient was unable to provide any additional information. Patient was originally in coronavirus isolation. Following central line placement x-ray shows a dense consolidation in the right lower lobe consistent with community-acquired pneumonia. Patient was initiated on BiPAP 10/6 centimeters of water on 50% FiO2. Patient was taken up to 100% FiO2 without improvement, so had to be increased to 12/8. Patient has responded to the increased EPAP. Currently, patient is on Levophed at 15 mcg to maintain adequate blood pressure. Unable to obtain review of systems secondary to patient's metabolic encephalopathy. Visitors are not present in the hospital secondary to the coronavirus pandemic, so history cannot be obtained from the at this time. 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 (Chronic) Ischemic cardiomyopathy (Chronic) Chronic systolic (congestive) heart failure (Chronic) Essential hypertension (Chronic) Hyperlipidemia (Chronic) Bilateral carotid artery stenosis (Chronic) Bilateral carotid artery stenting 2018 History of throat cancer (Chronic) Medical History: Medical History (Last Updated 09/25/19 @ 14:00 by Jocy Nguyen) Atherosclerosis of [place] coronary artery of [place] heart without angina pectoris (Chronic) I25.10 Atherosclerosis of coronary artery bypass 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 Essential hypertension (Chronic) I10 Hyperlipidemia (Chronic) E78.5 Bilateral carotid artery stenosis (Chronic) I65.23 Bilateral carotid artery stenting 2018 History of throat cancer (Chronic) Z85.819 Adrenal insufficiency E27.40 BPH (benign prostatic hyperplasia) N40.0 COPD (chronic obstructive pulmonary disease) J44.9 Depression F32.9 GERD (gastroesophageal reflux disease) K21.9 History of vertebral artery stenosis Z86.79 left Hypothyroidism E03.9 TIA (transient ischemic attack) Onset Date: 07/05/19 G45.9 Acute exacerbation of CHF (congestive heart failure) (Resolved) I50.9 Vertigo (Resolved) R42 Non compliance w medication regimen (Inactive) Z91.14 Orthostatic hypotension (Inactive) I95.1 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 and treated with surgery, radiation and cis-platinin Allergies ranolazine [From Ranexa] Adverse Reaction (Intermediate, Verified 10/24/19 07:44) wake up at night feeling like choking ciprofloxacin [From Cipro] Adverse Reaction (Verified 10/24/19 07:44) Vomiting ciprofloxacin HCl [From Cipro] Adverse Reaction (Verified 10/24/19 07:44) Vomiting metronidazole [From Flagyl] Adverse Reaction (Verified 10/24/19 07:44) Vomiting morphine Adverse Reaction (Verified 10/24/19 07:44) after 2-3 days I turn into a monster ofloxacin [From Floxin] Adverse Reaction (Verified 10/24/19 07:44) Vomiting Home Medications: Ambulatory Orders Medication Instructions Recorded Clopidogrel Bisulfate [Plavix] 75 mg PO DAILY 10/12/15 albuterol sulfate 90 mcg/actuation 2 puff INHALATION Q4H PRN g 05/05/19 aerosol inhaler sucralfate 1 gram tablet 1 g PO TID tab 05/05/19 Aspirin E.C. [Ecotrin] 81 mg PO DAILY@0800 06/17/19 Guaifenesin [Mucinex] 1,200 mg PO Q12H 06/17/19 Multivitamin with Minerals 1 tab PO DAILY 06/17/19 [Multiple Vitamin] Pantoprazole Sodium [Protonix] 20 mg PO BID 06/17/19 Meclizine HCl 12.5 mg PO BID #60 tab 07/01/19 levothyroxine 100 mcg tablet 100 mcg PO MOTUWETHFR tab 07/17/19 sertraline 100 mg tablet 50 mg PO BID tab 07/17/19 lisinopril 2.5 mg tablet 2.5 mg PO DAILY #30 tab 08/18/19 potassium chloride 20 mEq 20 meq PO BID tab 08/18/19 tablet,extended release(part/cryst) prednisone 10 mg tablet 5 mg PO DAILY tab 08/18/19 Amlodipine Besylate [Norvasc] 2.5 mg PO DAILY 10/24/19 Atorvastatin Calcium [Lipitor] 20 mg PO QHS 10/24/19 Carvedilol 6.25 mg PO BID 10/24/19 Diclofenac Sodium [Voltaren] 1 applic TP DAILY 10/24/19 Fludrocortisone Acetate 0.1 mg PO TID 10/24/19 Hydrochlorothiazide 12.5 mg PO DAILY 10/24/19 Levothyroxine [Synthroid] 50 mcg PO SUSA 10/24/19 Tamsulosin HCl [Flomax] 0.4 mg PO QHS 10/24/19 busPIRone [Buspar] 5 mg PO TID 10/24/19 Surgical History: Surgical History (Last Updated 09/25/19 @ 13:57 by Jocy Nguyen) H/O coronary artery bypass surgery (Resolved) Onset Date: 02/26/13 Z95.1 CABG x 4 LEVINE-LAD, Sequential SVG to D1 and LCx, SVG to RPDA 02/26/2013 History of appendectomy Z90.49 History of cholecystectomy Z90.49 History of gastric bypass Z98.890 History of left common carotid artery stent placement Onset Date: 2017 Z89, Z95.828 History of left heart catheterization Onset Date: 06/18/19 Z98.890 History of right common carotid artery stent placement Onset Date: 2017 Z., Z95.828 Surgical History: cholecystectomy, coronary bypass surgery, - - cholecystectomy, appendectomy, H&N surgery for tonsillar cancer, bilat carotid stenting, gastric bypass, kidney stone removal Psychiatric History: No pertinent psych hx Smoking Status: Never smoker - *Family History Paternal Family History: Family History (Last Reviewed 07/17/19 @ 11:35 by GALEN Flood) Mother CAD (coronary artery disease) Lung cancer Father Cancer Brother Diabetes Hypertension Alcoholism History Items: - - esophageal cancer Maternal Family History: Family History (Last Reviewed 07/17/19 @ 11:35 by GALEN Flood) Mother CAD (coronary artery disease) Lung cancer Father Cancer Brother Diabetes Hypertension Alcoholism History Items: No pertinent history Review of Systems Unable to obtain accurate/complete ROS d/t: Current mental status Patient Problems: Active and Suspected Problems (Last Updated 09/25/19 @ 14:00 by Jocy Nguyen) Acute respiratory failure with hypoxia (Acute) Right lower lobe pneumonia (Acute) Septic shock (Acute) Objective: Multiple x-rays were reviewed. Patient had a right lower lobe infiltrate on presentation and this has become more dense with hydration following central line chest x-ray. Procedure report: After hospitalist obtained informed consent over the phone, patient was prepped in a sterile fashion for central line placement. Right IJ was atretic and difficult to visualize with approximately inner diameter of 1 cm. Left IJ was much better. This area was prepped in a sterile fashion. Appropriate area was anesthetized with subcutaneous lidocaine and vessel was cannulated using a modified Seldinger technique. Nonpulsatile blood flow noted and guidewire visualized using ultrasound. Line was sutured in place using provided silk with interrupted sutures. Placement was confirmed using chest x-ray and showed no pneumothorax. No complications were noted. EBL approximately 30 cc - Physical Exam Vitals/I&O's: Vital Signs Temp Pulse Resp BP Pulse Ox 36.9 C 84 24 H 77/55 L 94 10/24/19 09:36 10/24/19 11:15 10/24/19 09:36 10/24/19 11:15 10/24/19 09:36 Oxygen Flow Rate (L/min) 15 Oxygen Delivery Method Non-Rebreather Weight: 98.7 kg Body Mass Index (BMI) 29.5 Finger Stick Blood Glucose 109 Intake and Output for Last 24 Hours 10/22/19 10/23/19 10/24/19 23:59 23:59 23:59 Intake Total 3552.51 / 3552.51 Balance 3552.51 / 3552.51 General: Confused, Disoriented, Lethargic, - - Appears stated age HEENT: Atraumatic, PERRLA, EOMI, Normocephalic, - - Scleral injection Oral: Moist Mucosa, No Gingival or Mucosal Lesions/ Ulcerations Neck: Supple, No JVD, No Nodes, Trachea Midline Lungs: No wheeze, No rales, Rhonchi - Right base, - - Symmetric expansion. No dullness to percussion Cardiovascular: Regular rate, Regular Rhythm, Normal S1, Normal S2, No murmurs, No rub noted, No Gallop Abdomen: Bowel Sounds Present, Soft, Non Tender, Non-Distended Extremities: No clubbing, No cyanosis, No edema, Diminished Peripheral Pulses Skin: No rashes, No breakdown Musculoskeletal: No Tenderness to Palpation of Joints or Extremities Lymphatic: No Cervical, Supraclavicular, or Inguinal Adenopathy Neurological: Neuro grossly intact - Unable to follow commands, but spontaneously moves all extremities and attempts to make eye contact. No facial droop appreciated. Psych/Mental Status: Flat Affect Microbiology Past 72 Hours 10/24/19 11:00 Urine Catheter - [place] Streptococcus pneumoniae Antigen (M - Final 10/24/19 11:00 Urine Catheter - [place] Legionella Antigen - Final 10/24/19 08:49 Mucosa - Nasopharyngeal Respiratory Panel (PCR) - Final 10/24/19 08:05 Mucosa - Nasopharyngeal Rapid RSV (DFA) - Final 10/24/19 08:05 Mucosa - Nasopharyngeal Influenza Types A,B Direct FA (ALEXANDRA) - Final Laboratory Results 10/24/19 07:45: WBC 17.1 H, RBC 4.04 L, Hgb 13.5, Hct 41.6, MCV 103.0 H, MCH 33.4 H, MCHC 32.5, RDW Std Deviation 51.9 H, RDW Coeff of Bharath 13.6, Plt Count 220, MPV 9.7, Immature Gran % (Auto) 0.400, Neut % (Auto) 89.5 H, Lymph % (Auto) 4.5 L, [place] % (Auto) 4.7, Eos % (Auto) 0.6, Baso % (Auto) 0.3, Absolute Neuts (auto) 15.3 H, Absolute Lymphs (auto) 0.77 L, Nucleated RBC % 0 10/24/19 07:45: Sodium 143, Potassium 3.4 L, Chloride 109 H, Carbon Dioxide 28.0, Anion Gap 6, BUN 34 H, Creatinine 1.58 H, Estim Creat Clear Calc 50.48, Est GFR (MDRD) Af Amer 57 L, Est GFR (MDRD) Non-Af 47 L, BUN/Creatinine Ratio 21.5 H, Glucose 98, Calcium 8.7, Troponin I 0.832 H* 10/24/19 07:45: B-Natriuretic Peptide 152.1 H 10/24/19 07:45: Total Bilirubin 0.80, Direct Bilirubin 0.13, AST 16, ALT 18, Alkaline Phosphatase 52, Troponin I Cancelled, Total Protein 6.7, Albumin 3.2, Globulin 3.5, Lipase 100 10/24/19 07:45: Lactic Acid 2.1 H* 10/24/19 07:45: PT 12.9, INR 1.0, APTT 27.2 10/24/19 08:51: Specimen Type ART, Sample Site R Radial, pH 7.33 L, Bicarbonate Actual 24.0, POC Total CO2 25, Base Excess -2, O2 Saturation 94 L, ABG pCO2 46.0 H, ABG pO2 76, Daniel Test NA, O2 Delivery Device NRB Mask, Liter Flow 15.0, Blood Gas Notified Whom ED MD, Blood Gas Notified Time 850 10/24/19 09:00: Miscellaneous Test Pending 10/24/19 11:00: Urine Color Yellow, Urine Clarity Clear, Urine pH 6.0, Ur Specific [place] 1.015, Urine Protein Negative, Urine Glucose (UA) Normal, Urine Ketones Negative, Urine Occult Blood Negative, Urine Nitrite Negative, Urine Bilirubin Negative, Urine Urobilinogen Normal, Ur Leukocyte Esterase Negative, Urine RBC 0 SEEN, Urine WBC 0 SEEN, Ur Squamous Epith Cells 0 SEEN, Urine Bacteria 0 SEEN, Urine Mucus 0 SEEN Current Medications Acetaminophen (Tylenol) 650 mg PO Q6H PRN PRN PRN Reason: Pain Score 1-10/Temp > 100.7 F Albuterol Sulfate (Ventolin Aerosols) 2.5 mg INHALATION Q4H PRN PRN Reason: SOB &/OR WHEEZING Aspirin (Ecotrin) 81 mg PO DAILY@0800 [facility] Atorvastatin Calcium (Lipitor) 20 mg PO QHS TEO Buspirone HCl (Buspar) 5 mg PO TID [facility] Clopidogrel Bisulfate (Plavix) 75 mg PO DAILY [facility] Enoxaparin Sodium (Lovenox) 40 mg SC DAILY [facility] Fludrocortisone Acetate (Florinef) 0.1 mg PO TID [facility] Glucagon () 1 mg IM .X1 PRN PRN Reason: Hypoglycemia Guaifenesin (Mucinex) 1,200 mg PO BID [facility] Sodium Chloride () 250 mls @ 15 mls/hr IV .[id number] PRN PRN Reason: Saline Flush Sodium Chloride () 250 mls @ 15 mls/hr IV .[id number] PRN PRN Reason: Additional IVPB Infusion Norepinephrine Bitartrate 8 mg (/ Sodium Chloride) 250 mls @ 9.375 mls/hr CONT INF .[id number] [facility]; Protocol Last Titration: 10/24/19 11:15 Dose: 15 mcg/min, 28.1 mls/hr Documented by: Sodium Chloride () 1,000 mls @ 999 mls/hr IV .Q1H1M [facility]; Protocol Stop: 10/24/19 14:00 Ceftriaxone Sodium 2 gm/ (Sodium Chloride) 50 mls @ 100 mls/hr IV Q24 [facility] Azithromycin 500 mg/ Dextrose 255 mls @ 250 mls/hr IV Q24 [facility] Dextrose (Dextrose 10%-Water) 250 mls @ 999 mls/hr IV .Q16M PRN; Protocol PRN Reason: HYPOGLYCEMIA Levothyroxine Sodium (Synthroid) 50 mcg PO SuSa@0600 [facility] Levothyroxine Sodium (Synthroid) 100 mcg PO MoTuWeThFr@0600 [facility] Meclizine HCl (Antivert) 12.5 mg PO BID [facility] Multivitamins/Minerals (Multivitamin With Minerals (Bkc)) 1 tablet PO DAILY@0800 [facility] Ondansetron HCl (Zofran) 4 mg IV Q8H PRN PRN PRN Reason: NAUSEA/VOMITING Pantoprazole Sodium (Protonix) 20 mg PO BID [facility] Potassium Chloride (K-Dur) 20 meq PO BID [facility] Sertraline HCl (Zoloft) 50 mg PO BID [facility] Sodium Chloride () 10 - 40 ml IV UD PRN PRN Reason: SALINE FLUSH Sucralfate (Carafate) 1 gm PO TID [facility] Clinical Impression(s) from Imaging Studies Chest X-Ray 10/24/19 07:49 IMPRESSION: 1. Patchy infiltrate in right lower lobe likely due to pneumonia. 2. Mild infiltrate in right upper lobe. Electronically Signed: Mervin Addison MD at 8:38 EDT Tel , Service support , Assessment/Plan Active and Suspected Problems (Last Updated 09/25/19 @ 14:00 by Jocy Nguyen) Acute respiratory failure with hypoxia (Acute) Right lower lobe pneumonia (Acute) Septic shock (Acute) RECOMMENDATIONS: 1. Continue empiric antibiotics for community-acquired pneumonia 2. Wean Levophed as tolerated 3. ABG in 1 hour on current BiPAP settings 4. Potential intubation 5. Okay to discontinue coronavirus precautions. Do not send COVID-19 given recent CDC guidelines IMPRESSIONS: 1. Septic shock/adrenal insufficiency secondary to right lower lobe community-acquired pneumonia Patient now with a central line in place and pressors. Anticipate initiation of vasopressin if Levophed demands continue to rise. Patient is on appropriate antibiotics at this time. Panculture has been ordered, but unfortunately urine and second blood culture were after antibiotics, so yield may be limited. Patient does have a reported history of adrenal insufficiency. Will discontinue Florinef and add hydrocortisone for stress dose steroids. 2. Acute hypoxic respiratory failure secondary to right lower lobe community-acquired pneumonia Patient with progressive right lower lobe infiltrate. Patient will be at risk for development of ARDS given delayed presentation. Patient is tolerating BiPAP at this time, but may continue to decompensate over the next 24 hours. Cannot exclude the need for intubation. Patient has been verified a full code. Patient carries a diagnosis of COPD, but no pulmonary function tests are available for review. Okay to use aerosols. 3. Acute on chronic systolic congestive heart failure secondary to septic shock Patient with last known ejection fraction of 45%. Patient with progressive hypoxia likely a combination of both acute pneumonia and congestive heart failure given volume resuscitation. Patient has received a 30 cc/kg of fluids. Pressors have been initiated. Clinical suspicion for mild elevation of troponin secondary to hypoxia. 4. Hypertension/hyperlipidemia/depression/GERD/hypothyroidism/vertigo/orthostatic hypotension Complicates care, management, recovery and prognosis. Patient may have difficulty taking p.o. medications. Respiratory depressants will be discontinued. Meclizine will also be discontinued. Patient should have hypertensive medications held secondary to septic shock. May reinitiate some home medications if patient requires intubation TIME: 80 minutes of critical care time, excluding procedures, was spent addressing patient's septic shock, acute hypoxic respiratory failure, CHF, review of all data and collaboration with care team (10:30 AM to 12:17 PM) 9xxxx: [id number] Critical care first hour - and [id number] - 80 minutes critical care time Multi [facility] Codes - Hospitalists' Procedures Procedures: [id number] Insert Non-tunnel CV Cath
[2019-10-24 12:14] LABS: Reflex Lactate? Y
[2019-10-24] MEDS: Famotidine 200 MG/20 ML MDV 20 MG in 0.9% Normal Saline (Pres. free 8 ML 300 MG IV ×2 (13:03→21:06)
--- NOTE | 2019-10-24 13:32 | CM.UR ---
This patient is on isolation and on bipap so unable to participate in RN CM assmt. He is a new admission this am. RN caring for patient was on phone with daughter and so I asked to speak with her to do assmt. Daughter denied knowing the answers to the first couple questions but states she will talk to her mom. States she will call me back this afternoon. Explained that he was just admitted and we did not have to get this done today however she insisted calling me back today. Gave her the number I am working from and explained it is only for today. Explained I was given this phone just for use today and I'm not even sure who uses it the rest of the week. She verb understanding. Johnson Ivory RN, CCM.
[2019-10-24 13:34] LABS: Lactic Acid 1.4 mmol/L (0.4-1.9)
--- NOTE | 2019-10-24 14:20 | EKG12_ITS ---
Test Reason : ELEVATED TROPONIN Blood Pressure : / mmHG Vent. Rate : 079 BPM Atrial Rate : 079 BPM P-R Int : 158 ms QRS Dur : 098 ms QT Int : 380 ms P-R-T Axes : 032 068 110 degrees QTc Int : 435 ms Normal sinus rhythm Nonspecific ST and T wave abnormality Abnormal ECG When compared with ECG of 24-OCT-2019 08:05, MANUAL COMPARISON REQUIRED, DATA IS UNCONFIRMED Confirmed by LISSETTE HANNA, DELFINA ([id number]), editor city [place] ([id number]) on 10/27/2019 8:39:41 AM Referred By: EMMANUEL Confirmed By:DELFINA MCLAUGHLIN MD
[2019-10-24] MEDS: Hydrocortisone Sod Succinate 100 MG/2 ML Vial IV ×2 (14:56→21:08)
[2019-10-24] MEDS: 0.9% Saline Lock 10 ML Syringe IV (14:57)
[2019-10-24] MEDS: Acetaminophen 325 MG Tablet 650 MG PO (15:08)
--- NOTE | 2019-10-24 15:47 | CON.PCM_ITS ---
Problem List (1) Elevated troponin Status: Acute Reason for Consult Date of Consultation: 10/24/19 Reason for Consultation: Elevated troponin in a septic patient History of Present Illness: The patient is a 68 year old M who was admitted yesterday for respiratory failure due to pneumonia. He was septic with hypotension required fluid resuscitation and IV Levophed. Patient is on high flow oxygen at the moment. Heart rate in the 70s and oxygen saturation 100%. Blood pressure is acceptable on 15mcg of Levophed. He denies having any chest pain. His cardiac history dates back to 2012 at that time patient had 4 grafts bypass. He had LEVINE graft to the left anterior descending, sequential venous graft to the diagonal and marginal branch as well as venous graft to the distal right coronary artery. Repeat cardiac catheterization was done June 2019 and showed patent LEVINE graft to the left anterior descending, occluded graft to the distal right coronary artery, the sequential graft only showed patent limb to the diagonal branch. Echocardiogram showed ejection fraction of 45%. Patient was treated medically at that time. In the good day, patient could walk through [employer] with no difficulty. He also has had bilateral carotid stenting. On admission troponin was elevated. EKG showed ST downsloping with T wave inversion seen in 1 and aVL more or less the same compared to EKG done several months ago. Repeat EKG this morning was similar. Blood work showed stage III 8 renal insufficiency. He has been treated for hypertension and hyperlipidemia in the past. [] Past Medical History Allergies/Adverse Reactions: Allergies ranolazine [From Ranexa] Adverse Reaction (Intermediate, Verified 10/24/19 07:44) wake up at night feeling like choking ciprofloxacin [From Cipro] Adverse Reaction (Verified 10/24/19 07:44) Vomiting ciprofloxacin HCl [From Cipro] Adverse Reaction (Verified 10/24/19 07:44) Vomiting metronidazole [From Flagyl] Adverse Reaction (Verified 10/24/19 07:44) Vomiting morphine Adverse Reaction (Verified 10/24/19 07:44) after 2-3 days I turn into a monster ofloxacin [From Floxin] Adverse Reaction (Verified 10/24/19 07:44) Vomiting Home Medications: Ambulatory Orders Medication Instructions Recorded Clopidogrel Bisulfate [Plavix] 75 mg PO DAILY 10/12/15 albuterol sulfate 90 mcg/actuation 2 puff INHALATION Q4H PRN g 05/05/19 aerosol inhaler Aspirin E.C. [Ecotrin] 81 mg PO DAILY@0800 06/17/19 Guaifenesin [Mucinex] 1,200 mg PO Q12H 06/17/19 Multivitamin with Minerals 1 tab PO DAILY 06/17/19 [Multiple Vitamin] Pantoprazole Sodium [Protonix] 40 mg PO DAILY 06/17/19 Meclizine HCl 12.5 mg PO BID #60 tab 07/01/19 levothyroxine 100 mcg tablet 100 mcg PO MOTUWETHFR tab 07/17/19 sertraline 100 mg tablet 50 mg PO BID tab 07/17/19 lisinopril 2.5 mg tablet 2.5 mg PO DAILY #30 tab 08/18/19 potassium chloride 20 mEq 20 meq PO BID tab 08/18/19 tablet,extended release(part/cryst) prednisone 10 mg tablet 5 mg PO DAILY tab 08/18/19 Amlodipine Besylate [Norvasc] 2.5 mg PO DAILY 10/24/19 Atorvastatin Calcium [Lipitor] 20 mg PO QHS 10/24/19 Carvedilol 6.25 mg PO BID 10/24/19 Diclofenac Sodium [Voltaren] 1 applic TP DAILY 10/24/19 Fludrocortisone Acetate 0.1 mg PO TID 10/24/19 Hydrochlorothiazide 12.5 mg PO DAILY 10/24/19 Levothyroxine [Synthroid] 50 mcg PO SUSA 10/24/19 Tamsulosin HCl [Flomax] 0.4 mg PO QHS 10/24/19 busPIRone [Buspar] 5 mg PO TID 10/24/19 Past Medical History (Chronic Problems): Chronic Problems (Last Updated 09/25/19 @ 14:00 by Jocy Nguyen) Atherosclerosis of [place] coronary artery of [place] heart without angina pectoris (Chronic) Atherosclerosis of coronary artery bypass graft without angina pectoris (Chronic) Ischemic cardiomyopathy (Chronic) Chronic systolic (congestive) heart failure (Chronic) Essential hypertension (Chronic) Hyperlipidemia (Chronic) Bilateral carotid artery stenosis (Chronic) Bilateral carotid artery stenting 2017 History of throat cancer (Chronic) Surgical History: cholecystectomy, coronary bypass surgery, - - cholecystectomy, appendectomy, H&N surgery for tonsillar cancer, bilat carotid stenting, gastric bypass, kidney stone removal Psychiatric History: No pertinent psych hx - *Family History Paternal Family History: Family History (Last Reviewed 07/17/19 @ 11:35 by GALEN Flood) Mother CAD (coronary artery disease) Lung cancer Father Cancer Brother Diabetes Hypertension Alcoholism History Items: - - esophageal cancer Maternal Family History: Family History (Last Reviewed 07/17/19 @ 11:35 by GALEN Flood) Mother CAD (coronary artery disease) Lung cancer Father Cancer Brother Diabetes Hypertension Alcoholism History Items: No pertinent history Lives: Spouse/ Significant Other Smoking Status: Never smoker Alcohol: None Drugs: None Review of Systems - Review of Systems General: Denies: Fever, Night Sweats, Fatigue Cardiovascular: Denies: Chest Discomfort, Shortness of Breath, Orthopnea, PND, Peripheral Edema, Palpitations, Lightheadedness, Dizziness, Near Syncope, Syncope Respiratory: Reports: Cough, Non Productive Cough, Shortness of Breath. Denies: Sputum Production, Hemoptysis Gastrointestinal: Denies: Hematemesis, Hematochezia, Melena Genitourinary: Denies: Dysuria, Hematuria Skin: Denies: Rash Neurological: Reports: Weakness Objective: Vital Signs Temp Pulse Resp BP Pulse Ox 100.1 F H 79 23 H 86/64 L 99 10/24/19 13:30 10/24/19 13:30 10/24/19 13:30 10/24/19 13:30 10/24/19 13:30 Oxygen Flow Rate (L/min) 15 Oxygen Delivery Method Bi-pap Weight: 217 lb 9.54 oz Body Mass Index (BMI) 29.5 Finger Stick Blood Glucose 109 Intake and Output for Last 24 Hours 10/22/19 10/23/19 10/24/19 23:59 23:59 23:59 Intake Total 4878.44 / 4878.44 Output Total 550 / 550 Balance 4328.44 / 4328.44 General: Awake, Alert, Oriented x 3, - - Hard of hearing HEENT: PERRL, EOMI, Sclera Non Icteric, - - Normal neck vein, negative HJR Neck: Supple, Good ROM, No Lymph Node Enlargement Cardiovascular: Regular Rhythm, Normal S1 - Normal neck vein, negative HJR, Normal S2, No Murmurs, No Rubs, No Gallops Vascular: No Carotid Bruits, Normal Femoral Pulses, Normal Radial Pulses, Normal Dorsalis Pedal Pulse, Normal Posterior Tibial Pulses Abdomen: Bowel Sounds Present, Soft, Non Tender, No HSM, No Organomegaly Extremities: No Cyanosis, No Clubbing, No edema, - - Mild degree of tenderness on palpation of the upper quadrants Neurological: No Focal Motor or Sensory Deficit, - - Hard of hearing 10/24/19 07:45: WBC 17.1 H, RBC 4.04 L, Hgb 13.5, Hct 41.6, MCV 103.0 H, MCH 33.4 H, MCHC 32.5, Plt Count 220, MPV 9.7, Immature Gran % (Auto) 0.400, Neut % (Auto) 89.5 H, Lymph % (Auto) 4.5 L, [place] % (Auto) 4.7, Eos % (Auto) 0.6, Baso % (Auto) 0.3, Absolute Neuts (auto) 15.3 H, Nucleated RBC % 0 10/24/19 07:45: Sodium 143, Potassium 3.4 L, Chloride 109 H, Carbon Dioxide 28.0, Anion Gap 6, BUN 34 H, Creatinine 1.58 H, Est GFR (MDRD) Af Amer 57 L, Est GFR (MDRD) Non-Af 47 L, BUN/Creatinine Ratio 21.5 H, Glucose 98, Calcium 8.7, Troponin I 0.832 H* 10/24/19 07:45: B-Natriuretic Peptide 152.1 H 10/24/19 07:45: Total Bilirubin 0.80, Direct Bilirubin 0.13, Troponin I Cancelled 10/24/19 07:45: Lactic Acid 2.1 H* 10/24/19 07:45: PT 12.9, INR 1.0, APTT 27.2 10/24/19 08:51: pH 7.33 L, Bicarbonate Actual 24.0, POC Total CO2 25, Base Excess -2, O2 Saturation 94 L, ABG pCO2 46.0 H, ABG pO2 76, Daniel Test NA 10/24/19 11:00: Urine Color Yellow, Urine Clarity Clear, Urine pH 6.0, Ur Specific [place] 1.015, Urine Protein Negative, Urine Glucose (UA) Normal, Urine Ketones Negative, Urine Occult Blood Negative, Urine Nitrite Negative, Urine Bilirubin Negative, Urine Urobilinogen Normal, Ur Leukocyte Esterase Negative, Urine RBC 0 SEEN, Urine WBC 0 SEEN 10/24/19 13:02: Lactic Acid 1.4 10/24/19 13:24: Troponin I 1.370 H* Rhythm: EKG: ECHO: Stress Test: Cardiac Cath: PCI: CT Surgery: Holter monitor: EPS: PPM: CXR: Chest CT Scan: Assessment/Plan #1 type II myocardial infarct secondary to septic shock. The elevated troponin is secondary to type II myocardial infarct and aggravated by stage IIIa renal insufficiency. The septic shock seems to be controlled with fluid resuscitation and IV pressor. There is no evidence of decompensation of the left ventricular function. I will continue fluid resuscitation as needed and IV pressor preferably using Levophed. With type II myocardial infarct, cardiac investigation or cardiac catheterization should be postponed until hemodynamically stable. Repeat echocardiogram will be scheduled. Continue aspirin and statin #2 history of CABG 2012. Repeat cardiac catheterization showed patent LEVINE angel t of the left anterior descending, occluded graft to the distal right coronary artery, sequential graft only showed patent LEVINE to the diagonal branch. Ejection fraction from echocardiogram done 4 months ago was 45%. Patient has been treated successfully with conservative medical management in the past several months. #3 stage IIIA renal insufficiency #4 bilateral carotid stenting #5 hypertension and hyperlipidemia
[2019-10-24 15:56] LABS: Base Excess -3 mmol/L (-2 to +2); Bicarbonate 22.9 mmol/L (22-26); Blood Gas Specimen Type ART; EPAP 8; FI02 65; IPAP 14; PO2 117 mmHG (75-100); RR 12; SITE R Radial; SO2 98 % (95-99); Time Given 1551; Total Carbon Dioxide 24 mmol/L; pCO2 40.9 mmHg (35-45); pH 7.36 (7.35-7.45)
--- NOTE | 2019-10-24 19:05 | CPS ---
decreased FIO2 to 30%
[2019-10-24] MEDS: Atorvastatin Calcium 20 MG Tablet PO (21:10)
[2019-10-24] MEDS: guaiFENesin 1,200 MG Tablet 1200 MG PO (21:11)
[2019-10-24] MEDS: Sertraline 50 MG Tablet PO (21:11)
--- NOTE | 2019-10-24 22:05 | CPS ---
decreased FiO2 to 25%
[2019-10-25] VITALS (30 sets, daily range): BP systolic 102–171; BP diastolic 79–111; PULSE 78–107; RESP 12–22; TEMP 36.6–37.4; O2SAT 90–98
[2019-10-25 04:57] LABS: Absolute Lymphocyte Count 0.51 X10^3/uL (0.83-4.51); Absolute Neutrophil Count 28.8 X10^3/uL (2.0-7.7); Basophil# 0.06 X10^3/uL; Basophil% 0.2 % (0-1); Eosinophil# 0.14 X10^3/uL; Eosinophils% 0.5 % (0-5); Hematocrit 37.9 % (40-54); Hemoglobin 12.1 g/dL (13.0-16.5); Lymphocyte # 0.51 X10^3/ul (4.0); Lymphocyte % 1.7 % (19-41); Mean Corp Hgb Conc 31.9 g/dL (32-36); Mean Corpuscular Hgb 32.9 pg (27.0-32.0); Mean Platelet Vol. 9.9 fl (6.2-12.0); Monocyte# 1.01 X10^3/uL; Monocyte% 3.3 % (0-10); NRBC Flagged by Analyzer 0 % (0-5); Neutrophil # 28.76 X10^3/uL (2.7-7.7); Neutrophil % 92.9 % (47-70); POSITIVE COUNT YES; POSITIVE DIFFERENTIAL YES; Platelet Count 197 K/mm3 (150-450); RBC Distribution Width CV 13.8 % (11.6-14.6); RBC Distribution Width SD 52.7 fl (35.1-43.9); Red Blood Count 3.68 M/mm3 (4.6-6.2)
[2019-10-25 05:14] LABS: Anion Gap 4 (5-15); BUN 25 mg/dL (7-18); BUN/Creat Ratio 19.4 RATIO (10-20); Calcium,Total 8.5 mg/dL (8.5-10.1); Chloride 110 mmol/L (98-107); Creatinine, Serum 1.29 mg/dL (0.70-1.30); EST Glomerular Filtration Rate 59 mL/min (>60); Est Glom Filt Rate - Afr Amer 72 mL/min (>60); Estimated Creatinine Clearance 61.83 ml/min; Glucose 109 mg/dL (74-106); Potassium 4.3 mmol/L (3.5-5.1); Sodium Level 141 mmol/L (136-145)
--- NOTE | 2019-10-25 05:55 | ECHOD_ITS ---
Reason For Study: Sepsis, pneumonia Procedure This was a 2D Doppler, Color Flow transthoracic echocardiogram. The study was technically difficult. Exam performed portable in ICU/CCU. Left Ventricle Normal LV size. Moderate concentric left ventricular hypertrophy. Left ventricular systolic function is normal. The estimated ejection fraction is 60 %. Normal diastology for age. No regional wall motion abnormalities noted. Right Ventricle Normal RV size. Normal systolic function. Atria Normal left atrium. Normal right atrium. Mitral Valve Normal mitral valve. Tricuspid Valve Normal tricuspid valve. Aortic Valve The aortic valve is not well visualized. Pulmonic Valve The pulmonic valve is not well visualized. Great Vessels Normal aortic root. The pulmonary artery is normal size. Normal inferior vena cava. Pericardium/Pleural No pericardial effusion. Medication Diluted definity 3ml given slow IV push to enhance endocardial definition. MMode/2D Measurements & Calculations LVIDd: 5.1 cm IVSd: 1.6 cm Ao root diam: 3.8 cm LVIDs: 4.0 cm LVPWd: 1.3 cm RVDd: 3.4 cm FS: 21.6 % LAV(MOD-bp): 46.2 ml LA A4 area: 13.7 cm2 LA dimension(2D): 3.8 cm LAV(MOD-bp) Indexed: 21.2 ml/m2 LAV(MOD-sp2): 58.0 ml LAV(MOD-sp4): 33.3 ml RA A4 area: 13.2 cm2 Doppler Measurements & Calculations MV E max aaron: 75.2 cm/sec Lat Peak E' Aaron: 10.2 cm/sec Med Peak E' Aaron: 5.9 cm/sec MV A max aaron: 93.3 cm/sec E/E' lat: 7.4 E/E' med: 12.6 MV E/A: 0.81 Ao V2 max: 159.9 cm/sec LV V1 max: 123.3 cm/sec PA V2 max: 103.8 cm/sec Ao max P.2 mmHg LV V1 max P.1 mmHg Interpretation Summary Normal LV size. Moderate concentric left ventricular hypertrophy. Left ventricular systolic function is normal. The estimated ejection fraction is 60 %. Contrast injection was performed. Ordering Physician: Shanda Andrade Referring Physician: Kelley Tolbert Performed By: Yumiko Rodrigez RDCS
[2019-10-25] MEDS: Levothyroxine 50 MCG Tablet PO (05:57)
[2019-10-25] MEDS: Hydrocortisone Sod Succinate 100 MG/2 ML Vial IV ×2 (05:57→21:06)
[2019-10-25 06:20] LABS: Differential Indicated SCAN CRITERIA MET; White Blood Count 30.9 K/mm3 (4.4-11.0)
--- NOTE | 2019-10-25 06:41 | PN_ITS ---
Subjective: Patient did well overnight. Patient reports subjective improvement in overall condition. Patient was able to come off of Levophed at approximately 9 PM last night. Patient was also able to be titrated to 4 L nasal cannula. Patient continues to have a cough that is relatively productive. General: Alert, Oriented x3, Cooperative, No apparent distress, Well developed, Well nourished, - - Mild conversational dyspnea. HEENT: Atraumatic, PERRLA, EOMI, Normocephalic, - - No scleral icterus or in jection noted Oral: Moist Mucosa, No Gingival or Mucosal Lesions/ Ulcerations Neck: Supple, No JVD, No Nodes, Trachea Midline Lungs: No wheeze, No rales, Rhonchi - Right base, - - Symmetric expansion. No dullness to percussion. Cardiovascular: Regular rate, Regular Rhythm, Normal S1, Normal S2, No murmurs, No rub noted, No Gallop Abdomen: Bowel Sounds Present, Soft, Non Tender, Non-Distended Extremities: No clubbing, No cyanosis, Edema Skin: No rashes, No breakdown Musculoskeletal: No Tenderness to Palpation of Joints or Extremities Lymphatic: No Cervical, Supraclavicular, or Inguinal Adenopathy Neurological: Cranial nerves II-XII grossly intact, Neuro grossly intact, Motor Exam 5/5 strength throughout Psych/Mental Status: Alert and oriented to time, place, person, mood and affect Vital Signs Temp Pulse Resp BP Pulse Ox 37.1 C 90 20 H 124/90 H 96 10/25/19 05:59 10/25/19 05:59 10/25/19 05:59 10/25/19 05:59 10/25/19 05:59 Oxygen Flow Rate (L/min) 4 Oxygen Delivery Method Nasal Cannula Weight: 96.7 kg Body Mass Index (BMI) 29.5 Finger Stick Blood Glucose 109 Intake and Output for Last 24 Hours 10/23/19 10/24/19 10/25/19 23:59 23:59 23:59 Intake Total 5039.38 / 5279.38 360 / 360 Output Total 1100 / 1750 1200 / 1200 Balance 3939.38 / 3529.38 -840 / -840 Labs (Last 48 Hours) 10/24/19 10/24/19 10/24/19 07:45 07:45 07:45 WBC 17.1 H RBC 4.04 L Hgb 13.5 Hct 41.6 MCV 103.0 H MCH 33.4 H MCHC 32.5 RDW Std Deviation 51.9 H RDW Coeff of Bharath 13.6 Plt Count 220 MPV 9.7 Immature Gran % (Auto) 0.400 Neut % (Auto) 89.5 H Lymph % (Auto) 4.5 L [place] % (Auto) 4.7 Eos % (Auto) 0.6 Baso % (Auto) 0.3 Absolute Neuts (auto) 15.3 H Absolute Lymphs (auto) 0.77 L Nucleated RBC % 0 PT INR APTT Specimen Type Sample Site pH Bicarbonate Actual POC Total CO2 Base Excess O2 Saturation O2 % ABG pCO2 ABG pO2 Daniel Test Respiration Rate O2 Delivery Device Liter Flow EPAP IPAP Blood Gas Notified Whom Blood Gas Notified Time Sodium 143 Potassium 3.4 L Chloride 109 H Carbon Dioxide 28.0 Anion Gap 6 BUN 34 H Creatinine 1.58 H Estim Creat Clear Calc 50.48 Est GFR (MDRD) Af Amer 57 L Est GFR (MDRD) Non-Af 47 L BUN/Creatinine Ratio 21.5 H Glucose 98 Lactic Acid Calcium 8.7 Total Bilirubin Direct Bilirubin AST ALT Alkaline Phosphatase Troponin I 0.832 H* B-Natriuretic Peptide 152.1 H Total Protein Albumin Globulin Lipase Urine Color Urine Clarity Urine pH Ur Specific [place] Urine Protein Urine Glucose (UA) Urine Ketones Urine Occult Blood Urine Nitrite Urine Bilirubin Urine Urobilinogen Ur Leukocyte Esterase Urine RBC Urine WBC Ur Squamous Epith Cells Urine Bacteria Urine Mucus Miscellaneous Test 10/24/19 10/24/19 10/24/19 07:45 07:45 07:45 WBC RBC Hgb Hct MCV MCH MCHC RDW Std Deviation RDW Coeff of Bharath Plt Count MPV Immature Gran % (Auto) Neut % (Auto) Lymph % (Auto) [place] % (Auto) Eos % (Auto) Baso % (Auto) Absolute Neuts (auto) Absolute Lymphs (auto) Nucleated RBC % PT 12.9 INR 1.0 APTT 27.2 Specimen Type Sample Site pH Bicarbonate Actual POC Total CO2 Base Excess O2 Saturation O2 % ABG pCO2 ABG pO2 Daniel Test Respiration Rate O2 Delivery Device Liter Flow EPAP IPAP Blood Gas Notified Whom Blood Gas Notified Time Sodium Potassium Chloride Carbon Dioxide Anion Gap BUN Creatinine Estim Creat Clear Calc Est GFR (MDRD) Af Amer Est GFR (MDRD) Non-Af BUN/Creatinine Ratio Glucose Lactic Acid 2.1 H* Calcium Total Bilirubin 0.80 Direct Bilirubin 0.13 AST 16 ALT 18 Alkaline Phosphatase 52 Troponin I Cancelled B-Natriuretic Peptide Total Protein 6.7 Albumin 3.2 Globulin 3.5 Lipase 100 Urine Color Urine Clarity Urine pH Ur Specific [place] Urine Protein Urine Glucose (UA) Urine Ketones Urine Occult Blood Urine Nitrite Urine Bilirubin Urine Urobilinogen Ur Leukocyte Esterase Urine RBC Urine WBC Ur Squamous Epith Cells Urine Bacteria Urine Mucus Miscellaneous Test 10/24/19 10/24/19 10/24/19 08:51 09:00 11:00 WBC RBC Hgb Hct MCV MCH MCHC RDW Std Deviation RDW Coeff of Bharath Plt Count MPV Immature Gran % (Auto) Neut % (Auto) Lymph % (Auto) [place] % (Auto) Eos % (Auto) Baso % (Auto) Absolute Neuts (auto) Absolute Lymphs (auto) Nucleated RBC % PT INR APTT Specimen Type ART Sample Site R Radial pH 7.33 L Bicarbonate Actual 24.0 POC Total CO2 25 Base Excess -2 O2 Saturation 94 L O2 % ABG pCO2 46.0 H ABG pO2 76 Daniel Test NA Respiration Rate O2 Delivery Device NRB Mask Liter Flow 15.0 EPAP IPAP Blood Gas Notified Whom ED Blood Gas Notified Time 850 Sodium Potassium Chloride Carbon Dioxide Anion Gap BUN Creatinine Estim Creat Clear Calc Est GFR (MDRD) Af Amer Est GFR (MDRD) Non-Af BUN/Creatinine Ratio Glucose Lactic Acid Calcium Total Bilirubin Direct Bilirubin AST ALT Alkaline Phosphatase Troponin I B-Natriuretic Peptide Total Protein Albumin Globulin Lipase Urine Color Yellow Urine Clarity Clear Urine pH 6.0 Ur Specific [place] 1.015 Urine Protein Negative Urine Glucose (UA) Normal Urine Ketones Negative Urine Occult Blood Negative Urine Nitrite Negative Urine Bilirubin Negative Urine Urobilinogen Normal Ur Leukocyte Esterase Negative Urine RBC 0 SEEN Urine WBC 0 SEEN Ur Squamous Epith Cells 0 SEEN Urine Bacteria 0 SEEN Urine Mucus 0 SEEN Miscellaneous Test Cancelled 10/24/19 10/24/19 10/24/19 13:02 13:24 15:53 WBC RBC Hgb Hct MCV MCH MCHC RDW Std Deviation RDW Coeff of Bharath Plt Count MPV Immature Gran % (Auto) Neut % (Auto) Lymph % (Auto) [place] % (Auto) Eos % (Auto) Baso % (Auto) Absolute Neuts (auto) Absolute Lymphs (auto) Nucleated RBC % PT INR APTT Specimen Type ART Sample Site R Radial pH 7.36 Bicarbonate Actual 22.9 POC Total CO2 24 Base Excess -3 L O2 Saturation 98 O2 % 65 ABG pCO2 40.9 ABG pO2 117 H Daniel Test Respiration Rate 12 O2 Delivery Device Bi / C PAP Liter Flow EPAP 8 IPAP 14 Blood Gas Notified Whom ICU MD Blood Gas Notified Time 1551 Sodium Potassium Chloride Carbon Dioxide Anion Gap BUN Creatinine Estim Creat Clear Calc Est GFR (MDRD) Af Amer Est GFR (MDRD) Non-Af BUN/Creatinine Ratio Glucose Lactic Acid 1.4 Calcium Total Bilirubin Direct Bilirubin AST ALT Alkaline Phosphatase Troponin I 1.370 H* B-Natriuretic Peptide Total Protein Albumin Globulin Lipase Urine Color Urine Clarity Urine pH Ur Specific [place] Urine Protein Urine Glucose (UA) Urine Ketones Urine Occult Blood Urine Nitrite Urine Bilirubin Urine Urobilinogen Ur Leukocyte Esterase Urine RBC Urine WBC Ur Squamous Epith Cells Urine Bacteria Urine Mucus Miscellaneous Test 10/24/19 10/24/19 10/25/19 16:15 18:40 04:45 WBC 30.9 H* RBC 3.68 L Hgb 12.1 L Hct 37.9 L MCV 103.0 H MCH 32.9 H MCHC 31.9 L RDW Std Deviation 52.7 H RDW Coeff of Bharath 13.8 Plt Count 197 MPV 9.9 Immature Gran % (Auto) 1.400 H Neut % (Auto) 92.9 H Lymph % (Auto) 1.7 L [place] % (Auto) 3.3 Eos % (Auto) 0.5 Baso % (Auto) 0.2 Absolute Neuts (auto) 28.8 H Absolute Lymphs (auto) 0.51 L Nucleated RBC % 0 PT INR APTT Specimen Type Sample Site pH Bicarbonate Actual POC Total CO2 Base Excess O2 Saturation O2 % ABG pCO2 ABG pO2 Daniel Test Respiration Rate O2 Delivery Device Liter Flow EPAP IPAP Blood Gas Notified Whom Blood Gas Notified Time Sodium Potassium Chloride Carbon Dioxide Anion Gap BUN Creatinine Estim Creat Clear Calc Est GFR (MDRD) Af Amer Est GFR (MDRD) Non-Af BUN/Creatinine Ratio Glucose Lactic Acid Calcium Total Bilirubin Direct Bilirubin AST ALT Alkaline Phosphatase Troponin I 2.060 H* 2.500 H* B-Natriuretic Peptide Total Protein Albumin Globulin Lipase Urine Color Urine Clarity Urine pH Ur Specific [place] Urine Protein Urine Glucose (UA) Urine Ketones Urine Occult Blood Urine Nitrite Urine Bilirubin Urine Urobilinogen Ur Leukocyte Esterase Urine RBC Urine WBC Ur Squamous Epith Cells Urine Bacteria Urine Mucus Miscellaneous Test 10/25/19 04:45 WBC RBC Hgb Hct MCV MCH MCHC RDW Std Deviation RDW Coeff of Bharath Plt Count MPV Immature Gran % (Auto) Neut % (Auto) Lymph % (Auto) [place] % (Auto) Eos % (Auto) Baso % (Auto) Absolute Neuts (auto) Absolute Lymphs (auto) Nucleated RBC % PT INR APTT Specimen Type Sample Site pH Bicarbonate Actual POC Total CO2 Base Excess O2 Saturation O2 % ABG pCO2 ABG pO2 Daniel Test Respiration Rate O2 Delivery Device Liter Flow EPAP IPAP Blood Gas Notified Whom Blood Gas Notified Time Sodium 141 Potassium 4.3 Chloride 110 H Carbon Dioxide 27.0 Anion Gap 4 L BUN 25 H Creatinine 1.29 Estim Creat Clear Calc 61.83 Est GFR (MDRD) Af Amer 72 Est GFR (MDRD) Non-Af 59 L BUN/Creatinine Ratio 19.4 Glucose 109 H Lactic Acid Calcium 8.5 Total Bilirubin Direct Bilirubin AST ALT Alkaline Phosphatase Troponin I B-Natriuretic Peptide Total Protein Albumin Globulin Lipase Urine Color Urine Clarity Urine pH Ur Specific [place] Urine Protein Urine Glucose (UA) Urine Ketones Urine Occult Blood Urine Nitrite Urine Bilirubin Urine Urobilinogen Ur Leukocyte Esterase Urine RBC Urine WBC Ur Squamous Epith Cells Urine Bacteria Urine Mucus Miscellaneous Test Microbiology 10/24/19 11:00 Urine Catheter - [place] Streptococcus pneumoniae Antigen (M - Final 10/24/19 11:00 Urine Catheter - [place] Legionella Antigen - Final 10/24/19 08:49 Mucosa - Nasopharyngeal Respiratory Panel (PCR) - Final 10/24/19 08:05 Mucosa - Nasopharyngeal Rapid RSV (DFA) - Final 10/24/19 08:05 Mucosa - Nasopharyngeal Influenza Types A,B Direct FA (ALEXANDRA) - Final Clinical Impression(s) from Imaging Studies Chest X-Ray 10/24/19 07:49 IMPRESSION: 1. Patchy infiltrate in right lower lobe likely due to pneumonia. 2. Mild infiltrate in right upper lobe. Electronically Signed: Mervin Addison MD at 8:38 EDT Tel , Service support , Chest X-Ray 10/24/19 11:20 IMPRESSION: 1. Left internal jugular central venous catheter in place. 2. Right lung infiltrates increased since the previous exam. Electronically Signed: Mervin Addison MD at 12:18 EDT Tel , Service support , Medical Necessity - Tobacco Use Smoking Status: Never smoker Assessment/Plan All Active Problems (Last Updated 09/25/19 @ 14:00 by Jocy Nguyen) Acute respiratory failure with hypoxia (Acute) Right lower lobe pneumonia (Acute) Septic shock (Acute) Elevated troponin (Acute) H/O coronary artery bypass surgery (Resolved 02/26/13) History of non-ST elevation myocardial infarction (NSTEMI) (Resolved 06/17/19) CVA (cerebral vascular accident) (Resolved 06/30/19) Acute exacerbation of CHF (congestive heart failure) (Resolved) Dyspnea on exertion (Resolved) Vertigo (Resolved) RECOMMENDATIONS: 1. Continue empiric antibiotics for community-acquired pneumonia 2. Wean stress dose steroids 3. Wean oxygen as tolerated. Encourage incentive spirometer/pulmonary toileting 4. Increase activity as tolerated 5. Okay to transfer from the intensive care unit from my perspective IMPRESSIONS: 1. Septic shock/adrenal insufficiency secondary to right lower lobe co mmunity-acquired pneumonia Patient with rapid response to stress dose steroids and pressor therapy. Patient has received appropriate antibiotics and appears to be improving. Patient does have a significant leukocytosis at this time, but this is not a surprise given density of infiltrate. Wean oxygen as tolerated. Aggressive pulmonary toileting and increase activity as tolerated. Given rapidity of improvement, clinical suspicion for a significant component of adrenal crisis/insufficiency leading to hypotension and decompensation yesterday. 2. Acute hypoxic respiratory failure secondary to right lower lobe community-acquired pneumonia Patient with progressive right lower lobe infiltrate. Patient with good response to metabolic stabilization. Currently saturating well on 4 L nasal cannula. Patient has been verified a full code. Patient carries a diagnosis of COPD, but no pulmonary function tests are available for review. Okay to use a erosols. 3. Acute on chronic systolic congestive heart failure secondary to septic shock Patient with last known ejection fraction of 45%. Patient with progressive hypoxia likely a combination of both acute pneumonia and congestive heart failure given volume resuscitation. Patient is off pressors at this time. Clinical suspicion for mild elevation of troponin secondary to hypoxia. Likely okay to reinitiate baseline medications in a stepwise fashion in the next 24 hours 4. Hypertension/hyperlipidemia/depression/GERD/hypothyroidism/vertigo/orth ostatic hypotension Complicates care, management, recovery and prognosis. Respiratory depressants will be discontinued. Meclizine will also be discontinued. Patient should have hypertensive medications held secondary to shock. These may be reinitiated in a stepwise fashion starting tomorrow Inpatient E&M: 27786 [facility] L3
--- NOTE | 2019-10-25 09:53 | PN_ITS ---
Patient Problems: Active and Suspected Problems (Last Updated 09/25/19 @ 14:00 by Jocy Nguyen) Acute respiratory failure with hypoxia (Acute) Right lower lobe pneumonia (Acute) Septic shock (Acute) Elevated troponin (Acute) Subjective: Patient seen and examined. Patient is much more alert today and able to communicate. He is not able to remember anything from when he was admitted yesterday. He does say he feels much better today. His shortness of breath is improved but he still has a mild cough. He denies any chest pain, palpitations, dizziness, nausea vomiting or diarrhea. Review of systems otherwise negative. Labs and vitals reviewed. Patient is down to 2 L of oxygen after being weaned off BiPAP. Temperature this morning is 99.2 Fahrenheit. Chemistry is unremarkable with creatinine going down to 1.29. White cell count is up to 30 but I think this is also due to the hydrocortisone the patient is receiving. He is off pressors. Vitals/I&O's: Vital Signs Temp Pulse Resp BP Pulse Ox 99.2 F H 91 16 154/99 H 96 10/25/19 09:00 10/25/19 09:00 10/25/19 09:00 10/25/19 09:00 10/25/19 09:00 Oxygen Flow Rate (L/min) 2 Oxygen Delivery Method Nasal Cannula Weight: 213 lb 2.992 oz Body Mass Index (BMI) 29.5 Finger Stick Blood Glucose 109 Intake and Output for Last 24 Hours 10/23/19 10/24/19 10/25/19 23:59 23:59 23:59 Intake Total 5039.38 / 5279.38 360 / 360 Output Total 1100 / 1750 1200 / 1200 Balance 3939.38 / 3529.38 -840 / -840 General: No apparent distress, alert, responsive HEENT: Atraumatic, PERRLA, EOMI, Normocephalic Oral: Dry Mucosa Neck: Supple, No JVD, Negative Carotid Bruits Lungs: coarse crackles in right mid and lower lung haines, no wheezing or rhonchi. On 2L of oxygen. Cardiovascular: Regular rate, Regular Rhythm, Normal S1, Normal S2, No murmurs Abdomen: Bowel Sounds Present, Soft, Non Tender, - - slightly erythematous opening on abdomen- PEG tube site. minimal tenderness- says it is chronic, from previous surgery for abdominal hernia Extremities: No clubbing, No cyanosis, No edema, Capillary Refill Less than 3 Seconds Skin: No rashes, No breakdown Musculoskeletal: No Tenderness to Palpation of Joints or Extremities Lymphatic: No Cervical, Supraclavicular, or Inguinal Adenopathy Neurological: Cranial nerves II-XII grossly intact, Power 5/5 in all extremities. normal tone Psych/Mental Status: - -normal affect Microbiology Past 72 Hours 10/24/19 11:00 Urine Catheter - [place] Streptococcus pneumoniae Antigen (M - Final 10/24/19 11:00 Urine Catheter - [place] Legionella Antigen - Final 10/24/19 08:49 Mucosa - Nasopharyngeal Respiratory Panel (PCR) - Final 10/24/19 08:05 Mucosa - Nasopharyngeal Rapid RSV (DFA) - Final 10/24/19 08:05 Mucosa - Nasopharyngeal Influenza Types A,B Direct FA (ALEXANDRA) - Final Laboratory Results 10/24/19 07:45: PT 12.9, INR 1.0, APTT 27.2 10/24/19 09:00: Miscellaneous Test Cancelled 10/24/19 11:00: Urine Color Yellow, Urine Clarity Clear, Urine pH 6.0, Ur S pecific [place] 1.015, Urine Protein Negative, Urine Glucose (UA) Normal, Urine Ketones Negative, Urine Occult Blood Negative, Urine Nitrite Negative, Urine Bilirubin Negative, Urine Urobilinogen Normal, Ur Leukocyte Esterase Negative, Urine RBC 0 SEEN, Urine WBC 0 SEEN, Ur Squamous Epith Cells 0 SEEN, Urine Bacteria 0 SEEN, Urine Mucus 0 SEEN 10/24/19 13:02: Lactic Acid 1.4 10/24/19 13:24: Troponin I 1.370 H* 10/24/19 15:53: Specimen Type ART, Sample Site R Radial, pH 7.36, Bicarbonate Actual 22.9, POC Total CO2 24, Base Excess -3 L, O2 Saturation 98, O2 % 65, ABG pCO2 40.9, ABG pO2 117 H, Respiration Rate 12, O2 Delivery Device Bi / C PAP, EPAP 8, IPAP 14, Blood Gas Notified Whom ICU , Blood Gas Notified Time 1551 10/24/19 16:15: Troponin I 2.060 H* 10/24/19 18:40: Troponin I 2.500 H* 10/25/19 04:45: WBC 30.9 H*, RBC 3.68 L, Hgb 12.1 L, Hct 37.9 L, MCV 103.0 H, MCH 32.9 H, MCHC 31.9 L, RDW Std Deviation 52.7 H, RDW Coeff of Bharath 13.8, Plt Count 197, MPV 9.9, Immature Gran % (Auto) 1.400 H, Neut % (Auto) 92.9 H, Lymph % (Auto) 1.7 L, [place] % (Auto) 3.3, Eos % (Auto) 0.5, Baso % (Auto) 0.2, Absolute Neuts (auto) 28.8 H, Absolute Lymphs (auto) 0.51 L, Nucleated RBC % 0, Diff Path Review December10/25/19 04:45: Sodium 141, Potassium 4.3, Chloride 110 H, Carbon Dioxide 27.0, Anion Gap 4 L, BUN 25 H, Creatinine 1.29, Estim Creat Clear Calc 61.83, Est GFR (MDRD) Af Amer 72, Est GFR (MDRD) Non-Af 59 L, BUN/Creatinine Ratio 19.4, Glucose 109 H, Calcium 8.5 Diagnostic Data Chest X-Ray 10/24/19 11:20 IMPRESSION: 1. Left internal jugular central venous catheter in place. 2. Right lung infiltrates increased since the previous exam. Electronically Signed: Mervin Addison MD at 12:18 EDT Tel , Service support , Current Medications Acetaminophen (Tylenol) 650 mg PO Q6H PRN PRN PRN Reason: Pain Score 1-10/Temp > 100.7 F Last Admin: 10/24/19 15:08 Dose: 650 mg Documented by: Albuterol Sulfate (Ventolin Aerosols) 2.5 mg INHALATION Q4H PRN PRN Reason: SOB &/OR WHEEZING Aspirin (Ecotrin) 81 mg PO DAILY@0800 TEO Atorvastatin Calcium (Lipitor) 20 mg PO QHS [facility] Last Admin: 10/24/19 21:10 Dose: 20 mg Documented by: Clopidogrel Bisulfate (Plavix) 75 mg PO DAILY TEO Enoxaparin Sodium (Lovenox) 40 mg SC DAILY [facility] Glucagon () 1 mg IM .X1 PRN PRN Reason: Hypoglycemia Guaifenesin (Mucinex) 1,200 mg PO BID [facility] Last Admin: 10/24/19 21:11 Dose: 1,200 mg Documented by: Hydrocortisone Sodium Succinate (Solu-Cortef) 100 mg IV Q12 [facility] Sodium Chloride () 250 mls @ 15 mls/hr IV .[id number] PRN PRN Reason: Saline Flush Sodium Chloride () 250 mls @ 15 mls/hr IV .[id number] PRN PRN Reason: Additional IVPB Infusion Norepinephrine Bitartrate 8 mg (/ Sodium Chloride) 250 mls @ 9.375 mls/hr CONT INF .[id number] [facility]; Protocol Last Titration: 10/24/19 23:00 Dose: 0 mcg/min, 0 mls/hr Documented by: Ceftriaxone Sodium 2 gm/ (Sodium Chloride) 50 mls @ 100 mls/hr IV Q24 [facility] Azithromycin 500 mg/ Dextrose 255 mls @ 250 mls/hr IV Q24 [facility] Dextrose (Dextrose 10%-Water) 250 mls @ 999 mls/hr IV .Q16M PRN; Protocol PRN Reason: HYPOGLYCEMIA Famotidine 20 mg/ Sodium (Chloride) 10 mls @ 300 mls/hr IV Q12 [facility] Last Infusion: 10/24/19 21:08 Dose: Infused Documented by: Levothyroxine Sodium (Synthroid) 50 mcg PO SuSa@0600 [facility] Last Admin: 10/25/19 05:57 Dose: 50 mcg Documented by: Levothyroxine Sodium (Synthroid) 100 mcg PO MoTuWeThFr@0600 [facility] Multivitamins/Minerals (Multivitamin With Minerals (Bkc)) 1 tablet PO DAILY@0800 [facility] Ondansetron HCl (Zofran) 4 mg IV Q8H PRN PRN PRN Reason: NAUSEA/VOMITING Potassium Chloride (K-Dur) 20 meq PO BID [facility] Last Admin: 10/24/19 21:11 Dose: 20 meq Documented by: Sertraline HCl (Zoloft) 50 mg PO BID [facility] Last Admin: 10/24/19 21:11 Dose: 50 mg Documented by: Sodium Chloride () 10 - 40 ml IV UD PRN PRN Reason: SALINE FLUSH Last Admin: 10/24/19 14:57 Dose: 40 ml Documented by: STROKE Vital Signs/Narrative: Vital Signs Temp Pulse Resp BP Pulse Ox 10/25/19 09:00 99.2 F H 91 16 154/99 H 96 10/25/19 08:00 99.0 F 91 22 H 148/98 H 94 10/25/19 07:00 98.8 F 88 21 H 133/95 H 96 10/25/19 05:59 98.7 F 90 20 H 124/90 H 96 Medical Necessity - Tobacco Use Smoking Status: Never smoker Assessment/Plan All Active Problems (Last Updated 09/25/19 @ 14:00 by Jocy Nguyen) Acute respiratory failure with hypoxia (Acute) Right lower lobe pneumonia (Acute) Septic shock (Acute) Elevated troponin (Acute) H/O coronary artery bypass surgery (Resolved 02/26/13) History of non-ST elevation myocardial infarction (NSTEMI) (Resolved 06/17/19) CVA (cerebral vascular accident) (Resolved 06/30/19) Acute exacerbation of CHF (congestive heart failure) (Resolved) Dyspnea on exertion (Resolved) Vertigo (Resolved) 68 y/o admitted with a complaint of shortness of breath 1. Septic shock due to community acquired pneumonia * patietn now off levophed and BIPAP. He is much more alert today * urine for strep and Legionella, and respiratory panel were negative * wbc today is up to 30, likely due to effect of IV hydrocortisone * on IV ceftriaxone and azithromycin * I do think patient meets criteria for COVID 19 testing; he hasnt had any recent exposure though. I discussed this with director environmental; director environmental doesnt want testing now as patient is improving with treatment for community acquired pneumonia. * 2D echo pending. * critical care on board * blood cultures pending. * * 2. Acute hypoxic respiratory failure due to community acquired pneumonia * as under 1. Now off BIPAP and on 2L of oxygen. * continue breathing treatments with duonebs * critical care on board; titrate oxygen to maintain sats>90% 3. Nonstemi * Initial troponin was 0.832 but trended up to a peak of 2.5 * Cardiology consulted echo was ordered. Platelets more likely type II non- STEMI due to demand ischemia from septic shock. * Advocated conservative management for now in light of patient's septic shock and community-acquired pneumonia as well as acute hypoxic respiratory failure. Once patient improves, will benefit from cardiac work-up. * 2D echo pending. * 4. Acute metabolic encephalopathy due to community acquired pneumonia and septic shock * management as under 1 and 2 5. History of adrenal insufficiency and orthostatic hypotension * patient on IV hydrcortisone 100mg q8 * * 6. Hypertension; BP meds on hold o/a of septic shock 7. hyperlipidemia: on statin 8. Hypothyroidism: on synthroid 9. HFrEF: not in exacerbation now. lasix on hold. 10. CAD s/p CABG: on aspirin and statin. Carvedilol, lisinopril on hold o/a of septic shock. DVT prophylaxis; lovenox GI prophylaxis: IV famotidine Code status: full code * Inpatient E&M: [id number] [facility] Hosp L3
[2019-10-25] MEDS: Famotidine 200 MG/20 ML MDV 20 MG in 0.9% Normal Saline (Pres. free 8 ML 300 MG IV ×2 (10:17→21:06)
[2019-10-25] MEDS: 0.9% Saline Lock 10 ML Syringe IV (10:17)
[2019-10-25] MEDS: guaiFENesin 1,200 MG Tablet 1200 MG PO ×2 (10:28→21:05)
[2019-10-25] MEDS: Sertraline 50 MG Tablet PO ×2 (10:28→21:05)
[2019-10-25] MEDS: Enoxaparin 40 MG/0.4 ML Syringe SC (10:28)
[2019-10-25] MEDS: Multivitamins,Ther W-Minerals Tablet 1 TABLET PO (10:28)
[2019-10-25] MEDS: Aspirin E.C. 81 MG Tablet PO (10:29)
[2019-10-25] MEDS: Clopidogrel Bisulfate 75 MG Tablet PO (10:29)
--- NOTE | 2019-10-25 14:36 | PCM.PN.CARD ---
Subjectve: Patient is sitting up. Blood pressure has gone back to normal without IV pressor. He denies any chest pain or shortness of breath. Patient has had leukocytosis with no fever Objective: Vital Signs Temp Pulse Resp BP Pulse Ox 97.9 F 89 21 H 127/86 H 94 10/25/19 12:00 10/25/19 13:00 10/25/19 13:00 10/25/19 13:00 10/25/19 13:00 Oxygen Flow Rate (L/min) 2 Oxygen Delivery Method Room Air Weight: 213 lb 2.992 oz Body Mass Index (BMI) 29.5 Finger Stick Blood Glucose 109 Intake and Output for Last 24 Hours 10/23/19 10/24/19 10/25/19 23:59 23:59 23:59 Intake Total 5039.38 / 5279.38 710.62 / 710.62 Output Total 1100 / 1750 1675 / 1675 Balance 3939.38 / 3529.38 -964.38 / -964.38 General: Awake, Alert, Oriented x 3 HEENT: PERRL, EOMI, Sclera Non Icteric Neck: Supple, Good ROM, No Lymph Node Enlargement Lungs: Rales - Right Base Cardiovascular: Regular Rhythm - Heart sounds distant, Normal S1, Normal S2, No Murmurs, No Rubs, No Gallops Abdomen: Bowel Sounds Present, Soft, Non Tender, No HSM, No Organomegaly Neurological: No Focal Motor or Sensory Deficit Psych/Mental Status: Appropriate, Normal Affect 10/24/19 15:53: pH 7.36, Bicarbonate Actual 22.9, POC Total CO2 24, Base Excess -3 L, O2 Saturation 98, ABG pCO2 40.9, ABG pO2 117 H 10/24/19 16:15: Troponin I 2.060 H* 10/24/19 18:40: Troponin I 2.500 H* 10/25/19 04:45: WBC 30.9 H*, RBC 3.68 L, Hgb 12.1 L, Hct 37.9 L, MCV 103.0 H, MCH 32.9 H, MCHC 31.9 L, Plt Count 197, MPV 9.9, Immature Gran % (Auto) 1.400 H, Neut % (Auto) 92.9 H, Lymph % (Auto) 1.7 L, [place] % (Auto) 3.3, Eos % (Auto) 0.5, Baso % (Auto) 0.2, Absolute Neuts (auto) 28.8 H, Nucleated RBC % 0 10/25/19 04:45: Sodium 141, Potassium 4.3, Chloride 110 H, Carbon Dioxide 27.0, Anion Gap 4 L, BUN 25 H, Creatinine 1.29, Est GFR (MDRD) Af Amer 72, Est GFR (MDRD) Non-Af 59 L, BUN/Creatinine Ratio 19.4, Glucose 109 H, Calcium 8.5 Rhythm: EKG: ECHO: Stress Test: Cardiac Cath: PCI: CT Surgery: Holter monitor: EPS: PPM: CXR: Chest CT Scan: Medical Necessity - Tobacco Use Smoking Status: Never smoker Assessment/Plan #1 type II myocardial infarct secondary to septic shock. Still no chest pain or arrhythmia. Blood pressure has been stabilized with no IV pressor the elevated troponin is secondary to type II myocardial infarct and aggravated by stage IIIa renal insufficiency. I would recommend low-dose carvedilol #2 history of CABG 2012. Repeat cardiac catheterization showed patent LEVINE graft of the left anterior descending, occluded graft to the distal right coronary artery, sequential graft only showed patent LEVINE to the diagonal branch. Ejection fraction from echocardiogram done 4 months ago was 45%. Patient has been treated successfully with conservative medical management in the past several months. #3 stage IIIA renal insufficiency #4 bilateral carotid stenting #5 hypertension and hyperlipidemia
[2019-10-25] MEDS: Acetaminophen 325 MG Tablet 650 MG PO (16:54)
[2019-10-25] MEDS: Atorvastatin Calcium 20 MG Tablet PO (21:05)
[2019-10-25] MEDS: Carvedilol 3.125 MG TABLET PO (23:48)
[2019-10-26] VITALS (22 sets, daily range): BP systolic 127–179; BP diastolic 72–124; PULSE 74–97; RESP 11–27; TEMP 35.9–36.6; O2SAT 92–97
--- NOTE | 2019-10-26 00:35 | NURSING ---
pt awake, rating his sternal pain a 9/10 at this time. states it is because his bp is elevated. dr sanchez called, and his coreg that he refused earlier because his bp was low, was now given unscheduled. 179/124
[2019-10-26] MEDS: Acetaminophen 325 MG Tablet 650 MG PO (01:09)
[2019-10-26] MEDS: HYDROmorphone 0.5 MG/0.5 ML SYRINGE IV (01:10)
[2019-10-26] MEDS: Aspirin 325 MG Tablet PO (01:12)
[2019-10-26 04:21] LABS: Absolute Lymphocyte Count 0.46 X10^3/uL (0.83-4.51); Absolute Neutrophil Count 20.8 X10^3/uL (2.0-7.7); Basophil# 0.02 X10^3/uL; Basophil% 0.1 % (0-1); Hemoglobin 11.4 g/dL (13.0-16.5); Lymphocyte # 0.46 X10^3/ul (4.0); Lymphocyte % 2.1 % (19-41); Mean Corp Hgb Conc 31.7 g/dL (32-36); Mean Corpuscular Hgb 32.9 pg (27.0-32.0); Mean Corpuscular Volume 103.7 fL (80-94); Mean Platelet Vol. 9.8 fl (6.2-12.0); Monocyte# 0.52 X10^3/uL; Monocyte% 2.4 % (0-10); NRBC Flagged by Analyzer 0 % (0-5); Neutrophil # 20.75 X10^3/uL (2.7-7.7); Neutrophil % 93.7 % (47-70); POSITIVE DIFFERENTIAL YES; POSITIVE MORPHOLOGY YES; Platelet Count 183 K/mm3 (150-450); RBC Distribution Width CV 13.9 % (11.6-14.6); RBC Distribution Width SD 52.9 fl (35.1-43.9); Red Blood Count 3.47 M/mm3 (4.6-6.2); White Blood Count 22.1 K/mm3 (4.4-11.0)
[2019-10-26 04:28] LABS: Differential Indicated SCAN CRITERIA MET
[2019-10-26 04:37] LABS: Anion Gap 4 (5-15); BUN 24 mg/dL (7-18); BUN/Creat Ratio 21.4 RATIO (10-20); Calcium,Total 8.9 mg/dL (8.5-10.1); Chloride 109 mmol/L (98-107); Creatinine, Serum 1.12 mg/dL (0.70-1.30); EST Glomerular Filtration Rate 70 mL/min (>60); Est Glom Filt Rate - Afr Amer 84 mL/min (>60); Estimated Creatinine Clearance 71.21 ml/min; Glucose 136 mg/dL (74-106); Potassium 4.3 mmol/L (3.5-5.1); Sodium Level 140 mmol/L (136-145)
[2019-10-26 04:48] LABS: Hypochromasia RARE; Macrocytosis 2+; Platelet Estimate ADEQUATE (ADEQ)
--- NOTE | 2019-10-26 06:19 | PCM.PN.INT ---
Subjective: The patient was seen and examined at the bedside this morning. Events from the last 24 hours have been reviewed. The patient is currently afebrile, hemodynamically stable and maintaining appropriate oxygen saturations on 2 L/min via nasal cannula. He does still continue to have a nonproductive cough, nevertheless. Objective: The patient's most recent lab work, culture data and imaging studies have all been personally reviewed. Infectious work-up has been negative to date. General: Alert, Cooperative, No apparent distress HEENT: Atraumatic, Normocephalic Oral: No Gingival or Mucosal Lesions/ Ulcerations Neck: Supple, No Nodes, Trachea Midline Lungs: No rhonchi, No wheeze, No rales, Diminished Cardiovascular: Regular rate, Regular Rhythm, Normal S1, Normal S2 Abdomen: Bowel Sounds Present, Soft, Non Tender Extremities: No clubbing, No cyanosis Skin: No breakdown Musculoskeletal: No Tenderness to Palpation of Joints or Extremities Lymphatic: No Cervical, Supraclavicular, or Inguinal Adenopathy Neurological: Cranial nerves II-XII grossly intact, Neuro grossly intact Psych/Mental Status: Normal Affect, Appropriate Vital Signs Temp Pulse Resp BP Pulse Ox 97.7 F L 78 18 128/87 H 96 10/26/19 05:00 10/26/19 05:00 10/26/19 05:00 10/26/19 05:00 10/26/19 05:00 Oxygen Flow Rate (L/min) 2 Oxygen Delivery Method Nasal Cannula Weight: 212 lb 11.937 oz Body Mass Index (BMI) 29.5 Finger Stick Blood Glucose 109 Intake and Output for Last 24 Hours 10/24/19 10/25/19 10/26/19 23:59 23:59 23:59 Intake Total 5039.38 / 5279.38 1190.62 / 1190.62 Output Total 1100 / 1750 2675 / 2675 Balance 3939.38 / 3529.38 -1484.38 / -1484.38 Labs (Last 48 Hours) 10/24/19 10/24/19 10/24/19 07:45 07:45 07:45 WBC 17.1 H RBC 4.04 L Hgb 13.5 Hct 41.6 MCV 103.0 H MCH 33.4 H MCHC 32.5 RDW Std Deviation 51.9 H RDW Coeff of Bharath 13.6 Plt Count 220 MPV 9.7 Immature Gran % (Auto) 0.400 Neut % (Auto) 89.5 H Lymph % (Auto) 4.5 L [place] % (Auto) 4.7 Eos % (Auto) 0.6 Baso % (Auto) 0.3 Absolute Neuts (auto) 15.3 H Absolute Lymphs (auto) 0.77 L Nucleated RBC % 0 Differential Comment Diff Path Review Platelet Estimate Hypochromasia Macrocytosis PT INR APTT Specimen Type Sample Site pH Bicarbonate Actual POC Total CO2 Base Excess O2 Saturation O2 % ABG pCO2 ABG pO2 Daniel Test Respiration Rate O2 Delivery Device Liter Flow EPAP IPAP Blood Gas Notified Whom Blood Gas Notified Time Sodium 143 Potassium 3.4 L Chloride 109 H Carbon Dioxide 28.0 Anion Gap 6 BUN 34 H Creatinine 1.58 H Estim Creat Clear Calc 50.48 Est GFR (MDRD) Af Amer 57 L Est GFR (MDRD) Non-Af 47 L BUN/Creatinine Ratio 21.5 H Glucose 98 Lactic Acid Calcium 8.7 Total Bilirubin Direct Bilirubin AST ALT Alkaline Phosphatase Troponin I 0.832 H* B-Natriuretic Peptide 152.1 H Total Protein Albumin Globulin Lipase Urine Color Urine Clarity Urine pH Ur Specific [place] Urine Protein Urine Glucose (UA) Urine Ketones Urine Occult Blood Urine Nitrite Urine Bilirubin Urine Urobilinogen Ur Leukocyte Esterase Urine RBC Urine WBC Ur Squamous Epith Cells Urine Bacteria Urine Mucus Miscellaneous Test 10/24/19 10/24/19 10/24/19 07:45 07:45 07:45 WBC RBC Hgb Hct MCV MCH MCHC RDW Std Deviation RDW Coeff of Bharath Plt Count MPV Immature Gran % (Auto) Neut % (Auto) Lymph % (Auto) [place] % (Auto) Eos % (Auto) Baso % (Auto) Absolute Neuts (auto) Absolute Lymphs (auto) Nucleated RBC % Differential Comment Diff Path Review Platelet Estimate Hypochromasia Macrocytosis PT 12.9 INR 1.0 APTT 27.2 Specimen Type Sample Site pH Bicarbonate Actual POC Total CO2 Base Excess O2 Saturation O2 % ABG pCO2 ABG pO2 Daniel Test Respiration Rate O2 Delivery Device Liter Flow EPAP IPAP Blood Gas Notified Whom Blood Gas Notified Time Sodium Potassium Chloride Carbon Dioxide Anion Gap BUN Creatinine Estim Creat Clear Calc Est GFR (MDRD) Af Amer Est GFR (MDRD) Non-Af BUN/Creatinine Ratio Glucose Lactic Acid 2.1 H* Calcium Total Bilirubin 0.80 Direct Bilirubin 0.13 AST 16 ALT 18 Alkaline Phosphatase 52 Troponin I Cancelled B-Natriuretic Peptide Total Protein 6.7 Albumin 3.2 Globulin 3.5 Lipase 100 Urine Color Urine Clarity Urine pH Ur Specific [place] Urine Protein Urine Glucose (UA) Urine Ketones Urine Occult Blood Urine Nitrite Urine Bilirubin Urine Urobilinogen Ur Leukocyte Esterase Urine RBC Urine WBC Ur Squamous Epith Cells Urine Bacteria Urine Mucus Miscellaneous Test 10/24/19 10/24/19 10/24/19 08:51 09:00 11:00 WBC RBC Hgb Hct MCV MCH MCHC RDW Std Deviation RDW Coeff of Bharath Plt Count MPV Immature Gran % (Auto) Neut % (Auto) Lymph % (Auto) [place] % (Auto) Eos % (Auto) Baso % (Auto) Absolute Neuts (auto) Absolute Lymphs (auto) Nucleated RBC % Differential Comment Diff Path Review Platelet Estimate Hypochromasia Macrocytosis PT INR APTT Specimen Type ART Sample Site R Radial pH 7.33 L Bicarbonate Actual 24.0 POC Total CO2 25 Base Excess -2 O2 Saturation 94 L O2 % ABG pCO2 46.0 H ABG pO2 76 Daniel Test NA Respiration Rate O2 Delivery Device NRB Mask Liter Flow 15.0 EPAP IPAP Blood Gas Notified Whom ED MD Blood Gas Notified Time 850 Sodium Potassium Chloride Carbon Dioxide Anion Gap BUN Creatinine Estim Creat Clear Calc Est GFR (MDRD) Af Amer Est GFR (MDRD) Non-Af BUN/Creatinine Ratio Glucose Lactic Acid Calcium Total Bilirubin Direct Bilirubin AST ALT Alkaline Phosphatase Troponin I B-Natriuretic Peptide Total Protein Albumin Globulin Lipase Urine Color Yellow Urine Clarity Clear Urine pH 6.0 Ur Specific [place] 1.015 Urine Protein Negative Urine Glucose (UA) Normal Urine Ketones Negative Urine Occult Blood Negative Urine Nitrite Negative Urine Bilirubin Negative Urine Urobilinogen Normal Ur Leukocyte Esterase Negative Urine RBC 0 SEEN Urine WBC 0 SEEN Ur Squamous Epith Cells 0 SEEN Urine Bacteria 0 SEEN Urine Mucus 0 SEEN Miscellaneous Test Cancelled 10/24/19 10/24/19 10/24/19 13:02 13:24 15:53 WBC RBC Hgb Hct MCV MCH MCHC RDW Std Deviation RDW Coeff of Bharath Plt Count MPV Immature Gran % (Auto) Neut % (Auto) Lymph % (Auto) [place] % (Auto) Eos % (Auto) Baso % (Auto) Absolute Neuts (auto) Absolute Lymphs (auto) Nucleated RBC % Differential Comment Diff Path Review Platelet Estimate Hypochromasia Macrocytosis PT INR APTT Specimen Type ART Sample Site R Radial pH 7.36 Bicarbonate Actual 22.9 POC Total CO2 24 Base Excess -3 L O2 Saturation 98 O2 % 65 ABG pCO2 40.9 ABG pO2 117 H Daniel Test Respiration Rate 12 O2 Delivery Device Bi / C PAP Liter Flow EPAP 8 IPAP 14 Blood Gas Notified Whom ICU MD Blood Gas Notified Time 1551 Sodium Potassium Chloride Carbon Dioxide Anion Gap BUN Creatinine Estim Creat Clear Calc Est GFR (MDRD) Af Amer Est GFR (MDRD) Non-Af BUN/Creatinine Ratio Glucose Lactic Acid 1.4 Calcium Total Bilirubin Direct Bilirubin AST ALT Alkaline Phosphatase Troponin I 1.370 H* B-Natriuretic Peptide Total Protein Albumin Globulin Lipase Urine Color Urine Clarity Urine pH Ur Specific [place] Urine Protein Urine Glucose (UA) Urine Ketones Urine Occult Blood Urine Nitrite Urine Bilirubin Urine Urobilinogen Ur Leukocyte Esterase Urine RBC Urine WBC Ur Squamous Epith Cells Urine Bacteria Urine Mucus Miscellaneous Test 10/24/19 10/24/19 10/25/19 16:15 18:40 04:45 WBC 30.9 H* RBC 3.68 L Hgb 12.1 L Hct 37.9 L MCV 103.0 H MCH 32.9 H MCHC 31.9 L RDW Std Deviation 52.7 H RDW Coeff of Bharath 13.8 Plt Count 197 MPV 9.9 Immature Gran % (Auto) 1.400 H Neut % (Auto) 92.9 H Lymph % (Auto) 1.7 L [place] % (Auto) 3.3 Eos % (Auto) 0.5 Baso % (Auto) 0.2 Absolute Neuts (auto) 28.8 H Absolute Lymphs (auto) 0.51 L Nucleated RBC % 0 Differential Comment Diff Path Review May foll Platelet Estimate Hypochromasia Macrocytosis PT INR APTT Specimen Type Sample Site pH Bicarbonate Actual POC Total CO2 Base Excess O2 Saturation O2 % ABG pCO2 ABG pO2 Daniel Test Respiration Rate O2 Delivery Device Liter Flow EPAP IPAP Blood Gas Notified Whom Blood Gas Notified Time Sodium Potassium Chloride Carbon Dioxide Anion Gap BUN Creatinine Estim Creat Clear Calc Est GFR (MDRD) Af Amer Est GFR (MDRD) Non-Af BUN/Creatinine Ratio Glucose Lactic Acid Calcium Total Bilirubin Direct Bilirubin AST ALT Alkaline Phosphatase Troponin I 2.060 H* 2.500 H* B-Natriuretic Peptide Total Protein Albumin Globulin Lipase Urine Color Urine Clarity Urine pH Ur Specific [place] Urine Protein Urine Glucose (UA) Urine Ketones Urine Occult Blood Urine Nitrite Urine Bilirubin Urine Urobilinogen Ur Leukocyte Esterase Urine RBC Urine WBC Ur Squamous Epith Cells Urine Bacteria Urine Mucus Miscellaneous Test 10/25/19 10/26/19 10/26/19 04:45 01:20 04:12 WBC 22.1 H RBC 3.47 L Hgb 11.4 L Hct 36.0 L MCV 103.7 H MCH 32.9 H MCHC 31.7 L RDW Std Deviation 52.9 H RDW Coeff of Bharath 13.9 Plt Count 183 MPV 9.8 Immature Gran % (Auto) 1.700 H Neut % (Auto) 93.7 H Lymph % (Auto) 2.1 L [place] % (Auto) 2.4 Eos % (Auto) 0.0 Baso % (Auto) 0.1 Absolute Neuts (auto) 20.8 H Absolute Lymphs (auto) 0.46 L Nucleated RBC % 0 Differential Comment Diff Path Review Platelet Estimate ADEQUATE Hypochromasia RARE Macrocytosis 2+ PT INR APTT Specimen Type Sample Site pH Bicarbonate Actual POC Total CO2 Base Excess O2 Saturation O2 % ABG pCO2 ABG pO2 Daniel Test Respiration Rate O2 Delivery Device Liter Flow EPAP IPAP Blood Gas Notified Whom Blood Gas Notified Time Sodium 141 Potassium 4.3 Chloride 110 H Carbon Dioxide 27.0 Anion Gap 4 L BUN 25 H Creatinine 1.29 Estim Creat Clear Calc 61.83 Est GFR (MDRD) Af Amer 72 Est GFR (MDRD) Non-Af 59 L BUN/Creatinine Ratio 19.4 Glucose 109 H Lactic Acid Calcium 8.5 Total Bilirubin Direct Bilirubin AST ALT Alkaline Phosphatase Troponin I 0.541 H B-Natriuretic Peptide Total Protein Albumin Globulin Lipase Urine Color Urine Clarity Urine pH Ur Specific [place] Urine Protein Urine Glucose (UA) Urine Ketones Urine Occult Blood Urine Nitrite Urine Bilirubin Urine Urobilinogen Ur Leukocyte Esterase Urine RBC Urine WBC Ur Squamous Epith Cells Urine Bacteria Urine Mucus Miscellaneous Test 10/26/19 10/26/19 04:12 04:12 WBC RBC Hgb Hct MCV MCH MCHC RDW Std Deviation RDW Coeff of Bharath Plt Count MPV Immature Gran % (Auto) Neut % (Auto) Lymph % (Auto) [place] % (Auto) Eos % (Auto) Baso % (Auto) Absolute Neuts (auto) Absolute Lymphs (auto) Nucleated RBC % Differential Comment Diff Path Review Platelet Estimate Hypochromasia Macrocytosis PT INR APTT Specimen Type Sample Site pH Bicarbonate Actual POC Total CO2 Base Excess O2 Saturation O2 % ABG pCO2 ABG pO2 Daniel Test Respiration Rate O2 Delivery Device Liter Flow EPAP IPAP Blood Gas Notified Whom Blood Gas Notified Time Sodium 140 Potassium 4.3 Chloride 109 H Carbon Dioxide 27.0 Anion Gap 4 L BUN 24 H Creatinine 1.12 Estim Creat Clear Calc 71.21 Est GFR (MDRD) Af Amer 84 Est GFR (MDRD) Non-Af 70 BUN/Creatinine Ratio 21.4 H Glucose 136 H Lactic Acid Calcium 8.9 Total Bilirubin Direct Bilirubin AST ALT Alkaline Phosphatase Troponin I 0.541 H B-Natriuretic Peptide Total Protein Albumin Globulin Lipase Urine Color Urine Clarity Urine pH Ur Specific [place] Urine Protein Urine Glucose (UA) Urine Ketones Urine Occult Blood Urine Nitrite Urine Bilirubin Urine Urobilinogen Ur Leukocyte Esterase Urine RBC Urine WBC Ur Squamous Epith Cells Urine Bacteria Urine Mucus Miscellaneous Test Microbiology 10/24/19 11:00 Urine Catheter - [place] Streptococcus pneumoniae Antigen (M - Final 10/24/19 11:00 Urine Catheter - [place] Legionella Antigen - Final 10/24/19 08:49 Mucosa - Nasopharyngeal Respiratory Panel (PCR) - Final 10/24/19 08:05 Mucosa - Nasopharyngeal Rapid RSV (DFA) - Final 10/24/19 08:05 Mucosa - Nasopharyngeal Influenza Types A,B Direct FA (ALEXANDRA) - Final Clinical Impression(s) from Imaging Studies Chest X-Ray 10/24/19 07:49 IMPRESSION: 1. Patchy infiltrate in right lower lobe likely due to pneumonia. 2. Mild infiltrate in right upper lobe. Electronically Signed: Mervin Addison MD at 8:38 EDT Tel , Service support , Chest X-Ray 10/24/19 11:20 IMPRESSION: 1. Left internal jugular central venous catheter in place. 2. Right lung infiltrates increased since the previous exam. Electronically Signed: Mervin Addison MD at 12:18 EDT Tel , Service support , Medical Necessity - Tobacco Use Smoking Status: Never smoker Assessment/Plan All Active Problems (Last Updated 09/25/19 @ 14:00 by Jocy Nguyen) Acute respiratory failure with hypoxia (Acute) Right lower lobe pneumonia (Acute) Septic shock (Acute) Elevated troponin (Acute) H/O coronary artery bypass surgery (Resolved 02/26/13) History of non-ST elevation myocardial infarction (NSTEMI) (Resolved 06/17/19) CVA (cerebral vascular accident) (Resolved 06/30/19) Acute exacerbation of CHF (congestive heart failure) (Resolved) Dyspnea on exertion (Resolved) Vertigo (Resolved) RECOMMENDATIONS: 1. Continue empiric antimicrobials with plans to complete a 7-day treatment course. 2. Transition hydrocortisone to 50 mg twice daily. 3. Continue to wean supplemental oxygen to maintain saturations at or above 90%. 4. Continue bronchodilators. 5. Encourage incentive spirometer use and mobilize patient as tolerated. 6. The patient is medically stable for transfer out of the intensive care unit. IMPRESSIONS: 1. Septic shock with relative adrenal insufficiency secondary to right lower lobe community-acquired pneumonia Improving clinically. The patient is hemodynamically stable off of vasopressor support. At this time, stress dose steroids will be weaned to 50 mg twice daily. Continue empiric antimicrobials as ordered. Wean supplemental oxygen to maintain saturations at or above 90%. 2. Acute hypoxemic respiratory failure secondary to community-acquired pneumonia Continue current supportive measures and wean supplemental oxygen as tolerated. Encourage incentive spirometer use and mobilize patient as tolerated. Continue bronchodilators as ordered. I would plan to complete a 7-day treatment course of antibiotics. 3. Chronic systolic heart failure/troponin elevation Likely secondary to demand ischemia in the setting of #1. Baseline cardiac medications can be restarted from my perspective. 4. Hypertension/hyperlipidemia/depression/GERD/hypothyroidism Complicates care, management, recovery and prognosis. Continue home medications as needed. This note was generated with [employer] software. It may contain incorrect words, spelling, and punctuation that were not noted in checking the note before signing. Inpatient E&M: 01973 Subs Hosp L2
[2019-10-26] MEDS: Levothyroxine 100 MCG Tablet PO (06:26)
--- NOTE | 2019-10-26 09:04 | PN_ITS ---
Patient Problems: Active and Suspected Problems (Last Updated 09/25/19 @ 14:00 by Jocy Nguyen) Acute respiratory failure with hypoxia (Acute) Right lower lobe pneumonia (Acute) Septic shock (Acute) Elevated troponin (Acute) Subjective: Patient seen and examined. He said he had a good night, and denies fever chills, nausea or vomiting. He admits to a cough, but it is improving. Review of systems otherwise negative. LAbs and vitals reviewed. WBC down to 22 today. Troponin today is 0.546. Vitals/I&O's: Vital Signs Temp Pulse Resp BP Pulse Ox 97.5 F L 79 20 H 127/79 H 94 10/26/19 06:00 10/26/19 07:39 10/26/19 07:00 10/26/19 07:00 10/26/19 07:00 Oxygen Flow Rate (L/min) 2 Oxygen Delivery Method Nasal Cannula Weight: 212 lb 11.937 oz Body Mass Index (BMI) 29.5 Finger Stick Blood Glucose 109 Intake and Output for Last 24 Hours 10/24/19 10/25/19 10/26/19 23:59 23:59 23:59 Intake Total 5039.38 / 5279.38 1190.62 / 1190.62 50 / 50 Output Total 1100 / 1750 2675 / 2675 Balance 3939.38 / 3529.38 -1484.38 / -1484.38 50 / 50 General: No apparent distress, alert, responsive HEENT: Atraumatic, PERRLA, EOMI, Normocephalic Oral: Dry Mucosa Neck: Supple, No JVD, Negative Carotid Bruits Lungs: diminished breath sounds bibasally, no wheezes or crackles. On 2L of oxygen. Cardiovascular: Regular rate, Regular Rhythm, Normal S1, Normal S2, No murmurs Abdomen: Bowel Sounds Present, Soft, Non Tender, - - slightly erythematous opening on abdomen- PEG tube site. minimal tenderness- says it is chronic, from previous surgery for abdominal hernia Extremities: No clubbing, No cyanosis, No edema, Capillary Refill Less than 3 Seconds Skin: No rashes, No breakdown Musculoskeletal: No Tenderness to Palpation of Joints or Extremities Lymphatic: No Cervical, Supraclavicular, or Inguinal Adenopathy Neurological: Cranial nerves II-XII grossly intact, Power 5/5 in all extremities. normal tone Psych/Mental Status: - -normal affect Microbiology Past 72 Hours 10/24/19 11:00 Urine Catheter - [place] Streptococcus pneumoniae Antigen (M - Final 10/24/19 11:00 Urine Catheter - [place] Legionella Antigen - Final 10/24/19 08:49 Mucosa - Nasopharyngeal Respiratory Panel (PCR) - Final 10/24/19 08:05 Mucosa - Nasopharyngeal Rapid RSV (DFA) - Final 10/24/19 08:05 Mucosa - Nasopharyngeal Influenza Types A,B Direct FA (ALEXANDRA) - Final Laboratory Results 10/26/19 01:20: Troponin I 0.541 H 10/26/19 04:12: WBC 22.1 H, RBC 3.47 L, Hgb 11.4 L, Hct 36.0 L, MCV 103.7 H, MCH 32.9 H, MCHC 31.7 L, RDW Std Deviation 52.9 H, RDW Coeff of Bharath 13.9, Plt Count 183, MPV 9.8, Immature Gran % (Auto) 1.700 H, Neut % (Auto) 93.7 H, Lymph % (Auto) 2.1 L, Larue % (Auto) 2.4, Eos % (Auto) 0.0, Baso % (Auto) 0.1, Absolute Neuts (auto) 20.8 H, Absolute Lymphs (auto) 0.46 L, Nucleated RBC % 0, Differential Comment , Platelet Estimate ADEQUATE, Hypochromasia RARE, Macrocytosis 2+ 10/26/19 04:12: Sodium 140, Potassium 4.3, Chloride 109 H, Carbon Dioxide 27.0, Anion Gap 4 L, BUN 24 H, Creatinine 1.12, Estim Creat Clear Calc 71.21, Est GFR (MDRD) Af Amer 84, Est GFR (MDRD) Non-Af 70, BUN/Creatinine Ratio 21.4 H, Glucose 136 H, Calcium 8.9 10/26/19 04:12: Troponin I 0.541 H 10/26/19 06:55: Troponin I 0.546 H Diagnostic Data Chest X-Ray 10/24/19 11:20 IMPRESSION: 1. Left internal jugular central venous catheter in place. 2. Right lung infiltrates increased since the previous exam. Electronically Signed: Mervin Addison MD at 12:18 EDT Tel , Service support , Current Medications Acetaminophen (Tylenol) 650 mg PO Q6H PRN PRN PRN Reason: Pain Score 1-10/Temp > 100.7 F Last Admin: 10/26/19 01:09 Dose: 650 mg Documented by: Albuterol Sulfate (Ventolin Aerosols) 2.5 mg INHALATION Q4H PRN PRN Reason: SOB &/OR WHEEZING Aspirin (Ecotrin) 81 mg PO DAILY@0800 [facility] Last Admin: 10/25/19 10:29 Dose: 81 mg Documented by: Atorvastatin Calcium (Lipitor) 20 mg PO QHS [facility] Last Admin: 10/25/19 21:05 Dose: 20 mg Documented by: Carvedilol (Coreg) 3.125 mg PO BID [facility] Last Admin: 10/25/19 23:48 Dose: 3.125 mg Documented by: Clopidogrel Bisulfate (Plavix) 75 mg PO DAILY [facility] Last Admin: 10/25/19 10:29 Dose: 75 mg Documented by: Enoxaparin Sodium (Lovenox) 40 mg SC DAILY [facility] Last Admin: 10/25/19 10:28 Dose: 40 mg Documented by: Glucagon () 1 mg IM .X1 PRN PRN Reason: Hypoglycemia Guaifenesin (Mucinex) 1,200 mg PO BID [facility] Last Admin: 10/25/19 21:05 Dose: 1,200 mg Documented by: Hydrocortisone Sodium Succinate (Solu-Cortef) 100 mg IV Q12 [facility] Last Admin: 10/25/19 21:06 Dose: 100 mg Documented by: Sodium Chloride () 250 mls @ 15 mls/hr IV .[id number] PRN PRN Reason: Saline Flush Sodium Chloride () 250 mls @ 15 mls/hr IV .[id number] PRN PRN Reason: Additional IVPB Infusion Ceftriaxone Sodium 2 gm/ (Sodium Chloride) 50 mls @ 100 mls/hr IV Q24 [facility] Last Infusion: 10/25/19 11:17 Dose: Infused Documented by: Azithromycin 500 mg/ Dextrose 255 mls @ 250 mls/hr IV Q24 [facility] Last Infusion: 10/25/19 13:44 Dose: Infused Documented by: Dextrose (Dextrose 10%-Water) 250 mls @ 999 mls/hr IV .Q16M PRN; Protocol PRN Reason: HYPOGLYCEMIA Famotidine 20 mg/ Sodium (Chloride) 10 mls @ 300 mls/hr IV Q12 [facility] Last Infusion: 10/25/19 21:10 Dose: Infused Documented by: Levothyroxine Sodium (Synthroid) 50 mcg PO SuSa@0600 [facility] Last Admin: 10/25/19 05:57 Dose: 50 mcg Documented by: Levothyroxine Sodium (Synthroid) 100 mcg PO MoTuWeThFr@0600 [facility] Last Admin: 10/26/19 06:26 Dose: 100 mcg Documented by: Multivitamins/Minerals (Multivitamin With Minerals (Bkc)) 1 tablet PO DAILY@0800 [facility] Last Admin: 10/25/19 10:28 Dose: 1 tablet Documented by: Ondansetron HCl (Zofran) 4 mg IV Q8H PRN PRN PRN Reason: NAUSEA/VOMITING Potassium Chloride (K-Dur) 20 meq PO BID [facility] Last Admin: 10/25/19 21:05 Dose: 20 meq Documented by: Sertraline HCl (Zoloft) 50 mg PO BID [facility] Last Admin: 10/25/19 21:05 Dose: 50 mg Documented by: Sodium Chloride () 10 - 40 ml IV UD PRN PRN Reason: SALINE FLUSH Last Admin: 10/25/19 10:17 Dose: 20 ml Documented by: STROKE Vital Signs/Narrative: Vital Signs Temp Pulse Resp BP Pulse Ox 10/26/19 07:39 79 10/26/19 07:00 79 20 H 127/79 H 94 10/26/19 06:55 96 10/26/19 06:00 97.5 F L 74 20 H 132/93 H 96 Medical Necessity - Tobacco Use Smoking Status: Never smoker Assessment/Plan All Active Problems (Last Updated 09/25/19 @ 14:00 by Jocy Nguyen) Acute respiratory failure with hypoxia (Acute) Right lower lobe pneumonia (Acute) Septic shock (Acute) Elevated troponin (Acute) H/O coronary artery bypass surgery (Resolved 02/26/13) History of non-ST elevation myocardial infarction (NSTEMI) (Resolved 06/17/19) CVA (cerebral vascular accident) (Resolved 06/30/19) Acute exacerbation of CHF (congestive heart failure) (Resolved) Dyspnea on exertion (Resolved) Vertigo (Resolved) 68 y/o admitted with a complaint of shortness of breath 1. Septic shock due to community acquired pneumonia * urine for strep and Legionella, and respiratory panel were negative * wbc down to 22 today. * on IV ceftriaxone and azithromycin * I do think patient meets criteria for COVID 19 testing; he hasnt had any recent exposure though. 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 * 2D echo pending. * critical care on board * blood cultures pending. * * 2. Acute hypoxic respiratory failure due to community acquired pneumonia * as under 1. Now off BIPAP and on 2L of oxygen. * continue breathing treatments with duonebs * critical care on board; titrate oxygen to maintain sats>90% 3. Nonstemi * Initial troponin was 0.832 but trended up to a peak of 2.5 * Cardiology consulted echo was ordered. Platelets more likely type II non- STEMI due to demand ischemia from septic shock. * Advocated conservative management for now in light of patient's septic shock and community-acquired pneumonia as well as acute hypoxic respiratory failure. dont recommend prepeat catheterisation as he had cath on 06/18/2019 * 2D echo pending. * carvedilol resumed * on aspirin and plavix. per cardiology, to add PO Cozaar 25mg daily, and titrate upwards as needed. Will start Cozarr once hydrocortisone is dc;d * 4. Acute metabolic encephalopathy due to community acquired pneumonia and septic shock * management as under 1 and 2. resolved. 5. History of adrenal insufficiency and orthostatic hypotension * patient on IV hydrocortisone 100mg q8. weaned down to IV hydrocortisone 50mg q12 * * 6. Hypertension; BP meds on hold o/a of septic shock 7. hyperlipidemia: on statin 8. Hypothyroidism: on synthroid 9. HFrEF: not in exacerbation now. lasix on hold. 10. CAD s/p CABG: on aspirin and statin. Carvedilol resumed. DVT prophylaxis; lovenox GI prophylaxis: IV famotidine Code status: full code * Inpatient E&M: 98253 Subs Hosp L3
--- NOTE | 2019-10-26 09:10 | PN.CARD_ITS ---
Subjectve: Patient doing quite well, did have some chest pain overnight when his blood pressure rebounded to be quite hypertensive after IV Levophed and IV stress dose steroids. Peak troponin 2.5 and trending downwards. Telemetry showed normal sinus rhythm, no acute changes. EKG showed normal sinus rhythm, no acute changes. Objective: Vital Signs Temp Pulse Resp BP Pulse Ox 97.5 F L 79 20 H 127/79 H 94 10/26/19 06:00 10/26/19 07:39 10/26/19 07:00 10/26/19 07:00 10/26/19 07:00 Oxygen Flow Rate (L/min) 2 Oxygen Delivery Method Nasal Cannula Weight: 212 lb 11.937 oz Body Mass Index (BMI) 29.5 Finger Stick Blood Glucose 109 Intake and Output for Last 24 Hours 10/24/19 10/25/19 10/26/19 23:59 23:59 23:59 Intake Total 5039.38 / 5279.38 1190.62 / 1190.62 50 / 50 Output Total 1100 / 1750 2675 / 2675 Balance 3939.38 / 3529.38 -1484.38 / -1484.38 50 / 50 General: Awake, Alert, Oriented x 3 HEENT: PERRL, EOMI, Sclera Non Icteric Neck: Supple, Good ROM, No Lymph Node Enlargement Lungs: Clear to auscultation Cardiovascular: Regular Rhythm, Normal S1, Normal S2, No Murmurs, No Rubs, No Gallops 10/26/19 01:20: Troponin I 0.541 H 10/26/19 04:12: WBC 22.1 H, RBC 3.47 L, Hgb 11.4 L, Hct 36.0 L, MCV 103.7 H, MCH 32.9 H, MCHC 31.7 L, Plt Count 183, MPV 9.8, Immature Gran % (Auto) 1.700 H, Neut % (Auto) 93.7 H, Lymph % (Auto) 2.1 L, Stephenson % (Auto) 2.4, Eos % (Auto) 0.0, Baso % (Auto) 0.1, Absolute Neuts (auto) 20.8 H, Nucleated RBC % 0 10/26/19 04:12: Sodium 140, Potassium 4.3, Chloride 109 H, Carbon Dioxide 27.0, Anion Gap 4 L, BUN 24 H, Creatinine 1.12, Est GFR (MDRD) Af Amer 84, Est GFR (MDRD) Non-Af 70, BUN/Creatinine Ratio 21.4 H, Glucose 136 H, Calcium 8.9 10/26/19 04:12: Troponin I 0.541 H 10/26/19 06:55: Troponin I 0.546 H Rhythm: EKG: ECHO: Stress Test: Cardiac Cath: PCI: CT Surgery: Holter monitor: EPS: PPM: CXR: Chest CT Scan: Medical Necessity - Tobacco Use Smoking Status: Never smoker Assessment/Plan 1. Coronary artery disease: Patient echocardiogram in 06/30/2019 with the following results: The estimated ejection fraction is 45 %. Normal LV size. Infero-Basal: Hypokinetic Posterior-Basal: Hypokinetic Basal inferoseptal: Hypokinetic Mild focal aortic valve calcification. Compared to previous study, the left ventricular systolic function is the same.. At this point appears the patient has hypertensive induced chest pain. Patient had repeat catheterization on 06/18/2019 with the following results: Diffuse coronary artery disease with stenosis noted in the [place] ramus intermedius, moderate disease noted in the right coronary artery and severe disease noted in the distal right coronary artery and moderate disease noted in the saphenous vein graft to the diagonal vessel. LEVINE graft to the Mid LAD is patent Saphenous Vein graft to the RPDA is totally occluded Sequential graft to the Diag and LCX with LCX portion occluded and moderate disease in preanastomotic segment. It was recommended that time the patient be treated medically and no intervention was recommended or performed at that time. Would not recommend repeat catheterization at this time. Would recommend avoidance of hypertensive episodes which may trigger chest pain and demand ischemia. Recommend baby aspirin, Plavix, Coreg. It appears his blood pressures not well controlled with the addition of stress dose steroids. Would recommend the addition of Cozaar 25 mg p.o. daily and titrate up from there. Patient apparently has very brittle blood pressure response to medications, and can swing from hypotensive to hypertensive with little adjustments. 2. Hyperlipidemia: Recommend continuing Lipitor therapy. Would not recommend repeating lipid profile at this time. 3. Pneumonia: The patient is evidence on chest x-ray of significant right-sided pneumonia and is currently undergoing antibiotic therapy, off Levophed, received stress dose steroids, and doing much better. Respiratory work-up in progress. 4. Discussed with Dr. Dunbar. Thank you very much for the opportunity to participate in the cardiac care of your patient. Inpatient E&M: [id number] Subs Hosp L2
[2019-10-26] MEDS: Hydrocortisone Sod Succinate 100 MG/2 ML Vial 50 MG IV ×2 (10:44→22:37)
[2019-10-26] MEDS: guaiFENesin 1,200 MG Tablet 1200 MG PO ×2 (10:44→22:36)
[2019-10-26] MEDS: Multivitamins,Ther W-Minerals Tablet 1 TABLET PO (10:44)
[2019-10-26] MEDS: Enoxaparin 40 MG/0.4 ML Syringe SC (10:44)
[2019-10-26] MEDS: Clopidogrel Bisulfate 75 MG Tablet PO (10:44)
[2019-10-26] MEDS: Aspirin E.C. 81 MG Tablet PO (10:44)
[2019-10-26] MEDS: Sertraline 50 MG Tablet PO ×2 (10:44→22:37)
[2019-10-26] MEDS: Famotidine 20 MG Tablet PO ×2 (10:45→22:36)
[2019-10-26] MEDS: 0.9% Saline Lock 10 ML Syringe IV ×2 (10:46→22:37)
[2019-10-26] MEDS: Carvedilol 3.125 MG TABLET PO ×2 (11:43→22:36)
--- NOTE | 2019-10-26 11:46 | CASEMGMT ---
RN MATILDA called patient in room for initial transition planning/care coordination assessment. RN MATILDA introduced self and role at [facility]. Patient is alert and oriented. Patient willing to participate in assessment and is able to answer all questions appropriately. Care providers, pharmacy, and demographics verified. Patient wishes to discharge home, denies need for home health at this time, will monitor progress with therapy. Patient states he has no further needs or concerns at this time. CM to follow for discharge planning needs that may arise. PCP: Tomasz Specialists: Manjinder grease renderer Preferred Pharmacy: [facility] Insurance: [facility] Prescription Benefit: yes Living Will/HPOA: none LNOK: Living Arrangements: Patient states he lives with in single story home with 1 step to enter the home. Patient states he is independent at home. Transportation: Self/ DME/HHC: Patient states he has cane at home. Denies previous HHC. If patient would require additional DME would like [facility]. 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 Will monitor therapy for need at HHC at discharge. Disposition Plan: Patient to discharge home with family support and follow-up plans in place. Will monitor progress with therapy for possible HHC and additional DME needs. Oriana SKELTON, RN, CM
--- NOTE | 2019-10-26 14:18 | CHAPLAIN ---
Type of Pastoral Visit _x__ Initial Visit ___ Follow-up Visit ___ On-call Visit ___ General Patient Visit ___ Spiritual Assessment ___ Family Conference ___ Bereavement ___ Rapid Response ___ Code Blue ___ Other (describe below) Pastoral Care Referral From _x__ Patient ___ Family ___ Nurse ___ Physician ___ Hospitality Specialist ___ Graduate Student ___ Other (describe below) Sacrament/Intervention _x__ Active listening ___ Anointing ___ Church ___ Bereavement ___ Communion ___ Jessy exploration ___ _x__ Life review _x__ Prayer ___ Reconciliation ___ Sacrament of Sick ___ Supportive presence ___ Wedding ___ Other (describe below) Pastoral Comments
[2019-10-26 15:42] LABS: Pathologist Review Reviewed
[2019-10-26] MEDS: Atorvastatin Calcium 20 MG Tablet PO (22:36)
[2019-10-27] VITALS (13 sets, daily range): BP systolic 136–164; BP diastolic 87–103; PULSE 74–88; RESP 16–22; TEMP 35.7–36.6; O2SAT 87–96
--- NOTE | 2019-10-27 00:06 | CPS ---
BIPAP NOT SET UP. PT UNABLE TO TOLERATE
[2019-10-27 05:42] LABS: Absolute Lymphocyte Count 0.62 X10^3/uL (0.83-4.51); Absolute Neutrophil Count 15.2 X10^3/uL (2.0-7.7); Basophil# 0.03 X10^3/uL; Basophil% 0.2 % (0-1); Hematocrit 37.5 % (40-54); Lymphocyte # 0.62 X10^3/ul (4.0); Lymphocyte % 3.8 % (19-41); Mean Corpuscular Hgb 32.7 pg (27.0-32.0); Mean Corpuscular Volume 102.2 fL (80-94); Mean Platelet Vol. 10.1 fl (6.2-12.0); Monocyte# 0.59 X10^3/uL; Monocyte% 3.6 % (0-10); NRBC Flagged by Analyzer 0 % (0-5); Neutrophil # 15.16 X10^3/uL (2.7-7.7); Neutrophil % 91.9 % (47-70); POSITIVE MORPHOLOGY YES; Platelet Count 199 K/mm3 (150-450); RBC Distribution Width CV 13.3 % (11.6-14.6); RBC Distribution Width SD 50.3 fl (35.1-43.9); Red Blood Count 3.67 M/mm3 (4.6-6.2); White Blood Count 16.5 K/mm3 (4.4-11.0)
[2019-10-27 05:48] LABS: Differential Indicated SCAN CRITERIA MET
[2019-10-27 06:00] LABS: Differential Comment SCANNED
[2019-10-27 06:07] LABS: Anion Gap 8 (5-15); BUN 25 mg/dL (7-18); Calcium,Total 9.2 mg/dL (8.5-10.1); Chloride 107 mmol/L (98-107); Creatinine, Serum 1.04 mg/dL (0.70-1.30); EST Glomerular Filtration Rate 76 mL/min (>60); Est Glom Filt Rate - Afr Amer 92 mL/min (>60); Estimated Creatinine Clearance 76.69 ml/min; Glucose 123 mg/dL (74-106); Potassium 3.9 mmol/L (3.5-5.1); Sodium Level 140 mmol/L (136-145)
[2019-10-27] MEDS: Levothyroxine 100 MCG Tablet PO (06:48)
--- NOTE | 2019-10-27 08:10 | PCM.PN.PUL ---
Patient Problems: Active and Suspected Problems (Last Updated 09/25/19 @ 14:00 by Jocy Nguyen) Acute respiratory failure with hypoxia (Acute) Right lower lobe pneumonia (Acute) Septic shock (Acute) Elevated troponin (Acute) Subjective: The patient was seen and examined at the bedside this morning. Events from the last 24 hours have been reviewed. The patient is currently afebrile, hemodynamically stable and maintaining appropriate oxygen saturations on room air. The patient will require 2 L/min of supplemental oxygen to be utilized with exertion upon discharge. Objective: The patient's most recent lab work, culture data and imaging studies have all been personally reviewed. Infectious work-up has been negative to date. - Physical Exam Vitals/I&O's: Vital Signs Temp Pulse Resp BP Pulse Ox 96.2 F L 88 20 H 161/103 H 94 10/27/19 04:22 10/27/19 06:53 10/27/19 04:22 10/27/19 04:22 10/27/19 04:22 Oxygen Flow Rate (L/min) 2 Oxygen Delivery Method Room Air Weight: 205 lb 0.478 oz Body Mass Index (BMI) 29.5 Finger Stick Blood Glucose 109 Intake and Output for Last 24 Hours 10/25/19 10/26/19 10/27/19 23:59 23:59 23:59 Intake Total 1190.62 / 1190.62 1050 / 1050 30 / 30 Output Total 2675 / 2675 1550 / 1550 300 / 300 Balance -1484.38 / -1484.38 -500 / -500 -270 / -270 General: Alert, Cooperative, No apparent distress HEENT: Atraumatic, Normocephalic Oral: No Gingival or Mucosal Lesions/ Ulcerations Neck: Supple, No Nodes, Trachea Midline Lungs: No rhonchi, No wheeze, No rales, Diminished Cardiovascular: Regular rate, Regular Rhythm, Normal S1, Normal S2 Abdomen: Bowel Sounds Present, Soft, Non Tender Extremities: No clubbing, No cyanosis Skin: No breakdown Musculoskeletal: No Tenderness to Palpation of Joints or Extremities, No Muscle Wasting Lymphatic: No Cervical, Supraclavicular, or Inguinal Adenopathy Neurological: Neuro grossly intact Psych/Mental Status: Normal Affect, Appropriate Labs (Last 48 Hours) 10/25/19 10/26/19 10/26/19 04:45 01:20 04:12 WBC 22.1 H RBC 3.47 L Hgb 11.4 L Hct 36.0 L MCV 103.7 H MCH 32.9 H MCHC 31.7 L RDW Std Deviation 52.9 H RDW Coeff of Bharath 13.9 Plt Count 183 MPV 9.8 Immature Gran % (Auto) 1.700 H Neut % (Auto) 93.7 H Lymph % (Auto) 2.1 L [place] % (Auto) 2.4 Eos % (Auto) 0.0 Baso % (Auto) 0.1 Absolute Neuts (auto) 20.8 H Absolute Lymphs (auto) 0.46 L Nucleated RBC % 0 Differential Comment Diff Path Review Reviewed Platelet Estimate ADEQUATE Hypochromasia RARE Macrocytosis 2+ Sodium Potassium Chloride Carbon Dioxide Anion Gap BUN Creatinine Estim Creat Clear Calc Est GFR (MDRD) Af Amer Est GFR (MDRD) Non-Af BUN/Creatinine Ratio Glucose Calcium Troponin I 0.541 H 10/26/19 10/26/19 10/26/19 04:12 04:12 06:55 WBC RBC Hgb Hct MCV MCH MCHC RDW Std Deviation RDW Coeff of Bharath Plt Count MPV Immature Gran % (Auto) Neut % (Auto) Lymph % (Auto) [place] % (Auto) Eos % (Auto) Baso % (Auto) Absolute Neuts (auto) Absolute Lymphs (auto) Nucleated RBC % Differential Comment Diff Path Review Platelet Estimate Hypochromasia Macrocytosis Sodium 140 Potassium 4.3 Chloride 109 H Carbon Dioxide 27.0 Anion Gap 4 L BUN 24 H Creatinine 1.12 Estim Creat Clear Calc 71.21 Est GFR (MDRD) Af Amer 84 Est GFR (MDRD) Non-Af 70 BUN/Creatinine Ratio 21.4 H Glucose 136 H Calcium 8.9 Troponin I 0.541 H 0.546 H 10/27/19 10/27/19 04:58 04:58 WBC 16.5 H RBC 3.67 L Hgb 12.0 L Hct 37.5 L MCV 102.2 H MCH 32.7 H MCHC 32.0 RDW Std Deviation 50.3 H RDW Coeff of Bharath 13.3 Plt Count 199 MPV 10.1 Immature Gran % (Auto) 0.500 Neut % (Auto) 91.9 H Lymph % (Auto) 3.8 L [place] % (Auto) 3.6 Eos % (Auto) 0.0 Baso % (Auto) 0.2 Absolute Neuts (auto) 15.2 H Absolute Lymphs (auto) 0.62 L Nucleated RBC % 0 Differential Comment SCANNED Diff Path Review Platelet Estimate Hypochromasia Macrocytosis Sodium 140 Potassium 3.9 Chloride 107 Carbon Dioxide 25.0 Anion Gap 8 BUN 25 H Creatinine 1.04 Estim Creat Clear Calc 76.69 Est GFR (MDRD) Af Amer 92 Est GFR (MDRD) Non-Af 76 BUN/Creatinine Ratio 24.0 H Glucose 123 H Calcium 9.2 Troponin I Microbiology 10/24/19 11:00 Urine Catheter - [facility] Urine Culture - Preliminary Culture exhibits no growth. Clinical Impression(s) from Imaging Studies Chest X-Ray 10/24/19 07:49 IMPRESSION: 1. Patchy infiltrate in right lower lobe likely due to pneumonia. 2. Mild infiltrate in right upper lobe. Electronically Signed: Mervin Addison MD at 8:38 EDT Tel , Service support , Chest X-Ray 10/24/19 11:20 IMPRESSION: 1. Left internal jugular central venous catheter in place. 2. Right lung infiltrates increased since the previous exam. Electronically Signed: Mervin Addison MD at 12:18 EDT Tel , Service support , Current Medications Acetaminophen (Tylenol) 650 mg PO Q6H PRN PRN PRN Reason: Pain Score 1-10/Temp > 100.7 F Last Admin: 10/26/19 01:09 Dose: 650 mg Documented by: Albuterol Sulfate (Ventolin Aerosols) 2.5 mg INHALATION Q4H PRN PRN Reason: SOB &/OR WHEEZING Aspirin (Ecotrin) 81 mg PO DAILY@0800 [facility] Last Admin: 10/26/19 10:44 Dose: 81 mg Documented by: Atorvastatin Calcium (Lipitor) 20 mg PO QHS [facility] Last Admin: 10/26/19 22:36 Dose: 20 mg Documented by: Carvedilol (Coreg) 3.125 mg PO BID [facility] Last Admin: 10/26/19 22:36 Dose: 3.125 mg Documented by: Clopidogrel Bisulfate (Plavix) 75 mg PO DAILY [facility] Last Admin: 10/26/19 10:44 Dose: 75 mg Documented by: Enoxaparin Sodium (Lovenox) 40 mg SC DAILY [facility] Last Admin: 10/26/19 10:44 Dose: 40 mg Documented by: Famotidine (Pepcid) 20 mg PO BID [facility] Last Admin: 10/26/19 22:36 Dose: 20 mg Documented by: Glucagon () 1 mg IM .X1 PRN PRN Reason: Hypoglycemia Guaifenesin (Mucinex) 1,200 mg PO BID [facility] Last Admin: 10/26/19 22:36 Dose: 1,200 mg Documented by: Hydrocortisone Sodium Succinate (Solu-Cortef) 50 mg IV Q12 [facility] Last Admin: 10/26/19 22:37 Dose: 50 mg Documented by: Sodium Chloride () 250 mls @ 15 mls/hr IV .[id number] PRN PRN Reason: Saline Flush Sodium Chloride () 250 mls @ 15 mls/hr IV .[id number] PRN PRN Reason: Additional IVPB Infusion Ceftriaxone Sodium 2 gm/ (Sodium Chloride) 50 mls @ 100 mls/hr IV Q24 [facility] Last Infusion: 10/26/19 12:10 Dose: Infused Documented by: Azithromycin 500 mg/ Dextrose 255 mls @ 250 mls/hr IV Q24 [facility] Last Infusion: 10/26/19 12:10 Dose: Infused Documented by: Dextrose (Dextrose 10%-Water) 250 mls @ 999 mls/hr IV .Q16M PRN; Protocol PRN Reason: HYPOGLYCEMIA Levothyroxine Sodium (Synthroid) 50 mcg PO SuSa@0600 [facility] Last Admin: 10/25/19 05:57 Dose: 50 mcg Documented by: Levothyroxine Sodium (Synthroid) 100 mcg PO MoTuWeThFr@0600 [facility] Last Admin: 10/27/19 06:48 Dose: 100 mcg Documented by: Lisinopril (Zestril) 2.5 mg PO DAILY [facility] Multivitamins/Minerals (Multivitamin With Minerals (Bkc)) 1 tablet PO DAILY@0800 [facility] Last Admin: 10/26/19 10:44 Dose: 1 tablet Documented by: Ondansetron HCl (Zofran) 4 mg IV Q8H PRN PRN PRN Reason: NAUSEA/VOMITING Potassium Chloride (K-Dur) 20 meq PO BID [facility] Last Admin: 10/26/19 22:36 Dose: 20 meq Documented by: Sertraline HCl (Zoloft) 50 mg PO BID [facility] Last Admin: 10/26/19 22:37 Dose: 50 mg Documented by: Sodium Chloride () 10 - 40 ml IV UD PRN PRN Reason: SALINE FLUSH Last Admin: 10/26/19 22:37 Dose: 20 ml Documented by: Medical Necessity - Tobacco Use Smoking Status: Never smoker Assessment/Plan All Active Problems (Last Updated 09/25/19 @ 14:00 by Jocy Nguyen) Acute respiratory failure with hypoxia (Acute) Right lower lobe pneumonia (Acute) Septic shock (Acute) Elevated troponin (Acute) H/O coronary artery bypass surgery (Resolved 02/26/13) History of non-ST elevation myocardial infarction (NSTEMI) (Resolved 06/17/19) CVA (cerebral vascular accident) (Resolved 06/30/19) Acute exacerbation of CHF (congestive heart failure) (Resolved) Dyspnea on exertion (Resolved) Vertigo (Resolved) RECOMMENDATIONS: 1. Continue empiric antimicrobials with plans to complete a 7-day treatment course. 2. Will transition to hydrocortisone 50 mg once daily today. If stable, the patient can be transition back to fludrocortisone PO beginning tomorrow. 3. Continue to wean supplemental oxygen to maintain saturations at or above 90%. 4. Continue bronchodilators. 5. Encourage incentive spirometer use and mobilize patient as tolerated. IMPRESSIONS: 1. Septic shock with relative adrenal insufficiency secondary to right lower lobe community-acquired pneumonia Improving clinically. The patient is hemodynamically stable off of vasopressor support. At this time, stress dose steroids will be weaned to 50 mg once daily. His outpatient Florinef can be resumed tomorrow, if he remains hemodynamically stable. Continue empiric antimicrobials as ordered. Wean supplemental oxygen to maintain saturations at or above 90%. 2. Acute hypoxemic respiratory failure secondary to community-acquired pneumonia Continue current supportive measures and wean supplemental oxygen as tolerated. Encourage incentive spirometer use and mobilize patient as tolerated. Continue bronchodilators as ordered. I would plan to complete a 7-day treatment course of antibiotics. 3. Chronic systolic heart failure/troponin elevation Likely secondary to demand ischemia in the setting of #1. Baseline cardiac medications can be restarted from my perspective. 4. Hypertension/hyperlipidemia/depression/GERD/hypothyroidism Complicates care, management, recovery and prognosis. Continue home medications as needed. This note was generated with [employer] dictation software. It may contain incorrect words, spelling, and punctuation that were not noted in checking the note before signing. Inpatient E&M: 09529 Subs Hosp L2
[2019-10-27] MEDS: Famotidine 20 MG Tablet PO ×2 (08:52→21:32)
[2019-10-27] MEDS: Multivitamins,Ther W-Minerals Tablet 1 TABLET PO (08:53)
[2019-10-27] MEDS: guaiFENesin 1,200 MG Tablet 1200 MG PO ×2 (08:53→21:32)
[2019-10-27] MEDS: Carvedilol 3.125 MG TABLET PO ×2 (08:53→21:32)
[2019-10-27] MEDS: Sertraline 50 MG Tablet PO ×2 (08:53→21:33)
[2019-10-27] MEDS: Aspirin E.C. 81 MG Tablet PO (08:53)
[2019-10-27] MEDS: Enoxaparin 40 MG/0.4 ML Syringe SC (08:53)
[2019-10-27] MEDS: Clopidogrel Bisulfate 75 MG Tablet PO (08:53)
[2019-10-27] MEDS: Hydrocortisone Sod Succinate 100 MG/2 ML Vial 50 MG IV (08:53)
[2019-10-27] MEDS: 0.9% Saline Lock 10 ML Syringe IV (08:54)
[2019-10-27] MEDS: Acetaminophen 325 MG Tablet 650 MG PO (09:52)
[2019-10-27] MEDS: Lisinopril 2.5 MG Tablet PO (09:52)
--- NOTE | 2019-10-27 10:00 | NURSING ---
Per infectious disease doctor, patient ok to come out of isolation
--- NOTE | 2019-10-27 10:41 | CASEMGMT ---
Pt does qualify for home oxygen at this time and pt states preference for [facility] previously. Order faxed to [facility] at this time and F2F will be faxed when obtained. Therapy states no further therapy needed at discharge at this time. Call to pt's room at this time and pt states no needs for therapy at discharge at this time. Pt is aware that he qualified and is still agreeable to [facility] at this time. Pt voices no further concerns/needs at this time. SStyuniel ALONZO CM
--- NOTE | 2019-10-27 12:00 | PCM.PN.HOSP ---
Patient Problems: Active and Suspected Problems (Last Updated 09/25/19 @ 14:00 by Jocy Nguyen) Acute respiratory failure with hypoxia (Acute) Right lower lobe pneumonia (Acute) Septic shock (Acute) Elevated troponin (Acute) Subjective: Patient seen and examined. He had no complaints today and had a good night's rest. He denies shortness of breath, fever or chills. Review for further work-up negative. Labs and vitals reviewed. Blood pressure still poorly controlled with blood pressure being 164/99 this morning. BBC is down to 16.5. Vitals/I&O's: Vital Signs Temp Pulse Resp BP Pulse Ox 97.5 F L 74 18 164/99 H 92 10/27/19 08:50 10/27/19 11:03 10/27/19 08:50 10/27/19 08:50 10/27/19 10:13 Oxygen Flow Rate (L/min) [ 2 AMBULATION with Oxygen] Oxygen Flow Rate (L/min) [ 0 AMBULATING on Room Air] Oxygen Flow Rate (L/min) [At 0 REST on Room Air] Oxygen Flow Rate (L/min) 2 Oxygen Delivery Method Nasal Cannula Weight: 205 lb 0.478 oz Body Mass Index (BMI) 29.5 Finger Stick Blood Glucose 109 Intake and Output for Last 24 Hours 10/25/19 10/26/19 10/27/19 23:59 23:59 23:59 Intake Total 1190.62 / 1190.62 1050 / 1050 285 / 285 Output Total 2675 / 2675 1550 / 1550 300 / 300 Balance -1484.38 / -1484.38 -500 / -500 -15 / -15 General: No apparent distress, alert, responsive HEENT: Atraumatic, PERRLA, EOMI, Normocephalic Oral: Dry Mucosa Neck: Supple, No JVD, Negative Carotid Bruits Lungs: diminished breath sounds bibasally, no wheezes or crackles. On 2L of oxygen. Cardiovascular: Regular rate, Regular Rhythm, Normal S1, Normal S2, No murmurs Abdomen: Bowel Sounds Present, Soft, Non Tender, no organomegaly Extremities: No clubbing, No cyanosis, No edema, Capillary Refill Less than 3 Seconds Skin: No rashes, No breakdown Musculoskeletal: No Tenderness to Palpation of Joints or Extremities Lymphatic: No Cervical, Supraclavicular, or Inguinal Adenopathy Neurological: Cranial nerves II-XII grossly intact, Power 5/5 in all extremities. normal tone Psych/Mental Status: - -normal affect Microbiology Past 72 Hours 10/24/19 11:00 Urine Catheter - [facility] Urine Culture - Final Culture exhibits no growth. 10/24/19 11:00 Urine Catheter - [facility] Streptococcus pneumoniae Antigen (M - Final 10/24/19 11:00 Urine Catheter - [facility] Legionella Antigen - Final 10/24/19 08:49 Mucosa - Nasopharyngeal Respiratory Panel (PCR) - Final 10/24/19 08:05 Mucosa - Nasopharyngeal Rapid RSV (DFA) - Final 10/24/19 08:05 Mucosa - Nasopharyngeal Influenza Types A,B Direct FA (ALEXANDRA) - Final Laboratory Results 10/25/19 04:45: Diff Path Review Reviewed 10/27/19 04:58: WBC 16.5 H, RBC 3.67 L, Hgb 12.0 L, Hct 37.5 L, MCV 102.2 H, MCH 32.7 H, MCHC 32.0, RDW Std Deviation 50.3 H, RDW Coeff of Bharath 13.3, Plt Count 199, MPV 10.1, Immature Gran % (Auto) 0.500, Neut % (Auto) 91.9 H, Lymph % (Auto) 3.8 L, [place] % (Auto) 3.6, Eos % (Auto) 0.0, Baso % (Auto) 0.2, Absolute Neuts (auto) 15.2 H, Absolute Lymphs (auto) 0.62 L, Nucleated RBC % 0, Differential Comment SCANNED 10/27/19 04:58: Sodium 140, Potassium 3.9, Chloride 107, Carbon Dioxide 25.0, Anion Gap 8, BUN 25 H, Creatinine 1.04, Estim Creat Clear Calc 76.69, Est GFR (MDRD) Af Amer 92, Est GFR (MDRD) Non-Af 76, BUN/Creatinine Ratio 24.0 H, Glucose 123 H, Calcium 9.2 Current Medications Acetaminophen (Tylenol) 650 mg PO Q6H PRN PRN PRN Reason: Pain Score 1-10/Temp > 100.7 F Last Admin: 10/27/19 09:52 Dose: 650 mg Documented by: Albuterol Sulfate (Ventolin Aerosols) 2.5 mg INHALATION Q4H PRN PRN Reason: SOB &/OR WHEEZING Aspirin (Ecotrin) 81 mg PO DAILY@0800 [facility] Last Admin: 10/27/19 08:53 Dose: 81 mg Documented by: Atorvastatin Calcium (Lipitor) 20 mg PO QHS [facility] Last Admin: 10/26/19 22:36 Dose: 20 mg Documented by: Carvedilol (Coreg) 3.125 mg PO BID [facility] Last Admin: 10/27/19 08:53 Dose: 3.125 mg Documented by: Clopidogrel Bisulfate (Plavix) 75 mg PO DAILY [facility] Last Admin: 10/27/19 08:53 Dose: 75 mg Documented by: Enoxaparin Sodium (Lovenox) 40 mg SC DAILY [facility] Last Admin: 10/27/19 08:53 Dose: 40 mg Documented by: Famotidine (Pepcid) 20 mg PO BID [facility] Last Admin: 10/27/19 08:52 Dose: 20 mg Documented by: Glucagon () 1 mg IM .X1 PRN PRN Reason: Hypoglycemia Guaifenesin (Mucinex) 1,200 mg PO BID [facility] Last Admin: 10/27/19 08:53 Dose: 1,200 mg Documented by: Hydrocortisone Sodium Succinate (Solu-Cortef) 50 mg IV Q24 [facility] Last Admin: 10/27/19 08:53 Dose: 50 mg Documented by: Sodium Chloride () 250 mls @ 15 mls/hr IV .[id number] PRN PRN Reason: Saline Flush Sodium Chloride () 250 mls @ 15 mls/hr IV .[id number] PRN PRN Reason: Additional IVPB Infusion Ceftriaxone Sodium 2 gm/ (Sodium Chloride) 50 mls @ 100 mls/hr IV Q24 [facility] Last Admin: 10/27/19 11:05 Dose: 100 mls/hr Documented by: Azithromycin 500 mg/ Dextrose 255 mls @ 250 mls/hr IV Q24 [facility] Last Infusion: 10/27/19 10:55 Dose: Infused Documented by: Dextrose (Dextrose 10%-Water) 250 mls @ 999 mls/hr IV .Q16M PRN; Protocol PRN Reason: HYPOGLYCEMIA Levothyroxine Sodium (Synthroid) 50 mcg PO SuSa@0600 [facility] Last Admin: 10/25/19 05:57 Dose: 50 mcg Documented by: Levothyroxine Sodium (Synthroid) 100 mcg PO MoTuWeThFr@0600 [facility] Last Admin: 10/27/19 06:48 Dose: 100 mcg Documented by: Lisinopril (Zestril) 2.5 mg PO DAILY [facility] Last Admin: 10/27/19 09:52 Dose: 2.5 mg Documented by: Multivitamins/Minerals (Multivitamin With Minerals (Bkc)) 1 tablet PO DAILY@0800 [facility] Last Admin: 10/27/19 08:53 Dose: 1 tablet Documented by: Ondansetron HCl (Zofran) 4 mg IV Q8H PRN PRN PRN Reason: NAUSEA/VOMITING Potassium Chloride (K-Dur) 20 meq PO BID [facility] Last Admin: 10/27/19 08:53 Dose: 20 meq Documented by: Sertraline HCl (Zoloft) 50 mg PO BID [facility] Last Admin: 10/27/19 08:53 Dose: 50 mg Documented by: Sodium Chloride () 10 - 40 ml IV UD PRN PRN Reason: SALINE FLUSH Last Admin: 10/27/19 08:54 Dose: 10 ml Documented by: STROKE Vital Signs/Narrative: Vital Signs Temp Pulse Resp BP Pulse Ox Pulse Ox Pulse Ox 10/27/19 11:03 74 10/27/19 10:13 87 93 10/27/19 09:56 96 10/27/19 08:50 97.5 F L 75 18 164/99 H 93 Pulse Ox 10/27/19 11:03 10/27/19 10:13 92 10/27/19 09:56 10/27/19 08:50 Medical Necessity - Tobacco Use Smoking Status: Never smoker Assessment/Plan All Active Problems (Last Updated 09/25/19 @ 14:00 by Jocy Nguyen) Acute respiratory failure with hypoxia (Acute) Right lower lobe pneumonia (Acute) Septic shock (Acute) Elevated troponin (Acute) H/O coronary artery bypass surgery (Resolved 02/26/13) History of non-ST elevation myocardial infarction (NSTEMI) (Resolved 06/17/19) CVA (cerebral vascular accident) (Resolved 06/30/19) Acute exacerbation of CHF (congestive heart failure) (Resolved) Dyspnea on exertion (Resolved) Vertigo (Resolved) 68 y/o admitted with a complaint of shortness of breath 1. Septic shock due to community acquired pneumonia urine for strep and Legionella, and respiratory panel were negative wbc down to 16.5 on IV ceftriaxone and azithromycin 2D echo; EF of 60%, with normal LV size and moderate concentric LV hypertrophy with no regional wall motion abnormalities. critical care on board blood cultures pending. 2. Acute hypoxic respiratory failure due to community acquired pneumonia as under 1.on 2L of oxygen. Dropped to 87% on room air with ambulation continue breathing treatments with [facility] critical care on board; titrate oxygen to maintain sats>90% will need 2L of oxygen at home as he qualified for home oxygen. 3. Nonstemi Initial troponin was 0.832 but trended up to a peak of 2.5 Cardiology on board; think it is likely type II [place] due to demand ischemia. Advocated conservative management for now in light of patient's septic shock and community-acquired pneumonia as well as acute hypoxic respiratory failure. dont recommend repeat catheterisation as he had cath on 06/18/2019 2D echo as under 1 carvedilol resumed. Cozaar added on today. 4. Acute metabolic encephalopathy due to community acquired pneumonia and septic shock management as under 1 and 2. resolved. 5. History of adrenal insufficiency and orthostatic hypotension patient on IV hydrocortisone 100mg q8. weaned down to IV hydrocortisone 50mg daily will resume fludrocortisone tomorrow 6. Hypertension;carvedilol resumed. Now on losartan. 7. hyperlipidemia: on statin 8. Hypothyroidism: on synthroid 9. HFrEF: not in exacerbation now. lasix on hold. 10. CAD s/p CABG: on aspirin and statin. Carvedilol resumed. DVT prophylaxis; lovenox GI prophylaxis: IV famotidine Code status: full code Disposition: for likely dc tomorrow Inpatient E&M: 56299 Subs Hosp L2
[2019-10-27] MEDS: Atorvastatin Calcium 20 MG Tablet PO (21:32)
[2019-10-28] VITALS (19 sets, daily range): BP systolic 66–155; BP diastolic 51–107; PULSE 67–89; RESP 14–89; TEMP 36.3–37; O2SAT 88–94
--- NOTE | 2019-10-28 03:25 | NURSING ---
Pt supplemental oxygen turned up to 3L at this time as pt oxygen saturation was in the mid 80s. Pt encouraged to us incentive spirometer. Pt cough produced sputum. Pt airway sounds moist. Oxygen saturations on 3L now 91%. Will contact respiratory to asses patient. Pt denies shortness of breath.
[2019-10-28] MEDS: Albuterol 2.5 MG/3 ML VIAL.NEB. INHALATION ×2 (03:35→07:39)
[2019-10-28] MEDS: Levothyroxine 100 MCG Tablet PO (05:28)
[2019-10-28] MEDS: Acetaminophen 325 MG Tablet 650 MG PO ×3 (05:28→22:51)
[2019-10-28 06:11] LABS: Absolute Lymphocyte Count 0.95 X10^3/uL (0.83-4.51); Basophil# 0.04 X10^3/uL; Basophil% 0.3 % (0-1); Eosinophil# 0.09 X10^3/uL; Eosinophils% 0.7 % (0-5); Hematocrit 39.8 % (40-54); Hemoglobin 13.2 g/dL (13.0-16.5); Lymphocyte # 0.95 X10^3/ul (4.0); Lymphocyte % 7.1 % (19-41); Mean Corp Hgb Conc 33.2 g/dL (32-36); Mean Corpuscular Hgb 33.4 pg (27.0-32.0); Mean Corpuscular Volume 100.8 fL (80-94); Mean Platelet Vol. 9.9 fl (6.2-12.0); Monocyte# 1.19 X10^3/uL; Monocyte% 8.9 % (0-10); NRBC Flagged by Analyzer 0 % (0-5); Neutrophil # 10.99 X10^3/uL (2.7-7.7); Neutrophil % 82.3 % (47-70); Platelet Count 208 K/mm3 (150-450); RBC Distribution Width CV 12.9 % (11.6-14.6); RBC Distribution Width SD 48.4 fl (35.1-43.9); Red Blood Count 3.95 M/mm3 (4.6-6.2); White Blood Count 13.4 K/mm3 (4.4-11.0)
[2019-10-28 06:38] LABS: Anion Gap 10 (5-15); BUN 25 mg/dL (7-18); BUN/Creat Ratio 23.4 RATIO (10-20); Calcium,Total 9.3 mg/dL (8.5-10.1); Chloride 105 mmol/L (98-107); Creatinine, Serum 1.07 mg/dL (0.70-1.30); EST Glomerular Filtration Rate 73 mL/min (>60); Est Glom Filt Rate - Afr Amer 89 mL/min (>60); Estimated Creatinine Clearance 74.54 ml/min; Glucose 88 mg/dL (74-106); Potassium 3.6 mmol/L (3.5-5.1); Sodium Level 140 mmol/L (136-145)
--- NOTE | 2019-10-28 07:14 | PCM.PN.PUL ---
Patient Problems: Active and Suspected Problems (Last Updated 09/25/19 @ 14:00 by Jocy Nguyen) Acute respiratory failure with hypoxia (Acute) Right lower lobe pneumonia (Acute) Septic shock (Acute) Elevated troponin (Acute) Subjective: The patient was seen and examined at the bedside this morning. Events from the last 24 hours have been reviewed. The patient is currently afebrile, hemodynamically stable and maintaining appropriate oxygen saturations on 5 L/min via nasal cannula. The patient has been coughing more in the last 12 hours and appears to be mobilizing more secretions. Objective: The patient's most recent lab work, culture data and imaging studies have all been personally reviewed. Infectious work-up has been negative to date. - Physical Exam Vitals/I&O's: Vital Signs Temp Pulse Resp BP Pulse Ox 97.5 F L 82 16 129/89 H 92 10/28/19 06:47 10/28/19 06:47 10/28/19 06:47 10/28/19 06:47 10/28/19 06:47 Oxygen Flow Rate (L/min) [ 2 AMBULATION with Oxygen] Oxygen Flow Rate (L/min) [ 0 AMBULATING on Room Air] Oxygen Flow Rate (L/min) [At 0 REST on Room Air] Oxygen Flow Rate (L/min) 5 Oxygen Delivery Method Nasal Cannula Weight: 204 lb 9.423 oz Body Mass Index (BMI) 29.5 Finger Stick Blood Glucose 109 Intake and Output for Last 24 Hours 10/26/19 10/27/19 10/28/19 23:59 23:59 23:59 Intake Total 1050 / 1050 862 / 862 30 / 30 Output Total 1550 / 1550 1600 / 1600 825 / 825 Balance -500 / -500 -738 / -738 -795 / -795 General: Alert, Cooperative, No apparent distress, - - Currently receiving an aerosol treatment HEENT: Atraumatic, Normocephalic Oral: No Gingival or Mucosal Lesions/ Ulcerations Neck: Supple, No Nodes, Trachea Midline Lungs: Diminished, - - Scant rhonchi which clears with coughing. Cardiovascular: Regular rate, Regular Rhythm, Normal S1, Normal S2, No murmurs Abdomen: Bowel Sounds Present, Soft, Non Tender Extremities: No clubbing, No cyanosis, No edema Skin: No breakdown Musculoskeletal: No Tenderness to Palpation of Joints or Extremities, No Muscle Wasting Lymphatic: No Cervical, Supraclavicular, or Inguinal Adenopathy Neurological: Cranial nerves II-XII grossly intact, Neuro grossly intact Psych/Mental Status: Alert and oriented to time, place, person, mood and affect Labs (Last 48 Hours) 10/25/19 10/26/19 10/27/19 04:45 06:55 04:58 WBC 16.5 H RBC 3.67 L Hgb 12.0 L Hct 37.5 L MCV 102.2 H MCH 32.7 H MCHC 32.0 RDW Std Deviation 50.3 H RDW Coeff of Bharath 13.3 Plt Count 199 MPV 10.1 Immature Gran % (Auto) 0.500 Neut % (Auto) 91.9 H Lymph % (Auto) 3.8 L [place] % (Auto) 3.6 Eos % (Auto) 0.0 Baso % (Auto) 0.2 Absolute Neuts (auto) 15.2 H Absolute Lymphs (auto) 0.62 L Nucleated RBC % 0 Differential Comment SCANNED Diff Path Review Reviewed Sodium Potassium Chloride Carbon Dioxide Anion Gap BUN Creatinine Estim Creat Clear Calc Est GFR (MDRD) Af Amer Est GFR (MDRD) Non-Af BUN/Creatinine Ratio Glucose Calcium Troponin I 0.546 H 10/27/19 10/28/19 10/28/19 04:58 05:14 05:14 WBC 13.4 H RBC 3.95 L Hgb 13.2 Hct 39.8 L MCV 100.8 H MCH 33.4 H MCHC 33.2 RDW Std Deviation 48.4 H RDW Coeff of Bharath 12.9 Plt Count 208 MPV 9.9 Immature Gran % (Auto) 0.700 Neut % (Auto) 82.3 H Lymph % (Auto) 7.1 L [place] % (Auto) 8.9 Eos % (Auto) 0.7 Baso % (Auto) 0.3 Absolute Neuts (auto) 11.0 H Absolute Lymphs (auto) 0.95 Nucleated RBC % 0 Differential Comment Diff Path Review Sodium 140 140 Potassium 3.9 3.6 Chloride 107 105 Carbon Dioxide 25.0 25.0 Anion Gap 8 10 BUN 25 H 25 H Creatinine 1.04 1.07 Estim Creat Clear Calc 76.69 74.54 Est GFR (MDRD) Af Amer 92 89 Est GFR (MDRD) Non-Af 76 73 BUN/Creatinine Ratio 24.0 H 23.4 H Glucose 123 H 88 Calcium 9.2 9.3 Troponin I Microbiology 10/24/19 11:00 Urine Catheter - Acuna Urine Culture - Final Culture exhibits no growth. Clinical Impression(s) from Imaging Studies Chest X-Ray 10/24/19 07:49 IMPRESSION: 1. Patchy infiltrate in right lower lobe likely due to pneumonia. 2. Mild infiltrate in right upper lobe. Electronically Signed: Mervin Addison MD at 8:38 EDT Tel , Service support , Chest X-Ray 10/24/19 11:20 IMPRESSION: 1. Left internal jugular central venous catheter in place. 2. Right lung infiltrates increased since the previous exam. Electronically Signed: Mervin Addison MD at 12:18 EDT Tel , Service support , Current Medications Acetaminophen (Tylenol) 650 mg PO Q6H PRN PRN PRN Reason: Pain Score 1-10/Temp > 100.7 F Last Admin: 10/28/19 05:28 Dose: 650 mg Documented by: Albuterol Sulfate (Ventolin Aerosols) 2.5 mg INHALATION Q4H PRN PRN Reason: SOB &/OR WHEEZING Last Admin: 10/28/19 03:35 Dose: 2.5 mg Documented by: Aspirin (Ecotrin) 81 mg PO DAILY@0800 [facility] Last Admin: 10/27/19 08:53 Dose: 81 mg Documented by: Atorvastatin Calcium (Lipitor) 20 mg PO QHS [facility] Last Admin: 10/27/19 21:32 Dose: 20 mg Documented by: Carvedilol (Coreg) 3.125 mg PO BID [facility] Last Admin: 10/27/19 21:32 Dose: 3.125 mg Documented by: Clopidogrel Bisulfate (Plavix) 75 mg PO DAILY [facility] Last Admin: 10/27/19 08:53 Dose: 75 mg Documented by: Enoxaparin Sodium (Lovenox) 40 mg SC DAILY [facility] Last Admin: 10/27/19 08:53 Dose: 40 mg Documented by: Famotidine (Pepcid) 20 mg PO BID [facility] Last Admin: 10/27/19 21:32 Dose: 20 mg Documented by: Glucagon () 1 mg IM .X1 PRN PRN Reason: Hypoglycemia Guaifenesin (Mucinex) 1,200 mg PO BID [facility] Last Admin: 10/27/19 21:32 Dose: 1,200 mg Documented by: Hydrocortisone Sodium Succinate (Solu-Cortef) 50 mg IV Q24 [facility] Last Admin: 10/27/19 08:53 Dose: 50 mg Documented by: Sodium Chloride () 250 mls @ 15 mls/hr IV .[id number] PRN PRN Reason: Saline Flush Sodium Chloride () 250 mls @ 15 mls/hr IV .[id number] PRN PRN Reason: Additional IVPB Infusion Ceftriaxone Sodium 2 gm/ (Sodium Chloride) 50 mls @ 100 mls/hr IV Q24 [facility] Last Infusion: 10/27/19 11:45 Dose: Infused Documented by: Azithromycin 500 mg/ Dextrose 255 mls @ 250 mls/hr IV Q24 [facility] Last Infusion: 10/27/19 10:55 Dose: Infused Documented by: Dextrose (Dextrose 10%-Water) 250 mls @ 999 mls/hr IV .Q16M PRN; Protocol PRN Reason: HYPOGLYCEMIA Levothyroxine Sodium (Synthroid) 50 mcg PO SuSa@0600 [facility] Last Admin: 10/25/19 05:57 Dose: 50 mcg Documented by: Levothyroxine Sodium (Synthroid) 100 mcg PO MoTuWeThFr@0600 [facility] Last Admin: 10/28/19 05:28 Dose: 100 mcg Documented by: Losartan Potassium (Cozaar) 25 mg PO DAILY [facility] Multivitamins/Minerals (Multivitamin With Minerals (Bkc)) 1 tablet PO DAILY@0800 [facility] Last Admin: 10/27/19 08:53 Dose: 1 tablet Documented by: Ondansetron HCl (Zofran) 4 mg IV Q8H PRN PRN PRN Reason: NAUSEA/VOMITING Potassium Chloride (K-Dur) 20 meq PO BID [facility] Last Admin: 10/27/19 21:32 Dose: 20 meq Documented by: Sertraline HCl (Zoloft) 50 mg PO BID [facility] Last Admin: 10/27/19 21:33 Dose: 50 mg Documented by: Sodium Chloride () 10 - 40 ml IV UD PRN PRN Reason: SALINE FLUSH Last Admin: 10/27/19 08:54 Dose: 10 ml Documented by: Medical Necessity - Tobacco Use Smoking Status: Never smoker Assessment/Plan All Active Problems (Last Updated 09/25/19 @ 14:00 by Jocy Nguyen) Acute respiratory failure with hypoxia (Acute) Right lower lobe pneumonia (Acute) Septic shock (Acute) Elevated troponin (Acute) H/O coronary artery bypass surgery (Resolved 02/26/13) History of non-ST elevation myocardial infarction (NSTEMI) (Resolved 06/17/19) CVA (cerebral vascular accident) (Resolved 06/30/19) Acute exacerbation of CHF (congestive heart failure) (Resolved) Dyspnea on exertion (Resolved) Vertigo (Resolved) RECOMMENDATIONS: 1. Continue empiric antimicrobials with plans to complete a 7-day treatment course. 2. Okay to discontinue hydrocortisone and [facility]. 3. Continue to wean supplemental oxygen to maintain saturations at or above 90%. 4. Continue bronchodilators. 5. Encourage incentive spirometer use and mobilize patient as tolerated. 6. Continue aggressive bronchopulmonary hygiene. 7. Obtain repeat plain film chest x-ray. IMPRESSIONS: 1. Septic shock with relative adrenal insufficiency secondary to right lower lobe community-acquired pneumonia The patient remains hemodynamically stable, off of vasopressor support. At this time, stress dose steroids will be discontinued and the patient will be placed back [facility]. Given his increased oxygen requirement overnight, will obtain repeat plain film chest x-ray. Antimicrobials have been transitioned to Levaquin to complete treatment course. Sputum culture is currently pending. Continue to wean supplemental oxygen to maintain saturations at or above 90%. Continue aggressive bronchopulmonary hygiene. 2. Acute hypoxemic respiratory failure secondary to community-acquired pneumonia Continue current supportive measures and wean supplemental oxygen as tolerated. Encourage incentive spirometer use and mobilize patient as tolerated. Continue bronchodilators as ordered. I would plan to complete a 7-day treatment course of antibiotics. 3. Chronic systolic heart failure/troponin elevation Likely secondary to demand ischemia in the setting of #1. Baseline cardiac medications can be restarted from my perspective. 4. Hypertension/hyperlipidemia/depression/GERD/hypothyroidism Complicates care, management, recovery and prognosis. Continue home medications as needed. This note was generated with [employer] dictation software. It may contain incorrect words, spelling, and punctuation that were not noted in checking the note before signing. Inpatient E&M: 78046 Subs Hosp L3
--- NOTE | 2019-10-28 07:43 | RAD_ITS ---
STUDY: X-RAY CHEST REASON FOR EXAM: Male, 68 years old. Worsening hypoxemia TECHNIQUE: Single AP portable view of the chest. COMPARISON: Comparison is made with prior study dated October 24, 2019. FINDINGS: EKG electrodes are seen. A left-sided internal jugular venous catheter is in situ and the tip is at the junction of the superior vena cava and right atrium. This is unchanged. Surgical clips are seen in the right cervical region with a stent suggestive of prior carotid surgery. Stable scarring in the medial aspect of the right lung apex. Persistent right lower lobe infiltrate although there has been improvement as compared to prior study. Improved aeration of the right upper lobe infiltrate as well. There is no demonstrated pleural abnormality. Sternal cerclage wires and vascular clips are present from a prior sternotomy and coronary artery bypass graft procedure (CABG). Normal mediastinum and becca. Normal visualized pulmonary arteries. There is atherosclerotic calcification of the aortic arch with tortuosity. There is a levoscoliosis of the thoracic spine. Normal visualized ribs, clavicles, and shoulders. There is no demonstrated abnormality of the visualized soft tissue structures of the upper abdomen. RAD/Chest 1 View (Portable) IMPRESSION: Improved aeration of the right upper and right lower lobe infiltrates. Electronically Signed: Mckay Blackwood, at 8:28 EDT , Service support ,
--- NOTE | 2019-10-28 08:55 | CPS ---
patient refuses bipap
[2019-10-28] MEDS: Aspirin E.C. 81 MG Tablet PO (09:33)
[2019-10-28] MEDS: guaiFENesin 1,200 MG Tablet 1200 MG PO ×2 (09:33→22:35)
[2019-10-28] MEDS: Multivitamins,Ther W-Minerals Tablet 1 TABLET PO (09:33)
[2019-10-28] MEDS: Enoxaparin 40 MG/0.4 ML Syringe SC (09:33)
[2019-10-28] MEDS: Famotidine 20 MG Tablet PO ×2 (09:33→22:35)
[2019-10-28] MEDS: Clopidogrel Bisulfate 75 MG Tablet PO (09:34)
[2019-10-28] MEDS: Sertraline 50 MG Tablet PO (09:34)
[2019-10-28] MEDS: levoFLOXacin IV 750 MG/150 ML BAG 100 MG IV (10:10)
[2019-10-28] MEDS: 0.9% Saline Lock 10 ML Syringe IV (10:18)
[2019-10-28] MEDS: 0.9% Normal Saline 1,000 ML 999 ML IV (10:18)
--- NOTE | 2019-10-28 10:38 | PCM.PN.HOSP ---
Patient Problems: Active and Suspected Problems (Last Updated 09/25/19 @ 14:00 by Jocy Nguyen) Acute respiratory failure with hypoxia (Acute) Right lower lobe pneumonia (Acute) Septic shock (Acute) Elevated troponin (Acute) Subjective: Patient seen and examined. Patient was noted to be requiring increasing amounts of oxygen overnight. He admits to a cough and thinks that the mucus is now loosening up and he is expectorating more. He denies any fever or chills, palpitations or dizziness, nausea vomiting or diarrhea. Review of signs otherwise negative. WBC is down to 13.4. Chemistry is unremarkable. Requiring 6 L of oxygen. He is also complaining of generalized aches and pains with taking atorvastatin. Later this morning, he was noted to have a drop in his blood pressure to 66/51. Vitals/I&O's: Vital Signs Temp Pulse Resp BP Pulse Ox 98.6 F 81 19 H 66/51 L 93 10/28/19 09:28 10/28/19 09:28 10/28/19 09:28 10/28/19 09:31 10/28/19 09:28 Oxygen Flow Rate (L/min) [ 2 AMBULATION with Oxygen] Oxygen Flow Rate (L/min) [ 0 AMBULATING on Room Air] Oxygen Flow Rate (L/min) [At 0 REST on Room Air] Oxygen Flow Rate (L/min) 6 Oxygen Delivery Method Nasal Cannula Weight: 204 lb 9.423 oz Body Mass Index (BMI) 29.5 Finger Stick Blood Glucose 109 Intake and Output for Last 24 Hours 10/26/19 10/27/19 10/28/19 23:59 23:59 23:59 Intake Total 1050 / 1050 862 / 862 30 / 30 Output Total 1550 / 1550 1600 / 1600 825 / 825 Balance -500 / -500 -738 / -738 -795 / -795 General: No apparent distress, alert, responsive HEENT: Atraumatic, PERRLA, EOMI, Normocephalic Oral: Dry Mucosa Neck: Supple, No JVD, Negative Carotid Bruits Lungs: diminished breath sounds bibasally, no wheezes or crackles. On 6L of oxygen. Cardiovascular: Regular rate, Regular Rhythm, Normal S1, Normal S2, No murmurs Abdomen: Bowel Sounds Present, Soft, Non Tender, no organomegaly Extremities: No clubbing, No cyanosis, No edema, Capillary Refill Less than 3 Seconds Skin: No rashes, No breakdown Musculoskeletal: No Tenderness to Palpation of Joints or Extremities Lymphatic: No Cervical, Supraclavicular, or Inguinal Adenopathy Neurological: Cranial nerves II-XII grossly intact, Power 5/5 in all extremities. normal tone Psych/Mental Status: - -normal affect Microbiology Past 72 Hours 10/24/19 11:00 Urine Catheter - Acuna Urine Culture - Final Culture exhibits no growth. Laboratory Results 10/28/19 05:14: WBC 13.4 H, RBC 3.95 L, Hgb 13.2, Hct 39.8 L, MCV 100.8 H, MCH 33.4 H, MCHC 33.2, RDW Std Deviation 48.4 H, RDW Coeff of Bharath 12.9, Plt Count 208, MPV 9.9, Immature Gran % (Auto) 0.700, Neut % (Auto) 82.3 H, Lymph % (Auto) 7.1 L, [place] % (Auto) 8.9, Eos % (Auto) 0.7, Baso % (Auto) 0.3, Absolute Neuts (auto) 11.0 H, Absolute Lymphs (auto) 0.95, Nucleated RBC % 0 10/28/19 05:14: Sodium 140, Potassium 3.6, Chloride 105, Carbon Dioxide 25.0, Anion Gap 10, BUN 25 H, Creatinine 1.07, Estim Creat Clear Calc 74.54, Est GFR (MDRD) Af Amer 89, Est GFR (MDRD) Non-Af 73, BUN/Creatinine Ratio 23.4 H, Glucose 88, Calcium 9.3 Diagnostic Data Chest X-Ray 10/28/19 07:43 IMPRESSION: Improved aeration of the right upper and right lower lobe infiltrates. Electronically Signed: Mckay Blackwood, at 8:28 EDT , Service support , Current Medications Acetaminophen (Tylenol) 650 mg PO Q6H PRN PRN PRN Reason: Pain Score 1-10/Temp > 100.7 F Last Admin: 10/28/19 05:28 Dose: 650 mg Documented by: Albuterol Sulfate (Ventolin Aerosols) 2.5 mg INHALATION Q4H PRN PRN Reason: SOB &/OR WHEEZING Last Admin: 10/28/19 07:39 Dose: 2.5 mg Documented by: Aspirin (Ecotrin) 81 mg PO DAILY@0800 [facility] Last Admin: 10/28/19 09:33 Dose: 81 mg Documented by: Atorvastatin Calcium (Lipitor) 20 mg PO QHS [facility] Last Admin: 10/27/19 21:32 Dose: 20 mg Documented by: Carvedilol (Coreg) 3.125 mg PO BID [facility] Last Admin: 10/28/19 10:00 Dose: Not Given Documented by: Clopidogrel Bisulfate (Plavix) 75 mg PO DAILY [facility] Last Admin: 10/28/19 09:34 Dose: 75 mg Documented by: Enoxaparin Sodium (Lovenox) 40 mg SC DAILY [facility] Last Admin: 10/28/19 09:33 Dose: 40 mg Documented by: Famotidine (Pepcid) 20 mg PO BID [facility] Last Admin: 10/28/19 09:33 Dose: 20 mg Documented by: Fludrocortisone Acetate (Florinef) 0.1 mg PO TID [facility] Glucagon () 1 mg IM .X1 PRN PRN Reason: Hypoglycemia Guaifenesin (Mucinex) 1,200 mg PO BID [facility] Last Admin: 10/28/19 09:33 Dose: 1,200 mg Documented by: Hydrocortisone Sodium Succinate (Solu-Cortef) 50 mg IV X1 ONE Stop: 10/28/19 10:38 Sodium Chloride () 250 mls @ 15 mls/hr IV .[id number] PRN PRN Reason: Saline Flush Sodium Chloride () 250 mls @ 15 mls/hr IV .[id number] PRN PRN Reason: Additional IVPB Infusion Dextrose (Dextrose 10%-Water) 250 mls @ 999 mls/hr IV .Q16M PRN; Protocol PRN Reason: HYPOGLYCEMIA Levofloxacin (Levaquin Iv) 750 mg in 150 mls @ 100 mls/hr IV Q24 [facility] Last Admin: 10/28/19 10:10 Dose: 100 mls/hr Documented by: Sodium Chloride () 1,000 mls @ 999 mls/hr IV .Q1H1M ONE Stop: 10/28/19 10:59 Last Admin: 10/28/19 10:18 Dose: 999 mls/hr Documented by: Levothyroxine Sodium (Synthroid) 50 mcg PO SuSa@0600 [facility] Last Admin: 10/25/19 05:57 Dose: 50 mcg Documented by: Levothyroxine Sodium (Synthroid) 100 mcg PO MoTuWeThFr@0600 [facility] Last Admin: 10/28/19 05:28 Dose: 100 mcg Documented by: Losartan Potassium (Cozaar) 25 mg PO DAILY [facility] Last Admin: 10/28/19 10:00 Dose: Not Given Documented by: Multivitamins/Minerals (Multivitamin With Minerals (Bkc)) 1 tablet PO DAILY@0800 [facility] Last Admin: 10/28/19 09:33 Dose: 1 tablet Documented by: Ondansetron HCl (Zofran) 4 mg IV Q8H PRN PRN PRN Reason: NAUSEA/VOMITING Potassium Chloride (K-Dur) 20 meq PO BID [facility] Last Admin: 10/28/19 09:33 Dose: 20 meq Documented by: Sertraline HCl (Zoloft) 50 mg PO BID [facility] Last Admin: 10/28/19 09:34 Dose: 50 mg Documented by: Sodium Chloride () 10 - 40 ml IV UD PRN PRN Reason: SALINE FLUSH Last Admin: 10/28/19 10:18 Dose: 10 ml Documented by: STROKE Vital Signs/Narrative: Vital Signs Temp Pulse Resp BP BP Pulse Ox 10/28/19 09:31 66/51 L 10/28/19 09:28 98.6 F 81 19 H 77/58 L 93 10/28/19 08:38 88 10/28/19 07:50 91 10/28/19 07:20 81 19 H 10/28/19 06:48 80 10/28/19 06:47 97.5 F L 82 16 129/89 H 92 Medical Necessity - Tobacco Use Smoking Status: Never smoker Assessment/Plan All Active Problems (Last Updated 09/25/19 @ 14:00 by Jocy Nguyen) Acute respiratory failure with hypoxia (Acute) Right lower lobe pneumonia (Acute) Septic shock (Acute) Elevated troponin (Acute) H/O coronary artery bypass surgery (Resolved 02/26/13) History of non-ST elevation myocardial infarction (NSTEMI) (Resolved 06/17/19) CVA (cerebral vascular accident) (Resolved 06/30/19) Acute exacerbation of CHF (congestive heart failure) (Resolved) Dyspnea on exertion (Resolved) Vertigo (Resolved) 68 y/o admitted with a complaint of shortness of breath 1. Septic shock due to community acquired pneumonia urine for strep and Legionella, and respiratory panel were negative wbc down to 13.4 now on levaquin; to complete 7 days of antibiotics 2D echo; EF of 60%, with normal LV size and moderate concentric LV hypertrophy with no regional wall motion abnormalities. critical care on board blood cultures pending. hydrocortisone tapered off today. Patient;s BP however dropped to 66/51/ Will give a dose of IV normal saline 1L and give IV hydrcortisone 50mg x 1. 2. Acute hypoxic respiratory failure due to community acquired pneumonia requiring up to 6L of oxygen this morning CXR today showed improved aeration of the right upper and right lower lobe infiltrates critical care on board continue bronchodilators; titrate oxygen to maintain sats >90% as under 1.on 2L of oxygen. Dropped to 87% on room air with ambulation continue breathing treatments with hermes critical care on board; titrate oxygen to maintain sats>90% will need 2L of oxygen at home as he qualified for home oxygen. 3. Nonstemi Initial troponin was 0.832 but trended up to a peak of 2.5 Cardiology on board; think it is likely type II CO due to demand ischemia. Advocated conservative management for now in light of patient's septic shock and community-acquired pneumonia as well as acute hypoxic respiratory failure. dont recommend repeat catheterisation as he had cath on 06/18/2019 2D echo as under 1 carvedilol and cozaar on hold today o/a of hypotension. 4. Acute metabolic encephalopathy due to community acquired pneumonia and septic shock management as under 1 and 2. resolved. 5. History of adrenal insufficiency and orthostatic hypotension hydrocrotisone weaned off today; patient became hypotensive today, so patient given a dose of IV hydrocortisone 50mg x 1 will resume fludrocortisone 6. Hypertension;carvedilol resumed. Now on losartan. 7. hyperlipidemia: on statin 8. Hypothyroidism: on synthroid 9. HFrEF: not in exacerbation now. lasix on hold. 10. CAD s/p CABG: on aspirin and statin. carvedilol on hold DVT prophylaxis; lovenox GI prophylaxis: IV famotidine Code status: full code Inpatient E&M: 59698 Subs Hosp L3
[2019-10-28] MEDS: Fludrocortisone Acetate 0.1 MG Tablet PO ×2 (14:55→22:35)
--- NOTE | 2019-10-28 15:00 | CASEMGMT ---
This RN CM received [facility] call back. Call to Lashay and she is updated on pt's plan of care at this time, voices understanding. Lashay's contact info: [phone]. Douglas ALONZO CM
[2019-10-28] MEDS: Carvedilol 3.125 MG TABLET PO (22:35)
[2019-10-29] VITALS (14 sets, daily range): BP systolic 93–162; BP diastolic 60–108; PULSE 77–86; RESP 16–18; TEMP 36.2–36.6; O2SAT 90–96
[2019-10-29] MEDS: Levothyroxine 100 MCG Tablet PO (05:38)
[2019-10-29] MEDS: Fludrocortisone Acetate 0.1 MG Tablet PO ×3 (05:38→21:13)
--- NOTE | 2019-10-29 07:57 | CT_ITS ---
STUDY: CTA CHEST REASON FOR EXAM: Male, 68 years old. RESPIRATORY FAILURE RADIATION DOSAGE (If Supplied By Facility): CTDIvol = ( 13.85 ) mGy, DLP = ( 568.24 ) mGycm TECHNIQUE: The examination was performed with the intravenous administration of IV OPTIRAY 350. Post-processing of the angiographic images was performed, with multiplanar reformation and 3D reconstruction. Individualized dose optimization techniques were used for this CT. COMPARISON: Comparison is made with prior examination dated July 08, 2015. FINDINGS: Normal enhancement of the main pulmonary artery and right and left pulmonary arteries. Normal enhancement of the bilateral peripheral pulmonary arteries. There is no demonstrated pulmonary embolism. Normal thoracic aorta and visualized great vessels. There is no demonstrated aortic dissection. Sternal cerclage wires and vascular clips are present from a prior sternotomy and coronary artery bypass graft procedure (CABG). There are visualized mediastinal lymph nodes, which are within normal size limits, and with normal morphology. Normal hilar regions. Normal visualized trachea and bronchi. The lungs are well expanded. Presents of the scarring and bronchiectasis within the medial aspect of the right upper lobe. Patchy alveolar infiltrates in the right upper lobe with focal consolidation in the posterior aspect of the right upper lobe adjacent to the minor fissure. There is evidence of a consolidation in the right lower lobe with a small right pleural effusion. Minimal increased markings at the left lung base and lingular segment of left upper lobe suggestive of scarring. Normal chest wall structures. There are degenerative changes of thoracic spine. There is a 4.7 cm ventral hernia in the anterior abdominal wall containing nondilated small bowel loops. Prior subtotal gastrectomy. Status post cholecystectomy. CT/CTA Chest W/WO Contrast IMPRESSION: Consolidation in the right upper, right middle and right lower lobes. No evidence of pneumothorax. Electronically Signed: Mckay Blackwood, at 8:57 EDT , Service support ,
[2019-10-29] MEDS: Multivitamins,Ther W-Minerals Tablet 1 TABLET PO (09:10)
[2019-10-29] MEDS: Aspirin E.C. 81 MG Tablet PO (09:10)
[2019-10-29] MEDS: Carvedilol 3.125 MG TABLET PO (09:10)
[2019-10-29] MEDS: Famotidine 20 MG Tablet PO ×2 (09:10→21:12)
[2019-10-29] MEDS: Clopidogrel Bisulfate 75 MG Tablet PO (09:11)
[2019-10-29] MEDS: Sertraline 50 MG Tablet PO (09:11)
[2019-10-29] MEDS: Enoxaparin 40 MG/0.4 ML Syringe SC (09:11)
[2019-10-29] MEDS: guaiFENesin 1,200 MG Tablet 1200 MG PO ×2 (09:11→21:12)
[2019-10-29] MEDS: Losartan Potassium 25 MG Tablet PO (09:11)
[2019-10-29] MEDS: Acetaminophen 325 MG Tablet 650 MG PO ×2 (09:18→18:51)
[2019-10-29] MEDS: levoFLOXacin IV 750 MG/150 ML BAG 100 MG IV (09:18)
[2019-10-29] MEDS: 0.9% Saline Lock 10 ML Syringe IV (09:20)
--- NOTE | 2019-10-29 09:48 | PCM.PN.PUL ---
Patient Problems: Active and Suspected Problems (Last Updated 09/25/19 @ 14:00 by Jocy Nguyen) Acute respiratory failure with hypoxia (Acute) Right lower lobe pneumonia (Acute) Septic shock (Acute) Elevated troponin (Acute) Subjective: The patient was seen and examined at the bedside this morning. Events from the last 24 hours have been reviewed. The patient is currently afebrile, hemodynamically stable and maintaining appropriate oxygen saturations on 4 L/min via nasal cannula. Coughing persists. Objective: The patient's most recent lab work, culture data and imaging studies have all been personally reviewed. Infectious work-up has been negative to date. - Physical Exam Vitals/I&O's: Vital Signs Temp Pulse Resp BP Pulse Ox 97.4 F L 82 18 162/108 H 92 10/29/19 08:55 10/29/19 08:55 10/29/19 08:55 10/29/19 08:55 10/29/19 08:55 Oxygen Flow Rate (L/min) [ 2 AMBULATION with Oxygen] Oxygen Flow Rate (L/min) [ 0 AMBULATING on Room Air] Oxygen Flow Rate (L/min) [At 0 REST on Room Air] Oxygen Flow Rate (L/min) 4 Oxygen Delivery Method Room Air Weight: 201 lb 0.985 oz Body Mass Index (BMI) 29.5 Finger Stick Blood Glucose 109 Intake and Output for Last 24 Hours 10/27/19 10/28/19 10/29/19 23:59 23:59 23:59 Intake Total 862 / 862 1780 / 1930 200 / 200 Output Total 1600 / 1600 1750 / 2700 1525 / 1525 Balance -738 / -738 30 / -770 -1325 / -1325 General: Alert, No apparent distress HEENT: Atraumatic, Normocephalic Oral: No Gingival or Mucosal Lesions/ Ulcerations Neck: Supple, No Nodes, Trachea Midline Lungs: No rhonchi, No wheeze, No rales, Diminished Cardiovascular: Regular rate, Regular Rhythm, Normal S1, Normal S2 Abdomen: Bowel Sounds Present, Soft, Non Tender Extremities: No clubbing, No cyanosis, No edema Skin: No breakdown Musculoskeletal: No Tenderness to Palpation of Joints or Extremities Lymphatic: No Cervical, Supraclavicular, or Inguinal Adenopathy Neurological: Cranial nerves II-XII grossly intact, Neuro grossly intact Psych/Mental Status: Normal Affect, Appropriate Labs (Last 48 Hours) 10/28/19 10/28/19 05:14 05:14 WBC 13.4 H RBC 3.95 L Hgb 13.2 Hct 39.8 L MCV 100.8 H MCH 33.4 H MCHC 33.2 RDW Std Deviation 48.4 H RDW Coeff of Bharath 12.9 Plt Count 208 MPV 9.9 Immature Gran % (Auto) 0.700 Neut % (Auto) 82.3 H Lymph % (Auto) 7.1 L Gladwin % (Auto) 8.9 Eos % (Auto) 0.7 Baso % (Auto) 0.3 Absolute Neuts (auto) 11.0 H Absolute Lymphs (auto) 0.95 Nucleated RBC % 0 Sodium 140 Potassium 3.6 Chloride 105 Carbon Dioxide 25.0 Anion Gap 10 BUN 25 H Creatinine 1.07 Estim Creat Clear Calc 74.54 Est GFR (MDRD) Af Amer 89 Est GFR (MDRD) Non-Af 73 BUN/Creatinine Ratio 23.4 H Glucose 88 Calcium 9.3 Microbiology 10/24/19 08:40 Blood Culture (Wb) - Right Forearm Blood Culture - Final No growth in 5 days. 10/28/19 03:20 Sputum, Expectorated/Coughed Gram Stain - Final 10/24/19 11:00 Urine Catheter - Acuna Urine Culture - Final Culture exhibits no growth. Clinical Impression(s) from Imaging Studies Chest X-Ray 10/24/19 07:49 IMPRESSION: 1. Patchy infiltrate in right lower lobe likely due to pneumonia. 2. Mild infiltrate in right upper lobe. Electronically Signed: Mervin Addison MD at 8:38 EDT Tel , Service support , Chest X-Ray 10/24/19 11:20 IMPRESSION: 1. Left internal jugular central venous catheter in place. 2. Right lung infiltrates increased since the previous exam. Electronically Signed: Mervin Addison MD at 12:18 EDT Tel , Service support , Chest X-Ray 10/28/19 07:43 IMPRESSION: Improved aeration of the right upper and right lower lobe infiltrates. Electronically Signed: Mckay Blackwood, at 8:28 EDT , Service support , Chest CTA 10/29/19 07:57 IMPRESSION: Consolidation in the right upper, right middle and right lower lobes. No evidence of pneumothorax. Electronically Signed: Mckay Blackwood, at 8:57 EDT , Service support , Current Medications Acetaminophen (Tylenol) 650 mg PO Q6H PRN PRN PRN Reason: Pain Score 1-10/Temp > 100.7 F Last Admin: 10/29/19 09:18 Dose: 650 mg Documented by: Albuterol Sulfate (Ventolin Aerosols) 2.5 mg INHALATION Q4H PRN PRN Reason: SOB &/OR WHEEZING Last Admin: 10/28/19 07:39 Dose: 2.5 mg Documented by: Aspirin (Ecotrin) 81 mg PO DAILY@0800 [facility] Last Admin: 10/29/19 09:10 Dose: 81 mg Documented by: Atorvastatin Calcium (Lipitor) 20 mg PO QHS [facility] Last Admin: 10/28/19 22:34 Dose: Not Given Documented by: Carvedilol (Coreg) 3.125 mg PO BID [facility] Last Admin: 10/29/19 09:10 Dose: 3.125 mg Documented by: Clopidogrel Bisulfate (Plavix) 75 mg PO DAILY [facility] Last Admin: 10/29/19 09:11 Dose: 75 mg Documented by: Enoxaparin Sodium (Lovenox) 40 mg SC DAILY [facility] Last Admin: 10/29/19 09:11 Dose: 40 mg Documented by: Famotidine (Pepcid) 20 mg PO BID [facility] Last Admin: 10/29/19 09:10 Dose: 20 mg Documented by: Fludrocortisone Acetate (Florinef) 0.1 mg PO TID [facility] Last Admin: 10/29/19 05:38 Dose: 0.1 mg Documented by: Glucagon () 1 mg IM .X1 PRN PRN Reason: Hypoglycemia Guaifenesin (Mucinex) 1,200 mg PO BID [facility] Last Admin: 10/29/19 09:11 Dose: 1,200 mg Documented by: Sodium Chloride () 250 mls @ 15 mls/hr IV .[id number] PRN PRN Reason: Saline Flush Sodium Chloride () 250 mls @ 15 mls/hr IV .[id number] PRN PRN Reason: Additional IVPB Infusion Dextrose (Dextrose 10%-Water) 250 mls @ 999 mls/hr IV .Q16M PRN; Protocol PRN Reason: HYPOGLYCEMIA Levofloxacin (Levaquin Iv) 750 mg in 150 mls @ 100 mls/hr IV Q24 [facility] Last Admin: 10/29/19 09:18 Dose: 100 mls/hr Documented by: Levothyroxine Sodium (Synthroid) 50 mcg PO SuSa@0600 [facility] Last Admin: 10/25/19 05:57 Dose: 50 mcg Documented by: Levothyroxine Sodium (Synthroid) 100 mcg PO MoTuWeThFr@0600 [facility] Last Admin: 10/29/19 05:38 Dose: 100 mcg Documented by: Losartan Potassium (Cozaar) 25 mg PO DAILY [facility] Last Admin: 10/29/19 09:11 Dose: 25 mg Documented by: Multivitamins/Minerals (Multivitamin With Minerals (Bkc)) 1 tablet PO DAILY@0800 [facility] Last Admin: 10/29/19 09:10 Dose: 1 tablet Documented by: Ondansetron HCl (Zofran) 4 mg IV Q8H PRN PRN PRN Reason: NAUSEA/VOMITING Potassium Chloride (K-Dur) 20 meq PO BID [facility] Last Admin: 10/29/19 09:11 Dose: 20 meq Documented by: Sertraline HCl (Zoloft) 50 mg PO BID [facility] Last Admin: 10/29/19 09:11 Dose: 50 mg Documented by: Sodium Chloride () 10 - 40 ml IV UD PRN PRN Reason: SALINE FLUSH Last Admin: 10/29/19 09:20 Dose: 10 ml Documented by: Medical Necessity - Tobacco Use Smoking Status: Never smoker Assessment/Plan All Active Problems (Last Updated 09/25/19 @ 14:00 by Jocy Nguyen) Acute respiratory failure with hypoxia (Acute) Right lower lobe pneumonia (Acute) Septic shock (Acute) Elevated troponin (Acute) H/O coronary artery bypass surgery (Resolved 02/26/13) History of non-ST elevation myocardial infarction (NSTEMI) (Resolved 06/17/19) CVA (cerebral vascular accident) (Resolved 06/30/19) Acute exacerbation of CHF (congestive heart failure) (Resolved) Dyspnea on exertion (Resolved) Vertigo (Resolved) RECOMMENDATIONS: 1. Continue empiric antimicrobials with plans to complete a 7-day treatment course. 2. Continue Florinef per home regimen. 3. Continue to wean supplemental oxygen to maintain saturations at or above 90%. 4. Continue bronchodilators. 5. Encourage incentive spirometer use and mobilize patient as tolerated. 6. Continue aggressive bronchopulmonary hygiene. 7. Perform walking oximetry study prior to consideration for discharge home. IMPRESSIONS: 1. Septic shock with relative adrenal insufficiency secondary to right lower lobe community-acquired pneumonia The patient remains hemodynamically stable, off of vasopressor support. The patient has been weaned from stress dose steroids and will remain on Florinef per home regimen. Continue antimicrobials with plans to complete a full 7-day treatment course. Continue to wean supplemental oxygen to maintain saturations at or above 90%. Encourage incentive spirometer use and mobilize patient as tolerated. Continue aggressive bronchopulmonary hygiene. Perform walking oximetry study prior to consideration for discharge home. 2. Acute hypoxemic respiratory failure secondary to community-acquired pneumonia Continue current supportive measures and wean supplemental oxygen as tolerated. Encourage incentive spirometer use and mobilize patient as tolerated. Continue bronchodilators as ordered. I would plan to complete a 7-day treatment course of antibiotics. 3. Chronic systolic heart failure/troponin elevation Likely secondary to demand ischemia in the setting of #1. Baseline cardiac medications can be restarted from my perspective. 4. Hypertension/hyperlipidemia/depression/GERD/hypothyroidism Complicates care, management, recovery and prognosis. Continue home medications as needed. This note was generated with [employer] dictation software. It may contain incorrect words, spelling, and punctuation that were not noted in checking the note before signing. Inpatient E&M: 54362 Subs Hosp L2
--- NOTE | 2019-10-29 09:58 | CASEMGMT ---
Addendum entered by Frankie Blood 10/29/19 15:14: CLINTON GREY Note: Per PT- unable to work with patient today due to low BP requiring fluid boluses and bedrest. Will follow to see how pt does tomorrow and evaluate for HHC and O2 needs. Pt remains on 4L NC @ this time. Baljeet ELKINS Original Note: CLINTON GREY Note: per rounds, anticipate dc tomorrow. Pt continues on 4L NC, CT chest today. - Call to [facility] to verify script information. Script is for 2L NC continuous. Per [facility] rep, if pt is dc'd tomorrow, will not need new testing if is on 2L NC for dc, but will need Physician documentation (face to face) re: home oxygen faxed. - awaiting PT/OT to work with pt today to eval for need for HHC. Baljeet ELKINS.
--- NOTE | 2019-10-29 11:31 | NURSING ---
Left IJ removed tip intact. Pressure applied for 5 minutes. Vaseline guaze, with 2x2 and tegaderm applied over top. Instructed to lay flat for 30 minutes. Verbalizes understanding.
--- NOTE | 2019-10-29 11:33 | EKG12_ITS ---
Test Reason : CP Blood Pressure : / mmHG Vent. Rate : 081 BPM Atrial Rate : 081 BPM P-R Int : 150 ms QRS Dur : 102 ms QT Int : 398 ms P-R-T Axes : 035 082 042 degrees QTc Int : 462 ms Normal sinus rhythm Nonspecific T wave abnormality Prolonged QT Abnormal ECG When compared with ECG of 26-OCT-2019 00:40, No significant change was found Confirmed by LISSETTE HANNA, DELFINA ([id number]), design editor MARCO AMBROSIO ([id number]) on 11/03/2019 9:31:54 AM Referred By: EMMANUEL Confirmed By:DELFINA MCLAUGHLIN MD
--- NOTE | 2019-10-29 13:41 | PCM.PN.HOSP ---
Patient Problems: Active and Suspected Problems (Last Updated 09/25/19 @ 14:00 by Jocy Nguyen) Acute respiratory failure with hypoxia (Acute) Right lower lobe pneumonia (Acute) Septic shock (Acute) Elevated troponin (Acute) Subjective: Patient seen and examined. Patient remains 4 L of oxygen and remains short of breath. He denies any chest pain or palpitations, dizziness, nausea vomiting. Review of symptoms otherwise negative. Patient's blood pressure also dropped eventually to the 70s systolic this morning and he came up with administration of IV fluid normal saline 500 cc bolus. Vitals/I&O's: Vital Signs Temp Pulse Resp BP Pulse Ox 97.4 F L 80 18 151/94 H 94 10/29/19 11:09 10/29/19 11:09 10/29/19 11:09 10/29/19 11:09 10/29/19 11:09 Oxygen Flow Rate (L/min) [ 2 AMBULATION with Oxygen] Oxygen Flow Rate (L/min) [ 0 AMBULATING on Room Air] Oxygen Flow Rate (L/min) [At 0 REST on Room Air] Oxygen Flow Rate (L/min) 4 Oxygen Delivery Method Nasal Cannula Weight: 201 lb 0.985 oz Body Mass Index (BMI) 29.5 Finger Stick Blood Glucose 109 Intake and Output for Last 24 Hours 10/27/19 10/28/19 10/29/19 23:59 23:59 23:59 Intake Total 862 / 862 1780 / 1930 1090 / 1090 Output Total 1600 / 1600 1750 / 2700 2225 / 2225 Balance -738 / -738 30 / -770 -1135 / -1135 General: No apparent distress, alert, responsive HEENT: Atraumatic, PERRLA, EOMI, Normocephalic Oral: Dry Mucosa Neck: Supple, No JVD, Negative Carotid Bruits Lungs: diminished breath sounds bibasally, no wheezes or crackles. On 4L of oxygen. Cardiovascular: Regular rate, Regular Rhythm, Normal S1, Normal S2, No murmurs Abdomen: Bowel Sounds Present, Soft, Non Tender, no organomegaly Extremities: No clubbing, No cyanosis, No edema, Capillary Refill Less than 3 Seconds Skin: No rashes, No breakdown Musculoskeletal: No Tenderness to Palpation of Joints or Extremities Lymphatic: No Cervical, Supraclavicular, or Inguinal Adenopathy Neurological: Cranial nerves II-XII grossly intact, Power 5/5 in all extremities. normal tone Psych/Mental Status: - -normal affect Microbiology Past 72 Hours 10/24/19 11:40 Blood Culture (Wb) #2 - Other Blood Culture - Final No growth in 5 days. 10/28/19 03:20 Sputum, Expectorated/Coughed Gram Stain - Final 10/28/19 03:20 Sputum, Expectorated/Coughed Respiratory Culture - Preliminary Presumptive C albicans 10/24/19 08:40 Blood Culture (Wb) - Right Forearm Blood Culture - Final No growth in 5 days. 10/24/19 11:00 Urine Catheter - Acuna Urine Culture - Final Culture exhibits no growth. Current Medications Acetaminophen (Tylenol) 650 mg PO Q6H PRN PRN PRN Reason: Pain Score 1-10/Temp > 100.7 F Last Admin: 10/29/19 09:18 Dose: 650 mg Documented by: Albuterol Sulfate (Ventolin Aerosols) 2.5 mg INHALATION Q4H PRN PRN Reason: SOB &/OR WHEEZING Last Admin: 10/28/19 07:39 Dose: 2.5 mg Documented by: Aspirin (Ecotrin) 81 mg PO DAILY@0800 [facility] Last Admin: 10/29/19 09:10 Dose: 81 mg Documented by: Atorvastatin Calcium (Lipitor) 20 mg PO QHS [facility] Last Admin: 10/28/19 22:34 Dose: Not Given Documented by: Carvedilol (Coreg) 3.125 mg PO BID [facility] Last Admin: 10/29/19 09:10 Dose: 3.125 mg Documented by: Clopidogrel Bisulfate (Plavix) 75 mg PO DAILY [facility] Last Admin: 10/29/19 09:11 Dose: 75 mg Documented by: Enoxaparin Sodium (Lovenox) 40 mg SC DAILY [facility] Last Admin: 10/29/19 09:11 Dose: 40 mg Documented by: Famotidine (Pepcid) 20 mg PO BID [facility] Last Admin: 10/29/19 09:10 Dose: 20 mg Documented by: Fludrocortisone Acetate (Florinef) 0.1 mg PO TID [facility] Last Admin: 10/29/19 05:38 Dose: 0.1 mg Documented by: Glucagon () 1 mg IM .X1 PRN PRN Reason: Hypoglycemia Guaifenesin (Mucinex) 1,200 mg PO BID [facility] Last Admin: 10/29/19 09:11 Dose: 1,200 mg Documented by: Sodium Chloride () 250 mls @ 15 mls/hr IV .[id number] PRN PRN Reason: Saline Flush Sodium Chloride () 250 mls @ 15 mls/hr IV .[id number] PRN PRN Reason: Additional IVPB Infusion Dextrose (Dextrose 10%-Water) 250 mls @ 999 mls/hr IV .Q16M PRN; Protocol PRN Reason: HYPOGLYCEMIA Levofloxacin (Levaquin Iv) 750 mg in 150 mls @ 100 mls/hr IV Q24 [facility] Last Infusion: 10/29/19 11:31 Dose: Infused Documented by: Levothyroxine Sodium (Synthroid) 50 mcg PO SuSa@0600 [facility] Last Admin: 10/25/19 05:57 Dose: 50 mcg Documented by: Levothyroxine Sodium (Synthroid) 100 mcg PO MoTuWeThFr@0600 [facility] Last Admin: 10/29/19 05:38 Dose: 100 mcg Documented by: Losartan Potassium (Cozaar) 25 mg PO DAILY [facility] Last Admin: 10/29/19 09:11 Dose: 25 mg Documented by: Multivitamins/Minerals (Multivitamin With Minerals (Bkc)) 1 tablet PO DAILY@0800 [facility] Last Admin: 10/29/19 09:10 Dose: 1 tablet Documented by: Ondansetron HCl (Zofran) 4 mg IV Q8H PRN PRN PRN Reason: NAUSEA/VOMITING Potassium Chloride (K-Dur) 20 meq PO BID [facility] Last Admin: 10/29/19 09:11 Dose: 20 meq Documented by: Sertraline HCl (Zoloft) 50 mg PO BID [facility] Last Admin: 10/29/19 09:11 Dose: 50 mg Documented by: Sodium Chloride () 10 - 40 ml IV UD PRN PRN Reason: SALINE FLUSH Last Admin: 10/29/19 09:20 Dose: 10 ml Documented by: STROKE Vital Signs/Narrative: Vital Signs Temp Pulse Resp BP Pulse Ox 10/29/19 11:09 97.4 F L 80 18 151/94 H 94 10/29/19 10:24 97.4 F L 81 18 93/60 93 Medical Necessity - Tobacco Use Smoking Status: Never smoker Assessment/Plan All Active Problems (Last Updated 09/25/19 @ 14:00 by Jocy Nguyen) Acute respiratory failure with hypoxia (Acute) Right lower lobe pneumonia (Acute) Septic shock (Acute) Elevated troponin (Acute) H/O coronary artery bypass surgery (Resolved 02/26/13) History of non-ST elevation myocardial infarction (NSTEMI) (Resolved 06/17/19) CVA (cerebral vascular accident) (Resolved 06/30/19) Acute exacerbation of CHF (congestive heart failure) (Resolved) Dyspnea on exertion (Resolved) Vertigo (Resolved) 68 y/o admitted with a complaint of shortness of breath 1. Septic shock due to community acquired pneumonia urine for strep and Legionella, and respiratory panel were negative now on levaquin; to complete 7 days of antibiotics 2D echo; EF of 60%, with normal LV size and moderate concentric LV hypertrophy with no regional wall motion abnormalities. critical care on board blood cultures pending. hydrocortisone tapered off today. Patient's blood pressure again dropped today and had to be given bolus of normal saline. Blood pressure stabilized since. 2. Acute hypoxic respiratory failure due to community acquired pneumonia on 4L of oxygen this morning, and unable to be weaned off oxygen CTA of chest done today showed no PE, but showed consolidation in right upper, right middle and right lower lobes critical care on board continue bronchodilators; titrate oxygen to maintain sats >90% 3. Nonstemi Initial troponin was 0.832 but trended up to a peak of 2.5 Cardiology on board; think it is likely type II NV due to demand ischemia. Advocated conservative management for now in light of patient's septic shock and community-acquired pneumonia as well as acute hypoxic respiratory failure. dont recommend repeat catheterisation as he had cath on 06/18/2019 2D echo as under 1 carvedilol and cozarr resumed. 4. Acute metabolic encephalopathy due to community acquired pneumonia and septic shock management as under 1 and 2. resolved. 5. History of adrenal insufficiency and orthostatic hypotension patient became hypotensive again today, and required normal saline bolus. on fludrocortisone 0.1mg tid 6. Hypertension; on carvedilol and losartan 7. hyperlipidemia: on statin 8. Hypothyroidism: on synthroid 9. HFrEF: not in exacerbation now. lasix on hold. on carvedilol and losartan 10. CAD s/p CABG: on aspirin and statin. carvedilol on hold DVT prophylaxis; lovenox GI prophylaxis: IV famotidine Code status: full code Inpatient E&M: 63178 Subs Hosp L2
[2019-10-30] VITALS (18 sets, daily range): BP systolic 68–144; BP diastolic 50–93; PULSE 79–92; RESP 15–20; TEMP 36.4–37.1; O2SAT 86–96
[2019-10-30] MEDS: Levothyroxine 100 MCG Tablet PO (06:02)
[2019-10-30] MEDS: Fludrocortisone Acetate 0.1 MG Tablet PO ×3 (06:02→22:38)
[2019-10-30 06:03] LABS: Absolute Lymphocyte Count 0.93 X10^3/uL (0.83-4.51); Absolute Neutrophil Count 8.9 X10^3/uL (2.0-7.7); Basophil# 0.04 X10^3/uL; Basophil% 0.4 % (0-1); Eosinophil# 0.14 X10^3/uL; Eosinophils% 1.2 % (0-5); Hematocrit 41.6 % (40-54); Hemoglobin 13.7 g/dL (13.0-16.5); Lymphocyte # 0.93 X10^3/ul (4.0); Lymphocyte % 8.2 % (19-41); Mean Corp Hgb Conc 32.9 g/dL (32-36); Mean Corpuscular Hgb 32.5 pg (27.0-32.0); Mean Corpuscular Volume 98.8 fL (80-94); Monocyte% 9.7 % (0-10); NRBC Flagged by Analyzer 0 % (0-5); Neutrophil # 8.87 X10^3/uL (2.7-7.7); Neutrophil % 78.2 % (47-70); Platelet Count 214 K/mm3 (150-450); RBC Distribution Width CV 12.9 % (11.6-14.6); RBC Distribution Width SD 46.1 fl (35.1-43.9); Red Blood Count 4.21 M/mm3 (4.6-6.2); White Blood Count 11.3 K/mm3 (4.4-11.0)
[2019-10-30] MEDS: Acetaminophen 325 MG Tablet 650 MG PO ×2 (06:33→15:29)
[2019-10-30 06:34] LABS: Anion Gap 7 (5-15); BUN 21 mg/dL (7-18); BUN/Creat Ratio 18.8 RATIO (10-20); Calcium,Total 9.7 mg/dL (8.5-10.1); Chloride 102 mmol/L (98-107); Creatinine, Serum 1.12 mg/dL (0.70-1.30); EST Glomerular Filtration Rate 70 mL/min (>60); Est Glom Filt Rate - Afr Amer 84 mL/min (>60); Estimated Creatinine Clearance 71.21 ml/min; Glucose 90 mg/dL (74-106); Sodium Level 137 mmol/L (136-145)
--- NOTE | 2019-10-30 09:56 | CASEMGMT ---
Addendum entered by Frankie Blood 10/30/19 12:40: Home oxygen testing completed. Pt is requiring 6L NC for ambulation to keep Pox @ 92%. Dr. Andrade notified via [employer]. Oly SKELTON RN ACM Original Note: CLINTON GREY Note: Intro role of CM to patient in room. Updated that oxygen testing would be repeated today. Pt is still agreeable to [facility] for oxygen and is declining home health after discussing with CLINTON GREY. If pt requires more than 2L continuous for home O2, new script will need to be faxed to [facility] along with Face to Face for home oxygen documentation. Oly SKELTON RN ACM
[2019-10-30] MEDS: Aspirin E.C. 81 MG Tablet PO (10:07)
[2019-10-30] MEDS: Multivitamins,Ther W-Minerals Tablet 1 TABLET PO (10:08)
[2019-10-30] MEDS: guaiFENesin 1,200 MG Tablet 1200 MG PO ×2 (10:08→22:39)
[2019-10-30] MEDS: Sertraline 50 MG Tablet PO ×2 (10:09→22:40)
[2019-10-30] MEDS: Famotidine 20 MG Tablet PO ×2 (10:09→22:40)
[2019-10-30] MEDS: Clopidogrel Bisulfate 75 MG Tablet PO (10:09)
[2019-10-30] MEDS: Enoxaparin 40 MG/0.4 ML Syringe SC (10:09)
--- NOTE | 2019-10-30 10:26 | NURSING ---
DR BENITEZ NOTIFIED OF PTS BP THIS AM - NEW ORDERS RECEIVED.
[2019-10-30] MEDS: 0.9% Saline Lock 10 ML Syringe IV ×2 (10:41→15:31)
[2019-10-30] MEDS: levoFLOXacin IV 750 MG/150 ML BAG 100 MG IV (11:48)
--- NOTE | 2019-10-30 13:17 | PCM.PN.PUL ---
Patient Problems: Active and Suspected Problems (Last Updated 09/25/19 @ 14:00 by Jocy Nguyen) Acute respiratory failure with hypoxia (Acute) Right lower lobe pneumonia (Acute) Septic shock (Acute) Elevated troponin (Acute) Subjective: The patient was seen and examined at the bedside this morning. Events from the last 24 hours have been reviewed. The patient is currently afebrile, hemodynamically stable and maintaining appropriate oxygen saturations on 2 L/min via nasal cannula. The patient appears to have a resting oxygen requirement of 2 L/min, but did readily desaturate with exertion, requiring 6 L/min of supplemental oxygen. He is currently resting comfortably in bed. He denies the presence of dysphasia or coughing with ingestion of liquids or solid food. Nevertheless, the patient did have evidence of penetration and aspiration with ingestion of thin liquids on swallow evaluation from 2017. Objective: The patient's most recent lab work, culture data and imaging studies have all been personally reviewed. - Physical Exam Vitals/I&O's: Vital Signs Temp Pulse Resp BP Pulse Ox 97.8 F 82 20 H 115/93 H 86 10/30/19 11:46 10/30/19 11:46 10/30/19 11:46 10/30/19 12:07 10/30/19 12:06 Oxygen Flow Rate (L/min) [ 6 AMBULATION with Oxygen] Oxygen Flow Rate (L/min) [ 0 AMBULATING on Room Air] Oxygen Flow Rate (L/min) [At 0 REST on Room Air] Oxygen Flow Rate (L/min) 2 Oxygen Delivery Method Nasal Cannula Weight: 200 lb 6.403 oz Body Mass Index (BMI) 29.5 Finger Stick Blood Glucose 109 Intake and Output for Last 24 Hours 10/28/19 10/29/19 10/30/19 23:59 23:59 23:59 Intake Total 1780 / 1930 1630 / 1630 575 / 575 Output Total 1750 / 2700 3125 / 3125 675 / 675 Balance 30 / -770 -1495 / -1495 -100 / -100 General: Alert, Cooperative, No apparent distress, - - Preparing to eat lunch HEENT: Atraumatic, Normocephalic Oral: No Gingival or Mucosal Lesions/ Ulcerations Neck: Supple, No Nodes, Trachea Midline Lungs: No rhonchi, No wheeze, No rales, Diminished Cardiovascular: Regular rate, Regular Rhythm, Normal S1, Normal S2, No murmurs Abdomen: Bowel Sounds Present, Soft, Non Tender Extremities: No clubbing, No cyanosis, No edema Skin: No breakdown Musculoskeletal: No Tenderness to Palpation of Joints or Extremities Lymphatic: No Cervical, Supraclavicular, or Inguinal Adenopathy Neurological: Cranial nerves II-XII grossly intact, Neuro grossly intact Psych/Mental Status: Normal Affect, Appropriate Labs (Last 48 Hours) 10/30/19 10/30/19 05:25 05:25 WBC 11.3 H RBC 4.21 L Hgb 13.7 Hct 41.6 MCV 98.8 H MCH 32.5 H MCHC 32.9 RDW Std Deviation 46.1 H RDW Coeff of Bharath 12.9 Plt Count 214 MPV 10.0 Immature Gran % (Auto) 2.300 H Neut % (Auto) 78.2 H Lymph % (Auto) 8.2 L Wilbarger % (Auto) 9.7 Eos % (Auto) 1.2 Baso % (Auto) 0.4 Absolute Neuts (auto) 8.9 H Absolute Lymphs (auto) 0.93 Nucleated RBC % 0 Sodium 137 Potassium 4.0 Chloride 102 Carbon Dioxide 28.0 Anion Gap 7 BUN 21 H Creatinine 1.12 Estim Creat Clear Calc 71.21 Est GFR (MDRD) Af Amer 84 Est GFR (MDRD) Non-Af 70 BUN/Creatinine Ratio 18.8 Glucose 90 Calcium 9.7 Microbiology 10/28/19 03:20 Sputum, Expectorated/Coughed Gram Stain - Final 10/28/19 03:20 Sputum, Expectorated/Coughed Respiratory Culture - Final Presumptive C albicans 10/24/19 11:40 Blood Culture (Wb) #2 - Other Blood Culture - Final No growth in 5 days. 10/24/19 08:40 Blood Culture (Wb) - Right Forearm Blood Culture - Final No growth in 5 days. Clinical Impression(s) from Imaging Studies Chest X-Ray 10/24/19 07:49 IMPRESSION: 1. Patchy infiltrate in right lower lobe likely due to pneumonia. 2. Mild infiltrate in right upper lobe. Electronically Signed: Mervin Addison MD at 8:38 EDT Tel , Service support , Chest X-Ray 10/24/19 11:20 IMPRESSION: 1. Left internal jugular central venous catheter in place. 2. Right lung infiltrates increased since the previous exam. Electronically Signed: Mervin Addison MD at 12:18 EDT Tel , Service support , Chest X-Ray 10/28/19 07:43 IMPRESSION: Improved aeration of the right upper and right lower lobe infiltrates. Electronically Signed: Mckay Blackwood, at 8:28 EDT , Service support , Chest CTA 10/29/19 07:57 IMPRESSION: Consolidation in the right upper, right middle and right lower lobes. No evidence of pneumothorax. Electronically Signed: Mckay Blackwood, at 8:57 EDT , Service support , Current Medications Acetaminophen (Tylenol) 650 mg PO Q6H PRN PRN PRN Reason: Pain Score 1-10/Temp > 100.7 F Last Admin: 10/30/19 06:33 Dose: 650 mg Documented by: Albuterol Sulfate (Ventolin Aerosols) 2.5 mg INHALATION Q4H PRN PRN Reason: SOB &/OR WHEEZING Last Admin: 10/28/19 07:39 Dose: 2.5 mg Documented by: Aspirin (Ecotrin) 81 mg PO DAILY@0800 [facility] Last Admin: 10/30/19 10:07 Dose: 81 mg Documented by: Atorvastatin Calcium (Lipitor) 20 mg PO QHS [facility] Last Admin: 10/29/19 21:13 Dose: Not Given Documented by: Carvedilol (Coreg) 3.125 mg PO BID [facility] Clopidogrel Bisulfate (Plavix) 75 mg PO DAILY [facility] Last Admin: 10/30/19 10:09 Dose: 75 mg Documented by: Enoxaparin Sodium (Lovenox) 40 mg SC DAILY [facility] Last Admin: 10/30/19 10:09 Dose: 40 mg Documented by: Famotidine (Pepcid) 20 mg PO BID [facility] Last Admin: 10/30/19 10:09 Dose: 20 mg Documented by: Fludrocortisone Acetate (Florinef) 0.2 mg PO DAILY@0600 [facility] Fludrocortisone Acetate (Florinef) 0.1 mg PO BID@1400,2200 [facility] Glucagon () 1 mg IM .X1 PRN PRN Reason: Hypoglycemia Guaifenesin (Mucinex) 1,200 mg PO BID [facility] Last Admin: 10/30/19 10:08 Dose: 1,200 mg Documented by: Sodium Chloride () 250 mls @ 15 mls/hr IV .[id number] PRN PRN Reason: Saline Flush Sodium Chloride () 250 mls @ 15 mls/hr IV .[id number] PRN PRN Reason: Additional IVPB Infusion Dextrose (Dextrose 10%-Water) 250 mls @ 999 mls/hr IV .Q16M PRN; Protocol PRN Reason: HYPOGLYCEMIA Levofloxacin (Levaquin Iv) 750 mg in 150 mls @ 100 mls/hr IV Q24 [facility] Last Admin: 10/30/19 11:48 Dose: 100 mls/hr Documented by: Levothyroxine Sodium (Synthroid) 50 mcg PO SuSa@0600 [facility] Last Admin: 10/25/19 05:57 Dose: 50 mcg Documented by: Levothyroxine Sodium (Synthroid) 100 mcg PO MoTuWeThFr@0600 [facility] Last Admin: 10/30/19 06:02 Dose: 100 mcg Documented by: Multivitamins/Minerals (Multivitamin With Minerals (Bkc)) 1 tablet PO DAILY@0800 [facility] Last Admin: 10/30/19 10:08 Dose: 1 tablet Documented by: Ondansetron HCl (Zofran) 4 mg IV Q8H PRN PRN PRN Reason: NAUSEA/VOMITING Potassium Chloride (K-Dur) 20 meq PO BID [facility] Last Admin: 10/30/19 10:08 Dose: 20 meq Documented by: Sertraline HCl (Zoloft) 50 mg PO BID [facility] Last Admin: 10/30/19 10:09 Dose: 50 mg Documented by: Sodium Chloride () 10 - 40 ml IV UD PRN PRN Reason: SALINE FLUSH Last Admin: 10/30/19 10:41 Dose: 10 ml Documented by: Medical Necessity - Tobacco Use Smoking Status: Never smoker Assessment/Plan All Active Problems (Last Updated 09/25/19 @ 14:00 by Jocy Nguyen) Acute respiratory failure with hypoxia (Acute) Right lower lobe pneumonia (Acute) Septic shock (Acute) Elevated troponin (Acute) H/O coronary artery bypass surgery (Resolved 02/26/13) History of non-ST elevation myocardial infarction (NSTEMI) (Resolved 06/17/19) CVA (cerebral vascular accident) (Resolved 06/30/19) Acute exacerbation of CHF (congestive heart failure) (Resolved) Dyspnea on exertion (Resolved) Vertigo (Resolved) RECOMMENDATIONS: 1. Continue empiric antimicrobials with plans to complete a 7-day treatment course. 2. Continue Florinef. 3. Continue to wean supplemental oxygen to maintain saturations at or above 90%. 4. Continue bronchodilators. 5. Encourage incentive spirometer use and mobilize patient as tolerated. 6. Continue aggressive bronchopulmonary hygiene. 7. Given the patient's significant exertional oxygen requirement, will ask speech therapy to reevaluate for possible recurrent aspiration IMPRESSIONS: 1. Septic shock with relative adrenal insufficiency secondary to right lower lobe community-acquired pneumonia The patient remains hemodynamically stable, off of vasopressor support. The patient has been weaned from stress dose steroids and will remain on Florinef per home regimen. Continue antimicrobials with plans to complete a full 7-day treatment course. Continue to wean supplemental oxygen to maintain saturations at or above 90%. Encourage incentive spirometer use and mobilize patient as tolerated. Continue aggressive bronchopulmonary hygiene. Perform walking oximetry study prior to consideration for discharge home. Speech therapy evaluation pending. 2. Acute hypoxemic respiratory failure secondary to community-acquired pneumonia Continue current supportive measures and wean supplemental oxygen as tolerated. Encourage incentive spirometer use and mobilize patient as tolerated. Continue bronchodilators as ordered. I would plan to complete a 7-day treatment course of antibiotics. 3. Chronic systolic heart failure/troponin elevation Likely secondary to demand ischemia in the setting of #1. Baseline cardiac medications can be restarted from my perspective. 4. Hypertension/hyperlipidemia/depression/GERD/hypothyroidism Complicates care, management, recovery and prognosis. Continue home medications as needed. This note was generated with [employer] software. It may contain incorrect words, spelling, and punctuation that were not noted in checking the note before signing. Inpatient E&M: 07884 Subs Hosp L2
--- NOTE | 2019-10-30 13:26 | PCM.PN.HOSP ---
Patient Problems: Active and Suspected Problems (Last Updated 09/25/19 @ 14:00 by Jocy Nguyen) Acute respiratory failure with hypoxia (Acute) Right lower lobe pneumonia (Acute) Septic shock (Acute) Elevated troponin (Acute) Subjective: Patient seen and examined. He had no complaints this morning was lying comfortably in bed. Shortness of breath remains the same he is on 4 L of oxygen. However with ambulation, patient became hypoxic going down to 86% on room air and required up to 6 L of oxygen to be able to saturate around 90%. He has remained hemodynamically stable otherwise. Vitals/I&O's: Vital Signs Temp Pulse Resp BP Pulse Ox 97.8 F 82 20 H 115/93 H 86 10/30/19 11:46 10/30/19 11:46 10/30/19 11:46 10/30/19 12:07 10/30/19 12:06 Oxygen Flow Rate (L/min) [ 6 AMBULATION with Oxygen] Oxygen Flow Rate (L/min) [ 0 AMBULATING on Room Air] Oxygen Flow Rate (L/min) [At 0 REST on Room Air] Oxygen Flow Rate (L/min) 2 Oxygen Delivery Method Nasal Cannula Weight: 200 lb 6.403 oz Body Mass Index (BMI) 29.5 Finger Stick Blood Glucose 109 Intake and Output for Last 24 Hours 10/28/19 10/29/19 10/30/19 23:59 23:59 23:59 Intake Total 1780 / 1930 1630 / 1630 575 / 575 Output Total 1750 / 2700 3125 / 3125 675 / 675 Balance 30 / -770 -1495 / -1495 -100 / -100 General: No apparent distress, alert, responsive HEENT: Atraumatic, PERRLA, EOMI, Normocephalic Oral: Dry Mucosa Neck: Supple, No JVD, Negative Carotid Bruits Lungs: diminished breath sounds bibasally, no wheezes or crackles. On 4L of oxygen. Cardiovascular: Regular rate, Regular Rhythm, Normal S1, Normal S2, No murmurs Abdomen: Bowel Sounds Present, Soft, Non Tender, no organomegaly Extremities: No clubbing, No cyanosis, No edema, Capillary Refill Less than 3 Seconds Skin: No rashes, No breakdown Musculoskeletal: No Tenderness to Palpation of Joints or Extremities Lymphatic: No Cervical, Supraclavicular, or Inguinal Adenopathy Neurological: Cranial nerves II-XII grossly intact, Power 5/5 in all extremities. normal tone Psych/Mental Status: - -normal affect Microbiology Past 72 Hours 10/28/19 03:20 Sputum, Expectorated/Coughed Gram Stain - Final 10/28/19 03:20 Sputum, Expectorated/Coughed Respiratory Culture - Final Presumptive C albicans 10/24/19 11:40 Blood Culture (Wb) #2 - Other Blood Culture - Final No growth in 5 days. 10/24/19 08:40 Blood Culture (Wb) - Right Forearm Blood Culture - Final No growth in 5 days. Laboratory Results 10/30/19 05:25: WBC 11.3 H, RBC 4.21 L, Hgb 13.7, Hct 41.6, MCV 98.8 H, MCH 32.5 H, MCHC 32.9, RDW Std Deviation 46.1 H, RDW Coeff of Bharath 12.9, Plt Count 214, MPV 10.0, Immature Gran % (Auto) 2.300 H, Neut % (Auto) 78.2 H, Lymph % (Auto) 8.2 L, Saline % (Auto) 9.7, Eos % (Auto) 1.2, Baso % (Auto) 0.4, Absolute Neuts (auto) 8.9 H, Absolute Lymphs (auto) 0.93, Nucleated RBC % 0 10/30/19 05:25: Sodium 137, Potassium 4.0, Chloride 102, Carbon Dioxide 28.0, Anion Gap 7, BUN 21 H, Creatinine 1.12, Estim Creat Clear Calc 71.21, Est GFR (MDRD) Af Amer 84, Est GFR (MDRD) Non-Af 70, BUN/Creatinine Ratio 18.8, Glucose 90, Calcium 9.7 Current Medications Acetaminophen (Tylenol) 650 mg PO Q6H PRN PRN PRN Reason: Pain Score 1-10/Temp > 100.7 F Last Admin: 10/30/19 06:33 Dose: 650 mg Documented by: Albuterol Sulfate (Ventolin Aerosols) 2.5 mg INHALATION Q4H PRN PRN Reason: SOB &/OR WHEEZING Last Admin: 10/28/19 07:39 Dose: 2.5 mg Documented by: Aspirin (Ecotrin) 81 mg PO DAILY@0800 [facility] Last Admin: 10/30/19 10:07 Dose: 81 mg Documented by: Atorvastatin Calcium (Lipitor) 20 mg PO QHS [facility] Last Admin: 10/29/19 21:13 Dose: Not Given Documented by: Carvedilol (Coreg) 3.125 mg PO BID [facility] Clopidogrel Bisulfate (Plavix) 75 mg PO DAILY [facility] Last Admin: 10/30/19 10:09 Dose: 75 mg Documented by: Enoxaparin Sodium (Lovenox) 40 mg SC DAILY [facility] Last Admin: 10/30/19 10:09 Dose: 40 mg Documented by: Famotidine (Pepcid) 20 mg PO BID [facility] Last Admin: 10/30/19 10:09 Dose: 20 mg Documented by: Fludrocortisone Acetate (Florinef) 0.2 mg PO DAILY@0600 [facility] Fludrocortisone Acetate (Florinef) 0.1 mg PO BID@1400,2200 [facility] Glucagon () 1 mg IM .X1 PRN PRN Reason: Hypoglycemia Guaifenesin (Mucinex) 1,200 mg PO BID [facility] Last Admin: 10/30/19 10:08 Dose: 1,200 mg Documented by: Sodium Chloride () 250 mls @ 15 mls/hr IV .[id number] PRN PRN Reason: Saline Flush Sodium Chloride () 250 mls @ 15 mls/hr IV .[id number] PRN PRN Reason: Additional IVPB Infusion Dextrose (Dextrose 10%-Water) 250 mls @ 999 mls/hr IV .Q16M PRN; Protocol PRN Reason: HYPOGLYCEMIA Levofloxacin (Levaquin Iv) 750 mg in 150 mls @ 100 mls/hr IV Q24 [facility] Last Admin: 10/30/19 11:48 Dose: 100 mls/hr Documented by: Levothyroxine Sodium (Synthroid) 50 mcg PO SuSa@0600 [facility] Last Admin: 10/25/19 05:57 Dose: 50 mcg Documented by: Levothyroxine Sodium (Synthroid) 100 mcg PO MoTuWeThFr@0600 [facility] Last Admin: 10/30/19 06:02 Dose: 100 mcg Documented by: Multivitamins/Minerals (Multivitamin With Minerals (Bkc)) 1 tablet PO DAILY@0800 [facility] Last Admin: 10/30/19 10:08 Dose: 1 tablet Documented by: Ondansetron HCl (Zofran) 4 mg IV Q8H PRN PRN PRN Reason: NAUSEA/VOMITING Potassium Chloride (K-Dur) 20 meq PO BID [facility] Last Admin: 10/30/19 10:08 Dose: 20 meq Documented by: Sertraline HCl (Zoloft) 50 mg PO BID [facility] Last Admin: 10/30/19 10:09 Dose: 50 mg Documented by: Sodium Chloride () 10 - 40 ml IV UD PRN PRN Reason: SALINE FLUSH Last Admin: 10/30/19 10:41 Dose: 10 ml Documented by: STROKE Vital Signs/Narrative: Vital Signs Temp Pulse Resp BP BP Pulse Ox Pulse Ox 10/30/19 12:07 115/93 H 10/30/19 12:06 86 10/30/19 11:46 97.8 F 82 20 H 103/75 93 10/30/19 11:00 20 H 90 Pulse Ox Pulse Ox 10/30/19 12:07 10/30/19 12:06 92 86 10/30/19 11:46 10/30/19 11:00 Medical Necessity - Tobacco Use Smoking Status: Never smoker Assessment/Plan All Active Problems (Last Updated 09/25/19 @ 14:00 by Jocy Nguyen) Acute respiratory failure with hypoxia (Acute) Right lower lobe pneumonia (Acute) Septic shock (Acute) Elevated troponin (Acute) H/O coronary artery bypass surgery (Resolved 02/26/13) History of non-ST elevation myocardial infarction (NSTEMI) (Resolved 06/17/19) CVA (cerebral vascular accident) (Resolved 06/30/19) Acute exacerbation of CHF (congestive heart failure) (Resolved) Dyspnea on exertion (Resolved) Vertigo (Resolved) 68 y/o admitted with a complaint of shortness of breath 1. Septic shock due to community acquired pneumonia urine for strep and Legionella, and respiratory panel were negative now on levaquin; to complete 7 days of antibiotics 2D echo; EF of 60%, with normal LV size and moderate concentric LV hypertrophy with no regional wall motion abnormalities. critical care on board blood cultures showed no growth hydrocortisone tapered off 2. Acute hypoxic respiratory failure due to community acquired pneumonia on 4L of oxygen at rest, and with exertion, is requiring up to 6L of oxygen to maintain sats>91% morning, and unable to be weaned off oxygen CTA of chest showed no PE, but showed consolidation in right upper, right middle and right lower lobes critical care on board; there is a concern for possible aspiration as well. Speech therapy to evaluate patient continue bronchodilators; titrate oxygen to maintain sats >90% 3. Nonstemi Cardiology on board; think it is likely type II DE due to demand ischemia. Advocated conservative management for now in light of patient's septic shock and community-acquired pneumonia as well as acute hypoxic respiratory failure. dont recommend repeat catheterisation as he had cath on 06/18/2019 2D echo as under 1 cozaar discontinued o/a of mid morning hypotension. On Carvedilol 3.125mg bid 4. History of adrenal insufficiency and orthostatic hypotension Patient appears to have been borderline hypotension, which is responsive to IV fluid administration. Will increase morning dose of fludrocortisone to 0.2 mg and continue with 0.1 mg in the afternoon and evening. will need to follow up with endocrinology after discharge 6. Hypertension; on carvedilol; losartan discontinued o.a of low BP 7. hyperlipidemia: on statin 8. Hypothyroidism: on synthroid 9. HFrEF: stable. lasix on hold. on carvedilol and losartan 10. CAD s/p CABG: on aspirin, statin and carvedilol. DVT prophylaxis; lovenox GI prophylaxis: famotidine Code status: full code Inpatient E&M: 97123 Subs Hosp L2
--- NOTE | 2019-10-30 15:09 | NURSING ---
O2 INCREASED TO 3L NC
[2019-10-30] MEDS: 0.9% Normal Saline 1,000 ML 999 ML IV (15:37)
--- NOTE | 2019-10-30 16:39 | CON.PCM_ITS ---
- Consult Date of Consult: 10/30/19 - Reason for Consult The patient is a 68 year old gentleman admitted for sepsis/pneumonia. He has done well except he has had labile blood pressures going as low as 70 systolic every mid morning. I spoke to his primary care physician Dr. Tolbert. She states that he has chronic hypotension. 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 He is being treated with fludrocortisone for that. She stated that it is not felt that he has primary adrenal insufficiency, however he is being treated with prednisone 5 mg daily. So, he now has adrenal failure, definitely at a minimum, secondary adrenal failure. Suggestions: 1. Prednisone 10 mg po today 2. Prednisone 10 mg po daily. This should be continued for at least one week. Then follow up with PCP or myself for weaning back to 5 mg. This will improve his blood pressure. 3. Stockings to improve venous return. 4. I had asked Dr. Andrade to order cortrosyn stimulation test. But will cancel that as he will certainly fail that with longstanding a history of prednisone use. Mohan Varela M.D. [facility] [address] [place] [address] tel: [phone] fax: [phone]
[2019-10-30] MEDS: predniSONE 10 MG Tablet PO (17:41)
[2019-10-30] MEDS: Carvedilol 3.125 MG TABLET PO (22:38)
[2019-10-31] VITALS (7 sets, daily range): BP systolic 106–155; BP diastolic 74–86; PULSE 80–85; RESP 16–18; TEMP 36.5–36.6; O2SAT 85–94
[2019-10-31] MEDS: Levothyroxine 50 MCG Tablet PO (05:26)
[2019-10-31] MEDS: Multivitamins,Ther W-Minerals Tablet 1 TABLET PO (07:55)
[2019-10-31] MEDS: predniSONE 10 MG Tablet PO (07:55)
[2019-10-31] MEDS: Aspirin E.C. 81 MG Tablet PO (07:55)
--- NOTE | 2019-10-31 08:10 | PN_ITS ---
Subjective: The patient was seen and examined at the bedside this morning. Events from the last 24 hours have been reviewed. The patient is currently afebrile, hemodynamically stable and maintaining appropriate oxygen saturations on 3 L/min via nasal cannula. The patient was evaluated by speech therapy yesterday who recommended that the patient complete an updated modified barium study swallow prior to upgrading from his current diet recommendation due to a history of aspiration of thin liquids and presence of pneumonia. Objective: The patient's most recent lab work, culture data and imaging studies have all been personally reviewed. - Physical Exam Vitals/I&O's: Vital Signs Temp Pulse Resp BP Pulse Ox 97.7 F L 80 16 106/77 88 10/31/19 08:00 10/31/19 08:00 10/31/19 08:00 10/31/19 08:00 10/31/19 08:00 Oxygen Flow Rate (L/min) [ 6 AMBULATION with Oxygen] Oxygen Flow Rate (L/min) [ 0 AMBULATING on Room Air] Oxygen Flow Rate (L/min) [At 0 REST on Room Air] Oxygen Flow Rate (L/min) 3 Oxygen Delivery Method Nasal Cannula Weight: 200 lb 6.403 oz Body Mass Index (BMI) 29.5 Finger Stick Blood Glucose 109 Intake and Output for Last 24 Hours 10/29/19 10/30/19 10/31/19 23:59 23:59 23:59 Intake Total 1630 / 1630 2165 / 2345 780 / 780 Output Total 3125 / 3125 1925 / 2425 1300 / 1300 Balance -1495 / -1495 240 / -80 -520 / -520 General: Alert, Cooperative, No apparent distress HEENT: Atraumatic, Normocephalic Oral: No Gingival or Mucosal Lesions/ Ulcerations Neck: Supple, No Nodes, Trachea Midline Lungs: No rhonchi, No wheeze, No rales, Diminished Cardiovascular: Regular rate, Regular Rhythm, Normal S1, Normal S2 Abdomen: Bowel Sounds Present, Soft, Non Tender Extremities: No clubbing, No cyanosis, No edema Skin: No breakdown Musculoskeletal: No Tenderness to Palpation of Joints or Extremities Lymphatic: No Cervical, Supraclavicular, or Inguinal Adenopathy Neurological: Cranial nerves II-XII grossly intact, Neuro grossly intact Psych/Mental Status: Alert and oriented to time, place, person, mood and affect Labs (Last 48 Hours) 10/30/19 10/30/19 10/30/19 05:25 05:25 16:00 WBC 11.3 H RBC 4.21 L Hgb 13.7 Hct 41.6 MCV 98.8 H MCH 32.5 H MCHC 32.9 RDW Std Deviation 46.1 H RDW Coeff of Bharath 12.9 Plt Count 214 MPV 10.0 Immature Gran % (Auto) 2.300 H Neut % (Auto) 78.2 H Lymph % (Auto) 8.2 L [place] % (Auto) 9.7 Eos % (Auto) 1.2 Baso % (Auto) 0.4 Absolute Neuts (auto) 8.9 H Absolute Lymphs (auto) 0.93 Nucleated RBC % 0 Sodium 137 Potassium 4.0 Chloride 102 Carbon Dioxide 28.0 Anion Gap 7 BUN 21 H Creatinine 1.12 Estim Creat Clear Calc 71.21 Est GFR (MDRD) Af Amer 84 Est GFR (MDRD) Non-Af 70 BUN/Creatinine Ratio 18.8 Glucose 90 Calcium 9.7 Cortisol 9.20 Microbiology 10/28/19 03:20 Sputum, Expectorated/Coughed Gram Stain - Final 10/28/19 03:20 Sputum, Expectorated/Coughed Respiratory Culture - Final Presumptive C albicans 10/24/19 11:40 Blood Culture (Wb) #2 - Other Blood Culture - Final No growth in 5 days. 10/24/19 08:40 Blood Culture (Wb) - Right Forearm Blood Culture - Final No growth in 5 days. Clinical Impression(s) from Imaging Studies Chest X-Ray 10/24/19 07:49 IMPRESSION: 1. Patchy infiltrate in right lower lobe likely due to pneumonia. 2. Mild infiltrate in right upper lobe. Electronically Signed: Mervin Addison MD at 8:38 EDT Tel , Service support , Chest X-Ray 10/24/19 11:20 IMPRESSION: 1. Left internal jugular central venous catheter in place. 2. Right lung infiltrates increased since the previous exam. Electronically Signed: Mervin Addison MD at 12:18 EDT Tel , Service support , Chest X-Ray 10/28/19 07:43 IMPRESSION: Improved aeration of the right upper and right lower lobe infiltrates. Electronically Signed: Mckay Blackwood, at 8:28 EDT , Service support , Chest CTA 10/29/19 07:57 IMPRESSION: Consolidation in the right upper, right middle and right lower lobes. No evidence of pneumothorax. Electronically Signed: Mckay Aranaarun, at 8:57 EDT , Service support , Current Medications Acetaminophen (Tylenol) 650 mg PO Q6H PRN PRN PRN Reason: Pain Score 1-10/Temp > 100.7 F Last Admin: 10/30/19 15:29 Dose: 650 mg Documented by: Albuterol Sulfate (Ventolin Aerosols) 2.5 mg INHALATION Q4H PRN PRN Reason: SOB &/OR WHEEZING Last Admin: 10/28/19 07:39 Dose: 2.5 mg Documented by: Aspirin (Ecotrin) 81 mg PO DAILY@0800 [facility] Last Admin: 10/31/19 07:55 Dose: 81 mg Documented by: Atorvastatin Calcium (Lipitor) 20 mg PO QHS [facility] Last Admin: 10/30/19 22:39 Dose: Not Given Documented by: Carvedilol (Coreg) 3.125 mg PO BID [facility] Last Admin: 10/30/19 22:38 Dose: 3.125 mg Documented by: Clopidogrel Bisulfate (Plavix) 75 mg PO DAILY [facility] Last Admin: 10/30/19 10:09 Dose: 75 mg Documented by: Enoxaparin Sodium (Lovenox) 40 mg SC DAILY [facility] Last Admin: 10/30/19 10:09 Dose: 40 mg Documented by: Famotidine (Pepcid) 20 mg PO BID [facility] Last Admin: 10/30/19 22:40 Dose: 20 mg Documented by: Fludrocortisone Acetate (Florinef) 0.1 mg PO BID@1400,2200 [facility] Last Admin: 10/30/19 22:38 Dose: 0.1 mg Documented by: Glucagon () 1 mg IM .X1 PRN PRN Reason: Hypoglycemia Guaifenesin (Mucinex) 1,200 mg PO BID [facility] Last Admin: 10/30/19 22:39 Dose: 1,200 mg Documented by: Sodium Chloride () 250 mls @ 15 mls/hr IV .[id number] PRN PRN Reason: Saline Flush Sodium Chloride () 250 mls @ 15 mls/hr IV .[id number] PRN PRN Reason: Additional IVPB Infusion Dextrose (Dextrose 10%-Water) 250 mls @ 999 mls/hr IV .Q16M PRN; Protocol PRN Reason: HYPOGLYCEMIA Levofloxacin (Levaquin Iv) 750 mg in 150 mls @ 100 mls/hr IV Q24 [facility] Last Infusion: 10/30/19 13:18 Dose: Infused Documented by: Levothyroxine Sodium (Synthroid) 50 mcg PO SuSa@0600 [facility] Last Admin: 10/31/19 05:26 Dose: 50 mcg Documented by: Levothyroxine Sodium (Synthroid) 100 mcg PO MoTuWeThFr@0600 [facility] Last Admin: 10/30/19 06:02 Dose: 100 mcg Documented by: Multivitamins/Minerals (Multivitamin With Minerals (Bkc)) 1 tablet PO DAILY@0800 [facility] Last Admin: 10/31/19 07:55 Dose: 1 tablet Documented by: Ondansetron HCl (Zofran) 4 mg IV Q8H PRN PRN PRN Reason: NAUSEA/VOMITING Potassium Chloride (K-Dur) 20 meq PO BID [facility] Last Admin: 10/30/19 22:39 Dose: 20 meq Documented by: Prednisone () 10 mg PO DAILY@0800 [facility] Last Admin: 10/31/19 07:55 Dose: 10 mg Documented by: Sertraline HCl (Zoloft) 50 mg PO BID [facility] Last Admin: 10/30/19 22:40 Dose: 50 mg Documented by: Sodium Chloride () 10 - 40 ml IV UD PRN PRN Reason: SALINE FLUSH Last Admin: 10/30/19 15:31 Dose: 10 ml Documented by: Medical Necessity - Tobacco Use Smoking Status: Never smoker Assessment/Plan All Active Problems (Last Updated 09/25/19 @ 14:00 by Jocy Nguyen) Acute respiratory failure with hypoxia (Acute) Right lower lobe pneumonia (Acute) Septic shock (Acute) Elevated troponin (Acute) H/O coronary artery bypass surgery (Resolved 02/26/13) History of non-ST elevation myocardial infarction (NSTEMI) (Resolved 06/17/19) CVA (cerebral vascular accident) (Resolved 06/30/19) Acute exacerbation of CHF (congestive heart failure) (Resolved) Dyspnea on exertion (Resolved) Vertigo (Resolved) RECOMMENDATIONS: 1. Start prednisone therapy per recommendations of endocrinology. 2. Await modified barium swallow results, as recommended by speech therapy. 3. Continue Levaquin to complete a 7-day treatment course. 4. Wean supplemental oxygen to maintain saturations at or above 90%. 5. Encourage aggressive bronchopulmonary hygiene. IMPRESSIONS: 1. Septic shock with relative adrenal insufficiency secondary to right lower lobe community-acquired pneumonia The patient remains hemodynamically stable, off of vasopressor support. The patient has been weaned from stress dose steroids and will remain on Florinef per home regimen. Continue antimicrobials with plans to complete a full 7-day treatment course. Continue to wean supplemental oxygen to maintain saturations at or above 90%. Encourage incentive spirometer use and mobilize patient as tolerated. Continue aggressive bronchopulmonary hygiene. Perform walking oximetry study prior to consideration for discharge home. Given history of aspiration, persistent oxygen requirement and right lower lobe pneumonia, speech therapy is planning for repeat modified barium swallow. 2. Acute hypoxemic respiratory failure secondary to community-acquired pneumonia Continue current supportive measures and wean supplemental oxygen as tolerated. Encourage incentive spirometer use and mobilize patient as tolerated. Continue bronchodilators as ordered. I would plan to complete a 7-day treatment course of antibiotics. 3. Chronic systolic heart failure/troponin elevation Likely secondary to demand ischemia in the setting of #1. Baseline cardiac medications can be restarted from my perspective. 4. Hypertension/hyperlipidemia/depression/GERD/hypothyroidism Complicates care, management, recovery and prognosis. Continue home medications as needed. This note was generated with [employer] software. It may contain incorrect words, spelling, and punctuation that were not noted in checking the note before signing. Inpatient E&M: 87532 Subs Hosp L2
[2019-10-31] MEDS: guaiFENesin 1,200 MG Tablet 1200 MG PO (09:55)
[2019-10-31] MEDS: levoFLOXacin IV 750 MG/150 ML BAG 100 MG IV (09:55)
[2019-10-31] MEDS: Sertraline 50 MG Tablet PO (09:55)
[2019-10-31] MEDS: Carvedilol 3.125 MG TABLET PO (09:55)
[2019-10-31] MEDS: Enoxaparin 40 MG/0.4 ML Syringe SC (09:56)
[2019-10-31] MEDS: Clopidogrel Bisulfate 75 MG Tablet PO (09:56)
[2019-10-31] MEDS: Famotidine 20 MG Tablet PO (09:56)
--- NOTE | 2019-10-31 11:04 | CM.UR ---
Was alerted that patient is being discharged and needs O2. Obtained green sheet packet, printed up documentation and called [facility] at this time. Spoke with Kayla who took all the information. Kelly from [facility] [place] called me back at this time. She had already been alerted. States when we have the final order to fax it over and to call her. she would like to come here with tank and then follow him home to do home set up. Johnson Ivory RN, CCM.
--- NOTE | 2019-10-31 11:45 | DCINST_ITS ---
- Discharge Diagnoses Current Active Problems: Current Active and Chronic Problems (Last Updated 09/25/19 @ 14:00 by Jocy Nguyen) Acute respiratory failure with hypoxia (Acute) Right lower lobe pneumonia (Acute) Septic shock (Acute) Elevated troponin (Acute) You will use the following diet at home:: Cardiac Your food should be the consistency of: Regular Your liquids should be the consistency of: Regular/Thin Discharge Activity: Return to Normal Activity Weight Bearing Status: Weight bearing as tolerated Call your doctor if you observe: Shortness of breath, Dizziness, Fainting spells, Swelling in the ankles Instructions: Using Oxygen Safely, Using Oxygen at Home, Inside the ICU (Intensive Care Unit), Low Blood Pressure (Hypotension), ED Hypotension Orthos tatic Additional Instructions: use oxygen 6L as needed to maintain saturation >90%. wear Stockings on Legs to help with low blood pressure Allergies/Adverse Reactions: Allergies ranolazine [From Ranexa] Adverse Reaction (Intermediate, Verified 10/24/19 07:44) wake up at night feeling like choking ciprofloxacin [From Cipro] Adverse Reaction (Verified 10/24/19 07:44) Vomiting ciprofloxacin HCl [From Cipro] Adverse Reaction (Verified 10/24/19 07:44) Vomiting metronidazole [From Flagyl] Adverse Reaction (Verified 10/24/19 07:44) Vomiting morphine Adverse Reaction (Verified 10/24/19 07:44) after 2-3 days I turn into a monster ofloxacin [From Floxin] Adverse Reaction (Verified 10/24/19 07:44) Vomiting Medications to take at Discharge Clopidogrel Bisulfate [Plavix] 75 mg PO DAILY 10/12/15 albuterol sulfate 90 mcg/actuation aerosol inhaler 2 puff INHALATION Q4H PRN g 05/05/19 Aspirin E.C. [Ecotrin] 81 mg PO DAILY@0800 06/17/19 Guaifenesin [Mucinex] 1,200 mg PO Q12H 06/17/19 Multivitamin with Minerals [Multiple Vitamin] 1 tab PO DAILY 06/17/19 Pantoprazole Sodium [Protonix] 40 mg PO DAILY 06/17/19 Meclizine HCl 12.5 mg PO BID #60 tab 07/01/19 levothyroxine 100 mcg tablet 100 mcg PO MOTUWETHFR tab 07/17/19 sertraline 100 mg tablet 50 mg PO BID tab 07/17/19 lisinopril 2.5 mg tablet 2.5 mg PO DAILY #30 tab 08/18/19 potassium chloride 20 mEq tablet,extended release(part/cryst) 20 meq PO BID tab 08/18/19 Atorvastatin Calcium [Lipitor] 20 mg PO QHS 10/24/19 Carvedilol 6.25 mg PO BID 10/24/19 Diclofenac Sodium [Voltaren] 1 applic TP DAILY 10/24/19 Levothyroxine [Synthroid] 50 mcg PO SUSA 10/24/19 Tamsulosin HCl [Flomax] 0.4 mg PO QHS 10/24/19 busPIRone [Buspar] 5 mg PO TID 10/24/19 Fludrocortisone Acetate 0.1 mg PO UD #90 tab 10/31/19 Prednisone 10 mg PO DAILY #30 tab 10/31/19 The following prescriptions were given: Fludrocortisone Acetate 0.1 mg PO UD #90 tab Transmission Status: Pending to [id number] Prednisone 10 mg PO DAILY #30 tab Transmission Status: Pending to [id number] Primary Care Physician: Kelley Tolbert MD [Primary Care Provider] - Test Results: Test results from this visit will be discussed in further detail at your follow- up appointment, if applicable. Please Follow Up With: Kelley Tolbert MD Please Follow Up With: Karlo Donald DO When: 1-2 weeks Please Follow Up With: Mohan Varela MD When: 1-2 weeks Proposed Discharge Date: 10/31/19
--- NOTE | 2019-10-31 11:45 | PCM.DC.SUM ---
Discharge Date and Diagnosis Date of Admission: 10/24/19 Date of Discharge: 10/31/19 - Primary Discharge Diagnosis Active and Suspected Problems (Last Updated 09/25/19 @ 14:00 by Jocy Nguyen) Acute respiratory failure with hypoxia (Acute) Right lower lobe pneumonia (Acute) Septic shock (Acute) Elevated troponin (Acute) adrenal insufficiency nonstemi - Secondary Discharge Diagnosis Chronic Problems (Last Updated 09/25/19 @ 14:00 by Jocy Nguyen) Atherosclerosis of apache coronary artery of apache heart without angina pectoris (Chronic) Atherosclerosis of coronary artery bypass graft without angina pectoris (Chronic) Ischemic cardiomyopathy (Chronic) Chronic systolic (congestive) heart failure (Chronic) Essential hypertension (Chronic) Hyperlipidemia (Chronic) Bilateral carotid artery stenosis (Chronic) Bilateral carotid artery stenting 2018 History of throat cancer (Chronic) Hospital Course and Treatment Imaging Results: Diagnostic Data Chest X-Ray 10/28/19 07:43 IMPRESSION: Improved aeration of the right upper and right lower lobe infiltrates. Electronically Signed: Mckay Blackwood, at 8:28 EDT , Service support , Chest CTA 10/29/19 07:57 IMPRESSION: Consolidation in the right upper, right middle and right lower lobes. No evidence of pneumothorax. Electronically Signed: Mckay Blackwood, at 8:57 EDT , Service support , Operations: None Summary of Care Provided: The patient is a 68 year old M with an extensive PMH as outlined. He was admitted via the ED on 10/24/2019 with a complaint of sudden onset shortness of breath. History was mainly taken from his on the phone as patient is lethargic. Per his , patient started complaining of not feeling well yesterday. He gradually became short of breath and symptoms worsen. He had an associated cough which was dry. She denied him having any fever or chills, any nausea or vomiting and denied him having been complaining of any urinary symptoms. Review of systems was otherwise negative. Patient just kept talking incoherently when asked questions. On admission in the ED, he was hypotensive, with BP going down to the 60s systolic even with IVF administration. Vitalss were temperature of 98.4F, RR of 24 and AK of 84. He was on 15L of oxygen. Labs showed Cr of 1.58, with potassum of 3.4 and lactic acid of 2.1. Wbc was 17.1 and Hb was 13.5. Initial troponin was 0.832, and EKG showed no acute ST changes. CXR showed patchy infiltrate in right lower lobe due to pneumonia and mild infiltrate in right upper lobe. Despite being resuscitated with IVF, patient was still hypotensive. AGB uvqar8r pH of 7.33, with pCO2 of 46 and pO2 of 94. I did ask ED doctor to place central line before admission from ED to ICU as blood pressure was 67/53 in ED at time hospitalist reviewed patient. BP however came up to 117/53 per ED, after patient received IVF. There were concerns about possible coronavirus infection also. Patient received a 30 mils per KG IV fluid resuscitation per sepsis protocol in the ED prior to coming up to the ICU. On coming to the ICU and been reviewed, blood pressure was down in the 60s systolic. He was admitted to be managed for septic shock due to community acquired pneumonia and acute hypoxic respiratory failure due to community-acquired pneumonia. Of note, he hasnt come into contact with any person with COVID 19, according to his . Patient had central line placed in ICU after consent was obtained from his over the phone. Patient was started on BIPAP after admission. He was started on IV ceftriaxone and azithromycin and was also started on Levophed. Patient's blood pressure improved after he was given IV hydrocortisone due to history of adrenal insufficiency and he was weaned off of Levophed.. He was transitioned off BiPAP onto oxygen by nasal cannula. Creatinine also trended down. Cardiology was consulted on account of non-STEMI with troponins trending upwards to a peak of 2.5. Cardiology thought that it was likely type II non-STEMI due to demand ischemia from septic shock and advocated conservative management. 2D echo done showed EF of 60% with normal left ventricular size and moderate concentric left ventricular hypertrophy with no regional wall motion abnormalities. Blood cultures were negative and respiratory culture grew presumptive Maria Antonia albicans. Patient was eventually transferred to the progressive care unit. Patient subsequently required oxygen again needing as high as 6 L of oxygen via nasal cannula with ambulation. Patient was also noted to be having low blood pressures usually in the early mornings which was thought to be due to orthostatic hypotension and adrenal insufficiency. Blood pressure usually rebounded after he was given a bolus of normal saline. His fludrocortisone dose was increased to 0.2 daily in the morning, and 0.1 mg in the afternoon and evening. Endocrinology was consulted. His lisinopril was discontinued. He had been started on Cozaar but this was also discontinued on account of hypotension. There was concerns about aspiration due to patient's persistent need for 4 to 6 L of oxygen via nasal cannula. CT of the chest done was negative for PE showed consolidation in the right upper middle and lower lung lobes with no evidence of pneumothorax. Per discussion with risk intern, there was concerns about aspiration and speech therapy evaluated patient. It was recommended that patient do to do a modified barium swallow test that he was put on mechanical soft diet. Patient however refused to do the modified barium swallow test and said he felt well enough and insisted on being discharged on 10/31/2019. Patient expressed understanding that he was at risk of aspiration and understood the need for the barium swallow test but still did not want to do the test. With ambulation, patient's oxygen saturation dropped to 85% on room air and he required 6 L to go up to 92%. Therefore patient qualified for home oxygen at 6 L. He was discharged home with home oxygen on 10/31/2019 and is to follow-up with his primary care doctor and pulmonology as well as endocrinology. Per endocrinology recommendations, he was started on prednisone 10 mg daily. Dose will be adjusted once he follows up with milk deliverer on outpatient basis. He is also to follow-up with his bus inspector. Patient seen and examined prior to discharge. He had no complaints. He felt well and wanted to go home. Review of symptoms otherwise negative. Labs and vitals reviewed. Home medications reviewed and reconciled. O/e: Vital Signs Height 6 ft Weight: 200 lb 6.403 oz Weight in Pounds 200.4 lbs Pulse Ox [AMBULATION with 92 Oxygen] Pulse Ox [AMBULATING on Room 85 Air] Pulse Ox [At REST on Room Air] 88 Pulse Ox 91 Temperature 97.7 F Pulse Rate 82 Respiratory Rate 18 Blood Pressure [BP] 88/59 Blood Pressure 107/74 Blood Pressure Position [BP] Semi-Fowlers Blood Pressure Position Semi-Fowlers General: No apparent distress, alert, responsive HEENT: Atraumatic, PERRLA, EOMI, Normocephalic Oral: Dry Mucosa Neck: Supple, No JVD, Negative Carotid Bruits Lungs: diminished breath sounds bibasally, no wheezes or crackles. On 4L of oxygen. Cardiovascular: Regular rate, Regular Rhythm, Normal S1, Normal S2, No murmurs Abdomen: Bowel Sounds Present, Soft, Non Tender, no organomegaly Extremities: No clubbing, No cyanosis, No edema, Capillary Refill Less than 3 Seconds Skin: No rashes, No breakdown Musculoskeletal: No Tenderness to Palpation of Joints or Extremities Lymphatic: No Cervical, Supraclavicular, or Inguinal Adenopathy Neurological: Cranial nerves II-XII grossly intact, Power 5/5 in all extremities. normal tone Psych/Mental Status: - -normal affect Plan is for discharge home today with 6 L of oxygen. He is also to follow-up with his bus inspector. - Physical Exam Vitals/I&O's: Vital Signs Temp Pulse Resp BP Pulse Ox 97.7 F L 82 18 107/74 92 10/31/19 09:48 10/31/19 09:48 10/31/19 09:48 10/31/19 09:48 10/31/19 09:48 Oxygen Flow Rate (L/min) [ 6 AMBULATION with Oxygen] Oxygen Flow Rate (L/min) [ 0 AMBULATING on Room Air] Oxygen Flow Rate (L/min) [At 0 REST on Room Air] Oxygen Flow Rate (L/min) 4 Oxygen Delivery Method Nasal Cannula Weight: 200 lb 6.403 oz Body Mass Index (BMI) 29.5 Finger Stick Blood Glucose 109 Intake and Output for Last 24 Hours 10/29/19 10/30/19 10/31/19 23:59 23:59 23:59 Intake Total 1630 / 1630 2165 / 2345 1150 / 1150 Output Total 3125 / 3125 1925 / 2425 1800 / 1800 Balance -1495 / -1495 240 / -80 -650 / -650 Microbiology Past 72 Hours 10/28/19 03:20 Sputum, Expectorated/Coughed Gram Stain - Final 10/28/19 03:20 Sputum, Expectorated/Coughed Respiratory Culture - Final Presumptive C albicans 10/24/19 11:40 Blood Culture (Wb) #2 - Other Blood Culture - Final No growth in 5 days. 10/24/19 08:40 Blood Culture (Wb) - Right Forearm Blood Culture - Final No growth in 5 days. Laboratory Results 10/30/19 16:00: Cortisol 9.20 Current Medications Acetaminophen (Tylenol) 650 mg PO Q6H PRN PRN PRN Reason: Pain Score 1-10/Temp > 100.7 F Last Admin: 10/30/19 15:29 Dose: 650 mg Documented by: Albuterol Sulfate (Ventolin Aerosols) 2.5 mg INHALATION Q4H PRN PRN Reason: SOB &/OR WHEEZING Last Admin: 10/28/19 07:39 Dose: 2.5 mg Documented by: Aspirin (Ecotrin) 81 mg PO DAILY@0800 [facility] Last Admin: 10/31/19 07:55 Dose: 81 mg Documented by: Atorvastatin Calcium (Lipitor) 20 mg PO QHS [facility] Last Admin: 10/30/19 22:39 Dose: Not Given Documented by: Carvedilol (Coreg) 3.125 mg PO BID [facility] Last Admin: 10/31/19 09:55 Dose: 3.125 mg Documented by: Clopidogrel Bisulfate (Plavix) 75 mg PO DAILY [facility] Last Admin: 10/31/19 09:56 Dose: 75 mg Documented by: Enoxaparin Sodium (Lovenox) 40 mg SC DAILY [facility] Last Admin: 10/31/19 09:56 Dose: 40 mg Documented by: Famotidine (Pepcid) 20 mg PO BID [facility] Last Admin: 10/31/19 09:56 Dose: 20 mg Documented by: Fludrocortisone Acetate (Florinef) 0.1 mg PO BID@1400,2200 [facility] Last Admin: 10/30/19 22:38 Dose: 0.1 mg Documented by: Glucagon () 1 mg IM .X1 PRN PRN Reason: Hypoglycemia Guaifenesin (Mucinex) 1,200 mg PO BID [facility] Last Admin: 10/31/19 09:55 Dose: 1,200 mg Documented by: Sodium Chloride () 250 mls @ 15 mls/hr IV .[id number] PRN PRN Reason: Saline Flush Sodium Chloride () 250 mls @ 15 mls/hr IV .[id number] PRN PRN Reason: Additional IVPB Infusion Dextrose (Dextrose 10%-Water) 250 mls @ 999 mls/hr IV .Q16M PRN; Protocol PRN Reason: HYPOGLYCEMIA Levofloxacin (Levaquin Iv) 750 mg in 150 mls @ 100 mls/hr IV Q24 [facility] Last Infusion: 10/31/19 11:37 Dose: Infused Documented by: Levothyroxine Sodium (Synthroid) 50 mcg PO SuSa@0600 [facility] Last Admin: 10/31/19 05:26 Dose: 50 mcg Documented by: Levothyroxine Sodium (Synthroid) 100 mcg PO MoTuWeThFr@0600 [facility] Last Admin: 10/30/19 06:02 Dose: 100 mcg Documented by: Multivitamins/Minerals (Multivitamin With Minerals (Bkc)) 1 tablet PO DAILY@0800 [facility] Last Admin: 10/31/19 07:55 Dose: 1 tablet Documented by: Ondansetron HCl (Zofran) 4 mg IV Q8H PRN PRN PRN Reason: NAUSEA/VOMITING Potassium Chloride (K-Dur) 20 meq PO BID [facility] Last Admin: 10/31/19 09:55 Dose: 20 meq Documented by: Prednisone () 10 mg PO DAILY@0800 [facility] Last Admin: 10/31/19 07:55 Dose: 10 mg Documented by: Sertraline HCl (Zoloft) 50 mg PO BID [facility] Last Admin: 10/31/19 09:55 Dose: 50 mg Documented by: Sodium Chloride () 10 - 40 ml IV UD PRN PRN Reason: SALINE FLUSH Last Admin: 10/30/19 15:31 Dose: 10 ml Documented by: Discharge Diet: Low fat/ Low Cholesterol Discharge Activity: Return to Normal Activity Call your doctor if you observe: Shortness of breath, Swelling in the ankles Home Medications: Medications to take at Discharge Clopidogrel Bisulfate [Plavix] 75 mg PO DAILY 10/12/15 albuterol sulfate 90 mcg/actuation aerosol inhaler 2 puff INHALATION Q4H PRN g 05/05/19 Aspirin E.C. [Ecotrin] 81 mg PO DAILY@0800 06/17/19 Guaifenesin [Mucinex] 1,200 mg PO Q12H 06/17/19 Multivitamin with Minerals [Multiple Vitamin] 1 tab PO DAILY 06/17/19 Pantoprazole Sodium [Protonix] 40 mg PO DAILY 06/17/19 Meclizine HCl 12.5 mg PO BID #60 tab 07/01/19 levothyroxine 100 mcg tablet 100 mcg PO MOTUWETHFR tab 07/17/19 sertraline 100 mg tablet 50 mg PO BID tab 07/17/19 lisinopril 2.5 mg tablet 2.5 mg PO DAILY #30 tab 08/18/19 potassium chloride 20 mEq tablet,extended release(part/cryst) 20 meq PO BID tab 08/18/19 Atorvastatin Calcium [Lipitor] 20 mg PO QHS 10/24/19 Carvedilol 6.25 mg PO BID 10/24/19 Diclofenac Sodium [Voltaren] 1 applic TP DAILY 10/24/19 Levothyroxine [Synthroid] 50 mcg PO SUSA 10/24/19 Tamsulosin HCl [Flomax] 0.4 mg PO QHS 10/24/19 busPIRone [Buspar] 5 mg PO TID 10/24/19 Fludrocortisone Acetate 0.1 mg PO UD #90 tab 10/31/19 Prednisone 10 mg PO DAILY #30 tab 10/31/19 Following Prescrptions Were Given to Patient: Fludrocortisone Acetate 0.1 mg PO UD #90 tab Transmission Status: Received by [id number] Prednisone 10 mg PO DAILY #30 tab Transmission Status: Received by [id number] Primary Care Physician: Kelley Tolbert MD [Primary Care Provider] - Please Follow Up With: Kelley Tolbert MD When: one week Please Follow Up With: Mohan Varela MD When: 1-2 weeks Please Follow Up With: Karlo Donald DO When: 2-3 weeks Please Follow Up With: Terry Dunbar MD When: 1-2 weeks Patient Instructions: Using Oxygen Safely, Using Oxygen at Home, Inside the ICU (Intensive Care Unit), Low Blood Pressure (Hypotension), ED Hypotension Orthostatic Disposition: Home Minutes spent on discharge:: 45 Patient Condition:: Stable Medical Necessity - Tobacco Use Smoking Status: Never smoker Meaningful Use Info Meaningful Use Diagnoses (Choose all that apply): AMI - AMI/Post PCI/Angioplasty Aspirin given w/in 24hrs of arrival?: Yes ASA at discharge?: Yes Antiplatelet Therapy at Discharge:: Yes Statins at discharge?: Yes Stanford/ARB at discharge?: No Reason Stanford/ARB not ordered:: Hypotension Beta Renee at discharge?: Yes Done w/ Acute CO measure.: Yes Documented LVEF (%): 60 Inpatient E&M: [id number] Disch Hosp
--- NOTE | 2019-11-02 09:34 | CASEMGMT ---
CLINTON GREY Discharge Follow-up Phone Call: DEON: 17 Strata: 4 Call Date: 11/02/19 Discharge Date: 10/31/19 Time of Call: 0930 Duration: 4 min Admitting Diagnosis: Acute Hypoxic, respiratory failure, pneumonia CLINTON GREY completed follow-up phone call after recent hospitalization. Patient states that he is doing much better, has been wearing his oxygen at home. Patient states he is monitoring his blood pressure and oxygen level. Patient had no concern or questions regarding discharge instructions. Patient states he already had his medications at home and did not fill prescriptions. Patient is aware of follow-up appt with PCP on 11/04 and had instructions to schedule with pulmonology and endocrinology. Patient had no further questions or concern at this time.
== END 2019-10-31 13:33 | disposition home or self-care (01) | DRG 871 ==
LOC: ED 08:37 → ICU 09:39 → PCU 10-26 14:01
PROVIDERS: Hospitalist; Admitting Provider Student in an Organized Health Care Education/Training Program; Emergency Provider Emergency Medicine; PCP Internal Medicine; Visit Provider Student in an Organized Health Care Education/Training Program
DX: A41.9 Sepsis, unspecified organism (principal); J96.01 Acute respiratory failure with hypoxia; J18.9 Pneumonia, unspecified organism; G93.41 Metabolic encephalopathy; R65.21 Severe sepsis with septic shock; I21.A1 Myocardial infarction type 2; E27.40 Unspecified adrenocortical insufficiency; I50.22 Chronic systolic (congestive) heart failure; I25.810 Atherosclerosis of coronary artery bypass graft(s) without angina pectoris; E78.5 Hyperlipidemia, unspecified; E03.9 Hypothyroidism, unspecified; I25.10 Atherosclerotic heart disease of native coronary artery without angina pectoris; I11.0 Hypertensive heart disease with heart failure; I25.5 Ischemic cardiomyopathy; Z85.818 Personal history of malignant neoplasm of other sites of lip, oral cavity, and pharynx; Z95.1 Presence of aortocoronary bypass graft
CPT/HCPCS: 36415; 36600; 71045; 71275; 80048; 80076; 81001; 82533; 82803; 83605; 83690; 83880; 84484; 85025; 85610; 85730; 87040; 87070; 87086; 87205; 87449; 87633; 87804; 87807; 92526; 92610; 93005; 93306; 94002; 94003; 94640; 94667; 97110; 97116; 97162; 97165; 97530; 97535; 99251; 99285; J7030; J7040; J7050; J7120; Q9957; Q9967; A4216; C8929; G0463; J0696; J2405; J3490

== ENCOUNTER 2019-11-24 23:01 | Emergency (ER) | payer MEDICARE, MEDICAID, SELFPAY ==
[2019-10-24 11:04] VITALS: BMI 29.5
[2019-11-24 23:02] VITALS: BP 125/90; PULSE 85; RESP 18; TEMP 36.7; O2SAT 94; BMI 28.1
--- NOTE | 2019-11-24 23:20 | EKG12_ITS ---
Test Reason : FATIGUE Blood Pressure : / mmHG Vent. Rate : 086 BPM Atrial Rate : 086 BPM P-R Int : 174 ms QRS Dur : 102 ms QT Int : 396 ms P-R-T Axes : 031 039 084 degrees QTc Int : 473 ms Normal sinus rhythm Normal ECG Confirmed by RICO HANNA, JOANNE ([id number]), metropolitan editor JORDEN CORRAL ([id number]) on 11/30/2019 10:51:37 AM Referred By: ABHI Confirmed By:MARY GÓMEZ MD
--- NOTE | 2019-11-24 23:20 | ED.VIS.GEN ---
History of Present Illness Chief Complaint: Fatigue Informant: Patient Narrative: Patient stated that he had some insomnia at night difficulty sleeping. He felt like if he fell asleep he might not wake up in the morning. He slept 10 hours last night but intermittent up-and-down throughout the night to urinate. He took a nap this afternoon and then went with his son to can to help move a washer and dryer. He was unable to participate due to lack of strength. He just got out of the hospital 3 weeks ago after septic shock due to pneumonia. He stated that is resolved. He is no longer on antibiotics. He takes chronic prednisone for years. He denies any other symptoms except for feeling tired today. Denies any urinary symptoms. He is on home oxygen but has not been using it much lately as he has not needed it per patient. Denies shortness of breath fevers or chills or other symptoms - Past Medical History (1) Acute respiratory failure with hypoxia Status: Acute (2) Elevated troponin Status: Acute (3) Right lower lobe pneumonia Status: Acute (4) Septic shock Status: Acute (5) Atherosclerosis of coronary artery bypass graft without angina pectoris Status: Chronic (6) Atherosclerosis of habematolel coronary artery of habemat[place]l heart without angina pectoris Status: Chronic (7) Bilateral carotid artery stenosis Status: Chronic Comment: Bilateral carotid artery stenting 2017 (8) Chronic systolic (congestive) heart failure Status: Chronic (9) Essential hypertension Status: Chronic (10) History of throat cancer Status: Chronic (11) Hyperlipidemia Status: Chronic (12) Ischemic cardiomyopathy Status: Chronic (13) CVA (cerebral vascular accident) Status: Resolved Comment: 3 mm foci of restricted diffusion in the right frontal lobe periventricular white matter and right occipital lobe subcortical white matter, consistent with small acute infarcts. (14) H/O coronary artery bypass surgery Status: Resolved Comment: CABG x 4 LEVINE-LAD, Sequential SVG to D1 and LCx, SVG to RPDA 02/26/2013 (15) History of non-ST elevation myocardial infarction (NSTEMI) Status: Resolved Past Medical History - Allergies and Home Meds Allergies/Adverse Reactions: Allergies ranolazine [From Ranexa] Adverse Reaction (Intermediate, Verified 11/24/19 23:06) wake up at night feeling like choking ciprofloxacin [From Cipro] Adverse Reaction (Verified 11/24/19 23:06) Vomiting ciprofloxacin HCl [From Cipro] Adverse Reaction (Verified 11/24/19 23:06) Vomiting metronidazole [From Flagyl] Adverse Reaction (Verified 11/24/19 23:06) Vomiting morphine Adverse Reaction (Verified 11/24/19 23:06) after 2-3 days I turn into a monster ofloxacin [From Floxin] Adverse Reaction (Verified 11/24/19 23:06) Vomiting Primary Care Physician: Kelley Tolbert MD [Primary Care Provider] - Prior records reviewed: Yes Past Medical History: - - See problem list Surgical History: cholecystectomy, coronary bypass surgery, - - cholecystectomy, appendectomy, H&N surgery for tonsillar cancer, bilat carotid stenting, gastric bypass, kidney stone removal Smoking Status: Former smoker Alcohol: None Drugs: None - Family History Paternal Family History: Family History (Last Reviewed 07/17/19 @ 11:35 by GALEN Flood) Mother CAD (coronary artery disease) Lung cancer Father Cancer Brother Diabetes Hypertension Alcoholism Family History: Reports: - - esophageal cancer Maternal Family History: Family History (Last Reviewed 07/17/19 @ 11:35 by GALEN Flood) Mother CAD (coronary artery disease) Lung cancer Father Cancer Brother Diabetes Hypertension Alcoholism Family History: Reports: No pertinent history Review of Systems General: Denies: Chills, Fever, Sweats Eyes: Denies: Visual changes - bilaterally, Diplopia ENT: Denies: Rhinorrhea, Sore throat Cardiovascular: Denies: Chest pain, Palpitations Respiratory: Denies: Dyspnea, Cough, Dyspnea on exertion Gastrointestinal: Denies: Abdominal pain, Nausea, Vomiting, Diarrhea, Melena, Hematochezia Genitourinary: Denies: Dysuria, Hematuria, Frequency Musculoskeletal: Denies: Back pain, Extremity Pain Skin: Denies: Rash, Wounds Neurological: Denies: Headache, Weakness, Numbness Physical Exam Vital Signs/Narrative: Vital Signs Temp Pulse Resp BP Pulse Ox 11/24/19 23:02 98.1 F 85 18 125/90 H 94 General: Well nourished, Well developed, No Acute Distress Head: Normocephalic, Atraumatic Eyes: Perrl, EOMI ENT: Moist mucous membranes, No rhinorrhea Neck: Supple, Nontender Cardiovascular: Regular rate, Regular rhythm, No murmurs Respiratory: No distress, CTA bilaterally, Chest nontender Abdomen: Soft, Nontender, Nondistended, Normal bowel sounds Back: Nontender, Normal Inspection Extremities: Nontender, No edema Skin: Normal color, No rash Neurological: Alert, Oriented x3, Cranial nerves II-XII grossly intact, Normal Strength, Normal Sensation Psychological: Normal affect, Normal Mood Diagnostic/Tx/Re-eval - Medical Decision Making Lab work and EKG obtained. EKG shows normal sinus rhythm with no acute ischemia or arrhythmia. Lab work shows a mild elevation in his creatinine at 1.7. I suspect this is mild dehydration. Patient given a liter IV fluids. Urinalysis shows nothing acute. No ketones in the urine. No infection in the urine. CBC shows nothing acute. At this time I feel the patient can be discharged home. He is reassured. I do not think he has coronavirus. He will follow-up as an outpatient. Encouraged to drink plenty of fluids ED Disposition - Plan for ED Patient: Disposition: Home or Assisted Living Diagnosis: Fatigue, Dehydration Instructions: ED Dehydration Adult Referrals: Kelley Tolbert MD [Primary Care Provider] -
[2019-11-24 23:41] LABS: Absolute Lymphocyte Count 1.23 X10^3/uL (0.83-4.51); Absolute Neutrophil Count 4.4 X10^3/uL (2.0-7.7); Basophil# 0.05 X10^3/uL; Basophil% 0.7 % (0-1); Eosinophil# 0.12 X10^3/uL; Eosinophils% 1.7 % (0-5); Hematocrit 43.3 % (40-54); Hemoglobin 14.1 g/dL (13.0-16.5); Lymphocyte # 1.23 X10^3/ul (4.0); Lymphocyte % 17.9 % (19-41); Mean Corp Hgb Conc 32.6 g/dL (32-36); Mean Corpuscular Hgb 33.3 pg (27.0-32.0); Mean Corpuscular Volume 102.1 fL (80-94); Mean Platelet Vol. 9.8 fl (6.2-12.0); Monocyte# 1.03 X10^3/uL; NRBC Flagged by Analyzer 0 % (0-5); Neutrophil # 4.41 X10^3/uL (2.7-7.7); Neutrophil % 64.4 % (47-70); Platelet Count 171 K/mm3 (150-450); RBC Distribution Width CV 13.4 % (11.6-14.6); Red Blood Count 4.24 M/mm3 (4.6-6.2); White Blood Count 6.9 K/mm3 (4.4-11.0)
[2019-11-24 23:54] LABS: Anion Gap 7 (5-15); BUN 34 mg/dL (7-18); Calcium,Total 9.3 mg/dL (8.5-10.1); Chloride 107 mmol/L (98-107); EST Glomerular Filtration Rate 43 mL/min (>60); Est Glom Filt Rate - Afr Amer 52 mL/min (>60); Estimated Creatinine Clearance 46.28 ml/min; Glucose 116 mg/dL (74-106); Potassium 4.2 mmol/L (3.5-5.1); Sodium Level 139 mmol/L (136-145)
[2019-11-25 00:06] LABS: Bacteria 0 SEEN /hpf (None Seen); Mucous, Urine 0 SEEN /hpf (<or=2+); Red Blood Cells-Urine 0 SEEN /hpf (0-5); White Blood Cells 0 SEEN /hpf (0-5)
[2019-11-25] MEDS: 0.9% Normal Saline 1,000 ML 1000 ML IV (00:10)
[2019-11-25 00:12] LABS: Color, Urine Yellow (Yellow); Glucose, Dipstick Normal (Normal); Ketone-Dipstick Negative (Negative); Leukocyte Esterase-Dipstick Negative /ul (Negative); Nitrite-Dipstick Negative (Negative); Occult Blood-Urine Negative /ul (Negative); Protein-Dipstick 15 mg/dl (Negative); Urine Bilirubin Dipstick Negative (Negative); Urine Clarity Sl. Cloudy (Clear); Urine Urobilinogen Normal (Normal)
[2019-11-25 00:26] LABS: Squamous Epithelial Cells - UA 0-5 SEEN /hpf (0-5)
[2019-11-25 00:50] VITALS: BP 148/97; PULSE 80; RESP 16; O2SAT 98
== END 2019-11-25 01:06 | disposition home or self-care (01) ==
PROVIDERS: Emergency Provider Emergency Medicine; PCP Internal Medicine
DX: R53.83 Other fatigue (principal); E86.0 Dehydration; I11.0 Hypertensive heart disease with heart failure; I50.22 Chronic systolic (congestive) heart failure; I25.810 Atherosclerosis of coronary artery bypass graft(s) without angina pectoris; I25.2 Old myocardial infarction; E78.5 Hyperlipidemia, unspecified; I65.23 Occlusion and stenosis of bilateral carotid arteries; I25.5 Ischemic cardiomyopathy; Z86.73 Personal history of transient ischemic attack (TIA), and cerebral infarction without residual deficits; Z85.818 Personal history of malignant neoplasm of other sites of lip, oral cavity, and pharynx; Z87.01 Personal history of pneumonia (recurrent); Z98.84 Bariatric surgery status; Z79.82 Long term (current) use of aspirin; Z79.02 Long term (current) use of antithrombotics/antiplatelets; Z79.899 Other long term (current) drug therapy; Z87.891 Personal history of nicotine dependence
CPT/HCPCS: 80048; 81001; 85025; 93005; 96360; 99285; J7030; A4216

== ENCOUNTER 2020-01-02 09:58 | Emergency (ER) | payer MEDICARE, MEDICAID, SELFPAY ==
[2020-01-02] VITALS (7 sets, daily range): BP systolic 88–141; BP diastolic 61–113; PULSE 72–88; RESP 16–23; TEMP 36.6–36.7; O2SAT 92–94; BMI 29.7
--- NOTE | 2020-01-02 10:09 | RAD_ITS ---
STUDY: X-RAY CHEST REASON FOR EXAM: Male, 69 years old. WEAKNESS TECHNIQUE: 1 view COMPARISON: Prior chest of December 28, 2019, December 24, 2019 FINDINGS: Lung haines are well expanded with continued improvement in the upper and lower infiltrates on the right. No additional acute findings or changes. Normal size heart. Status post prior midline sternotomy. Normal visualized pulmonary arteries. Normal visualized aortic arch and descending thoracic aorta. Normal visualized thoracic spine. Normal visualized ribs, clavicles, and shoulders. There is no demonstrated abnormality of the visualized soft tissue structures of the upper abdomen. Surgical phyllis right side of the neck. RAD/Chest 1 View (Portable) IMPRESSION: Continue improvement in the right upper and right lower lobe infiltrates from prior exams. No additional acute cardiopulmonary findings or changes. Electronically Signed: Kasia Mera MD at 11:02 EDT , Service support ,
--- NOTE | 2020-01-02 10:09 | EKG12_ITS ---
Test Reason : SOB Blood Pressure : / mmHG Vent. Rate : 083 BPM Atrial Rate : 083 BPM P-R Int : 162 ms QRS Dur : 100 ms QT Int : 364 ms P-R-T Axes : 065 073 112 degrees QTc Int : 427 ms Normal sinus rhythm Normal ECG Confirmed by DELFINA MCLAUGHLIN MD ([id number]), editor sound BRYANT TOLENTINO ([id number]) on 01/05/2020 1:34:33 PM Referred By: BB Confirmed By:DELFINA MCLAUGHLIN MD
[2020-01-02] MEDS: 0.9% Normal Saline 1,000 ML 150 ML IV (10:16)
--- NOTE | 2020-01-02 10:19 | ED.DCSUM_ITS ---
History of Present Illness Chief Complaint: Weakness Informant: Patient Onset: Today - 4 hrs Context: - - Upon waking up Timing: Continuous Quality: Malaise, weak all over Current Severity: Severe Maximum Severity: Severe Worsened by: Nothing Relieved by: Nothing Associated Symptoms: Myalgias Narrative: Patient states he is feeling badly this morning. He has no other focal symptoms and when I asked him about dyspnea, he denies having any trouble breathing. He does have COPD, he uses oxygen when he needs it, and did not feel like he needed at this morning. He has no chest or abdominal discomfort, no other GI symptoms, he has some nonproductive coughing that has been present all spring that he associates with seasonal allergies annually. He denies any significant nasal congestion. He states he had pneumonia in September which was 3-4 months ago, and he states he feels like he never fully recovered, and does feel tired but this morning he was so weak that he was unable to walk safely. He lives at home with his . He presents by EMS. Also states he chronically has urinary frequency and nocturia. He admits he has an enlarged prostate. Denies dysuria or hematuria. 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 angina pectoris Status: Chronic (3) Bilateral carotid artery stenosis Status: Chronic Comment: Bilateral carotid artery stenting 2017 (4) Chronic systolic (congestive) heart failure Status: Chronic (5) Essential hypertension Status: Chronic (6) History of throat cancer Status: Chronic (7) Hyperlipidemia Status: Chronic (8) Ischemic cardiomyopathy Status: Chronic (9) CVA (cerebral vascular accident) Status: Resolved Comment: 3 mm foci of restricted diffusion in the right frontal lobe periventricular white matter and right occipital lobe subcortical white matter, consistent with small acute infarcts. (10) COPD (chronic obstructive pulmonary disease) Status: Chronic Past Medical History - Allergies and Home Meds Allergies/Adverse Reactions: Allergies ranolazine [From Ranexa] Adverse Reaction (Intermediate, Verified 11/24/19 23:06) wake up at night feeling like choking ciprofloxacin [From Cipro] Adverse Reaction (Verified 11/24/19 23:06) Vomiting ciprofloxacin HCl [From Cipro] Adverse Reaction (Verified 11/24/19 23:06) Vomiting metronidazole [From Flagyl] Adverse Reaction (Verified 11/24/19 23:06) Vomiting morphine Adverse Reaction (Verified 11/24/19 23:06) after 2-3 days I turn into a monster ofloxacin [From Floxin] Adverse Reaction (Verified 11/24/19 23:06) Vomiting Primary Care Physician: Kelley Tolbert MD [Primary Care Provider] - Surgical History: cholecystectomy, coronary bypass surgery, - - cholecystectomy, appendectomy, H&N surgery for tonsillar cancer, bilat carotid stenting, gastric bypass, kidney stone removal Lives: Spouse/ Significant Other Smoking Status: Former smoker - Family History Paternal Family History: Family History (Last Reviewed 07/17/19 @ 11:35 by GALEN Flood) Mother CAD (coronary artery disease) Lung cancer Father Cancer Brother Diabetes Hypertension Alcoholism Family History: Reports: - - esophageal cancer Maternal Family History: Family History (Last Reviewed 07/17/19 @ 11:35 by GALEN Flood) Mother CAD (coronary artery disease) Lung cancer Father Cancer Brother Diabetes Hypertension Alcoholism Family History: Reports: No pertinent history Review of Systems General: Reports: Malaise. Denies: Chills, Fever, Sweats Eyes: Denies: Visual changes - bilaterally, Diplopia ENT: Denies: Rhinorrhea, Sore throat Cardiovascular: Denies: Chest pain, Palpitations Respiratory: Reports: Cough. Denies: Dyspnea, Sputum, Dyspnea on exertion Gastrointestinal: Denies: Abdominal pain, Nausea, Vomiting, Diarrhea, Melena, Hematochezia Genitourinary: Reports: Frequency. Denies: Dysuria, Hematuria Musculoskeletal: Reports: Myalgias. Denies: Neck pain, Back pain, Swelling, Extremity Pain Skin: Denies: Rash, Wounds Neurological: Denies: Headache, Weakness - Nothing focal, Numbness Physical Exam Vital Signs/Narrative: Vital Signs Temp Pulse Resp BP Pulse Ox 01/02/20 09:58 98.1 F 88 16 141/113 H 93 Inital Vital Signs reviewed: Yes General: Well nourished, Well developed, No Acute Distress Head: Normocephalic, Atraumatic Eyes: Perrl, EOMI ENT: Moist mucous membranes, No rhinorrhea, TM's clear, - - Posterior oropharynx clear. Edentulous. Gingiva normal. No trismus. Neck: Supple, Nontender, No lymphadenopathy, No JVD Cardiovascular: Regular rate, Regular rhythm, No murmurs, Normal S1, Normal S2. Negative for: Tachycardia Respiratory: No distress, CTA bilaterally, Chest nontender, Diminished - Throughout, symmetrically Abdomen: Soft, Nontender, Nondistended, Normal bowel sounds Back: Nontender, Normal Inspection Extremities: Nontender, No edema. Negative for: Calf Tenderness Skin: Normal color, No rash, No Trauma Neurological: Alert, Oriented x3, Cranial nerves II-XII grossly intact, Normal Sensation, Weakness - Symmetrically 4+/5 throughout all 4 extremities Psychological: Normal affect, Normal Mood Diagnostic/Tx/Re-eval Impressions Chest X-Ray 01/02/20 10:09 IMPRESSION: Continue improvement in the right upper and right lower lobe infiltrates from prior exams. No additional acute cardiopulmonary findings or changes. Electronically Signed: Kasia Mera MD at 11:02 EDT , Service support , 01/02/20 10:09 Chest 1 View (Portable) [RAD] Stat Laboratory Results 01/02/20 01/02/20 01/02/20 10:15 10:15 10:15 WBC 19.6 H RBC 4.06 L Hgb 13.4 Hct 41.9 MCV 103.2 H MCH 33.0 H MCHC 32.0 RDW Std Deviation 52.1 H RDW Coeff of Bharath 13.6 Plt Count 180 MPV 10.2 Immature Gran % (Auto) 0.600 Neut % (Auto) 88.5 H Lymph % (Auto) 3.1 L [place] % (Auto) 7.3 Eos % (Auto) 0.3 Baso % (Auto) 0.2 Absolute Neuts (auto) 17.3 H Absolute Lymphs (auto) 0.60 L Nucleated RBC % 0 PT 12.7 INR 1.0 APTT 25.1 pH Bicarbonate Actual POC Total CO2 Base Excess O2 Saturation ABG pCO2 ABG pO2 Sodium 141 Potassium 4.3 Chloride 111 H Carbon Dioxide 26.0 Anion Gap 4 L BUN 33 H Creatinine 1.52 H Estim Creat Clear Calc 51.76 Est GFR (MDRD) Af Amer 59 L Est GFR (MDRD) Non-Af 49 L BUN/Creatinine Ratio 21.7 H Glucose 95 Lactic Acid Calcium 8.4 L Total Bilirubin 0.90 AST 20 ALT 15 L Alkaline Phosphatase 36 L Troponin I < 0.015 Total Protein 6.5 Albumin 3.1 L Globulin 3.4 Albumin/Globulin Ratio 0.9 Urine Color Urine Clarity Urine pH Ur Specific [place] Urine Protein Urine Glucose (UA) Urine Ketones Urine Occult Blood Urine Nitrite Urine Bilirubin Urine Urobilinogen Ur Leukocyte Esterase Urine RBC Urine WBC Ur Squamous Epith Cells Calcium Oxalate Crystal Amorphous Sediment Urine Bacteria Urine Mucus 01/02/20 01/02/20 01/02/20 10:15 10:41 11:55 WBC RBC Hgb Hct MCV MCH MCHC RDW Std Deviation RDW Coeff of Bharath Plt Count MPV Immature Gran % (Auto) Neut % (Auto) Lymph % (Auto) [place] % (Auto) Eos % (Auto) Baso % (Auto) Absolute Neuts (auto) Absolute Lymphs (auto) Nucleated RBC % PT INR APTT pH 7.40 Bicarbonate Actual 23.5 POC Total CO2 25 Base Excess -1 O2 Saturation 89 L ABG pCO2 38.4 ABG pO2 56 L Sodium Potassium Chloride Carbon Dioxide Anion Gap BUN Creatinine Estim Creat Clear Calc Est GFR (MDRD) Af Amer Est GFR (MDRD) Non-Af BUN/Creatinine Ratio Glucose Lactic Acid 1.5 Calcium Total Bilirubin AST ALT Alkaline Phosphatase Troponin I Total Protein Albumin Globulin Albumin/Globulin Ratio Urine Color Yellow Urine Clarity Clear Urine pH 6.0 Ur Specific [place] 1.010 Urine Protein Negative Urine Glucose (UA) Normal Urine Ketones Negative Urine Occult Blood Negative Urine Nitrite Negative Urine Bilirubin Negative Urine Urobilinogen Normal Ur Leukocyte Esterase Negative Urine RBC 0 SEEN Urine WBC 0 SEEN Ur Squamous Epith Cells 0 SEEN Calcium Oxalate Crystal 1+ Amorphous Sediment 1+ Urine Bacteria 0 SEEN Urine Mucus 0 SEEN - Rhythm Strip Rhythm Strip: Sinus Rhythm Rate: 83 Ectopy: None - EKG Initial EKG Interpretation: Sinus Rhythm, No Acute Injury Pattern - Medical Decision Making Patient has a significant leukocytosis. The rest of his work-up, however, appears fairly unremarkable. ABG shows no hypercapnia and a normal pH. He has some mild renal insufficiency that is actually improved compared with his last readings, his chest x-ray shows improvement compared with prior x-ray that he had at the end of October, without any acute new findings. Patient basically states that his cough is been very mild and persistent since he had pneumonia in September. He states today his cough is no worse, nonproductive, and although it is listed in the nursing triage notes, he denies having any dyspnea today or recently. He had no fever here. I offered admission, his blood pressure went down a little bit but without the chance to intervene, it basically came back up on its own. He did not have symptoms with that. He refuses to stay and really wants to go home. We discussed reasons to return. Although I think it is less likely with his leukocytosis, I obtained permission from the [facility] laboratory to test him for COVID-19, so that test is sent prior to him being discharged. Given his COPD and chest x-ray findings, which certainly could be chronic scarring and nothing acute at all, I will empirically cover him with Augmentin since he is allergic to fluoroquinolones. I discussed all this with him and he is comfortable with that plan and states he has an appointment with his doctor after the weekend. ED Disposition - Plan for ED Patient: Disposition: Home or Assisted Living Diagnosis: Malaise and fatigue, Chronic cough, Leukocytosis, COPD (chronic obstructive pulmonary disease) Instructions: ED Cough Chronic Uncertain Cause Adult, ED Weakness [facility] Prescriptions: Amox/Clavulanate Tablet [Augmentin Tablet] 875 mg PO Q12H #14 tab Transmission Status: Pending to [id number] Referrals: Kelley Tolbert MD [Primary Care Provider] - 2 Days
[2020-01-02 10:29] LABS: Absolute Neutrophil Count 17.3 X10^3/uL (2.0-7.7); Basophil# 0.03 X10^3/uL; Basophil% 0.2 % (0-1); Eosinophil# 0.06 X10^3/uL; Eosinophils% 0.3 % (0-5); Hematocrit 41.9 % (40-54); Hemoglobin 13.4 g/dL (13.0-16.5); Lymphocyte % 3.1 % (19-41); Mean Corpuscular Volume 103.2 fL (80-94); Mean Platelet Vol. 10.2 fl (6.2-12.0); Monocyte# 1.42 X10^3/uL; Monocyte% 7.3 % (0-10); NRBC Flagged by Analyzer 0 % (0-5); Neutrophil # 17.33 X10^3/uL (2.7-7.7); Neutrophil % 88.5 % (47-70); POSITIVE DIFFERENTIAL YES; Platelet Count 180 K/mm3 (150-450); RBC Distribution Width CV 13.6 % (11.6-14.6); RBC Distribution Width SD 52.1 fl (35.1-43.9); Red Blood Count 4.06 M/mm3 (4.6-6.2); White Blood Count 19.6 K/mm3 (4.4-11.0)
[2020-01-02 10:37] LABS: Partial Thromboplast Time 25.1 Seconds (24.1-36.2); Prothrombin Time (Protime)PT. 12.7 SECONDS (11.7-14.9)
[2020-01-02 11:05] LABS: Differential Indicated SCAN CRITERIA MET
[2020-01-02 11:06] LABS: ALB/GLOB Ratio 0.9 RATIO (0.9-2.4); AST(SGOT) 20 U/L (15-37); Alanine Aminotransfer ALT/SGPT 15 U/L (16-61); Albumin, Serum 3.1 g/dL (3.2-5.0); Alkaline Phosphatase 36 U/L (45-117); Anion Gap 4 (5-15); BUN 33 mg/dL (7-18); BUN/Creat Ratio 21.7 RATIO (10-20); Calcium,Total 8.4 mg/dL (8.5-10.1); Chloride 111 mmol/L (98-107); Creatinine, Serum 1.52 mg/dL (0.70-1.30); EST Glomerular Filtration Rate 49 mL/min (>60); Est Glom Filt Rate - Afr Amer 59 mL/min (>60); Estimated Creatinine Clearance 51.76 ml/min; Globulin 3.4 g/dL (2.2-4.2); Glucose 95 mg/dL (74-106); Lactic Acid 1.5 mmol/L (0.4-1.9); Potassium 4.3 mmol/L (3.5-5.1); Protein, Total 6.5 g/dL (6.4-8.2); Sodium Level 141 mmol/L (136-145)
--- NOTE | 2020-01-02 11:14 | NURSING ---
dr farrell notified of bp 80-90s. ordered to open fluids up.
[2020-01-02 12:04] LABS: Bacteria 0 SEEN /hpf (None Seen); Mucous, Urine 0 SEEN /hpf (<or=2+); Red Blood Cells-Urine 0 SEEN /hpf (0-5); Squamous Epithelial Cells - UA 0 SEEN /hpf (0-5); White Blood Cells 0 SEEN /hpf (0-5)
[2020-01-02 12:09] LABS: Color, Urine Yellow (Yellow); Glucose, Dipstick Normal (Normal); Ketone-Dipstick Negative (Negative); Leukocyte Esterase-Dipstick Negative /ul (Negative); Nitrite-Dipstick Negative (Negative); Occult Blood-Urine Negative /ul (Negative); Protein-Dipstick Negative (Negative); Urine Bilirubin Dipstick Negative (Negative); Urine Clarity Clear (Clear); Urine Urobilinogen Normal (Normal)
[2020-01-02 12:18] LABS: Amorphous Sediment 1+; Calcium Oxalate Crystals Ur 1+ /hpf (<or=2+)
[2020-01-02 12:30] LABS: Base Excess -1 mmol/L (-2 to +2); Bicarbonate 23.5 mmol/L (22-26); PO2 56 mmHG (75-100); SO2 89 % (95-99); Total Carbon Dioxide 25 mmol/L; pCO2 38.4 mmHg (35-45)
[2020-01-02] MEDS: Amox/Clavulanate 875 MG Tablet PO (13:20)
[2020-01-02 13:41] LABS: Blood Gas Specimen Type ART; O2 Delivery Device Room Air; SITE R RADIAL; Time Given 1036
== END 2020-01-02 13:45 | disposition home or self-care (01) ==
PROVIDERS: Emergency Provider Emergency Medicine; PCP Internal Medicine
DX: R53.81 Other malaise (principal); R53.83 Other fatigue; R05 Cough; D72.829 Elevated white blood cell count, unspecified; J44.9 Chronic obstructive pulmonary disease, unspecified; N28.9 Disorder of kidney and ureter, unspecified; N40.1 Benign prostatic hyperplasia with lower urinary tract symptoms; R35.0 Frequency of micturition; R35.1 Nocturia; I25.810 Atherosclerosis of coronary artery bypass graft(s) without angina pectoris; I11.0 Hypertensive heart disease with heart failure; I50.22 Chronic systolic (congestive) heart failure; I65.23 Occlusion and stenosis of bilateral carotid arteries; E78.5 Hyperlipidemia, unspecified; I25.5 Ischemic cardiomyopathy; Z86.73 Personal history of transient ischemic attack (TIA), and cerebral infarction without residual deficits; Z85.850 Personal history of malignant neoplasm of thyroid; Z79.02 Long term (current) use of antithrombotics/antiplatelets; Z79.82 Long term (current) use of aspirin; Z79.899 Other long term (current) drug therapy; Z87.891 Personal history of nicotine dependence
CPT/HCPCS: 36600; 71045; 80053; 81001; 82803; 83605; 84484; 85025; 85610; 85730; 87040; 87086; 87088; 87635; 93005; 96360; 96361; 99285; G2023; A4216; U0003; U0004

== ENCOUNTER → 2020-01-19 11:28 | Outpatient (CLI) | payer MEDICARE, MEDICAID, SELFPAY ==
[2020-01-19 10:24] VITALS: BMI 30.6
[2020-01-19 12:20] LABS: Absolute Lymphocyte Count 0.71 X10^3/uL (0.83-4.51); Absolute Neutrophil Count 14.4 X10^3/uL (2.0-7.7); Basophil# 0.02 X10^3/uL; Basophil% 0.1 % (0-1); Eosinophil# 0.01 X10^3/uL; Eosinophils% 0.1 % (0-5); Hemoglobin 14.2 g/dL (13.0-16.5); Lymphocyte # 0.71 X10^3/ul (4.0); Lymphocyte % 4.5 % (19-41); Mean Corp Hgb Conc 32.3 g/dL (32-36); Mean Corpuscular Hgb 32.7 pg (27.0-32.0); Mean Corpuscular Volume 101.4 fL (80-94); Mean Platelet Vol. 9.9 fl (6.2-12.0); Monocyte# 0.57 X10^3/uL; Monocyte% 3.6 % (0-10); NRBC Flagged by Analyzer 0 % (0-5); Neutrophil # 14.39 X10^3/uL (2.7-7.7); Neutrophil % 91.1 % (47-70); Platelet Count 237 K/mm3 (150-450); RBC Distribution Width CV 13.6 % (11.6-14.6); RBC Distribution Width SD 51.2 fl (35.1-43.9); Red Blood Count 4.34 M/mm3 (4.6-6.2); White Blood Count 15.8 K/mm3 (4.4-11.0)
[2020-01-19 12:57] LABS: BNP,B-Type NATRIURETIC PEPTIDE 249.7 pg/mL (0-100)
[2020-01-19 13:01] LABS: Vitamin D,25 Hydroxy 30.1 ng/mL
[2020-01-19 13:14] LABS: Anion Gap 7 (5-15); BUN 27 mg/dL (7-18); BUN/Creat Ratio 19.4 RATIO (10-20); Calcium,Total 9.4 mg/dL (8.5-10.1); Chloride 109 mmol/L (98-107); Creatinine, Serum 1.39 mg/dL (0.70-1.30); EST Glomerular Filtration Rate 54 mL/min (>60); Est Glom Filt Rate - Afr Amer 66 mL/min (>60); Glucose 110 mg/dL (74-106); Potassium 4.1 mmol/L (3.5-5.1); Sodium Level 141 mmol/L (136-145); Thyroid Stim Hormone (TSH) 1.06 uIU/mL (0.358-3.74)
== END ==
PROVIDERS: PCP Internal Medicine; Referring Provider Physician Assistant Medical; Visit Provider Physician Assistant Medical
DX: I11.0 Hypertensive heart disease with heart failure (principal); I50.22 Chronic systolic (congestive) heart failure; E55.9 Vitamin D deficiency, unspecified; R53.83 Other fatigue; I25.5 Ischemic cardiomyopathy; I25.10 Atherosclerotic heart disease of native coronary artery without angina pectoris; E78.00 Pure hypercholesterolemia, unspecified
CPT/HCPCS: 36415; 80048; 82306; 83880; 84443; 85025

== ENCOUNTER 2020-03-17 09:00 | Emergency (ER) | payer MEDICARE, MEDICAID, SELFPAY ==
[2020-01-19 10:24] VITALS: BMI 30.6
[2020-03-17 09:02] VITALS: BP 143/95; PULSE 98; RESP 20; TEMP 36.1; O2SAT 93; BMI 31.1
--- NOTE | 2020-03-17 09:06 | ED.DCSUM_ITS ---
History of Present Illness Chief Complaint: General Illness Informant: Patient Narrative: 69-year-old male presenting with abdominal pain. Patient states initially 2 days ago he was eating well and did not have pain. Yesterday he states he could not eat due to nausea and pain. Patient describes it as left-sided in the upper and lower quadrants. He states he has had gastric bypass, partial bowel resection, 2 PEG tubes, cholecystectomy, appendectomy. Patient states he is never had pain like this. He states that 1 of his PEG tube sites has a tract to the stomach the external abdomen. He states his PEG tube was removed about 8 years ago. This is a chronic issue that comes and goes. He states he normally takes Protonix and Carafate and this helps his stomach pain. Dates that if he takes his Carafate he usually does not have any drainage or hissing from his abdominal site. He has been out for a week he went to the pharmacy to refill it and they could not refill it. He states that now this tract is hissing and draining. He has had this in the past. He states he is having bowel movements but he is unable to eat secondary to pain. He denies any urinary complaints. He has not had any fever but does feel generally weaker than usual. Patient is on Plavix but denies black or bloody stools. Patient does state that he has aches and pains all over. He also states that he has these chronically and there is nothing new about them. He states that he lost his sense of taste after his throat surgery and there is no acute change in this. - Past Medical History (1) Ischemic cardiomyopathy Status: Chronic (2) Chronic systolic (congestive) heart failure Status: Chronic (3) Essential hypertension Status: Chronic (4) Hyperlipidemia Status: Chronic (5) Bilateral carotid artery stenosis Status: Chronic Comment: Bilateral carotid artery stenting 2018 (6) History of throat cancer Status: Chronic Past Medical History - Allergies and Home Meds Allergies/Adverse Reactions: Allergies ranolazine [From Ranexa] Adverse Reaction (Intermediate, Verified 03/17/20 09:01) wake up at night feeling like choking ciprofloxacin [From Cipro] Adverse Reaction (Verified 03/17/20 09:01) Vomiting ciprofloxacin HCl [From Cipro] Adverse Reaction (Verified 03/17/20 09:01) Vomiting metronidazole [From Flagyl] Adverse Reaction (Verified 03/17/20 09:01) Vomiting morphine Adverse Reaction (Verified 03/17/20 09:01) after 2-3 days I turn into a monster ofloxacin [From Floxin] Adverse Reaction (Verified 03/17/20 09:01) Vomiting Primary Care Physician: Kelley Tolbert MD [Primary Care Provider] - Prior records reviewed: Yes Surgical History: cholecystectomy, coronary bypass surgery, - - cholecystectomy, appendectomy, H&N surgery for tonsillar cancer, bilat carotid stenting, gastric bypass, kidney stone removal Smoking Status: Former smoker - Family History Paternal Family History: Family History (Last Reviewed 01/19/20 @ 10:55 by GALEN Flood) Mother CAD (coronary artery disease) Lung cancer Father Cancer Brother Diabetes Hypertension Alcoholism Family History: Reports: - - esophageal cancer Maternal Family History: Family History (Last Reviewed 01/19/20 @ 10:55 by GALEN Flood) Mother CAD (coronary artery disease) Lung cancer Father Cancer Brother Diabetes Hypertension Alcoholism Family History: Reports: No pertinent history Review of Systems General: Reports: Malaise. Denies: Chills, Fever, Sweats Eyes: Denies: Visual changes - bilaterally, Diplopia ENT: Denies: Rhinorrhea, Sore throat Cardiovascular: Denies: Chest pain, Palpitations Respiratory: Denies: Dyspnea, Cough, Dyspnea on exertion Gastrointestinal: Reports: Abdominal pain, Nausea. Denies: Vomiting, Diarrhea, Melena, Hematochezia Genitourinary: Denies: Dysuria, Hematuria, Frequency Musculoskeletal: Reports: Myalgias. Denies: Back pain, Extremity Pain Skin: Denies: Rash, Wounds Neurological: Denies: Headache, Weakness, Numbness Physical Exam Vital Signs/Narrative: Vital Signs Temp Pulse Resp BP Pulse Ox 03/17/20 09:02 97 F L 98 20 H 143/95 H 93 Inital Vital Signs reviewed: Yes General: Well nourished, No Acute Distress Head: Normocephalic, Atraumatic Eyes: Perrl, EOMI ENT: Moist mucous membranes, No rhinorrhea Neck: Supple, Nontender Cardiovascular: Regular rate, Regular rhythm Respiratory: No distress, CTA bilaterally, Chest nontender Abdomen: Soft, Nontender, Tender - To palpation in the upper left side of the abdomen and left lower quadrant. Abdomen is non-peritoneal. Has multiple surgical scars. There is a surgical site in the central upper abdomen consistent with previous PEG tube. There is no drainage from the site,, however there is some crusting over this area. Back: Nontender, Normal Inspection Extremities: Nontender, No edema Skin: Normal color, No rash Neurological: Alert, Oriented x3 Psychological: Normal affect, Normal Mood Diagnostic/Tx/Re-eval Clinical Impression(s) from Imaging Studies Abdomen/Pelvis CT 03/17/20 09:18 IMPRESSION: Stable examination. Midline ventral hernia containing nondilated small bowel with a cranial neck of 4.9 cm. Electronically Signed: Mckay Blackwood, at 12:20 EDT , Service support , Laboratory Data 03/17/20 03/17/20 03/17/20 10:00 10:00 12:10 WBC 10.9 RBC 5.15 Hgb 17.0 H Hct 51.5 MCV 100.0 H MCH 33.0 H MCHC 33.0 RDW Std Deviation 51.0 H RDW Coeff of Bharath 13.7 Plt Count 190 MPV 9.9 Immature Gran % (Auto) 0.700 Neut % (Auto) 72.6 H Lymph % (Auto) 15.5 L [place] % (Auto) 10.2 H Eos % (Auto) 0.6 Baso % (Auto) 0.4 Absolute Neuts (auto) 7.9 H Absolute Lymphs (auto) 1.69 Nucleated RBC % 0 Sodium 134 L Potassium 4.0 Chloride 101 Carbon Dioxide 22.0 Anion Gap 11 BUN 32 H Creatinine 1.55 H Estim Creat Clear Calc 50.76 Est GFR (MDRD) Af Amer 58 L Est GFR (MDRD) Non-Af 48 L BUN/Creatinine Ratio 20.6 H Glucose 67 L Calcium 9.5 Total Bilirubin 1.30 H AST 22 ALT 28 Alkaline Phosphatase 62 Total Protein 8.2 Albumin 4.0 Globulin 4.2 Albumin/Globulin Ratio 1.0 Lipase 110 Urine Color Yellow Urine Clarity Clear Urine pH 5.0 Ur Specific [place] 1.015 Urine Protein 30 H Urine Glucose (UA) Normal Urine Ketones 50 H Urine Occult Blood Negative Urine Nitrite Negative Urine Bilirubin Negative Urine Urobilinogen Normal Ur Leukocyte Esterase Negative Urine RBC 0 SEEN Urine WBC 0 SEEN Ur Squamous Epith Cells 0 SEEN Urine Bacteria 0 SEEN Urine Mucus 0 SEEN - Medical Decision Making Patient presented with abdominal pain which he states was very bad and left upper/lower areas of his abdomen. Patient is had multiple surgeries therefore I did CT his abdomen pelvis with p.o. and IV contrast. There appears to be no acute process. There is a ventral hernia which is not incarcerated or strangulated and is known to the patient. Patient's pain was controlled with 1 dose of morphine. Lab work up is markable remarkable. Patient requests Carafate for home as he states that this helps his pain. This was provided for him. He is given return precautions. Patient is stable for discharge at this time. Impression: 1. Abdominal pain ED Disposition - Plan for ED Patient: Disposition: Home or Assisted Living Instructions: Abdominal Pain Referrals: Kelley Tolbert MD [Primary Care Provider] -
--- NOTE | 2020-03-17 09:18 | CT_ITS ---
STUDY: CT ABDOMEN AND PELVIS WITH CONTRAST REASON FOR EXAM: Male, 69 years old. PT STATED LUQ ABDOM PAIN, HX OF right neck LN resection, 4 vessel CABG, cholecystectomy, AAA repair, gastric bypass with revision and gastric banding, HERNIA RADIATION DOSAGE (If Supplied By Facility): CTDIvol = ( 15.44 ) mGy, DLP = ( 1067.86 ) mGycm TECHNIQUE: Transaxial images were obtained from the dome of the diaphragm to the symphysis pubis with oral contrast. Oral and amp; IV Gastrografin and amp; 100mL Isovue-300 was administered. Sagittal and coronal images were reconstructed. Individualized dose optimization techniques were used for this CT. COMPARISON: None. FINDINGS: The visualized lung bases are unremarkable. Prior CABG. Coronary artery calcifications. Dual-chamber pacemaker is seen. Stable 8 mm cyst in the right lobe of the liver. Fatty liver. There are surgical clips in the gallbladder fossa consistent with a prior cholecystectomy. Normal spleen. Normal pancreas. Normal bilateral adrenal glands. 3.4 cm cyst in the lower lateral pole of the right kidney. Normal left kidney. 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 Normal small intestine. There are scattered colonic diverticula consistent with diverticulosis. The appendix is visualized and appears normal. There is diffuse atherosclerotic calcification of the abdominal aorta, without a demonstrated aneurysm. Normal inferior vena cava. Normal retroperitoneum. Normal urinary bladder. There is evidence of a ventral hernia containing nondilated small bowel loops. The neck of the hernia measures 4.9 cm. There are degenerative changes of the visualized lumbar spine. CT/Abdomen/Pelvis WITH Contrast IMPRESSION: Stable examination. Midline ventral hernia containing nondilated small bowel with a cranial neck of 4.9 cm. Electronically Signed: Mckay Blackwood, at 12:20 EDT , Service support ,
[2020-03-17] MEDS: Morphine 4 MG/ML Syringe IV (10:01)
[2020-03-17 10:10] LABS: Absolute Lymphocyte Count 1.69 X10^3/uL (0.83-4.51); Absolute Neutrophil Count 7.9 X10^3/uL (2.0-7.7); Basophil# 0.04 X10^3/uL; Basophil% 0.4 % (0-1); Eosinophil# 0.07 X10^3/uL; Eosinophils% 0.6 % (0-5); Hematocrit 51.5 % (40-54); Lymphocyte # 1.69 X10^3/ul (4.0); Lymphocyte % 15.5 % (19-41); Mean Platelet Vol. 9.9 fl (6.2-12.0); Monocyte# 1.11 X10^3/uL; Monocyte% 10.2 % (0-10); NRBC Flagged by Analyzer 0 % (0-5); Neutrophil # 7.89 X10^3/uL (2.7-7.7); Neutrophil % 72.6 % (47-70); Platelet Count 190 K/mm3 (150-450); RBC Distribution Width CV 13.7 % (11.6-14.6); Red Blood Count 5.15 M/mm3 (4.6-6.2); White Blood Count 10.9 K/mm3 (4.4-11.0)
[2020-03-17] MEDS: Ondansetron 4 MG/2 ML Vial IV (10:14)
[2020-03-17 10:25] LABS: AST(SGOT) 22 U/L (15-37); Alanine Aminotransfer ALT/SGPT 28 U/L (16-61); Alkaline Phosphatase 62 U/L (45-117); Anion Gap 11 (5-15); BUN 32 mg/dL (7-18); BUN/Creat Ratio 20.6 RATIO (10-20); Calcium,Total 9.5 mg/dL (8.5-10.1); Chloride 101 mmol/L (98-107); Creatinine, Serum 1.55 mg/dL (0.70-1.30); EST Glomerular Filtration Rate 48 mL/min (>60); Est Glom Filt Rate - Afr Amer 58 mL/min (>60); Estimated Creatinine Clearance 50.76 ml/min; Globulin 4.2 g/dL (2.2-4.2); Glucose 67 mg/dL (74-106); Lipase 110 U/L (73-393); Protein, Total 8.2 g/dL (6.4-8.2); Sodium Level 134 mmol/L (136-145)
[2020-03-17 11:00] VITALS: BP 187/109; PULSE 74; RESP 15; O2SAT 98
[2020-03-17 12:24] LABS: Bacteria 0 SEEN /hpf (None Seen); Mucous, Urine 0 SEEN /hpf (<or=2+); Red Blood Cells-Urine 0 SEEN /hpf (0-5); Squamous Epithelial Cells - UA 0 SEEN /hpf (0-5); White Blood Cells 0 SEEN /hpf (0-5)
[2020-03-17 12:25] LABS: Color, Urine Yellow (Yellow); Glucose, Dipstick Normal (Normal); Ketone-Dipstick 50 mg/dl (Negative); Leukocyte Esterase-Dipstick Negative /ul (Negative); Nitrite-Dipstick Negative (Negative); Occult Blood-Urine Negative /ul (Negative); Protein-Dipstick 30 mg/dl (Negative); Specific Gravity, Urine 1.015 (1.002-1.030); Urine Bilirubin Dipstick Negative (Negative); Urine Clarity Clear (Clear); Urine Urobilinogen Normal (Normal)
[2020-03-17 12:29] VITALS: BP 133/78; PULSE 92; RESP 16; TEMP 36.4; O2SAT 96
[2020-03-17 13:12] VITALS: BP 112/99; PULSE 88
== END 2020-03-17 13:16 | disposition home or self-care (01) ==
PROVIDERS: Emergency Provider Student in an Organized Health Care Education/Training Program; PCP Internal Medicine
DX: R10.32 Left lower quadrant pain (principal); R10.12 Left upper quadrant pain; R11.0 Nausea; K43.9 Ventral hernia without obstruction or gangrene; I25.5 Ischemic cardiomyopathy; I11.0 Hypertensive heart disease with heart failure; I50.22 Chronic systolic (congestive) heart failure; I65.23 Occlusion and stenosis of bilateral carotid arteries; E78.5 Hyperlipidemia, unspecified; Z85.818 Personal history of malignant neoplasm of other sites of lip, oral cavity, and pharynx; Z95.1 Presence of aortocoronary bypass graft; Z98.84 Bariatric surgery status; Z90.49 Acquired absence of other specified parts of digestive tract; Z79.02 Long term (current) use of antithrombotics/antiplatelets; Z79.82 Long term (current) use of aspirin; Z79.899 Other long term (current) drug therapy; Z87.891 Personal history of nicotine dependence
CPT/HCPCS: 74177; 80053; 81001; 83690; 85025; 96374; 96375; 99283; Q9967; A4216; J2405

== ENCOUNTER 2020-03-26 18:25 | Emergency (ER) | payer MEDICARE, MEDICAID, SELFPAY ==
[2020-03-26 18:25] VITALS: BP 89/44; PULSE 104; RESP 16; TEMP 37.1; O2SAT 98; BMI 30.6
--- NOTE | 2020-03-26 18:53 | ED.VISSUMM ---
- ER Visit Summary Date of Service: 03/26/20 Chief Complaint: General weakness History of Present Illness: The patient is a 69 M who presents with weakness and dizziness that has been getting worse over the past 10 days. Patient states he feels lightheaded but also feels a spinning sensation. Patient states he feels like he is dehydrated. Patient states he gets dehydrated easily. Patient states he has been trying to drink sips of ice water and 7-Up. Patient admits to some nausea and vomiting. Patient admits to diffuse abdominal pain. Patient also admits to some mild chest pain. Patient denies any fevers or chills. Patient states he did have a COVID test approximately 1 month ago and was negative. Physical Examination: Vital signs are stable except for a low blood pressure of 89/44. Patient is afebrile. Patient is in no acute distress. Oral mucosa is pink and moist. Neck is supple. Trachea is midline. There is no JVD. Heart was regular and slightly tachycardic. Lungs showed decreased breath sounds in the left base. There is adequate respiratory effort. Abdomen is soft. Bowel sounds are normal. There is mild diffuse tenderness. There is no rebound or guarding noted. Extremities are intact. There are no motor or sensory deficits noted. There is no calf tenderness or edema. Cranial nerves II through XII are intact. There are no focal deficits noted. Test Results: CBC was normal. Basic metabolic profile showed a slightly elevated BUN of 23 and creatinine of 1.61. These were consistent with prior results. Urinalysis does not show any evidence of urinary tract infection. Lactate was normal. Chest x-ray shows a focal right upper lobe opacity medially. This was interpreted by the radiologist and reviewed by myself. Emergency Department Course and Treatment: Patient was given IV fluids. Patient felt much better after this. Patient wants to go home. Patient was given his first dose of Zithromax here. Patient was given a prescription for Zithromax. Patient was instructed to follow-up with his primary care physician in 5 to 7 days. Patient understood and was agreeable with the plan. All questions were answered. Disposition: Discharge home Impression: 1. Pneumonia 2. Mild dehydration This note was generated with [employer] software. It may contain incorrect words, spelling, and punctuation that were not noted in review of the chart prior to signing ED Disposition - Plan for ED Patient: Disposition: Home or Assisted Living Diagnosis: Pneumonia Instructions: ED PNEUMONITIS Adult Prescriptions: Azithromycin [Zithromax] 250 mg PO DAILY #4 tab Prescription Printed Referrals: Kelley Tolbert MD [Primary Care Provider] - 5-7 Days
[2020-03-26] MEDS: Ondansetron 4 MG/2 ML Vial IV (19:00)
[2020-03-26] MEDS: 0.9% Normal Saline 1,000 ML 1000 ML IV (19:00)
[2020-03-26 19:11] LABS: Absolute Lymphocyte Count 1.46 X10^3/uL (0.83-4.51); Absolute Neutrophil Count 6.3 X10^3/uL (2.0-7.7); Basophil# 0.07 X10^3/uL; Basophil% 0.8 % (0-1); Eosinophil# 0.14 X10^3/uL; Eosinophils% 1.5 % (0-5); Hematocrit 48.1 % (40-54); Hemoglobin 16.8 g/dL (13.0-16.5); Lymphocyte # 1.46 X10^3/ul (4.0); Lymphocyte % 16.2 % (19-41); Mean Corp Hgb Conc 34.9 g/dL (32-36); Mean Corpuscular Hgb 33.3 pg (27.0-32.0); Mean Corpuscular Volume 95.2 fL (80-94); Mean Platelet Vol. 10.9 fl (6.2-12.0); Monocyte# 1.08 X10^3/uL; Monocyte% 11.9 % (0-10); NRBC Flagged by Analyzer 0 % (0-5); Neutrophil # 6.25 X10^3/uL (2.7-7.7); Neutrophil % 69.2 % (47-70); Platelet Count 204 K/mm3 (150-450); RBC Distribution Width CV 13.2 % (11.6-14.6); Red Blood Count 5.05 M/mm3 (4.6-6.2)
--- NOTE | 2020-03-26 19:20 | RAD_ITS ---
STUDY: X-RAY CHEST REASON FOR EXAM: Male, 69 years old. SEVERE DEHYDRATION. NAUSEA, POOR APPETITE, NOT DRINKING, WEAK AND DIZZY TECHNIQUE: Frontal view COMPARISON: 01/02/2020. FINDINGS: Stable sternotomy wires with the top 2 wires fractured. The lungs are expanded. Focal right upper lobe opacity medially. Basilar interstitial prominence. Normal size heart. Normal mediastinum and becca. Normal visualized pulmonary arteries. Normal visualized aortic arch and descending thoracic aorta. Mild degenerative changes of the thoracic spine. Normal visualized ribs, clavicles, and shoulders. There is no demonstrated abnormality of the visualized soft tissue structures of the upper abdomen. RAD/Chest 1 View (Portable) IMPRESSION: Focal right upper lobe opacity medially. Basilar interstitial prominence. Electronically Signed: Negro George DO at 19:40 EDT Tel [phone], Service support ,
[2020-03-26 19:23] LABS: ALB/GLOB Ratio 0.9 RATIO (0.9-2.4); AST(SGOT) 33 U/L (15-37); Alanine Aminotransfer ALT/SGPT 33 U/L (16-61); Albumin, Serum 3.6 g/dL (3.2-5.0); Alkaline Phosphatase 63 U/L (45-117); Anion Gap 6 (5-15); BUN 23 mg/dL (7-18); BUN/Creat Ratio 14.3 RATIO (10-20); Calcium,Total 10.2 mg/dL (8.5-10.1); Chloride 102 mmol/L (98-107); Creatinine, Serum 1.61 mg/dL (0.70-1.30); EST Glomerular Filtration Rate 46 mL/min (>60); Est Glom Filt Rate - Afr Amer 55 mL/min (>60); Estimated Creatinine Clearance 48.87 ml/min; Globulin 3.9 g/dL (2.2-4.2); Glucose 120 mg/dL (74-106); Potassium 3.7 mmol/L (3.5-5.1); Protein, Total 7.5 g/dL (6.4-8.2); Sodium Level 136 mmol/L (136-145)
[2020-03-26 19:38] LABS: Color, Urine Yellow (Yellow); Glucose, Dipstick Normal (Normal); Ketone-Dipstick 15 mg/dl (Negative); Leukocyte Esterase-Dipstick Negative /ul (Negative); Nitrite-Dipstick Negative (Negative); Occult Blood-Urine 50 /ul (Negative); Protein-Dipstick 30 mg/dl (Negative); Urine Clarity Clear (Clear); Urine Urobilinogen 4 mg/dl (Normal)
[2020-03-26 19:40] LABS: Urine Bilirubin Dipstick 1 mg/dL (Negative)
[2020-03-26 19:44] LABS: Lactic Acid 1.5 mmol/L (0.4-1.9)
[2020-03-26 19:46] LABS: Bacteria 2+ /hpf (None Seen); Hyaline Cast 5-10 SEEN /lpf (0-5); Mucous, Urine 2+ /hpf (<or=2+); Red Blood Cells-Urine 5-10 SEEN /hpf (0-5); Squamous Epithelial Cells - UA 0-5 SEEN /hpf (0-5); White Blood Cells 0-5 SEEN /hpf (0-5)
[2020-03-26 20:33] VITALS: BP 114/102; PULSE 87; RESP 13; O2SAT 95
[2020-03-26] MEDS: Azithromycin 250 MG Tablet 500 MG PO (21:05)
[2020-03-26 21:07] VITALS: BP 131/82; PULSE 75; RESP 16; O2SAT 98
== END 2020-03-26 21:07 | disposition home or self-care (01) ==
PROVIDERS: Emergency Provider Emergency Medicine; PCP Internal Medicine
DX: J18.9 Pneumonia, unspecified organism (principal); E86.0 Dehydration
CPT/HCPCS: 71045; 80053; 81001; 83605; 85025; 96361; 96374; 99285; J7030; A4216; J2405

== ENCOUNTER 2021-03-30 08:34 | Observation (INO) | payer MEDICARE, MEDICAID, SELFPAY ==
[2021-03-30] VITALS (15 sets, daily range): BP systolic 118–146; BP diastolic 54–102; PULSE 78–109; RESP 11–24; TEMP 36.1–36.7; O2SAT 87–98; BMI 31.4; BMI 30.7
--- NOTE | 2021-03-30 08:53 | RAD_ITS ---
STUDY: X-RAY CHEST REASON FOR EXAM: Male, 70 years old. Cough and shortness of breath. History of pneumonia. TECHNIQUE: Single AP portable view of the chest. COMPARISON: Comparison is made with prior examination dated 03/26/2020. FINDINGS: EKG electrodes are seen. Since prior study, there has been improved aeration of the right upper lobe with mild residual right upper lobe infiltrate. There is no demonstrated pleural abnormality. Sternal cerclage wires and vascular clips are present from a prior sternotomy and coronary artery bypass graft procedure (CABG). Normal mediastinum and becca. Normal visualized pulmonary arteries. There is atherosclerotic tortuosity of the aortic arch and descending thoracic aorta. Normal visualized thoracic spine. Normal visualized ribs, clavicles, and shoulders. There is no demonstrated abnormality of the visualized soft tissue structures of the upper abdomen. RAD/Chest 1 View (Portable) IMPRESSION: Mild degree of residual infiltrate in the right upper lobe although there has been improvement as compared to prior study. Electronically Signed: Mckay Blackwood MD at 9:43 EDT , Service support ,
--- NOTE | 2021-03-30 08:53 | EKG12_ITS ---
Test Reason : CP Blood Pressure : / mmHG Vent. Rate : 103 BPM Atrial Rate : 103 BPM P-R Int : 160 ms QRS Dur : 104 ms QT Int : 354 ms P-R-T Axes : 034 051 068 degrees QTc Int : 463 ms Sinus tachycardia Poor R wave progression Inferior [place], age undetermined, cannot be excluded Confirmed by SONJA HANNA, ALTAF ([id number]), editor index MARCO AMBROSIO ([id number]) on 04/03/2021 10:24:00 AM Referred By: VIVIANA Confirmed By:ALTAF CASILLAS MD
[2021-03-30] MEDS: Aspirin 81 MG TAB.CHEW 162 MG PO (09:07)
[2021-03-30 09:10] LABS: Absolute Lymphocyte Count 1.42 X10^3/uL (0.83-4.51); Absolute Neutrophil Count 12.6 X10^3/uL (2.0-7.7); Basophil# 0.08 X10^3/uL; Basophil% 0.5 % (0-1); Eosinophil# 0.12 X10^3/uL; Eosinophils% 0.8 % (0-5); Hemoglobin 16.2 g/dL (13.0-16.5); Lymphocyte # 1.42 X10^3/ul (0.83-4.51); Lymphocyte % 9.3 % (19-41); Mean Corp Hgb Conc 34.5 g/dL (32-36); Mean Corpuscular Hgb 33.9 pg (27.0-32.0); Mean Corpuscular Volume 98.3 fL (80-94); Mean Platelet Vol. 9.7 fl (6.2-12.0); Monocyte# 1.09 X10^3/uL; Monocyte% 7.1 % (0-10); NRBC Flagged by Analyzer 0 % (0-5); Neutrophil # 12.57 X10^3/uL (2.7-7.7); Neutrophil % 81.8 % (47-70); Platelet Count 227 K/mm3 (150-450); RBC Distribution Width CV 12.8 % (11.6-14.6); RBC Distribution Width SD 46.1 fl (35.1-43.9); Red Blood Count 4.78 M/mm3 (4.6-6.2); White Blood Count 15.4 K/mm3 (4.4-11.0)
--- NOTE | 2021-03-30 09:19 | ED.VIS.DYS ---
HPI History of Present Illness Chief Complaint: Shortness of Breath Informant: patient Narrative Narrative: Patient presenting with transient chest pain starting 7 AM this morning on the left side. No radicular symptoms. Symptoms currently resolved. Her reported nonproductive cough also this morning. No fevers. Reports he has not felt well for the past year. He did get the Covid vaccination second shot in December. No Covid infections in the past. History of four-vessel CABG [address] Dunbar. States his last catheterization was 3 years ago. History of CHF and COPD no chronic oxygen however does state he has oxygen at home as needed. No recent travel, surgeries, or immobilizations. Denies vomiting diarrhea. Patient states he went for neurology appointment this morning at [facility] and was sent to the ED. Reported he was hypoxic in the 80s on arrival. [facility] Medical History (Updated 03/30/21 @ 10:[address] Moises Barry, DO) Acute exacerbation of CHF (congestive heart failure) Acute respiratory failure with hypoxia (10/2019) Adrenal insufficiency Atherosclerosis of coronary artery bypass graft without angina pectoris Atherosclerosis of [place] coronary artery of [place] heart without angina pectoris Bilateral carotid artery stenosis BPH (benign prostatic hyperplasia) Chronic diastolic (congestive) heart failure Chronic systolic (congestive) heart failure COPD (chronic obstructive pulmonary disease) CVA (cerebral vascular accident) (06/30/19) Depression Elevated troponin (10/2019) Essential hypertension GERD (gastroesophageal reflux disease) History of non-ST elevation myocardial infarction (NSTEMI) (10/24/19) History of throat cancer History of vertebral artery stenosis Hyperlipidemia Hypothyroidism Ischemic cardiomyopathy Non compliance w medication regimen Orthostatic hypotension Right lower lobe pneumonia (10/2019) Septic shock (10/2019) TIA (transient ischemic attack) (07/05/19) Tonsillar cancer Vertigo Home Medications clopidogrel 75 mg PO DAILY 10/12/15 [History Last Taken 06/29/19 08:00 75 mg] albuterol sulfate 90 mcg/actuation aerosol inhaler 2 puff INHALATION Q4H PRN g 05/05/19 [History Last Taken 06/29/19 22:00 2 puffs] aspirin 81 mg PO DAILY@0800 06/17/19 [History Last Taken 06/29/19 08:00 81 mg] guaifenesin 1,200 mg PO Q12H PRN 06/17/19 [History Last Taken 06/29/19 21:30 1200 mg] multivitamin with minerals 1 tab PO DAILY 06/17/19 [History Last Taken 06/29/19 21:30 1 tab] pantoprazole 40 mg PO DAILY 06/17/19 [History Last Taken 06/29/19 21:30 20 mg] meclizine 12.5 mg PO BID #60 tab 07/01/19 [Rx Last Taken Unknown] sertraline 100 mg tablet 50 mg PO DAILY tab 07/17/19 [History Last Taken Unknown] prednisone 5 mg PO DAILY 01/02/20 [History Last Taken Unknown] sucralfate 1 tab PO 4X/DAY 01/02/20 [History Last Taken Unknown] fluticasone propion-salmeterol 1 ea IH DAILY 03/17/20 [History Last Taken Unknown] azithromycin 250 mg PO DAILY #4 tab 03/26/20 [Rx Last Taken Unknown] carvedilol 3.125 mg tablet 3.125 mg PO ONCE #90 tab 10/18/20 [Rx Last Taken Unknown] ergocalciferol (vitamin D2) 1,250 mcg (50,000 unit) capsule 50,000 unit PO 2XW cap 10/18/20 [History Last Taken Unknown] fludrocortisone 0.1 mg tablet 0.1 mg PO TID PRN tab 10/18/20 [History Last Taken Unknown] levothyroxine 100 mcg tablet 100 mcg PO DAILY tab 10/18/20 [History Last Taken Unknown] potassium chloride 10 mEq tablet,extended release 20 meq PO DAILY tab 10/18/20 [History Last Taken Unknown] umeclidinium 62.5 mcg-vilanterol 25 mcg/actuation powdr for inhalation 1 inh INHALATION DAILY ea 10/18/20 [History Last Taken Unknown] Allergy/AdvReac Type Severity Reaction Status Date / Time ranolazine [From Ranexa] AdvReac Intermediate wake up Verified 10/18/20 09:12 at night feeling like choking ciprofloxacin [From Cipro] AdvReac Vomiting Verified 10/18/20 09:12 ciprofloxacin HCl AdvReac Vomiting Verified 10/18/20 09:12 [From Cipro] metronidazole [From Flagyl] AdvReac Vomiting Verified 10/18/20 09:12 morphine AdvReac after 2-3 Verified 10/18/20 09:12 days I turn into a monster ofloxacin [From Floxin] AdvReac Vomiting Verified 10/18/20 09:12 Family History Mother CAD (coronary artery disease) Lung cancer Father Cancer esophageal cancer Brother Diabetes Hypertension Alcoholism Surgical History H/O coronary artery bypass surgery (02/26/13) History of appendectomy History of cholecystectomy History of gastric bypass History of left common carotid artery stent placement (2018) History of left heart catheterization (06/18/19) History of right common carotid artery stent placement (2018) Social History Smoking Status: Never smoker alcohol intake: never substance use type: does not use caffeine: No what type of physical activity do you participate in: none seatbelt use: always do you feel safe at home: Yes ROS ROS ED Constitutional Constitutional ED: Denies chills, fever(s) or sweats Eyes Eyes: Denies change in vision ENT ENT ED: Denies dysphagia or sore throat Cardiovascular Cardiovascular: Reports chest pain; Denies leg edema, palpitations or racing heartbeat Respiratory/Chest Respiratory/Chest: Reports cough and dyspnea; Denies dyspnea on exertion Gastrointestinal Gastrointestinal: Denies abdominal pain, diarrhea, nausea or vomiting Genitourinary Genitourinary ED: Denies dysuria, hematuria or urinary frequency Musculoskeletal Musculoskeletal: Denies back pain, extremity pain or neck pain Integumentary Denies rash or wounds Neurologic Neurologic: Denies headache(s), paresthesias or weakness EXAM Physical Exam Const Vital Signs: 03/30/21 08:36 03/30/21 08:53 03/30/21 08:58 Temperature 97.0 F L Temperature Source Temporal Pulse Rate 109 H Respiratory Rate 24 H Respiratory Effort Short of Breath Labored Accessory Muscle Use Respiratory Depth Shallow Respiratory Pattern Tachypnea Blood Pressure Blood Pressure Mean Pulse Ox 88 96 Oxygen Delivery Method Nasal Cannula Nasal Cannula Nasal Cannula Oxygen Flow Rate (L/min) 4 4 03/30/21 09:06 03/30/21 10:00 Temperature 97.8 F 98 F Temperature Source Temporal Temporal Pulse Rate 96 87 Respiratory Rate 11 L 12 Respiratory Effort Respiratory Depth Respiratory Pattern Blood Pressure 118/82 H 140/54 H Blood Pressure Mean 94 82 Pulse Ox 96 87 Oxygen Delivery Method Room Air Room Air Oxygen Flow Rate (L/min) 4 Positive well nourished and well developed Constitutional Narrative: Nontoxic currently placed on nasal cannula 4 L. General Appearance ED: well developed and NAD HEENT Reports moist mucous membranes normocephalic and atraumatic Eyes PERRL, EOMs intact bilaterally and conjunctivae normal General Eye ED: Yes normal appearance of both eyes Neck no lymphadenopathy and supple General: Negative for tenderness Chest Wall Chest: Negative for tenderness Resp normal respiratory effort and normal air movement Resp Narrative: Coarse breath sounds. Effort and Inspection: symmetric chest movement; Negative for respiratory distress Cardio regular rate and no murmurs Rate: tachycardic Peripheral Pulses: pulses 2+ throughout GI normal to inspection, nondistended, normoactive bowel sounds and non-tender Palpation: Negative for guarding or rebound tenderness present Back/Spine no CVA tenderness and no thoracic nor lumbar tenderness Extremity normal to inspection General Extremety ED: Negative for edema or tenderness General Extremity: Negative for edema Neuro oriented x3 and no sensory deficits noted Sensorium / Orientation: awake and alert Skin no rashes or lesions noted and no wounds MDM MDM MDM Narrative Medical decision making narrative: Patient hypoxic on arrival, afebrile. He is tachycardic slightly tachypneic sepsis work-up initiated. Blood pressure stable. Chest x-ray right upper lobe infiltrate noted however per radiology resolving from previous. Labs with white count of 15.4, lactic acid 1.5, creatinine 1.34 improving from previous labs history of CKD. Initial ordered for Rocephin and Zithromax for community-acquired pneumonia sepsis coverage. On reevaluation, patient states he was improving after he coughed up a Mucinex pill. He now recalls he took his morning pill and he was sleepy. Now concerns for aspiration with hypoxia. Breathing is improving, he still has mild chest discomfort. His troponin is negative. He was given aspirin. Antibiotics changed to Unasyn. I spoke with hospitalist Dr. Jasso for admission to PCU. She would like to place an observations initially at this time. Heart score is a 5. Lab Data Attestation: I reviewed the patient's lab results. Labs: Laboratory Results - last 24 hr 03/30/21 03/30/21 03/30/21 08:55 08:55 08:55 WBC 15.4 H RBC 4.78 Hgb 16.2 Hct 47.0 MCV 98.3 H MCH 33.9 H MCHC 34.5 RDW Std Deviation 46.1 H RDW Coeff of Bharath 12.8 Plt Count 227 MPV 9.7 Immature Gran % (Auto) 0.500 Neut % (Auto) 81.8 H Lymph % (Auto) 9.3 L [place] % (Auto) 7.1 Eos % (Auto) 0.8 Baso % (Auto) 0.5 Absolute Neuts (auto) 12.6 H Absolute Lymphs (auto) 1.42 Nucleated RBC % 0 PT INR APTT Sodium Cancelled Potassium Cancelled Chloride Cancelled Carbon Dioxide Cancelled Anion Gap Cancelled BUN Cancelled Creatinine Cancelled Estim Creat Clear Calc Cancelled Est GFR (MDRD) Af Amer Cancelled Est GFR (MDRD) Non-Af Cancelled BUN/Creatinine Ratio Cancelled Glucose Cancelled Lactic Acid Cancelled Calcium Cancelled Total Bilirubin Cancelled AST Cancelled ALT Cancelled Alkaline Phosphatase Cancelled Troponin I High Sens Cancelled Total Protein Cancelled Albumin Cancelled Globulin Cancelled Albumin/Globulin Ratio Cancelled 03/30/21 03/30/21 03/30/21 09:05 09:30 09:30 WBC RBC Hgb Hct MCV MCH MCHC RDW Std Deviation RDW Coeff of Bharath Plt Count MPV Immature Gran % (Auto) Neut % (Auto) Lymph % (Auto) [place] % (Auto) Eos % (Auto) Baso % (Auto) Absolute Neuts (auto) Absolute Lymphs (auto) Nucleated RBC % PT 12.0 INR 0.9 APTT 27.8 Sodium 139 Potassium 3.7 Chloride 108 H Carbon Dioxide 24.0 Anion Gap 7 BUN 25 H Creatinine 1.34 H Estim Creat Clear Calc 57.91 Est GFR (MDRD) Af Amer 68 Est GFR (MDRD) Non-Af 56 L BUN/Creatinine Ratio 18.7 Glucose 115 H Lactic Acid 1.5 Calcium 8.9 Total Bilirubin 0.50 AST 18 ALT 19 Alkaline Phosphatase 46 Troponin I High Sens 17 Total Protein 7.4 Albumin 3.7 Globulin 3.7 Albumin/Globulin Ratio 1.0 Radiography Chest X-Ray - ED: 1 View, Read by ED Physician, Read by Radiologist and Right Infiltrate Diagnostic Testing: Radiology Impression Chest X-Ray 03/30/21 08:53 IMPRESSION: Mild degree of residual infiltrate in the right upper lobe although there has been improvement as compared to prior study. Electronically Signed: Mckay Blackwood MD at 9:43 EDT , Service support , EKG Initial EKG: Attestation: I personally reviewed and interpreted this EKG as follows: Comments: Sinus rhythm rate of 103, no ST changes. T wave inversion on aVL. Nonspecific. No new changes since December 2019. Critical Care Time Critical Care Time: Yes Critical care time (excluding procedures): Discussing w/Patient &/or Family/Care Attendant, Discussing w/Consultants, Arranging Admission or Transfer, Performing Direct Patient Care at Bedside and - (40 minutes) Discharge Plan Dx/Rx/DC Orders Clinical Impression: Sepsis, Aspiration into airway, Hypoxia, Chest pain, Chronic kidney disease Disposition Disposition: Acute Care Hospital [facility]
[2021-03-30 09:30] LABS: International Normalized Ratio 0.9; Partial Thromboplast Time 27.8 Seconds (24.1-36.2)
[2021-03-30 10:04] LABS: AST(SGOT) 18 U/L (15-37); Alanine Aminotransfer ALT/SGPT 19 U/L (16-61); Albumin, Serum 3.7 g/dL (3.2-5.0); Alkaline Phosphatase 46 U/L (45-117); Anion Gap 7 (5-15); BUN 25 mg/dL (7-18); BUN/Creat Ratio 18.7 RATIO (10-20); Calcium,Total 8.9 mg/dL (8.5-10.1); Chloride 108 mmol/L (98-107); Creatinine, Serum 1.34 mg/dL (0.70-1.30); EST Glomerular Filtration Rate 56 mL/min (>60); Est Glom Filt Rate - Afr Amer 68 mL/min (>60); Estimated Creatinine Clearance 57.91 ml/min; Globulin 3.7 g/dL (2.2-4.2); Glucose 115 mg/dL (74-106); Potassium 3.7 mmol/L (3.5-5.1); Protein, Total 7.4 g/dL (6.4-8.2); Sodium Level 139 mmol/L (136-145); Troponin-I HS 17 pg/mL (3.0-78.0)
[2021-03-30 10:20] LABS: Lactic Acid 1.5 mmol/L (0.4-1.9)
--- NOTE | 2021-03-30 11:01 | ECHOD_ITS ---
Reason For Study: CHEST PAIN Procedure This was a 2D Doppler, Color Flow transthoracic echocardiogram. The study was technically difficult. Exam performed portable in patient room. Left Ventricle Normal LV size. Left ventricular systolic function is normal. The estimated ejection fraction is 55 %. Stage 1 diastolic dysfunction. No regional wall motion abnormalities noted. Right Ventricle Normal RV size. Normal systolic function. Atria Normal left atrium. Normal right atrium. Mitral Valve Normal mitral valve. Tricuspid Valve Normal tricuspid valve. Aortic Valve Trisinus/trileaflet aortic valve. Pulmonic Valve Normal pulmonic valve. Great Vessels Normal aortic root. The pulmonary artery is normal size. Normal inferior vena cava. Pericardium/Pleural No pericardial effusion. MMode/2D Measurements & Calculations LVIDd: 4.3 cm IVSd: 0.93 cm Ao root diam: 3.7 cm LVIDs: 2.9 cm LVPWd: 1.0 cm FS: 33.5 % LAV(MOD-bp): 28.6 ml LA A4 area: 12.0 cm2 LA dimension(2D): 3.5 cm LAV(MOD-bp) Indexed: 12.6 ml/m2 LAV(MOD-sp2): 31.8 ml LAV(MOD-sp4): 25.0 ml Time Measurements MV dec time: 0.18 sec Doppler Measurements & Calculations MV E max aaron: 58.0 cm/sec Lat Peak E' Aaron: 10.2 cm/sec Med Peak E' Aaron: 6.7 cm/sec MV A max aaron: 93.4 cm/sec E/E' lat: 5.7 E/E' med: 8.6 MV E/A: 0.62 Ao V2 max: 121.5 cm/sec LV V1 max: 100.4 cm/sec PA V2 max: 83.7 cm/sec Ao max P.9 mmHg LV V1 max P.0 mmHg ECHO/Echo Complete Interpretation Summary Normal LV size. Left ventricular systolic function is normal. The estimated ejection fraction is 55 %. Stage 1 diastolic dysfunction. Ordering Physician: Emilia Jasso Referring Physician: Kelley Tolbert Performed By: Ban Jones, CRISTHIAN, RVT
--- NOTE | 2021-03-30 11:24 | HP.PCM.HOS_ITS ---
[facility] - General General Date of Admission: 03/30/21 HPI Narrative SHAYAN ROSENTHAL, is a 70 M who presented to the emergency department at [facility] on the a.m. of 03/30/2021 with a chief complaint of shortness of breath. The patient reports that he been having shortness of breath at rest and with exertion over several months now and reported this also to his physically impaired teacher in October at a outpatient visit. He states has been progressive since then. On presentation the emergency department he also complained of transient chest pain, which he states he chronically has issues with daily, that started at 7 AM this morning on the left side. He had no radicular symptoms, no nausea, no vomiting, no diaphoresis, and his baseline shortness of breath. He has had the Covid vaccination with his second shot completed in December. He does have a history of coronary disease with a CABG 8 years prior. His last catheterization was done in 2018 and showed stable coronary disease with recommended treatment of medical therapy. During his hospital stay he was noted to be hypoxic and while he was in the emergency department he coughed up a pill that he took this morning but evidently got stuck in his right mainstem bronchus. He states that he just took the pill incorrectly but upon review of his data from previous admissions he has been noted to have moderate to severe oral pharyngeal dysphagia on a modified barium swallow done in 2016. The patient does report he is to be wearing oxygen at home but only does this intermittently because his oxygen levels are at 96%. He also admits to a history of COPD. He went to her neurology visit this morning and his oxygen sat urations were noted to be in the 80s and he was referred to the emergency department. On arrival his oxygen saturation was 88% on room air and improved to 96% on 4 L nasal cannula. He states at home he wears 5 to 6 L and he does wear his oxygen. He was afebrile and initially mildly tachycardic but this has resolved. His respiratory rates are documented as 12-24. His labs show a leukocytosis with a white count of 15.4 and a left shift. His coags are normal. His BMP shows chronic stable creatinine elevation. Liver functions are normal. His initial high-sensitivity troponin was 17. His EKG showed tachycardia with poor R wave progression but no acute ST-T wave changes. His chest x-ray showed a right upper lobe infiltrate that appears improved when compared to previous imaging. On exam he has significant rhonchi in his right lung field. He was started on Unasyn for aspiration in the emergency department. He will be admitted to PCU for his chest pain/aspiration pneumonia and continue IV antibiotics with cycling of his cardiac enzymes. [facility] Medical History (Updated 03/30/21 @ 11:[address] Emilia Jasso, DO) Acute exacerbation of CHF (congestive heart failure) Acute respiratory failure with hypoxia (10/2019) Adrenal insufficiency Atherosclerosis of coronary artery bypass graft without angina pectoris Atherosclerosis of holy cross coronary artery of holy cross heart without angina pectoris Bilateral carotid artery stenosis BPH (benign prostatic hyperplasia) Chronic diastolic (congestive) heart failure Chronic systolic (congestive) heart failure COPD (chronic obstructive pulmonary disease) CVA (cerebral vascular accident) (06/30/19) Depression Elevated troponin (10/2019) Essential hypertension GERD (gastroesophageal reflux disease) History of non-ST elevation myocardial infarction (NSTEMI) (10/24/19) History of throat cancer History of vertebral artery stenosis Hyperlipidemia Hypothyroidism Ischemic cardiomyopathy Non compliance w medication regimen Orthostatic hypotension Right lower lobe pneumonia (10/2019) Septic shock (10/2019) TIA (transient ischemic attack) (07/05/19) Tonsillar cancer Vertigo Home Medications clopidogrel 75 mg PO DAILY 10/12/15 [History Last Taken 06/29/19 08:00 75 mg] albuterol sulfate 90 mcg/actuation aerosol inhaler 2 puff INHALATION Q4H PRN g 05/05/19 [History Last Taken 06/29/19 22:00 2 puffs] aspirin 81 mg PO DAILY@0800 06/17/19 [History Last Taken 06/29/19 08:00 81 mg] guaifenesin 1,200 mg PO Q12H PRN 06/17/19 [History Last Taken 06/29/19 21:30 1200 mg] multivitamin with minerals 1 tab PO DAILY 06/17/19 [History Last Taken 06/29/19 21:30 1 tab] pantoprazole 40 mg PO DAILY 06/17/19 [History Last Taken 06/29/19 21:30 20 mg] meclizine 12.5 mg PO BID #60 tab 07/01/19 [Rx Last Taken Unknown] sertraline 100 mg tablet 50 mg PO DAILY tab 07/17/19 [History Last Taken Unknown] prednisone 5 mg PO DAILY 05/30/20 [History Last Taken Unknown] sucralfate 1 tab PO 4X/DAY 01/02/20 [History Last Taken Unknown] fluticasone propion-salmeterol 1 ea IH DAILY 03/17/20 [History Last Taken Unknown] azithromycin 250 mg PO DAILY #4 tab 03/26/20 [Rx Last Taken Unknown] carvedilol 3.125 mg tablet 3.125 mg PO ONCE #90 tab 10/18/20 [Rx Last Taken Unknown] ergocalciferol (vitamin D2) 1,250 mcg (50,000 unit) capsule 50,000 unit PO 2XW cap 10/18/20 [History Last Taken Unknown] fludrocortisone 0.1 mg tablet 0.1 mg PO TID PRN tab 10/18/20 [History Last Taken Unknown] levothyroxine 100 mcg tablet 100 mcg PO DAILY tab 10/18/20 [History Last Taken Unknown] potassium chloride 10 mEq tablet,extended release 20 meq PO DAILY tab 10/18/20 [History Last Taken Unknown] umeclidinium 62.5 mcg-vilanterol 25 mcg/actuation powdr for inhalation 1 inh INHALATION DAILY ea 10/18/20 [History Last Taken Unknown] amlodipine 2.5 mg PO DAILY 03/30/21 [History Last Taken Unknown] atorvastatin 20 mg PO DAILY 03/30/21 [History Last Taken Unknown] chlorthalidone 12.5 mg PO DAILY 03/30/21 [History Last Taken Unknown] ipratropium-albuterol 1 puff INHALATION Q6H PRN 03/30/21 [History Last Taken Unknown] Allergy/AdvReac Type Severity Reaction Status Date / Time ranolazine [From Ranexa] AdvReac Intermediate wake up Verified 10/18/20 09:12 at night feeling like choking ciprofloxacin [From Cipro] AdvReac Vomiting Verified 10/18/20 09:12 ciprofloxacin HCl AdvReac Vomiting Verified 10/18/20 09:12 [From Cipro] metronidazole [From Flagyl] AdvReac Vomiting Verified 10/18/20 09:12 morphine AdvReac after 2-3 Verified 10/18/20 09:12 days I turn into a monster ofloxacin [From Floxin] AdvReac Vomiting Verified 10/18/20 09:12 Family History Mother CAD (coronary artery disease) Lung cancer Father Cancer esophageal cancer Brother Diabetes Hypertension Alcoholism Surgical History H/O coronary artery bypass surgery (02/26/13) History of appendectomy History of cholecystectomy History of gastric bypass History of left common carotid artery stent placement (2018) History of left heart catheterization (06/18/19) History of right common carotid artery stent placement (2018) Social History Smoking Status: Never smoker alcohol intake: never substance use type: does not use caffeine: No what type of physical activity do you participate in: none seatbelt use: always do you feel safe at home: Yes ROS Constitutional Constitutional: Denies anorexia, change in weight, chills, fatigue, fever(s), malaise, night sweats, weakness or other Eyes Eyes: Denies blurry vision, change in eye color, change in vision, discharge from eye(s), double vision, erythema, eye pain, loss of vision or other ENT HEENT: Denies abnormal hearing, dysphagia, ear pain, epistaxis, headache(s), hearing loss, nasal congestion, nasal discharge, post nasal drip, sinus pressure, sore throat or other Cardiovascular Cardiovascular: Reports chest pain, dyspnea on exertion and edema; Denies claudication, lightheadedness, orthopnea, palpitations, paroxysmal nocturnal dyspnea, rapid heart rate, syncope or other Respiratory/Chest Respiratory/Chest: Reports cough, dyspnea, productive cough, shortness of breath at rest and shortness of breath with exertion; Denies excessive phlegm production, hemoptysis or wheezing Gastrointestinal Gastrointestinal: Denies abdominal pain, coffee ground emesis, constipation, diarrhea, dyspepsia, hematemesis, hematochezia, loose stools, melena, nausea, vomiting or other Genitourinary Genitourinary: Denies burning urination, difficulty urinating, dysuria, giovany turia, nocturia, urinary frequency, urinary hesitancy, urinary incontinence, urinary urgency or other Musculoskeletal Musculoskeletal: Reports joint pain and joint stiffness; Denies arthralgias, back pain, joint swelling, myalgias, neck pain or other Neurologic Neurologic: Reports abnormal gait; Denies abnormal speech, confusion, disequilibrium, dizziness, focal weakness, headache(s), numbness, paresthesias, seizure-like activity, seizures, syncope, tingling, tremor(s) or other Psychiatric Psychiatric: Denies anxiety, depression, homicidal ideation, suicidal ideation or other Endocrine Endocrinology: Denies change in body appearance, cold intolerance, excessive sweating, heat intolerance, polydipsia, polyuria or other Hematologic/Lymphatic Hematologic/Lymphatic: Denies anemia, easy bleeding, easy bruising, lymphadenopathy or other Allergic/Immunologic Allergic/Immunologic: Denies rhinitis, hives, eczemia, asthma or other Vital Signs Vital Signs Vital Signs: 03/30/21 08:36 03/30/21 08:53 03/30/21 08:58 Temperature 97.0 F L Temperature Source Temporal Pulse Rate 109 H Respiratory Rate 24 H Respiratory Effort Short of Breath Labored Accessory Muscle Use Respiratory Depth Shallow Respiratory Pattern Tachypnea Blood Pressure Blood Pressure Mean Pulse Ox 88 96 Oxygen Delivery Method Nasal Cannula Nasal Cannula Nasal Cannula Oxygen Flow Rate (L/min) 4 4 03/30/21 09:06 03/30/21 10:00 03/30/21 11:20 Temperature 97.8 F 98 F 97.9 F Temperature Source Temporal Temporal Temporal Pulse Rate 96 87 83 Respiratory Rate 11 L 12 12 Respiratory Effort Respiratory Depth Respiratory Pattern Blood Pressure 118/82 H 140/54 H 118/98 H Blood Pressure Mean 94 82 104 Pulse Ox 96 87 97 Oxygen Delivery Method Room Air Room Air Room Air Oxygen Flow Rate (L/min) 4 Weight Weight: 104.9 kg Body Mass Index (BMI) 31.4 Physical Exam Const alert, oriented x3 and no apparent distress Constitutional Narrative: Older white male sitting up in bed, appears older than stated age, nontoxic General Appearance: cooperative HEENT normocephalic, head/scalp atraumatic and moist oral mucous membranes HEENT Narrative: Mildly hard of hearing, Mallampati 2-3, fair dentition Mouth: oral and palatal mucosa normal Eyes PERRL, EOMs intact bilaterally and conjunctivae normal Neck no lymphadenopathy, supple and no JVD Neck Narrative: Right-sided carotid bruit Resp no retractions and no use of accessory muscles Resp Narrative: No respiratory distress but significant rhonchi in the right lung field, left lung field is clear Auscultation: rhonchi; Negative for crackles, rales or wheezes Cardio regular rate, regular rhythm, S1 normal heart sound, S2 normal heart sound, no murmurs, no rub, no gallops, no clicks and no JVD GI normal to inspection, nondistended, normoactive bowel sounds, soft to palpation, non-tender and non-distended Extremity no clubbing, cyanosis or edema Extremity Narrative: Trace bilateral lower extremity edema Peripheral Pulses: Yes pulses 2+ throughout Skin no rashes or lesions noted, no wounds, skin turgor normal, no jaundice, no petechiae and no mottling Neuro oriented x3, CN's II-XII intact bilaterally, moves all extremities and no focal motor deficits Neuro Narrative: Mild generalized weakness, reflexes 2+ throughout upper and lower extremities Sensorium / Orientation: awake, alert, oriented to person, oriented to place and oriented to time Speech: speech normal Psych affect normal Psych Narrative: Very pleasant Results Lab / Micro Data Attestation: I reviewed the patient's lab results. Result Diagrams: 03/30/21 08:55 03/30/21 09:30 Labs: Laboratory Results - last 24 hr 03/30/21 08:55: WBC 15.4 H, RBC 4.78, Hgb 16.2, Hct 47.0, MCV 98.3 H, MCH 33.9 H , MCHC 34.5, RDW Std Deviation 46.1 H, RDW Coeff of Bharath 12.8, Plt Count 227, MPV 9.7, Immature Gran % (Auto) 0.500, Neut % (Auto) 81.8 H, Lymph % (Auto) 9.3 L, Barrow % (Auto) 7.1, Eos % (Auto) 0.8, Baso % (Auto) 0.5, Absolute Neuts (auto) 12 .6 H, Absolute Lymphs (auto) 1.42, Nucleated RBC % 0 03/30/21 08:55: Sodium Cancelled, Potassium Cancelled, Chloride Cancelled, Carbon Dioxide Cancelled, Anion Gap Cancelled, BUN Cancelled, Creatinine Cancelled, Estim Creat Clear Calc Cancelled, Est GFR (MDRD) Af Amer Cancelled, Est GFR (MDRD) Non-Af Cancelled, BUN/Creatinine Ratio Cancelled, Glucose Cancelled, Calcium Cancelled, Total Bilirubin Cancelled, AST Cancelled, ALT Cancelled, Alkaline Phosphatase Cancelled, Troponin I High Sens Cancelled, Total Protein Cancelled, Albumin Cancelled, Globulin Cancelled, Albumin/Globulin Ratio Cancelled 03/30/21 08:55: Lactic Acid Cancelled 03/30/21 09:05: PT 12.0, INR 0.9, APTT 27.8 03/30/21 09:30: Sodium 139, Potassium 3.7, Chloride 108 H, Carbon Dioxide 24.0, Anion Gap 7, BUN 25 H, Creatinine 1.34 H, Estim Creat Clear Calc 57.91, Est GFR (MDRD) Af Amer 68, Est GFR (MDRD) Non-Af 56 L, BUN/Creatinine Ratio 18.7, Glucose 115 H, Calcium 8.9, Total Bilirubin 0.50, AST 18, ALT 19, Alkaline Phosphatase 46, Troponin I High Sens 17, Total Protein 7.4, Albumin 3.7, Globulin 3.7, Albumin/Globulin Ratio 1.0 03/30/21 09:30: Lactic Acid 1.5 Micro: Microbiology 03/30/21 08:55 Nasal Secretion SARS-CoV-2 Antigen (Rapid) - Final Radiology Impression Chest X-Ray 03/30/21 08:53 IMPRESSION: Mild degree of residual infiltrate in the right upper lobe although there has been improvement as compared to prior study. Electronically Signed: Mckay Blackwood MD at 9:43 EDT , Service support , Assessment & Plan Assessment/Plan (1) Hypoxia: (2) Aspiration into airway: (3) Chest pain: (4) Dysphagia: (5) Right carotid bruit: PLAN: Acute on chronic hypoxic respiratory insufficiency secondary to aspiration pneumonia -It appears the patient has had chronic issues with dysphagia -He is not on a modified diet at baseline -Aspirated and coughed up a pill of Mucinex today while in the emergency department -Check modified barium swallow -Speech therapy consultation -Continue Unasyn as initiated in the emergency department -Sputum culture if able -Check urine Legionella and strep pneumo antigens -Check BNP -IS/Acapella -It appears that he may be chronically aspirating at baseline based on review of his CT of his chest done in October of this year -Continue supplemental oxygen and wean as able Chest pain/shortness of breath -Initial troponin is negative -Check BNP -Patient is complaining of chronic shortness of breath as well -EKG shows no signs of acute ischemia -Cycle cardiac enzymes -Check echocardiogram Dysphagia -Patient has had documented dysphagia at baseline but is not following a restricted diet -Check modified barium swallow -Speech therapy consult Right carotid bruit -Patient has history of carotid endarterectomy -Check carotid duplex COPD -Continue home medications CAD/hypertension/hyperlipidemia -Remote history of CABG -Last cath showed occlusion of saphenous vein grafts with recommendation for medical treatment -Continue amlodipine 2.5, carvedilol 3.125 twice daily, chlorthalidone 12.5 -Continue statin -Continue aspirin and Plavix -Work-up as above Adrenal insufficiency -Continue prednisone and fludrocortisone -Blood pressures are very labile Vitamin D deficiency -Restart ergocalciferol at discharge GERD -Continue Protonix/Carafate Depression -Continue Zoloft DVT prophylaxis -Lovenox daily CODE STATUS Full code Charges/Coding Visit Charges Inpatient E&M: 35012 Init Hosp L3
--- NOTE | 2021-03-30 11:48 | CDU_ITS ---
Reason For Study: Bruit Rt. Velocities/BP Lt. Velocities/BP Prox CCA 56.5/26.5 cm/sec. Prox CCA 101.0/40.7 cm/sec. Mid CCA 176.9/86.3 cm/sec. Mid CCA 102.8/46.2 cm/sec. Dist CCA 89.3/38.8 cm/sec. Dist CCA 65.1/32.2 cm/sec. Prox ICA 54.1/24.8 cm/sec. Prox ICA 252.2/138.5 cm/sec. Mid ICA 158.8/78.5 cm/sec. Mid ICA 218.4/114.7 cm/sec. Dist ICA 233.9/107.0 cm/sec. Dist ICA 170.4/79.1 cm/sec. Rt. ICA/CCA = 1.3. Lt. ICA/CCA = 2.5. ICA/CCA ratio is misleading due to mid Prox ECA 97.0/28.9 cm/sec. CCA stenosis. Lt. Vert. 75.4/38.9 cm/sec. Rt. Vert. 38.8/16.8 cm/sec. Right Extracranial There is heterogeneous, irregular atherosclerotic plaque noted in the right common carotid artery. There is heterogeneous, irregular atherosclerotic plaque noted in the right internal carotid artery. Stent noted from distal CCA through ICA. No flow could be demonstrated in the ECA. Antegrade flow is noted in the right vertebral artery. Left Extracranial There is heterogeneous, irregular atherosclerotic plaque noted in the left common carotid artery. There is heterogeneous, irregular atherosclerotic plaque noted in the left internal carotid artery. Stent noted from distal CCA through ICA. There is heterogeneous, irregular atherosclerotic plaque noted in the left external carotid artery. Antegrade flow is noted in the left vertebral artery. Procedure Carotid Duplex 69306. This is a Carotid Duplex examination using B-mode, color flow and specral Doppler. The exam was diagnostic. Exam performed portable in patient room. Prelim to the Pt's CLINTON Carreno. VL/Carotid Duplex Ultrasound Interpretation Summary Irregular calcific plaque in the right common carotid artery. Focal area of inc reased velocity in the mid right common carotid artery at 176 cm/s flow with end-diastolic velocit y of 86. This would suggest moderate stenosis however criteria for the internal carotid artery do n ot apply to the common carotid artery Evidence of a stent in the right distal common carotid into the right internal carotid artery. The stented carotid appears to be patent and based upon velocities there is a s uggestion of greater than 70% stenosis of the distal right internal carotid but this may be an overe stimation secondary to the stent placement. Irregular calcific plaque within the left common carotid with evidence of stent noted within the distal left common carotid extending into the left internal carotid artery. Bibi vated peak systolic velocity within the left internal carotid to 252 cm second peak stock flow with an end-diastolic velocity of 138 cm/s. This would be consistent with greater than 70% stenosis. Less than 50% stenosis left external carotid artery Patent and antegrade vertebral arteries bilaterally The previous examination of December 05, 2016 did not incorporate bilateral carotid s tents at that time. Ordering Physician: Emilia Jasso Performed By: Bryce Moseley RVT
--- NOTE | 2021-03-30 12:24 | PCS.PANDOC ---
PANDEMIC DOCUMENTATION INITIATED: Date: 03/20/2021 Time: 190
[2021-03-30 12:51] LABS: BNP,B-Type NATRIURETIC PEPTIDE 84.7 pg/mL (0-100)
--- NOTE | 2021-03-30 14:24 | NURSING ---
PT refused to go down for swallow function at 1405. Educated pt on importance of exam, pt still refused.
[2021-03-30 14:55] LABS: Troponin-I HS 68 pg/mL (3.0-78.0)
[2021-03-30 15:43] LABS: Troponin-I HS 75 pg/mL (3.0-78.0)
[2021-03-30] MEDS: Ipratropium/Albuterol Sulfate 3 ML AMPUL.NEB INHALATION ×2 (15:43→18:37)
[2021-03-30] MEDS: Sucralfate 1 GM Tablet PO ×2 (17:32→21:10)
[2021-03-30] MEDS: Budesonide Respules 0.5 MG/2 ML AMPUL.NEB. INHALATION (18:37)
[2021-03-30] MEDS: Meclizine 12.5 MG Tablet PO (21:12)
[2021-03-30] MEDS: Acetaminophen 325 MG Tablet 650 MG PO (21:21)
[2021-03-31] VITALS (11 sets, daily range): BP systolic 119–128; BP diastolic 60–96; PULSE 78–90; RESP 12–18; TEMP 36.6–36.8; O2SAT 87–96
[2021-03-31] MEDS: Levothyroxine 100 MCG Tablet PO (05:20)
[2021-03-31] MEDS: Sucralfate 1 GM Tablet PO ×2 (05:20→10:00)
[2021-03-31 06:48] LABS: Absolute Lymphocyte Count 1.41 X10^3/uL (0.83-4.51); Absolute Neutrophil Count 5.7 X10^3/uL (2.0-7.7); Basophil# 0.08 X10^3/uL; Eosinophils% 2.4 % (0-5); Hematocrit 47.4 % (40-54); Hemoglobin 15.4 g/dL (13.0-16.5); Lymphocyte # 1.41 X10^3/ul (0.83-4.51); Lymphocyte % 16.8 % (19-41); Mean Corp Hgb Conc 32.5 g/dL (32-36); Mean Corpuscular Hgb 33.2 pg (27.0-32.0); Mean Corpuscular Volume 102.2 fL (80-94); Monocyte# 0.97 X10^3/uL; Monocyte% 11.5 % (0-10); NRBC Flagged by Analyzer 0 % (0-5); Neutrophil # 5.71 X10^3/uL (2.7-7.7); Neutrophil % 67.8 % (47-70); Platelet Count 209 K/mm3 (150-450); RBC Distribution Width SD 48.9 fl (35.1-43.9); Red Blood Count 4.64 M/mm3 (4.6-6.2); White Blood Count 8.4 K/mm3 (4.4-11.0)
[2021-03-31 07:14] LABS: ALB/GLOB Ratio 0.9 RATIO (0.9-2.4); AST(SGOT) 22 U/L (15-37); Alanine Aminotransfer ALT/SGPT 17 U/L (16-61); Albumin, Serum 3.3 g/dL (3.2-5.0); Alkaline Phosphatase 44 U/L (45-117); Anion Gap 8 (5-15); BUN 20 mg/dL (7-18); BUN/Creat Ratio 16.5 RATIO (10-20); Calcium,Total 8.7 mg/dL (8.5-10.1); Chloride 107 mmol/L (98-107); Creatinine, Serum 1.21 mg/dL (0.70-1.30); EST Glomerular Filtration Rate 63 mL/min (>60); Est Glom Filt Rate - Afr Amer 77 mL/min (>60); Estimated Creatinine Clearance 64.13 ml/min; Globulin 3.5 g/dL (2.2-4.2); Glucose 85 mg/dL (74-106); Magnesium 2.1 mg/dL (1.6-2.6); Potassium 3.7 mmol/L (3.5-5.1); Protein, Total 6.8 g/dL (6.4-8.2); Sodium Level 138 mmol/L (136-145)
[2021-03-31 07:30] LABS: Phosphorus 2.6 mg/dL (2.5-4.9)
--- NOTE | 2021-03-31 09:18 | CASEMGMT ---
Addendum entered by Oriana Sanchez 03/31/21 11:47: Per Ev ALONZO, pt did not require increased oxygen to ambulate at this time. Douglas ALONZO CM Original Note: Call to [facility] and pt's most current order for home oxygen is for 3L at rest and 6L w/ exertion. Pt is currently on 2Lnc at this time. CM to follow. Douglas ALONZO CM
[2021-03-31] MEDS: Carvedilol 3.125 MG TABLET PO (09:56)
[2021-03-31] MEDS: Meclizine 12.5 MG Tablet PO (09:56)
[2021-03-31] MEDS: Potassium Chloride Oral Tablet 20 MEQ PO (09:56)
[2021-03-31] MEDS: amLODIPine 2.5 MG Tablet PO (09:56)
[2021-03-31] MEDS: Chlorthalidone 50 MG Tablet 12.5 MG PO (09:56)
[2021-03-31] MEDS: Pantoprazole Sodium 40 MG Tablet PO (09:56)
[2021-03-31] MEDS: Sertraline 50 MG Tablet PO (09:56)
[2021-03-31] MEDS: predniSONE 5 MG Tablet PO (09:56)
[2021-03-31] MEDS: Atorvastatin Calcium 20 MG Tablet PO (09:56)
[2021-03-31] MEDS: Clopidogrel Bisulfate 75 MG Tablet PO (09:56)
[2021-03-31] MEDS: Azithromycin 250 MG Tablet PO (09:56)
[2021-03-31] MEDS: Aspirin E.C. 81 MG Tablet PO (09:56)
--- NOTE | 2021-03-31 09:59 | SP.MBSS_ITS ---
Modified Barium Swallow - Patient Information Study Date: 03/31/21 Study Time: 09:00 Direct Billable Minutes: 120 Total Minutes procedure & reportin Diagnosis: oropharyngeal dysphagia (R13.12) Referring Physician: Emilia Jasso Reason for Referral: To objectively assess swallow function under fluoroscopy and determine presence and/or degree of aspiration. There are concerns for possible aspiration component with both bedside presentation and recent chest xray results. Medical History: SHAYAN ROSENTHAL, is a 70 M who presented to the emergency department at [facility] on the a.m. of 03/30/2021 with a chief complaint of shortness of breath. 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 He states has been progressive since then. On presentation the emergency department he also complained of transient chest pain, which he states he chronically has issues with daily, that started at 7 AM this morning on the left side. He had no radicular symptoms, no nausea, no vomiting, no diaphoresis, and his baseline shortness of breath. He has had the Covid vaccination with his second shot completed in December. He does have a history of coronary disease with a CABG 8 years prior. His last catheterization was done in 2018 and showed stable coronary disease with recommended treatment of medical therapy. During his hospital stay he was noted to be hypoxic and while he was in the emergency department he coughed up a pill that he took this morning but evidently got stuck in his right mainstem bronchus. He states that he just took the pill incorrectly but upon review of his data from previous admissions he has been noted to have moderate to severe oral pharyngeal dysphagia on a modified barium swallow done in 2016. The patient does report he is to be wearing oxygen at home but only does this intermittently because his oxygen levels are at 96%. He also admits to a history of COPD. He went to her neurology visit this morning and his oxygen saturations were noted to be in the 80s and he was referred to the emergency department. On arrival his oxygen saturation was 88% on room air and improved to 96% on 4 L nasal cannula. He states at home he wears 5 to 6 L and he does wear his oxygen. He was afebrile and initially mildly tachycardic but this has resolved. His respiratory rates are documented as 12-24. His labs show a leukocytosis with a white count of 15.4 and a left shift. His coags are normal. His BMP shows chronic stable creatinine elevation. Liver functions are normal. His initial high-sensitivity troponin was 17. His EKG showed tachycardia with poor R wave progression but no acute ST-T wave changes. His chest x-ray showed a right upper lobe infiltrate that appears improved when compared to previous imaging. On exam he has significant rhonchi in his right lung field. He was started on Unasyn for aspiration in the emergency department. He will be admitted to PCU for his chest pain/aspiration pneumonia and continue IV antibiotics with cycling of his cardiac enzymes. [facility] Medical History (Updated 03/30/21 @ 11:[address] Emilia Jasso, ) Acute exacerbation of CHF (congestive heart failure) Acute respiratory failure with hypoxia (10/2019) Adrenal insufficiency Atherosclerosis of coronary artery bypass graft without angina pectoris Atherosclerosis of [place] coronary artery of [place] heart without angina pectoris Bilateral carotid artery stenosis BPH (benign prostatic hyperplasia) Chronic diastolic (congestive) heart failure Chronic systolic (congestive) heart failure COPD (chronic obstructive pulmonary disease) CVA (cerebral vascular accident) (06/30/19) Depression Elevated troponin (10/2019) Essential hypertension GERD (gastroesophageal reflux disease) History of non-ST elevation myocardial infarction (NSTEMI) (10/24/19) History of throat cancer History of vertebral artery stenosis Hyperlipidemia Hypothyroidism Ischemic cardiomyopathy Non compliance w medication regimen Orthostatic hypotension Right lower lobe pneumonia (10/2019) Septic shock (10/2019) TIA (transient ischemic attack) (07/05/19) Tonsillar cancer Vertigo Current Diet Ordered: NPO Respiratory Status: Oxygenating on 2L/M nasal cannula - Penetration-Aspiration Scale Penetration-Aspiration Scale: OBJECTIVE ASSESSMENT OF SWALLOW FUNCTION (QUANTITATIVE ? PER TRIAL): PENETRATION / ASPIRATION SCALE (WEEKS): 1 = does not enter airway 2 = enters airway/above vocal folds/ejected 3 = enters airway/above vocal folds/not ejected 4 = enters airway/contacts vocal folds/ejected 5 = enters airway/contacts vocal folds/not ejected 6 = enters airway/below vocal folds/ejected 7 = enters airway/below vocal folds/not ejected despite effort 8 = enters airway/below vocal folds/no effort - Penetration-Aspiration Scale Score Thin Liquid via teaspoon Result: 2= enter airway/above vocal folds/ejected Thin Liquid via teaspoon Trial 2 Result: 2= enter airway/above vocal folds/ejected Thin Liquid via small single sip from cup Result: 2= enter airway/above vocal folds/ejected Thin Liquid via large single sip from cup Result: 5= enters airways/contacts vocal folds/not ejected Thin Liquid via sequential sips from cup Result: 5= enters airways/contacts vocal folds/not ejected [place] Thick Liquid via large single sip from cup Result: 4= enters airway/contacts vocal folds/ejected Honey Thick Liquid via large single sip from cup Result: 4= enters airway/contacts vocal folds/ejected Pudding via teaspoon Result: 1= does not enter airway Cookie Result: 1= does not enter airway Thin Liquid via single sip from straw Result: 5= enters airways/contacts vocal folds/not ejected Thin Liquid via sequential sips from straw Result: 5= enters airways/contacts vocal folds/not ejected - Oral Phase Labial Seal: No Labial Escape Tongue Control During Bolus Hold: Posterior escape of less than half of bolus Bolus Preparation/Mastication: Slow prolonged chewing/mashing with complete recollection Bolus Transport/Lingual Motion: Brisk tongue motion Oral Residue: Residue collection on oral structures - Pharyngeal Phase Initiation of Pharyngeal Swallow: Bolus head in pyriforms Soft Palate Elevation: No bolus between soft palate and pharyngeal wall Laryngeal Elevation: Partial superior movement thyroid cart/partial apprx aryt- epig petiole Anterior Hyoid Excursion: Partial anterior movement Epiglottic Movement: Partial inversion Laryngeal Vestibule Closure at Height of Swallow: Incomplete; narrow column of air/contrast in laryngeal vestibule Pharyngeal Stripping Wave: Present - diminished Pharyngoesophageal Segment Opening: Parital distension and partial duration; parital obstruction of flow Tongue Base Retraction: Narrow column of contrast between tongue base & post. pharyngeal wall Pharyngeal Residue: Collection of residue within or on pharyngeal structures - Esophageal Phase Esophageal Clearance: Esophageal retention w/ retrograde flow below pharyngoesophageal seg. - Diagnosis/Impression Diagnosis: moderate oropharyngeal dysphagia (R13.12) Impression: *Upon patient's presentation to radiology room for modified barium swallow study, the patient reported feeling nauseated. Following initial trial of a teaspoon sip of thin liquid patient presented with dry heaving and reported continued nausea and dry mouth limiting the amount of trials and strategies able to be completed during the study. Oral phase primarily marked by slowed mastication of the solid Candice Doone shortbread cookie with moderate oral residue requiring several swallows and liquid chaser to assist with clearing of oral cavity. Pharyngeal phase primarily marked by pharyngeal residue post deglutition secondary to decreased laryngeal elevation and anterior hyoid excursion. This resulted in penetration to the vocal cords with larger sips of thin liquids via cup and straw and with nectar thick liquids. Trace amounts of contrast remained following all penetration identified. No aspiration found at this time although highly suspect aspiration outside of this assessment given patient's current pneumonia and chest x-ray results and patients report of coughing up a whole pill and scrambled eggs 1/2 hour after consuming. In addition, patient has history of throat and tonsillar cancer and COPD placing him at higher risk for aspiration. Esophageal phase primarily marked by esophageal retention and retrograde flow below the PES. Would consider further workout to be completed by a financial aid manager. - Recommendations Comment: Soft and bite sized textures (IDDSI 6) and thin liquids (IDDSI 0) Compensatory Strategies: Small Bites, Small Sips - one very small sip at a time, No Straws, Slow Rate, Multiple Swallows - 2-3 swallows for every sips, Alternate bites/solids and sips/liquids, Sitting upright, Remain sitting upright for 30 minutes after PO intake - (GERD precaution) Supervision: Distant Supervision Recommend Repeat Modified Barium Swallow: TBD Need for Skilled Speech Therapy Services: Yes - for compen. strategy training & diet education Recommended Referrals: GI Consult Education Completed: 1. Described result of evaluation. - Status Active ST Patient: Active - Contact Information [facility] Speech Therapy:: Lana Ramirez MA, CCC-SUPPLIER MANAGER Speech-Language Pathologist [address] [id number] [email or web address]
[2021-03-31] MEDS: Ipratropium/Albuterol Sulfate 3 ML AMPUL.NEB INHALATION (13:01)
--- NOTE | 2021-03-31 13:08 | DS.PCM_ITS ---
Providers Date of Admission: 03/30/21 Primary Care Physician: Dr. eKlley Tolbert MD Reason For Visit: ASPIRATION PNA/CHEST PAIN Diagnosis Discharge Diagnosis (1) Hypoxia: Status: Acute Code(s): R09.02 - Hypoxemia (2) Aspiration into airway: Status: Acute Code(s): T17.908A - Unspecified foreign body in respiratory tract, part unspecified causing other injury, initial encounter (3) Chest pain: Status: Acute Code(s): R07.9 - Chest pain, unspecified (4) Dysphagia: Status: Acute Code(s): R13.10 - Dysphagia, unspecified (5) Right carotid bruit: Status: Acute Code(s): R09.89 - Other specified symptoms and signs involving the circulatory and respiratory systems Medications at Discharge Home Medications clopidogrel 75 mg PO DAILY 10/12/15 albuterol sulfate 90 mcg/actuation aerosol inhaler 2 puff INHALATION Q4H PRN g 05/05/19 aspirin 81 mg PO DAILY@0800 06/17/19 guaifenesin 1,200 mg PO BID PRN 06/17/19 multivitamin with minerals 1 tab PO DAILY 06/17/19 pantoprazole 40 mg PO DAILY 06/17/19 meclizine 12.5 mg PO BID #60 tab 07/01/19 sertraline 100 mg tablet 50 mg PO BID tab 07/17/19 prednisone 10 mg PO DAILY 01/02/20 sucralfate 1 tab PO TID 01/02/20 fluticasone propion-salmeterol 1 ea IH DAILY 03/17/20 azithromycin 250 mg PO DAILY #4 tab 03/26/20 carvedilol 3.125 mg tablet 3.125 mg PO ONCE #90 tab 10/18/20 ergocalciferol (vitamin D2) 1,250 mcg (50,000 unit) capsule 50,000 unit PO 2XW cap 10/18/20 fludrocortisone 0.1 mg tablet 0.1 mg PO TID PRN tab 10/18/20 levothyroxine 100 mcg tablet 100 mcg PO DAILY tab 10/18/20 potassium chloride 10 mEq tablet,extended release 20 meq PO DAILY tab 10/18/20 umeclidinium 62.5 mcg-vilanterol 25 mcg/actuation powdr for inhalation 1 inh INHALATION DAILY ea 10/18/20 amlodipine 2.5 mg PO DAILY 03/30/21 atorvastatin 20 mg PO DAILY 03/30/21 chlorthalidone 12.5 mg PO DAILY 03/30/21 ipratropium-albuterol 1 puff INHALATION Q6H PRN 03/30/21 amoxicillin-pot clavulanate [Augmentin] 1 tab PO BID #12 tab 03/31/21 Hospital Course Summary of Care Provided Minutes Spent on Discharge: 48 Hospital Course: SHAYAN ROSENTHAL, is a 70 M who presented to the emergency department at [facility] on the a.m. of 03/30/2021 with a chief complaint of shortness of breath. 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 He stated it has been progressive since then. On presentation the emergency department he also complained of transient chest pain, which he stated he chronically has issues with daily, that started at 7 AM this morning on the left side. He had no radicular symptoms, no nausea, no vomiting, no diaphoresis, and his baseline shortness of breath. He had the Covid vaccination with his second shot completed in December. He does have a history of coronary disease with a CABG 8 years prior. His last catheterization was done in 2018 and showed stable coronary disease with recommended treatment of medical therapy. During his emergency room visit he was noted to be hypoxic and while he was in the emergency department he coughed up a pill that he took this morning but evidently got stuck in his right mainstem bronchus. He states that he just took the pill incorrectly but upon review of his data from previous admissions he has been noted to have moderate to severe oral pharyngeal dysphagia on a modified barium swallow done in 2017 and was recommended to have a repeat last year but this was never performed. The patient did report he is to be wearing oxygen at home but only does this intermittently because his oxygen levels are at 96%. He also admitted to a history of COPD. He went to his neurology visit on the day of his admission and his oxygen saturations were noted to be in the 80s and he was referred to the emergency department. On arrival his oxygen saturation was 88% on room air and improved to 96% on 4 L nasal cannula. He states at home he wears 5 to 6 L when he does wear his oxygen. He was afebrile and initially mildly tachycardic but that resolved quickly. His respiratory rates were documented as 12-24. His labs show a leukocytosis with a white count of 15.4 and a left shift which resolved by the day of discharge. His coags are normal. His BMP shows chronic stable creatinine elevation remained stable throughout his stay. Liver functions were normal. His initial high-sensitivity troponin was 17 and never elevated with enzymes cycling. His EKG showed tachycardia with poor R wave progression but no acute ST-T wave changes. His chest x-ray showed a right upper lobe infiltrate that appears improved when compared to previous imaging. On exam had significant rhonchi in his right lung field. He was started on Unasyn for aspiration in the emergency department. He was admitted to PCU for further medical care. He was seen by speech therapy and modified barium swallow was performed which showed moderate oropharyngeal dysphagia and it was recommended he use a soft and bite-size texture diet with thin liquids and compensatory strategies as noted in the full text of the MBS. There was also noted esophageal retention and retrograde flow below the PES and outpatient GI referral was recommended for consideration of an EGD. This referral was made to Dr. Alberto at discharge and the results were discussed with the patient. I suspect his overall respiratory issues that he has been experiencing on a chronic basis are likely related to repeat current aspiration. 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 We will refer him for speech therapy as an outpatient. As noted above his cardiac enzymes were negative. His echocardiogram was unremarkable with an EF of 55%, no wall motion abnormalities and stage I diastolic dysfunction. Bruit was noted on clinical exam and therefore carotid duplex ordered. The patient does have a known history of carotid artery stent. He has seen Dr. Nieto at [facility] for this previously. The duplex study noted increased velocity in the mid right common carotid artery that suggests moderate stenosis, evidence of a stent in the distal right common carotid artery with patency noted in the stented area, irregular calcific plaques in the left common carotid artery with evidence of a stent noted in the distal left common carotid. Given the abnormal findings we did recommend the patient follow-up with Dr. Nieto for comparison of previous imaging and reevaluation after discharge. The patient is already on aspirin and Plavix at this time and has no neurological deficits. He was instructed to follow-up with his PCP in a week, Dr. Alberto as soon as he can get an appointment and Dr. Nieto at [facility] for vascular surgery when he could get an appointment as well. He was also referred for speech therapy. He was discharged to complete Augmentin for aspiration pneumonia. Discharge diagnoses: Chronic hypoxic respiratory failure secondary to chronic aspiration/COPD Dysphagia Aspiration pneumonia Bilateral carotid artery stenosis status post stenting Esophageal motility abnormalities COPD CAD Hypertension Hyperlipidemia Adrenal insufficiency Vitamin D deficiency GERD Depression Physical Exam Const alert, oriented x3 and no apparent distress Constitutional Narrative: Older white male sitting up in bed, appears older than stated age, nontoxic General Appearance: cooperative, comfortable, well kempt and well developed HEENT normocephalic, head/scalp atraumatic and moist oral mucous membranes Eyes PERRL, EOMs intact bilaterally and conjunctivae normal Neck no lymphadenopathy, supple and no JVD Neck Narrative: Right-sided carotid bruit Resp normal respiratory effort, no retractions and no use of accessory muscles Resp Narrative: Few scattered rhonchi on the right but much improved in the last 24 hours Auscultation: rhonchi; Negative for crackles, rales or wheezes Cardio regular rate, regular rhythm, S1 normal heart sound, S2 normal heart sound, no murmurs, no rub, no gallops, no clicks and no JVD GI normal to inspection, nondistended, normoactive bowel sounds, soft to palpation, non-tender and non-distended Extremity no clubbing, cyanosis or edema Extremity Narrative: Trace bilateral lower extremity edema Skin no rashes or lesions noted, no wounds, skin turgor normal, no jaundice, no petechiae and no mottling Neuro oriented x3, CN's II-XII intact bilaterally, moves all extremities and no focal motor deficits Neuro Narrative: Mild generalized weakness, reflexes 2+ throughout upper and lower extremities Sensorium / Orientation: awake, alert, oriented to person, oriented to place and oriented to time Speech: speech normal Psych affect normal Psych Narrative: Very pleasant Weight / BMI Weight Weight: 102.6 kg Body Mass Index (BMI) 30.7 ABG / Lab / Microbiology Data Result Diagrams: 03/31/21 05:50 03/31/21 05:50 Laboratory: Laboratory Results - last 24 hr 03/30/21 14:25: Troponin I High Sens 68 03/30/21 15:16: Troponin I High Sens 75 03/31/21 05:50: WBC 8.4, RBC 4.64, Hgb 15.4, Hct 47.4, MCV 102.2 H, MCH 33.2 H, MCHC 32.5 D, RDW Std Deviation 48.9 H, RDW Coeff of Bharath 13.0, Plt Count 209, MPV 10.0, Immature Gran % (Auto) 0.500, Neut % (Auto) 67.8, Lymph % (Auto) 16.8 L, Appling % (Auto) 11.5 H, Eos % (Auto) 2.4, Baso % (Auto) 1.0, Absolute Neuts (auto) 5.7, Absolute Lymphs (auto) 1.41, Nucleated RBC % 0 03/31/21 05:50: Sodium 138, Potassium 3.7, Chloride 107, Carbon Dioxide 23.0, Anion Gap 8, BUN 20 H, Creatinine 1.21, Estim Creat Clear Calc 64.13, Est GFR (MDRD) Af Amer 77, Est GFR (MDRD) Non-Af 63, BUN/Creatinine Ratio 16.5, Glucose 85, Calcium 8.7, Magnesium 2.1, Total Bilirubin 0.80, AST 22, ALT 17, Alkaline Phosphatase 44 L, Total Protein 6.8, Albumin 3.3, Globulin 3.5, Albumin/Globulin Ratio 0.9 03/31/21 05:50: Phosphorus 2.6 Microbiology: Microbiology 03/31/21 05:27 Urine, Clean Catch Legionella Antigen - Final 03/31/21 05:27 Urine, Clean Catch Streptococcus pneumoniae Antigen (M - Final 03/30/21 08:55 Nasal Secretion SARS-CoV-2 Antigen (Rapid) - Final Radiography Diagnostic Testing: Radiology Impression Carotid Duplex 03/30/21 11:48 Interpretation Summary Irregular calcific plaque in the right common carotid artery. Focal area of increased velocity in the mid right common carotid artery at 176 cm/s flow with end-diastolic velocity of 86. This would suggest moderate stenosis however criteria for the internal carotid artery do not apply to the common carotid artery Evidence of a stent in the right distal common carotid into the right internal carotid artery. The stented carotid appears to be patent and based upon velocities there is a suggestion of greater than 70% stenosis of the distal right internal carotid but this may be an overestimation secondary to the stent placement. Irregular calcific plaque within the left common carotid with evidence of stent noted within the distal left common carotid extending into the left internal carotid artery. Elevated peak systolic velocity within the left internal carotid to 252 cm second peak stock flow with an end-diastolic velocity of 138 cm/s. This would be consistent with greater than 70% stenosis. Less than 50% stenosis left external carotid artery Patent and antegrade vertebral arteries bilaterally The previous examination of December 05, 2016 did not incorporate bilateral carotid stents at that time. ____ Ordering Physician: Emilia Jasso Performed By: Bryce Moseley RVT D/C Instructions Discharge Diet: Low fat / Low cholesterol (Small bites with soft food/thin liquids) Discharge Activity: Return to Normal Activity Meaningful Use Info Meaningful Use Diagnoses (Choose all that apply): None applicable Discharge Plan Admission Admit Date/Time: 03/30/21 11:01 Primary Reason for Your Visit: Aspiration/SOB Attending Provider: Emilia Jasso Primary Care Provider: Kelley Tolbert Instructions Additional Instructions / Restrictions: 1. Please follow recommended diet of soft and bite-size textures with thin liquids and utilize compensatory strategies of small bites, small sips, no straws, eat a slow rate, use multiple [id number] swallows for every sip and alternate bites and solids. Eat while sitting upright and remain upright for 30 minutes after eating.--> If you do not follow the strategies you are at high risk of repeated hospital admissions for aspiration pneumonia 2. Please follow-up with speech therapy as an outpatient 3. swallowing difficulties are most likely related to your history of throat and tonsillar cancer 4. Please follow-up with below recommended referrals- ok to see Dr. Murphy instead of Dr. Alberto Discharge Orders/Prescriptions Prescriptions: New amoxicillin-pot clavulanate [Augmentin] 875-125 mg tablet 1 tab PO BID Qty: 12 RF: 0 Continued ergocalciferol (vitamin D2) 1,250 mcg (50,000 unit) capsule 50,000 unit PO 2XW RF: 0 levothyroxine 100 mcg tablet 100 mcg PO DAILY RF: 0 potassium chloride 10 mEq tablet extended release 20 meq PO DAILY RF: 0 umeclidinium-vilanterol 62.5-25 mcg/actuation blister with device 1 inh INHALATION DAILY RF: 0 fludrocortisone 0.1 mg tablet 0.1 mg PO TID PRN (Reason: other) RF: 0 carvedilol [Coreg] 3.125 mg tablet 3.125 mg PO ONCE Qty: 90 RF: 2 clopidogrel 75 MG tablet 75 mg PO DAILY RF: 0 albuterol sulfate 90 mcg/actuation HFA aerosol inhaler 2 puff INHALATION Q4H PRN (Reason: Sob &/Or Wheezing) RF: 0 aspirin 81 MG tablet 81 mg PO DAILY@0800 RF: 0 guaifenesin 1,200 MG tablet extended release 12hr 1,200 mg PO BID PRN (Reason: Allergy Symptoms) RF: 0 pantoprazole 20 MG tablet 40 mg PO DAILY RF: 0 multivitamin with minerals 1 EACH tablet 1 tab PO DAILY RF: 0 sertraline 100 mg tablet 50 mg PO BID RF: 0 meclizine 12.5 MG tablet 12.5 mg PO BID Qty: 60 RF: 0 sucralfate 1 GM tablet 1 tab PO TID RF: 0 prednisone 10 MG tablet 10 mg PO DAILY RF: 0 fluticasone propion-salmeterol 1 EACH blister with device 1 ea IH DAILY RF: 0 azithromycin 250 MG tablet 250 mg PO DAILY Qty: 4 RF: 0 atorvastatin 20 mg Tablet 20 mg PO DAILY RF: 0 amlodipine 2.5 mg Tablet 2.5 mg PO DAILY RF: 0 chlorthalidone 25 mg Tablet 12.5 mg PO DAILY RF: 0 ipratropium-albuterol 20-100 mcg/actuation Mist 1 puff INHALATION Q6H PRN (Reason: Wheezing) RF: 0 Referrals / Follow Up: Kelley Tolbert MD [Primary Care Provider] - In 1 Week Luther Nieto MD [NON-STAFF] - Within 2 Weeks (Call for an appt for your carotid arteries) Escobar Alberto MD [NON-STAFF] - Within 1 Month (this is for abnormalities on barium swallow with esophageal retention and retrograde flow) Adrián Drew NP, MACHINE CAPTAIN-C [NON-STAFF] - In 1 Week Disposition Disposition (needs filled in before D/C Order can be placed): Home, Self Care Charges/Coding Visit Charges Inpatient E&M: 22115 Disch Hosp
--- NOTE | 2021-03-31 13:34 | CASEMGMT ---
CLINTON GREY in to complete BENITO form with patient. CLINTON GREY explained BENITO form to patient, patient voiced understanding. Patient signed BENITO form and original filed in chart. Patient provided with copy of signed BENITO form. Patient had no further questions or concerns at this time.
--- NOTE | 2021-03-31 13:58 | PCM.DC ---
Discharge Instructions Diet Discharge Diet: Low fat / Low cholesterol (Small bites with soft food/thin liquids) Follow Up Care Test Results: Test results from this visit will be discussed in further detail at your follow-up appointment, if applicable. Discharge Plan Admission Admit Date/Time: 03/30/21 11:01 Primary Reason for Your Visit: Aspiration/SOB Attending Provider: Emilia Jasso Primary Care Provider: Kelley Tolbert Instructions Additional Instructions / Restrictions: 1. Please follow recommended diet of soft and bite-size textures with thin liquids and utilize compensatory strategies of small bites, small sips, no straws, eat a slow rate, use multiple [id number] swallows for every sip and alternate bites and solids. Eat while sitting upright and remain upright for 30 minutes after eating.--> If you do not follow the strategies you are at high risk of repeated hospital admissions for aspiration pneumonia 2. Please follow-up with speech therapy as an outpatient 3. swallowing difficulties are most likely related to your history of throat and tonsillar cancer 4. Please follow-up with below recommended referrals- ok to see Dr. Murphy instead of Dr. Alberto Discharge Orders/Prescriptions Prescriptions: New amoxicillin-pot clavulanate [Augmentin] 875-125 mg tablet 1 tab PO BID Qty: 12 RF: 0 Continued ergocalciferol (vitamin D2) 1,250 mcg (50,000 unit) capsule 50,000 unit PO 2XW RF: 0 levothyroxine 100 mcg tablet 100 mcg PO DAILY RF: 0 potassium chloride 10 mEq tablet extended release 20 meq PO DAILY RF: 0 umeclidinium-vilanterol 62.5-25 mcg/actuation blister with device 1 inh INHALATION DAILY RF: 0 fludrocortisone 0.1 mg tablet 0.1 mg PO TID PRN (Reason: other) RF: 0 carvedilol [Coreg] 3.125 mg tablet 3.125 mg PO ONCE Qty: 90 RF: 2 clopidogrel 75 MG tablet 75 mg PO DAILY RF: 0 albuterol sulfate 90 mcg/actuation HFA aerosol inhaler 2 puff INHALATION Q4H PRN (Reason: Sob &/Or Wheezing) RF: 0 aspirin 81 MG tablet 81 mg PO DAILY@0800 RF: 0 guaifenesin 1,200 MG tablet extended release 12hr 1,200 mg PO BID PRN (Reason: Allergy Symptoms) RF: 0 pantoprazole 20 MG tablet 40 mg PO DAILY RF: 0 multivitamin with minerals 1 EACH tablet 1 tab PO DAILY RF: 0 sertraline 100 mg tablet 50 mg PO BID RF: 0 meclizine 12.5 MG tablet 12.5 mg PO BID Qty: 60 RF: 0 sucralfate 1 GM tablet 1 tab PO TID RF: 0 prednisone 10 MG tablet 10 mg PO DAILY RF: 0 fluticasone propion-salmeterol 1 EACH blister with device 1 ea IH DAILY RF: 0 azithromycin 250 MG tablet 250 mg PO DAILY Qty: 4 RF: 0 atorvastatin 20 mg Tablet 20 mg PO DAILY RF: 0 amlodipine 2.5 mg Tablet 2.5 mg PO DAILY RF: 0 chlorthalidone 25 mg Tablet 12.5 mg PO DAILY RF: 0 ipratropium-albuterol 20-100 mcg/actuation Mist 1 puff INHALATION Q6H PRN (Reason: Wheezing) RF: 0 Referrals / Follow Up: Kelley Tolbert MD [Primary Care Provider] - In 1 Week Luther Nieto MD [NON-STAFF] - Within 2 Weeks (Call for an appt for your carotid arteries) Escobar Alberto MD [NON-STAFF] - Within 1 Month (this is for abnormalities on barium swallow with esophageal retention and retrograde flow) Adrián Drew NP, MUKESH-C [NON-STAFF] - In 1 Week Disposition Disposition (needs filled in before D/C Order can be placed): Home, Self Care
--- NOTE | 2021-03-31 14:03 | CASEMGMT ---
Pt set up with script for OP speech therapy at [facility]. Script faxed to [facility] and pt provided copy. Pt states no further questions/concerns/needs. Douglas ALONZO CM
== END 2021-03-31 13:20 | disposition home or self-care (01) ==
LOC: ED 10:51 → PCU 11:13
PROVIDERS: Admitting Provider Internal Medicine; Emergency Provider Emergency Medicine; PCP Internal Medicine; Visit Provider Internal Medicine
DX: J69.0 Pneumonitis due to inhalation of food and vomit (principal); R13.10 Dysphagia, unspecified; J44.0 Chronic obstructive pulmonary disease with (acute) lower respiratory infection; I13.0 Hypertensive heart and chronic kidney disease with heart failure and stage 1 through stage 4 chronic kidney disease, or unspecified chronic kidney disease; I25.10 Atherosclerotic heart disease of native coronary artery without angina pectoris; N44.00 Torsion of testis, unspecified; I50.42 Chronic combined systolic (congestive) and diastolic (congestive) heart failure; E03.9 Hypothyroidism, unspecified; E78.5 Hyperlipidemia, unspecified; I25.2 Old myocardial infarction; K21.9 Gastro-esophageal reflux disease without esophagitis; I25.5 Ischemic cardiomyopathy; F32.9 Major depressive disorder, single episode, unspecified; F41.9 Anxiety disorder, unspecified; N18.9 Chronic kidney disease, unspecified; J96.11 Chronic respiratory failure with hypoxia; R13.12 Dysphagia, oropharyngeal phase; N40.0 Benign prostatic hyperplasia without lower urinary tract symptoms; R09.89 Other specified symptoms and signs involving the circulatory and respiratory systems; E55.9 Vitamin D deficiency, unspecified; E27.40 Unspecified adrenocortical insufficiency; Z79.899 Other long term (current) drug therapy; Z91.14 Patient's other noncompliance with medication regimen; Z79.02 Long term (current) use of antithrombotics/antiplatelets; Z79.82 Long term (current) use of aspirin; Z98.84 Bariatric surgery status; Z79.52 Long term (current) use of systemic steroids
CPT/HCPCS: 36415; 71045; 74230; 80053; 83605; 83735; 83880; 84100; 84484; 85025; 85610; 85730; 87040; 87426; 87449; 92610; 92611; 93005; 93306; 93880; 94640; 94667; 94668; 96365; 96366; 97802; 99218; 99251; 99285; J7040; Q9957; A4216; G0378; G0463; J0295; J0696; J3490

== ENCOUNTER 2021-09-19 23:40 | Inpatient (IN) | payer MEDICARE, MEDICAID, SELFPAY ==
[2021-09-19 23:41] VITALS: BP 162/120; PULSE 100; RESP 18; TEMP 36.4; O2SAT 93; BMI 29.9
[2021-09-19 23:50] VITALS: BP 149/111
--- NOTE | 2021-09-19 23:52 | EKG12_ITS ---
Test Reason : CP Blood Pressure : / mmHG Vent. Rate : 100 BPM Atrial Rate : 100 BPM P-R Int : 172 ms QRS Dur : 122 ms QT Int : 354 ms P-R-T Axes : 077 010 108 degrees QTc Int : 456 ms Sinus rhythm with Fusion complexes Left bundle branch block Abnormal ECG Confirmed by SONJA HANNA, ALTAF ([id number]), business editor MARCO AMBROSIO ([id number]) on 09/21/2021 8:58:50 AM Referred By: FLYNN Confirmed By:ALTAF CASILLAS MD
--- NOTE | 2021-09-19 23:52 | EKG12_ITS ---
Test Reason : CP ADMISSION Blood Pressure : / mmHG Vent. Rate : 095 BPM Atrial Rate : 095 BPM P-R Int : 170 ms QRS Dur : 130 ms QT Int : 358 ms P-R-T Axes : 078 023 116 degrees QTc Int : 449 ms Normal sinus rhythm Non-specific intra-ventricular conduction block T wave abnormality, consider lateral ischemia Abnormal ECG Confirmed by SONJA HANNA, ALTAF ([id number]), book editor MARCO AMBROSIO ([id number]) on 09/21/2021 9:12:36 AM Referred By: ADELINE Confirmed By:ALTAF CASILLAS MD
--- NOTE | 2021-09-19 23:53 | ED.VIS.CHEST ---
HPI History of Present Illness Chief Complaint: Chest Pain Informant: patient and EMS Onset/Context/Timing Onset: Weeks (2) Activity at onset: gradual Timing: Intermittent and Lasts (10-15 min usually, until I take a carvedilol; alejandro, has been present for 1-1.5 hrs) Quality: Positive for Sharp Location: Substernal, Left Chest and - (no radiation) Current Severity: 9/10 Maximum Severity: 10/10 Worsened By: Nothing; Not Worsened By Breathing Relieved By: - (a little after EMS gave ASA) Associated Symptoms: Positive for Dyspnea ( a little, chronic unchanged); Negative for Nausea, Vomiting, Diaphoresis, Cough, Fever, Lightheadedness, Acid Reflux and Palpitations Narrative Narrative: Patient with a history of CAD/CHF/COPD for which he is on 4 L of home oxygen presenting with chest pain that has been intermittent for the past 2 weeks. He states it has been happening 3 or 4 times a day, and with each episode he takes the carvedilol 3.125 mg, which makes it resolve after 10 or 15 minutes. Tonight he did the same thing but it has not resolved prompting him to call EMS and come to the hospital to be evaluated. He states no other new symptoms and no other differences. It is mostly central lower chest and over into the left chest without any other radiation or migration. No jaw, arm, neck discomfort. States he last had a stress echocardiogram within the past year. He does not know the results but states he did not have a heart cath afterwards. He sees cardiology at [facility]. [facility] Medical History (Updated 09/20/21 @ 02:[address] Domingo Christopher MD) Acute exacerbation of CHF (congestive heart failure) Acute respiratory failure with hypoxia (10/2019) Adrenal insufficiency Aspiration into airway Atherosclerosis of coronary artery bypass graft without angina pectoris Atherosclerosis of [place] coronary artery of [place] heart without angina pectoris Bilateral carotid artery stenosis BPH (benign prostatic hyperplasia) Chest pain Chronic diastolic (congestive) heart failure Chronic kidney disease Chronic systolic (congestive) heart failure COPD (chronic obstructive pulmonary disease) CVA (cerebral vascular accident) (06/30/19) Depression Dysphagia Elevated troponin (10/2019) Essential hypertension GERD (gastroesophageal reflux disease) History of non-ST elevation myocardial infarction (NSTEMI) (10/24/19) History of throat cancer History of vertebral artery stenosis Hyperlipidemia Hypothyroidism Ischemic cardiomyopathy Non compliance w medication regimen Orthostatic hypotension Right carotid bruit Right lower lobe pneumonia (10/2019) Septic shock (10/2019) TIA (transient ischemic attack) (07/05/19) Tonsillar cancer Vertigo Home Medications clopidogrel 75 mg PO DAILY 10/12/15 [History Last Taken 06/29/19 08:00 75 mg] albuterol sulfate 90 mcg/actuation aerosol inhaler 2 puff INHALATION Q4H PRN g 05/05/19 [History Last Taken 06/29/19 22:00 2 puffs] aspirin 81 mg PO DAILY@0800 06/17/19 [History Last Taken 06/29/19 08:00 81 mg] guaifenesin 1,200 mg PO BID PRN 06/17/19 [History Last Taken 06/29/19 21:30 1200 mg] multivitamin with minerals 1 tab PO DAILY 06/17/19 [History Last Taken 06/29/19 21:30 1 tab] pantoprazole 40 mg PO DAILY 06/17/19 [History Last Taken 06/29/19 21:30 20 mg] meclizine 12.5 mg PO BID #60 tab 07/01/19 [Rx Last Taken Unknown] sertraline 100 mg tablet 50 mg PO BID tab 07/17/19 [History Last Taken Unknown] sucralfate 1 tab PO TID 01/02/20 [History Last Taken Unknown] fluticasone propion-salmeterol 1 ea IH DAILY 03/17/20 [History Last Taken Unknown] ergocalciferol (vitamin D2) 1,250 mcg (50,000 unit) capsule 50,000 unit PO 2XW cap 10/18/20 [History Last Taken Unknown] fludrocortisone 0.1 mg tablet 0.1 mg PO TID PRN tab 10/18/20 [History Last Taken Unknown] levothyroxine 100 mcg tablet 100 mcg PO DAILY tab 10/18/20 [History Last Taken Unknown] potassium chloride 10 mEq tablet,extended release 20 meq PO DAILY tab 10/18/20 [History Last Taken Unknown] umeclidinium 62.5 mcg-vilanterol 25 mcg/actuation powdr for inhalation 1 inh INHALATION DAILY ea 10/18/20 [History Last Taken Unknown] atorvastatin 20 mg PO DAILY 03/30/21 [History Last Taken Unknown] ipratropium-albuterol 1 puff INHALATION Q6H PRN 03/30/21 [History Last Taken Unknown] carvedilol 6.25 mg PO BID 09/20/21 [History Last Taken Unknown] Allergy/AdvReac Type Severity Reaction Status Date / Time ranolazine [From Ranexa] AdvReac Intermediate wake up Verified 09/19/21 23:52 at night feeling like choking ciprofloxacin [From Cipro] AdvReac Vomiting Verified 09/19/21 23:52 ciprofloxacin HCl AdvReac Vomiting Verified 09/19/21 23:52 [From Cipro] metronidazole [From Flagyl] AdvReac Vomiting Verified 09/19/21 23:52 morphine AdvReac after 2-3 Verified 09/19/21 23:52 days I turn into a monster ofloxacin [From Floxin] AdvReac Vomiting Verified 09/19/21 23:52 Family History Mother CAD (coronary artery disease) Lung cancer Father Cancer esophageal cancer Brother Diabetes Hypertension Alcoholism Surgical History H/O coronary artery bypass surgery (02/26/13) History of appendectomy History of cholecystectomy History of gastric bypass History of left common carotid artery stent placement (2018) History of left heart catheterization (06/18/19) History of right common carotid artery stent placement (2018) Social History Smoking Status: Never smoker alcohol intake: never substance use type: does not use caffeine: No what type of physical activity do you participate in: none seatbelt use: always do you feel safe at home: Yes ROS ROS ED Constitutional Constitutional ED: Denies chills or fever(s) Eyes Eyes: Denies change in vision or diplopia ENT ENT ED: Denies rhinorrhea or sore throat Cardiovascular Cardiovascular: Reports as per HPI, chest pain, edema and other Details: Edema is chronic and unchanged both legs ; Denies palpitations Respiratory/Chest Respiratory/Chest: Reports cough, dyspnea and wheezing Gastrointestinal Gastrointestinal: Denies abdominal pain, diarrhea, nausea or vomiting Genitourinary Genitourinary ED: Denies dysuria or hematuria Musculoskeletal Musculoskeletal: Denies back pain or neck pain Integumentary Denies abscess or rash Neurologic Neurologic: Denies headache(s), paresthesias or weakness Psychiatric Psychiatric: Reports anxiety and depression; Denies suicidal thoughts EXAM Physical Exam Const Vital Signs: 09/19/21 23:41 09/19/21 23:48 09/19/21 23:50 Temperature 97.5 F L Temperature Source Temporal Pulse Rate 100 Respiratory Rate 18 Respiratory Effort Normal Respiratory Pattern Normal Blood Pressure 162/120 H 149/111 H Blood Pressure Mean 134 123 Pulse Ox 93 Oxygen Delivery Method Nasal Cannula Oxygen Flow Rate (L/min) 2 09/19/21 23:54 09/20/21 00:25 09/20/21 00:34 Temperature Temperature Source Pulse Rate Respiratory Rate Respiratory Effort Respiratory Pattern Blood Pressure 88/67 L 83/66 L Blood Pressure Mean 74 71 Pulse Ox 94 Oxygen Delivery Method Nasal Cannula Oxygen Flow Rate (L/min) 2 09/20/21 01:24 Temperature Temperature Source Pulse Rate 103 H Respiratory Rate 23 H Respiratory Effort Respiratory Pattern Blood Pressure 92/74 Blood Pressure Mean 80 Pulse Ox 98 Oxygen Delivery Method Room Air Oxygen Flow Rate (L/min) Positive well nourished and well developed General Appearance ED: well developed and NAD HEENT Reports moist mucous membranes normocephalic and atraumatic Eyes PERRL and EOMs intact bilaterally Neck full ROM and supple Resp normal respiratory effort Resp Narrative: Slight end expiratory wheezes bilaterally. Coarse breath sounds in the bases that clear after the patient coughs. Cardio regular rate and regular rhythm Cardio Narrative: Mild systolic decrescendo murmur Rate: Negative for tachycardic GI non-tender and non-distended Auscultation: normoactive bowel sounds Palpation: soft Back/Spine no CVA tenderness General Back: other FROM Extremity normal to inspection General Extremety ED: Yes edema; Negative for pulses abnormal or tenderness General Extremity: edema bilateral lower extremity (symmetric) Details: mild; Negative for pulses abnormal Neuro oriented x3, CN's II-XII intact bilaterally and no sensory deficits noted Sensorium / Orientation: awake and alert Motor Exam: strength 5/5 throughout Psych mental status grossly normal, thought process normal, activity/motor behavior normal and denies suicidal ideation Skin no rashes or lesions noted and no wounds Heart Score History: Slightly/Non-Suspicious ECG: Nonspecific Repolarization Age: >/= 65 years Risk Factors: >/= 3 Risk Factors or History of CAD Troponin: >1 - <3 Normal Limit Score: 6 MDM MDM MDM Narrative Medical decision making narrative: Initially patient was fairly hypertensive. By the time nurses offered him nitroglycerin for his pain, his blood pressure had come down to the 90s, so no nitroglycerin was given and without treating him with any other medications, his pain went down to a 3/10. He states he felt much better, and I never would have come in if I only felt like this at home. Patient states he has been depressed and under a lot of stress lately and he feels that is why his chest has been bothering him. States he had a negative stress echo within the past 12 months. His initial troponin is negative, we observed him for a while and did a repeat 2-hour troponin, which actually came back elevated at 188. Given this and his history, he should be admitted for further evaluation. On reevaluation, the patient is chest pain-free. Lab Data Attestation: I reviewed the patient's lab results. Labs: Laboratory Results - last 24 hr 09/19/21 09/19/21 09/20/21 23:56 23:56 01:50 WBC 11.4 H RBC 4.62 Hgb 16.0 Hct 46.7 MCV 101.1 H MCH 34.6 H MCHC 34.3 RDW Std Deviation 47.6 H RDW Coeff of Bharath 12.7 Plt Count 208 MPV 10.2 Immature Gran % (Auto) 0.600 Neut % (Auto) 75.1 H Lymph % (Auto) 13.9 L [place] % (Auto) 8.7 Eos % (Auto) 1.3 Baso % (Auto) 0.4 Absolute Neuts (auto) 8.6 H Absolute Lymphs (auto) 1.59 Nucleated RBC % 0 Sodium 136 Potassium 4.5 Chloride 108 H Carbon Dioxide 24.0 Anion Gap 4 L BUN 22 H Creatinine 1.52 H Estim Creat Clear Calc 51.05 Est GFR (MDRD) Af Amer 59 L Est GFR (MDRD) Non-Af 49 L BUN/Creatinine Ratio 14.5 Glucose 111 H Calcium 9.6 Troponin I High Sens 25 188 H* Radiography Diagnostic Testing: Clinical Impression(s) from Imaging Studies Chest X-Ray 09/20/21 00:00 IMPRESSION: COPD. No acute findings. Electronically Signed: Wolf Brand DO at 0:40 EST , EKG Initial EKG: Attestation: I personally reviewed and interpreted this EKG as follows: Interpretation: Sinus Rhythm, No Acute Injury Pattern and LBBB (pattern; QRS slightly abnormal/wide) Comments: poor R wave progression Prior EKG tracings: available for review Prior: Changed (LBBB not technically present before but axis WNL, QRS barely wider than prior, and otherwise unchanged) Discharge Plan Dx/Rx/DC Orders Clinical Impression: Elevated troponin, Chest pain Disposition Disposition: Acute Care Hospital [facility]
[2021-09-19 23:54] VITALS: O2SAT 94
[2021-09-20] VITALS (33 sets, daily range): BP systolic 74–135; BP diastolic 57–109; PULSE 73–103; RESP 12–23; TEMP 36.4–37.1; O2SAT 89–99; BMI 27.7
[2021-09-20] LABS: Absolute Lymphocyte Count 1.59 X10^3/uL (0.83-4.51); Absolute Neutrophil Count 8.6 X10^3/uL (2.0-7.7); Basophil# 0.05 X10^3/uL; Basophil% 0.4 % (0-1); Eosinophil# 0.15 X10^3/uL; Eosinophils% 1.3 % (0-5); Hematocrit 46.7 % (40-54); Lymphocyte # 1.59 X10^3/ul (0.83-4.51); Lymphocyte % 13.9 % (19-41); Mean Corp Hgb Conc 34.3 g/dL (32-36); Mean Corpuscular Hgb 34.6 pg (27.0-32.0); Mean Corpuscular Volume 101.1 fL (80-94); Mean Platelet Vol. 10.2 fl (6.2-12.0); Monocyte# 0.99 X10^3/uL; Monocyte% 8.7 % (0-10); NRBC Flagged by Analyzer 0 % (0-5); Neutrophil # 8.56 X10^3/uL (2.7-7.7); Neutrophil % 75.1 % (47-70); Platelet Count 208 K/mm3 (150-450); RBC Distribution Width CV 12.7 % (11.6-14.6); RBC Distribution Width SD 47.6 fl (35.1-43.9); Red Blood Count 4.62 M/mm3 (4.6-6.2); White Blood Count 11.4 K/mm3 (4.4-11.0)
--- NOTE | 2021-09-20 | RAD_ITS ---
STUDY: X-RAY CHEST REASON FOR EXAM: Male, 70 years old. CHEST PAIN TECHNIQUE: Single AP portable view of the chest. COMPARISON: 03/30/2021 FINDINGS: There is hyperinflation of the lungs consistent with chronic obstructive lung disease (COPD). Lungs are clear. There is no demonstrated pleural abnormality. Sternal cerclage wires are present from a prior sternotomy. Heart size is within normal limits. Normal mediastinum and becca. Normal visualized pulmonary arteries. Normal visualized aortic arch and descending thoracic aorta. Normal visualized thoracic spine. Normal visualized ribs, clavicles, and shoulders. There is no demonstrated abnormality of the visualized soft tissue structures of the upper abdomen. RAD/Chest 1 View (Portable) IMPRESSION: COPD. No acute findings. Electronically Signed: Wolf Brand DO at 0:40 EST ,
[2021-09-20 00:28] LABS: Anion Gap 4 (5-15); BUN 22 mg/dL (7-18); BUN/Creat Ratio 14.5 RATIO (10-20); Calcium,Total 9.6 mg/dL (8.5-10.1); Chloride 108 mmol/L (98-107); Creatinine, Serum 1.52 mg/dL (0.70-1.30); EST Glomerular Filtration Rate 49 mL/min (>60); Est Glom Filt Rate - Afr Amer 59 mL/min (>60); Estimated Creatinine Clearance 51.05 ml/min; Glucose 111 mg/dL (74-106); Potassium 4.5 mmol/L (3.5-5.1); Sodium Level 136 mmol/L (136-145); Troponin-I HS 25 pg/mL (3.0-78.0)
--- NOTE | 2021-09-20 00:39 | NURSING ---
dr farrell aware did not give prn nitro d/t low bp
[2021-09-20 02:51] LABS: Troponin-I HS 188 pg/mL (3.0-78.0)
--- NOTE | 2021-09-20 03:05 | PCM.HP.STD ---
HPI - General General Date of Admission: 09/20/21 Date of Service: 09/20/21 Chief Complaint: Chest pain - 2 weeks HPI Narrative SHAYAN ROSENTHAL, is a 70 M who presents with the above ongoing for 2 weeks. He has history of CAD status post CABG, follows with Dr. Flores in the outpatient. He stated that he has been having told that sharp chest pain that goes across his chest, worse with exertion, relieved when he takes his carvedilol. He also stated that he has issues with blood pressure over some time. His blood pressure is very labile. It appears that when he is having chest pain, his blood pressure is elevated. When he takes the carvedilol, he gets relief from chest pain after about 15 minutes. On the day of admission, he had chest pain that was ongoing for more than 2 hours. He was diaphoretic, nauseous, felt lightheaded. He denied any orthopnea or leg swelling or PND. He decided to come to the emergency department last night. He does have an upcoming appointment with his primary transportation specialist. He has a history of throat cancer in remission status post radiation therapy and chemotherapy, he has baseline chronic dizziness for which she takes meclizine. Meclizine used to help, lately he still is dizzy all the time. His vitals in the ED showed blood pressure of 94/66, heart rate 81, SPO2 is 94%, on 2 L of oxygen, temperature was 97.5F. His WBC count 11.4, hemoglobin 16.0, platelet count 208. His electrolytes were unremarkable. Creatinine was 1.52, close to his baseline. Initial troponin was negative. Second troponin was 188. EKG shows normal sinus rhythm, left bundle branch block is not new. Chest x-ray shows hyperinflated lungs, otherwise unremarkable. [facility] Medical History Acute exacerbation of CHF (congestive heart failure) Acute respiratory failure with hypoxia (10/2019) Adrenal insufficiency Aspiration into airway Atherosclerosis of coronary artery bypass graft without angina pectoris Atherosclerosis of [place] coronary artery of [place] heart without angina pectoris Bilateral carotid artery stenosis BPH (benign prostatic hyperplasia) Chest pain Chronic diastolic (congestive) heart failure Chronic kidney disease Chronic systolic (congestive) heart failure COPD (chronic obstructive pulmonary disease) CVA (cerebral vascular accident) (06/30/19) Depression Dysphagia Elevated troponin (10/2019) Essential hypertension GERD (gastroesophageal reflux disease) History of non-ST elevation myocardial infarction (NSTEMI) (10/24/19) History of throat cancer History of vertebral artery stenosis Hyperlipidemia Hypothyroidism Ischemic cardiomyopathy Non compliance w medication regimen Orthostatic hypotension Right carotid bruit Right lower lobe pneumonia (10/2019) Septic shock (10/2019) TIA (transient ischemic attack) (07/05/19) Tonsillar cancer Vertigo Home Medications clopidogrel 75 mg PO DAILY 10/12/15 [History Last Taken 06/29/19 08:00 75 mg] albuterol sulfate 90 mcg/actuation aerosol inhaler 2 puff INHALATION Q4H PRN g 05/05/19 [History Last Taken 06/29/19 22:00 2 puffs] aspirin 81 mg PO DAILY@0800 06/17/19 [History Last Taken 06/29/19 08:00 81 mg] guaifenesin 1,200 mg PO BID PRN 06/17/19 [History Last Taken 06/29/19 21:30 1200 mg] multivitamin with minerals 1 tab PO DAILY 06/17/19 [History Last Taken 06/29/19 21:30 1 tab] pantoprazole 40 mg PO DAILY 06/17/19 [History Last Taken 06/29/19 21:30 20 mg] meclizine 12.5 mg PO BID #60 tab 07/01/19 [Rx Last Taken Unknown] sertraline 100 mg tablet 50 mg PO BID tab 07/17/19 [History Last Taken Unknown] sucralfate 1 tab PO TID 01/02/20 [History Last Taken Unknown] fluticasone propion-salmeterol 1 ea IH DAILY 03/17/20 [History Last Taken Unknown] ergocalciferol (vitamin D2) 1,250 mcg (50,000 unit) capsule 50,000 unit PO 2XW cap 10/18/20 [History Last Taken Unknown] fludrocortisone 0.1 mg tablet 0.1 mg PO TID PRN tab 10/18/20 [History Last Taken Unknown] levothyroxine 100 mcg tablet 100 mcg PO DAILY tab 10/18/20 [History Last Taken Unknown] potassium chloride 10 mEq tablet,extended release 20 meq PO DAILY tab 10/18/20 [History Last Taken Unknown] umeclidinium 62.5 mcg-vilanterol 25 mcg/actuation powdr for inhalation 1 inh INHALATION DAILY ea 10/18/20 [History Last Taken Unknown] atorvastatin 20 mg PO DAILY 03/30/21 [History Last Taken Unknown] ipratropium-albuterol 1 puff INHALATION Q6H PRN 03/30/21 [History Last Taken Unknown] carvedilol 6.25 mg PO BID 09/20/21 [History Last Taken Unknown] Allergy/AdvReac Type Severity Reaction Status Date / Time ranolazine [From Ranexa] AdvReac Intermediate wake up Verified 09/19/21 23:52 at night feeling like choking ciprofloxacin [From Cipro] AdvReac Vomiting Verified 09/19/21 23:52 ciprofloxacin HCl AdvReac Vomiting Verified 09/19/21 23:52 [From Cipro] metronidazole [From Flagyl] AdvReac Vomiting Verified 09/19/21 23:52 morphine AdvReac after 2-3 Verified 09/19/21 23:52 days I turn into a monster ofloxacin [From Floxin] AdvReac Vomiting Verified 09/19/21 23:52 Family History Mother CAD (coronary artery disease) Lung cancer Father Cancer esophageal cancer Brother Diabetes Hypertension Alcoholism Surgical History H/O coronary artery bypass surgery (02/26/13) History of appendectomy History of cholecystectomy History of gastric bypass History of left common carotid artery stent placement (2017) History of left heart catheterization (06/18/19) History of right common carotid artery stent placement (2017) Social History Smoking Status: Never smoker alcohol intake: never substance use type: does not use caffeine: No what type of physical activity do you participate in: none seatbelt use: always do you feel safe at home: Yes ROS ROS Narrative Constitutional:Denies: Anorexia, Chills, Fever, Night Sweats, Weight Change Eyes: Denies: Blurred vision, Cataracts, Conjunctivae Inflammation, Pain, Redness, Vision Change HEENT: Denies: Difficulty Hearing, Difficulty Swallowing, Head Aches, Hearing Changes, Sinus Congestion, Sinus Drainage Cardiovascular: See HPI Respiratory: Denies: Cough, Shortness of breath at rest, Sputum production Gastrointestinal: Denies: Abdominal Pain, Nausea, Vomiting Genitourinary: Denies: Dysuria Musculoskeletal: Denies: Joint Pain, Joint stiffness, Joint swelling, Joint Tenderness Skin: Denies: Rash, Wounds Neurological: Admits to: chronic dizziness denies: Numbness, Tingling, Focal weakness Vital Signs Vital Signs Vital Signs: 09/19/21 23:41 09/19/21 23:48 09/19/21 23:50 Temperature 97.5 F L Temperature Source Temporal Pulse Rate 100 Respiratory Rate 18 Respiratory Effort Normal Respiratory Pattern Normal Blood Pressure 162/120 H 149/111 H Blood Pressure Mean 134 123 Pulse Ox 93 Oxygen Delivery Method Nasal Cannula Oxygen Flow Rate (L/min) 2 09/19/21 23:54 09/20/21 00:25 09/20/21 00:34 Temperature Temperature Source Pulse Rate Respiratory Rate Respiratory Effort Respiratory Pattern Blood Pressure 88/67 L 83/66 L Blood Pressure Mean 74 71 Pulse Ox 94 Oxygen Delivery Method Nasal Cannula Oxygen Flow Rate (L/min) 2 09/20/21 01:24 Temperature Temperature Source Pulse Rate 103 H Respiratory Rate 23 H Respiratory Effort Respiratory Pattern Blood Pressure 92/74 Blood Pressure Mean 80 Pulse Ox 98 Oxygen Delivery Method Room Air Oxygen Flow Rate (L/min) Weight Weight: 100.4 kg Body Mass Index (BMI) 29.9 Physical Exam Narrative Physical exam: General: Alert, Oriented x3, Cooperative, No apparent distress, appears chronically unwell, on 2 L of oxygen HEENT: Atraumatic Oral: Moist Mucosa Neck: Supple Lungs: Midsternal scar, clear to auscultation Cardiovascular: HS I+II, regular, no murmurs Abdomen: Multiple scars over the abdomen, persistent wound in the PEG tube site, bowel Sounds Present, Soft, Non Tender Extremities: No edema Results Lab / Micro Data Result Diagrams: 09/19/21 23:56 09/19/21 23:56 Labs: Laboratory Results - last 24 hr 09/19/21 23:56: WBC 11.4 H, RBC 4.62, Hgb 16.0, Hct 46.7, MCV 101.1 H, MCH 34.6 H, MCHC 34.3, RDW Std Deviation 47.6 H, RDW Coeff of Bharath 12.7, Plt Count 208, MPV 10.2, Immature Gran % (Auto) 0.600, Neut % (Auto) 75.1 H, Lymph % (Auto) 13.9 L, Person % (Auto) 8.7, Eos % (Auto) 1.3, Baso % (Auto) 0.4, Absolute Neuts (auto) 8.6 H, Absolute Lymphs (auto) 1.59, Nucleated RBC % 0 09/19/21 23:56: Sodium 136, Potassium 4.5, Chloride 108 H, Carbon Dioxide 24.0, Anion Gap 4 L, BUN 22 H, Creatinine 1.52 H, Estim Creat Clear Calc 51.05, Est GFR (MDRD) Af Amer 59 L, Est GFR (MDRD) Non-Af 49 L, BUN/Creatinine Ratio 14.5, Glucose 111 H, Calcium 9.6, Troponin I High Sens 25 09/20/21 01:50: Troponin I High Sens 188 H* Radiology Impression Chest X-Ray 09/20/21 00:00 IMPRESSION: COPD. No acute findings. Electronically Signed: Wolf Brand DO at 0:40 EST , Assessment & Plan Assessment/Plan (1) Chest pain: QUALIFIERS: Chest pain type: precordial pain Qualified Code(s): R07.2 - Precordial pain (2) NSTEMI, initial episode of care: PLAN: 1. Acute NSTEMI, in a patient with history of CAD status post CABG/PAD/hypertension/hyperlipidemia MICHAEL score of 8 Initial troponin 25, second troponin 188 D-dimer is elevated. Unable to do CTA on account of CKD EKG shows normal sinus rhythm, left bundle branch block Start on heparin drip, continue carvedilol, aspirin, Cardiology consult 2. Hypertension, labile, history of adrenal insufficiency Initial blood pressure was elevated Continue to monitor 3. CKD stage 3a, Cr appears to be at baseline. Will trend in am 4. Chronic respiratory failure secondary to COPD/nocturnal hypoxia, patient stated that he is usually on 4 L of oxygen Currently saturating 95% on 2 L of oxygen, will add as needed breathing treatment, incentive spirometer 5. PAD status post bilateral carotid stents, continue on aspirin, Plavix, statin 6. History of right throat cancer status post chemotherapy and radiation, in remission for over 15 years 7. DVT prophylaxis?on heparin drip 8. CODE STATUS?full code Charges/Coding Visit Charges Inpatient E&M: 12061 Init Hosp L3
[2021-09-20 03:20] LABS: Prothrombin Time (Protime)PT. 12.3 SECONDS (11.7-14.9)
[2021-09-20 03:21] LABS: Partial Thromboplast Time 31.7 Seconds (24.1-36.2)
[2021-09-20 03:52] LABS: D-Dimer Quantitative (DVT/PE) 1.04 FEU/ug/m (0.27-0.49)
[2021-09-20] MEDS: Morphine 2 MG/ML Syringe 1 MG IV (04:19)
[2021-09-20] MEDS: CLARIFY ORDER 1 EACH NOTE (04:36)
[2021-09-20] MEDS: 0.9% Normal Saline 1,000 ML 75 ML IV (04:40)
[2021-09-20] MEDS: HEPARIN/D5w 25,000 UNITS 25,000 UNITS/250 ML IV.SOLN. 14 UNITS IV (04:45)
[2021-09-20 06:22] LABS: Absolute Lymphocyte Count 1.43 X10^3/uL (0.83-4.51); Absolute Neutrophil Count 9.5 X10^3/uL (2.0-7.7); Basophil# 0.03 X10^3/uL; Basophil% 0.2 % (0-1); Eosinophils% 1.6 % (0-5); Hematocrit 41.6 % (40-54); Hemoglobin 14.2 g/dL (13.0-16.5); Lymphocyte # 1.43 X10^3/ul (0.83-4.51); Lymphocyte % 11.8 % (19-41); Mean Corp Hgb Conc 34.1 g/dL (32-36); Mean Corpuscular Hgb 34.1 pg (27.0-32.0); Mean Corpuscular Volume 99.8 fL (80-94); Mean Platelet Vol. 10.3 fl (6.2-12.0); Monocyte# 0.87 X10^3/uL; Monocyte% 7.2 % (0-10); NRBC Flagged by Analyzer 0 % (0-5); Neutrophil # 9.54 X10^3/uL (2.7-7.7); Neutrophil % 78.7 % (47-70); Platelet Count 183 K/mm3 (150-450); RBC Distribution Width CV 12.7 % (11.6-14.6); Red Blood Count 4.17 M/mm3 (4.6-6.2); White Blood Count 12.1 K/mm3 (4.4-11.0)
[2021-09-20 06:49] LABS: ALB/GLOB Ratio 0.9 RATIO (0.9-2.4); AST(SGOT) 23 U/L (15-37); Alanine Aminotransfer ALT/SGPT 17 U/L (16-61); Albumin, Serum 3.3 g/dL (3.2-5.0); Alkaline Phosphatase 45 U/L (45-117); Anion Gap 7 (5-15); BUN 22 mg/dL (7-18); Chloride 106 mmol/L (98-107); Creatinine, Serum 1.22 mg/dL (0.70-1.30); EST Glomerular Filtration Rate 63 mL/min (>60); Est Glom Filt Rate - Afr Amer 76 mL/min (>60); Estimated Creatinine Clearance 65.49 ml/min; Globulin 3.5 g/dL (2.2-4.2); Glucose 99 mg/dL (74-106); Potassium 3.9 mmol/L (3.5-5.1); Protein, Total 6.8 g/dL (6.4-8.2); Sodium Level 137 mmol/L (136-145)
[2021-09-20] MEDS: Budesonide Respules 0.5 MG/2 ML AMPUL.NEB. INHALATION ×2 (06:57→18:55)
[2021-09-20] MEDS: Ipratropium/Albuterol Sulfate 3 ML AMPUL.NEB INHALATION ×2 (06:57→18:55)
[2021-09-20 07:47] LABS: Troponin-I HS 663 pg/mL (3.0-78.0)
[2021-09-20] MEDS: Aspirin E.C. 81 MG Tablet PO (08:11)
[2021-09-20] MEDS: Potassium Chloride Oral Tablet 20 MEQ PO (08:12)
[2021-09-20] MEDS: Pantoprazole Sodium 40 MG Tablet PO (08:12)
[2021-09-20] MEDS: Clopidogrel Bisulfate 75 MG Tablet PO (08:13)
--- NOTE | 2021-09-20 08:17 | CON.PCM.CA_ITS ---
Assessment & Plan Assessment/Plan (1) NSTEMI, initial episode of care: PLAN: The patient appears to have findings compatible with an acute non-ST segment elevation AR. At the present time he is being monitored and has been on medical management including IV heparin. The patient's case was discussed and reviewed with him. A recommendation was made to proceed with further evaluation with diagnostic cardiac catheterization and possible catheter-based PCI-if needed. The procedure and risk were discussed with the patient. At the present time the patient states he does not want to proceed with additional invasive evaluation or care. He states he would prefer to take a noninvasive evaluation of his cardiovascular status and only then consider additional invasive evaluation or care. In the interim he states he wants to continue conservative medical management. (2) Atherosclerosis of [place] coronary artery of [place] heart without angina pectoris: PLAN: The patient does have a history of underlying CAD as noted. He has undergone revascularization therapy in the past. He does have symptoms which he states are similar to his previous symptoms thus raising the concern of underlying angina pectoris. He does have findings compatible with a non-ST segment elevation AR as noted. At the moment he is chosen to continue a conservative noninvasive evaluation and only then consider further invasive evaluation or care. (3) H/O coronary artery bypass surgery: PLAN: The patient's previous diagnostic cardiac catheterization findings are noted with respect to his graft patency or lack thereof. He will continue medical management and noninvasive valuation per his request at this time. (4) Ischemic cardiomyopathy: PLAN: The patient has a history of an underlying ischemic cardiomyopathy. He has been treated medically. His most recent noninvasive evaluation with respect to his left ventricular wall motion systolic function by echocardiographic study is noted. (5) Chronic diastolic (congestive) heart failure: PLAN: The patient has a history of both systolic and diastolic CHF. Based on his recent echocardiogram it appears his overall LV systolic function was thought to be preserved. He does not appear to have any acute CHF findings at this time. He will need to continue medical management. (6) Hyperlipidemia: QUALIFIERS: Hyperlipidemia type: pure hypercholesterolemia Qualified Code(s): E78.00 - Pure hypercholesterolemia, unspecified; E78.0 - Pure hypercholesterolemia PLAN: The patient should continue risk factor evaluation and care and medical therapy as tolerated. (7) Essential hypertension: PLAN: The patient's blood pressures apparently have been quite challenging for him to control with respect to hypertension and orthostatic hypotension. This does raise a concern as to whether or not he may have some form of underlying autonomic dysfunction as well. He will need to continue medical therapy and follow-up. (8) Bilateral carotid artery stenosis: PLAN: The patient has been followed by Dr. Luther Nieto of [facility] peripheral vascular surgery. He states he has bilateral carotid artery stents. He will continue to follow with peripheral vascular surgery. Addt'l Comments This note was generated using a voice recognition system and there may be incorrect words, spelling or punctuation that were not noted when reviewing the office note prior to saving. HPI Consult Data Date of Consult: 09/20/21 HPI Narrative HPI Narrative: SHAYAN ROSENTHAL, is a 70 year old white male who presents for cardiovascular consultation based upon concerns of chest discomfort and abnormal cardiac enzymes superimposed upon a history of underlying CAD, CABG, PAD (status post bilateral carotid artery stenting procedures); ischemic mediated cardiomyopathy; chronic CHF (previously documented this combined systolic and diastolic), orthostatic hypotension, hyperlipidemia, hypertension, COPD, hypothyroidism, and history of head/neck carcinoma. The patient states he has been under a significant amount of stress at home as his spouse recently experienced a hip fracture and he is helping to take care of her. He states he has been having intermittent episodes of chest discomfort which he describes as sharp . These discomforts can come either at rest, with activity, or at night . He notes his sharp discomfort is similar to discomfort he has had before which he believes is related to his cardiovascular condition. He has not noted associated nausea, emesis, or diaphoresis. He states he has chronic shortness of breath due to his underlying COPD. He does wear O2 cannula at night. He states that he has been adjusting medications, per his physicians, to assist with his vital sign control. He also notes when he has his chest discomfort he takes carvedilol/Coreg. He believes it feels better. He noted yesterday he was having discomfort that persisted for greater length of time than usual. At that time he did feel somewhat nauseated, somewhat diaphoretic, and felt lightheaded. He elected to present to the emergency department for further evaluation. In the emergency department he was noted to be in sinus rhythm, to be somewhat hypotensive with a blood pressure reported at 94/66 mmHg, and an O2 saturation on 2 L nasal cannula of 94%. He had an initial troponin I level which was negative. A repeat troponin I level was positive at 188. His ECG demonstrated sinus rhythm with a nonspecific IVCD. His chest x- ray was reported as demonstrating no acute cardiopulmonary disease process. He was placed in the PCU for further evaluation and care. He states he has felt better since being in the PCU. He has had follow-up laboratory studies. His troponin I level did increase. He has been placed on medical therapy including IV heparin. [facility] Medical History Acute exacerbation of CHF (congestive heart failure) Acute respiratory failure with hypoxia (10/2019) Adrenal insufficiency Aspiration into airway Atherosclerosis of coronary artery bypass graft without angina pectoris Atherosclerosis of [place] coronary artery of [place] heart without angina pectoris Bilateral carotid artery stenosis BPH (benign prostatic hyperplasia) Chest pain Chronic diastolic (congestive) heart failure Chronic kidney disease Chronic systolic (congestive) heart failure COPD (chronic obstructive pulmonary disease) CVA (cerebral vascular accident) (06/30/19) Depression Dysphagia Elevated troponin (10/2019) Essential hypertension GERD (gastroesophageal reflux disease) History of non-ST elevation myocardial infarction (NSTEMI) (10/24/19) History of throat cancer History of vertebral artery stenosis Hyperlipidemia Hypothyroidism Ischemic cardiomyopathy Non compliance w medication regimen Orthostatic hypotension Right carotid bruit Right lower lobe pneumonia (10/2019) Septic shock (10/2019) TIA (transient ischemic attack) (07/05/19) Tonsillar cancer Vertigo Home Medications clopidogrel 75 mg PO DAILY 10/12/15 [History Last Taken 06/29/19 08:00 75 mg] albuterol sulfate 90 mcg/actuation aerosol inhaler 2 puff INHALATION Q4H PRN g 05/05/19 [History Last Taken 06/29/19 22:00 2 puffs] aspirin 81 mg PO DAILY@0800 06/17/19 [History Last Taken 06/29/19 08:00 81 mg] guaifenesin 1,200 mg PO BID PRN 06/17/19 [History Last Taken 06/29/19 21:30 1200 mg] multivitamin with minerals 1 tab PO DAILY 06/17/19 [History Last Taken 06/29/19 21:30 1 tab] pantoprazole 40 mg PO DAILY 06/17/19 [History Last Taken 06/29/19 21:30 20 mg] meclizine 12.5 mg PO BID #60 tab 07/01/19 [Rx Last Taken Unknown] sertraline 100 mg tablet 50 mg PO BID tab 07/17/19 [History Last Taken Unknown] sucralfate 1 tab PO PRN PRN 01/02/20 [History Last Taken Unknown] fluticasone propion-salmeterol 1 ea IH DAILY 03/17/20 [History Last Taken Unknown] ergocalciferol (vitamin D2) 1,250 mcg (50,000 unit) capsule 50,000 unit PO 2XW cap 10/18/20 [History Last Taken Unknown] fludrocortisone 0.1 mg tablet 0.1 mg PO TID PRN tab 10/18/20 [History Last Taken Unknown] levothyroxine 100 mcg tablet 100 mcg PO DAILY tab 10/18/20 [History Last Taken Unknown] potassium chloride 10 mEq tablet,extended release 20 meq PO DAILY tab 10/18/20 [History Last Taken Unknown] umeclidinium 62.5 mcg-vilanterol 25 mcg/actuation powdr for inhalation 1 inh INH ALATION DAILY ea 10/18/20 [History Last Taken Unknown] atorvastatin 20 mg PO DAILY 03/30/21 [History Last Taken Unknown] ipratropium-albuterol 1 puff INHALATION Q6H PRN 03/30/21 [History Last Taken U nknown] carvedilol 6.25 mg PO BID 09/20/21 [History Last Taken Unknown] Allergy/AdvReac Type Severity Reaction Status Date / Time ranolazine [From Ranexa] AdvReac Intermediate wake up Verified 09/19/21 23:52 at night feeling like choking ciprofloxacin [From Cipro] AdvReac Vomiting Verified 09/19/21 23:52 ciprofloxacin HCl AdvReac Vomiting Verified 09/19/21 23:52 [From Cipro] metronidazole [From Flagyl] AdvReac Vomiting Verified 09/19/21 23:52 morphine AdvReac after 2-3 Verified 09/19/21 23:52 days I turn into a monster ofloxacin [From Floxin] AdvReac Vomiting Verified 09/19/21 23:52 Family History Mother CAD (coronary artery disease) Lung cancer Father Cancer esophageal cancer Brother Diabetes Hypertension Alcoholism Surgical History H/O coronary artery bypass surgery (02/26/13) History of appendectomy History of cholecystectomy History of gastric bypass History of left common carotid artery stent placement (2018) History of left heart catheterization (06/18/19) History of right common carotid artery stent placement (2018) Social History Smoking Status: Never smoker alcohol intake: never substance use type: does not use caffeine: No what type of physical activity do you participate in: none seatbelt use: always do you feel safe at home: Yes ROS Constitutional Constitutional: Reports as per HPI Eyes Eyes: Reports as per HPI ENT HEENT: Reports as per HPI Cardiovascular Cardiovascular: Reports chest pain, chest pain at rest, chest pain with activity, diaphoresis and dizziness Respiratory/Chest Respiratory/Chest: Reports dyspnea Gastrointestinal Gastrointestinal: Reports as per HPI Genitourinary Genitourinary: Reports as per HPI Musculoskeletal Musculoskeletal: Reports as per HPI Integumentary Integumentary: Reports as per HPI Neurologic Neurologic: Reports as per HPI Physical Exam Const alert, oriented x3 and no apparent distress Orientation / Consciousness: awake HEENT normocephalic, head/scalp atraumatic and hearing grossly normal bilaterally Eyes PERRL, EOMs intact bilaterally and conjunctivae normal Neck full ROM, supple and no JVD Carotids: bruit Positive for bilateral (Right greater than left) Resp clear to auscultation bilaterally Cardio regular rate, regular rhythm, S1 normal heart sound and S2 normal heart sound GI normal to inspection, nondistended, normoactive bowel sounds Extremity no pedal edema Skin no rashes or lesions noted Neuro oriented x3, moves all extremities, no focal motor deficits and no sensory deficits noted Risk Stratification Risk Stratification Applicable: Yes Age >/= 65: Yes >/= 3 CAD Risk Factors (HTN, HLD, DM, family hx of CAD, or current smoker): Yes Aspirin Use in the Past 7 Days: Yes Severe Angina (>/= episodes in 24 hours): Yes EKG ST Changes >/= 0.5mm: No Positive Cardiac Marker: Yes MICHAEL Risk Stratification Score: 5 MICHAEL % Risk: 25% Risk Procedure Criteria Type of Procedure Procedure Type: Elective Elective Risks - COVID COVID Risk Discussion: The surgeon/proceduralist and patient have discussed in detail the risk of exposure to and/or potential harm posed by the COVID-19 virus with having a surgery/procedure at this time versus the risk of delaying the surgery/procedure. It is not possible to know either the risk of delaying the surgery or procedure or chance of getting an infection with perfect accuracy, but a joint decision was made between the patient and the surgeon/proceduralist to proceed at this time with the scheduled surgery/procedure as indicated on the consent form. Objective Data Vital Signs: Vital Signs Temp Pulse Resp BP Pulse Ox 97.7 F L 78 16 97/73 95 09/20/21 08:00 09/20/21 08:00 09/20/21 08:00 09/20/21 08:00 09/20/21 08:00 Oxygen Flow Rate (L/min) 4 Oxygen Delivery Method Nasal Cannula Weight: 221 lb 5.506 oz Body Mass Index (BMI) 27.7 Intake & Output: Intake and Output for Last 24 Hours 09/18/21 09/19/21 09/20/21 23:59 23:59 23:59 Output Total 100 / 100 Balance -100 / -100 Lab / Micro Data Result Diagrams: 09/20/21 05:41 09/20/21 05:41 Labs: Laboratory Results - last 24 hr 09/19/21 23:56: WBC 11.4 H, RBC 4.62, Hgb 16.0, Hct 46.7, MCV 101.1 H, MCH 34.6 H, MCHC 34.3, RDW Std Deviation 47.6 H, RDW Coeff of Bharath 12.7, Plt Count 208, MPV 10.2, Immature Gran % (Auto) 0.600, Neut % (Auto) 75.1 H, Lymph % (Auto) 13.9 L, Wayne % (Auto) 8.7, Eos % (Auto) 1.3, Baso % (Auto) 0.4, Absolute Neuts (auto) 8.6 H, Absolute Lymphs (auto) 1.59, Nucleated RBC % 0 09/19/21 23:56: Sodium 136, Potassium 4.5, Chloride 108 H, Carbon Dioxide 24.0, Anion Gap 4 L, BUN 22 H, Creatinine 1.52 H, Estim Creat Clear Calc 51.05, Est GFR (MDRD) Af Amer 59 L, Est GFR (MDRD) Non-Af 49 L, BUN/Creatinine Ratio 14.5, Glucose 111 H, Calcium 9.6, Troponin I High Sens 25 09/20/21 00:00: PT 12.3, INR 1.0, APTT 31.7 09/20/21 00:00: D-Dimer Quant (PE/DVT) 1.04 H* 09/20/21 01:50: Troponin I High Sens 188 H* 09/20/21 05:41: WBC 12.1 H, RBC 4.17 L, Hgb 14.2, Hct 41.6, MCV 99.8 H, MCH 34.1 H, MCHC 34.1, RDW Std Deviation 47.0 H, RDW Coeff of Bharath 12.7, Plt Count 183, MPV 10.3, Immature Gran % (Auto) 0.500, Neut % (Auto) 78.7 H, Lymph % (Auto) 11.8 L, Wayne % (Auto) 7.2, Eos % (Auto) 1.6, Baso % (Auto) 0.2, Absolute Neuts (auto) 9.5 H, Absolute Lymphs (auto) 1.43, Nucleated RBC % 0 09/20/21 05:41: Sodium 137, Potassium 3.9, Chloride 106, Carbon Dioxide 24.0, Anion Gap 7, BUN 22 H, Creatinine 1.22, Estim Creat Clear Calc 65.49, Est GFR (MDRD) Af Amer 76, Est GFR (MDRD) Non-Af 63, BUN/Creatinine Ratio 18.0, Glucose 99, Calcium 9.0, Total Bilirubin 0.50, AST 23, ALT 17, Alkaline Phosphatase 45, Total Protein 6.8, Albumin 3.3, Globulin 3.5, Albumin/Globulin Ratio 0.9 09/20/21 05:41: Troponin I High Sens 663 H* Cardiology Labs/Tests 09/19/21 23:56: WBC 11.4 H, RBC 4.62, Hgb 16.0, Hct 46.7, MCV 101.1 H, MCH 34.6 H, MCHC 34.3, Plt Count 208, MPV 10.2, Immature Gran % (Auto) 0.600, Neut % (Auto) 75.1 H, Lymph % (Auto) 13.9 L, Wayne % (Auto) 8.7, Eos % (Auto) 1.3, Baso % (Auto) 0.4, Absolute Neuts (auto) 8.6 H, Nucleated RBC % 0 09/19/21 23:56: Sodium 136, Potassium 4.5, Chloride 108 H, Carbon Dioxide 24.0, Anion Gap 4 L, BUN 22 H, Creatinine 1.52 H, Est GFR (MDRD) Af Amer 59 L, Est GFR (MDRD) Non-Af 49 L, BUN/Creatinine Ratio 14.5, Glucose 111 H, Calcium 9.6 09/20/21 00:00: PT 12.3, INR 1.0, APTT 31.7 09/20/21 00:00: D-Dimer Quant (PE/DVT) 1.04 H* 09/20/21 05:41: WBC 12.1 H, RBC 4.17 L, Hgb 14.2, Hct 41.6, MCV 99.8 H, MCH 34.1 H, MCHC 34.1, Plt Count 183, MPV 10.3, Immature Gran % (Auto) 0.500, Neut % (Auto) 78.7 H, Lymph % (Auto) 11.8 L, Wayne % (Auto) 7.2, Eos % (Auto) 1.6, Baso % (Auto) 0.2, Absolute Neuts (auto) 9.5 H, Nucleated RBC % 0 09/20/21 05:41: Sodium 137, Potassium 3.9, Chloride 106, Carbon Dioxide 24.0, Anion Gap 7, BUN 22 H, Creatinine 1.22, Est GFR (MDRD) Af Amer 76, Est GFR (MDRD) Non-Af 63, BUN/Creatinine Ratio 18.0, Glucose 99, Calcium 9.0, Total Bilirubin 0.50 Rhythm: Sinus rhythm EKG: As noted above ECHO: 03-31-2021 Interpretation Summary Normal LV size. Left ventricular systolic function is normal. The estimated ejection fraction is 55 %. Stage 1 diastolic dysfunction. Stress Test: 08-12-2017 Stress Test Report Pharmacologic myocardial perfusion stress test 66-year-old man with a history of chest pain. Stress protocol: Resting EKG demonstrates normal sinus rhythm with rate of 90 bpm normal intervals are noted. The resting blood pressure is 180/110 mmHg. 0.4 mg of re gadenoson was infused per usual protocol followed by rapid intravenous saline flush injection continuous EKG monitoring was performed. The maximum heart rate attained was 100 bpm which was 64% of the maximum predicted heart rate the maximum workload attained was 1 metabolic equivalent. At rest there were no ST or T-wave changes noted to suggest abnormal flow reserve at peak infusion no ST or T-wave changes were noted to suggest abnormal flow reserve. The resting blood pressure was 180/110 and remained flat throughout the recording. Myocardial perfusion protocol: 12.0 mCi of technetium 99m sestamibi was injected at rest. 0.4 mg of adenosine was infused per usual protocol. At peak infusion 36.0 mCi of technetium 99m sestamibi was injected. Stress images were obtained. Stress and rest images were reconstructed and compared in the short axis vertical long and horizontal long axis. Gated images were also obtained. Perfusion SPECT analysis: Review of the stress images demonstrate normal uptake of tracer noted in the septum anterior wall and inferior wall. The basal lateral wall has a small to medium sized defect present on the stress and resting images to a similar extent suggestive of a previous basal lateral infarct. No obvious reversibility is noted suggest ischemia. Gated SPECT analysis: Gated ejection fraction is noted to be 49%. Conclusion: Pharmacologic myocardial perfusion stress test with evidence of basal lateral infarct. No ischemia noted. Cardiac Cath: 06-18-2019 CONCLUSIONS Diffuse coronary artery disease with stenosis noted in the [place] ramus inter medius, moderate disease noted in the right coronary artery and severe disease noted in the distal right coronary artery and moderate disease noted in the saphenous vein graft to the diagonal vessel. RECOMMENDATIONS Medical therapy DESCRIPTION OF PROCEDURE The patient arrived to the procedure lab. The risks and benefits of the procedure as well as a full description of our services here and current unavailability of surgical backup were fully explained to the patient and/or their significant other prior to the catheterization. The Timeout was completed, verifying the correct patient and procedure. The patient's procedural site was prepped and draped in the usual fashion. Local anesthetic was given subcutaneously to right groin region with Lidocaine 2%. Using a modified Seldinger technique, arterial access was obtained via the right femoral artery, a 5Fr sheath was inserted. Left Coronary Artery selective angiography was performed in multiple views using a 5 Fr. JL4 catheter. Right Coronary Artery selective angiography was then performed in multiple views using a 5 Fr. 3DRC (Lemuel) catheter. Saphenous Vein graft to the DIAG 1 selective angiography was performed in multiple views using a 5 Fr. 3DRC (Lemuel) catheter. Left internal mammary artery graft to the LAD selective angiography was performed in multiple views using a 5 Fr. 3DRC (Lemuel) catheter. Saphenous Vein graft to the DIAG 1 selective angiography was performed in multiple views using a 5 Fr. AR MOD cat heter. Left Ventriculography was performed in GASPAR projection using a 5 Fr. Pigtail catheter. LV to AO pullback pressures were then recorded. Saphenous Vein graft to the DIAG 1 selective angiography was performed in multiple views using a 5 Fr. JR 4 catheter.The arterial sheath was pulled and manual compression applied until hemostasis is achieved. 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 COLLATERAL FLOW: Collateral flow from Right to Left CAB02-26-2013: [facility]: LEVINE to the LAD SVG [id number] to the diagonal branch and end-to-side to the circumflex branch SVG to the right PDA Radiography Diagnostic Testing: Radiology Impression Chest X-Ray 09/20/21 00:00 IMPRESSION: COPD. No acute findings. Electronically Signed: Wolf Brand DO at 0:40 EST ,
[2021-09-20] MEDS: 0.9% Saline Lock 10 ML Syringe IV ×2 (10:55→22:20)
[2021-09-20] MEDS: Morphine 2 MG/ML Syringe IV (10:56)
--- NOTE | 2021-09-20 11:20 | CASEMGMT ---
Addendum entered by Arlette Peck 09/20/21 15:18: CLINTON GREY spoke w/Mahogany @ [facility]. Current O2 orders are for 2l/m @ rest, that was received from Jovana Christopher on Jul 06, and order did not mention any increase in O2 w/exertion. (Mahogany states last noted O2 order w/exertion was from 6 l/m from 10/2020. If pt requires more than 2l/m @ rest, then he will need new/updated O2 script faxed to [facility]. Original Note: RN CM TORPEDO SHOOTER CM to room to meet with patient for initial transition planning/care coordination assessment. RN MATILDA introduced self and role at [facility]. Pt voices understanding and consents to assessment at this time. Pt resting in bed in no distress at this time. Pt is A/O at this time and answers all questions appropriately. Care providers, pharmacy, and demographics verified/updated at this time. PCP: No PCP. Pt states he used to see Dr Tolbert, but does not see her anymore. Pt provided w/list of local PCP's. He states he is interested in seeing Dr Meadows. Specialists: Dr Dunbar-cardiology, Dr Cisneros-oncology, Dr Quinn--pulmonology, Marie-AUTOMATIC OVEN OPERATOR @ [facility] Neurology, Dr Luther Nieto-[facility] surgeon @ [facility] Preferred Pharmacy: [facility] in [place] Insurance: [facility]. Has CM through [facility]ash[facility]. Last # listed for Lashay in pt's chart is: [phone]. Prescription Benefit: Yes Living Will/HPOA: Pt does not currently have LW/HCPOA LNOK: , Shelby. Daughter, Frankie. Son, Salty Living Arrangements: Lives in one-story home w/1-2 steps to enter and 2 small steps b/w kitchen and sun room. Independent w/ADL's and IADL's. Pt's just recently had hip fx and he has been helping to care for her. Dtr, Frankie, has been helping as well by getting groceries and preparing meals. Frankie is helping to look after pt's while he is hospitalized. Son, Salty, has been staying in their basement. Pt states he is a meth user and is currently in group home, but is supposed to be getting out either Saturday or Saturday and will be staying w/pt and his again. He states they have asked him to move out on a couple occasions, but states, He has nowhere else to go. Transportation: Pt states his drivers' license and he did not get it renewed in time. He currently has a permit and plans to get his license when able to. Daughter, Frankie, will take him home @ discharge. DME: States has the following DME: cane, pulse ox, O2 through [employer]. Pt states he has just been wearing it @ HS. Pt states no need for further DME at this time. HHC/SNF: No hx of either. Pt denies need for HHC. Pt wishes to return home and states has no concerns with going home at time of discharge. Pt states does not smoke cigarettes but states he has smoked marijuana for 40 yrs. CM to follow for any increase in home oxygen needs and any further discharge planning/needs. Pt voices no further concerns/needs at this time. Advised pt to ask for CM if any further questions/concerns/needs arise. Voices understanding. PLAN: Home Anson SKELTON RN CM
--- NOTE | 2021-09-20 11:50 | CASEMGMT ---
CLINTON GREY NOTE: Insurance review for hospitals In-network with [facility] Insurance if transfer is recommended is as follows: [facility], [place], [facility], [facility], [facility], [facility], [facility]), and . Anson SKELTON RN CM
--- NOTE | 2021-09-20 11:52 | CASEMGMT ---
Insurance review for hospitals In-network with [facility] Insurance if transfer is recommended is as follows: [facility], [place], [facility], [facility], [facility], [facility]), and . Anson MACDONALDN RN CM
--- NOTE | 2021-09-20 13:06 | STRESSREP_ITS ---
Stress Test Report Date: 09-20-2021 Procedure: Pharmacologic stress nuclear imaging study Indications: Unstable angina pectoris; CAD; status post CABG; non-ST segment elevation CA Consent: Per the patient Procedure: The patient underwent pharmacologic (Regadenoson 0.4mg ) evaluation with a peak heart rate of 107 beats per minute (70%predicted maximal heart rate) and a peak blood pressure of 130/72 mmHg. The baseline ECG demonstrated sinus rhythm; poor R wave progression; nonspecific ST/T wave abnormality. The peak pharmacologic ECG demonstrated somatic/motion artifact with no obvious ECG changes, however, in recovery the patient demonstrated an ECG with increased prominence of the ST/T wave abnormality in leads I and aVL as well as demonstrating findings compatible in leads II, III, and aVF with infarction block pattern with gradual resolution towards baseline greater than 35 minutes into recovery. There were rare PVCs/ventricular couplets during recovery. The patient noted chest discomfort with associated nausea during recovery- improved status post medical management with IV morphine sulfate and IV Zofran. The examination was discontinued secondary to completion of protocol. Impression: 1. Pharmacologic (Regadenoson) evaluation 2. Peak pharmacologic ECG with somatic/motion artifact with no obvious ECG changes, however, in recovery the patient demonstrated an ECG with increased prominence of the ST/T wave abnormality in leads I and aVL as well as demonstrating findings compatible in leads II, III, and aVF with infarction block pattern with gradual resolution towards baseline greater than 35 minutes into recovery.. 3. There were rare PVCs/ventricular couplets during recovery. 4. Nuclear images pending Myocardial perfusion imaging study: Technique: The patient was injected with 14.9 millicuries of technetium 99m Cardiolite and subsequently rest SPECT Cardiolite nuclear imaging was obtained in the horizontal long, vertical long, and short axis views. The patient underwent pharmacologic (Regadenoson) evaluation with a peak heart rate of 107 beats per minute (70% percent predicted maximal heart rate) and a peak blood pressure of 130/72 mmHg. The patient was injected with 45.0 millicuries of technetium 99m Cardiolite and subsequently stress SPECT Cardiolite nuclear imaging was obtained in the horizontal long, vertical long, and short axis views. A gated Cardiolite study at peak stress was obtained. Interpretation: Rest and stress SPECT Cardiolite nuclear imaging status post realignment, normalization, and attenuation correction demonstrate the appearance of diminished to absence of myocardial perfusion/tracer uptake in portions of the basal towards mid inferior lateral segments and status post stress the notation of additional diminished myocardial perfusion/tracer uptake in portions of the mid to distal anterior lateral segments. There is diminished end-systolic thickening and brightening. The gated Cardiolite study demonstrates diminished myocardial thickening and inward wall motion. The reported LVEF is 25%. Impression: 1. Rest and stress SPECT her nuclear imaging demonstrate myocardial perfusion changes compatible with an area of previous myocardial injury/infarction involving portions of the basal to mid inferolateral segments and post-rest myocardial perfusion changes appearing compatible with associated stress-induced myocardial ischemia in portions of the mid to distal anterior lateral segments. 2. The gated Cardiolite study reports an LVEF of 25%. This note was generated with EdCourageation software. It may contain incorrect words, spelling, and punctuation that were not noted in checking the note before signing.
--- NOTE | 2021-09-20 14:29 | CRPHASE1_ITS ---
Patient Communication Former Patient:: Phase I PHII Cardiac Rehab Discussed with Patient:: Yes Guide to Cardiac Rehab Given to Patient:: Yes Cardiac Rehab Facility Choice List Given to Patient:: Yes Choice Program [facility] CR PHII:: Communication Given to CR Choice Program Other:: Communication Given to CR Learning And Development Associate:: Jerardo Arriola Refer Phase II Cardiac Rehab:: Yes Sessions:: 36 sessions - 3 days/wk, 12 weeks Cardiac Rehabilitation Info Cardiac Rehabilitation Program Information: Cardiac Rehabilitation is important for patients like you who are recovering from a heart problem. Cardiac rehabilitation programs are recognized as integral to the continued care of the patient with coronary heart disease. The cardiac rehabilitation program is designed to optimize a patient's physical, psychological, and social functioning. Health med care manager work in cardiac rehabilitation programs and assist you with getting the treatments you need to get stronger and healthier - like exercise, healthy eating habits, and medications. Cardiac rehabilitation has been show to help people with heart problems live longer and have better life enjoyment than people who do not go to cardiac rehabilitation. Please contact the Cardiac Rehabilitation Program at [facility] at in two weeks if you have not heard from them.
--- NOTE | 2021-09-20 14:29 | CRPH1.INSTRU ---
General Education CAD and cardiac anatomy and function:: Patient communicates acknowledgment Explanation of diagnoses and procedures:: Patient communicates acknowledgment Sign/Symptoms of [place]:: Patient communicates acknowledgment Antiplatelet therapy: Patient communicates acknowledgment Smoking Patient Nicotine/Smoking Risk Factors Are:: Never smoked Dyslipidemia Patient Dyslipidemia Risk Factors Are:: Total Cholesterol, Triglycerides, HDL, LDL Recommendations Include:: Lipid profile provided, Reviewed NCEP/ATP guidelines, Therapeutic Lifestyle Change dietary guidelines Dyslipidemia Response Code:: Patient communicates acknowledgment Overweight/Obesity Patient Overweight/Obesity Risk Factors Are:: Overweight = 26-29 Recommendations Include:: Weight loss of 5-10%, Reduced calorie diet, Exercise 5-7 times/week Overweight/Obesity:: Patient communicates acknowledgment Hypertension Recommendations Include:: Maintain BP <130/85, DASH dietary guidelines, Decrease/maintain normal body weight, Moderation of ETOH Hypertension:: Patient communicates acknowledgment Diabetes Patient Diabetes Risk Factors Are:: No documented hx of diabetes Metabolic Syndrome Patient Metabolic Syndrome Risk Factors Are [3 of 5]:: Fasting blood sugar > 100 mg/dL, Waist circumference > 35 [female] or 40 [male], High triglyceride >150, Hypertension, Low HDL <40 [male] or < 50 [female] Recommendations Include:: Reinforce compliance to risk factor modifications, Encouraged follow-up with Primary Care Physician Metabolic Syndrome Response Code:: Patient communicates acknowledgment Sedentary Patient Sedentary Risk Factors Are:: Lack of regular exercise Recommendations Include:: Aerobic exercise 5-7 times/week for 20-30 minutes continuously, Benefits of regular exercise, Discussed home walking program, Monitored Outpatient Cardiac Rehab Sedentary Response Code:: Patient communicates acknowledgment Stress Recommendations Include:: Identification of stressors, and assessment of coping skills, Stress management techniques Stress Response Code:: Patient communicates acknowledgment
--- NOTE | 2021-09-20 14:53 | CHAPLAIN ---
Type of Pastoral Visit ___ Initial Visit ___ Follow-up Visit ___ On-call Visit ___ General Patient Visit ___ Spiritual Assessment ___ Family Conference ___ Bereavement ___ Rapid Response ___ Code Blue _x__ Other (describe below) Pastoral Care Referral From _x__ Patient ___ Family ___ Nurse ___ Physician ___ Rural Route Mail Carrier ___ Horses Or Mules Teamster ___ Other (describe below) Sacrament/Intervention ___ Active listening ___ Anointing ___ Confucianist ___ Bereavement ___ Communion ___ Jessy exploration ___ ___ Life review ___ Prayer ___ Reconciliation ___ Sacrament of Sick ___ Supportive presence ___ Wedding ___ Other (describe below) Pastoral Comments patient is not in the room; calling card left for patient for support
--- NOTE | 2021-09-20 15:39 | PCM.HOSP.N ---
Hospitalist Note Mr. Culver is a 70-year-old male who came in early this morning with chest pain. Cardiac work-up was pursued and his initial troponin was 25 however he had an rise in his troponin upon repeat to 188 and then 663 on his third troponin. He was placed on a heparin drip and cardiology consultation was placed. The patient initially refused left heart cath and preferred a nuclear stress test be performed first. The stress test was markedly abnormal and therefore it was recommended he have a left heart catheterization performed. He agreed to proceed with this. His left heart cath is pending at this time. Depending on findings with the left heart cath and the plan overall we could potentially be able to be discharged home tomorrow. Follow-up with cardiology.
--- NOTE | 2021-09-20 16:22 | NURSING ---
Report called to CLINTON Schwartz in ICU.
[2021-09-20] MEDS: 0.9% Normal Saline 1,000 ML 80 ML IV (16:52)
--- NOTE | 2021-09-20 19:06 | ECHOCS_ITS ---
Reason For Study: S/P [place] Procedure This was a 2D Doppler, Color Flow transthoracic echocardiogram. The study was technically difficult. Contrast injection was performed. Exam performed portable in ICU/CCU. Left Ventricle Normal LV size. Mild segmental systolic dysfunction (see wall motion). The estimated ejection fraction is 45 %. Diastolic function is indeterminate. Posterior-Basal: Akinetic. Infero-Basal: Akinetic. Basal inferoseptal: Hypokinetic. Mid-Anterior : Hypokinetic. Mid-Posterior: Hypokinetic. Mid-Inferior: Hypokinetic. Mid-inferoseptal : Hypokinetic. Mid-anteroseptal : Hypokinetic. Anterior [place] : Hypokinetic. Inferior [place] : Hypokinetic. Septal [place] : Hypokinetic. Right Ventricle Normal RV size. Normal systolic function. Atria Normal left atrium. Normal right atrium. No doppler evidence for ASD. Mitral Valve There is mild mitral annular calcification. Normal mitral valve. Trivial mitral valve insufficiency. Tricuspid Valve Normal tricuspid valve. Trivial tricuspid valve insufficiency. Unable to estimate RV systolic pressure/pulmonary artery pressure due to technically difficult study. Aortic Valve Trisinus/trileaflet aortic valve. Mild focal aortic valve calcification. Pulmonic Valve The pulmonic valve is not well visualized. Great Vessels The aortic root is not well visualized. Pericardium/Pleural Trivial pericardial effusion. There are no echocardiographic indications of cardiac tamponade. Medication Diluted definity 4.0ml given slow IV push to enhance endocardial definition. MMode/2D Measurements & Calculations LVIDd: 4.2 cm IVSd: 1.1 cm LAV(MOD-sp4): 28.4 ml LVIDs: 3.5 cm LVPWd: 0.60 cm RVDd: 2.4 cm FS: 16.5 % LA A4 area: 12.3 cm2 LA dimension(2D): 3.2 cm RA A4 area: 9.1 cm2 Doppler Measurements & Calculations MV E max aaron: 58.3 cm/sec Lat Peak E' Aaron: 12.6 cm/sec Med Peak E' Aaron: 7.3 cm/sec MV A max aaron: 95.9 cm/sec E/E' lat: 4.6 E/E' med: 8.0 MV E/A: 0.61 Ao V2 max: 114.0 cm/sec LV V1 max: 115.5 cm/sec Ao max P.2 mmHg LV V1 max P.4 mmHg ECHO/Echo Complete W/ Contrast Interpretation Summary The study was technically difficult. Contrast injection was performed. Mild segmental systolic dysfunction (see wall motion). The estimated ejection fraction is 45 %. Trivial mitral valve insufficiency. Trivial tricuspid valve insufficiency. Mild focal aortic valve calcification. Trivial pericardial effusion. There are no echocardiographic indications of cardiac tamponade. Unable to estimate RV systolic pressure/pulmonary artery pressure due to techni stephanie difficult study. Diastolic function is indeterminate. Ordering Physician: Abhi Flores Referring Physician: Terry Dunbar MD Performed By: Opal Blake, CRYSTALCS, RVT
--- NOTE | 2021-09-20 19:09 | CL.D_ITS ---
Patient Name: SHAYAN ROSENTHAL Study Date: 09/20/2021 Performing: Abhi Flores MD Ht: 73 inches 185 cm : 1950 Wt: 220.8 lbs 100 kg Age: 70 Gender: male BSA: 2.24 PROCEDURE(S) PERFORMED IC14-([id number])GRAFT-ANA PAULA AND/OR PTCA, SINGLE GRAFT DC03-([id number])LHC/COR/LV/CABG CLINICAL PROFILE AND INDICATIONS Indications: ACS <= 24 hrs, Worsening Angina, Suspected CAD Heart Failure: None Stress/Imaging Date: 09/20/2021tress Test with SPECT MPI: Positive High Risk Angina Classification Anginal Classification w/in 2 Weeks: CCS IV CAD Presentations: Non-STEMI. CONCLUSIONS Elevated Left Ventricular End Diastolic Pressure Segmented LV systolic dysfunction- Moderate - Severe LVEF: by LV gram 30 % [place] Multivessel CAD LEVINE to LAD: patent SVG to DX1: patent SVG to RCA: occluded (chronic) Left to Right Collateral Flow Right to Left Collateral Flow Right to Right Collateral Flow RECOMMENDATIONS Risk factor modification Medical therapy Referred for immediate PCI of the SVG to DX1 Case discussed / reviewed with Dr. Arriola of Interventional Cardiology DESCRIPTION OF PROCEDURE The patient arrived to the procedure lab. The risks and benefits of the procedure as well as a full d escription of our services here and current unavailability of surgical backup were fully explained to the patient and/or their significant other prior to the catheterization. The Timeout was completed, verifying the correct patient and procedure. The patient's procedural site was prepped and draped in the usual fashion. Local anesthetic was given subcutaneously to right groin region with Lidocaine 2% by Dr Arriola. Using a modified Seldinger technique, arterial access was obtained via the right fem oral artery, a 4Fr sheath was inserted by Dr Arriola Left Coronary Artery selective angiography wa s performed in multiple views using a 4 Fr. JL5 catheter. Right Coronary Artery selective angiography was then performed in multiple views using a 4 Fr. 3DRC catheter. Saphenous Vein graft to the DIAG 1 selective angiography was performed in multiple views using a 4 Fr. JR4 catheter. Left internal mammary artery graft to the LAD selective angiography was performed in multiple views using a 4 Fr. JR4 catheter. Left internal mammary artery graft to the LAD selective angiography was perform ed in multiple views using a 4 Fr. IM catheter.Contrast was injected through the sheath and the Right Iliac and Femoral artery were assessed for possible closure device.The arterial sheath was sutured i n place and capped CORONARY ANGIOGRAPHY DOMINANCE: Right Dominant LEFT HEART ASSESSMENT Left Ventricular Ejection Fraction: by LV Gram 30 % Anterior Hypokinesis. Inferior Basal Hypokinesis. Inferior Mid Hypokinesis. Apical Akinesis Elevated Left Ventricular End Diastolic Pressure LVEDP: 26 mmHg LEFT MAIN: Distal: long: diffuse: 50 % Stenosis LEFT ANTERIOR DESCENDING ARTERY: OSTIAL LAD: is occluded MID LAD: fills from LEVINE graft with subsequent mid to distal diffuse high grade stenosis CIRCUMFLEX ARTERY: OSTIAL CIRC: is occluded MID CIRC: filling partially from right to left collateral flow OM 1: Proximal - filling partially from right to left collateral flow RIGHT CORONARY ARTERY: Mild luminal irregularities MID RCA: diffuse: hazy: 25 % Stenosis DISTAL RCA: / RPDA / RAVS / RPL: filling late and partially from right to right collateral flow and l eft to right collateral flow GRAFTS: LEVINE graft to the Mid LAD is patent Saphenous Vein graft to the 1st Diagonal proximal: 95 % stenosis Saphenous Vein graft to the RCA is totally occluded (chronic) COLLATERAL FLOW: Collateral flow from Left to Right Collateral flow from Right to Left Collateral flow from Right to Right AORTIC ROOT: Angiographically normal COMPLICATIONS No Complications PROCEDURE MEDICATIONS Versed 1 mg IV Versed 0.5 mg IV Fentanyl 25 mcg IV Oxygen: 2 L/min via nasal cannula Heparin 8000 unit(s) IV 09/20/2021 12:59:01 IV Bolus: .9 NaCl 300 ml total 09/20/2021 13:48:56 SUMMARY OF HEMODYNAMIC DATA Time AIR REST ECG 11:57:16 ECG 12:04:34 AO 81/39 (52) SA 12:11:31 AO 83/59 (70) 12:22:57 LV 97/1, 21 12:43:48 LV 97/1, 20 12:43:54 LV 100/3, 27 12:44:47 LVp 102/0, 26 12:44:51 AOp 105/59 (78) 12:44:56 AO 113/69 (86) 13:28:49 Signed By Abhi Flores MD On 09/20/2021 19:08:35 Abhi Flores MD
[2021-09-20 19:47] LABS: ACT Activated Clotting Time 172 sec (74-137)
[2021-09-20] MEDS: Sertraline 50 MG Tablet PO (22:13)
[2021-09-20] MEDS: Meclizine 12.5 MG Tablet PO (22:13)
[2021-09-20] MEDS: Atorvastatin Calcium 20 MG Tablet PO (22:13)
[2021-09-20] MEDS: Acetaminophen 325 MG Tablet 650 MG PO (22:19)
--- NOTE | 2021-09-20 23:52 | EKG12_ITS ---
Test Reason : POST PCI Blood Pressure : / mmHG Vent. Rate : 076 BPM Atrial Rate : 076 BPM P-R Int : 182 ms QRS Dur : 098 ms QT Int : 412 ms P-R-T Axes : 067 081 099 degrees QTc Int : 463 ms Normal sinus rhythm ST & T wave abnormality, consider lateral ischemia Prolonged QT Abnormal ECG Confirmed by SONJA HANNA, ALTAF ([id number]), editorial cartoonist MARCO AMBROSIO ([id number]) on 09/27/2021 8:17:05 AM Referred By: RICO Confirmed By:ALTAF CASILLAS MD
[2021-09-21] VITALS (14 sets, daily range): BP systolic 69–110; BP diastolic 54–90; PULSE 85–101; RESP 16–26; TEMP 36.6–36.7; O2SAT 90–97
[2021-09-21] MEDS: Hydrocortisone Sod Succinate 100 MG/2 ML Vial 50 MG IV ×3 (03:43→11:10)
[2021-09-21 04:04] LABS: Absolute Neutrophil Count 8.2 X10^3/uL (2.0-7.7); Basophil# 0.05 X10^3/uL; Basophil% 0.5 % (0-1); Eosinophil# 0.14 X10^3/uL; Eosinophils% 1.3 % (0-5); Hematocrit 39.1 % (40-54); Hemoglobin 13.5 g/dL (13.0-16.5); Lymphocyte % 10.4 % (19-41); Mean Corp Hgb Conc 34.5 g/dL (32-36); Mean Corpuscular Volume 101.3 fL (80-94); Mean Platelet Vol. 10.2 fl (6.2-12.0); Monocyte% 9.5 % (0-10); NRBC Flagged by Analyzer 0 % (0-5); Neutrophil # 8.22 X10^3/uL (2.7-7.7); Neutrophil % 77.8 % (47-70); Platelet Count 168 K/mm3 (150-450); RBC Distribution Width CV 12.8 % (11.6-14.6); Red Blood Count 3.86 M/mm3 (4.6-6.2); White Blood Count 10.6 K/mm3 (4.4-11.0)
[2021-09-21 04:08] LABS: Anion Gap 5 (5-15); BUN 17 mg/dL (7-18); Calcium,Total 8.1 mg/dL (8.5-10.1); Chloride 109 mmol/L (98-107); EST Glomerular Filtration Rate 79 mL/min (>60); Est Glom Filt Rate - Afr Amer 95 mL/min (>60); Glucose 81 mg/dL (74-106); Potassium 4.3 mmol/L (3.5-5.1); Sodium Level 139 mmol/L (136-145)
[2021-09-21] MEDS: Ipratropium/Albuterol Sulfate 3 ML AMPUL.NEB INHALATION (07:14)
[2021-09-21] MEDS: Budesonide Respules 0.5 MG/2 ML AMPUL.NEB. INHALATION (07:14)
--- NOTE | 2021-09-21 09:00 | CL.I_ITS ---
Patient Name: SHAYAN ROSENTHAL Study Date: 09/20/2021 Performing: Dylon Arriola MD Ht: 73 inches 185 cm : 1950 Wt: 220.8 lbs 100 kg Age: 70 Gender: male BSA: 2.24 PROCEDURE(S) PERFORMED IC14-([id number])GRAFT-ANA PAULA AND/OR PTCA, SINGLE GRAFT CLINICAL PROFILE AND CO-MORBIDITIES Indications: ACS <= 24 hrs, Worsening Angina, Suspected CAD Heart Failure: None Stress/Imaging Date: 09/20/2021 Stress Test with SPECT MPI: Positive High Risk Angina Classification Anginal Classification w/in 2 Weeks: CCS IV CAD Presentations: Non-STEMI. CONCLUSIONS Successful PCI with ANA PAULA to SVG to D1 RECOMMENDATIONS DESCRIPTION OF PROCEDURE The patient arrived to the procedure lab. The risks and benefits of the procedure as well as a full d escription of our services here and current unavailability of surgical backup were fully explained to the patient and/or their significant other prior to the catheterization. The Timeout was completed, verifying the correct patient and procedure. The patient's procedural site was prepped and draped in the usual fashion. Local anesthetic was given subcutaneously to right groin region with Lidocaine 2% by Dr Arriola Using a modified Seldinger technique,arterial access was obtained via the right femor al artery, a 4Fr sheath was inserted by Dr Arriola Left Coronary Artery selective angiography was p erformed in multiple views using a 4 Fr. JL5 catheter. Right Coronary Artery selective angiography wa s then performed in multiple views using a 4 Fr. 3DRC catheter. Saphenous Vein graft to the DIAG 1 se lective angiography was performed in multiple views using a 4 Fr. JR4 catheter. Left internal mammary artery graft to the LAD selective angiography was performed in multiple views using a 4 Fr. JR4 catheter. Left internal mammary artery graft to the LAD selective angiography was perform ed in multiple views using a 4 Fr. IM catheter.The images were reviewed and options discussed. A deci willie was then made to proceed with an Intervention, IVUS or other adjunct procedure. Arterial sheath was exchanged for a 6 Fr Sheath. JR 4 Guide catheter was inserted and engaged int o the SVG to the 1st Diagonal. Filter wire 3.5-5.5 Guide wire was advanced to the 1st Diagonal. JR 4 Guide catheter was exchanged for a AL 1 3x12 Emerge Balloon catheter was inserted. Balloon catheter w as advanced across lesion in the graft to the 1st Diagonal. PTCA balloon inflated at 6 atms for 12 se cs. PTCA balloon inflated at 10 atms for 8 secs. PTCA balloon inflated at 10 atms for 10 secs. PTCA b alloon inflated at 10 atms for 8 secs. Angiogram performed post balloon dilatation. 3.5x18 [place] Or siro Drug Eluting stent was inserted. Drug Eluting stent was advanced across the lesion in the graft to the 1st Diagonal. Angiogram performed post stent deployment. Angiogram performed post stent deploy ment. Contrast was injected through the sheath and the Right Iliac and Femoral artery were assessed f or possible closure device. The arterial sheath was sutured in place and capped INTERVENTION INFORMATION LESION SITE: Vein > to 1st Diagonal Segment Number: 15-First diagonal branch segment - 1st Diag , Le willie Location: Body Lesion Complexity: High/C, chronic total occlusion: No, lesion at bifurcation: No, thrombus present: Yes, lesion length: 15 mm, culprit lesion: Yes, Previously treated lesion: No Pre Stenosis: 95 % Pre intervention MICHAEL flow: 3 PROCEDURE: Drug Eluting Stent with pre dilatation. Post Stenosis: 0 % Post intervention MICHAEL flow: 3 Lesion Devices: Medtronic 6 Fr JR4.0 100cm Guide Catheter Hang Sci Large Vessel 3.5-5.5 Filter Wire 190cm Medtronic 6 Fr AL1.0 100cm Guide Catheter Hang Sci EMERGE MR 3.00x12 BALLOON Biotronik Orsiro [place] MR ANA PAULA 3.5x18 COMPLICATIONS No Complications PROCEDURE MEDICATIONS Versed 1 mg IV Versed 0.5 mg IV Fentanyl 25 mcg IV Oxygen: 2 L/min via nasal cannula Heparin 8000 unit(s) IV 09/20/2021 12:59:01 IV Bolus: .9 NaCl 300 ml total 09/20/2021 13:48:56 SUMMARY OF HEMODYNAMIC DATA Time AIR REST ECG 11:57:16 ECG 12:04:34 AO 81/39 (52) SA 12:11:31 AO 83/59 (70) 12:22:57 LV 97/1, 21 12:43:48 LV 97/1, 20 12:43:54 LV 100/3, 27 12:44:47 LVp 102/0, 26 12:44:51 AOp 105/59 (78) 12:44:56 AO 113/69 (86) 13:28:49 Signed By Dylon Arriola MD On 09/21/2021 08:59:35 Dylon Arriola MD
--- NOTE | 2021-09-21 09:44 | CASEMGMT ---
Addendum entered by Arlette Peck 09/21/21 13:12: Ambulatory pulse ox has been completed. Pt does not qualify for more than 2l/m @ rest and 2l/m w/exertion, which is pt's baseline. Pt made aware. He states he has been working w/Dr Quinn's office and his insurance co to have repeat overnight pulse oximetry done and plans to f/u with them after discharge as well. Per [facility] @ [facility], they will also f/u with pt re: repeat overnight pulse oximetry testing. Addendum entered by Arlette Peck 09/21/21 09:57: Pt does not have portable O2 tank w/him @ [facility]. Pt states he can ask his daughter, Frankie, if she can bring it in when she picks him to go home on @ d/c. Original Note: CLINTON GREY NOTE: Spoke w/[facility] @ [facility]. Clarification received. Their current O2 orders are 2 l/m continuously. Pt will need Home O2 testing completed prior to discharge, starting on 2l/m. CM to fax updated O2 script to [facility] of pt qualifies for more than 2l/m. Anson SKELTON RN, CM
[2021-09-21] MEDS: Pantoprazole Sodium 40 MG Tablet PO (10:20)
[2021-09-21] MEDS: Sucralfate 1 GM Tablet PO (10:20)
[2021-09-21] MEDS: Meclizine 12.5 MG Tablet PO (10:20)
[2021-09-21] MEDS: Clopidogrel Bisulfate 75 MG Tablet PO (10:20)
[2021-09-21] MEDS: Sertraline 50 MG Tablet PO (10:20)
[2021-09-21] MEDS: Aspirin E.C. 81 MG Tablet PO (10:20)
[2021-09-21] MEDS: Potassium Chloride Oral Tablet 20 MEQ PO (10:20)
[2021-09-21] MEDS: Multivitamins,Ther W-Minerals Tablet 1 TABLET PO (10:20)
--- NOTE | 2021-09-21 12:12 | CHAPLAIN ---
Type of Pastoral Visit _x__ Initial Visit ___ Follow-up Visit ___ On-call Visit ___ General Patient Visit ___ Spiritual Assessment ___ Family Conference ___ Bereavement ___ Rapid Response ___ Code Blue ___ Other (describe below) Pastoral Care Referral From _x__ Patient ___ Family ___ Nurse ___ Physician ___ Station Superintendent ___ Docking Pilot ___ Other (describe below) Sacrament/Intervention _x__ Active listening ___ Anointing ___ Sikhism ___ Bereavement ___ Communion _x__ Jessy exploration ___ _x__ Life review ___ Prayer ___ Reconciliation ___ Sacrament of Sick _x__ Supportive presence ___ Wedding ___ Other (describe below) Pastoral Comments patient led the discussion with description of his life, his ideas and thoughts, his behaviors and beliefs; pt expects to go home soon; pt wants to be home with who also has physical needs; daughter is helping at home too;
--- NOTE | 2021-09-21 12:46 | PCM.PN.CARD ---
Subjective Subjective The patient states he feels much better since his PCI. He states he has even refused morphine based upon the lack of need of such an agent based upon the lack of ongoing chest discomfort. Objective Data Vital Signs: Vital Signs Temp Pulse Resp BP Pulse Ox 98.1 F 87 16 110/90 H 97 09/21/21 11:00 09/21/21 11:00 09/21/21 11:00 09/21/21 11:00 09/21/21 11:00 Oxygen Flow Rate (L/min) [ 2 AMBULATING with Oxygen #1] Oxygen Flow Rate (L/min) [At 2 REST with Oxygen] Oxygen Flow Rate (L/min) 2 Oxygen Delivery Method Nasal Cannula Weight: 213 lb 6.519 oz Body Mass Index (BMI) 27.7 Intake & Output: Intake and Output for Last 24 Hours 09/19/21 09/20/21 09/21/21 23:59 23:59 23:59 Intake Total 1513.53 / 1753.53 1100 / 1100 Output Total 100 / 700 1350 / 1350 Balance 1413.53 / 1053.53 -250 / -250 Lab / Micro Data Result Diagrams: 09/21/21 03:30 09/21/21 03:30 Labs: Laboratory Results - last 24 hr 09/20/21 17:25: Activated Clotting Time 172 H 09/21/21 03:30: WBC 10.6, RBC 3.86 L, Hgb 13.5, Hct 39.1 L, MCV 101.3 H, MCH 35.0 H, MCHC 34.5, RDW Std Deviation 48.0 H, RDW Coeff of Bharath 12.8, Plt Count 168, MPV 10.2, Immature Gran % (Auto) 0.500, Neut % (Auto) 77.8 H, Lymph % (Auto) 10.4 L, [place] % (Auto) 9.5, Eos % (Auto) 1.3, Baso % (Auto) 0.5, Absolute Neuts (auto) 8.2 H, Absolute Lymphs (auto) 1.10, Nucleated RBC % 0 09/21/21 03:30: Sodium 139, Potassium 4.3, Chloride 109 H, Carbon Dioxide 25.0, Anion Gap 5, BUN 17, Creatinine 1.00, Estim Creat Clear Calc 79.90, Est GFR (MDRD) Af Amer 95, Est GFR (MDRD) Non-Af 79, BUN/Creatinine Ratio 17.0, Glucose 81, Calcium 8.1 L 09/21/21 03:30: Cortisol 69.10 H Cardiology Labs/Tests 09/21/21 03:30: WBC 10.6, RBC 3.86 L, Hgb 13.5, Hct 39.1 L, MCV 101.3 H, MCH 35.0 H, MCHC 34.5, Plt Count 168, MPV 10.2, Immature Gran % (Auto) 0.500, Neut % (Auto) 77.8 H, Lymph % (Auto) 10.4 L, [place] % (Auto) 9.5, Eos % (Auto) 1.3, Baso % (Auto) 0.5, Absolute Neuts (auto) 8.2 H, Nucleated RBC % 0 09/21/21 03:30: Sodium 139, Potassium 4.3, Chloride 109 H, Carbon Dioxide 25.0, Anion Gap 5, BUN 17, Creatinine 1.00, Est GFR (MDRD) Af Amer 95, Est GFR (MDRD) Non-Af 79, BUN/Creatinine Ratio 17.0, Glucose 81, Calcium 8.1 L Rhythm: Sinus rhythm Radiography Diagnostic Testing: Radiology Impression Echocardiogram 09/20/21 19:06 Interpretation Summary The study was technically difficult. Contrast injection was performed. Mild segmental systolic dysfunction (see wall motion). The estimated ejection fraction is 45 %. Trivial mitral valve insufficiency. Trivial tricuspid valve insufficiency. Mild focal aortic valve calcification. Trivial pericardial effusion. There are no echocardiographic indications of cardiac tamponade. Unable to estimate RV systolic pressure/pulmonary artery pressure due to technically difficult study. Diastolic function is indeterminate. Ordering Physician: Abhi Flores Referring Physician: Terry Dunbar MD Performed By: Opal Blake, RDCS, RVT Physical Exam Const alert, oriented x3 and no apparent distress Orientation / Consciousness: awake HEENT normocephalic, head/scalp atraumatic and hearing grossly normal bilaterally Eyes PERRL, EOMs intact bilaterally and conjunctivae normal Neck full ROM, supple and no JVD Carotids: bruit Positive for bilateral (Right greater than left) Resp clear to auscultation bilaterally Cardio regular rate, regular rhythm, S1 normal heart sound and S2 normal heart sound GI normal to inspection, nondistended, normoactive bowel sounds Extremity no pedal edema Peripheral Pulses: Yes femoral pulses present right (No bruits: No hematoma: Positive ecchymoses at the cardiac catheterization site) 2+ Skin no rashes or lesions noted Neuro oriented x3, moves all extremities, no focal motor deficits and no sensory deficits noted Assessment & Plan Assessment/Plan (1) NSTEMI, initial episode of care: PLAN: The patient appears to have findings compatible with an acute non-ST segment elevation MO. The patient has undergone subsequent noninvasive and invasive evaluation. This led to the diagnosis of progressive CAD/SVG graft vessel disease. He subsequently received a PCI/stent to the SVG to the diagonal branch system. He appears to be symptomatically improved at this time. He will continue medical therapy and follow-up. (2) Atherosclerosis of seneca coronary artery of seneca heart without angina pectoris: PLAN: The patient does have a history of underlying CAD as noted. He has undergone repeat noninvasive and invasive evaluation. He is now status post percutaneous based revascularization as noted above. He will continue medical therapy. (3) H/O coronary artery bypass surgery: PLAN: The patient's LVEINE to the LAD is patent. Unfortunately the LAD system distal to the LEVINE graft is of small caliber and demonstrates severe diffuse high-grade disease. The patient's SVG to the diagonal branch was patent. It did require PCI/stent. The patient's SVG to the RCA system is chronically occluded. (4) Ischemic cardiomyopathy: PLAN: The patient's LV systolic function appeared to be diminished based upon his pharmacologic stress nuclear imaging gated images and the diagnostic cardiac catheterization/left ventriculogram. Status post his PCI, and echo performed today, suggests he still has left ventricular regional wall motion abnormalities but his overall LVEF appears to be approximately 45%. He will need continued medical therapy and outpatient follow-up. (5) Chronic diastolic (congestive) heart failure: PLAN: The patient does not appear to demonstrate ongoing issues of classic CHF. He will continue medical management. (6) Hyperlipidemia: QUALIFIERS: Hyperlipidemia type: pure hypercholesterolemia Qualified Code(s): E78.00 - Pure hypercholesterolemia, unspecified; E78.0 - Pure hypercholesterolemia PLAN: The patient should continue risk factor evaluation and care and medical therapy as tolerated. (7) Essential hypertension: PLAN: The patient's blood pressures apparently have been quite challenging for him to control with respect to hypertension and orthostatic hypotension. This does raise a concern as to whether or not he may have some form of underlying autonomic dysfunction as well. He will need to continue medical therapy and follow-up. (8) Bilateral carotid artery stenosis: PLAN: The patient has been followed by Dr. Luther Nieto of [facility] peripheral vascular surgery. He states he has bilateral carotid artery stents. He will continue to follow with peripheral vascular surgery. Addt'l Comments The patient's case has been discussed and reviewed with the patient and the [facility] staff. This note was generated using a voice recognition system and there may be incorrect words, spelling or punctuation that were not noted when reviewing the office note prior to saving.
--- NOTE | 2021-09-21 13:08 | DS.PCM_ITS ---
Providers Date of Admission: 09/20/21 Primary Care Physician: Dr. Terry Dunbar MD Consultations 09/20/21 03:50 Consult: Cardiology Routine Consulting Provider: Porfirio Zimmerman Reason for Consult: NSTEMI EMERGENT Consult: No MD Notified: Yes Date Notified: 09/20/21 Time Notified: 07:18 Method of Notification: Text Reason For Visit: NSTEMI Diagnosis Discharge Diagnosis (1) NSTEMI, initial episode of care: Status: Acute Code(s): I21.4 - Non-ST elevation (NSTEMI) myocardial infarction (2) Atherosclerosis of viejas coronary artery of viejas heart without angina pectoris: Status: Chronic Code(s): I25.10 - Atherosclerotic heart disease of viejas coronary artery without angina pectoris (3) H/O coronary artery bypass surgery: Status: Resolved Code(s): Z95.1 - Presence of aortocoronary bypass graft (4) Ischemic cardiomyopathy: Status: Resolved Code(s): I25.5 - Ischemic cardiomyopathy (5) Chronic diastolic (congestive) heart failure: Status: Chronic Code(s): I50.32 - Chronic diastolic (congestive) heart failure (6) Hyperlipidemia: Status: Chronic Code(s): E78.5 - Hyperlipidemia, unspecified Qualifiers: Hyperlipidemia type: pure hypercholesterolemia Qualified Code(s): E78.00 - Pure hypercholesterolemia, unspecified; E78.0 - Pure hypercholesterolemia (7) Essential hypertension: Status: Chronic Code(s): I10 - Essential (primary) hypertension (8) Bilateral carotid artery stenosis: Status: Chronic Code(s): I65.23 - Occlusion and stenosis of bilateral carotid arteries Medications at Discharge Home Medications clopidogrel 75 mg PO DAILY 10/12/15 albuterol sulfate 90 mcg/actuation aerosol inhaler 2 puff INHALATION Q4H PRN g 05/05/19 aspirin 81 mg PO DAILY@0800 06/17/19 guaifenesin 1,200 mg PO BID PRN 06/17/19 multivitamin with minerals 1 tab PO DAILY 06/17/19 pantoprazole 40 mg PO DAILY 06/17/19 meclizine 12.5 mg PO BID #60 tab 07/01/19 sertraline 100 mg tablet 50 mg PO BID tab 07/17/19 sucralfate 1 tab PO PRN PRN 05/30/20 fluticasone propion-salmeterol 1 ea IH DAILY 03/17/20 ergocalciferol (vitamin D2) 1,250 mcg (50,000 unit) capsule 50,000 unit PO 2XW cap 10/18/20 fludrocortisone 0.1 mg tablet 0.1 mg PO TID PRN tab 10/18/20 levothyroxine 100 mcg tablet 100 mcg PO DAILY tab 10/18/20 potassium chloride 10 mEq tablet,extended release 20 meq PO DAILY tab 10/18/20 umeclidinium 62.5 mcg-vilanterol 25 mcg/actuation powdr for inhalation 1 inh INHALATION DAILY ea 10/18/20 atorvastatin 20 mg PO DAILY 03/30/21 ipratropium-albuterol 1 puff INHALATION Q6H PRN 03/30/21 carvedilol 6.25 mg PO BID 09/20/21 Hospital Course Procedures 2-D Echocardiogram, Cardiac catheterization and Nuclear stress test Summary of Care Provided Minutes Spent on Discharge: 41 Hospital Course: Mr. Culver is a 70-year-old white male who presented to the emergency department at [facility] on 09/20/2021 with chest pain that has been ongoing for approximately 2 weeks. He has a marked history of coronary artery disease and is status post CABG. He is follows outpatient with Dr. Dunbar. Upon presentation he reported that he had sharp chest pain that radiated across his chest, was worse with exertion and was relieved when he would take his carvedilol. On the day of admission he had been having chest pain that had been ongoing for more than 2 hours that was associated with diaphoresis, nausea and lightheadedness. In the emergency department his vital signs were overall stable, he had a mildly elevated white count on his CBC at 11.4, his BMP was relatively normal with a serum creatinine being elevated but at his baseline and his initial troponin was negative. However, his second troponin increased to 188. A D-dimer was obtained and was elevated however we were unable to do a CTA given his CKD. His EKG showed normal sinus rhythm with a chronic left bundle branch block but no acute changes. He was started on a heparin drip his carvedilol was continued and he was continued on his home aspirin. Given his elevated troponin cardiology was consulted and initially recommended the patient go for cardiac catheterization but he deferred and preferred to go for stress test. Stress test was performed on the a.m. of 09/20/2021 and demonstrated myocardial perfusion changes compatible with an area of previous myocardial infarction as well as changes compatible with stress-induced myocardial ischemia in portions of the mid and distal anterior lateral segments. Given those findings, a left heart catheterization was recommended to the patient and he was agreeable. He was taken to the [facility] in the afternoon where he was found to have a lesion in his SVG to the DX1. He was referred for immediate PCI which was performed by Dr. Arriola. The chest pain he was having had completely resolved by the a.m. of 09/21/2021. An echocardiogram was performed to reassess his LV and his echo showed LV regional wall motion abnormalities but his overall EF appeared to be 45%. He was reevaluated by cardiology and cleared to be discharged. He is to continue his home medications as ordered including aspirin, Plavix, carvedilol, and atorvastatin. He is not on an ST[place] inhibitor secondary to chronic labile hypotension. He was discharged home in stable condition and instructed to follow-up with Dr. Rossy العلي in 5 to 7 days. Discharge diagnoses: NSTEMI CAD History of CABG Ischemic cardiomyopathy Chronic diastolic heart failure Hyperlipidemia Adrenal insufficiency Bilateral carotid artery stenosis COPD BPH CKD stage IIIb History of stroke GERD Depression History of tonsillar cancer Physical Exam Const alert, oriented x3 and no apparent distress Constitutional Narrative: Overweight upper middle-aged white male sitting up in bed, nontoxic, appears comfortable, anxious to go home, mildly agitated as we are not able to give him his home caffeine tablets that he takes daily General Appearance: cooperative, comfortable, well kempt and well developed Orientation / Consciousness: awake Nutritional Appearance: overweight HEENT normocephalic, head/scalp atraumatic and moist oral mucous membranes HEENT Narrative: Moderate ANVIK, dentition is fair, no thrush Eyes PERRL, EOMs intact bilaterally and conjunctivae normal Eyes Narrative: No scleral icterus Neck no lymphadenopathy, supple and no JVD Neck Narrative: Trachea midline, no thyroid enlargement Resp normal respiratory effort, no retractions, no use of accessory muscles and clear to auscultation bilaterally Resp Narrative: Diminished but clear Auscultation: Negative for crackles, rales, rhonchi or wheezes Cardio regular rate, regular rhythm, S1 normal heart sound, S2 normal heart sound, no gallops and no clicks GI normal to inspection, nondistended, normoactive bowel sounds, soft to palpation, non-tender and non-distended Extremity Extremity Narrative: Trace bilateral lower extremity edema, right groin with ecchymosis but no bruit, soft, no cyanosis or clubbing Skin no rashes or lesions noted, no wounds, skin turgor normal and no jaundice Neuro oriented x3, CN's II-XII intact bilaterally, moves all extremities and no focal motor deficits Sensorium / Orientation: awake and alert Speech: speech normal Motor Exam: strength 5/5 throughout Psych affect normal Weight / BMI Weight Weight: 96.8 kg Body Mass Index (BMI) 27.7 ABG / Lab / Microbiology Data Result Diagrams: 09/21/21 03:30 09/21/21 03:30 Laboratory: Laboratory Results - last 24 hr 09/20/21 17:25: Activated Clotting Time 172 H 09/21/21 03:30: WBC 10.6, RBC 3.86 L, Hgb 13.5, Hct 39.1 L, MCV 101.3 H, MCH 35.0 H, MCHC 34.5, RDW Std Deviation 48.0 H, RDW Coeff of Bharath 12.8, Plt Count 168, MPV 10.2, Immature Gran % (Auto) 0.500, Neut % (Auto) 77.8 H, Lymph % (Auto) 10.4 L, [place] % (Auto) 9.5, Eos % (Auto) 1.3, Baso % (Auto) 0.5, Absolute Neuts (auto) 8.2 H, Absolute Lymphs (auto) 1.10, Nucleated RBC % 0 09/21/21 03:30: Sodium 139, Potassium 4.3, Chloride 109 H, Carbon Dioxide 25.0, Anion Gap 5, BUN 17, Creatinine 1.00, Estim Creat Clear Calc 79.90, Est GFR (MDRD) Af Amer 95, Est GFR (MDRD) Non-Af 79, BUN/Creatinine Ratio 17.0, Glucose 81, Calcium 8.1 L 09/21/21 03:30: Cortisol 69.10 H Radiography Diagnostic Testing: Radiology Impression Echocardiogram 09/20/21 19:06 Interpretation Summary The study was technically difficult. Contrast injection was performed. Mild segmental systolic dysfunction (see wall motion). The estimated ejection fraction is 45 %. Trivial mitral valve insufficiency. Trivial tricuspid valve insufficiency. Mild focal aortic valve calcification. Trivial pericardial effusion. There are no echocardiographic indications of cardiac tamponade. Unable to estimate RV systolic pressure/pulmonary artery pressure due to technically difficult study. Diastolic function is indeterminate. Ordering Physician: Abhi Flores Referring Physician: Terry Dunbar MD Performed By: Opal Blake RDCS, RVT D/C Instructions Discharge Diet: Low fat / Low cholesterol and 2000 mg Sodium Diet Discharge Activity: Return to Normal Activity Lifting Restricted to (Lbs): 10 Lifting Restrictions: for 1 week Call your doctor if your incision/area has: Sudden Increased Bleeding and Increased Redness Meaningful Use Info Meaningful Use Diagnoses (Choose all that apply): AMI AMI/Post PCI/Angioplasty Aspirin given w/in 24hrs of arrival?: Yes ASA at discharge?: Yes Antiplatelet Therapy at Discharge:: Yes Statins at discharge?: Yes Stanford/ARB at discharge?: No Reason Stanford/ARB not ordered:: Hypotension Beta Renee at discharge?: Yes Done w/ Acute [place] measure.: Yes Documented LVEF (%): 45 Discharge Plan Admission Admit Date/Time: 09/20/21 02:58 Primary Reason for Your Visit: chest pain Attending Provider: Emilia Jasso Primary Care Provider: Terry Dunbar Consulting Providers: Julissa Akhtar ; Terry Dunbar ; Artemio Joyce ; Prasanna Abrams ; Broderick Nur ; Sherman Daugherty ; Tae Doe ; Jerardo Arriola ; Abhi Flores ; Carroll Allen ; Jacob Freitas [employer] ; Ignacia Collins NP ; Carlene Avalos Discharge Orders/Prescriptions Prescriptions: Continued ergocalciferol (vitamin D2) 1,250 mcg (50,000 unit) capsule 50,000 unit PO 2XW RF: 0 levothyroxine 100 mcg tablet 100 mcg PO DAILY RF: 0 potassium chloride 10 mEq tablet extended release 20 meq PO DAILY RF: 0 Anoro Ellipta 62.5-25 mcg/actuation blister with device 1 inh INHALATION DAILY RF: 0 fludrocortisone 0.1 mg tablet 0.1 mg PO TID PRN (Reason: other) RF: 0 clopidogrel 75 MG tablet 75 mg PO DAILY RF: 0 albuterol sulfate 90 mcg/actuation HFA aerosol inhaler 2 puff INHALATION Q4H PRN (Reason: Sob &/Or Wheezing) RF: 0 aspirin 81 MG tablet 81 mg PO DAILY@0800 RF: 0 guaifenesin 1,200 MG tablet extended release 12hr 1,200 mg PO BID PRN (Reason: Allergy Symptoms) RF: 0 pantoprazole 20 MG tablet 40 mg PO DAILY RF: 0 multivitamin with minerals 1 EACH tablet 1 tab PO DAILY RF: 0 sertraline 100 mg tablet 50 mg PO BID RF: 0 meclizine 12.5 MG tablet 12.5 mg PO BID Qty: 60 RF: 0 sucralfate 1 GM tablet 1 tab PO PRN PRN (Reason: Heartburn) RF: 0 fluticasone propion-salmeterol 1 EACH blister with device 1 ea IH DAILY RF: 0 atorvastatin 20 mg Tablet 20 mg PO DAILY RF: 0 ipratropium-albuterol 20-100 mcg/actuation Mist 1 puff INHALATION Q6H PRN (Reason: Wheezing) RF: 0 carvedilol 6.25 mg tablet 6.25 mg PO BID RF: 0 Referrals / Follow Up: Terry Dunbar MD [Primary Care Provider] - 5-7 Days (or your [facility]) Disposition Disposition (needs filled in before D/C Order can be placed): Home, Self Care Charges/Coding Visit Charges Inpatient E&M: 89630 Disch Hosp
--- NOTE | 2021-09-21 16:26 | CASEMGMT ---
[facility] NOTE: Discharge instructions and summary faxed to Ravin Metz CM, @ [phone], per her request. Anson SKELTON RN, CM
== END 2021-09-21 14:15 | disposition home or self-care (01) | DRG 247 ==
LOC: ED 09-20 02:52 → PCU 09-20 03:54 → ICU 09-20 15:53
PROVIDERS: Admitting Provider Internal Medicine; Emergency Provider Emergency Medicine; PCP Internal Medicine Cardiovascular Disease; Visit Provider Internal Medicine
DX: I21.4 Non-ST elevation (NSTEMI) myocardial infarction (principal); I13.0 Hypertensive heart and chronic kidney disease with heart failure and stage 1 through stage 4 chronic kidney disease, or unspecified chronic kidney disease; E27.40 Unspecified adrenocortical insufficiency; J96.11 Chronic respiratory failure with hypoxia; I50.32 Chronic diastolic (congestive) heart failure; J44.9 Chronic obstructive pulmonary disease, unspecified; I73.9 Peripheral vascular disease, unspecified; N18.32 Chronic kidney disease, stage 3b; I25.10 Atherosclerotic heart disease of native coronary artery without angina pectoris; I44.7 Left bundle-branch block, unspecified; I25.5 Ischemic cardiomyopathy; E78.5 Hyperlipidemia, unspecified; I10 Essential (primary) hypertension; I65.23 Occlusion and stenosis of bilateral carotid arteries; E78.00 Pure hypercholesterolemia, unspecified; N40.0 Benign prostatic hyperplasia without lower urinary tract symptoms; E03.9 Hypothyroidism, unspecified; K21.9 Gastro-esophageal reflux disease without esophagitis; I25.2 Old myocardial infarction; Z99.81 Dependence on supplemental oxygen; Z86.73 Personal history of transient ischemic attack (TIA), and cerebral infarction without residual deficits; F32.A Depression, unspecified; Z86.19 Personal history of other infectious and parasitic diseases; Z87.01 Personal history of pneumonia (recurrent); Z85.818 Personal history of malignant neoplasm of other sites of lip, oral cavity, and pharynx; Z79.82 Long term (current) use of aspirin; Z79.899 Other long term (current) drug therapy; Z98.84 Bariatric surgery status; R01.1 Cardiac murmur, unspecified; E66.3 Overweight; Z68.27 Body mass index [BMI] 27.0-27.9, adult; Z92.3 Personal history of irradiation; Z92.21 Personal history of antineoplastic chemotherapy; Z95.1 Presence of aortocoronary bypass graft
CPT/HCPCS: 36415; 71045; 78452; 80048; 80053; 82533; 84484; 85025; 85347; 85379; 85610; 85730; 92937; 93005; 93017; 93306; 93459; 94640; 97802; 99152; 99153; 99285; A9500; C1874; J7030; J7040; J7050; Q9957; Q9967; A4216; C1725; C1769; C1884; C1887; C1894; C8929; C9604; J2405; J2785

== ENCOUNTER 2022-03-12 10:25 | Emergency (ER) | payer MEDICARE, MEDICAID, SELFPAY ==
[2022-03-12 10:27] VITALS: BP 146/97; PULSE 43; RESP 17; TEMP 36.2; O2SAT 97; BMI 27.9
[2022-03-12 11:09] VITALS: BP 107/74; PULSE 79; RESP 18; O2SAT 94
--- NOTE | 2022-03-12 11:37 | EDS_ITS ---
HPI History of Present Illness Chief Complaint: Weakness Informant: patient Onset/Context/Timing Onset: Month(s) (1) Context: Gradual Onset Timing: Continuous Quality: Aching Location: Right postauricular area Worsened by: Standing and activity Relieved by: Laying down and closing his eyes Narrative Narrative: Patient presents with headache, sore throat, and ear pain that has been getting worse over the past month. Patient states his headache is behind his right ear. Patient states his left ear feels full. Patient also admits to a sore throat. Patient describes his pain as aching. Patient states it is better whenever he is able to lay down and closes eyes. Patient states that his symptoms get worse after he has been standing and active for 30 to 60 minutes. Patient is on meclizine for chronic vertigo. Patient also admits to some shortness of breath and cough. Patient denies any nausea or vomiting. [facility] Medical History Acute exacerbation of CHF (congestive heart failure) Acute respiratory failure with hypoxia (10/2019) Adrenal insufficiency Aspiration into airway Atherosclerosis of coronary artery bypass graft without angina pectoris Atherosclerosis of [place] coronary artery of [place] heart without angina pectoris Bilateral carotid artery stenosis BPH (benign prostatic hyperplasia) Chest pain Chronic diastolic (congestive) heart failure Chronic kidney disease Chronic systolic (congestive) heart failure COPD (chronic obstructive pulmonary disease) CVA (cerebral vascular accident) (06/30/19) Depression Dysphagia Elevated troponin (10/2019) Essential hypertension GERD (gastroesophageal reflux disease) History of non-ST elevation myocardial infarction (NSTEMI) (09/20/21) History of throat cancer History of vertebral artery stenosis Hyperlipidemia Hypothyroidism Ischemic cardiomyopathy Non compliance w medication regimen NSTEMI, initial episode of care Orthostatic hypotension Right carotid bruit Right lower lobe pneumonia (10/2019) Septic shock (10/2019) TIA (transient ischemic attack) (07/05/19) Tonsillar cancer Vertigo Home Medications albuterol sulfate 90 mcg/actuation aerosol inhaler 2 puff inhalation Q4H PRN Sob &/Or Wheezing 05/05/19 [History Last Taken 06/29/19 22:00 2 puffs] aspirin 81 mg tablet,delayed release 81 mg PO DAILY@0800 heart health 06/17/19 [History Last Taken 06/29/19 08:00 81 mg] guaifenesin 1,200 mg tablet, extended release 12 hr 1,200 mg PO BID PRN Allergy Symptoms 06/17/19 [History Last Taken 06/29/19 21:30 1200 mg] multivitamin with minerals 1 tab PO DAILY vitamin 06/17/19 [History Last Taken 06/29/19 21:30 1 tab] sertraline 100 mg tablet 50 mg PO BID depression 07/17/19 [History Last Taken Unknown] sucralfate 1 gram tablet 1 tab PO TID 01/02/20 [History Last Taken Unknown] ergocalciferol (vitamin D2) 1,250 mcg (50,000 unit) capsule 50,000 unit PO 2XW 10/18/20 [History Last Taken Unknown] levothyroxine 100 mcg tablet 100 mcg PO MOTUWETHFR 10/18/20 [History Last Taken Unknown] potassium chloride 10 mEq tablet,extended release 20 meq PO DAILY 10/18/20 [History Last Taken Unknown] umeclidinium 62.5 mcg-vilanterol 25 mcg/actuation powdr for inhalation (Anoro Ellipta) 1 inh inhalation DAILY 10/18/20 [History Last Taken Unknown] ipratropium 20 mcg-albuterol 100 mcg/actuation mist for inhalation 1 puff inhalation Q6H PRN Wheezing 03/30/21 [History Last Taken Unknown] atorvastatin 20 mg tablet 20 mg PO DAILY #90 tabs 10/16/21 [Rx Last Taken Unknown] clopidogrel 75 mg tablet 75 mg PO DAILY Antiplatelet therapy #90 tabs 12/20/21 [Rx Last Taken Unknown] azithromycin 250 mg tablet 1 tab PO UD 03/12/22 [History Last Taken Unknown] carvedilol 6.25 mg tablet 0.5 tab PO BID 03/12/22 [History Last Taken Unknown] doxycycline hyclate 100 mg capsule 1 cap PO BID 03/12/22 [History Last Taken Unknown] levothyroxine 100 mcg tablet (Euthyrox) 50 mcg PO SUSA 03/12/22 [History Last Taken Unknown] lisinopril 2.5 mg tablet 2.5 mg PO DAILY 03/12/22 [History Last Taken Unknown] meclizine 12.5 mg tablet 12.5 mg PO BID PRN Dizziness 03/12/22 [History Last Taken Unknown] pantoprazole 40 mg tablet,delayed release 1 tab PO DAILY 03/12/22 [History Last Taken Unknown] prednisone 10 mg tablet 1 tab PO DAILY 03/12/22 [History Last Taken Unknown] Allergy/AdvReac Type Severity Reaction Status Date / Time ranolazine [From Ranexa] AdvReac Intermediate wake up Verified 03/12/22 10:26 at night feeling like choking ciprofloxacin [From Cipro] AdvReac Vomiting Verified 03/12/22 10:26 ciprofloxacin HCl AdvReac Vomiting Verified 03/12/22 10:26 [From Cipro] metronidazole [From Flagyl] AdvReac Vomiting Verified 03/12/22 10:26 ofloxacin [From Floxin] AdvReac Vomiting Verified 03/12/22 10:26 Family History Mother CAD (coronary artery disease) Lung cancer Father Cancer esophageal cancer Brother Diabetes Hypertension Alcoholism Surgical History H/O coronary artery bypass surgery (02/26/13) History of appendectomy History of cholecystectomy History of coronary artery stent placement (09/20/21) History of gastric bypass History of left common carotid artery stent placement (2017) History of left heart catheterization (06/18/19) History of right common carotid artery stent placement (2017) Social History Smoking Status: Never smoker alcohol intake: never substance use type: marijuana and other caffeine: No what type of physical activity do you participate in: none seatbelt use: always do you feel safe at home: Yes ROS ROS ED Constitutional Constitutional ED: Denies chills or fever(s) Eyes Eyes: Reports blurry vision; Denies diplopia ENT ENT ED: Reports ear pain bilateral and sore throat; Denies rhinorrhea Cardiovascular Cardiovascular: Reports chest pain; Denies palpitations Respiratory/Chest Respiratory/Chest: Reports cough and dyspnea Gastrointestinal Gastrointestinal: Denies nausea or vomiting Genitourinary Genitourinary ED: Denies dysuria or hematuria Musculoskeletal Musculoskeletal: Reports back pain and neck pain Integumentary Denies abscess or rash Neurologic Neurologic: Reports headache(s); Denies weakness Allergic/Immunologic Allergic/Immunologic ED: Denies mouth swelling or urticaria EXAM Physical Exam Const Vital Signs: 03/12/22 10:27 03/12/22 11:09 03/12/22 11:09 Temperature 97.2 F L Temperature Source Temporal Pulse Rate 43 L 79 Respiratory Rate 17 18 Respiratory Effort Normal Non-Labored Respiratory Pattern Normal Blood Pressure 146/97 H 107/74 Blood Pressure Mean 113 85 Pulse Ox 97 94 Oxygen Delivery Method Room Air Room Air Positive well nourished, well developed and obese General Appearance ED: well developed and NAD Nutritional Appearance: obese HEENT Reports moist mucous membranes Neck supple and no JVD Neck Narrative: There is tenderness over the right postauricular area and upper cervical paraspinal area. There is no bony crepitance or step-off. There is no edema or erythema. There is no tenderness over the mastoid process. Resp normal respiratory effort and clear to auscultation bilaterally Cardio regular rate, regular rhythm and no murmurs GI normal to inspection, nondistended, normoactive bowel sounds and non-tender Palpation: soft Extremity normal to inspection General Extremety ED: Negative for edema or tenderness General Extremity: Negative for edema Neuro oriented x3, CN's II-XII intact bilaterally and no sensory deficits noted Sensorium / Orientation: alert Motor Exam: strength 5/5 throughout Psych mental status grossly normal Skin no rashes or lesions noted MDM MDM MDM Narrative Medical decision making narrative: Patient was given Reglan and Benadryl here. CBC shows a slight leukocytosis of 12.8. This is consistent with prior results. Comprehensive metabolic profile was within normal limits. High-sensitivity troponin was normal. EKG was obtained. On my interpretation, it showed a normal sinus rhythm with a rate of 74 with frequent PVCs. VT interval, QRS interval, and QTc intervals were all normal. [place] was normal. There are no acute ST or T wave changes. CT scan of the brain was obtained. There are chronic involutional changes noted. There is no acute intracranial abnormality. This was interpreted by the radiologist and reviewed by myself. CT scan of the orbit sella and ear were obtained. There is no evidence of mastoiditis. There is no acute abnormality. This was also interpreted by the radiologist and reviewed by myself. Portable 1 view chest x- ray was obtained. On my interpretation, lung haines are clear. There is normal cardiac silhouette. Bony thorax is normal. There is no acute process noted. Radiologist also interpreted the x-ray and agrees. Patient was feeling somewhat better on reevaluation. Patient was advised of his findings. Patient was instructed to follow-up with his primary care physician in 5 to 7 days. Patient and spouse understood and were agreeable with the plan. All questions were answered. Lab Data Attestation: I reviewed the patient's lab results. Labs: Laboratory Results - last 24 hr 03/12/22 03/12/22 10:40 10:40 WBC 12.8 H RBC 4.30 L Hgb 14.4 Hct 44.3 MCV 103.0 H MCH 33.5 H MCHC 32.5 RDW Std Deviation 53.8 H RDW Coeff of Bharath 14.2 Plt Count 187 MPV 10.7 Immature Gran % (Auto) 0.900 Neut % (Auto) 82.2 H Lymph % (Auto) 9.4 L Foster % (Auto) 6.2 Eos % (Auto) 0.8 Baso % (Auto) 0.5 Absolute Neuts (auto) 10.6 H Absolute Lymphs (auto) 1.21 Nucleated RBC % 0 Sodium 139 Potassium 4.1 Chloride 107 Carbon Dioxide 25.0 Anion Gap 7 BUN 22 H Creatinine 1.26 Estim Creat Clear Calc 60.73 Est GFR (MDRD) Af Amer 73 Est GFR (MDRD) Non-Af 60 BUN/Creatinine Ratio 17.5 Glucose 105 Calcium 9.0 Total Bilirubin 0.60 AST 21 ALT 26 Alkaline Phosphatase 45 Troponin I High Sens 13 Total Protein 6.9 Albumin 3.3 Globulin 3.6 Albumin/Globulin Ratio 0.9 Radiography Diagnostic Testing: Clinical Impression(s) from Imaging Studies Brain CT 03/12/22 11:41 IMPRESSION: Chronic involutional changes of the brain. Electronically Signed: Mckay Blackwood MD at 13:06 EDT , CT Orbit Sella Inner 03/12/22 11:41 IMPRESSION: Normal unenhanced CT examination of the bilateral temporal bones (I.A.C.''s). of the bilateral orbits. Electronically Signed: Mckay Blackwood MD at 13:08 EDT , Chest X-Ray 03/12/22 12:34 IMPRESSION: Prior CABG. No acute abnormality is seen. Electronically Signed: Mckay Blackwood MD at 13:10 EDT , EKG Initial EKG: Attestation: I personally reviewed and interpreted this EKG as follows: Interpretation: Sinus Rhythm (74 with frequent PVCs) and No Acute Injury Pattern Prior EKG tracings: available for review Prior: Unchanged (09/20/2021) Discharge Plan Triage Chief Complaint: Weakness ED Provider: Broderick Mansfield Dx/Rx/DC Orders Clinical Impression: Headache, History of throat cancer, Orthostatic hypotension Instructions: ED Pain, Acute, Uncertain Cause Prescriptions: No Action ergocalciferol (vitamin D2) 1,250 mcg (50,000 unit) capsule 50,000 unit PO 2XW Label Comments: TAKE 1 CAPSULE BY MOUTH TWICE A WEEK levothyroxine 100 mcg tablet 100 mcg PO MOTUWETHFR Rx Instructions: On Saturdays & Sundays take 50 mcg. potassium chloride 10 mEq tablet extended release 20 meq PO DAILY Label Comments: TAKE 2 TABLETS BY MOUTH ONCE DAILY WITH BREAKFAST Anoro Ellipta 62.5-25 mcg/actuation blister with device 1 inh INHALATION DAILY atorvastatin 20 mg tablet 20 mg PO DAILY Qty: 90 3RF albuterol sulfate 90 mcg/actuation HFA aerosol inhaler 2 puff INHALATION Q4H PRN (Reason: Sob &/Or Wheezing) aspirin 81 MG tablet 81 mg PO DAILY@0800 guaifenesin 1,200 MG tablet extended release 12hr 1,200 mg PO BID PRN (Reason: Allergy Symptoms) multivitamin with minerals 1 EACH tablet 1 tab PO DAILY sertraline 100 mg tablet 50 mg PO BID sucralfate 1 GM tablet 1 tab PO TID Rx Instructions: ON HOLD WHILE TAKING DOXY ipratropium-albuterol 20-100 mcg/actuation Mist 1 puff INHALATION Q6H PRN (Reason: Wheezing) carvedilol 6.25 mg tablet 0.5 tab PO BID Label Comments: TAKE 1 TABLET BY MOUTH TWICE DAILY WITH FOOD doxycycline hyclate 100 mg capsule 1 cap PO BID Rx Instructions: x10 days azithromycin 250 mg tablet 1 tab PO UD Label Comments: TAKE 1 TABLET BY MOUTH ONCE DAILY Rx Instructions: on hold while on doxy for 10 days levothyroxine [Euthyrox] 100 mcg Tablet 50 mcg PO SUSA prednisone 10 mg tablet 1 tab PO DAILY Label Comments: TAKE 1 TABLET BY MOUTH ONCE DAILY pantoprazole 40 mg tablet,delayed release (DR/EC) 1 tab PO DAILY Label Comments: TAKE 1 TABLET BY MOUTH ONCE DAILY 30 MINUTES BEFORE A MEAL ON AN EMPTY STOMACH. lisinopril 2.5 mg Tablet 2.5 mg PO DAILY meclizine 12.5 MG tablet 12.5 mg PO BID PRN (Reason: Dizziness) clopidogrel 75 mg tablet 75 mg PO DAILY Qty: 90 3RF Primary Care Provider: Kelley Tolbert Referrals: Kelley Tolbert MD [Primary Care Provider] - 3-5 Days Disposition Disposition: Home, Self Care
--- NOTE | 2022-03-12 11:41 | CT_ITS ---
STUDY: CT TEMPORAL BONES WITHOUT CONTRAST - ATTN: I.A.C. S REASON FOR EXAM: Male, 71 years old. Dizziness RADIATION DOSAGE (If Supplied By Facility): CTDIvol = ( 67.58 ) mGy, DLP = ( 582.46 ) mGycm TECHNIQUE: The patient was scanned in a multi detector CT scanner. Transaxial imaging was performed without the administration of intravenous contrast material. Sagittal and coronal images were reconstructed. Individualized dose optimization techniques were used for this CT. COMPARISON: None. FINDINGS: RIGHT TEMPORAL BONE Normal right internal auditory canal. Normal visualized ossicles and tympanic cavity. Normal right cochlea and semicircular canals. Normal vestibular aqueduct. Normal right petrous carotid artery. Normal right jugular fossa. Normal right mastoid air cells. Normal right petrous apex. LEFT TEMPORAL BONE Normal left internal auditory canal. Normal visualized ossicles and tympanic cavity. Normal left cochlea and semicircular canals. Normal vestibular aqueduct. Normal left petrous carotid artery. Normal right jugular fossa. Normal left mastoid air cells. Normal left petrous apex. CT/Orb Sella Post Fossa Ear w/o IMPRESSION: Normal unenhanced CT examination of the bilateral temporal bones (I.A.C.''s). of the bilateral orbits. Electronically Signed: Mckay Blackwood MD at 13:08 EDT ,
--- NOTE | 2022-03-12 11:41 | CT_ITS ---
STUDY: CT BRAIN WITHOUT CONTRAST REASON FOR EXAM: Male, 71 years old. One-month history of weakness and dizziness. Headaches. RADIATION DOSAGE (If Supplied By Facility): CTDIvol = ( 44.99 ) mGy, DLP = ( 812.98 ) mGycm TECHNIQUE: Transaxial CT imaging of the brain was performed without administration of intravenous contrast material. Individualized dose optimization techniques were used for this CT. COMPARISON: Comparison is made with prior study dated 07/05/2019. FINDINGS: Normal soft tissue structures. Normal calvarium. There is mild cerebral atrophy with widening of the extra-axial spaces and ventricular dilatation. There are areas of decreased attenuation within the white matter tracts of the supratentorial brain, consistent with microvascular disease changes. Old tiny lacunae in the right basal ganglia. Normal brainstem. Normal cerebellum. There is no intracranial hemorrhage. There are no findings of an acute ischemic infarction. Atherosclerotic calcification of the vertebral arteries and cavernous portions of the internal carotid arteries bilaterally. Normal visualized paranasal sinuses. CT/Brain/Head without Contrast IMPRESSION: Chronic involutional changes of the brain. Electronically Signed: Mckay Blackwood MD at 13:06 EDT ,
--- NOTE | 2022-03-12 11:43 | EKG12_ITS ---
Test Reason : weakness Blood Pressure : / mmHG Vent. Rate : 074 BPM Atrial Rate : 074 BPM P-R Int : 180 ms QRS Dur : 100 ms QT Int : 392 ms P-R-T Axes : 065 042 081 degrees QTc Int : 435 ms Sinus rhythm with frequent Premature ventricular complexes Confirmed by LISSETTE HANNA, DELFINA ([id number]), acquisition editor REUBEN NARANJO ([id number]) on 03/13/2022 9:28:25 AM Referred By: Confirmed By:DELFINA MCLAUGHLIN MD
[2022-03-12 12:04] LABS: Absolute Lymphocyte Count 1.21 X10^3/uL (0.83-4.51); Absolute Neutrophil Count 10.6 X10^3/uL (2.0-7.7); Basophil# 0.06 X10^3/uL; Basophil% 0.5 % (0-1); Eosinophils% 0.8 % (0-5); Hematocrit 44.3 % (40-54); Hemoglobin 14.4 g/dL (13.0-16.5); Lymphocyte # 1.21 X10^3/ul (0.83-4.51); Lymphocyte % 9.4 % (19-41); Mean Corp Hgb Conc 32.5 g/dL (32-36); Mean Corpuscular Hgb 33.5 pg (27.0-32.0); Mean Platelet Vol. 10.7 fl (6.2-12.0); Monocyte# 0.79 X10^3/uL; Monocyte% 6.2 % (0-10); NRBC Flagged by Analyzer 0 % (0-5); Neutrophil # 10.55 X10^3/uL (2.7-7.7); Neutrophil % 82.2 % (47-70); Platelet Count 187 K/mm3 (150-450); RBC Distribution Width CV 14.2 % (11.6-14.6); RBC Distribution Width SD 53.8 fl (35.1-43.9); White Blood Count 12.8 K/mm3 (4.4-11.0)
[2022-03-12] MEDS: DiphenhydrAMINE 50 MG/ML Syringe 25 MG IV (12:09)
[2022-03-12] MEDS: Metoclopramide 10 MG/2 ML Vial IV (12:09)
[2022-03-12 12:31] LABS: ALB/GLOB Ratio 0.9 RATIO (0.9-2.4); AST(SGOT) 21 U/L (15-37); Alanine Aminotransfer ALT/SGPT 26 U/L (16-61); Albumin, Serum 3.3 g/dL (3.2-5.0); Alkaline Phosphatase 45 U/L (45-117); Anion Gap 7 (5-15); BUN 22 mg/dL (7-18); BUN/Creat Ratio 17.5 RATIO (10-20); Chloride 107 mmol/L (98-107); Creatinine, Serum 1.26 mg/dL (0.70-1.30); EST Glomerular Filtration Rate 60 mL/min (>60); Est Glom Filt Rate - Afr Amer 73 mL/min (>60); Estimated Creatinine Clearance 60.73 ml/min; Globulin 3.6 g/dL (2.2-4.2); Glucose 105 mg/dL (74-106); Potassium 4.1 mmol/L (3.5-5.1); Protein, Total 6.9 g/dL (6.4-8.2); Sodium Level 139 mmol/L (136-145); Troponin-I HS 13 pg/mL (3.0-78.0)
--- NOTE | 2022-03-12 12:34 | RAD_ITS ---
STUDY: X-RAY CHEST REASON FOR EXAM: Male, 71 years old. Cough TECHNIQUE: Single AP portable view of the chest. COMPARISON: Comparison is made with prior study dated 09/20/2021. FINDINGS: EKG electrodes are seen. Surgical clips are seen in the right cervical region. The lungs are clear and expanded. There is no demonstrated pleural abnormality. Sternal cerclage wires and vascular clips are present from a prior sternotomy and coronary artery bypass graft procedure (CABG). Normal mediastinum and becca. Normal visualized pulmonary arteries. There is atherosclerotic calcification of the aortic arch with tortuosity. There are diffuse degenerative changes of the visualized thoracic spine. Normal visualized ribs, clavicles, and shoulders. There is no demonstrated abnormality of the visualized soft tissue structures of the upper abdomen. RAD/Chest 1 View (Portable) IMPRESSION: Prior CABG. No acute abnormality is seen. Electronically Signed: Mckay Blackwood MD at 13:10 EDT ,
[2022-03-12 14:17] VITALS: BP 143/102; PULSE 79; RESP 18; O2SAT 96
== END 2022-03-12 14:23 | disposition home or self-care (01) ==
PROVIDERS: Emergency Provider Emergency Medicine; PCP Internal Medicine; Visit Provider Emergency Medicine
DX: R51.9 Headache, unspecified (principal); J44.9 Chronic obstructive pulmonary disease, unspecified; I13.0 Hypertensive heart and chronic kidney disease with heart failure and stage 1 through stage 4 chronic kidney disease, or unspecified chronic kidney disease; I50.9 Heart failure, unspecified; N18.9 Chronic kidney disease, unspecified; I25.10 Atherosclerotic heart disease of native coronary artery without angina pectoris; N40.0 Benign prostatic hyperplasia without lower urinary tract symptoms; Z86.73 Personal history of transient ischemic attack (TIA), and cerebral infarction without residual deficits; F32.A Depression, unspecified; K21.9 Gastro-esophageal reflux disease without esophagitis; I25.2 Old myocardial infarction; I65.23 Occlusion and stenosis of bilateral carotid arteries; E78.5 Hyperlipidemia, unspecified; E03.9 Hypothyroidism, unspecified; I25.5 Ischemic cardiomyopathy; Z86.19 Personal history of other infectious and parasitic diseases; Z87.01 Personal history of pneumonia (recurrent); Z79.82 Long term (current) use of aspirin; Z79.899 Other long term (current) drug therapy; Z95.1 Presence of aortocoronary bypass graft; E66.9 Obesity, unspecified; I95.1 Orthostatic hypotension; Z68.27 Body mass index [BMI] 27.0-27.9, adult
CPT/HCPCS: 70450; 70480; 71045; 80053; 84484; 85025; 87811; 93005; 96374; 96375; 99283; A4216

== ENCOUNTER 2022-07-15 08:56 | Emergency (ER) | payer MEDICARE, MEDICAID, SELFPAY ==
[2022-07-15 08:57] VITALS: TEMP 34.4; BMI 28.4
--- NOTE | 2022-07-15 09:11 | EDS_ITS ---
HPI History of Present Illness Chief Complaint: CPR Detail of Chief Complaint: Squad called prior to arrival with a full arrest. Informant: spouse/S.O. and EMS Onset/Context/Timing Onset: Today Context: Sudden Onset Timing: Continuous Current Severity: Severe Maximum Severity: Severe Narrative Narrative: 71-year-old male history of a prior quadruple bypass, carotid stents, throat cancer, radiation therapy with radiation le, COPD on home O2. Reportedly the family called the squad day due to shortness of breath. Squad was out checked out the patient. He did not want to come the hospital at that time. They had left the scene. Later called and the patient was in full arrest and collapsed in his room on his bed. Squad arrived. The patient was in V. tach V. fib arrest. He was defibrillated twice at 203 100 J. He went to [facility]. He was given a total of 6 rounds of epinephrine and they perform CPR. He may have developed a thready pulse. They placed an eye gel. And he had a left shoulder IO in place. Prior similar symptoms: No Recent Illness/Hospitalization: No [facility] Medical History Acute exacerbation of CHF (congestive heart failure) Acute respiratory failure with hypoxia (10/2019) Adrenal insufficiency Aspiration into airway Atherosclerosis of coronary artery bypass graft without angina pectoris Atherosclerosis of [place] coronary artery of [place] heart without angina pectoris Bilateral carotid artery stenosis BPH (benign prostatic hyperplasia) Chest pain Chronic diastolic (congestive) heart failure Chronic kidney disease Chronic systolic (congestive) heart failure COPD (chronic obstructive pulmonary disease) CVA (cerebral vascular accident) (06/30/19) Depression Dysphagia Elevated troponin (10/2019) Essential hypertension GERD (gastroesophageal reflux disease) History of non-ST elevation myocardial infarction (NSTEMI) (09/20/21) History of throat cancer History of vertebral artery stenosis Hyperlipidemia Hypothyroidism Ischemic cardiomyopathy Non compliance w medication regimen NSTEMI, initial episode of care Orthostatic hypotension Right carotid bruit Right lower lobe pneumonia (10/2019) Septic shock (10/2019) TIA (transient ischemic attack) (07/05/19) Tonsillar cancer Vertigo Home Medications albuterol sulfate 90 mcg/actuation aerosol inhaler 2 puff inhalation Q4H PRN Sob &/Or Wheezing 05/05/19 [History Last Taken 06/29/19 22:00 2 puffs] aspirin 81 mg tablet,delayed release 81 mg PO DAILY@0800 heart health 06/17/19 [History Last Taken 06/29/19 08:00 81 mg] guaifenesin 1,200 mg tablet, extended release 12 hr 1,200 mg PO BID PRN Allergy Symptoms 06/17/19 [History Last Taken 06/29/19 21:30 1200 mg] multivitamin with minerals 1 tab PO DAILY vitamin 06/17/19 [History Last Taken 06/29/19 21:30 1 tab] sertraline 100 mg tablet 50 mg PO BID depression 07/17/19 [History Last Taken Unknown] levothyroxine 100 mcg tablet 100 mcg PO MOTUWETHFR 10/18/20 [History Last Taken Unknown] umeclidinium 62.5 mcg-vilanterol 25 mcg/actuation powdr for inhalation (Anoro Ellipta) 1 inh inhalation DAILY 10/18/20 [History Last Taken Unknown] atorvastatin 20 mg tablet 20 mg PO DAILY #90 tabs 10/16/21 [Rx Last Taken Unknown] clopidogrel 75 mg tablet 75 mg PO DAILY Antiplatelet therapy #90 tabs 12/20/21 [Rx Last Taken Unknown] azithromycin 250 mg tablet 1 tab PO UD 03/12/22 [History Last Taken Unknown] levothyroxine 100 mcg tablet (Euthyrox) 50 mcg PO SUSA 03/12/22 [History Last Taken Unknown] meclizine 12.5 mg tablet 12.5 mg PO BID PRN Dizziness 03/12/22 [History Last Taken Unknown] pantoprazole 40 mg tablet,delayed release 1 tab PO DAILY 03/12/22 [History Last Taken Unknown] prednisone 10 mg tablet 1 tab PO DAILY 03/12/22 [History Last Taken Unknown] carvedilol 3.125 mg tablet 3.125 mg PO .COMPLEX #30 tabs 05/28/22 [Rx Last Taken Unknown] ergocalciferol (vitamin D2) 1,250 mcg (50,000 unit) capsule 50,000 unit PO QWEEK 05/28/22 [History Last Taken Unknown] ipratropium 20 mcg-albuterol 100 mcg/actuation mist for inhalation 1 puff inhalation ONCE PRN Wheezing 05/28/22 [History Last Taken Unknown] potassium chloride 10 mEq tablet,extended release 20 meq PO .COMPLEX 05/28/22 [History Last Taken Unknown] sucralfate 1 gram tablet 1 g PO TID PRN 05/28/22 [History Last Taken Unknown] Allergy/AdvReac Type Severity Reaction Status Date / Time ranolazine [From Ranexa] AdvReac Intermediate wake up Verified 05/28/22 14:31 at night feeling like choking ciprofloxacin [From Cipro] AdvReac Vomiting Verified 05/28/22 14:31 ciprofloxacin HCl AdvReac Vomiting Verified 05/28/22 14:31 [From Cipro] metronidazole [From Flagyl] AdvReac Vomiting Verified 05/28/22 14:31 ofloxacin [From Floxin] AdvReac Vomiting Verified 05/28/22 14:31 Family History Mother CAD (coronary artery disease) Lung cancer Father Cancer esophageal cancer Brother Diabetes Hypertension Alcoholism Surgical History H/O coronary artery bypass surgery (02/26/13) History of appendectomy History of cholecystectomy History of coronary artery stent placement (09/20/21) History of gastric bypass History of left common carotid artery stent placement (2017) History of left heart catheterization (06/18/19) History of right common carotid artery stent placement (2018) Social History Smoking Status: Never smoker alcohol intake: never substance use type: marijuana caffeine: Yes (Takes 400 mg of caffeine tablet daily) Type: other what type of physical activity do you participate in: none seatbelt use: always do you feel safe at home: Yes ROS ROS ED ROS Narrative No recent illness. Review of Systems ROS Unobtainable: due to endotracheal tube EXAM Physical Exam Narrative Exam Narrative: 71-year-old male full arrest. Asystole on the monitor. Pupils fixed and dilated 4 mm. Nonreactive to light. Eye gel in place. Left shoulder IO in place. We removed the automatic CPR device. Using the ultrasound he had no cardiac activity. Team was called and time of was 8:57 AM. Const Vital Signs: 07/15/22 08:57 Temperature 94 F L Temperature Source Temporal Positive well nourished and well developed; Negative for obese, cachectic, contractures or unkempt General Appearance ED: well developed and pallor; Negative for unkempt, cachectic, contractures or NAD Nutritional Appearance: Negative for cachectic or obese HEENT normocephalic and atraumatic; Negative for trauma Eyes Negative for PERRL or EOMs intact bilaterally Eyes Narrative: Pupils are 4 mm fixed and dilated. Nonreactive to light. General Eye ED: Yes pale conjunctiva; Negative for scleral icterus Neck No full ROM, no lymphadenopathy and supple Cardio Cardio Narrative: Full arrest. Asystole. Rate: Negative for bradycardia GI non-tender, non-distended and no masses Inspection: Negative for abdominal distention Auscultation: normoactive bowel sounds Palpation: soft; Negative for tender or guarding Neuro Neuro Narrative: Completely unresponsive. Pupils fixed and dilated. Flaccid no spontaneous respirations. No movement. Does not respond to noxious stimuli. Sensorium / Orientation: Negative for alert, oriented to person, oriented to place or oriented to time Motor Exam: Negative for strength 5/5 throughout Psych Negative for mental status grossly normal Appearance: Negative for unkempt Skin General Skin Exam: pallor; Negative for jaundice Lesions: no lesions Rashes: no rashes Trauma: Negative for abrasion MDM MDM MDM Narrative Medical decision making narrative: 71-year-old male extensive past medical history. Full cardiopulmonary arrest. Underwent CPR for 20 to 25 minutes without any significant response. 6 rounds of epinephrine. Defibrillated twice in the field. He had no cardiac tibia on arrival. Given all his medical problems and prior attempts to restart his heart he was pronounced at 0 8:57 AM on 07/15/2022. I did speak to the patient's and granddaughter along with our charge nurse. said he was ready to . He had made arrangements. Discharge Plan Triage Chief Complaint: CPR ED Provider: Corey Nieto Dx/Rx/DC Orders Clinical Impression: Cardiopulmonary arrest, COPD (chronic obstructive pulmonary disease) with emphysema, History of CAD (coronary artery disease), Hx of CABG, Prescriptions: No Action levothyroxine 100 mcg tablet 100 mcg PO MOTUWETHFR Rx Instructions: On Saturdays & Sundays take 50 mcg. Anoro Ellipta 62.5-25 mcg/actuation blister with device 1 inh INHALATION DAILY ergocalciferol (vitamin D2) 1,250 mcg (50,000 unit) capsule 50,000 unit PO QWEEK potassium chloride 10 mEq tablet extended release 20 meq PO .COMPLEX Rx Instructions: 20 mEq orally Takes a couple times per week; atorvastatin 20 mg tablet 20 mg PO DAILY Qty: 90 3RF carvedilol 3.125 mg tablet 3.125 mg PO .COMPLEX Qty: 30 11RF Rx Instructions: 3.125 mg orally daily; albuterol sulfate 90 mcg/actuation HFA aerosol inhaler 2 puff INHALATION Q4H PRN (Reason: Sob &/Or Wheezing) aspirin 81 MG tablet 81 mg PO DAILY@0800 guaifenesin 1,200 MG tablet extended release 12hr 1,200 mg PO BID PRN (Reason: Allergy Symptoms) multivitamin with minerals 1 EACH tablet 1 tab PO DAILY sertraline 100 mg tablet 50 mg PO BID sucralfate 1 gram tablet 1 g PO TID PRN Rx Instructions: ON HOLD WHILE TAKING DOXY ipratropium-albuterol 20-100 mcg/actuation mist 1 puff INHALATION ONCE PRN (Reason: Wheezing) azithromycin 250 mg tablet 1 tab PO UD Label Comments: TAKE 1 TABLET BY MOUTH ONCE DAILY Rx Instructions: on hold while on doxy for 10 days levothyroxine [Euthyrox] 100 mcg Tablet 50 mcg PO SUSA prednisone 10 mg tablet 1 tab PO DAILY Label Comments: TAKE 1 TABLET BY MOUTH ONCE DAILY pantoprazole 40 mg tablet,delayed release (DR/EC) 1 tab PO DAILY Label Comments: TAKE 1 TABLET BY MOUTH ONCE DAILY 30 MINUTES BEFORE A MEAL ON AN EMPTY STOMACH. meclizine 12.5 MG tablet 12.5 mg PO BID PRN (Reason: Dizziness) clopidogrel 75 mg tablet 75 mg PO DAILY Qty: 90 3RF Primary Care Provider: Kelley Tolbert Referrals: Kelley Tolbert MD [Primary Care Provider] - Disposition Disposition:
== END 2022-07-15 10:09 ==
PROVIDERS: Emergency Provider Emergency Medicine; PCP Internal Medicine; Visit Provider Emergency Medicine
DX: I46.9 Cardiac arrest, cause unspecified (principal); J43.9 Emphysema, unspecified; I13.0 Hypertensive heart and chronic kidney disease with heart failure and stage 1 through stage 4 chronic kidney disease, or unspecified chronic kidney disease; I50.42 Chronic combined systolic (congestive) and diastolic (congestive) heart failure; I25.10 Atherosclerotic heart disease of native coronary artery without angina pectoris; N18.9 Chronic kidney disease, unspecified; E78.5 Hyperlipidemia, unspecified; Z95.1 Presence of aortocoronary bypass graft
CPT/HCPCS: 92950; 99282